=== PATIENT | female | born 1945 | race Caucasian/White ===

== ENCOUNTER 2020-07-14 13:06 | Outpatient (REF) | payer MEDICARE, OTHER, SELFPAY ==
--- NOTE | 2020-07-14 13:18 | XR_ITS ---
EXAMINATION: XR WRIST, RIGHT CLINICAL INFORMATION: Fracture follow-up COMPARISON: 06/20/2020 TECHNIQUE: PA, lateral, and oblique views of the right wrist. FINDINGS: Bones are demineralized. Overlying fiberglass cast obscures fine osseous detail. Previously seen nondisplaced fracture of the mid scaphoid waist is faintly appreciated. Moderate first CMC arthrosis. IMPRESSION: No change in alignment of the mid scaphoid waist fracture, which is poorly characterized beneath the fiberglass cast.
== END 2020-07-14 13:07 | disposition home or self-care (01) ==
LOC: HO.XRAY 13:06
PROVIDERS: PCP Internal Medicine; Referring Provider Internal Medicine; Visit Provider Physician Assistant
DX: S62.009D Unspecified fracture of navicular [scaphoid] bone of unspecified wrist, subsequent encounter for fracture with routine healing (principal); I10 Essential (primary) hypertension; E78.5 Hyperlipidemia, unspecified
CPT/HCPCS: 73100; 99212

== ENCOUNTER 2020-08-05 12:33 | Outpatient (REF) | payer MEDICARE, OTHER, SELFPAY ==
--- NOTE | 2020-08-05 12:36 | XR_ITS ---
EXAMINATION: XR WRIST, RIGHT CLINICAL INFORMATION: Follow up scaphoid fracture COMPARISON: Previous x-ray June and July 2020 TECHNIQUE: PA, lateral, and scaphoid views of the right wrist. FINDINGS: There is a transverse nondisplaced fracture of the mid scaphoid bone. Fracture line is still seen. There is increasing bony callus formation suggestive of evidence of healing. No other fracture is seen. There are degenerative changes at the first FDC joint. Soft tissues are unremarkable. XR/XR wrist RT min 3V IMPRESSION: Healing right scaphoid fracture.
== END 2020-08-05 12:34 | disposition home or self-care (01) ==
LOC: HO.HOSX 12:33
PROVIDERS: Visit Provider Physician Assistant
DX: S62.001A Unspecified fracture of navicular [scaphoid] bone of right wrist, initial encounter for closed fracture (principal); M81.0 Age-related osteoporosis without current pathological fracture; I10 Essential (primary) hypertension
CPT/HCPCS: 29075; 73110; 99212

== ENCOUNTER 2020-09-11 08:05 | Outpatient (REF) | payer MEDICARE, OTHER, SELFPAY ==
--- NOTE | 2020-09-11 13:00 | XR_ITS ---
EXAMINATION: XR HAND, RIGHT CLINICAL INFORMATION: Navicular fracture COMPARISON: August 05, 2020 and studies dating back to June 20, 2020 TECHNIQUE: Four views of the right hand and wrist. FINDINGS: There is osteopenia visualized bones. There is again noted to be a nondisplaced fracture of the mid scaphoid bone again there has been some progression in healing with the fracture line not appearing as evident. No dislocation identified. There is some degenerative change of the triscaphe joint and of the first carpometacarpal joint. There is also some degenerative narrowing of the second through fourth distal interphalangeal joints. XR/XR hand RT min 3V IMPRESSION: Osteopenia. Progression in healing of right navicular fracture. Degenerative change as described.
== END 2020-09-11 08:06 | disposition home or self-care (01) ==
LOC: HO.HOSX 08:05
PROVIDERS: Visit Provider Physician Assistant
DX: S62.009A Unspecified fracture of navicular [scaphoid] bone of unspecified wrist, initial encounter for closed fracture (principal)
CPT/HCPCS: 73130; 99212

== ENCOUNTER 2021-08-21 13:45 | Emergency (ER) | payer MEDICARE, OTHER, SELFPAY ==
--- NOTE | ~2021-08-21 | CT_ITS ---
EXAMINATION: CT ABDOMEN AND PELVIS WITH CONTRAST CLINICAL INFORMATION: Lower abdominal pain. Diarrhea. COMPARISON: Report pelvic ultrasound 10/11/2012. Lumbar spine radiographs 06/20/2022 TECHNIQUE: Multidetector volumetric images were obtained from the superior aspect of the liver through the pubic symphysis following administration 85 mL of Omnipaque 350 intravenous contrast. Sagittal and coronal reformatted images were obtained on the technologist's workstation. Oral contrast: No This CT examination was performed using dose optimization techniques as appropriate, variously including the following: *Automated exposure control *Adjustment of mA and/or kV according to patient size (this includes techniques or standardized protocols for targeted exams where dose is matched to indication/reason for exam; i.e. extremities or head) *Use of iterative reconstruction technique DLP: 907 mGy-cm FINDINGS: LUNG BASES: The visualized lung bases are unremarkable. LIVER, GALLBLADDER, AND BILIARY TREE: The liver is normal in size, shape, and attenuation. No focal hepatic lesion or biliary ductal dilatation is present. Gallbladder is absent and multiple surgical clips are present within the gallbladder fossa. No biliary duct dilatation. The common bile duct measures 6 mm in diameter. PANCREAS: Unremarkable. SPLEEN: Approximately 1 cm linear calcifications along the superior margin of the surface of the spleen and is benign in appearance. ADRENAL GLANDS: Unremarkable. KIDNEYS AND URETERS: No suspicious parenchymal lesions. No hydronephrosis or perinephric inflammatory changes. No urolithiasis identified. BLADDER: Unremarkable. GASTROINTESTINAL TRACT: Moderate diverticulosis of the sigmoid colon. Minimal diverticulosis of the descending colon. The appendix is not visualized. Normal terminal ileum. No pericecal inflammatory changes. No free intraperitoneal fluid or gas collections. Normal appearance of the sigmoid and small bowel mesentery is. No intestinal mural thickening or dilatation. ABDOMINAL WALL: No significant hernia is appreciated. LYMPH NODES: Normal. VASCULAR: Mild scattered calcific atherosclerosis. PELVIC VISCERA: No adnexal lesions. Normal vertebral uterus. OSSEOUS STRUCTURES: No acute skeletal abnormalities identified. Chronic appearing mild anterior wedge deformity of the L4 vertebral body is present. An acute L4 fracture was noted on the comparison study of 06/20/2020. Multilevel endplate discogenic marrow signal changes, and vertebral disc space vacuum phenomena, Schmorl's node deformities are noted. CT/CT abdomen pelvis w con IMPRESSION: IV contrast-enhanced CT the abdomen and pelvis: -No acute abnormalities identified. -Moderate sigmoid diverticulosis. No evidence of acute diverticulitis. -Status post cholecystectomy. 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 Multilevel chronic spondylosis of the visualized thoracic and lumbar spine. -The appendix is not visualized and may be surgically absent.
[2021-08-21 13:57] VITALS: BP 158/71; PULSE 83; RESP 18; TEMP 37.3; O2SAT 83; BMI 36.8
--- NOTE | 2021-08-21 14:49 | ECG_ITS ---
Test Reason : WEAKNESS Blood Pressure : / mmHG Vent. Rate : 075 BPM Atrial Rate : 075 BPM P-R Int : 176 ms QRS Dur : 094 ms QT Int : 404 ms P-R-T Axes : 047 067 023 degrees QTc Int : 451 ms Normal sinus rhythm RSR' or QR pattern in V1 suggests right ventricular conduction delay Otherwise normal ECG No previous ECGs available Referred By: Gloria Gambino Electronically Signed By:KARLEE VILLA MD
--- NOTE | 2021-08-21 14:59 | ED.GENADULT ---
HPI - General Adult General Chief complaint: General Medical Stated complaint: pelvic pain diarrhea not eating Time Seen by Provider: 08/21/21 14:41 Source: patient Mode of arrival: ambulatory Limitations: no limitations History of Present Illness HPI narrative: 75-year-old female with a history of GERD, hypertension, hyperlipidemia, anxiety, depression here with complaints of lower abdominal cramping for the last 2-3 weeks with associated diarrhea and chills. Patient denies any vomiting, urinary symptoms. Patient tells me she did drop off a stool sample at the lab this morning for testing but is unsure what testing will be done. No recent antibiotics. No recent travel. No recent hospitalization. No sick contact. Fully vaccinated for COVID Related Data Home Medications Medication Instructions Recorded Confirmed amlodipine 2.5 mg tablet 2.5 mg PO DAILY 07/14/20 atorvastatin 10 mg tablet 10 mg PO BEDTIME 07/14/20 cholecalciferol (vitamin D3) 1,250 1,250 mcg PO QWEEK 07/14/20 mcg (50,000 unit) capsule fluoxetine 10 mg capsule 10 mg PO DAILY 07/14/20 lorazepam 0.5 mg tablet 0.5 mg PO BEDTIME PRN 07/14/20 omeprazole 20 mg capsule,delayed 20 mg PO DAILY 07/14/20 release vitamin B complex (B 1 tab PO DAILY 07/14/20 Complex-Vitamin B12) calcium carbonate 500 mg calcium 500 mg PO DAILY 08/05/20 (1,250 mg) tablet (Calcium 500) Previous Rx's Medication Instructions Recorded arm brace (Wrist Brace) #1 ea 09/17/20 dicyclomine 10 mg capsule 10 mg PO TID PRN #20 cap 08/21/21 Allergies Allergy/AdvReac Type Severity Reaction Status Date / Time No Known Allergies* Allergy Unknown Uncoded 07/14/20 13:30 Review of Systems Review of Systems: Yes all other systems are reviewed and are negative Constitutional: Constitutional: Reports no additional constitutional complaints, Denies body ache(s), Reports chills, Denies fever(s), Denies headache(s) and Denies weakness Eyes: Eyes: Reports no additional eye complaints and Denies change in vision ENT: Reports system reviewed and no additional complaints, except as documented, Denies dizziness, Denies headache(s), Denies nasal congestion, Denies nasal discharge and Denies neck pain Cardiovascular: Cardiovascular: Reports no additional cardiovascular complaints, Denies chest pain, Denies leg edema and Denies dyspnea Respiratory: Respiratory: Reports no additional respiratory complaints, Denies cough and Denies dyspnea Gastrointestinal: Gastrointestinal: Reports no additional gastrointestinal complaints, Reports abdominal pain, Reports diarrhea, Denies nausea and Denies vomiting Genitourinary: Genitourinary: Reports no additional female genitourinary complaints and Denies urinary incontinence Musculoskeletal: Musculoskeletal: Reports no additional musculoskeletal complaints, Denies back pain, Denies arthralgias, Denies joint swelling, Denies neck pain, Denies numbness and Denies tingling Integumentary/Breasts: Skin/Breast: Reports system reviewed and no additional complaints, except as docu and Denies rash Neurologic: Reports system reviewed and no additional complaints, except as documented, Denies Abnormal speech present, Denies dizziness, Denies headache(s), Denies numbness, Denies tingling and Denies weakness PMFSH Past Medical History Attestation statement: The following information was validated with the patient. Source: old records reviewed and nursing notes reviewed Medical History History of hyperlipidemia HTN (hypertension) Osteoporosis Surgical History History of cholecystectomy History of total bilateral knee replacement Social History Social History Alcohol intake: never Patient Tobacco Use Status: Never used Tobacco Use of substances other than those prescribed or required for medical reasons: No Advance Directives: No Advance Directives Information Provided: Yes Physical Exam Vital Signs: Vital Signs: Last Vital Signs Temp 98.4 F 08/21/21 16:51 Pulse 77 08/21/21 16:51 Resp 16 08/21/21 16:51 BP 129/52 L 08/21/21 16:51 Pulse Ox 100 08/21/21 16:51 Body Mass Index 36.8 Const: General: cooperative, healthy appearing, comfortable and no acute distress Orientation/consciousness: patient oriented x3 Limitations: no limitations HENMT: Head: Yes normal to inspection Ears: hearing grossly normal bilaterally General nose exam: Normal external nose present Face and sinus: Yes normal facial exam Mouth: Normal oral and palatal mucosa present Throat: Yes posterior oropharynx normal Eyes: General: appearance normal, both eyes and all related structures Pupils: Equal, round and reactive pupils present Neck: Neck: Yes normal visual inspection Chest: Chest palpation & inspection: normal inspection of the chest Resp: Effort & Inspection: normal respiratory effort Auscultation: clear to auscultation bilaterally Cardio: Rate: regular rate Rhythm: regular rhythm Peripheral pulses: Peripheral pulses 2+ throughout GI: Inspection: Yes normal to inspection Palpation (GI): Soft to palpation and Tenderness to palpation present (GI) (Left lower quadrant no rebound or guarding) Auscultation: normal bowel sounds Back/Spine/Pelvis: Thoracic/Lumbar Spine: thoracic and lumbar spine normal to inspection Skin: General skin exam: no rashes or lesions noted Neuro: General: patient oriented x3, no focal motor deficits and normal sensation to monofilament Cranial nerves: Yes Equal, round and reactive pupils present Cognition (Neuro): normal cognition Speech: No Abnormal speech present Gait exam (Neuro): Normal gait present Motor exam (neuro): 5/5 motor strength present throughout Extrem: General: Yes normal to inspection Course Course Course Narrative: 75-year-old female here with complaints of lower abdominal cramping with chills and diarrhea for the last 2 weeks despite supportive measures patient having continued symptoms. Now feeling weak and tired. Patient reports 2-3 episodes of diarrhea day. They are nonbloody. No risk factors for C diff. Will check labs, UA, stool studies and CT 1715-labs unremarkable. UA shows no acute finding. CT is unremarkable. Patient has had no stools while being here in the emergency department. I did explain to her I would like to obtain stool studies and she will try to eat something and then provide a stool sample. She tells me she did drop off 1 stool sample to her primary care office lab but does not know what orders were placed by her primary care. No risk factors for C diff so I would hold on treatment until her results are back. Medical Decision Making Medical Records Medical records reviewed: Yes I reviewed the patient's medical records. Lab Data Lab results reviewed: Yes I reviewed the patient's lab results. Result diagrams: 08/21/21 15:13 08/21/21 15:13 Labs: Lab Results 08/21/21 08/21/21 08/21/21 Range/Units 15:13 15:13 15:13 WBC 5.5 (4.8-10.8) X10*3/uL RBC 3.58 L (4.20-5.50) X10*6/uL Hgb 12.0 (12.0-16.0) g/dl Hct 34.2 L (37.0-47.0) % MCV 95.5 (80.0-98.0) fL MCH 33.5 H (27.0-33.0) pg MCHC 35.1 H (31.0-35.0) g/dl RDW 13.0 (11.0-16.0) % Plt Count 226 (160-400) X10*3/uL MPV 9.7 (9.4-12.3) fL Immature Gran % (Auto) 0.4 (0.0-0.4) % Neut % (Auto) 72.6 (45-73) % Lymph % (Auto) 17.5 L (20-40) % [place] % (Auto) 8.4 (2-11) % Eos % (Auto) 0.4 (0-4) % Baso % (Auto) 0.7 (0-2) % Lymph # (Auto) 1.0 L (1.2-4.9) X10*3/uL [place] # (Auto) 0.5 (0.1-1.2) X10*3/uL Eos # (Auto) 0.0 (0.0-0.4) X10*3/uL Baso # (Auto) 0.0 (0.0-0.2) X10*3/uL Abs Immat Gran (auto) 0.02 (0.00-0.03) X10*3/uL Absolute Neuts (auto) 4.0 (2.0-8.3) x10*3/uL Absolute Nucleated RBC 0.000 (0.0-0.012) X10*3/uL Nucleated RBC % (auto) 0.0 (0.0-0.2) /100WBC Sodium 133 L (135-145) mmol/L Potassium 4.3 (3.3-5.1) mmol/L Chloride 101 (96-108) mmol/L Carbon Dioxide 20 L (22-29) mmol/L Anion Gap 16 (12-20) BUN 11 (9-16) mg/dL Creatinine 0.94 (0.5-1.4) mg/dL Estim Creat Clear Calc 64.7 Estimated GFR 58 Random Glucose 99 (60-115) mg/dL Lactic Acid 1.1 (0.5-2.0) mmol/L Calcium 9.5 (8.4-10.2) mg/dL Magnesium 2.1 (1.6-2.6) mg/dL Total Bilirubin 0.9 (0.0-1.0) mg/dL Direct Bilirubin 0.3 (0.0-0.5) mg/dL AST 21 (5-31) U/L ALT 16 (0-31) U/L Alkaline Phosphatase 56 (39-117) U/L Total Protein 6.8 (6.5-8.0) g/dL Albumin 4.2 (3.5-5.0) g/dL Lipase 26 (8-78) U/L Urine Color Urine Appearance Urine pH (5.0-8.0) Ur Specific [place] (1.005-1.025) Urine Protein (NEG-TRACE) MG/DL Urine Glucose (UA) (NEG) MG/DL Urine Ketones (NEG) MG/DL Urine Blood (NEG) Urine Nitrite (NEG) Ur Leukocyte Esterase (NEG) 08/21/ Range/Units 16:44 WBC (4.8-10.8) X10*3/uL RBC (4.20-5.50) X10*6/uL Hgb (12.0-16.0) g/dl Hct (37.0-47.0) % MCV (80.0-98.0) fL MCH (27.0-33.0) pg MCHC (31.0-35.0) g/dl RDW (11.0-16.0) % Plt Count (160-400) X10*3/uL MPV (9.4-12.3) fL Immature Gran % (Auto) (0.0-0.4) % Neut % (Auto) (45-73) % Lymph % (Auto) (20-40) % [place] % (Auto) (2-11) % Eos % (Auto) (0-4) % Baso % (Auto) (0-2) % Lymph # (Auto) (1.2-4.9) X10*3/uL [place] # (Auto) (0.1-1.2) X10*3/uL Eos # (Auto) (0.0-0.4) X10*3/uL Baso # (Auto) (0.0-0.2) X10*3/uL Abs Immat Gran (auto) (0.00-0.03) X10*3/uL Absolute Neuts (auto) (2.0-8.3) x10*3/uL Absolute Nucleated RBC (0.0-0.012) X10*3/uL Nucleated RBC % (auto) (0.0-0.2) /100WBC Sodium (135-145) mmol/L Potassium (3.3-5.1) mmol/L Chloride (96-108) mmol/L Carbon Dioxide (22-29) mmol/L Anion Gap (12-20) BUN (9-16) mg/dL Creatinine (0.5-1.4) mg/dL Estim Creat Clear Calc Estimated GFR Random Glucose (60-115) mg/dL Lactic Acid (0.5-2.0) mmol/L Calcium (8.4-10.2) mg/dL Magnesium (1.6-2.6) mg/dL Total Bilirubin (0.0-1.0) mg/dL Direct Bilirubin (0.0-0.5) mg/dL AST (5-31) U/L ALT (0-31) U/L Alkaline Phosphatase (39-117) U/L Total Protein (6.5-8.0) g/dL Albumin (3.5-5.0) g/dL Lipase (8-78) U/L Urine Color YELLOW Urine Appearance CLEAR Urine pH 6.0 (5.0-8.0) Ur Specific [place] 1.015 (1.005-1.025) Urine Protein NEG (NEG-TRACE) MG/DL Urine Glucose (UA) NEG (NEG) MG/DL Urine Ketones 15 (NEG) MG/DL Urine Blood NEG (NEG) Urine Nitrite NEG (NEG) Ur Leukocyte Esterase NEG (NEG) Imaging Data CT scan - abdomen: Attestation: I personally reviewed and interpreted this imaging study as follows: Radiologist's impression: IMPRESSION: IV contrast-enhanced CT the abdomen and pelvis: -No acute abnormalities identified. -Moderate sigmoid diverticulosis. No evidence of acute diverticulitis. -Status post cholecystectomy. 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 Multilevel chronic spondylosis of the visualized thoracic and lumbar spine. -The appendix is not visualized and may be surgically absent.? ? ECG Data Attestation: I personally reviewed and interpreted this ECG as follows: Interpretation: Normal sinus rhythm with a rate of 75, normal [place], normal QRS, normal QT Discharge Plan Discharge Clinical Impression: Diarrhea Patient Disposition: Home, Self-Care Instructions: Acute Diarrhea (ED) Additional Instructions: Start with clear liquids and advance diet as tolerated BRAT diet (bananas, white rice, apple sauce, plain toast). Be careful with Imodium as this could cause further problems Your lab work, UA and CT all look normal. We will call you if your stool studies show any bacteria that require treatment Prescriptions: New dicyclomine 10 mg capsule 10 mg PO TID PRN (Reason: abdominal pain) Qty: 20 RF: 0 No Action (DME) Wrist Brace Misc See Rx Instructions .MEDSUPPLY Qty: 1 RF: 0 Referrals: Wesley Pruitt MD [Primary Care Provider] - 2 days
[2021-08-21 15:01] VITALS: PULSE 71; RESP 18; O2SAT 99
[2021-08-21] MEDS: 0.9 % Sodium Chloride 1,000 ML 999 ML IV (15:17)
[2021-08-21 15:26] LABS: Basophils Percent Auto 0.7 % (0-2); Eosinophils Percent Auto 0.4 % (0-4); Hematocrit 34.2 % (37.0-47.0); Imm Gran Abs Auto 0.02 X10*3/uL (0.00-0.03); Imm Gran Pct Auto 0.4 % (0.0-0.4); Lymphocytes Percent Auto 17.5 % (20-40); MANUAL DIFF FLAG NO; Mean Corpuscular HGB Conc 35.1 g/dl (31.0-35.0); Mean Corpuscular Hemoglobin 33.5 pg (27.0-33.0); Mean Corpuscular Volume 95.5 fL (80.0-98.0); Mean Platelet Volume 9.7 fL (9.4-12.3); Monocytes Absolute Auto 0.5 X10*3/uL (0.1-1.2); Monocytes Percent Auto 8.4 % (2-11); Neutrophils Percent Auto 72.6 % (45-73); Platelet Count 226 X10*3/uL (160-400); Red Blood Count 3.58 X10*6/uL (4.20-5.50); White Blood Count 5.5 X10*3/uL (4.8-10.8)
--- NOTE | 2021-08-21 15:30 | PC.NURSE ---
patient a&ox3, iv inserted, labs drawn, ivf hanging per order, pt aware we need urine
[2021-08-21 15:39] LABS: Lactic Acid 1.1 mmol/L (0.5-2.0)
[2021-08-21 16:01] LABS: Alanine Aminotransferase 16 U/L (0-31); Albumin Level 4.2 g/dL (3.5-5.0); Alkaline Phosphatase 56 U/L (39-117); Anion Gap 16 (12-20); Aspartate Amino Transferase 21 U/L (5-31); Bilirubin Direct 0.3 mg/dL (0.0-0.5); Bilirubin Total 0.9 mg/dL (0.0-1.0); Blood Urea Nitrogen 11 mg/dL (9-16); Calcium 9.5 mg/dL (8.4-10.2); Carbon Dioxide 20 mmol/L (22-29); Chloride 101 mmol/L (96-108); Creatinine Clr Calc Pharmacy 64.7; Estimated Glomerular Filt Rate 58; Glucose Random 99 mg/dL (60-115); Lipase 26 U/L (8-78); Magnesium 2.1 mg/dL (1.6-2.6); Potassium 4.3 mmol/L (3.3-5.1); Sodium 133 mmol/L (135-145); Total Protein 6.8 g/dL (6.5-8.0)
[2021-08-21] MEDS: iohexoL 350 MG/ML 100 ML INFUS..BTL IV (16:35)
--- NOTE | 2021-08-21 16:45 | PC.NURSE ---
urine obtained, pt aware we need stool
[2021-08-21 16:50] LABS: Appearance Urine CLEAR; Color Urine YELLOW; Glucose Urine UA NEG (NEG); Leukocyte Esterase Urine NEG (NEG); Nitrite Urine NEG (NEG); Specific Gravity - Urine 1.015 (1.005-1.025); Urine Blood NEG (NEG); Urine Ketones 15 MG/DL (NEG); Urine Protein NEG (NEG-TRACE)
[2021-08-21 16:51] VITALS: BP 129/52; PULSE 77; RESP 16; TEMP 36.9; O2SAT 100
[2021-08-21] MEDS: Dicyclomine HCl 10 MG CAPSULE PO (18:16)
== END 2021-08-21 18:23 | disposition home or self-care (01) ==
PROVIDERS: Nurse Practitioner Family; Emergency Provider Emergency Medicine Emergency Medical Services; PCP Internal Medicine
DX: R19.7 Diarrhea, unspecified (principal); I10 Essential (primary) hypertension
CPT/HCPCS: 36415; 74177; 80048; 80076; 81003; 83605; 83690; 83735; 85025; 87040; 93005; 96360; 99284; Q9967

== ENCOUNTER 2024-02-23 10:26 | Emergency (ER) | payer MEDICARE, OTHER, SELFPAY ==
[2024-02-23 11:11] VITALS: BP 158/61; PULSE 86; RESP 20; TEMP 36.5; O2SAT 96; BMI 41.8
--- NOTE | 2024-02-23 11:12 | ED.ABDPAIN ---
HPI - Abdominal Pain General Chief Complaint: Abdominal Pain Stated Complaint: stomach issues Related Data Home Medications ?Medication ?Instructions ?Recorded ?Confirmed amlodipine 2.5 mg tablet 2.5 mg PO DAILY 07/14/20 atorvastatin 10 mg tablet 10 mg PO BEDTIME 07/14/20 cholecalciferol (vitamin D3) 1,250 1,250 mcg PO QWEEK 07/14/20 mcg (50,000 unit) capsule fluoxetine 10 mg capsule 10 mg PO DAILY 07/14/20 lorazepam 0.5 mg tablet 0.5 mg PO BEDTIME PRN 07/14/20 omeprazole 20 mg capsule,delayed 20 mg PO DAILY 07/14/20 release vitamin B complex (B 1 tab PO DAILY 07/14/20 Complex-Vitamin B12 tablet) calcium carbonate (Calcium 500) 500 mg PO DAILY 08/05/20 Previous Rx's ?Medication ?Instructions ?Recorded arm brace (Wrist Brace) #1 ea 09/17/20 dicyclomine 10 mg capsule 10 mg PO TID PRN abdominal pain 08/21/21 #20 caps Allergies Allergy/AdvReac Type Severity Reaction Status Date / Time No Known Allergies* Allergy Unknown Uncoded 02/23/24 11:15 [facility] Past Medical History Medical History History of hyperlipidemia HTN (hypertension) Osteoporosis Surgical History History of cholecystectomy History of total bilateral knee replacement Social History Social History Alcohol intake: never Patient Tobacco Use Status: Never used Tobacco Advance Directives: No Advance Directives Information Provided: Yes Physical Exam ED Vital Signs: BMI result Body Mass Index 41.8 Course Course Course Narrative: This is an RME: Additional HPI, ROS, PE not included below will be deferred to primary provider. RME assessment and note performed by: Dahlia Alegria PA-C This is a [id number]-female, with a hx GERD, hypertension, hyperlipidemia, anxiety, depression who presents to the ER with complaints of abdominal pain x 1 month. Reporting pain is constant, worse in the AM. Reporting diarrhea. Sees Dr. Garcia. Plan: Labs, UA Reevaluation(s) Reevaluation #1: Patient left without completing treatment. Medical Decision Making Lab Data 02/23/24 11:53 02/23/24 11:53 Labs: Lab Results 02/23/24 02/23/24 Range/Units 11:53 16:15 WBC 6.5 (4.8-10.8) X10*3/uL RBC 3.24 L (4.20-5.50) X10*6/uL Hgb 11.1 L (12.0-16.0) g/dl Hct 31.6 L (37.0-47.0) % MCV 97.5 (80.0-98.0) fL MCH 34.3 H (27.0-33.0) pg MCHC 35.1 H (31.0-35.0) g/dl RDW 13.0 (11.0-16.0) % Plt Count 193 (160-400) X10*3/uL MPV 9.4 (9.4-12.3) fL Immature Gran % (Auto) 0.2 (0.0-0.4) % Neut % (Auto) 76.0 H (45-73) % Lymph % (Auto) 13.2 L (20-40) % [place] % (Auto) 8.1 (2-11) % Eos % (Auto) 1.9 (0-4) % Baso % (Auto) 0.6 (0-2) % Lymph # (Auto) 0.9 L (1.2-4.9) X10*3/uL [place] # (Auto) 0.5 (0.1-1.2) X10*3/uL Eos # (Auto) 0.1 (0.0-0.4) X10*3/uL Baso # (Auto) 0.0 (0.0-0.2) X10*3/uL Abs Immat Gran (auto) 0.01 (0.00-0.03) X10*3/uL Absolute Neuts (auto) 4.9 (2.0-8.3) x10*3/uL Absolute Nucleated RBC 0.000 (0.0-0.012) X10*3/uL Nucleated RBC % (auto) 0.0 (0.0-0.2) /100WBC Sodium 136 (135-145) mmol/L Potassium 3.9 (3.3-5.1) mmol/L Chloride 102 (96-108) mmol/L Carbon Dioxide 24 (22-29) mmol/L Anion Gap 14 (12-20) BUN 14 (9-16) mg/dL Creatinine 1.10 (0.5-1.4) mg/dL Estim Creat Clear Calc 56.7 Estimated GFR 48 Random Glucose 105 (60-115) mg/dL Calcium 9.8 (8.4-10.2) mg/dL Magnesium 1.9 (1.6-2.6) mg/dL Total Bilirubin 0.6 (0.0-1.0) mg/dL Direct Bilirubin 0.3 (0.0-0.5) mg/dL AST 12 (5-31) U/L ALT 9 (0-31) U/L Alkaline Phosphatase 88 (39-117) U/L Troponin I High Sens < 2.7 (<3.5-17.0) ng/L Total Protein 7.0 (6.5-8.0) g/dL Albumin 4.2 (3.5-5.0) g/dL Lipase 19 (8-78) U/L Urine Color Yellow Urine Appearance Clear Urine pH 5.5 (5.0-9.0) Ur Specific [place] 1.020 (1.005-1.025) Urine Protein Trace (Neg-Trace) mg/dL Urine Glucose (UA) Negative (Negative) mg/dL Urine Ketones 15 (Negative) mg/dL Urine Blood Negative (Negative) Urine Nitrite Negative (Negative) Ur Leukocyte Esterase Small (1+) H (Negative) Urine RBC 0-2 (0-2) /HPF Urine WBC 6-10 H (0-5) /HPF Ur Squamous Epith Cells 3-5 (0-2) /HPF Urine Bacteria None Seen (None Seen) Hyaline Casts 0-2 (0-2) /LPF Discharge Plan Discharge Clinical Impression: Abdominal pain Patient Disposition: Left W/O Completing Treatment Prescriptions: No Action dicyclomine 10 mg capsule 10 mg PO TID PRN (Reason: abdominal pain) Qty: 20 0RF (DME) Wrist Brace Misc See Rx Instructions .MEDSUPPLY Qty: 1 0RF Rx Instructions: comfort form wrist/thumb rt m Discharge Date/Time: 02/23/24 18:09
--- NOTE | 2024-02-23 11:13 | ECG_ITS ---
Test Reason : EPIGASTRIC PAIN Blood Pressure : / mmHG Vent. Rate : 068 BPM Atrial Rate : 068 BPM P-R Int : 164 ms QRS Dur : 078 ms QT Int : 388 ms P-R-T Axes : 007 059 013 degrees QTc Int : 412 ms Normal sinus rhythm Normal ECG When compared with ECG of 21-AUG-2021 15:33, No significant change was found Referred By: Dahlia Alegria Electronically Signed By:Vidal Geller
--- OUTSIDE RECORDS SUMMARY | 2024-02-23 11:56 | XMS_ITS | Continuity of Care Document ---
Author Organization [facility] Trace Sae lt Address [address] [place] [address]- Care Team Providers Care Management Professionals Name Role Phone Edmond BRANDT, Wesley Kaur Primary Care Physician [phone] [facility] - 07/10/21 [facility] Adult [address] [place] [address]- Allergies, Adverse Reactions, Alerts Substance Reaction Severity Status ciprofloxacin diarrhea Active codeine nausea Active baclofen SEVERE GI UPSET Active Macrobid GI upset Active Spiriva 1 Active 1urinary Immunizations Given and Recorded Vaccine Date Status Refusal Reason influenza virus vaccine, inactivated 08/19/20 Give n influenza virus vaccine, inactivated 08/06/19 Give n influenza virus vaccine, inactivated 08/03/18 Give n influenza virus vaccine, inactivated 1 07/11/17 Gi marlene influenza virus vaccine, inactivated 07/22/16 Give n influenza virus vaccine, inactivated 08/21/15 Give n influenza virus vaccine, inactivated 08/08/14 Give n influenza virus vaccine, inactivated 06/10/13 Give n influenza virus vaccine, inactivated 08/17/10 Give n zoster vaccine, inactivated 05/21/20 Recorded tetanus-diphtheria toxoids (Td) 01/10/18 Given tetanus-diphtheria toxoids (Td) 12/01/95 Given pneumococcal 13-valent vaccine 10/22/14 Given FluLaval (oldterm) 06/08/12 Given influ virus vac, H1N1, inactive(oldterm) 06/15/11 Given influ virus vac, H1N1, inactive(oldterm) 2 09/22/09 Given Zostavax (oldterm) 05/13/09 Given Influenza Inactive (IM) (oldterm) 3 08/05/08 Given Tet/Diphth/Acel, Pertussis (oldterm) 12/05/07 Give n Pneumococcal 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 Given 1Result Comment: [07/11/2017] [facility]; 37555-979-73 HIGH DOSE 2Admin Note: H1N1 3Admin Note: recieved elsewhere Medications amLODIPine 5 mg oral tablet 1 tablet, By Mouth, Daily, # 90 tablet, 1 Refills, Maintenance, 06/02/21 17:26:00 EDT, [facility], 167.6, cm, 02/24/21 14:50:00 EDT, Height, 107.9, kg, 02/24/21 13:39:00 EDT, Dry Weight Start Date: 06/02/21 Status: Ordered atorvastatin 40 mg oral tablet 1 tablet = 40 mg, By Mouth, Daily, # 90 tablet, 1 Refills, Soft Stop, 03/04/21 12:12:00 EDT, [facility], 167.6, cm, 02/24/21 14:50:00 EDT, Height, 107.9, kg, 02/24/21 13:39:00 EDT,Dry Weight Start Date: 03/04/21 Status: Ordered cholecalciferol 2000 intl units oral tablet See Instructions, 1 tablet By Mouth Daily m-;2 , 11 Refills, Maintenance Start Date: 11/11/09 Status: Ordered Colace Capsule 100 mg, 1, capsule, By Mouth, 2 times a day, Refills 0, Maintenance, 09/19/19 11:56:00 EST Start Date: 09/19/19 Status: Ordered Eligen B12 1000 mcg oral tablet 1 tablet, By Mouth, Daily, on an empty stomach, # 30 tablet, 11 Refills, Maintenance, 03/15/17 21:10:26, Tablet Start Date: 03/15/17 Status: Ordered FLUoxetine 20 mg oral capsule 20 mg, 1, capsule, By Mouth, Daily, # 90 capsule, Refills 3, Tot. Refills 3, Maintenance, 02/22/21 14:32:00 EDT, Route to Pharmacy Electronically, [facility], Partial fill upon patient request if the prescription is for a schedule I... Start Date: 02/22/21 Status: Ordered fluticasone 50 mcg/inh nasal spray 2 sprays, Nasal, Daily, in each nostril use opposite hnad for each nostril, # 16 Gm, 1 Refills, Maintenance, 01/09/21 10:28:00 EDT, [facility], 2 sprays Nasal Daily,Instr:in each nostril; use opposite hnad for each nostril, 167.6,... Start Date: 01/09/21 Status: Ordered Imodium A-D 2 mg oral tablet 2 mg, 1, tablet, By Mouth, Every 4 hours, PRN, # 60 tablet, Refills 0, Maintenance, for loose stool, 09/17/19 6:57:56 EST Start Date: 09/17/19 Status: Ordered LORazepam 0.5 mg oral tablet 1 tablet = 0.5 mg, By Mouth, Daily at bedtime, # 90 tablet, 0 Refills, Maintenance, 04/14/21 11:41:00 EDT, [facility], 167.6, cm, 02/24/21 14:50:00 EDT, Height, 107.9, kg, 02/24/2113:39:00 EDT, Dry Weight Start Date: 04/14/21 Status: Ordered omeprazole 20 mg oral enteric coated capsule 1 capsule = 20 mg, By Mouth, Daily, # 90 capsule, 3 Refills, Maintenance, 08/26/20 13:24:00 EST, ECCapsule, [facility], 167.6, cm, 08/19/20 7:30:00 EST, Height, 101.2, kg, 09/17/19 10:13:00 EST, Dry Weight Start Date: 08/26/20 Stop Date: 08/21/21 Status: Ordered Reclast 5 mg/100 mL intravenous solution = 5 mg, IV Infusion, Once, # 1 each, 0 Refills, Maintenance, 01/25/21 9:53:00 EDT, Partial fill upon patient request if the prescription is for a schedule II opioid drug. Start Date: 01/25/21 Status: Ordered spacer for MDI spacer for MDI, See Instructions, # 1 box, Refills 0, Tot. Refills 0, Maintenance, use with MDI, 11/13/13 14:49:18, Compound Start Date: 11/13/13 Status: Ordered Voltaren 1% topical gel = 2 Gm, Topically, 4 times a day, # 100 Gm, 0 Refills, Maintenance, 05/07/20 9:13:00 EDT, Gel, [facility], 2 Gm Topically 4 times a day, 167.6, cm, 05/07/20 8:56:00 EDT, Height, 101.2, kg, 09/17/19 10:13:00 EST, Dry Weight Start Date: 05/07/20 Status: Ordered Problem List Condition Effective Dates Status Health Status Inform ant Allergic rhinitis(Confirmed) Active Anxiety(Confirmed) Active Aortic heart murmur;nil echo 2016(Confirmed) 1 Active Back pain, chronic(Confirmed) Active Chronic fatigue(Confirmed) Active Chronic renal disease, stage 3, moderately decreased glomerular filtration rate (GFR) between 30-59 mL/min/1.73 square meter(Confirmed) Active Cough variant asthma(Confirmed) 2 Active Dysplastic toenail rt bidg 2 020 refrer podiatry(Confirmed) Active Diverticulosis, sigmoid(Confirmed) 09/12/08 Active Encounter for monitoring barbra g-term proton pump inhibitor therapy(Confirmed) Active Essential familial hyperlipidemia(Confirmed) Active L4 vertebral fracture fall/trauma(Confirmed) 06/20/20 Active GERD without esophagitis egd 2018(Confirmed) 3, 4 Active History of arthroplasty of l eft knee(Confirmed) 09/17/19 Active Hyperparathyroidism ndocrinology(Confirmed) Active Hypertension(Confirmed) Active IBS (irritable bowel syndrome)(Confirmed) 5 Active Impaired fasting glucose(Confirmed) 6 Active LVH (left ventricular hypert rophy) Echo 2016(Confirmed) Active Depression, major(Confirmed) 7, 8, 9, 10 Active Epicondylitis elbow, medial( Confirmed) 11 Active Obesity (BMI 30-39.9)(Confirmed) Active Osteoporosis endocrinology addresing(Confirmed) 04/02/20 Active Chronic venous insufficiency(Confirmed) Active PND (post-nasal drip) globus(Confirmed) Active Pyuria(Confirmed) Active Trochanteric bursitis of lef t hip(Confirmed) Active Unspecified Vitamin D Deficiency(Confirmed) 12 Active 1referv echo 2Borderline mild obstruction pre-bronchodilator. Significant response to bronchodilator to normal. The MVV is consistent with the level of FEV1. Lung volumes are normal. The carbon monoxide diffusing capacity is normal. The inspired volume is less than the vital capacity indicating that the actual DLCO may be underestimated. The findings of significant bronchodilator response to normal with normal DLCO is consistent with asthma. 3had EGD 4EGD pending 5seeing DR estrada.workup 6advised pre diabetic increased risk diabetes 7PHQ9;one 8PHQ(;one-=remission 9PHQ9 1=remission 10zung 38 today;normal in counselling 11exercises 12rx Social History Social History Type Response Smoking Status Never smoker entered on: 10/09/13 Sex
--- OUTSIDE RECORDS SUMMARY | 2024-02-23 11:57 | XMS_ITS | Continuity of Care Document ---
Author Organization [facility] Trace Sae lt Address [address] [place] [address]- Care Team Providers Care Passenger Car Upholsterer Apprentice Name Role Phone Jovana Pal NP Primary Care Physician [facility]): [facility]24 - 02/11/24 [facility] Adult [address] [place] [address]- Attending Physician: Serena Armendariz Referring Physician: Jovana Pal NP Allergies, Adverse Reactions, Alerts Substance Reaction Severity Status ciprofloxacin diarrhea Active codeine nausea Active Spiriva 1 Active baclofen SEVERE GI UPSET Active Macrobid GI upset Active 1urinary Immunizations Given and Recorded Vaccine Date Status Refusal Reason influenza virus vaccine, inactivated 1 07/18/23 Gi marlene influenza virus vaccine, inactivated 2 08/12/22 Gi marlene influenza virus vaccine, inactivated 3 07/26/21 Gi marlene influenza virus vaccine, inactivated 08/19/20 Give n influenza virus vaccine, inactivated 08/06/19 Give n influenza virus vaccine, inactivated 08/03/18 Give n influenza virus vaccine, inactivated 4 07/11/17 Gi marlene influenza virus vaccine, inactivated 07/22/16 Give n influenza virus vaccine, inactivated 08/21/15 Give n influenza virus vaccine, inactivated 08/08/14 Give n influenza virus vaccine, inactivated 06/10/13 Give n influenza virus vaccine, inactivated 08/17/10 Give n pneumococcal 20-valent conjugate vaccine 5 02/13/23 Given [id number] 12y+ bivalent booster vax 6 08/12/22 Given SARS-CoV-2 (COVID-19) mRNA-1273 vaccine 10/19/21 R ecorded pneumococcal 23-valent vaccine 7 07/26/21 Given SARS-CoV-2 (COVID-19) mRNA BNT-162b2 vac 01/21/21 Recorded SARS-CoV-2 (COVID-19) mRNA BNT-162b2 vac 12/30/20 Recorded zoster vaccine, inactivated 09/23/20 Recorded zoster vaccine, inactivated 05/21/20 Recorded tetanus-diphtheria toxoids (Td) 01/10/18 Given tetanus-diphtheria toxoids (Td) 12/01/95 Given pneumococcal 13-valent vaccine 10/22/14 Given FluLaval (oldterm) 06/08/12 Given influ virus vac, H1N1, inactive(oldterm) 06/15/11 Given influ virus vac, H1N1, inactive(oldterm) 8 09/22/09 Given Zostavax (oldterm) 05/13/09 Given Influenza Inactive (IM) (oldterm) 9 08/05/08 Given Tet/Diphth/Acel, Pertussis (oldterm) 12/05/07 Give n Pneumococcal 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 Given 1Result Comment: [id number] 2Result Comment: [facility]-[id number] left upper deltoid 3Result Comment: [facility]: [id number] 4Result Comment: [07/11/2017] [facility]; [id number] HIGH DOSE 5Result Comment: [id number] 6Result Comment: [facility]-[id number] left lower deltoid 7Result Comment: [facility]: [id number] 8Admin Note: H1N1 9Admin Note: recieved elsewhere Medications amLODIPine 5 mg oral tablet 1 tablet, By Mouth, Daily, # 90 tablet, 1 Refills, Maintenance, 02/02/24 14:29:00 EDT, [facility], 167.6, cm, 02/02/24 13:57:00 EDT, Height, 97.8, kg, 04/29/22 14:30:00 EDT, Dry Weight Start Date: 02/02/24 Status: Ordered atorvastatin 40 mg oral tablet 1 tablet, By Mouth, Daily, # 90 tablet, 1 Refills, Maintenance, 02/02/24 14:29:00 EDT, [facility], 167.6, cm, 02/02/24 13:57:00 EDT, Height, 97.8, kg, 04/29/22 14:30:00 EDT, Dry Weight Start Date: 02/02/24 Status: Ordered calcium (as citrate)-vitamin D 315 mg-250 intl units oral tablet 1 tablet, By Mouth, 2 times a day, # 120 tablet, 3 Refills, Maintenance, 04/20/23 16:10:00 EDT, Tablet, [facility] # [facility], Partial fill upon patient request if the prescription is for a schedule IIopioid drug., 1 tablet By Mouth 2 times a day, 167.... Start Date: 04/20/23 Status: Ordered cholecalciferol 2000 intl units oral tablet See Instructions, 1 tablet By Mouth Daily -;2 weekend, 11 Refills, Maintenance Start Date: 11/11/09 Status: Ordered Eligen B12 1000 mcg oral tablet 1 tablet, By Mouth, Daily, on an empty stomach, # 30 tablet, 11 Refills, Maintenance, 03/15/17 21:10:26, Tablet Start Date: 03/15/17 Status: Ordered FLUoxetine 20 mg oral capsule 1, capsule, By Mouth, Daily, # 90 capsule, Refills 1, Tot. Refills 1, Maintenance, 02/02/24 14:30:00 EDT, Route to Pharmacy Electronically, [email or web address], 167.6, cm, 02/02/24 13:57:00EDT, Height, 97.8, kg, 04/29/22 14:30:00 EDT, Dry W... Start Date: 02/02/24 Status: Ordered fluticasone 50 mcg/inh nasal spray 2 sprays, Nasal, Daily, in each nostril use opposite hnad for each nostril, # 16 Gm, 1 Refills, Maintenance, 10/28/21 15:32:00 EST, [email or web address], 2 sprays Nasal Daily,Instr:in each nostril; use opposite hnad for each nostril, 167.6,... Start Date: 10/28/21 Status: Ordered Imodium A-D 2 mg oral tablet 2 mg, 1, tablet, By Mouth, Every 4 hours, PRN, # 60 tablet, Refills 0, Maintenance, for loose stool, 09/17/19 6:57:56 EST Start Date: 09/17/19 Status: Ordered LORazepam 0.5 mg oral tablet 1 tablet = 0.5 mg, By Mouth, Daily, PRN as needed for anxiety, use sparingly- not regularly, # 30 tablet, 0 Refills, Maintenance, 11/10/23 9:15:00 EST, Tablet, [facility], Partial fill upon patient request if the prescription is for... Start Date: 11/10/23 Status: Ordered omeprazole 20 mg oral enteric coated capsule 1 capsule, By Mouth, Daily, # 90 capsule, 3 Refills, 05/22/23 10:49:00 EDT, [facility], 167.6, cm, 03/23/23 10:29:00 EDT, Height, 97.8, kg, 04/29/22 14:30:00 EDT, Dry Weight Start Date: 05/22/23 Status: Ordered PredniSONE = 4 mg, By Mouth, Daily, 0 Refills, Maintenance, 02/02/24 14:02:00 EDT, Partial fill upon patient request if the prescription is for a schedule II opioid drug. Start Date: 02/02/24 Status: Ordered QUEtiapine 25 mg oral tablet 1, tablet, By Mouth, Daily at bedtime, REPLACES LORAZEPAM., # 90 tablet, Refills 1, Maintenance, 12/08/23 10:47:00 EST, Route to Pharmacy Electronically, [facility], 167.6, cm, 09/04/23 14:35:00 EST, Height, 97.8, kg, 04/29/22 14:30... Start Date: 12/08/23 Status: Ordered valsartan 160 mg oral tablet 1, tablet, By Mouth, Daily, # 90 tablet, Refills 1, Tot. Refills 1, Maintenance, 02/02/24 14:29:00 EDT, Route to Pharmacy Electronically, [facility], 167.6, cm, 02/02/24 13:57:00 EDT, Height, 97.8, kg, 04/29/22 14:30:00 EDT, Dry Weight Start Date: 02/02/24 Status: Ordered Problem List Condition Confirmation Course Effective Dates Status H ealth Status Informant Allergic rhinitis Confirmed Active Aortic heart murmur;nil echo 2017 Confirmed Active Back pain, chronic Confirmed Active Trochanteric bursitis Confirmed Active Chronic fatigue Confirmed Active Chronic renal disease, stage 3, moderately decreased glomerular filtration rate (GFR) between 30-59 mL/min/1.73 square meter Confirmed Active Cough variant asthma 2 Confirmed Active Diverticulosis, sigmoid Confirmed 09/12/08 Active Essential familial hyperlipidemia Confirmed Active GERD without esophagitis egd 2018 3, 4 Confirmed Active Generalized anxiety disorder with panic attacks Confirmed Active History of arthroplasty of both knees Confirmed 09/17/19 Active Hypertension Confirmed Active IBS (irritable bowel syndrome) 5 Confirmed Active Impaired fasting glucose 6 Confirmed Active LVH (left ventricular hypertrophy) Echo 2016 Confirmed Active Anemia, macrocytic Confirmed 07/29/22 Active Mitral insufficiency echo nov 2021 Confirmed 12/12/21 Active Osteoarthritis of left knee Confirmed Active Osteoporosis Confirmed 04/02/20 Active PFO (patent foramen ovale) possible ECHO 2021 Confirmed Active Chronic venous insufficiency Confirmed Active Pyuria Confirmed Active Depression, major, recurrent, mild 7, 8, 9, 10 Confirmed Active Secondary hyperparathyroidism/e ndocrinology Confirmed Active Severe obesity Confirmed Active Torus palatinus Confirmed Active Unspecified Vitamin D Deficiency 11 Confirmed Active 1referv echo 2Borderline mild obstruction pre-bronchodilator. [...] 9PHQ9 1=remission 10zung 38 today;normal in counselling 11rx Social History Social History Type Response Smoking Status Never smoker entered on: 10/09/13 Sex Patient Care team information Care Team Personnel Name: Satnam BUNDY, Juliet Snyder Position: [facility] Associate Professional Member Role: Primary Care Nurse Name: Jovana Pal NP Position: [facility] Associate Professional Member Role: PCP Address: Address: [address] [place] [id number]- Name: Michaela Castillo RN Position: S RN Member Role: Primary Care Nurse Name: Lary STRATTON, Leticia Barrientos Position: [facility] Onco RN Member Role: Primary Care Nurse Name: Stacy Garcia RN Position: [facility] AMB Nurse Member Role: Primary Care Nurse Name: María Elena Dixon RN Position: [facility] RN Member Role: Primary Care Nurse Care Team Related Persons Name: TORIN ISAURO Address: [address] [address] Name: AGNIESZKA MAURER Address: [address] [address]
--- OUTSIDE RECORDS SUMMARY | 2024-02-23 11:58 | XMS_ITS | Continuity of Care Document ---
Author Organization [facility]ae lt Address [address] [place] [address]- Care Team Providers Care Cocoa Roaster Name Role Phone Jovana Pal NP Primary Care Physician [facility] 09[facility]23 - 09/11/23 [facility] Adult [address] [place] [address]- Encounter Diagnosis Medicare annual wellness visit, subsequent(Discharge Diagnosis) - 09/04/23 Hypertension(Discharge Diagnosis) - 09/04/23 Chronic renal disease, stage 3, moderately decreased glomerular filtration rate (GFR) between 30-59mL/min/1.73 square meter(Discharge Diagnosis) - 09/04/23 Essential familial hyperlipidemia(Discharge Diagnosis) - 09/04/23 Secondary hyperparathyroidism/endocrinology(Discharge Diagnosis) - 09/04/23 Chronic venous insufficiency(Discharge Diagnosis) - 09/04/23 Generalized anxiety disorder with panic attacks(Discharge Diagnosis) - 09/04/23 GERD without esophagitis egd 2019(Discharge Diagnosis) - 09/04/23 Depression, major, recurrent, mild(Discharge Diagnosis) - 09/04/23 Severe obesity(Discharge Diagnosis) - 09/04/23 Attending Physician: Jovana Pal NP Allergies, Adverse Reactions, [...] pneumococcal 20-valent conjugate vaccine 5 02/13/23 Given [id number] 12y+ bivalent booster vax 6 08/12/22 Given [...] 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 Given 1Result Comment: [id number] 2Result Comment: [facility]-[id number] left upper deltoid 3Result Comment: [facility]: [id number] 4Result Comment: [07/11/2017] [facility]; [id number] HIGH DOSE 5Result Comment: [id number] 6Result Comment: [facility]-[id number] left lower deltoid 7Result Comment: [facility]: [id number] 8Admin Note: H1N1 9Admin Note: recieved elsewhere Medications amLODIPine 5 mg oral tablet 1 tablet, By Mouth, Daily, # 90 tablet, 1 Refills, Maintenance, 09/04/23 15:15:00 EST, [facility], 167.6, cm, 09/04/23 14:35:00 EST, Height, 97.8, kg, 04/29/22 14:30:00 EDT, Dry Weight Start Date: 09/04/23 Status: Ordered atorvastatin 40 mg oral tablet 1 tablet, By Mouth, Daily, # 90 tablet, 1 Refills, Maintenance, 09/04/23 15:15:00 EST, [facility], 167.6, cm, 09/04/23 14:35:00 EST, Height, 97.8, kg, 04/29/22 14:30:00 EDT, Dry Weight Start Date: 09/04/23 Status: Ordered calcium (as citrate)-vitamin D 315 [...] See Instructions, 1 tablet By Mouth Daily m-f;2 weekend, 11 Refills, Maintenance Start Date: 11/11/09 Status: Ordered Dicyclomine = 20 mg, 0 Refills, Maintenance, 04/29/22 14:40:00 EDT, Partial fill upon patient request if the prescription is for a schedule II opioid drug. Start Date: 04/29/22 Status: Ordered Eligen B12 1000 mcg oral tablet 1 tablet, By Mouth, Daily, on an empty stomach, # 30 tablet, 11 Refills, Maintenance, 03/15/17 21:10:26, Tablet Start Date: 03/15/17 Status: Ordered FLUoxetine 20 mg oral capsule 1, capsule, By Mouth, Daily, # 90 capsule, Refills 1, Maintenance, 05/17/23 13:17:00 EDT, Route to Pharmacy Electronically, [facility], 167.6, cm, 03/23/23 10:29:00 EDT, Height, 97.8, kg, 04/29/22 14:30:00 EDT, Dry Weight Start Date: 05/17/23 Status: Ordered fluticasone 50 mcg/inh nasal spray 2 sprays, Nasal, Daily, in each nostril use opposite hnad for each nostril, # 16 Gm, 1 Refills, Maintenance, 10/28/21 15:32:00 EST, [facility], 2 sprays Nasal Daily,Instr:in each [...] regularly, # 30 tablet, 0 Refills, Maintenance, 07/18/23 9:56:00 EDT, Tablet, [facility], Partial fill upon patient request if the prescription is for a schedul... Start Date: 07/18/23 Status: Ordered omeprazole 20 mg oral enteric coated capsule 1 capsule, By Mouth, Daily, # 90 capsule, 3 Refills, 05/22/23 10:49:00 EDT, [facility], 167.6, cm, 03/23/23 10:29:00 EDT, Height, 97.8, kg, 04/29/22 14:30:00 EDT, Dry Weight Start Date: 05/22/23 Status: Ordered QUEtiapine 25 mg oral tablet 25 mg, 1, tablet, By Mouth, Daily at bedtime, for 90 days, replaces lorazepam, # 90 tablet, Refills1, Tot. Refills 1, Acute 01/06/24 21:09:00 EDT, 07/10/23 21:09:00 EDT, Route to Pharmacy Electronically, [facility], 167.6, cm, 03/03... Start Date: 07/10/23 Stop Date: 01/06/24 Status: Ordered Reclast 5 mg/100 mL intravenous solution = 5 mg, IV Infusion, Once, # 1 each, 0 Refills, Maintenance, 01/25/21 9:53:00 EDT, Partial fill upon patient request if the prescription is for a schedule II opioid drug. Start Date: 01/25/21 Status: Ordered valsartan 160 mg oral tablet 1, tablet, By Mouth, Daily, # 90 tablet, Refills 1, Maintenance, 08/29/23 16:39:00 EST, Route to Pharmacy Electronically, [facility], 167.6, cm, 07/18/23 9:30:00 EDT, Height, 97.8,kg, 04/29/22 14:30:00 EDT, Dry Weight Start Date: 08/29/23 Status: Ordered Problem List Condition Confirmation Course Effective Dates Status H ealth Status Informant Allergic rhinitis Confirmed Active Aortic heart murmur;nil echo 2016 1 Confirmed Active Back pain, chronic Confirmed Active Chronic fatigue Confirmed Active Chronic [...] obesity Confirmed Active Torus palatinus Confirmed Active Trochanteric bursitis of left hip Confirmed Active Unspecified Vitamin D Deficiency 11 [...] 1=remission 10zung 38 today;normal in counselling 11rx Diagnosis Diagnosis Type Effective Dates Health Status Clinical Service Informant Medicare annual wellness visit, subsequent Discharge Diagnosis 09/04/23 Chronic renal disease, stage 3, moderately decreased glomerular filtration rate (GFR) between 30-59 mL/min/1.73 square meter Discharge Diagnosis 09/04/23 Chronic venous insufficiency Discharge Diagnosis 09/04/23 Depression, major, recurrent, mild Discharge Diagnosis 09/04/23 Essential familial hyperlipidemia Discharge Diagnosis 09/04/23 Hypertension Discharge Diagnosis 09/04/23 Severe obesity Discharge Diagnosis 09/04/23 Secondary hyperparathyroidism/ endocrinology Discharge Diagnosis 09/04/23 Generalized anxiety disorder with panic attacks Discharge Diagnosis 09/04/23 GERD without esophagitis egd 2019 Discharge Diagnosis 09/04/23 Vital Signs Most recent to oldest [Reference Range]: 1 Height 167.6 cm (09/04/23 2:35 PM) Weight 113.5 kg (09/04/23 2:35 PM) Oxygen Saturation [94-100 %] 100 % (09/04/23 2:35 PM) Pulse Rate [55-90 bpm] 82 bpm (09/04/23 2:35 PM) Body Mass Index [18.5-24.99 kg/m2] 40.41 kg/m2 *>HHI* (09/04/23 2:35 PM) Blood Pressure [90-138/55-84 mm Hg] 115/ 70mm Hg (09/04/23 2:35 PM) Weight Obtained Via Standing scale (09/04/23 2:35 PM) Social History Social History Type Response Smoking Status Never smoker entered on: 10/09/13 Sex Patient Care team information Care Team Personnel Name: Juliet Hay NP Position: [facility] Associate Professional Member Role: Primary Care Nurse Name: Jovana Pal NP Position: [facility] Associate Professional Member Role: PCP Address: Address: [address] [place] [id number]- [place] Name: Michaela Castillo RN Position: [facility] RN Member Role: Primary Care Nurse Name: Leticia Barth RN Position: [facility] Onco RN Member Role: Primary Care Nurse Name: Stacy Garcia RN Position: [facility] SN RN Member Role: Primary Care Nurse Name: María Elena Dixon RN Position: [facility] RN Member Role: Primary Care Nurse Care Team Related Persons Name: ISAURO HARKINS Address: [address] [address] Name: AGNIESZKA MAURER Address: [address] [address]
[2024-02-23 11:59] LABS: MANUAL DIFF FLAG NO
--- OUTSIDE RECORDS SUMMARY | 2024-02-23 12:00 | XMS_ITS | Continuity of Care Document ---
Author Organization [facility] Sae lt Address [address] [place] [address]- Care Team Providers Care Solar Project Manager Name Role Phone Kae DEPOSITION OPERATOR, Jovana Ghosh Primary Care Physician Encounter [facility] Date(s): 08/18/22 - 09/17/22 [facility] Adult [address] [place] [address]- Allergies, Adverse Reactions, Alerts Substance Reaction Severity Status ciprofloxacin diarrhea Active codeine nausea Active Spiriva 1 Active baclofen SEVERE GI UPSET Active Macrobid GI upset Active 1urinary Immunizations Given and Recorded Vaccine Date Status Refusal Reason [id number] 12y+ bivalent booster vax 1 08/12/22 Given influenza virus vaccine, inactivated 2 08/12/22 Gi [...] influenza virus vaccine, inactivated 08/17/10 Give n SARS-CoV-2 (COVID-19) mRNA-1273 vaccine 10/19/21 R ecorded pneumococcal 23-valent vaccine 5 07/26/21 Given SARS-CoV-2 (COVID-19) mRNA BNT-162b2 vac 01/21/21 Recorded SARS-CoV-2 (COVID-19) mRNA BNT-162b2 vac 12/30/20 Recorded zoster vaccine, inactivated 12/23/20 Recorded zoster vaccine, inactivated 05/21/20 Recorded tetanus-diphtheria toxoids (Td) 01/10/18 Given tetanus-diphtheria toxoids (Td) 12/01/95 Given pneumococcal 13-valent vaccine 10/22/14 Given FluLaval (oldterm) 06/08/12 Given influ virus vac, H1N1, inactive(oldterm) 06/15/11 Given influ virus vac, H1N1, inactive(oldterm) 6 09/22/09 Given Zostavax (oldterm) 05/13/09 Given Influenza Inactive (IM) (oldterm) 7 08/05/08 Given Tet/Diphth/Acel, Pertussis (oldterm) 12/05/07 Give n Pneumococcal 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 Given 1Result Comment: [facility]-[id number] left lower deltoid 2Result Comment: [facility]-[id number] left upper deltoid 3Result Comment: [facility]: [id number] 4Result Comment: [07/11/2017] [facility]; [id number] HIGH DOSE 5Result Comment: [facility]: [id number] 6Admin Note: H1N1 7Admin Note: recieved elsewhere Medications amLODIPine 5 mg oral tablet 1 tablet, By Mouth, Daily, # 90 tablet, 3 Refills, Maintenance, 07/27/22 11:13:00 EDT, [facility], 167.6, cm, 05/10/22 16:16:00 EDT, Height, 97.8, kg, 04/29/22 14:30:00 EDT, Dry Weight Start Date: 07/27/22 Status: Ordered atorvastatin 40 mg oral tablet 1 tablet, By Mouth, Daily, # 90 tablet, 1 Refills, Maintenance, 08/26/22 9:23:00 EST, [facility], 167.6, cm, 08/12/22 11:12:00 EST, Height, 97.8, kg, 04/29/22 14:30:00 EDT, Dry Weight Start Date: 08/26/22 Status: Ordered betamethasone topical dipropionate 0.05% cream 1 application, Topically, 2 times a day, # 15 Gm, 0 Refills, Maintenance, 05/10/22 16:48:00 EDT, Cream, [facility], Partial fill upon patient request if the prescription is for a schedule IIopioid drug., 1 application Topically 2 times a day... Start Date: 05/10/22 Status: Ordered buPROPion 150 mg/24 hours (XL) oral tablet, extended release 1 tablet = 150 mg, By Mouth, Every 24 hours, # 90 tablet, 3 Refills, Maintenance, 12/07/21 10:49:00EST, [facility], Partial fill upon patient request if the prescription is for a schedule II opioid drug., 1 tablet By Mouth Every 24... Start Date: 12/07/21 Status: Ordered Caltrate 600 + D oral tablet 1 tablet, By Mouth, 2 times a day, # 60 tablet, 0 Refills, Maintenance, 05/10/22 16:19:00 EDT, Tablet, Partial fill upon patient request if the prescription is for a schedule II opioid drug. Start Date: 05/10/22 Status: Ordered cholecalciferol 2000 intl units oral [...] Tablet Start Date: 03/15/17 Status: Ordered FLUoxetine 10 mg oral capsule 10 mg, 1, capsule, By Mouth, Daily, take in addition to 20mg dose for a total of 30mg per day, # 90capsule, Refills 0, Tot. Refills 0, Maintenance, 03/25/22 8:06:00 EDT, Route to Pharmacy Electronically, [facility], 167.6, cm, 03/25/22 7:30:... Start Date: 03/25/22 Status: Ordered FLUoxetine 20 mg oral capsule 20 mg, 1, capsule, By Mouth, Daily, # 90 capsule, Refills 3, Tot. Refills 3, Maintenance, 08/18/22 8:26:00 EST, Route to Pharmacy Electronically, [facility], Partial fill upon patient request if the prescription is for a schedule II opioid drFatuma. Start Date: 08/18/22 Status: Ordered fluticasone 50 mcg/inh nasal spray [...] mg, By Mouth, Daily at bedtime, # 30 tablet, 1 Refills, Maintenance, 08/12/22 11:44:00 EST, Tablet, [facility], Partial fill upon patient request if the prescription is for a schedule II opioid drug., 167.6, cm, 08/12/22 11:12:... Start Date: 08/12/22 Status: Ordered omeprazole 20 mg oral enteric coated capsule 1 capsule, By Mouth, Daily, # 90 capsule, 3 Refills, [facility], 167.6, cm, 11/23/21 16:35:00 EST, Height, 107.9, kg, 02/24/21 13:39:00 EDT, Dry Weight Start Date: 01/21/22 Status: Ordered Reclast 5 mg/100 mL intravenous [...] 14:49:18, Compound Start Date: 11/13/13 Status: Ordered Trelegy Ellipta 200 mcg-62.5 mcg-25 mcg/inh inhalation powder 1 puffs, Inhalation, Daily, at the same time every day 14 doses, # 1 each, 0 Refills, Maintenance, 05/10/22 16:50:00 EDT, Powder, Partial fill upon patient request if the prescription is for a schedule II opioid drug. Start Date: 05/10/22 Status: Ordered valsartan 160 mg oral tablet 160 mg, 1, tablet, By Mouth, Daily, # 90 tablet, Refills 3, Tot. Refills 3, Maintenance, 09/15/22 14:31:00 EST, Route to Pharmacy Electronically, [facility], Partial fill upon patient request if the prescription is for a schedule II... Start Date: 09/15/22 Status: Ordered Problem List Condition Confirmation Course Effective Dates Status H ealth Status Informant Allergic rhinitis Confirmed Active Anxiety Confirmed Active Aortic heart murmur;nil echo 2016 1 Confirmed Active Back pain, chronic Confirmed Active Chronic fatigue Confirmed Active Chronic renal disease, stage 3, moderately decreased glomerular filtration rate (GFR) between 30-59 mL/min/1.73 square meter Confirmed Active Cough variant asthma 2 Confirmed Active Dysplastic toenail rt bidg 2019 [facility] pod[facility] Confirmed Active Diverticulosis, sigmoid Confirmed 09/12/08 Active Encounter for monitoring long-term proton pump inhibitor therapy Confirmed Active Essential familial hyperlipidemia Confirmed Active h/o compression Fracture spine Confirmed 06/20/20 Active GERD without esophagitis egd 2018 3, 4 Confirmed Active History of arthroplasty of both knees Confirmed 09/17/19 Active Hypertension Confirmed Active IBS (irritable bowel syndrome) 5 Confirmed Active Impaired fasting glucose 6 Confirmed Active LVH (left ventricular hypertrophy) Echo 2016 Confirmed Active Anemia, macrocytic Confirmed 07/29/22 Active Depression, major 7, 8, 9, 10 Confirmed Active Mitral insufficiency echo nov 2021 Confirmed 12/12/21 Active Obese class II Confirmed Active Obesity (BMI 30-39.9) Confirmed Active Osteoporosis Confirmed 04/02/20 Active Female pelvic pain Confirmed 08/04/21 Active PFO (patent foramen ovale) possible ECHO 2021 Confirmed Active Chronic venous insufficiency Confirmed Active PND (post-nasal drip) globus Confirmed Active Pyuria Confirmed Active Secondary hyperparathyroidism/e ndocrinology Confirmed Active Torus palatinus Confirmed Active Trochanteric [...] Care team information Care Team Personnel Name: Leticia Alcantara RN Position: [facility] Onco RN Member Role: Primary Care Nurse Name: Juliet Hay NP Position: [facility] PCO Associate Professional Member Role: Primary Care Nurse Name: Jovana Pal NP Position: [facility] PCO Associate Professional Member Role: PCP Address: Address: [address] [place] [id number]- Name: Michaela Castillo RN Position: S RN Member Role: Primary Care Nurse Name: Stacy Garcia RN Position: S RN Member Role: Primary Care Nurse Name: María Elena Dixon RN Position: S RN Member Role: Primary Care Nurse Care Team Related Persons Name: ISAURO HARKINS Address: [address] [address] Name: AGNIESZKA MAURER Address: [address] [address]
[2024-02-23 12:01] LABS: Basophils Percent Auto 0.6 % (0-2); Eosinophils Absolute Auto 0.1 X10*3/uL (0.0-0.4); Eosinophils Percent Auto 1.9 % (0-4); Hematocrit 31.6 % (37.0-47.0); Hemoglobin 11.1 g/dl (12.0-16.0); Imm Gran Abs Auto 0.01 X10*3/uL (0.00-0.03); Imm Gran Pct Auto 0.2 % (0.0-0.4); Lymphocytes Absolute Auto 0.9 X10*3/uL (1.2-4.9); Lymphocytes Percent Auto 13.2 % (20-40); Mean Corpuscular HGB Conc 35.1 g/dl (31.0-35.0); Mean Corpuscular Hemoglobin 34.3 pg (27.0-33.0); Mean Corpuscular Volume 97.5 fL (80.0-98.0); Mean Platelet Volume 9.4 fL (9.4-12.3); Monocytes Absolute Auto 0.5 X10*3/uL (0.1-1.2); Monocytes Percent Auto 8.1 % (2-11); Neutrophils Absolute Auto 4.9 x10*3/uL (2.0-8.3); Platelet Count 193 X10*3/uL (160-400); Red Blood Count 3.24 X10*6/uL (4.20-5.50); White Blood Count 6.5 X10*3/uL (4.8-10.8)
--- OUTSIDE RECORDS SUMMARY | 2024-02-23 12:01 | XMS_ITS | Continuity of Care Document ---
Author Organization [facility] Address [address] [place] [address]- Care Team Providers Care Deputy Bailiff Name Role Phone Edmond BRANDT, Wesley Kaur Primary Care Physician Encounter [facility] Date(s): 02/08/22 - 03/10/22 [facility] [place] [address] [place] [address]- Allergies, Adverse Reactions, Alerts Substance Reaction Severity Status ciprofloxacin diarrhea Active codeine nausea Active baclofen SEVERE GI UPSET Active Macrobid GI upset Active Spiriva 1 Active 1urinary Immunizations Given and Recorded Vaccine Date Status Refusal Reason SARS-CoV-2 (COVID-19) mRNA-1273 vaccine 10/19/21 R ecorded pneumococcal 23-valent vaccine 1 07/26/21 Given influenza virus vaccine, inactivated 2 07/26/21 Gi marlene influenza virus vaccine, inactivated 08/19/20 Give n influenza virus vaccine, inactivated 08/06/19 Give n influenza virus vaccine, inactivated 08/03/18 Give n influenza virus vaccine, inactivated 3 07/11/17 Gi marlene influenza virus vaccine, inactivated 07/22/16 Give n influenza virus vaccine, inactivated 08/21/15 Give n influenza virus vaccine, inactivated 08/08/14 Give n influenza virus vaccine, inactivated 06/10/13 Give n influenza virus vaccine, inactivated 08/17/10 Give n SARS-CoV-2 (COVID-19) mRNA BNT-162b2 vac 01/21/21 Recorded SARS-CoV-2 (COVID-19) mRNA BNT-162b2 vac 12/30/20 Recorded zoster vaccine, inactivated 09/23/20 Recorded zoster vaccine, inactivated 05/21/20 Recorded tetanus-diphtheria toxoids (Td) 01/10/18 Given tetanus-diphtheria toxoids (Td) 12/01/95 Given pneumococcal 13-valent vaccine 10/22/14 Given FluLaval (oldterm) 06/08/12 Given influ virus vac, H1N1, inactive(oldterm) 06/15/11 Given influ virus vac, H1N1, inactive(oldterm) 4 09/22/09 Given Zostavax (oldterm) 05/13/09 Given Influenza Inactive (IM) (oldterm) 5 08/05/08 Given Tet/Diphth/Acel, Pertussis (oldterm) 12/05/07 Give n Pneumococcal 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 Given 1Result Comment: [facility]: [id number] 2Result Comment: [facility]: [id number] 3Result Comment: [07/11/2017] [facility]; [id number] HIGH DOSE 4Admin Note: H1N1 5Admin Note: recieved elsewhere Medications amLODIPine 5 mg oral tablet 1 tablet, By Mouth, Daily, # 90 tablet, 1 Refills, [facility], 167.6, cm, 11/23/21 16:35:00 EST, Height, 107.9, kg, 02/24/21 13:39:00 EDT, Dry Weight Start Date: 11/29/21 Status: Ordered atorvastatin 40 mg oral tablet 1 tablet, By Mouth, Daily, # 90 tablet, 1 Refills, [facility], 167.6, cm, 02/04/22 10:24:00 EDT, Height, 107.9, kg, 02/24/21 13:39:00 EDT, Dry Weight Start Date: 02/28/22 Status: Ordered buPROPion 150 mg/24 hours (XL) oral tablet, extended release 1 tablet = 150 mg, By Mouth, Every 24 hours, # 90 tablet, 3 Refills, Maintenance, 12/07/21 10:49:00EST, [facility], Partial fill upon patient request if the prescription is for a schedule II opioid drug., 1 tablet By Mouth Every 24... Start Date: 12/07/21 Status: Ordered cholecalciferol 2000 intl units oral tablet See Instructions, 1 tablet By Mouth Daily m-;2 weekend, 11 Refills, Maintenance Start Date: 11/11/09 [...] 14:32:00 EDT, Route to Pharmacy Electronically, [facility] [...] mg, By Mouth, Daily at bedtime, # 12 tablet, 0 Refills, Maintenance, 01/24/22 6:12:00 EDT, [facility], 167.6, cm, 11/23/21 16:35:00 EST, Height, 107.9, kg, 02/24/21 13:39:00 EDT, Dry Weight Start Date: 01/24/22 Status: Ordered LORazepam 0.5 mg oral tablet 1 tablet = 0.5 mg, By Mouth, Daily at bedtime, # 90 tablet, 0 Refills, Maintenance, 02/04/22 11:10:00 EDT, Tablet, [facility], Partial fill upon patient request if the prescriptionis for a schedule II opioid drug., 167.6, cm, 02/04... Start Date: 02/04/22 Status: Ordered omeprazole 20 mg oral enteric [...] 14:49:18, Compound Start Date: 11/13/13 Status: Ordered valsartan 160 mg oral tablet 160 mg, 1, tablet, By Mouth, Daily, # 90 tablet, Refills 3, Tot. Refills 3, Maintenance, 08/27/21 12:40:00 EST, Route to Pharmacy Electronically, [facility], Partial fill upon patient request if the prescription is for a schedule II... Start Date: 08/27/21 Status: Ordered Voltaren 1% topical gel = [...] Active Anxiety(Confirmed) Active Aortic heart murmur;nil echo 2017(Confirmed) 1 Active Back pain, chronic(Confirmed) Active Chronic fatigue(Confirmed) Active Chronic renal disease, stage 3, moderately decreased glomerular filtration rate (GFR) between 30-59 mL/min/1.73 square meter(Confirmed) Active Cough variant asthma(Confirmed) 2 Active Dysplastic toenail rt bidg 2 020 [facility] podiatry(Confirmed) Active Diverticulosis, sigmoid(Confirmed) 09/12/08 Active Encounter for monitoring barbra g-term proton pump inhibitor therapy(Confirmed) Active Essential familial hyperlipidemia(Confirmed) Active Abdominal cramping(Confirmed) Active h/o compression Fracture spine(Confirmed) 06/20/20 Active GERD without esophagitis egd 2018(Confirmed) 3, 4 Active History of arthroplasty of l eft knee(Confirmed) 09/17/19 Active Hypertension(Confirmed) Active IBS (irritable bowel syndrome)(Confirmed) 5 Active Impaired fasting glucose(Confirmed) 6 Active LVH (left ventricular hypert rophy) Echo 2016(Confirmed) Active Depression, major(Confirmed) 7, 8, 9, 10 Active Epicondylitis elbow, medial( Confirmed) 11 Active Mitral insufficiency echo ma r 2021(Confirmed) 12/12/21 Active Obese class II(Confirmed) Active Obesity (BMI 30-39.9)(Confirmed) Active Osteoporosis(Confirmed) 04/02/20 Active Female pelvic pain(Confirmed) 08/04/21 Active PFO (patent foramen ovale) p ossible ECHO 2021(Confirmed) Active Chronic venous insufficiency(Confirmed) Active PND (post-nasal drip) globus(Confirmed) Active Pyuria(Confirmed) Active Secondary hyperparathyroidism/endocrinology(Conf irmed) Active Trochanteric bursitis of lef t hip(Confirmed) [...]
--- OUTSIDE RECORDS SUMMARY | 2024-02-23 12:04 | XMS_ITS | Continuity of Care Document ---
Author Organization [facility] Address [address] [place] [address]- Care Team Providers Care Gold Reclaimer Name Role Phone Edmond BRANDT, Wesley Kaur Primary Care Physician Encounter [facility] Date(s): 09/14/21 - 10/14/21 [facility] Adult [address] [place] [address]- Allergies, Adverse Reactions, Alerts Substance Reaction Severity Status ciprofloxacin diarrhea Active codeine nausea Active baclofen SEVERE GI UPSET Active Macrobid GI upset Active Spiriva 1 Active 1urinary Immunizations Given and Recorded Vaccine Date Status Refusal Reason pneumococcal 23-valent vaccine 1 07/26/21 Given influenza [...] 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 Given 1Result Comment: [facility]: [id number] 2Result Comment: [facility]: [id number] 3Result Comment: [07/11/2017] [facility]; 22489-946-10 HIGH DOSE 4Admin Note: H1N1 5Admin Note: recieved elsewhere Medications amLODIPine 5 mg oral tablet 1 tablet = 5 mg, By Mouth, Daily, # 90 tablet, 1 Refills, Maintenance, 06/02/21 17:26:00 EDT, [facility], 167.6, cm, 02/24/21 14:50:00 EDT, Height, 107.9, kg, 02/24/21 13:39:00 EDT, Dry Weight Start Date: 06/02/21 Status: Ordered atorvastatin 40 mg oral tablet 1 tablet, By Mouth, Daily, # 90 tablet, 1 Refills, [facility], 167.6, cm, 08/19/21 11:48:00 EST, Height, 107.9, kg, 02/24/21 13:39:00 EDT, Dry Weight Start Date: 08/31/21 Status: Ordered cholecalciferol 2000 intl units oral tablet See Instructions, 1 tablet By Mouth Daily m-f;2 weekend, 11 Refills, Maintenance Start Date: 11/11/09 Status: Ordered Eligen B12 1000 mcg oral tablet 1 tablet, By Mouth, Daily, on an empty stomach, # 30 tablet, 11 Refills, Maintenance, 03/15/17 21:10:26, Tablet Start Date: 03/15/17 Status: Ordered FLUoxetine 20 mg oral capsule 40 mg, 2, capsule, By Mouth, Daily, # 90 capsule, Refills 3, Tot. Refills 3, Maintenance, 02/22/21 14:32:00 EDT, Route to Pharmacy Electronically, [facility], Partial fill upon patient request if the prescription is for a schedule I... Start Date: 02/22/21 Status: Ordered fluticasone 50 mcg/inh nasal spray 2 sprays, Nasal, Daily, in each nostril use opposite hnad for each nostril, # 16 Gm, 1 Refills, Maintenance, 01/09/21 10:28:00 EDT, [facility], 2 sprays Nasal [...] bedtime, # 12 tablet, 0 Refills, Maintenance, 09/20/21 11:54:00 EST, [email or web address], 167.6, cm, 08/19/21 11:48:00 EST, Height, 107.9, kg, 02/24/21 13:39:00 EDT, Dry Weight Start Date: 09/20/21 Status: Ordered omeprazole 20 mg oral enteric coated capsule 1 capsule, By Mouth, Daily, # 90 capsule, 0 Refills, [facility], 167.6, cm, 08/19/21 11:48:00 EST, Height, 107.9, kg, 02/24/21 13:39:00 EDT, Dry Weight Start Date: 08/23/21 Status: Ordered Reclast 5 mg/100 mL intravenous [...] Essential familial hyperlipidemia(Confirmed) Active Abdominal cramping(Confirmed) Active L4 vertebral fracture fall/trauma(Confirmed) 06/20/20 Active GERD without esophagitis egd 2018(Confirmed) 3, 4 Active History of arthroplasty of l eft knee(Confirmed) 09/17/19 Active Hyperparathyroidism ndocrinology(Confirmed) Active Hypertension(Confirmed) Active Uncontrolled hypertension(Confirmed) Active IBS (irritable bowel syndrome)(Confirmed) 5 Active Impaired fasting glucose(Confirmed) 6 Active LVH (left ventricular hypert rophy) Echo 2016(Confirmed) Active Depression, major(Confirmed) 7, 8, 9, 10 Active Epicondylitis elbow, medial( Confirmed) 11 Active Obese class II(Confirmed) Active Obesity (BMI 30-39.9)(Confirmed) Active Osteoporosis(Confirmed) 04/02/20 Active Female pelvic pain(Confirmed) 08/04/21 Active Chronic venous insufficiency(Confirmed) Active PND (post-nasal [...]
--- OUTSIDE RECORDS SUMMARY | 2024-02-23 12:04 | XMS_ITS | Continuity of Care Document ---
Author Organization [facility] Address [address] [place] [address]- Care Team Providers Care Tennis Racket Repairer Name Role Phone Wesley Pruitt MD Primary Care Physician [phone] Encounter [facility] Date(s): 04/06/20 - 04/13/20 [facility] [place] Adult [address] [place] [address]- [place] Encounter Diagnosis Osteoporosis(Discharge Diagnosis) - 04/06/20 Attending Physician: Wesley Pruitt MD Allergies, Adverse Reactions, Alerts Substance Reaction Severity Status ciprofloxacin diarrhea Active codeine nausea Active baclofen SEVERE GI UPSET Active Macrobid GI upset Active Spiriva 1 Active 1urinary Immunizations Given and Recorded Vaccine Date Status Refusal Reason influenza virus vaccine, inactivated 08/06/19 Give n influenza virus vaccine, inactivated 08/03/18 Give n influenza virus vaccine, inactivated 1 07/11/17 Gi marlene influenza virus vaccine, inactivated 07/22/16 Give n influenza virus vaccine, inactivated 08/21/15 Give n influenza virus vaccine, inactivated 08/08/14 Give n influenza virus vaccine, inactivated 06/10/13 Give n influenza virus vaccine, inactivated 08/17/10 Give n tetanus-diphtheria toxoids (Td) 01/10/18 Given tetanus-diphtheria toxoids (Td) 12/01/95 Given pneumococcal 13-valent vaccine 10/22/14 Given FluLaval (oldterm) 06/08/12 Given influ virus vac, H1N1, inactive(oldterm) 06/15/11 Given influ virus vac, H1N1, inactive(oldterm) 2 09/22/09 Given Zostavax (oldterm) 05/13/09 Given Influenza Inactive (IM) (oldterm) 3 08/05/08 Given Tet/Diphth/Acel, Pertussis (oldterm) 12/05/07 Give n Pneumococcal 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 Given 1Result Comment: [07/11/2017] [facility]; 41059-719-91 HIGH DOSE 2Admin Note: H1N1 3Admin Note: recieved elsewhere Medications acetaminophen 325 mg oral tablet 650 mg, By Mouth, Every 6 hours, Refills 0, Maintenance, 09/19/19 11:55:00 EST Start Date: 09/19/19 Status: Ordered atorvastatin 40 mg oral tablet 1 tablet = 40 mg, By Mouth, Daily, # 90 tablet, 1 Refills, Soft Stop, 03/09/20 11:18:00 EDT, [facility], 167.6, cm, 09/19/19 7:55:00 EST, Height, 101.2, kg, 09/17/19 10:13:00 EST, Dry Weight Start Date: 03/09/20 Status: Ordered cholecalciferol 2000 intl units oral [...] capsule, Refills 1, Tot. Refills 1, Maintenance, 11/03/19 19:07:00 EST, Route to Pharmacy Electronically, [facility], 167.6, cm, 09/19/19 7:55:00 EST, Height, 101.2, kg, 09/17/19 10:13:00 EST... Start Date: 11/03/19 Status: Ordered fluticasone 50 mcg/inh nasal spray 2 sprays, Nasal, Daily, in each nostril use opposite hnad for each nostril, # 16 Gm, 3 Refills, Maintenance, 01/10/20 8:38:00 EDT, [facility], 2 sprays Nasal Daily,Instr:in each nostril; use opposite hnad for each nostril, 167.6, c... Start Date: 01/10/20 Status: Ordered Imodium A-D 2 mg oral tablet 2 mg, 1, tablet, By Mouth, Every 4 hours, PRN, # 60 tablet, Refills 0, Maintenance, for loose stool, 09/17/19 6:57:56 EST Start Date: 09/17/19 Status: Ordered LORazepam 0.5 mg oral tablet 1 tablet = 0.5 mg, By Mouth, Daily at bedtime, # 90 tablet, 1 Refills, Maintenance, 03/26/20 15:58:00 EDT, [facility], 167.6, cm, 03/10/20 15:20:00 EDT, Height, 101.2, kg, 09/17/1910:13:00 EST, Dry Weight Start Date: 03/26/20 Status: Ordered omeprazole 20 mg oral enteric coated capsule 1 capsule = 20 mg, By Mouth, Daily, # 90 capsule, 3 Refills, Maintenance, 08/15/19 10:35:59 EST, ECCapsule, [facility] Start Date: 08/15/19 Stop Date: 08/09/20 Status: Ordered Singulair 10 mg oral tablet 10 mg, 1, tablet, By Mouth, Daily in PM, # 90 tablet, Refills 1, Tot. Refills 1, Maintenance, 12/06/19 10:36:00 EST, Route to Pharmacy Electronically, [facility], 167.6, cm, 09/19/19 7:55:00 EST, Height, 101.2, kg, 09/17/19 10:13:00... Start Date: 12/06/19 Status: Ordered spacer for MDI spacer for MDI, See Instructions, # 1 box, Refills 0, Tot. Refills 0, Maintenance, use with MDI, 11/13/13 14:49:18, Compound Start Date: 11/13/13 Status: Ordered Problem List Condition Effective Dates [...] inhibitor therapy(Confirmed) Active Essential familial hyperlipidemia(Confirmed) Active GERD without esophagitis egd 2018(Confirmed) 3, 4 Active History of arthroplasty of l eft knee(Confirmed) 09/17/19 Active IBS (irritable bowel syndrome)(Confirmed) 5 Active Impaired fasting glucose(Confirmed) 6 Active LVH (left ventricular hypert rophy) Echo 2016(Confirmed) Active Depression, major(Confirmed) 7, 8, 9, 10 Active Epicondylitis elbow, medial( Confirmed) 11 Active Obesity (BMI 30-39.9)(Confirmed) Active Osteoporosis ?hyperprarthyoid(Confirmed) 04/02/20 Active Chronic venous insufficiency(Confirmed) Active PND [...] 10zung 38 today;normal in counselling 11exercises 12rx Diagnosis Diagnosis Type Effective Dates Health Status Cl inical Service Informant Osteoporosis Discharge Diagnosis 04/06/20 Vital Signs Most recent to oldest [Reference Range]: 1 Height 167.6 cm (04/06/20 7:12 AM) Social History Social History Type Response Smoking Status Never smoker entered on: 10/09/13 Sex
--- OUTSIDE RECORDS SUMMARY | 2024-02-23 12:07 | XMS_ITS | Continuity of Care Document ---
Author Organization [facility] Sae lt Address [address] [place] [address]- Care Team Providers Care Packaging Sales Representative Name Role Phone Edmond BRANDT, Wesley Kaur Primary Care Physician [phone] Encounter [facility] Date(s): 11/25/21 - 12/25/21 [facility] Adult [address] [place] [address]- Allergies, Adverse Reactions, Alerts Substance Reaction Severity [...] 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 Given 1Result Comment: [facility]: [id number] 2Result Comment: [facility]: [id number] 3Result Comment: [07/11/2017] [facility]; 41304-128-35 HIGH DOSE 4Admin Note: H1N1 5Admin Note: [...] Dry Weight Start Date: 08/31/21 Status: Ordered buPROPion 150 mg/24 hours (XL) [...] tablet, 0 Refills, Maintenance, 09/20/21 11:54:00 EST, [facility], 167.6, cm, 08/19/21 11:48:00 [...]
--- OUTSIDE RECORDS SUMMARY | 2024-02-23 12:09 | XMS_ITS | Continuity of Care Document ---
Author Organization [facility] Sae lt Address [address] [place] [address]- Care Team Providers Care Locksmith Helper Name Role Phone Wesley Pruitt MD Primary Care Physician [phone] Encounter [facility] Date(s): 02/04/22 - 02/11/22 [facility] Adult [address] [place] [address]- Encounter Diagnosis Major depression in full remission(Discharge Diagnosis) - 02/04/22 Attending Physician: Wesely Pruitt MD Allergies, Adverse Reactions, Alerts Substance [...] 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 Given 1Result Comment: [facility]: [id number] 2Result Comment: [facility]: [id number] 3Result Comment: [07/11/2017] [facility]; 38276-150-21 HIGH DOSE 4Admin Note: H1N1 5Admin Note: [...] Effective Dates Health Status Clinical Service Informant Major depression in full remission Discharge Diagnosis 02/04/22 Vital Signs Most recent to oldest [Reference Range]: 1 Height 167.6 cm (02/04/22 10:24 AM) Social History Social History Type Response Smoking Status Never smoker entered on: 10/09/13 Sex
--- OUTSIDE RECORDS SUMMARY | 2024-02-23 12:10 | XMS_ITS | Continuity of Care Document ---
Author Organization [facility] Sae lt Address [address] [place] [address]- Care Team Providers Care Machine Welt Butter Name Role Phone Edmond BRANDT, Wesley Kaur Primary Care Physician [facility] Date(s): 11/24/21 - 12/24/21 [facility] Adult [address] [place] [address]- Allergies, Adverse Reactions, Alerts Substance Reaction Severity [...] 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 Given 1Result Comment: [facility]: [id number] 2Result Comment: [facility]: [id number] 3Result Comment: [07/11/2017] [facility]; 21173-750-12 HIGH DOSE 4Admin Note: H1N1 5Admin Note: [...] tablet, 0 Refills, Maintenance, 09/20/21 11:54:00 EST, [facility] # [facility], 167.6, cm, 08/19/21 11:48:00 [...]
--- OUTSIDE RECORDS SUMMARY | 2024-02-23 12:11 | XMS_ITS | Continuity of Care Document ---
Author Organization [facility] Sae lt Address [address] [place] [address]- Care Team Providers Care Automobile Parts Assembler Name Role Phone Edmond BRANDT, Weslye Kaur Primary Care Physician En[place] [facility] Date(s): 11/04/20 - 12/04/20 [facility] Adult [address] [place] [address]- Allergies, Adverse Reactions, Alerts Substance Reaction Severity [...] (PPV23) (oldterm) 12/01/01 Given 1Result Comment: [07/11/2017] [facility]; 79215-536-54 HIGH DOSE 2Admin Note: H1N1 3Admin Note: recieved elsewhere Medications acetaminophen 325 mg oral tablet 650 mg, By Mouth, Every 6 hours, Refills 0, Maintenance, 09/19/19 11:55:00 EST Start Date: 09/19/19 Status: Ordered amLODIPine 5 mg oral tablet 5 mg, 1, tablet, By Mouth, Daily, # 90 tablet, Refills 3, Tot. Refills 3, Maintenance, 06/29/20 14:01:00 EDT, Route to Pharmacy Electronically, [facility], 167.6, cm, 06/16/20 10:40:00 EDT, Height, 101.2, kg, 09/17/19 10:13:00 EST,... Start Date: 06/29/20 Status: Ordered atorvastatin 40 mg oral tablet 1 tablet = 40 mg, By Mouth, Daily, # 90 tablet, 1 Refills, Soft Stop, 09/07/20 14:24:00 EST, [facility], 167.6, cm, 08/19/20 7:30:00 EST, Height, 101.2, kg, 09/17/19 10:13:00 EST, Dry Weight Start Date: 09/07/20 Status: Ordered cholecalciferol 2000 intl units oral [...] capsule, Refills 1, Tot. Refills 1, Maintenance, 11/25/20 10:10:00 EST, Route to Pharmacy Electronically, [facility], 167.6, cm, 09/09/20 14:14:00 EST, Height, 101.2, kg, 09/17/19 10:13:00 ES... Start Date: 11/25/20 Status: Ordered fluticasone 50 mcg/inh nasal spray 2 sprays, Nasal, Daily, in each nostril use opposite hnad for each nostril, # 16 Gm, 1 Refills, Maintenance, 10/23/20 9:37:00 EST, [facility], 2 sprays Nasal Daily,Instr:in each nostril; use opposite hnad for each nostril, 167.6, c... Start Date: 10/23/20 Status: Ordered Imodium A-D 2 mg oral tablet 2 mg, 1, tablet, By Mouth, Every 4 hours, PRN, # 60 tablet, Refills 0, Maintenance, for loose stool, 09/17/19 6:57:56 EST Start Date: 09/17/19 Status: Ordered LORazepam 0.5 mg oral tablet 1 tablet = 0.5 mg, By Mouth, Daily at bedtime, # 90 tablet, 1 Refills, Maintenance, 07/13/20 16:01:00 EDT, [facility], 167.6, cm, 06/30/20 9:53:00 EDT, Height, 101.2, kg, 09/17/19 10:13:00 EST, Dry Weight Start Date: 07/13/20 Status: Ordered omeprazole 20 mg oral enteric coated capsule 1 capsule = 20 mg, By Mouth, Daily, # 90 capsule, 3 Refills, Maintenance, 08/26/20 13:24:00 EST, ECCapsule, [facility], 167.6, cm, 08/19/20 7:30:00 EST, Height, 101.2, kg, 09/17/19 10:13:00 EST, Dry Weight Start Date: 08/26/20 Stop Date: 08/21/21 Status: Ordered Singulair 10 mg oral tablet 10 mg, 1, tablet, By Mouth, Daily in PM, # 90 tablet, Refills 3, Tot. Refills 3, Maintenance, 06/16/20 10:33:00 EDT, Route to Pharmacy Electronically, [facility], 167.6, cm, 06/16/20 10:24:00 EDT, Height, 101.2, kg, 09/17/19 10:13:0... Start Date: 06/16/20 Status: Ordered spacer for MDI spacer for [...]
--- OUTSIDE RECORDS SUMMARY | 2024-02-23 12:12 | XMS_ITS | Continuity of Care Document ---
Author Organization [facility] Sae lt Address [address] [place] [address]- Care Team Providers Care Head Athletic Trainer Name Role Phone Edmond BRANDT, Wesley Kaur Primary Care Physician Encounter [facility] Date(s): 07/13/21 - 08/12/21 [facility] Adult [address] [place] [address]- Allergies, Adverse Reactions, Alerts Substance Reaction Severity Status ciprofloxacin diarrhea Active codeine nausea Active baclofen SEVERE GI UPSET Active Spiriva 1 Active Macrobid GI upset Active 1urinary Immunizations [...] 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 Given 1Result Comment: [facility]: [id number] 2Result Comment: [facility]: [id number] 3Result Comment: [07/11/2017] [facility]; 59555-465-18 HIGH DOSE 4Admin Note: H1N1 5Admin Note: [...] Refills, Soft Stop, 03/04/21 12:12:00 EDT, [facility], 167.6, cm, 02/24/21 14:50:00 EDT, [...] 14:32:00 EDT, Route to Pharmacy Electronically, [facility], Partial fill upon patient request [...] bedtime, # 90 tablet, 1 Refills, Maintenance, 07/26/21 14:47:00 EDT, [facility], 167.6, cm, 07/26/21 14:38:00 EDT, Height, 107.9, kg, 02/24/2113:39:00 EDT, Dry Weight Start Date: 07/26/21 Status: Ordered omeprazole 20 mg oral enteric [...] mg, 1, tablet, By Mouth, Daily, # 30 tablet, Refills 0, Tot. Refills 0, Maintenance, 08/05/21 14:52:00 EDT, Route to Pharmacy Electronically, [facility] # [facility], Partial fill upon patient request if the prescription is for a schedule II opioid . Start Date: 08/05/21 Status: Ordered Voltaren 1% topical gel = 2 Gm, Topically, 4 times a day, # 100 Gm, 0 Refills, Maintenance, 05/07/20 9:13:00 EDT, Gel, [facility] # [facility], 2 Gm Topically 4 [...] 30-39.9)(Confirmed) Active Osteoporosis endocrinology addresing(Confirmed) 04/02/20 Active Female pelvic pain(Confirmed) 08/04/21 Active [...]
--- OUTSIDE RECORDS SUMMARY | 2024-02-23 12:13 | XMS_ITS | Continuity of Care Document ---
Author Organization [facility] Sae lt Address [address] [place] [address]- Care Team Providers Care World Renowned Chef And Restaurant Owner Name Role Phone Kae GEOLOGY SCIENTIST, Jovana Ghosh Primary Care Physician [phone] Encounter [facility] Date(s): 03/23/23 - 04/22/23 [facility] Adult [address] [place] [address]- Attending Physician: Imtiaz, Rosamaria Referring Physician: Elena Dowd Allergies, Adverse Reactions, Alerts Substance Reaction Severity Status ciprofloxacin diarrhea Active codeine nausea Active Spiriva 1 Active baclofen SEVERE GI UPSET Active Macrobid GI upset Active 1urinary Immunizations Given and Recorded Vaccine Date Status Refusal Reason pneumococcal 20-valent conjugate vaccine 1 02/13/23 Given [id number] 12y+ bivalent booster vax 2 08/12/22 Given influenza virus vaccine, inactivated 3 08/12/22 Gi marlene influenza virus vaccine, inactivated 4 07/26/21 Gi marlene influenza virus vaccine, inactivated 08/19/20 Give n influenza virus vaccine, inactivated 08/06/19 Give n influenza virus vaccine, inactivated 08/03/18 Give n influenza virus vaccine, inactivated 5 07/11/17 Gi marlene influenza virus vaccine, inactivated 07/22/16 Give n influenza virus vaccine, inactivated 08/21/15 Give n influenza virus vaccine, inactivated 08/08/14 Give n influenza virus vaccine, inactivated 06/10/13 Give n influenza virus vaccine, inactivated 08/17/10 Give n SARS-CoV-2 (COVID-19) mRNA-1273 vaccine 10/19/21 R ecorded pneumococcal 23-valent vaccine 6 07/26/21 Given SARS-CoV-2 (COVID-19) mRNA BNT-162b2 vac 01/21/21 Recorded SARS-CoV-2 (COVID-19) mRNA BNT-162b2 vac 12/30/20 Recorded zoster vaccine, inactivated 09/23/20 Recorded zoster vaccine, inactivated 05/21/20 Recorded tetanus-diphtheria toxoids (Td) 01/10/18 Given tetanus-diphtheria toxoids (Td) 12/01/95 Given pneumococcal 13-valent vaccine 10/22/14 Given FluLaval (oldterm) 06/08/12 Given influ virus vac, H1N1, inactive(oldterm) 06/15/11 Given influ virus vac, H1N1, inactive(oldterm) 7 09/22/09 Given Zostavax (oldterm) 05/13/09 Given Influenza Inactive (IM) (oldterm) 8 08/05/08 Given Tet/Diphth/Acel, Pertussis (oldterm) 12/05/07 Give n Pneumococcal 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 Given 1Result Comment: [id number] 2Result Comment: [facility]-[id number] left lower deltoid 3Result Comment: [facility]-[id number] left upper deltoid 4Result Comment: [facility]: [id number] 5Result Comment: [07/11/2017] [facility]; 33416-501-81 HIGH DOSE 6Result Comment: [facility]: [id number] 7Admin Note: H1N1 8Admin Note: recieved elsewhere Medications amLODIPine 5 mg oral tablet 1 tablet, By Mouth, Daily, # 90 tablet, 3 Refills, Maintenance, 07/27/22 11:13:00 EDT, [facility], 167.6, cm, 05/10/22 16:16:00 EDT, Height, 97.8, kg, 04/29/22 14:30:00 EDT, Dry Weight Start Date: 07/27/22 Status: Ordered atorvastatin 40 mg oral tablet 1 tablet, By Mouth, Daily, # 90 tablet, 1 Refills, Maintenance, 02/22/23 18:23:00 EDT, [facility], 167.6, cm, 02/13/23 15:04:00 EDT, Height, 97.8, kg, 04/29/22 14:30:00 EDT, Dry Weight Start Date: 02/22/23 Status: Ordered calcium (as citrate)-vitamin D 315 mg-250 intl units oral tablet 1 tablet, By Mouth, 2 times a day, # 120 tablet, 3 Refills, Maintenance, 04/20/23 16:10:00 EDT, Tablet, [facility] # [facility], Partial fill upon patient request if the prescription is for a schedule IIopioid drug., 1 tablet By Mouth 2 times a day, 167.... Start Date: 04/20/23 Status: Ordered Caltrate 600 + D oral [...] By Mouth, Daily, # 90 capsule, Refills 0, Tot. Refills 0, Maintenance, 12/02/22 21:16:00 EST, Route to Pharmacy Electronically, [facility], Partial fill upon patient request if the prescription is for a schedule I... Start Date: 12/02/22 Status: Ordered fluticasone 50 mcg/inh nasal spray [...] 0.5 mg, By Mouth, Daily at bedtime, use sparingly- not regularly, # 30 tablet, 0 Refills, Maintenance, 04/12/23 21:18:00 EDT, Tablet, [facility], Partial fill upon patient request if the prescription is for a schedule II... Start Date: 04/12/23 Status: Ordered omeprazole 20 mg oral enteric [...] esophagitis egd 2018 3, 4 Confirmed Active Anxiety, generalized Confirmed Active History of arthroplasty of both [...] venous insufficiency Confirmed Active Pyuria Confirmed Active Secondary hyperparathyroidism/e ndocrinology Confirmed Active Severe obesity (BMI 35.0-39.9) with comorbidity Confirmed Active Torus palatinus Confirmed Active Trochanteric [...] 1=remission 10zung 38 today;normal in counselling 11rx Procedures Procedure Date Related Diagnosis Body Site Status MRI of knee left- tear media l meniscus,bakers cyst 1 12/10/15 Completed EGD 2 09/12/08 Completed Bone density scan 3 01/30/08 Compl eted 1tear medial meniscus,bakers cyst 2h hernia,gastritis 3minor ostepenia Social History Social History Type Response Smoking Status Never smoker entered on: 10/09/13 Sex EKG study * Event Display: EKG Authored Date: * Event Display: EKG Authored Date: Cardiology * Jennifer Thornton: PERFORM Event Display: Cardiovascular Results Scanned Authored Date: [id number] Laboratory * Event Display: Non [facility] Lab Results Authored Date: * Event Display: Non BH Lab Results Authored Date: * Event Display: Non BH Lab Results Authored Date: Radiology * Event Display: Radiology Result Scanned Authored Date: * Event Display: Radiology Result Scanned Authored Date: * Event Display: Radiology Result Scanned Authored Date: Note * Jennifer Thornton: SIGN, VERIFY, PERFORM Event Display: Patient Education/Instruction Authored Date: [facility] So Trace Mendoza Clinical Summary Person Information Name BRIANNA HARKINS Age 66 Years 1945 12:00 AM PCP Edmond BRANDT, Wesley Kaur PCP Reason for Visit: Allergy Info: NKA Vital Signs Height Weight BMI Blood Pressure / Temperature Pulse Rate Respiratory Rate 02 Sat Mode of Delivery / Medication Information Acetaminophen/Butalbital/Caffeine (Fioricet 325 mg-50 mg-40 mg oral tablet) 1 tablet, Oral, every 4hours, As Needed, for headache, Refills: 1 Albuterol (ProAir HFA 90 mcg/inh inhalation aerosol with adapter) 2 puffs, Inhalation, every 6 hours, As Needed, for wheezing, Refills: 0 Budesonide-Formoterol (Symbicort 160mcg/4.5mcg Inhaler) 2 puffs, Inhalation, twice a day, (rinse mouth and throat after use), Refills: 0 Cholecalciferol (cholecalciferol 2000 intl units oral tablet) 1 tablet, Oral, Tomorrow, Refills: 11 Citalopram (citalopram 20 mg oral tablet) 1 tablet, Oral, Tomorrow, Refills: 0 Guaifenesin/Codeine (codeine-guaifenesin 10 mg-100 mg/5 ml oral syrup) 10 mL, Oral, Daily at Bedtime, Refills: 0 Lorazepam (lorazepam 0.5 mg oral tablet) , See Instructions, 1 tablet By Mouth Daily at bedtime, 90days, Refills: 3 Moxifloxacin (Avelox 400 mg oral tablet) 1 tablet, Oral, Tomorrow, Refills: 0 Multivitamin , Oral, Tomorrow, Refills: 0 Omeprazole (omeprazole 20 mg oral enteric coated capsule) 1 capsule, Oral, Tomorrow, Refills: 6 PredniSONE (prednisone 20 mg oral tablet) 1 tablet, Oral, twice a day, Refills: 0 Simvastatin (simvastatin 20 mg oral tablet) 1 tablet, Oral, Daily at Bedtime, Refills: 3 Spironolactone (spironolactone 25 mg oral tablet) 1 tablet, Oral, twice a day, Refills: 1 Problem List Date Problem 03/08/10 Vitamin D deficiency 09/16/09 Insomnia 10/17/05 Hyperlipidemia 03/08/10 Anxiety 10/17/05 Edema 10/17/05 Leukopenia 10/17/05 Obesity due to excess calories 10/17/05 Chronic osteoarthritis 10/17/05 Chronic tension-type headache 06/09/08 Gastro-esophageal reflux 09/17/09 Deficiency of vitamin D3 If the following labs have been performed in the last year, the most recent result is displayed below. Diagnostic Results Lab Result Value Date Lead Hemoglobin A1C LDL 68 10/20/11 HDL 73 10/20/11 Triglycerides 42 10/20/11 Total Cholesterol 149 10/20/11 Disclaimer: The information provided is of a general nature and is intended to be used in conjunction with the recommendations and advice of your health care practitioner. Every effort has been made to ensure that the information provided is accurate and complete at the time it is provided to you however, as your needs change, or, as new information becomes available, different or additional instructions may be required. If you have questions, please consult with your primary care provider or pharmacist, as appropriate. This information is not intended to serve as substitution for assessment and evaluation by a qualified health care provider. If you do not have a primary care provider, you may find a [facility] provider by calling [facility] at [phone]. Patient Education Information Follow-up Details: Patient Education Material: Patient Care team information Care Team Personnel Name: Juliet Hay NP Position: [facility] PCO Associate Professional Member Role: Primary Care Nurse Name: Jovana Pal NP Position: [facility] PCO Associate Professional Member Role: PCP Address: Address: [address] [place] [id number] Name: Michaela Castillo RN Position: [facility] RN Member Role: Primary Care Nurse Name: Leticia Barth RN Position: [facility] Onco RN Member Role: Primary Care Nurse Name: María Elena Dixon RN Position: [facility] RN Member Role: Primary Care Nurse Care Team Related Persons Name: ISAURO HARKINS Address: [address] [address] Name: AGNIESZKA MAURER Address: [address] [address]
--- OUTSIDE RECORDS SUMMARY | 2024-02-23 12:13 | XMS_ITS | Continuity of Care Document ---
Author Organization [facility] Sae lt Address [address] [place] [address]- Care Team Providers Care Protocol Manager Name Role Phone Edmond BRANDT, Wesley Kaur Primary Care Physician [phone] Encounter [facility] Date(s): 08/23/21 - 09/22/21 [facility] Adult [address] [place] [address]- Allergies, Adverse Reactions, Alerts Substance Reaction Severity [...] 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 Given 1Result Comment: [facility]: [id number] 2Result Comment: [facility]: [id number] 3Result Comment: [07/11/2017] [facility]; 02172-042-01 HIGH DOSE 4Admin Note: H1N1 5Admin Note: [...] tablet, 0 Refills, Maintenance, 09/20/21 11:54:00 EST, [facility], 167.6, cm, 08/19/21 11:48:00 [...]
--- OUTSIDE RECORDS SUMMARY | 2024-02-23 12:14 | XMS_ITS | Continuity of Care Document ---
Author Organization [facility] Address [address] [place] [address]- Care Team Providers Care Director Government Name Role Phone Wesley Pruitt MD Primary Care Physician Encounter [facility] Date(s): 05/15/20 - 09/12/20 [facility] [address] [place] [address] Attending Physician: Cuco Sher MD Admitting Physician: Cuco Sher MD Referring Physician: Wesley Pruitt MD Allergies, Adverse Reactions, [...] (PPV23) (oldterm) 12/01/01 Given 1Result Comment: [07/11/2017] [facility]; 46030-331-81 HIGH DOSE 2Admin Note: H1N1 3Admin Note: recieved elsewhere Medications acetaminophen 325 mg oral tablet 650 mg, By Mouth, Every 6 hours, Refills 0, Maintenance, 09/19/19 11:55:00 EST Start Date: 09/19/19 Status: Ordered amLODIPine 5 mg oral tablet 5 mg, 1, tablet, By Mouth, Daily, # 90 tablet, Refills 3, Tot. Refills 3, Maintenance, 06/29/20 14:01:00 EDT, Route to Pharmacy Electronically, [facility], 167.6, cm, 06/16/20 10:40:00 EDT, Height, 101.2, kg, 09/17/19 10:13:00 EST,... Start Date: 06/29/20 Status: Ordered atorvastatin 40 mg oral tablet 1 tablet = 40 mg, By Mouth, Daily, # 90 tablet, 1 Refills, Soft Stop, 09/07/20 14:24:00 EST, [facility], 167.6, cm, 08/19/20 7:30:00 EST, [...] capsule, Refills 1, Tot. Refills 1, Maintenance, 05/07/20 9:11:00 EDT, Route to Pharmacy Electronically, [facility], 167.6, cm, 05/07/20 8:56:00 EDT, Height, 101.2, kg, 09/17/19 10:13:00 EST,... Start Date: 05/07/20 Status: Ordered fluticasone 50 mcg/inh nasal spray 2 sprays, Nasal, Daily, in each nostril use opposite hnad for each nostril, # 16 Gm, 3 Refills, Maintenance, 01/10/20 8:38:00 EDT, [facility], 2 sprays Nasal Daily,Instr:in each [...] tablet, 1 Refills, Maintenance, 07/13/20 16:01:00 EDT, [facility], 167.6, cm, 06/30/20 9:53:00 EDT, [...] 06/16/20 10:33:00 EDT, Route to Pharmacy Electronically, [facility], 167.6, cm, 06/16/20 10:24:00 EDT, [...] Active LVH (left ventricular hypert rophy) Echo 2017(Confirmed) Active Depression, major(Confirmed) 7, 8, 9, 10 [...]
--- OUTSIDE RECORDS SUMMARY | 2024-02-23 12:14 | XMS_ITS | Continuity of Care Document ---
Author Organization [facility] Sae lt Address [address] [place] [address]- Care Team Providers Care Nurse Practitioner Manager Name Role Phone Kae MOLASSES PREPARER, Jovana Ghosh Primary Care Physician [facility] Date[facility]s): 05[facility]16[facility]23 - 06/15/23 [facility] Adult [address] [place] [address]- Allergies, Adverse Reactions, Alerts Substance Reaction Severity Status ciprofloxacin diarrhea Active codeine nausea Active baclofen SEVERE GI UPSET Active Spiriva 1 Active Macrobid GI upset Active 1urinary Immunizations Given and Recorded Vaccine Date Status Refusal Reason pneumococcal 20-valent conjugate vaccine 1 02/13/23 Given [id number] 12y+ bivalent booster vax 2 08/12/22 Given [...] 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 Given 1Result Comment: [id number] 2Result Comment: [id number] left lower deltoid 3Result Comment: [facility] [id number] left upper deltoid 4Result Comment: [facility]: [id number] 5Result Comment: [07/11/2017] [facility]; 18680-890-70 HIGH DOSE 6Result Comment: [facility]: [id number] 7Admin Note: H1N1 8Admin Note: recieved elsewhere Medications amLODIPine 5 mg oral tablet 1 tablet, By Mouth, Daily, # 90 tablet, 3 Refills, Maintenance, 07/27/22 11:13:00 EDT, [facility], 167.6, cm, 05/10/22 16:16:00 EDT, Height, 97.8, kg, 04/29/22 14:30:00 EDT, Dry Weight Start Date: 07/27/22 Status: Ordered atorvastatin 40 mg oral tablet 1 tablet, By Mouth, Daily, # 90 tablet, 1 Refills, Maintenance, 02/22/23 18:23:00 EDT, [facility], 167.6, cm, 02/13/23 15:04:00 EDT, [...] 05/17/23 13:17:00 EDT, Route to Pharmacy Electronically, [facility], 167.6, cm, 03/23/23 10:29:00 EDT, [...] 6:57:56 EST Start Date: 09/17/19 Status: Ordered omeprazole 20 mg oral enteric coated capsule 1 capsule, By Mouth, Daily, # 90 capsule, 3 Refills, 05/22/23 10:49:00 EDT, [facility], 167.6, cm, 03/23/23 10:29:00 EDT, Height, 97.8, kg, 04/29/22 14:30:00 EDT, Dry Weight Start Date: 05/22/23 Status: Ordered QUEtiapine 25 mg oral tablet 25 mg, 1, tablet, By Mouth, Daily at bedtime, for 30 days, replaces lorazepam, # 30 tablet, Refills0, Tot. Refills 0, Acute 07/06/23 7:52:00 EDT, 06/06/23 7:52:00 EDT, Route to Pharmacy Electronically, [facility], 167.6, cm, 03/23/23 10:29:0... Start Date: 06/06/23 Stop Date: 07/06/23 Status: Ordered Reclast 5 mg/100 mL intravenous [...] 14:31:00 EST, Route to Pharmacy Electronically, [facility], Partial fill upon patient request [...] Personnel Name: Satnam BUNDY, Juliet Snyder Position: [facility] PCO Associate Professional Member Role: Primary Care Nurse Name: Jovana Pal NP Position: [facility] Associate Professional Member Role: PCP Address: Address: [address] [place] [address]- Name: Michaela Castillo RN Position: S RN Member Role: Primary Care Nurse Name: Lary STRATTON, Leticia Barrientos Position: [facility] Onco RN Member Role: Primary Care Nurse Name: Stacy Garcia RN Position: [facility] RN Member Role: Primary Care Nurse Name: María Elena Dixon RN Position: S RN Member Role: Primary Care Nurse Care Team Related Persons Name: ISAURO HARKINS Address: [address] [address] Name: AGNIESZKA MAURER Address: [address] [address]
--- OUTSIDE RECORDS SUMMARY | 2024-02-23 12:14 | XMS_ITS | Continuity of Care Document ---
Author Organization [facility] Sae lt Address [address] [place] [address]- Care Team Providers Care Maintenance Coordinator Name Role Phone Edmond BRANDT, Wesley Kaur Primary Care Physician [phone] [facility] Date[facility]): 05[facility]08/20 - 06/07/20 [facility] Adult [address] [place] [address]- [facility] Allergies, Adverse Reactions, Alerts Substance Reaction Severity [...] (PPV23) (oldterm) 12/01/01 Given 1Result Comment: [07/11/2017] [facility]; [id number] HIGH DOSE 2Admin Note: H1N1 3Admin Note: [...] Dry Weight Start Date: 03/09/20 Status: Ordered calcium citrate 950 mg oral tablet 1 tablet = 950 mg, By Mouth, 2 times a day, # 60 tablet, 3 Refills, Maintenance, 05/14/20 13:34:00 EDT, Tablet, [facility], 167.6, cm, 05/14/20 12:44:00 EDT, Height, 101.2, kg, 09/17/19 10:13:00 EST, Dry Weight Start Date: 05/14/20 Stop Date: 09/11/20 Status: Ordered cholecalciferol 2000 intl units oral [...] 05/07/20 9:11:00 EDT, Route to Pharmacy Electronically, [facility], 167.6, cm, 05/07/20 8:56:00 EDT, Height, 101.2, kg, 09/17/19 10:13:00 EST,... Start Date: 05/07/20 Status: Ordered fluticasone 50 mcg/inh nasal spray 2 sprays, Nasal, Daily, in each nostril use opposite hnad for each nostril, # 16 Gm, 3 Refills, Maintenance, 01/10/20 8:38:00 EDT, [facility], 2 sprays [...] 1 Refills, Maintenance, 03/26/20 15:58:00 EDT, [facility], 167.6, cm, 03/10/20 15:20:00 EDT, [...] tablet, Refills 1, Tot. Refills 1, Maintenance, 06/03/20 14:27:00 EDT, Route to Pharmacy Electronically, [email or web address], 167.6, cm, 05/14/20 12:44:00 EDT, Height, 101.2, kg, 09/17/19 10:13:00 EST, Dry... Start Date: 06/03/20 Status: Ordered spacer for MDI spacer for [...]
--- OUTSIDE RECORDS SUMMARY | 2024-02-23 12:15 | XMS_ITS | Continuity of Care Document ---
Author Organization [facility] Sae lt Address [address] [place] [address]- Care Team Providers Care Acquisitions Logistics Analyst Name Role Phone Kae STOCK GRADER, Jovana Ghosh Primary Care Physician [phone] [facility] Date[facility]s): 02/02/23 - 03/04/23 [facility] Adult [address] [place] [address]- Allergies, Adverse Reactions, Alerts Substance Reaction Severity Status ciprofloxacin diarrhea Active codeine nausea Active baclofen SEVERE GI UPSET Active Macrobid GI upset Active Spiriva 1 Active 1urinary Immunizations Given and Recorded Vaccine Date Status Refusal Reason pneumococcal 20-valent conjugate vaccine 1 02/13/23 Given [id number] 12y+ bivalent booster vax 2 08/12/22 Given [...] 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 Given 1Result Comment: [id number] 2Result Comment: [facility]-[id number] left lower deltoid 3Result Comment: [facility]-[id number] left upper deltoid 4Result Comment: [facility]: [id number] 5Result Comment: [07/11/2017] [facility]; 64022-354-52 HIGH DOSE 6Result Comment: [facility]: [id number] 7Admin Note: H1N1 8Admin Note: recieved elsewhere Medications amLODIPine 5 mg oral tablet 1 tablet, By Mouth, Daily, # 90 tablet, 3 Refills, Maintenance, 07/27/22 11:13:00 EDT, [facility], 167.6, cm, 05/10/22 16:16:00 EDT, Height, 97.8, kg, 04/29/22 14:30:00 EDT, Dry Weight Start Date: 07/27/22 Status: Ordered atorvastatin 40 mg oral tablet 1 tablet, By Mouth, Daily, # 90 tablet, 1 Refills, Maintenance, 02/22/23 18:23:00 EDT, [facility], 167.6, cm, 02/13/23 15:04:00 EDT, Height, 97.8, kg, 04/29/22 14:30:00 EDT, Dry Weight Start Date: 02/22/23 Status: Ordered buPROPion 150 mg/24 hours (XL) [...] Instructions, 1 tablet By Mouth Daily -;2 , 11 Refills, Maintenance Start Date: 11/11/09 [...] bedtime, # 30 tablet, 1 Refills, Maintenance, 12/30/22 12:30:00 EDT, Tablet, [facility], Partial fill upon patient request if the prescriptionis for a schedule II opioid drug., 167.6, cm, 08/12... Start Date: 12/30/22 Status: Ordered omeprazole 20 mg oral enteric [...] insufficiency echo nov 2021 Confirmed 12/12/21 Active Osteoporosis Confirmed 04/02/20 Active PFO (patent [...] Team Personnel Name: Juliet Hay NP Position: [facility] PCO Associate Professional Member Role: Primary Care Nurse Name: Jovana Pal NP Position: [facility]O Associate Professional Member Role: PCP Address: Address: [address] [place] [address]- Name: Michaela Castillo RN Position: S RN Member Role: Primary Care Nurse Name: Leticia Barth RN Position: [facility] Onco RN Member Role: Primary Care Nurse Name: María Elena Dixon RN Position: [facility] RN Member Role: Primary Care Nurse Care Team Related Persons Name: TORIN ISAURO Address: [address] [address] Name: AGNIESZKA MAURER Address: [address] [address]
--- OUTSIDE RECORDS SUMMARY | 2024-02-23 12:15 | XMS_ITS | Continuity of Care Document ---
Author Organization [facility] ter Address [address] [place] [address]- Care Team Providers Care Revenue Field Agent Name Role Phone Edmond BRANDT, Wesley Kaur Primary Care Physician Encounter [facility] Date(s): 09/17/19 - 09/19/[address] [address]- [facility] Discharge Disposition: A-Transfer VNA/Home Health Attending Physician: Klaus Alford MD Admitting Physician: Klaus Alford MD Referring Physician: Klaus Alford MD Allergies, Adverse Reactions, Alerts Substance Reaction [...] (PPV23) (oldterm) 12/01/01 Given 1Result Comment: [07/11/2017] [facility]; 55580-119-70 HIGH DOSE 2Admin Note: H1N1 3Admin Note: recieved elsewhere Medications acetaminophen 325 mg oral tablet 650 mg, By Mouth, Every 6 hours, Refills 0, Maintenance, 09/19/19 11:55:00 EST Start Date: 09/19/19 Status: Ordered aspirin 162.5 mg oral capsule, extended release = 325 mg, By Mouth, 2 times a day, 0 Refills, Maintenance, 09/19/19 11:56:00 EST, ER Capsule Start Date: 09/19/19 Status: Ordered atorvastatin 40 mg oral tablet 1 tablet = 40 mg, By Mouth, Daily, # 90 tablet, 1 Refills, Soft Stop, 09/09/19 8:29:25 EST, 167, cm, 08/21/19 11:23:53 EST, Height, 98.6, kg, 04/25/19 21:28:36 EDT, Dry Weight Start Date: 09/09/19 Status: Ordered cholecalciferol 2000 intl units oral [...] capsule, Refills 1, Tot. Refills 1, Maintenance, 05/06/19 8:33:20 EDT, Route to Pharmacy Electronically, [id number], [facility], DECREASED DOSE Start Date: 05/06/19 Status: Ordered fluticasone 50 mcg/inh nasal spray 2 sprays, Nasal, Daily, in each nostril use opposite hnad for each nostril, # 3 box, 3 Refills, Maintenance, 04/05/18 14:50:48 EDT, 2 sprays Nasal Daily,Instr:in each nostril; use opposite hnad for each nostril Start Date: 04/05/18 Status: Ordered Imodium A-D 2 mg oral tablet 2 mg, 1, tablet, By Mouth, Every 4 hours, PRN, # 60 tablet, Refills 0, Maintenance, for loose stool, 09/17/19 6:57:56 EST Start Date: 09/17/19 Status: Ordered LORazepam 0.5 mg oral tablet 1 tablet = 0.5 mg, By Mouth, Daily at bedtime, # 90 tablet, 3 Refills, Maintenance, 08/21/19 12:01:00 EST Start Date: 08/21/19 Status: Ordered Maalox Plus Liquid 30 mL, By Mouth, Every 4 hours, PRN Other, Heartburn, 0 Refills, Maintenance, 09/19/19 11:56:00 EST, Suspension Start Date: 09/19/19 Status: Ordered Milk of Magnesia Liquid 30 mL, By Mouth, Daily, PRN Constipation, 0 Refills, Maintenance, 09/19/19 11:56:00 EST, Suspension Start Date: 09/19/19 Status: Ordered MiraLax Powder 1 pack/packet = 17 Gm, By Mouth, Daily, 0 Refills, Maintenance, 09/19/19 11:56:00 EST, Powder Start Date: 09/19/19 Status: Ordered omeprazole 20 mg oral enteric coated capsule 1 capsule = 20 mg, By Mouth, 2 times a day, # 180 capsule, 3 Refills, Maintenance, 08/15/19 10:35:59 EST, EC Capsule Start Date: 08/15/19 Stop Date: 08/09/20 Status: Ordered oxyCODONE 5 mg oral tablet 5 mg, 1, tablet, By Mouth, Every 4 hours, PRN, Refills 0, Tot. Refills 0, Maintenance, Pain , Mild,09/19/19 11:56:00 EST, Partial fill upon patient request Start Date: 09/19/19 Status: Ordered oxyCODONE 5 mg oral tablet 10 mg, 2, tablet, By Mouth, Every 4 hours, PRN, Refills 0, Tot. Refills 0, Maintenance, Pain , Moderate, 09/19/19 11:56:00 EST, Partial fill upon patient request Start Date: 09/19/19 Status: Ordered oxyCODONE 5 mg oral tablet See Instructions, PRN, Take 1-2 tablets (5-10 mg) By Mouth Every 4 hours as needed mild to moderatepain, # 84 tablet, Refills 0, Tot. Refills 0, Acute 09/26/19 11:59:00 EST, Pain , Mild, 09/19/19 11:58:00 EST, Instructions Replace Required Details, P... Start Date: 09/19/19 Stop Date: 09/26/19 Status: Ordered senna 187 mg oral tablet 1 tablet = 8.6 mg, By Mouth, Daily at bedtime, 0 Refills, Maintenance, 09/19/19 11:56:00 EST, Tablet Start Date: 09/19/19 Status: Ordered Singulair 10 mg oral tablet 10 mg, 1, tablet, By Mouth, Daily in PM, # 90 tablet, Refills 2, Tot. Refills 2, Maintenance, 03/25/19 9:07:52 EDT, Route to Pharmacy Electronically, [id number], [facility] Start Date: 03/25/19 Status: Ordered spacer for MDI spacer for MDI, See Instructions, # 1 box, Refills 0, Tot. Refills 0, Maintenance, use with MDI, 11/13/13 14:49:18, Compound Start Date: 11/13/13 Status: Ordered Zofran ODT 4 mg oral tablet, disintegrating = 4 mg, By Mouth, Every 6 hours, PRN Nausea & Vomiting, 0 Refills, Maintenance, 09/19/19 11:56:00 EST, Tablet Start Date: 09/19/19 Status: Ordered Zofran ODT 4 mg oral tablet, disintegrating = 4 mg, By Mouth, Every 6 hours, PRN Nausea & Vomiting, # 28 tablet, 0 Refills, Maintenance, 09/19/19 11:57:00 EST, Tablet Start Date: 09/19/19 Stop Date: 09/26/19 Status: Ordered Problem List Condition Effective Dates Status Health Status Inform ant Allergic rhinitis(Confirmed) Active Anxiety(Confirmed) Active Aortic heart murmur;nil echo 2016(Confirmed) 1 Active Back pain, chronic(Confirmed) Active Chronic depression(Confirmed ) 2, 3, 4, 5 Active Chronic fatigue(Confirmed) Active Chronic renal disease, stage 3, moderately decreased glomerular filtration rate (GFR) between 30-59 mL/min/1.73 square meter(Confirmed) Active Cough variant asthma(Confirmed) 6 Active Diverticulosis, sigmoid(Confirmed) 09/12/08 Active Encounter for monitoring barbra g-term proton pump inhibitor therapy(Confirmed) Active Edema(Confirmed) Active Essential familial hyperlipidemia(Confirmed) Active GERD without esophagitis egd 2018(Confirmed) 7, 8 Active History of arthroplasty of l eft knee(Confirmed) 09/17/19 Active IBS (irritable bowel syndrome)(Confirmed) 9 Active Impaired fasting glucose(Confirmed) 10 Active LVH (left ventricular hypert rophy) Echo 2016(Confirmed) Active Epicondylitis elbow, medial( Confirmed) 11 Active Obesity (BMI 30-39.9)(Confirmed) Active Chronic venous insufficiency(Confirmed) Active PND (post-nasal drip) globus(Confirmed) Active Pyuria(Confirmed) Active Trochanteric bursitis of lef t hip(Confirmed) Active Unspecified Vitamin D Deficiency(Confirmed) 12 Active 1referv echo 2PHQ9;one 3PHQ(;one-=remission 4PHQ9 1=remission 5zung 38 today;normal in counselling 6Borderline mild obstruction pre-bronchodilator. Significant response to bronchodilator to normal. The MVV is consistent with the level of FEV1. Lung volumes are normal. The carbon monoxide diffusing capacity is normal. The inspired volume is less than the vital capacity indicating that the actual DLCO may be underestimated. The findings of significant bronchodilator response to normal with normal DLCO is consistent with asthma. 7had EGD 8EGD pending 9seeing DR estrada.workup 10advised pre diabetic increased risk diabetes 11exercises 12rx Procedures Procedure Date Related Diagnosis Body Site Status History of arthroplasty of left knee 09/17/19 Completed Results Radiology Reports * Exam Date Time Procedure Performing Provider Status 09/17/19 11:12 PM Knee 1 or 2 Views Left Quinton Fried oya; Auth (Verified) Notes: (Knee 1 or 2 Views Left) Reason For Exam: Postop RESULT: Knee 1 or 2 Views Left Knee 1 or 2 Views Left 1 view INDICATION/CLINICAL QUESTION: Reason: Postop; Clinical Question(s): Other:; Implant Position; COMPARISON: None. FINDINGS: Total knee arthroplasty with intact hardware and normal alignment. No fracture. Surgical drain in place. IMPRESSION: No apparent complication. WSN: [id number] Dictated By: Arun Johnston MD Dictated Date/Time: 09/17/19 11:12 p Reviewed By: Arun Johnston MD Signed By: Arun Johnston MD Signed Date/Time: 09/17/19 11:12 pm Transcribed By: JULIET Transcribed Date/Time: 09/17/19 11:12 pm Vital Signs Most recent to oldest [Reference Range]: 1 2 3 Height 167.6 cm (09/19/19 7:55 AM) 167.6 cm (09/19/19 3:21 AM) 167.6 cm (09/19/19 1:15 AM) Weight 101.2 kg (09/17/19 10:13 AM) 101.2 kg (09/17/19 6:43 AM) Oxygen Saturation [94-100 %] 100 % (09/19/19 7:55 AM) 99 % (09/19/19 3:21 AM) 97 % (09/19/19 1:15 AM) Pulse Rate [55-90 bpm] 76 bpm (09/19/19 7:55 AM) 74 bpm (09/19/19 3:21 AM) 69 bpm (09/19/19 1:15 AM) Body Mass Index [18.5-24.99] 36.03 *>HHI* (09/17/19 10:13 AM) 36.03 *>HHI* (09/17/19 6:43 AM) Blood Pressure [90-138/55-84 mm Hg] 134/43mm Hg (09/19/19 7:55 AM) 139/51mm Hg *H* (09/19/19 3:21 AM) 142/55mm Hg *H* (09/19/19 1:15 AM) Respiratory Rate [16-30 br/min] 18 br/min (09/19/19 1:47 PM) 17 br/min (09/19/19 1:47 PM) 17 br/min (09/19/19 9:44 AM) Temperature [96.8-100.4 DegF] 98.5 DegF (09/19/19 7:55 AM) 97.9 DegF (09/19/19 3:21 AM) 97.9 DegF (09/19/19 1:15 AM) Liters per Minute 2 L/min (09/17/19 3:11 PM) 2 L/min (09/17/19 2:00 PM) 6 L/min (09/17/19 1:30 PM) Mode of Delivery (Oxygen) Room air (09/19/19 7:55 AM) Room air (09/19/19 3:21 AM) Room air (09/19/19 1:15 AM) Blood pressure sites Arm, left (09/19/19 7:55 AM) Arm, left (09/19/19 3:21 AM) Arm, left (09/19/19 1:15 AM) Temperature Route Oral (09/19/19 7:55 AM) Oral (09/19/19 3:21 AM) Oral (09/19/19 1:15 AM) Dry Weight 101.2 kg (09/17/19 10:13 AM) 101.2 kg (09/17/19 6:43 AM) Sensory deficits None (09/17/19 6:43 AM) Mobility assistance Independent (09/17/19 6:43 AM) Social History Social History Type Response Smoking Status Never smoker entered on: 10/09/13 Sex Female
--- OUTSIDE RECORDS SUMMARY | 2024-02-23 12:15 | XMS_ITS | Continuity of Care Document ---
Author Organization [facility] ter Address [address] [place] [address]- Care Team Providers Care Trauma Manager Name Role Phone Edmond BRANDT, Wesley Kaur Primary Care Physician [phone] [facility] [place]/21[place]22 - 04/20/[address] [address] Attending Physician: Ollie Connor MD Admitting Physician: Ollie Connor MD Referring Physician: Ollie Connor MD Allergies, Adverse Reactions, Alerts Substance Reaction [...] 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 Given 1Result Comment: [facility]: [id number] 2Result Comment: [facility]: [id number] 3Result Comment: [07/11/2017] [facility]; 18942-585-64 HIGH DOSE 4Admin Note: H1N1 5Admin Note: [...] 03/25/22 8:06:00 EDT, Route to Pharmacy Electronically, [facility], 167.6, cm, 03/25/22 7:30:... Start Date: 03/25/22 Status: Ordered FLUoxetine 20 mg oral capsule 20 mg, 1, capsule, By Mouth, Daily, # 90 capsule, Refills 3, Tot. Refills 3, Maintenance, 02/22/21 14:32:00 EDT, Route to Pharmacy Electronically, [facility], Partial fill upon patient request if the prescription is for a schedule I... Start Date: 02/22/21 Status: Ordered fluticasone 50 mcg/inh nasal spray 2 sprays, Nasal, Daily, in each nostril use opposite hnad for each nostril, # 16 Gm, 1 Refills, Maintenance, 10/28/21 15:32:00 EST, [facility], 2 sprays Nasal Daily,Instr:in each [...] schedule II... Start Date: 08/27/21 Status: Ordered Problem List Condition Effective Dates [...]
--- OUTSIDE RECORDS SUMMARY | 2024-02-23 12:16 | XMS_ITS | Continuity of Care Document ---
Author Organization [facility] Trace Sae lt Address [address] [place] [address]- Care Team Providers Care Quality Inspector Name Role Phone Edmond BRANDT, Wesley Kaur Primary Care Physician [phone] [facility] Date[facility]s): 08/23/21 - 09/22/21 [facility] Adult [address] [place] [address]- Allergies, Adverse Reactions, Alerts Substance Reaction Severity [...] 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 Given 1Result Comment: [facility]: [id number] 2Result Comment: [facility]: [id number] 3Result Comment: [07/11/2017] [facility]; 22590-900-44 HIGH DOSE 4Admin Note: H1N1 5Admin Note: [...]
--- OUTSIDE RECORDS SUMMARY | 2024-02-23 12:16 | XMS_ITS | Continuity of Care Document ---
Author Organization [facility] Address [address] [place] [address]- Care Team Providers Care Boiler Setter Name Role Phone Edmond BRANDT, Wesley Kaur Primary Care Physician [phone] Encounter [facility] Date(s): 03/09/22 - 04/08/22 [facility] [address] [place] [address]- Allergies, Adverse Reactions, Alerts Substance Reaction Severity [...] 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 Given 1Result Comment: [facility]: [id number] 2Result Comment: [facility]: [id number] 3Result Comment: [07/11/2017] [facility]; 07678-830-93 HIGH DOSE 4Admin Note: H1N1 5Admin Note: [...] Refills, Maintenance Start Date: 11/11/09 Status: Ordered cyclobenzaprine 5 mg oral tablet 1 tablet = 5 mg, By Mouth, Daily at bedtime, PRN back pain, for 7 days, # 7 tablet, 0 Refills, Acute 04/13/22 14:07:00 EDT, 04/06/22 14:07:00 EDT, [facility], 167.6, cm, 04/06/22 12:42:00 EDT, Height, 107.9, kg, 02/24/21 13:39:00 EDT, Dry Weight Start Date: 04/06/22 Stop Date: 04/13/22 Status: Ordered Eligen B12 1000 mcg oral [...] 03/25/22 8:06:00 EDT, Route to Pharmacy Electronically, [facility], 167.6, cm, 03/25/22 7:30:... Start Date: 03/25/22 Status: Ordered FLUoxetine 20 mg oral capsule 20 mg, 1, capsule, By Mouth, Daily, # 90 capsule, Refills 3, Tot. Refills 3, Maintenance, 02/22/21 14:32:00 EDT, Route to Pharmacy Electronically, [facility], Partial fill upon patient request if the prescription is for a schedule I... Start Date: 02/22/21 Status: Ordered fluticasone 50 mcg/inh nasal spray 2 sprays, Nasal, Daily, in each nostril use opposite hnad for each nostril, # 16 Gm, 1 Refills, Maintenance, 10/28/21 15:32:00 EST, [facility], 2 sprays Nasal Daily,Instr:in each [...]
--- OUTSIDE RECORDS SUMMARY | 2024-02-23 12:16 | XMS_ITS | Continuity of Care Document ---
Author Organization [facility] Sae lt Address [address] [place] [address]- Care Team Providers Care Device Test Engineer Name Role Phone Wesley Pruitt MD Primary Care Physician Encounter [facility] [place] Date(s): 11/23/21 - 11/30/21 [facility] [place] Adult [address] [place] [address]- Encounter Diagnosis UTI symptoms(Discharge Diagnosis) - 11/23/21 Major depression in full remission(Discharge Diagnosis) - 11/23/21 Attending Physician: Wesley Pruitt MD Allergies, Adverse [...] 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 Given 1Result Comment: [facility]: 5501-1317-60 2Result Comment: [facility]: 71101-879-67 3Result Comment: [07/11/2017] [facility]; 63989-126-56 HIGH DOSE 4Admin Note: H1N1 5Admin Note: [...] mg, By Mouth, Every 24 hours, # 30 tablet, 5 Refills, Maintenance, 11/12/21 10:51:00EST, [facility], Partial fill upon patient request if the prescription is for a schedule II opioid drug., 1 tablet By Mouth Every 24 hours, 16... Start Date: 11/12/21 Status: Ordered cholecalciferol 2000 intl units oral [...] 14:32:00 EDT, Route to Pharmacy Electronically, [facility], Partial fill upon patient request if the prescription is for a schedule I... Start Date: 02/22/21 Status: Ordered fluticasone 50 mcg/inh nasal spray 2 sprays, Nasal, Daily, in each nostril use opposite hnad for each nostril, # 16 Gm, 1 Refills, Maintenance, 10/28/21 15:32:00 EST, [facility], 2 sprays Nasal Daily,Instr:in each [...] Effective Dates Health Status Clinical Service Informant UTI symptoms Discharge Diagnosis 11/23/21 Major depression in full remission Discharge Diagnosis 11/23/21 Vital Signs Most recent to oldest [Reference Range]: 1 Height 167.6 cm (11/23/21 4:35 PM) Social History Social History Type Response Smoking Status Never smoker entered on: 10/09/13 Sex
--- OUTSIDE RECORDS SUMMARY | 2024-02-23 12:16 | XMS_ITS | Continuity of Care Document ---
Author Organization [facility] Sae lt Address [address] [place] [address]- Care Team Providers Care Buckle Coverer Name Role Phone Edmond BRANDT, Wesley Kaur Primary Care Physician Encounter [facility] [place] Date(s): 02/03/22 - 03/05/22 [facility] Adult [address] [place] [address]- Allergies, Adverse Reactions, Alerts Substance Reaction Severity [...] 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 Given 1Result Comment: [facility]: [id number] 2Result Comment: [facility]: 74140-372-09 3Result Comment: [07/11/2017] [facility]; 81816-296-33 HIGH DOSE 4Admin Note: H1N1 5Admin Note: [...]
--- OUTSIDE RECORDS SUMMARY | 2024-02-23 12:16 | XMS_ITS | Continuity of Care Document ---
Author Organization [facility] Sae lt Address [address] [place] [address]- Care Team Providers Care Furniture Finisher Apprentice Name Role Phone Kae SAMPLE PREPARATION SUPERVISOR, Jovana Ghosh Primary Care Physician Encounter [facility] Date(s): 10/07/22 - 11/06/22 [facility] Adult [address] [place] [address]- Allergies, Adverse Reactions, Alerts Substance Reaction Severity Status ciprofloxacin diarrhea Active codeine nausea Active baclofen SEVERE GI UPSET Active Macrobid GI upset Active Spiriva 1 Active 1urinary Immunizations Given and Recorded Vaccine Date Status Refusal Reason [id number] 12y+ bivalent booster vax 1 08/12/22 Given [...] 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 Given 1Result Comment: [facility]-[id number] left lower deltoid 2Result Comment: [facility]-[id number] left upper deltoid 3Result Comment: [facility]: 48371-899-71 4Result Comment: [07/11/2017] [facility]; 19453-241-04 HIGH DOSE 5Result Comment: [facility]: [id number] 6Admin Note: H1N1 7Admin Note: recieved elsewhere Medications amLODIPine 5 mg oral tablet 1 tablet, By Mouth, Daily, # 90 tablet, 3 Refills, Maintenance, 07/27/22 11:13:00 EDT, [facility], 167.6, cm, 05/10/22 16:16:00 EDT, Height, 97.8, kg, 04/29/22 14:30:00 EDT, Dry Weight Start Date: 07/27/22 Status: Ordered atorvastatin 40 mg oral tablet 1 tablet, By Mouth, Daily, # 90 tablet, 1 Refills, Maintenance, 08/26/22 9:23:00 EST, [facility], 167.6, cm, 08/12/22 11:12:00 EST, Height, 97.8, kg, 04/29/22 14:30:00 EDT, Dry Weight Start Date: 08/26/22 Status: Ordered betamethasone topical dipropionate 0.05% cream 1 application, Topically, 2 times a day, # 15 Gm, 0 Refills, Maintenance, 09/30/22 15:16:00 EST, Cream, [facility], Partial fill upon patient request if the prescription is for a schedule IIopioid drug., 1 application Topically 2 times a day... Start Date: 09/30/22 Status: Ordered buPROPion 150 mg/24 hours (XL) [...] 03/25/22 8:06:00 EDT, Route to Pharmacy Electronically, [facility], 167.6, cm, 03/25/22 7:30:... Start Date: 03/25/22 Status: Ordered FLUoxetine 20 mg oral capsule 20 mg, 1, capsule, By Mouth, Daily, # 90 capsule, Refills 3, Tot. Refills 3, Maintenance, 08/18/22 8:26:00 EST, Route to Pharmacy Electronically, [facility], Partial fill upon patient [...] bedtime, # 30 tablet, 1 Refills, Maintenance, 10/10/22 11:08:00 EST, Tablet, [facility], Partial fill upon patient request if the prescription is for a schedule II opioid drug., 167.6, cm, 08/12/22 11:12:... Start Date: 10/10/22 Status: Ordered omeprazole 20 mg oral enteric [...] Team Personnel Name: Leticia Alcantara RN Position: [facility] Onco RN Member Role: Primary Care Nurse Name: Juliet Hay NP Position: [facility] PCO Associate Professional Member Role: Primary Care Nurse Name: Jovana Pal NP Position: [facility] PCO Associate Professional Member Role: PCP Address: Address: [address] [place] [address]- Name: Michaela Castillo RN Position: S RN Member Role: Primary Care Nurse Name: Stacy Garcia RN Position: S RN Member Role: Primary Care Nurse Name: María Elena Dixon RN Position: S RN Member Role: Primary Care Nurse Care Team Related Persons Name: ISAURO HARKINS Address: [address] [address] Name: AGNIESZKA MAURER Address: [address] [address]
--- OUTSIDE RECORDS SUMMARY | 2024-02-23 12:16 | XMS_ITS | Continuity of Care Document ---
Author Organization [facility] Address [address] [place] [address]- Care Team Providers Care Gang Miner Name Role Phone Edmond BRANDT, Wesley Kaur Primary Care Physician [phone] [place] [facility] [place] 05/14/20 [facility] Adult [address] [place] [address]- [place] Encounter Diagnosis Mid back pain on right side(Discharge Diagnosis) - 05/07/20 Attending Physician: Kae SUSPECT ARTIST, Jovana Ghosh Allergies, Adverse Reactions, Alerts Substance Reaction Severity [...] (PPV23) (oldterm) 12/01/01 Given 1Result Comment: [07/11/2017] [facility]; 53456-266-49 HIGH DOSE 2Admin Note: H1N1 3Admin Note: [...] 1 Refills, Maintenance, 03/26/20 15:58:00 EDT, [facility], 167.6, cm, 03/10/20 15:20:00 EDT, [...] 12/06/19 10:36:00 EST, Route to Pharmacy Electronically, [facility], 167.6, cm, 09/19/19 7:55:00 EST, Height, 101.2, kg, 09/17/19 10:13:00... Start Date: 12/06/19 Status: Ordered Skelaxin 800 mg oral tablet 1 tablet = 800 mg, By Mouth, 2 times a day, PRN pain/ muscle spasm, for 7 days, # 14 tablet, 0 Refills, Acute 05/15/20 11:32:00 EDT, 05/08/20 11:32:00 EDT, Tablet, [facility], 167.6, cm, 05/07/20 8:56:00 EDT, Height, 101.2, kg, 09/17/19 10:13... Start Date: 05/08/20 Stop Date: 05/15/20 Status: Ordered spacer for MDI spacer for MDI, See Instructions, # 1 box, Refills 0, Tot. Refills 0, Maintenance, use with MDI, 11/13/13 14:49:18, Compound Start Date: 11/13/13 Status: Ordered Voltaren 1% topical gel = 2 Gm, Topically, 4 times a day, # 100 Gm, 0 Refills, Maintenance, 05/07/20 9:13:00 EDT, Gel, [facility], 2 Gm Topically [...] Dates Health Status Cl inical Service Informant Mid back pain on right side Discharge Diagnosis 05/07/20 Vital Signs Most recent to oldest [Reference Range]: 1 Height 167.6 cm (05/07/20 8:56 AM) Weight 105.0 kg (05/07/20 8:56 AM) Oxygen Saturation [94-100 %] 98 % (05/07/20 8:56 AM) Pulse Rate [55-90 bpm] 92 bpm *H* (05/07/20 8:56 AM) Body Mass Index [18.5-24.99] 37.38 *>HHI* (05/07/20 8:56 AM) Blood Pressure [90-138/55-84 mm Hg] 122/ 70mm Hg (05/07/20 8:56 AM) Respiratory Rate [16-30 br/min] 16 br/mi n (05/07/20 8:56 AM) Temperature [96.8-100.4 DegF] 98.5 DegF (05/07/20 8:56 AM) Blood pressure sites Arm, left (05/07/20 8:56 AM) Temperature Route Oral (05/07/20 8:56 AM) Social History Social History Type Response Smoking Status Never smoker entered on: 10/09/13 Sex
--- OUTSIDE RECORDS SUMMARY | 2024-02-23 12:16 | XMS_ITS | Continuity of Care Document ---
Author Organization [facility] Sae lt Address [address] [place] [address]- Care Team Providers Care Ironworker Wire Fence Erector Name Role Phone Edmond BRANDT, Wesley Kaur Primary Care Physician Encounter [facility] Date(s): 10/05/21 - 11/04/21 [facility] Adult [address] [place] [address]- Allergies, Adverse Reactions, Alerts Substance Reaction Severity [...] 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 Given 1Result Comment: [facility]: [id number] 2Result Comment: [facility]: [id number] 3Result Comment: [07/11/2017] [facility]; 03661-924-05 HIGH DOSE 4Admin Note: H1N1 5Admin Note: recieved elsewhere Medications amLODIPine 5 mg oral tablet 1 tablet = 5 mg, By Mouth, Daily, # 90 tablet, 1 Refills, Maintenance, 06/02/21 17:26:00 EDT, [facility], 167.6, cm, 02/24/21 14:50:00 EDT, Height, 107.9, kg, 02/24/21 13:39:00 EDT, Dry Weight Start Date: 06/02/21 Status: Ordered atorvastatin 40 mg oral tablet 1 tablet, By Mouth, Daily, # 90 tablet, 1 Refills, [facility], 167.6, cm, 08/19/21 11:48:00 EST, [...] 02/22/21 14:32:00 EDT, Route to Pharmacy Electronically, [facility], Partial fill upon patient request [...] tablet, 0 Refills, Maintenance, 09/20/21 11:54:00 EST, [facility], 167.6, cm, 08/19/21 11:48:00 [...] with MDI, 11/13/13 14:49:18, Compound Start Date: 2/12/14 Status: Ordered valsartan 160 mg oral tablet [...]
--- OUTSIDE RECORDS SUMMARY | 2024-02-23 12:17 | XMS_ITS | Continuity of Care Document ---
Author Organization [facility] Sae lt Address [address] [place] [address]- Care Team Providers Care Outdoor Studies Professor Name Role Phone Edmond BRANDT, Wesley Kaur Primary Care Physician Encounter [facility] Date(s): 02/22/21 - 03/24/21 [facility] Adult [address] [place] [address]- Allergies, Adverse Reactions, Alerts Substance Reaction Severity [...] (oldterm) 12/01/01 Given 1Result Comment: [07/11/2017] [facility]; 92295-590-06 HIGH DOSE 2Admin Note: H1N1 3Admin Note: recieved elsewhere Medications amLODIPine 5 mg oral tablet 5 mg, 1, tablet, By Mouth, Daily, # 90 tablet, Refills 3, Tot. Refills 3, Maintenance, 06/29/20 14:01:00 EDT, Route to Pharmacy Electronically, [facility], 167.6, cm, 06/16/20 10:40:00 EDT, Height, 101.2, kg, 09/17/19 10:13:00 EST,... Start Date: 06/29/20 Status: Ordered atorvastatin 40 mg oral tablet 1 tablet = 40 mg, By Mouth, Daily, # 90 tablet, 1 Refills, Soft Stop, 03/04/21 12:12:00 EDT, [facility], 167.6, cm, 02/24/21 14:50:00 EDT, [...] 14:32:00 EDT, Route to Pharmacy Electronically, [facility], Partial fill upon patient request if the prescription is for a schedule I... Start Date: 02/22/21 Status: Ordered fluticasone 50 mcg/inh nasal spray 2 sprays, Nasal, Daily, in each nostril use opposite hnad for each nostril, # 16 Gm, 1 Refills, Maintenance, 01/09/21 10:28:00 EDT, [facility], 2 sprays Nasal Daily,Instr:in each [...] bedtime, # 90 tablet, 0 Refills, Maintenance, 01/11/21 10:54:00 EDT, [facility], 167.6, cm, 12/07/20 13:11:00 EST, Height, 101.2, kg, 09/17/1910:13:00 EST, Dry Weight Start Date: 01/11/21 Status: Ordered omeprazole 20 mg oral enteric coated capsule 1 capsule = 20 mg, By Mouth, Daily, # 90 capsule, 3 Refills, Maintenance, 08/26/20 13:24:00 EST, ECCapsule, [facility], 167.6, cm, 08/19/20 7:30:00 EST, [...]
--- OUTSIDE RECORDS SUMMARY | 2024-02-23 12:17 | XMS_ITS | Continuity of Care Document ---
Author Organization [facility] S[facility] Address [address] [place] [address]- Care Team Providers Care Elevator Builder Name Role Phone Edmond BRANDT, Wesley Kaur Primary Care Physician Encounter [facility] Date(s): 05/08/20 - 06/07/20 [facility] Adult [address] [place] [address]- [facility] Allergies, Adverse Reactions, Alerts Substance Reaction Severity [...] (oldterm) 12/01/01 Given 1Result Comment: [07/11/2017] [facility]; 31709-914-65 HIGH DOSE 2Admin Note: H1N1 3Admin Note: [...] 1 Refills, Maintenance, 03/26/20 15:58:00 EDT, [facility], 167.6, cm, 03/10/20 15:20:00 EDT, [...] 06/03/20 14:27:00 EDT, Route to Pharmacy Electronically, [facility], 167.6, cm, 05/14/20 12:44:00 [...]
--- OUTSIDE RECORDS SUMMARY | 2024-02-23 12:17 | XMS_ITS | Continuity of Care Document ---
Author Organization [facility] Trace Sae lt Address [address] [place] [address]- Care Team Providers Care Equipment Manager Name Role Phone Kae GREGOR, Caroline Ghosh Primary Care Physician [phone] [facility] Date(s): 08/12/22 - 08/19/22 [facility] Adult [address] [place] [address]- Encounter Diagnosis Medicare annual wellness visit, subsequent(Discharge Diagnosis) - 07/29/22 Anemia, macrocytic(Discharge Diagnosis) - 07/29/22 Chronic fatigue(Discharge Diagnosis) - 07/29/22 Chronic renal disease, stage 3, moderately decreased glomerular filtration rate (GFR) between 30-59mL/min/1.73 square meter(Discharge Diagnosis) - 07/29/22 Cough variant asthma(Discharge Diagnosis) - 07/29/22 Diverticulosis, sigmoid(Discharge Diagnosis) - 07/29/22 GERD without esophagitis egd 2018(Discharge Diagnosis) - 07/29/22 Encounter for monitoring long-term proton pump inhibitor therapy(Discharge Diagnosis) - 07/29/22 IBS (irritable bowel syndrome)(Discharge Diagnosis) - 07/29/22 Impaired fasting glucose(Discharge Diagnosis) - 07/29/22 Mitral insufficiency echo nov 2021(Discharge Diagnosis) - 07/29/22 Hypertension(Discharge Diagnosis) - 07/29/22 LVH (left ventricular hypertrophy) Echo 2017(Discharge Diagnosis) - 07/29/22 Osteoporosis(Discharge Diagnosis) - 07/29/22 PFO (patent foramen ovale) possible ECHO 2021(Discharge Diagnosis) - 07/29/22 Secondary hyperparathyroidism/endocrinology(Discharge Diagnosis) - 07/29/22 Unspecified Vitamin D Deficiency(Discharge Diagnosis) - 07/29/22 PND (post-nasal drip) globus(Discharge Diagnosis) - 08/12/22 Major depression in full remission(Discharge Diagnosis) - 08/12/22 History of arthroplasty of both knesss(Discharge Diagnosis) - 08/12/22 Obese class II(Discharge Diagnosis) - 08/12/22 Attending Physician: Wesley Pruitt MD Allergies, Adverse Reactions, Alerts Substance Reaction Severity Status ciprofloxacin diarrhea Active codeine nausea Active baclofen SEVERE GI UPSET Active Macrobid GI upset Active Spiriva 1 Active 1urinary Immunizations Given and Recorded Vaccine Date Status Refusal Reason [id number] 12y+ bivalent booster vax 1 08/12/22 Given [...] (PPV23) (oldterm) 12/01/01 Given 1Result Comment: [facility]-[id number] left lower deltoid 2Result Comment: [facility]-[id number] left upper deltoid 3Result Comment: [facility]: [id number] 4Result Comment: [07/11/2017] [facility]; [id number] HIGH DOSE 5Result Comment: [facility]: [id number] 6Admin Note: H1N1 7Admin Note: recieved elsewhere Medications amLODIPine 5 mg oral tablet 1 tablet, By Mouth, Daily, # 90 tablet, 3 Refills, Maintenance, 07/27/22 11:13:00 EDT, [facility], 167.6, cm, 05/10/22 16:16:00 EDT, Height, 97.8, kg, 04/29/22 14:30:00 EDT, Dry Weight Start Date: 07/27/22 Status: Ordered atorvastatin 40 mg oral tablet 1 tablet, By Mouth, Daily, # 90 tablet, 1 Refills, [facility], 167.6, cm, 02/04/22 10:24:00 EDT, Height, 107.9, kg, 02/24/21 13:39:00 EDT, Dry Weight Start Date: 02/28/22 Status: Ordered betamethasone topical dipropionate 0.05% cream 1 application, Topically, 2 times a day, # 15 Gm, 0 Refills, Maintenance, 05/10/22 16:48:00 EDT, Cream, [facility], Partial fill [...] 03/25/22 8:06:00 EDT, Route to Pharmacy Electronically, [facility], 167.6, cm, 03/25/22 7:30:... Start Date: 03/25/22 Status: Ordered FLUoxetine 20 mg oral capsule 20 mg, 1, capsule, By Mouth, Daily, # 90 capsule, Refills 3, Tot. Refills 3, Maintenance, 08/18/22 8:26:00 EST, Route to Pharmacy Electronically, [facility] # [facility], Partial fill upon patient [...] 1 Refills, Maintenance, 08/12/22 11:44:00 EST, Tablet, [facility], Partial [...] Date: 08/27/21 Status: Ordered Problem List Condition Confirmation Course [...] Medicare annual wellness visit, subsequent Discharge Diagnosis 07/29/22 Anemia, macrocytic Discharge Diagnosis 07/29/22 Chronic fatigue Discharge Diagnosis 07/29/22 Chronic renal disease, stage 3, moderately decreased glomerular filtration rate (GFR) between 30-59 mL/min/1.73 square meter Discharge Diagnosis 07/29/22 Cough variant asthma Discharge Diagnosis 07/29/22 Diverticulosis, sigmoid Discharge Diagnosis 07/29/22 GERD without esophagitis egd 2018 Discharge Diagnosis 07/29/22 Encounter for monitoring long-term proton pump inhibitor therapy Discharge Diagnosis 07/29/22 IBS (irritable bowel syndrome) Discharge Diagnosis 07/29/22 Impaired fasting glucose Discharge Diagnosis 07/29/22 Mitral insufficiency echo nov 2021 Discharge Diagnosis 07/29/22 Hypertension Discharge Diagnosis 07/29/22 LVH (left ventricular hypertrophy) Echo 2016 Discharge Diagnosis 07/29/22 Osteoporosis Discharge Diagnosis 07/29/22 PFO (patent foramen ovale) possible ECHO 2021 Discharge Diagnosis 07/29/22 Secondary hyperparathyroidism /endocrinology Discharge Diagnosis 07/29/22 Unspecified Vitamin D Deficiency Discharge Diagnosis 07/29/22 PND (post-nasal drip) globus Discharge Diagnosis 08/12/22 Major depression in full remission Discharge Diagnosis 08/12/22 History of arthroplasty of both knesss Discharge Diagnosis 08/12/22 Obese class II Discharge Diagnosis 08/12/22 Vital Signs Most recent to oldest [Reference Range]: 1 Height 167.6 cm (08/12/22 11:12 AM) Weight 99.8 kg (08/12/22 11:12 AM) Oxygen Saturation [94-100 %] 100 % (08/12/22 11:12 AM) Pulse Rate [55-90 bpm] 69 bpm (08/12/22 11:12 AM) Body Mass Index [18.5-24.99 kg/m2] 35.53 kg/m2 *>HHI* (08/12/22 11:12 AM) Blood Pressure [90-138/55-84 mm Hg] 108/ 68mm Hg (08/12/22 11:12 AM) Respiratory Rate [16-30 br/min] 16 br/mi n (08/12/22 11:12 AM) Temperature [96.8-100.4 DegF] 97.8 DegF (08/12/22 11:12 AM) Mode of Delivery (Oxygen) Room air (08/12/22 11:12 AM) Blood pressure sites Arm, left (08/12/22 11:12 AM) Temperature Route Oral (08/12/22 11:12 AM) Weight Obtained Via Standing scale (08/12/22 11:12 AM) Social History Social History Type Response Smoking Status Never smoker entered on: 10/09/13 Sex Note * Hanh Porter: PERFORM, SIGN, VERIFY Event Display: Patient Education/Instruction Authored Date: [id number] [facility] *[facility] Name BRIANNA HARKINS Age 76 Years 1945 PCP Edmond BRANDT, Wesley Kaur PCP Visit Date 08/12/2022 11:10:00 Patient Instructions medication same try harder lose weight diet counts see caroline 6 months send [ortal message 5 months request blood work Additional Instructions: Scheduled Appointments?? Future Appointments ?No Future Appointments Scheduled Follow-Up Instructions ?? Diagnosis Chronic kidney disease, stage 3 unspecified; Secondary hyperparathyroidism of renal origin; Encounter for general adult medical examination without abnormal findings; Irritable bowel syndrome withoutdiarrhea; Impaired fasting glucose; Nutritional anemia, unspecified; Encounter for therapeutic druglevel monitoring; Nonrheumatic mitral (valve) insufficiency; Cardiomegaly; Body mass index [BMI] 35.0-35.9, adult; Essential (primary) hypertension; Age-related osteoporosis without current pathological fracture; Diverticulosis of large intestine without perforation or abscess without bleeding; Vitamin D deficiency, unspecified; Postnasal drip; Chronic fatigue, unspecified; Cough variant asthma; Atrial septal defect; Major depressive disorder, single episode, in full remission; Gastro-esophageal reflux disease without esophagitis; Presence of left artificial knee joint Medications: Please continue your medications until treatment is completed or stopped by your provider. Discuss any questions related to medications with your provider. New Medications [facility], [address] [place], [place] [id number], [phone] Lorazepam (LORazepam 0.5 mg oral tablet) 1 tab(s) Oral Daily at Bedtime. Refills: 1. Next Dose: Medications to Continue with No Changes These medications were not printed or sent to your pharmacy Amlodipine (amLODIPine 5 mg oral tablet) 1 tab(s) Oral Daily. Refills: 3. Next Dose: Atorvastatin (atorvastatin 40 mg oral tablet) 1 tab(s) Oral Daily. Refills: 1. Next Dose: Betamethasone Topical (betamethasone topical dipropionate 0.05% cream) 1 rob Topically twice a day.Refills: 0. Next Dose: BuPROpion (buPROPion 150 mg/24 hours (XL) oral tablet, extended release) 1 tab(s) Oral every 24 hours. Refills: 3. Next Dose: Calcium And Vitamin D Combination (Caltrate 600 + D oral tablet) 1 tab(s) Oral twice a day. Next Dose: Cholecalciferol (cholecalciferol 2000 intl units oral tablet) 1 tablet By Mouth Daily m-;2 weekend. Refills: 11. Next Dose: Cyanocobalamin (Eligen B12 1000 mcg oral tablet) 1 tab(s) Oral Daily. on an empty stomach. Refills:11. Next Dose: Dicyclomine 20 Milligram. Next Dose: Durable Medical Equipment (spacer for MDI) use with MDI. Refills: 0. Next Dose: Fluoxetine (FLUoxetine 10 mg oral capsule) 1 capsule Oral Daily. take in addition to 20mg dose for a total of 30mg per day. Refills: 0. Next Dose: Fluoxetine (FLUoxetine 20 mg oral capsule) 1 capsule Oral Daily. Refills: 3. Next Dose: Fluticasone Nasal (fluticasone 50 mcg/inh nasal spray) 2 spray(s) Nasal Daily. in each nostril use opposite hnad for each nostril. Refills: 1. Next Dose: fluticasone/umeclidinium/vilanterol (Trelegy Ellipta 200 mcg-62.5 mcg-25 mcg/inh inhalation powder)1 puff(s) Inhalation Daily. at the same time every day 14 doses. Refills: 0. Next Dose: Loperamide (Imodium A-D 2 mg oral tablet) 1 tab(s) Oral every 4 hours as needed for loose stool. Next Dose: Omeprazole (omeprazole 20 mg oral enteric coated capsule) 1 capsule Oral Daily. Refills: 3. Next Dose: Valsartan (valsartan 160 mg oral tablet) 1 tab(s) Oral Daily. Refills: 3. Next Dose: Zoledronic Acid (Reclast 5 mg/100 mL intravenous solution) 5 Milligram Intravenous Infusion once for 1 doses/times. Next Dose: Allergy Info:?? Spiriva; Macrobid; baclofen; codeine; ciprofloxacin Medications Given This Visit Medication Dose Route influenza virus vaccine, inactivated (influenza virus, inactivated vacc (High Dose)) 0.7 mL Intramuscular [id number] 12y+ bivalent booster vax (Pfizer-BioNTech COVID-19 (12y+) Bivalent Booster vacc) 0.3 mL Intramuscular Future Orders ?No future orders Vital Signs Height 167.6 cm Weight 99.8 kg BMI 35.53 kg/m2 Blood Pressure 108 mm Hg/68 mm Hg Temperature 97.8 DegF Pulse Rate 69 bpm Respiratory Rate 16 br/min 02 Sat Mode of Delivery 100 %/Room air You can now view a summary of your hospital visit from the comfort of your home through a free online portal called eToro. eToro is a website that allows you to securely view your medical information including discharge summary, medications and follow-up visits. ??You can alsosend a secure electronic message to your doctor???s office to request appointments, renew medications or just ask a question. You can enroll at [email or web address] or register during your next office visit. Disclaimer:?? The information provided is of a general nature and is intended to be used in conjunction with the recommendations and advice of your health care practitioner. ??Every effort has been made to ensure that the information provided is accurate and complete at the time it is provided to you however, as your needs change, or, as new ??information becomes available, different or additional instructions may be required. If you have questions, please consult with your primary care provider or pharmacist, as appropriate. ??This information is not intended to serve as substitution for assessment and evaluation by a qualified health care provider. If you do not have a primary care provider, you may find a [facility] provider by calling [facility] [employer] Link at [phone]. For information about the plan of care including goals and instructions for your diagnosis, please see the patient education orders section of this document. Patient Education Materials?? The content of this educational material or handout may have been modified, supplemented, or adapted from its original content and format to support your individualized medical care. Patient Care team information Care Team Personnel Name: Leticia Alcantara RN Position: S RN Member Role: Primary Care Nurse Name: Juliet Hay NP Position: [facility] Associate Professional Member Role: Primary Care Nurse Name: Caroline Pal NP Position: [facility] Associate Professional Member Role: PCP Address: Address: [address] [place] [address] Name: Michaela Castillo RN Position: S RN Member Role: Primary Care Nurse Name: Stacy Garcia RN Position: S RN Member Role: Primary Care Nurse Name: María Elena [place] RN Position: S RN Member Role: Primary Care Nurse Care Team Related Persons Name: TORIN ISAURO Address: [address] [address] Name: AGNIESZKA MAURER Address: [address] [address]
--- OUTSIDE RECORDS SUMMARY | 2024-02-23 12:17 | XMS_ITS | Continuity of Care Document ---
Author Organization [facility] Address [address] [place] [address]- Care Team Providers Care Printing Press Machinist Name Role Phone Edmond BRANDT, Wesley Kaur Primary Care Physician Encounter [facility] Date(s): 03/15/22 - 04/14/22 [facility] [address] [place] [address]- Allergies, Adverse Reactions, Alerts Substance Reaction Severity [...] (PPV23) (oldterm) 12/01/01 Given 1Result Comment: [facility]: [id number] 2Result Comment: [facility]: [id number] 3Result Comment: [07/11/2017] [facility]; [id number] HIGH DOSE 4Admin Note: H1N1 5Admin Note: [...] 03/25/22 8:06:00 EDT, Route to Pharmacy Electronically, [facility], 167.6, cm, 03/25/22 7:30:... [...]
--- OUTSIDE RECORDS SUMMARY | 2024-02-23 12:17 | XMS_ITS | Continuity of Care Document ---
Author Organization [facility] Trace Sae lt Address [address] [place] [address]- Care Team Providers Care Miller Apprentice Name Role Phone Kae FOREST PRODUCTS GATHERER, Jovana Ghosh Primary Care Physician [facility] Date[facility]s): 09/22/22 - 10/22/22 [facility] Adult [address] [place] [address]- Allergies, Adverse Reactions, Alerts Substance Reaction Severity Status ciprofloxacin diarrhea Active codeine nausea Active baclofen SEVERE GI UPSET Active Macrobid GI upset Active Spiriva 1 Active 1urinary Immunizations Given and Recorded Vaccine Date Status Refusal Reason [id number] 12y+ bivalent booster vax 1 08/12/22 Given [...] 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 Given 1Result Comment: [facility]-[id number] left lower deltoid 2Result Comment: [facility]-[id number] left upper deltoid 3Result Comment: [facility]: [id number] 4Result Comment: [07/11/2017] [facility]; 55309-346-10 HIGH DOSE 5Result Comment: [facility]: [id number] 6Admin Note: H1N1 7Admin Note: recieved elsewhere Medications amLODIPine 5 mg oral tablet 1 tablet, By Mouth, Daily, # 90 tablet, 3 Refills, Maintenance, 07/27/22 11:13:00 EDT, [facility], 167.6, cm, 05/10/22 16:16:00 EDT, Height, 97.8, kg, 04/29/22 14:30:00 EDT, Dry Weight Start Date: 07/27/22 Status: Ordered atorvastatin 40 mg oral tablet 1 tablet, By Mouth, Daily, # 90 tablet, 1 Refills, Maintenance, 08/26/22 9:23:00 EST, [facility], 167.6, cm, 08/12/22 11:12:00 EST, Height, 97.8, kg, 04/29/22 14:30:00 EDT, Dry Weight Start Date: 08/26/22 Status: Ordered betamethasone topical dipropionate 0.05% cream 1 application, Topically, 2 times a day, # 15 Gm, 0 Refills, Maintenance, 09/30/22 15:16:00 EST, Cream, [facility], Partial fill upon [...] 03/25/22 8:06:00 EDT, Route to Pharmacy Electronically, [facility], 167.6, cm, 03/25/22 7:30:... Start Date: 03/25/22 Status: Ordered FLUoxetine 20 mg oral capsule 20 mg, 1, capsule, By Mouth, Daily, # 90 capsule, Refills 3, Tot. Refills 3, Maintenance, 08/18/22 8:26:00 EST, Route to Pharmacy Electronically, [facility], Partial fill upon patient [...] 1 Refills, Maintenance, 10/10/22 11:08:00 EST, Tablet, [facility] # [facility], Partial fill upon patient [...] Team Personnel Name: Leticia Alcantara RN Position: [facility] Onco RN Member Role: Primary Care Nurse Name: Juliet Hay NP Position: [facility] PCO Associate Professional Member Role: Primary Care Nurse Name: Jovana Pal NP Position: [facility] Associate Professional Member Role: PCP Address: Address: [address] [place] [address]- Name: Michaela Castillo RN Position: S RN Member Role: Primary Care Nurse Name: Stacy Garcia RN Position: S RN Member Role: Primary Care Nurse Name: María Elena [place] RN Position: S RN Member Role: Primary Care Nurse Care Team Related Persons Name: ISAURO HARKINS Address: [address] [address] Name: AGNIESZKA MAURER Address: [address] [address]
--- OUTSIDE RECORDS SUMMARY | 2024-02-23 12:17 | XMS_ITS | Continuity of Care Document ---
Author Organization [facility] Trace Sae lt Address [address] [place] [address]- Care Team Providers Care Campaign Marketing Manager Name Role Phone Edmond BRANDT, Wesley Kaur Primary Care Physician [facility] Date[facility]s): 05/08/20 - 06/07/20 [facility] Adult [address] [place] [address]- [facility] Allergies, Adverse Reactions, Alerts Substance Reaction [...] (PPV23) (oldterm) 12/01/01 Given 1Result Comment: [07/11/2017] [facility] 2]; [id number] HIGH DOSE 2Admin Note: H1N1 3Admin Note: [...] 1 Refills, Maintenance, 03/26/20 15:58:00 EDT, [facility], 167.6, cm, 03/10/20 15:20:00 EDT, [...] 06/03/20 14:27:00 EDT, Route to Pharmacy Electronically, [facility], 167.6, cm, 05/14/20 12:44:00 [...]
--- OUTSIDE RECORDS SUMMARY | 2024-02-23 12:17 | XMS_ITS | Continuity of Care Document ---
Author Organization [facility] Sae lt Address [address] [place] [address]- Care Team Providers Care Hide Salter Name Role Phone Edmond BRANDT, Wesley Kaur Primary Care Physician [place] [facility] [place] 02/11/22 - 03/13/22 [facility] Adult [address] [place] [address]- Allergies, Adverse Reactions, Alerts Substance Reaction Severity [...] 12/01/01 Given 1Result Comment: [facility]: [id number] 2Result Comment: [facility]: [id number] 3Result Comment: [07/11/2017] [facility]; [id number] HIGH DOSE 4Admin Note: H1N1 5Admin Note: [...]
--- OUTSIDE RECORDS SUMMARY | 2024-02-23 12:17 | XMS_ITS | Continuity of Care Document ---
Author Organization [facility] Sae lt Address [address] [place] [address]- Care Team Providers Care Housekeeping Department Worker Name Role Phone Edmnod BRANDT, Wesley Kaur Primary Care Physician [phone] Encounter [facility] Date(s): 04/05/22 - 05/05/22 [facility] Adult [address] [place] [address]- Allergies, Adverse Reactions, Alerts Substance Reaction Severity [...] 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 Given 1Result Comment: [facility]: [id number] 2Result Comment: [facility]: [id number] 3Result Comment: [07/11/2017] [facility]; 68875-412-18 HIGH DOSE 4Admin Note: H1N1 5Admin Note: [...] 03/25/22 8:06:00 EDT, Route to Pharmacy Electronically, [email or web address], 167.6, cm, 03/25/22 7:30:... Start Date: 03/25/22 Status: Ordered FLUoxetine 20 mg oral capsule 20 mg, 1, capsule, By Mouth, Daily, # 90 capsule, Refills 3, Tot. Refills 3, Maintenance, 02/22/21 14:32:00 EDT, Route to Pharmacy Electronically, [facility], Partial fill upon patient request [...]
--- OUTSIDE RECORDS SUMMARY | 2024-02-23 12:17 | XMS_ITS | Continuity of Care Document ---
Author Organization [facility] Sae lt Address [address] [place] [address]- Care Team Providers Care Outside Sales Engineer Name Role Phone Edmond BRANDT, Wesley Kaur Primary Care Physician [place] [facility] [place] 11/16/21 - 12/16/21 [facility] Adult [address] [place] [address]- Allergies, Adverse Reactions, Alerts Substance Reaction Severity [...] (PPV23) (oldterm) 12/01/01 Given 1Result Comment: [facility]: [id number] 2Result Comment: [facility]: [id number] 3Result Comment: [07/11/2017] [facility]; [id number] HIGH DOSE 4Admin Note: H1N1 5Admin Note: [...] Refills, Maintenance, 09/20/21 11:54:00 EST, [facility], 167.6, cm, 08/19/21 [...]
--- OUTSIDE RECORDS SUMMARY | 2024-02-23 12:17 | XMS_ITS | Continuity of Care Document ---
Author Organization [facility] Sae lt Address [address] [place] [address]- Care Team Providers Care Petrologist Name Role Phone Kae CURRICULUM DIRECTOR, Jovana Ghosh Primary Care Physician [facility] Date(s): 05/31/23 - 06/30/23 [facility] Adult [address] [place] [address]- Allergies, Adverse Reactions, Alerts Substance Reaction Severity Status ciprofloxacin diarrhea Active codeine nausea Active baclofen SEVERE GI UPSET Active Macrobid GI upset Active Spiriva 1 Active 1urinary Immunizations Given and Recorded Vaccine Date Status Refusal Reason pneumococcal 20-valent conjugate vaccine 1 02/13/23 Given [id number] 12y+ bivalent booster vax 2 08/12/22 Given [...] 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 Given 1Result Comment: [id number] 2Result Comment: [facility]-[id number] left lower deltoid 3Result Comment: [facility]-[id number] left upper deltoid 4Result Comment: [facility]: [id number] 5Result Comment: [07/11/2017] [facility]; [id number] HIGH DOSE 6Result Comment: [facility]: [id number] 7Admin Note: H1N1 8Admin Note: recieved elsewhere Medications amLODIPine 5 mg oral tablet 1 tablet, By Mouth, Daily, # 90 tablet, 3 Refills, Maintenance, 07/27/22 11:13:00 EDT, [facility], 167.6, cm, 05/10/22 16:16:00 EDT, Height, 97.8, kg, 04/29/22 14:30:00 EDT, Dry Weight Start Date: 07/27/22 Status: Ordered atorvastatin 40 mg oral tablet 1 tablet, By Mouth, Daily, # 90 tablet, 1 Refills, Maintenance, 02/22/23 18:23:00 EDT, [facility], 167.6, cm, 02/13/23 15:04:00 EDT, [...] 13:17:00 EDT, Route to Pharmacy Electronically, [facility], 167.6, cm, 03/23/23 10:29:00 EDT, [...] 06/06/23 7:52:00 EDT, Route to Pharmacy Electronically, [facility], 167.6, cm, 03/23/23 10:29:0... [...] Associate Professional Member Role: PCP Address: Address: [address] [place] [address]- Name: Michaela Castillo RN Position: S RN Member Role: Primary Care Nurse Name: Lary STRATTON, Leticia Barrientos Position: [facility] Onco RN Member Role: Primary Care Nurse Name: Stacy Garcia RN Position: [facility] SN RN Member Role: Primary Care Nurse Name: María Elena [place] RN Position: [facility] RN Member Role: Primary Care Nurse Care Team Related Persons Name: ISAURO HARKINS Address: [address] [address] Name: AGNIESZKA MAURER Address: [address] [address]
--- OUTSIDE RECORDS SUMMARY | 2024-02-23 12:17 | XMS_ITS | Continuity of Care Document ---
Author Organization [facility] Sae lt Address [address] [place] [address]- Care Team Providers Care Sorter Lumber Straightener Name Role Phone Edmond BRANDT, Wesley Kaur Primary Care Physician [phone] [facility]counter [facility] Date(s): 09/20/21 - 10/20/21 [facility] Adult [address] [place] [address]- Allergies, Adverse Reactions, Alerts Substance Reaction Severity [...] 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 Given 1Result Comment: [facility]: [id number] 2Result Comment: [facility]: [id number] 3Result Comment: [07/11/2017] [facility]; 44863-519-88 HIGH DOSE 4Admin Note: H1N1 5Admin Note: recieved elsewhere Medications amLODIPine 5 mg oral tablet 1 tablet = 5 mg, By Mouth, Daily, # 90 tablet, 1 Refills, Maintenance, 06/02/21 17:26:00 EDT, [facility], 167.6, cm, 02/24/21 14:50:00 EDT, Height, 107.9, kg, 02/24/21 13:39:00 EDT, Dry Weight Start Date: 06/02/21 Status: Ordered atorvastatin 40 mg oral tablet 1 tablet, By Mouth, Daily, # 90 tablet, 1 Refills, [facility], 167.6, cm, 08/19/21 11:48:00 EST, [...] 02/22/21 14:32:00 EDT, Route to Pharmacy Electronically, [facility], Partial fill upon patient request [...] tablet, 0 Refills, Maintenance, 09/20/21 11:54:00 EST, [facility] # [facility], 167.6, cm, 08/19/21 11:48:00 [...]
--- OUTSIDE RECORDS SUMMARY | 2024-02-23 12:17 | XMS_ITS | Continuity of Care Document ---
Author Organization [facility] Sae lt Address [address] [place] [address]- Care Team Providers Care Used Car Renovator Name Role Phone Wesley Pruitt MD Primary Care Physician [phone] [facility]counter [facility] Date(s): 11/12/21 - 11/19/21 [facility] Adult [address] [place] [address]- Encounter Diagnosis Hypertension(Discharge Diagnosis) - 11/09/21 Essential familial hyperlipidemia(Discharge Diagnosis) - 11/09/21 h/o compression Fracture spine(Discharge Diagnosis) - 11/09/21 Impaired fasting glucose(Discharge Diagnosis) - 11/09/21 Osteoporosis(Discharge Diagnosis) - 11/09/21 Chronic renal disease, stage 3, moderately decreased glomerular filtration rate (GFR) between 30-59mL/min/1.73 square meter(Discharge Diagnosis) - 11/09/21 Secondary hyperparathyroidism/endocrinology(Discharge Diagnosis) - 11/09/21 Unspecified Vitamin D Deficiency(Discharge Diagnosis) - 11/09/21 GERD without esophagitis egd 2019(Discharge Diagnosis) - 11/09/21 Encounter for monitoring long-term proton pump inhibitor therapy(Discharge Diagnosis) - 11/09/21 Depression, major, recurrent, moderate(Discharge Diagnosis) - 11/12/21 Attending Physician: Wesley Pruitt MD Allergies, Adverse [...] 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 Given 1Result Comment: [facility]: [id number] 2Result Comment: [facility]: 56977-564-13 3Result Comment: [07/11/2017] [facility]; 36414-620-14 HIGH DOSE 4Admin Note: H1N1 5Admin Note: [...] 30 tablet, 5 Refills, Maintenance, 11/12/21 10:51:00EST, [facility] # [facility], Partial fill upon patient [...] tablet, 0 Refills, Maintenance, 09/20/21 11:54:00 EST, [facility] # [facility], 167.6, cm, 08/19/21 11:48:00 [...] 0 Refills, Maintenance, 05/07/20 9:13:00 EDT, Gel, [facility] # [facility], 2 Gm Topically 4 [...] Effective Dates Health Status Clinical Service Informant Hypertension Discharge Diagnosis 11/09/21 Essential familial hyperlipidemia Discharge Diagnosis 11/09/21 Chronic renal disease, stage 3, moderately decreased glomerular filtration rate (GFR) between 30-59 mL/min/1.73 square meter Discharge Diagnosis 11/09/21 Osteoporosis Discharge Diagnosis 11/09/21 Secondary hyperparathyroidism/ endocrinology Discharge Diagnosis 11/09/21 Unspecified Vitamin D Deficiency Discharge Diagnosis 11/09/21 h/o compression Fracture spine Discharge Diagnosis 11/09/21 Impaired fasting glucose Discharge Diagnosis 11/09/21 GERD without esophagitis egd 2018 Discharge Diagnosis 11/09/21 Encounter for monitoring long-term proton pump inhibitor therapy Discharge Diagnosis 11/09/21 Depression, major, recurrent, moderate Discharge Diagnosis 11/12/21 Vital Signs Most recent to oldest [Reference Range]: 1 Height 167.6 cm (11/12/21 10:32 AM) Weight 100.3 kg (11/12/21 10:32 AM) Oxygen Saturation [94-100 %] 99 % (11/12/21 10:32 AM) Pulse Rate [55-90 bpm] 95 bpm *H* (11/12/21 10:32 AM) Body Mass Index [18.5-24.99] 35.71 *>HHI* (11/12/21 10:32 AM) Blood Pressure [90-138/55-84 mm Hg] 107/ 70mm Hg (11/12/21 10:32 AM) Respiratory Rate [16-30 br/min] 16 br/mi n (11/12/21 10:32 AM) Temperature [96.8-100.4 DegF] 98.2 DegF (11/12/21 10:32 AM) Mode of Delivery (Oxygen) Room air (11/12/21 10:32 AM) Blood pressure sites Arm, left (11/12/21 10:32 AM) Temperature Route Oral (11/12/21 10:32 AM) Weight Obtained Via Standing scale (11/12/21 10:32 AM) Social History Social History Type Response Smoking Status Never smoker entered on: 10/09/13 Sex
--- OUTSIDE RECORDS SUMMARY | 2024-02-23 12:17 | XMS_ITS | Continuity of Care Document ---
Author Organization [facility] Sae lt Address [address] [place] [address]- Care Team Providers Care Propulsion Engineer Name Role Phone Edmond BRANDT, Wesley Kaur Primary Care Physician [phone] Encounter [facility] Date(s): 02/02/22 - 03/04/22 [facility] Adult [address] [place] [address]- Allergies, Adverse Reactions, Alerts Substance Reaction Severity [...] 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 Given 1Result Comment: [facility]: [id number] 2Result Comment: [facility]: [id number] 3Result Comment: [07/11/2017] [facility]; 48212-836-15 HIGH DOSE 4Admin Note: H1N1 5Admin Note: [...]
--- OUTSIDE RECORDS SUMMARY | 2024-02-23 12:17 | XMS_ITS | Continuity of Care Document ---
Author Organization [facility] Sae lt Address [address] [place] [address]- Care Team Providers Care Counter Tender Name Role Phone Kae PARK WORKER SUPERVISOR, Jovana Ghosh Primary Care Physician Encounter [facility] Date(s): 09/15/22 - 10/15/22 [facility] Adult [address] [place] [address]- Allergies, Adverse Reactions, Alerts Substance Reaction Severity Status ciprofloxacin diarrhea Active codeine nausea Active baclofen SEVERE GI UPSET Active Macrobid GI upset Active Spiriva 1 Active 1urinary Immunizations Given and Recorded Vaccine Date Status Refusal Reason [id number] 12y+ bivalent booster vax 1 08/12/22 Given [...] (oldterm) 12/01/01 Given 1Result Comment: [facility]-[id number] left lower deltoid 2Result Comment: [facility]-[id number] left upper deltoid 3Result Comment: [facility]: [id number] 4Result Comment: [07/11/2017] [facility]; 60612-742-81 HIGH DOSE 5Result Comment: [facility]: [id number] 6Admin Note: H1N1 7Admin Note: recieved elsewhere Medications amLODIPine 5 mg oral tablet 1 tablet, By Mouth, Daily, # 90 tablet, 3 Refills, Maintenance, 07/27/22 11:13:00 EDT, [facility], 167.6, cm, 05/10/22 16:16:00 EDT, Height, 97.8, kg, 04/29/22 14:30:00 EDT, Dry Weight Start Date: 07/27/22 Status: Ordered atorvastatin 40 mg oral tablet 1 tablet, By Mouth, Daily, # 90 tablet, 1 Refills, Maintenance, 08/26/22 9:23:00 EST, [facility], 167.6, cm, 08/12/22 11:12:00 EST, Height, 97.8, kg, 04/29/22 14:30:00 EDT, Dry Weight Start Date: 08/26/22 Status: Ordered betamethasone topical dipropionate 0.05% cream 1 application, Topically, 2 times a day, # 15 Gm, 0 Refills, Maintenance, 09/30/22 15:16:00 EST, Cream, [facility] # [facility], Partial fill upon [...] 03/25/22 8:06:00 EDT, Route to Pharmacy Electronically, [facility], 167.6, cm, 03/25/22 7:30:... Start Date: 03/25/22 Status: Ordered FLUoxetine 20 mg oral capsule 20 mg, 1, capsule, By Mouth, Daily, # 90 capsule, Refills 3, Tot. Refills 3, Maintenance, 08/18/22 8:26:00 EST, Route to Pharmacy Electronically, [facility] # [facility], Partial fill upon patient [...] 1 Refills, Maintenance, 10/10/22 11:08:00 EST, Tablet, [facility] # [facility], Partial fill upon patient [...] Team Personnel Name: Leticia Alcantara RN Position: [facility] Onco RN Member Role: Primary Care Nurse Name: Juliet Hay NP Position: [facility] PCO Associate Professional Member Role: Primary Care Nurse Name: Jovana Pal NP Position: [facility] Associate Professional Member Role: PCP Address: Address: [address] [place] [address]- Name: Michaela Castillo RN Position: S RN Member Role: Primary Care Nurse Name: Stacy Garcia RN Position: S RN Member Role: Primary Care Nurse Name: María Elena Dixon RN Position: S RN Member Role: Primary Care Nurse Care Team Related Persons Name: ISAURO HARKINS Address: [address] [address] Name: AGNIESZKA MAURER Address: [address] [address]
--- OUTSIDE RECORDS SUMMARY | 2024-02-23 12:17 | XMS_ITS | Continuity of Care Document ---
Author Organization [facility] Sae lt Address [address] [place] [address]- Care Team Providers Care Television Host Name Role Phone Edmond BRANDT, Wesley Kaur Primary Care Physician [phone] En[place] [facility] Date(s): 10/12/21 - 11/11/21 [facility] Adult [address] [place] [address]- Allergies, Adverse Reactions, Alerts Substance Reaction Severity [...] 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 Given 1Result Comment: [facility]: [id number] 2Result Comment: [facility]: 20651-637-33 3Result Comment: [07/11/2017] [facility]; 35763-666-46 HIGH DOSE 4Admin Note: H1N1 5Admin Note: [...] II(Confirmed) Active Obesity (BMI 30-39.9)(Confirmed) Active Osteoporosis(Confirmed) 7/2/20 Active Female pelvic pain(Confirmed) 08/04/21 Active Chronic [...]
--- OUTSIDE RECORDS SUMMARY | 2024-02-23 12:17 | XMS_ITS | Continuity of Care Document ---
Author Organization [facility] Sae lt Address [address] [place] [address]- Care Team Providers Care Temperature Regulator Name Role Phone Kae PAINTER AND PAPERHANGER APPRENTICE, Jovana Ghosh Primary Care Physician [phone] Encounter [facility] Date(s): 03/23/23 - 03/30/23 [facility] Adult [address] [place] [address]- Encounter Diagnosis Anxiety, generalized(Discharge Diagnosis) - 03/23/23 Attending Physician: Not on Staff, Attending MD Allergies, Adverse Reactions, Alerts Substance Reaction Severity Status ciprofloxacin diarrhea Active codeine nausea Active Spiriva 1 Active baclofen SEVERE GI UPSET Active Macrobid GI upset Active 1urinary Immunizations Given and Recorded Vaccine Date Status Refusal Reason pneumococcal 20-valent conjugate vaccine 1 02/13/23 Given [id number] 12y+ bivalent booster vax 2 08/12/22 Given [...] 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 Given 1Result Comment: [id number] 2Result Comment: [facility]-[id number] left lower deltoid 3Result Comment: [facility]-[id number] left upper deltoid 4Result Comment: [facility]: [id number] 5Result Comment: [07/11/2017] [facility]; 84050-827-39 HIGH DOSE 6Result Comment: [facility]: [id number] 7Admin Note: H1N1 8Admin Note: recieved elsewhere Medications amLODIPine 5 mg oral tablet 1 tablet, By Mouth, Daily, # 90 tablet, 3 Refills, Maintenance, 07/27/22 11:13:00 EDT, [facility], 167.6, cm, 05/10/22 16:16:00 EDT, Height, 97.8, kg, 04/29/22 14:30:00 EDT, Dry Weight Start Date: 07/27/22 Status: Ordered atorvastatin 40 mg oral tablet 1 tablet, By Mouth, Daily, # 90 tablet, 1 Refills, Maintenance, 02/22/23 18:23:00 EDT, [facility], 167.6, cm, 02/13/23 15:04:00 EDT, Height, 97.8, kg, 04/29/22 14:30:00 EDT, Dry Weight Start Date: 02/22/23 Status: Ordered Caltrate 600 + D oral [...] Effective Dates Health Status Clinical Service Informant Anxiety, generalized Discharge Diagnosis 03/23/23 Vital Signs Most recent to oldest [Reference Range]: 1 Height 167.6 cm (03/23/23 10:29 AM) Weight 108.6 kg (03/23/23 10:29 AM) Oxygen Saturation [94-100 %] 100 % (03/23/23 10:29 AM) Pulse Rate [55-90 bpm] 74 bpm (03/23/23 10:29 AM) Body Mass Index [18.5-24.99 kg/m2] 38.66 kg/m2 *>HHI* (03/23/23 10:29 AM) Blood Pressure [90-138/55-84 mm Hg] 121/ 69mm Hg (03/23/23 10:29 AM) Mode of Delivery (Oxygen) Room air (03/23/23 10:29 AM) Blood pressure sites Arm, left (03/23/23 10:29 AM) Weight Obtained Via Standing scale (03/23/23 10:29 AM) Social History Social History Type Response Smoking Status Never smoker entered on: 10/09/13 Sex Note * Hanh Porter: PERFORM, SIGN, VERIFY Event Display: Patient Education/Instruction Authored Date: [id number] [facility] *BMP So Trace Adlt Clinical Summary Name BRIANNA HARKINS Age 77 Years 1945 PCP Jovana Pal NP PCP Visit Date 03/23/2023 10:27:00 Additional Instructions: Scheduled Appointments?? Future Appointments ?*[facility] ?[address]??[place],??[address] ?Phone:??--?Fax:??-- ?Appt. Date:??04/20/2023?4:00 PM ?Scheduled Provider:??Lisandro Coleman MD Follow-Up Instructions ?? With: Address: When: Jovana Pal NP Comments: for annual exam in August Diagnosis Medications: Please continue your medications until treatment is completed or stopped by your provider. Discuss any questions related to medications with your provider. Medications to Continue Taking That Have Changed These medications were not printed or sent to your pharmacy - Fluoxetine (FLUoxetine 20 mg oral capsule) 2 capsule Oral Daily. Refills: 0. Next Dose: Medications to Continue with No Changes These medications were not printed or sent to your pharmacy Amlodipine (amLODIPine 5 mg oral tablet) 1 tab(s) Oral Daily. Refills: 3. Next Dose: Atorvastatin (atorvastatin 40 mg oral tablet) 1 tab(s) Oral Daily. Refills: 1. Next Dose: Calcium And Vitamin D Combination (Caltrate 600 + D oral tablet) 1 tab(s) Oral twice a day. Next Dose: Cholecalciferol (cholecalciferol 2000 intl units oral tablet) 1 tablet By Mouth Daily m-;2 weekend. Refills: 11. Next Dose: Cyanocobalamin (Eligen B12 1000 mcg oral tablet) 1 tab(s) Oral Daily. on an empty stomach. Refills:11. Next Dose: Dicyclomine 20 Milligram. Next Dose: Fluticasone Nasal (fluticasone 50 mcg/inh nasal spray) 2 spray(s) Nasal Daily. in each nostril use opposite hnad for each nostril. Refills: 1. Next Dose: Loperamide (Imodium A-D 2 mg oral tablet) 1 tab(s) Oral every 4 hours as needed for loose stool. Next Dose: Lorazepam (LORazepam 0.5 mg oral tablet) 1 tab(s) Oral Daily at Bedtime. Refills: 1. Next Dose: Omeprazole (omeprazole 20 mg oral enteric coated capsule) 1 capsule Oral Daily. Refills: 3. Next Dose: Valsartan (valsartan 160 mg oral tablet) 1 tab(s) Oral Daily. Refills: 3. Next Dose: Zoledronic Acid (Reclast 5 mg/100 mL intravenous solution) 5 Milligram Intravenous Infusion once for 1 doses/times. Next Dose: Allergy Info:?? Spiriva; Macrobid; baclofen; codeine; ciprofloxacin Medications Given This Visit Future Orders ?No future orders Vital Signs Height 167.6 cm Weight 108.6 kg BMI 38.66 kg/m2 Blood Pressure 121 mm Hg/69 mm Hg Temperature Pulse Rate 74 bpm Respiratory Rate 02 Sat Mode of Delivery 100 %/Room air You can now view a summary of your hospital visit from the comfort of your home through a free online portal called [employer]. [employer] is a website that allows you to securely view your medical information including discharge summary, medications and follow-up visits. ??You can alsosend a secure electronic message to your doctor???s office to request appointments, renew medications or just ask a question. You can enroll at [email or web address] or register during your next office visit. [...] primary care provider, you may find a [facility] provider by calling [facility] [employer] Link at [phone]. For information about the plan of care [...] Team Personnel Name: Juliet Hay NP Position: [facility] PCO Associate Professional Member Role: Primary Care Nurse Name: Jovana Pal NP Position: [facility] Associate Professional Member Role: PCP Address: Address: [address] [place] [address], [place] [address]- Name: Michaela Castillo RN Position: S RN Member Role: Primary Care Nurse Name: Leticia Barth RN Position: [facility] Onco RN Member Role: Primary Care Nurse Name: María Elena Dixon RN Position: [facility] RN Member Role: Primary Care Nurse Care Team Related Persons Name: ISAURO HARKINS Address: [address] [address] Name: AGNIESZKA MAURER Address: [address] [address]
--- OUTSIDE RECORDS SUMMARY | 2024-02-23 12:17 | XMS_ITS | Continuity of Care Document ---
Author Organization [facility] Sae lt Address [address] [place] [address]- Care Team Providers Care Drum Printer Name Role Phone Edmond BRANDT, Wesley Kaur Primary Care Physician [phone] Encounter [facility] Date(s): 06/22/20 - 07/30/20 [facility] Adult [address] [place] [address]- [facility] Attending Physician: Not on Staff, Attending MD [...] 12/01/01 Given 1Result Comment: [07/11/2017] [facility]; 15040-254-47 HIGH DOSE 2Admin Note: H1N1 3Admin Note: recieved elsewhere Medications acetaminophen 325 mg oral tablet 650 mg, By Mouth, Every 6 hours, Refills 0, Maintenance, 09/19/19 11:55:00 EST Start Date: 09/19/19 Status: Ordered amLODIPine 5 mg oral tablet 5 mg, 1, tablet, By Mouth, Daily, # 90 tablet, Refills 3, Tot. Refills 3, Maintenance, 06/29/20 14:01:00 EDT, Route to Pharmacy Electronically, [facility], 167.6, cm, 06/16/20 10:40:00 EDT, Height, 101.2, kg, 09/17/19 10:13:00 EST,... Start Date: 06/29/20 Status: Ordered atorvastatin 40 mg oral tablet 1 tablet = 40 mg, By Mouth, Daily, # 90 tablet, 1 Refills, Soft Stop, 03/09/20 11:18:00 EDT, [facility], 167.6, cm, 09/19/19 7:55:00 EST, [...] 05/07/20 9:11:00 EDT, Route to Pharmacy Electronically, [facility], 167.6, cm, 05/07/20 8:56:00 EDT, Height, 101.2, kg, 09/17/19 10:13:00 EST,... Start Date: 05/07/20 Status: Ordered fluticasone 50 mcg/inh nasal spray 2 sprays, Nasal, Daily, in each nostril use opposite hnad for each nostril, # 16 Gm, 3 Refills, Maintenance, 01/10/20 8:38:00 EDT, [facility], 2 sprays Nasal Daily,Instr:in each [...] tablet, 1 Refills, Maintenance, 07/13/20 16:01:00 EDT, [facility], 167.6, cm, 06/30/20 9:53:00 EDT, Height, 101.2, kg, 09/17/19 10:13:00 EST, Dry Weight Start Date: 07/13/20 Status: Ordered omeprazole 20 mg oral enteric coated capsule 1 capsule = 20 mg, By Mouth, Daily, # 90 capsule, 3 Refills, Maintenance, 08/15/19 10:35:59 EST, ECCapsule, [facility] Start Date: 08/15/19 Stop Date: [...] 10zung 38 today;normal in counselling 11exercises 12rx Procedures Procedure Date Related Diagnosis Body Site Status CT of brain and c spine nil major mild anterolisthessis c spiner 06/20/20 Comple crow Plain X-ray lumbar spine abn ormal l4 FX TRAUMA 06/20/20 Completed Plain X-ray of right wrist n ondusplaced fx mid scaphoid 06/20/20 Completed Social History Social History Type Response Smoking Status Never smoker entered on: 10/09/13 Sex
--- OUTSIDE RECORDS SUMMARY | 2024-02-23 12:17 | XMS_ITS | Continuity of Care Document ---
Author Organization [facility] Sae lt Address [address] [place] [address]- Care Team Providers Care Motor Vehicle Parts Interpreter Name Role Phone Kae SNOWMAKER, Jovana Ghosh Primary Care Physician [facility] Date(s): 07/29/22 - 08/28/22 [facility] Adult [address] [place] [address]- Allergies, Adverse Reactions, Alerts Substance Reaction Severity Status ciprofloxacin diarrhea Active codeine nausea Active baclofen SEVERE GI UPSET Active Macrobid GI upset Active Spiriva 1 Active 1urinary Immunizations Given and Recorded Vaccine Date Status Refusal Reason [id number] 12y+ bivalent booster vax 1 08/12/22 Given [...] (oldterm) 12/01/01 Given 1Result Comment: [facility]-[id number] left lower deltoid 2Result Comment: [facility]-[id number] left upper deltoid 3Result Comment: [facility]: [id number] 4Result Comment: [07/11/2017] [facility]; 40347-684-94 HIGH DOSE 5Result Comment: [facility]: [id number] 6Admin Note: H1N1 7Admin Note: recieved elsewhere Medications amLODIPine 5 mg oral tablet 1 tablet, By Mouth, Daily, # 90 tablet, 3 Refills, Maintenance, 07/27/22 11:13:00 EDT, [facility], 167.6, cm, 05/10/22 16:16:00 EDT, Height, 97.8, kg, 04/29/22 14:30:00 EDT, Dry Weight Start Date: 07/27/22 Status: Ordered atorvastatin 40 mg oral tablet 1 tablet, By Mouth, Daily, # 90 tablet, 1 Refills, Maintenance, 08/26/22 9:23:00 EST, [facility], 167.6, cm, 08/12/22 11:12:00 EST, Height, 97.8, kg, 04/29/22 14:30:00 EDT, Dry Weight Start Date: 08/26/22 Status: Ordered betamethasone topical dipropionate 0.05% cream 1 application, Topically, 2 times a day, # 15 Gm, 0 Refills, Maintenance, 05/10/22 16:48:00 EDT, Cream, [facility], Partial fill upon [...] 03/25/22 8:06:00 EDT, Route to Pharmacy Electronically, [facility], 167.6, cm, 03/25/22 7:30:... Start Date: 03/25/22 Status: Ordered FLUoxetine 20 mg oral capsule 20 mg, 1, capsule, By Mouth, Daily, # 90 capsule, Refills 3, Tot. Refills 3, Maintenance, 08/18/22 8:26:00 EST, Route to Pharmacy Electronically, [facility] # [facility], Partial fill upon patient [...] 1 Refills, Maintenance, 08/12/22 11:44:00 EST, Tablet, [facility] # [facility], Partial fill upon patient [...] RN Position: [facility] Onco RN Member Role: Primary Care Nurse Name: Juliet Hay NP Position: [facility] PCO Associate Professional Member Role: Primary Care Nurse Name: Jovana Pal NP Position: [facility] PCO Associate Professional Member Role: PCP Address: Address: [address] [place] [address]- Name: Michaela Castillo RN Position: S RN Member Role: Primary Care Nurse Name: Stacy Garcia RN Position: S RN Member Role: Primary Care Nurse Name: María Elena Dixon RN Position: S RN Member Role: Primary Care Nurse Care Team Related Persons Name: ISAURO HARKINS Address: [address] [address] Name: AGNIESZKA MAURER Address: [address] [address]
--- OUTSIDE RECORDS SUMMARY | 2024-02-23 12:18 | XMS_ITS | Continuity of Care Document ---
Author Organization [facility] Trace Sae lt Address [address] [place] [address]- Care Team Providers Care Bailer Tenders Supervisor Name Role Phone Edmond BRANDT, Wesley Kaur Primary Care Physician [phone] [place] [facility] [place] 01/06/21 [facility] Adult [address] [place] [address]- Attending Physician: Admtr, Ar8 Referring Physician: Elena Dowd Allergies, Adverse Reactions, Alerts Substance Reaction Severity Status ciprofloxacin diarrhea Active codeine nausea Active Macrobid GI upset Active Spiriva 1 Active baclofen SEVERE GI UPSET Active 1urinary Immunizations Given and Recorded Vaccine [...] 1Result Comment: [07/11/2017] [facility]; 21349-242-12 HIGH DOSE 2Admin Note: H1N1 3Admin Note: recieved elsewhere Medications acetaminophen 325 mg oral tablet 650 mg, By Mouth, Every 6 hours, Refills 0, Maintenance, 09/19/19 11:55:00 EST Start Date: 09/19/19 Status: Ordered amLODIPine 5 mg oral tablet 5 mg, 1, tablet, By Mouth, Daily, # 90 tablet, Refills 3, Tot. Refills 3, Maintenance, 06/29/20 14:01:00 EDT, Route to Pharmacy Electronically, [facility], 167.6, cm, 06/16/20 10:40:00 EDT, Height, 101.2, kg, 09/17/19 10:13:00 EST,... Start Date: 06/29/20 Status: Ordered atorvastatin 40 mg oral tablet 1 tablet = 40 mg, By Mouth, Daily, # 90 tablet, 1 Refills, Soft Stop, 09/07/20 14:24:00 EST, [facility], 167.6, cm, 08/19/20 7:30:00 EST, [...] Tablet Start Date: 03/15/17 Status: Ordered FLUoxetine 40 mg oral capsule 1 capsule = 40 mg, By Mouth, Daily, # 90 capsule, 0 Refills, Acute 03/02/21 12:00:00 EDT, 12/07/20 13:43:00 EST, Capsule, [facility], INCREASED DOSE, 167.6, cm, 12/07/20 13:11:00 EST, Height, 101.2, kg, 09/17/19 10:13:00 EST, Dry We... Start Date: 12/07/20 Stop Date: 03/02/21 Status: Ordered fluticasone 50 mcg/inh nasal spray 2 sprays, Nasal, Daily, in each nostril use opposite hnad for each nostril, # 16 Gm, 1 Refills, Maintenance, 10/23/20 9:37:00 EST, [facility], 2 sprays [...] 1 Refills, Maintenance, 07/13/20 16:01:00 EDT, [facility], 167.6, cm, 06/30/20 9:53:00 EDT, [...] Date: 08/26/20 Stop Date: 08/21/21 Status: Ordered spacer for MDI spacer for [...] Diagnosis Body Site Status MRI of knee left 1 12/10/15 Comple crow Ultrasound, pelvic (nonobste tric), real time with image documentation; complete 2 08/22/12 Completed EGD 3 09/12/08 Completed Bone density scan 4 01/30/08 Compl eted 1tear medial meniscus,bakers cyst 2nad 3h hernia,gastritis 4minor ostepenia Social History Social History Type Response Smoking Status Never smoker entered on: 10/09/13 Sex
--- OUTSIDE RECORDS SUMMARY | 2024-02-23 12:18 | XMS_ITS | Continuity of Care Document ---
Author Organization [facility] Trace Sae lt Address [address] [place] [address]- Care Team Providers Care Patient Registration Rep Name Role Phone Edmond BRANDT, Wesley Kaur Primary Care Physician [facility] Date(s): 06/26/20 - 07/26/20 [facility] Adult [address] [place] [address]- [place] Allergies, Adverse Reactions, Alerts Substance Reaction Severity [...] Given 1Result Comment: [07/11/2017] [facility]; 05866-031-80 HIGH DOSE 2Admin Note: H1N1 3Admin Note: [...] Refills, Soft Stop, 03/09/20 11:18:00 EDT, [facility], 167.6, cm, 09/19/19 7:55:00 EST, [...] 05/07/20 9:11:00 EDT, Route to Pharmacy Electronically, [facility], 167.6, cm, 05/07/20 8:56:00 EDT, Height, 101.2, kg, 09/17/19 10:13:00 EST,... Start Date: 05/07/20 Status: Ordered fluticasone 50 mcg/inh nasal spray 2 sprays, Nasal, Daily, in each nostril use opposite hnad for each nostril, # 16 Gm, 3 Refills, Maintenance, 01/10/20 8:38:00 EDT, [facility], 2 sprays Nasal Daily,Instr:in each [...] 1 Refills, Maintenance, 07/13/20 16:01:00 EDT, [facility], 167.6, cm, 06/30/20 9:53:00 EDT, Height, 101.2, kg, 09/17/19 10:13:00 EST, Dry Weight Start Date: 07/13/20 Status: Ordered omeprazole 20 mg oral enteric coated capsule 1 capsule = 20 mg, By Mouth, Daily, # 90 capsule, 3 Refills, Maintenance, 08/15/19 10:35:59 EST, ECCapsule, [facility] Start Date: 08/15/19 Stop Date: [...]
--- OUTSIDE RECORDS SUMMARY | 2024-02-23 12:18 | XMS_ITS | Continuity of Care Document ---
Author Organization [facility] Address [address] [place] [address]- Care Team Providers Care Belt Sewer Name Role Phone Kae Jovana BUNDY Primary Care Physician [phone] Encounter [facility] Date(s): 01/08/24 - 02/07/[facility] [address] [place] [id number] Allergies, Adverse Reactions, Alerts Substance Reaction Severity [...] pneumococcal 20-valent conjugate vaccine 5 02/13/23 Given [id number] 12y+ bivalent booster vax 6 08/12/22 Given [...] 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 Given 1Result Comment: [id number] 2Result Comment: [facility]-[id number] left upper deltoid 3Result Comment: [facility]: 30695-292-02 4Result Comment: [07/11/2017] [facility]; 51097-952-18 HIGH DOSE 5Result Comment: [id number] 6Result Comment: [facility]-[id number] left lower deltoid 7Result Comment: [facility]: [id number] 8Admin Note: H1N1 9Admin Note: recieved elsewhere [...] 02/02/24 14:30:00 EDT, Route to Pharmacy Electronically, [facility], 167.6, cm, 02/02/24 13:57:00EDT, Height, 97.8, kg, 04/29/22 14:30:00 EDT, Dry W... Start Date: 02/02/24 Status: Ordered fluticasone 50 mcg/inh nasal spray 2 sprays, Nasal, Daily, in each nostril use opposite hnad for each nostril, # 16 Gm, 1 Refills, Maintenance, 10/28/21 15:32:00 EST, [facility], 2 sprays Nasal Daily,Instr:in each [...] Personnel Name: Satnam BUNDY, Juliet Snyder Position: [facility] Associate Professional Member Role: Primary Care Nurse Name: Jovana Pal NP Position: [facility] Associate Professional Member Role: PCP Address: Address: [address] [place] [address]- Name: Michaela Castillo RN Position: [facility] RN Member Role: Primary Care Nurse Name: Leticia Barth RN Position: [facility] Onco RN Member Role: Primary Care Nurse Name: Stacy Garcia RN Position: [facility] AMB Nurse Member Role: Primary Care Nurse Name: María Elena Dixon RN Position: [facility] RN Member Role: Primary Care Nurse Care Team Related Persons Name: ISAURO HARKINS Address: [address] [address] Name: AGNIESZKA MAURER Address: [address] [address]
--- OUTSIDE RECORDS SUMMARY | 2024-02-23 12:18 | XMS_ITS | Continuity of Care Document ---
Author Organization [facility] Address [address] [place] [address]- Care Team Providers Care Porter Bath Name Role Phone Edmond BRANDT, Wesley Kaur Primary Care Physician [phone] [facility] [place] - 08/02/[address] [address]- Discharge Disposition: A-D/C Walkout Attending Physician: Not on Staff, Attending MD Admitting Physician: Not on Staff, Admitting MD Referring Physician: Not on Staff, Referring MD Allergies, Adverse Reactions, Alerts Substance Reaction [...] 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 Given 1Result Comment: [facility] 2]: 4734-1478-31 2Result Comment: [facility]NOTE 2]: 28064-392-60 3Result Comment: [07/11/2017] [facility] 2]; 50074-538-40 HIGH DOSE 4Admin Note: H1N1 5Admin Note: recieved elsewhere Medications amLODIPine 5 mg oral tablet 2 tablet = 10 mg, By Mouth, Daily, # 90 tablet, 1 Refills, Maintenance, 06/02/21 17:26:00 EDT, [facility], 167.6, cm, 02/24/21 14:50:00 EDT, Height, 107.9, kg, 02/24/21 13:39:00 EDT, Dry Weight Start Date: 06/02/21 Status: Ordered atorvastatin 40 mg oral tablet 1 tablet = 40 mg, By Mouth, Daily, # 90 tablet, 1 Refills, Soft Stop, 03/04/21 12:12:00 EDT, [facility], 167.6, cm, 02/24/21 14:50:00 EDT, [...] 14:32:00 EDT, Route to Pharmacy Electronically, [facility], Partial fill upon patient request if the prescription is for a schedule I... Start Date: 02/22/21 Status: Ordered fluticasone 50 mcg/inh nasal spray 2 sprays, Nasal, Daily, in each nostril use opposite hnad for each nostril, # 16 Gm, 1 Refills, Maintenance, 01/09/21 10:28:00 EDT, [facility], 2 sprays Nasal Daily,Instr:in each [...] 1 Refills, Maintenance, 07/26/21 14:47:00 EDT, [facility], 167.6, cm, 07/26/21 14:38:00 EDT, [...] 10zung 38 today;normal in counselling 11exercises 12rx Vital Signs Most recent to oldest [Reference Range]: 1 2 Oxygen Saturation [94-100 %] 99 % (08/02/21 3:13 PM) 100 % (08/02/21 5:14 AM) Pulse Rate [55-90 bpm] 102 bpm *H* (08/02/21 3:13 PM) 74 bpm (08/02/21 5:14 AM) Blood Pressure [90-138/55-84 mm Hg] 178/ 89mm Hg *H* (08/02/21 3:13 PM) 149/55mm Hg *H* (08/02/21 5:14 AM) Respiratory Rate [16-30 br/min] 16 br/mi n (08/02/21 3:13 PM) 17 br/min (08/02/21 5:14 AM) Temperature [96.8-100.4 DegF] 98.7 DegF (08/02/21 3:13 PM) 98.4 DegF (08/02/21 5:14 AM) Mode of Delivery (Oxygen) Room air (08/02/21 3:13 PM) Room air (08/02/21 5:14 AM) Blood pressure sites Arm, right (08/02/21 3:13 PM) Temperature Route Oral (08/02/21 3:13 PM) Oral (08/02/21 5:14 AM) Social History Social History Type Response Smoking Status Never smoker entered on: 10/09/13 Sex
--- OUTSIDE RECORDS SUMMARY | 2024-02-23 12:18 | XMS_ITS | Continuity of Care Document ---
Author Organization [facility] Sae lt Address [address] [place] [address]- Care Team Providers Care Estimator Name Role Phone Kae STORE OPERATIONS SPECIALIST, Jovana Ghosh Primary Care Physician [place] [facility] [place]23[place]22 - 10/23/22 [facility] Adult [address] [place] [address]- Attending Physician: Imtiaz, Rosamaria Referring Physician: Elena Dowd Allergies, Adverse Reactions, Alerts Substance Reaction Severity Status ciprofloxacin diarrhea Active codeine nausea Active baclofen SEVERE GI UPSET Active Macrobid GI upset Active Spiriva 1 Active 1urinary Immunizations Given and Recorded Vaccine Date Status Refusal Reason [id number] 12y+ bivalent booster vax 1 08/12/22 Given [...] 12/01/01 Given 1Result Comment: [facility]-[id number] left lower deltoid 2Result Comment: [facility]-[id number] left upper deltoid 3Result Comment: [facility]: 56532-904-57 4Result Comment: [07/11/2017] [facility]; 33809-820-37 HIGH DOSE 5Result Comment: [facility]: [id number] 6Admin Note: H1N1 7Admin Note: recieved elsewhere Medications amLODIPine 5 mg oral tablet 1 tablet, By Mouth, Daily, # 90 tablet, 3 Refills, Maintenance, 07/27/22 11:13:00 EDT, [facility], 167.6, cm, 05/10/22 16:16:00 EDT, Height, 97.8, kg, 04/29/22 14:30:00 EDT, Dry Weight Start Date: 07/27/22 Status: Ordered atorvastatin 40 mg oral tablet 1 tablet, By Mouth, Daily, # 90 tablet, 1 Refills, Maintenance, 08/26/22 9:23:00 EST, [facility], 167.6, cm, 08/12/22 11:12:00 EST, Height, 97.8, kg, 04/29/22 14:30:00 EDT, Dry Weight Start Date: 08/26/22 Status: Ordered betamethasone topical dipropionate 0.05% cream 1 application, Topically, 2 times a day, # 15 Gm, 0 Refills, Maintenance, 09/30/22 15:16:00 EST, Cream, [facility], Partial fill [...] 03/25/22 8:06:00 EDT, Route to Pharmacy Electronically, [facility], 167.6, cm, 03/25/22 7:30:... Start Date: 03/25/22 Status: Ordered FLUoxetine 20 mg oral capsule 20 mg, 1, capsule, By Mouth, Daily, # 90 capsule, Refills 3, Tot. Refills 3, Maintenance, 08/18/22 8:26:00 EST, Route to Pharmacy Electronically, [facility], Partial fill upon patient request if the prescription is for a schedule II opioid drCaroline.. Start Date: 08/18/22 Status: Ordered fluticasone 50 [...] 1 Refills, Maintenance, 10/10/22 11:08:00 EST, Tablet, [facility], Partial fill upon patient [...] Procedure Date Related Diagnosis Body Site Status Reference laboratory/CT abd/ pelvis/ekg 1 08/21/21 Completed MRI of knee left 2 12/10/15 Comple crow Ultrasound, pelvic (nonobste tric), real time with image documentation; complete 3 08/22/12 Completed EGD 4 09/12/08 Completed Bone density scan 5 01/30/08 Compl eted [address] [place] [address] emergency room August 21, 2021 white count 5.5 hemoglobin 12 platelet count 220 6K sodium 133 potassium 4.3 chloride 101 bicarb 20 BUN 11 creatinine 1.94 random glucose 99 liver function entirely normal lipase normal CT scan IV contrast enhanced CT abdomen pelvis no acute ab normalities sigmoid diverticulosis no diverticulitis evidence of cholecystectomy wedge deformity L4. EKG normal sinus rhythm rate 75 normal NM QRS QT. 2tear medial meniscus,bakers cyst 3nad 4h hernia,gastritis 5minor ostepenia Social History Social History Type Response Smoking Status Never smoker entered on: 10/09/13 Sex EKG study * Event Display: EKG Authored Date: * Event Display: EKG Authored Date: Note * Event Display: Non [facility] Lab Results Authored Date: * Event Display: Non BH Lab Results Authored Date: * Event Display: Non BH Lab Results Authored Date: * Event Display: Radiology Result Scanned Authored Date: * Event Display: Radiology Result Scanned Authored Date: * Event Display: Radiology Result Scanned Authored Date: * Jennifer Thornton: PERFORM Event Display: Cardiovascular Results Scanned Authored Date: * Jennifer Thornton: SIGN, VERIFY, PERFORM Event Display: Patient Education/Instruction Authored Date: [facility] So Trace Mendoza Clinical Summary Person [...] care provider, you may find a [facility] [place] [facility] provider by calling [facility] [employer] Link at [phone]. Patient Education Information Follow-up Details: Patient Education Material: Patient Care team information Care Team Personnel Name: Leticia Alcantara RN Position: [facility] Onco RN Member Role: Primary Care Nurse Name: Juliet Hay NP Position: [facility] Associate Professional Member Role: Primary Care Nurse Name: Jovana Pal NP Position: [facility] Associate Professional Member Role: PCP Address: Address: [address] [place], [place] [address], [place] [address]- Name: Michaela Castillo RN Position: S RN Member Role: Primary Care Nurse Name: Stacy Garcia RN Position: S RN Member Role: Primary Care Nurse Name: María Elena Dixon RN Position: S RN Member Role: Primary Care Nurse Care Team Related Persons Name: TORIN ISAURO Address: [address] [address] Name: AGNIESZKA MAURER Address: [address] [address]
--- OUTSIDE RECORDS SUMMARY | 2024-02-23 12:18 | XMS_ITS | Continuity of Care Document ---
Author Organization [facility] Trace Sae lt Address [address] [place] [address]- Care Team Providers Care Tool Polisher Name Role Phone Edmond BRANDT, Wesley Kaur Primary Care Physician Encounter [facility] Date(s): 08/09/21 - 09/08/21 [facility] Adult [address] [place] [address]- Allergies, Adverse Reactions, Alerts Substance Reaction Severity [...] Given 1Result Comment: [facility]: [id number] 2Result Comment: [facility]: 46386-030-25 3Result Comment: [07/11/2017] [facility]; 87737-512-40 HIGH DOSE 4Admin Note: H1N1 5Admin Note: [...] 14:32:00 EDT, Route to Pharmacy Electronically, [facility], Partial fill upon patient request [...] 1 Refills, Maintenance, 07/26/21 14:47:00 EDT, [facility], 167.6, cm, 07/26/21 14:38:00 EDT, [...]
--- OUTSIDE RECORDS SUMMARY | 2024-02-23 12:18 | XMS_ITS | Continuity of Care Document ---
Author Organization [facility] Trace Sae lt Address [address] [place] [address]- Care Team Providers Care Gym Supervisor Name Role Phone Edmond BRANDT, Wesley Kaur Primary Care Physician [phone] Encounter [facility] Date(s): 09/07/21 - 10/07/21 [facility] Adult [address] [place] [address]- Allergies, Adverse Reactions, Alerts Substance Reaction Severity [...] 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 Given 1Result Comment: [facility]: 8675-4856-84 2Result Comment: [facility]: 72163-675-60 3Result Comment: [07/11/2017] [facility]; 16682-486-21 HIGH DOSE 4Admin Note: H1N1 5Admin Note: recieved elsewhere Medications amLODIPine 5 mg oral tablet 1 tablet = 5 mg, By Mouth, Daily, # 90 tablet, 1 Refills, Maintenance, 06/02/21 17:26:00 EDT, [facility], 167.6, cm, 02/24/21 14:50:00 EDT, Height, 107.9, kg, 02/24/21 13:39:00 EDT, Dry Weight Start Date: 06/02/21 Status: Ordered atorvastatin 40 mg oral tablet 1 tablet, By Mouth, Daily, # 90 tablet, 1 Refills, [facility], 167.6, cm, 08/19/21 11:48:00 EST, [...] 02/22/21 14:32:00 EDT, Route to Pharmacy Electronically, [facility], Partial fill upon patient request [...] tablet, 0 Refills, Maintenance, 09/20/21 11:54:00 EST, [facility], 167.6, cm, 08/19/21 11:48:00 [...]
--- OUTSIDE RECORDS SUMMARY | 2024-02-23 12:18 | XMS_ITS | Continuity of Care Document ---
Author Organization [facility] Sae lt Address [address] [place] [address]- Care Team Providers Care Golf Coach Name Role Phone Kae DIRECTOR OF EDUCATION, Jovana Ghosh Primary Care Physician [phone] Encounter [facility] Date(s): 10/11/22 - 11/10/22 [facility] Adult [address] [place] [address]- Allergies, Adverse Reactions, Alerts Substance Reaction Severity Status ciprofloxacin diarrhea Active codeine nausea Active Macrobid GI upset Active Spiriva 1 Active baclofen SEVERE GI UPSET Active 1urinary Immunizations Given and Recorded Vaccine Date Status Refusal Reason [id number] 12y+ bivalent booster vax 1 08/12/22 Given [...] 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 Given 1Result Comment: [facility]-[id number] left lower deltoid 2Result Comment: [facility]-[id number] left upper deltoid 3Result Comment: [facility]: 52394-728-84 4Result Comment: [07/11/2017] [facility]; 91837-035-76 HIGH DOSE 5Result Comment: [facility]: [id number] 6Admin Note: H1N1 7Admin Note: recieved elsewhere Medications amLODIPine 5 mg oral tablet 1 tablet, By Mouth, Daily, # 90 tablet, 3 Refills, Maintenance, 07/27/22 11:13:00 EDT, [facility], 167.6, cm, 05/10/22 16:16:00 EDT, Height, 97.8, kg, 04/29/22 14:30:00 EDT, Dry Weight Start Date: 07/27/22 Status: Ordered atorvastatin 40 mg oral tablet 1 tablet, By Mouth, Daily, # 90 tablet, 1 Refills, Maintenance, 08/26/22 9:23:00 EST, [facility], 167.6, cm, 08/12/22 11:12:00 EST, Height, 97.8, kg, 04/29/22 14:30:00 EDT, Dry Weight Start Date: 08/26/22 Status: Ordered betamethasone topical dipropionate 0.05% cream 1 application, Topically, 2 times a day, # 15 Gm, 0 Refills, Maintenance, 09/30/22 15:16:00 EST, Cream, [facility], Partial fill upon [...] EDT, Route to Pharmacy Electronically, [facility], 167.6, cm, 03/25/22 7:30:... Start Date: 03/25/22 Status: Ordered FLUoxetine 20 mg oral capsule 20 mg, 1, capsule, By Mouth, Daily, # 90 capsule, Refills 3, Tot. Refills 3, Maintenance, 08/18/22 8:26:00 EST, Route to Pharmacy Electronically, [facility], Partial fill upon patient [...] 1 Refills, Maintenance, 10/10/22 11:08:00 EST, Tablet, [facility] # [facility], Partial fill upon patient [...] Team Personnel Name: Leticia Alcantara RN Position: [facility] Onco RN Member Role: Primary Care Nurse Name: Juliet Hay NP Position: [facility] Associate Professional Member Role: Primary Care Nurse Name: Jovana Pal NP Position: [facility] Associate Professional Member Role: PCP Address: Address: [address] [place] [address]- Name: Michaela Castillo RN Position: S RN Member Role: Primary Care Nurse Name: Stacy Garcia RN Position: S RN Member Role: Primary Care Nurse Name: María Elena Dixon RN Position: S RN Member Role: Primary Care Nurse Care Team Related Persons Name: ISAURO HARKINS Address: [address] [address] Name: AGNIESZKA MAURER Address: [address] [address]
--- OUTSIDE RECORDS SUMMARY | 2024-02-23 12:18 | XMS_ITS | Continuity of Care Document ---
Author Organization [facility] Sae Address [address] [place] [id number]- Care Team Providers Care Drying Machine Operator Package Yarns Name Role Phone Jovana Pal NP Primary Care Physician Encounter [facility] Date(s): 02/02/24 - 02/09/24 [facility] Adult [address] [place] [address]- Encounter Diagnosis IBS (irritable bowel syndrome)(Discharge Diagnosis) - 02/03/24 Osteoporosis(Discharge Diagnosis) - 02/03/24 Chronic renal disease, stage 3, moderately decreased glomerular filtration rate (GFR) between 30-59mL/min/1.73 square meter(Discharge Diagnosis) - 02/03/24 Depression, major, recurrent, mild(Discharge Diagnosis) - 02/03/24 Hypertension(Discharge Diagnosis) - 02/03/24 Severe obesity(Discharge Diagnosis) - 02/03/24 Trochanteric bursitis(Discharge Diagnosis) - 02/03/24 Generalized anxiety disorder with panic attacks(Discharge Diagnosis) - 02/03/24 Attending Physician: Jovana Pal NP Allergies, Adverse [...] pneumococcal 20-valent conjugate vaccine 5 02/13/23 Given [id number] 12y+ bivalent booster vax 6 08/12/22 Given [...] 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 Given 1Result Comment: [id number] 2Result Comment: [facility]-[id number] left upper deltoid 3Result Comment: [facility]: [id number] 4Result Comment: [07/11/2017] [facility]; 88886-782-91 HIGH DOSE 5Result Comment: [id number] 6Result Comment: [facility]-[id number] left lower deltoid 7Result Comment: [facility]: [id number] 8Admin Note: H1N1 9Admin Note: recieved elsewhere [...] 02/02/24 14:30:00 EDT, Route to Pharmacy Electronically, [facility], 167.6, cm, 02/02/24 13:57:00EDT, Height, [...] Refills, Maintenance, 11/10/23 9:15:00 EST, Tablet, [facility], Partial fill upon patient request if the prescription is for... Start Date: 11/10/23 Status: Ordered omeprazole 20 mg oral enteric coated capsule 1 capsule, By Mouth, Daily, # 90 capsule, 3 Refills, 05/22/23 10:49:00 EDT, [facility], 167.6, cm, 03/23/23 10:29:00 EDT, [...] 12/08/23 10:47:00 EST, Route to Pharmacy Electronically, [facility], 167.6, cm, 09/04/23 14:35:00 EST, [...] Effective Dates Health Status Clinical Service Informant IBS (irritable bowel syndrome) Discharge Diagnosis 02/03/24 Osteoporosis Discharge Diagnosis 02/03/24 Chronic renal disease, stage 3, moderately decreased glomerular filtration rate (GFR) between 30-59 mL/min/1.73 square meter Discharge Diagnosis 02/03/24 Depression, major, recurrent, mild Discharge Diagnosis 02/03/24 Hypertension Discharge Diagnosis 02/03/24 Severe obesity Discharge Diagnosis 02/03/24 Trochanteric bursitis Discharge Diagnosis 02/03/24 Generalized anxiety disorder with panic attacks Discharge Diagnosis 02/03/24 Vital Signs Most recent to oldest [Reference Range]: 1 Height 167.6 cm (02/02/24 1:57 PM) Weight 115.5 kg (02/02/24 1:57 PM) Oxygen Saturation [94-100 %] 98 % (02/02/24 1:57 PM) Pulse Rate [55-90 bpm] 82 bpm (02/02/24 1:57 PM) Body Mass Index [18.5-24.99 kg/m2] 41.12 kg/m2 *>HHI* (02/02/24 1:57 PM) Blood Pressure [90-138/55-84 mm Hg] 132/ 75mm Hg (02/02/24 1:57 PM) Temperature [96.8-100.4 DegF] 97.9 DegF (02/02/24 1:57 PM) Mode of Delivery (Oxygen) Room air (02/02/24 1:57 PM) Blood pressure sites Arm, right (02/02/24 1:57 PM) Temperature Route Oral (02/02/24 1:57 PM) Weight Obtained Via Standing scale (02/02/24 1:57 PM) Social History Social History Type Response Smoking Status Never smoker entered on: 10/09/13 Sex Patient Care team information Care Team Personnel Name: Satnam BUNDY, Juliet Snyder Position: [facility] PCO Associate Professional Member Role: Primary Care Nurse Name: Jovana Pal NP Position: [facility] Associate Professional Member Role: PCP Address: Address: [address] [place] [address]- Name: Mcihaela Castillo RN Position: [facility] RN Member Role: Primary Care Nurse Name: Leticia Barth RN Position: [facility] Onco RN Member Role: Primary Care Nurse Name: Stacy Garcia RN Position: [facility] Nurse Member Role: Primary Care Nurse Name: María Elena Dixon RN Position: [facility] RN Member Role: Primary Care Nurse Care Team Related Persons Name: TORIN ISAURO Address: [address] [address] Name: AGNIESZKA MAURER Address: [address] [address]
--- OUTSIDE RECORDS SUMMARY | 2024-02-23 12:18 | XMS_ITS | Continuity of Care Document ---
Author Organization [facility] Trace Sae lt Address [address] [place] [address]- Care Team Providers Care Heavy Equipment Rental Associate Name Role Phone Kae CANDY MAKER, Jovana Ghosh Primary Care Physician [phone] Encounter [facility] Date(s): 09/23/22 - 10/23/22 [facility] Adult [address] [place] [address]- Allergies, Adverse Reactions, Alerts Substance Reaction Severity Status ciprofloxacin diarrhea Active codeine nausea Active baclofen SEVERE GI UPSET Active Macrobid GI upset Active Spiriva 1 Active 1urinary Immunizations Given and Recorded Vaccine Date Status Refusal Reason [id number] 12y+ bivalent booster vax 1 08/12/22 Given [...] (PPV23) (oldterm) 12/01/01 Given 1Result Comment: [facility][NOTE 3]-[id number] left lower deltoid 2Result Comment: [facility] 3]-[id number] left upper deltoid 3Result Comment: [facility][NOTE 3]: [id number] 4Result Comment: [07/11/2017] [facility][NOTE 3]; 40588-199-11 HIGH DOSE 5Result Comment: [facility][NOTE 3]: [id number] 6Admin Note: H1N1 7Admin Note: recieved elsewhere Medications amLODIPine 5 mg oral tablet 1 tablet, By Mouth, Daily, # 90 tablet, 3 Refills, Maintenance, 07/27/22 11:13:00 EDT, [facility], 167.6, cm, 05/10/22 16:16:00 EDT, Height, 97.8, kg, 04/29/22 14:30:00 EDT, Dry Weight Start Date: 07/27/22 Status: Ordered atorvastatin 40 mg oral tablet 1 tablet, By Mouth, Daily, # 90 tablet, 1 Refills, Maintenance, 08/26/22 9:23:00 EST, [facility], 167.6, cm, 08/12/22 11:12:00 EST, Height, 97.8, kg, 04/29/22 14:30:00 EDT, Dry Weight Start Date: 08/26/22 Status: Ordered betamethasone topical dipropionate 0.05% cream 1 application, Topically, 2 times a day, # 15 Gm, 0 Refills, Maintenance, 09/30/22 15:16:00 EST, Cream, [facility], Partial fill [...] EDT, Route to Pharmacy Electronically, [facility], 167.6, cm, 03/25/22 7:30:... Start Date: 03/25/22 Status: Ordered FLUoxetine 20 mg oral capsule 20 mg, 1, capsule, By Mouth, Daily, # 90 capsule, Refills 3, Tot. Refills 3, Maintenance, 08/18/22 8:26:00 EST, Route to Pharmacy Electronically, [facility], Partial fill upon patient [...] 1 Refills, Maintenance, 10/10/22 11:08:00 EST, Tablet, [facility] # [facility], Partial fill upon patient [...] Team Personnel Name: Leticia Alcantara RN Position: [facility] Onco RN Member Role: Primary Care Nurse Name: Juliet Hay NP Position: [facility] PCO Associate Professional Member Role: Primary Care Nurse Name: Jovana Pal NP Position: [facility] PCO Associate Professional Member Role: PCP Address: Address: [address] [place] [address]- Name: Michaela Castillo RN Position: S RN Member Role: Primary Care Nurse Name: Stacy Garcia RN Position: S RN Member Role: Primary Care Nurse Name: María Elena Dixon RN Position: S RN Member Role: Primary Care Nurse Care Team Related Persons Name: ISAURO HARKINS Address: [address] [address] Name: AGNIESZKA MAURER Address: [address] [address]
--- OUTSIDE RECORDS SUMMARY | 2024-02-23 12:18 | XMS_ITS | Continuity of Care Document ---
Author Organization [facility] Sae lt Address [address] [place] [address]- Care Team Providers Care Senior Storage Administrator Name Role Phone Kae FREIGHT RATE ANALYST, Jovana Ghosh Primary Care Physician Encounter [facility] Date(s): 06/08/23 - 07/08/23 [facility] Adult [address] [place] [address]- Allergies, Adverse Reactions, Alerts Substance Reaction Severity Status ciprofloxacin diarrhea Active codeine nausea Active baclofen SEVERE GI UPSET Active Spiriva 1 Active Macrobid GI upset Active 1urinary Immunizations Given and Recorded Vaccine Date Status Refusal Reason pneumococcal 20-valent conjugate vaccine 1 02/13/23 Given [id number] 12y+ bivalent booster vax 2 08/12/22 Given [...] 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 Given 1Result Comment: [id number] 2Result Comment: [facility]-[id number] left lower deltoid 3Result Comment: [facility]-[id number] left upper deltoid 4Result Comment: [facility]: [id number] 5Result Comment: [07/11/2017] [facility]; 10758-371-02 HIGH DOSE 6Result Comment: [facility]: [id number] 7Admin Note: H1N1 8Admin Note: recieved elsewhere Medications amLODIPine 5 mg oral tablet 1 tablet, By Mouth, Daily, # 90 tablet, 3 Refills, Maintenance, 07/27/22 11:13:00 EDT, [facility], 167.6, cm, 05/10/22 16:16:00 EDT, Height, 97.8, kg, 04/29/22 14:30:00 EDT, Dry Weight Start Date: 07/27/22 Status: Ordered atorvastatin 40 mg oral tablet 1 tablet, By Mouth, Daily, # 90 tablet, 1 Refills, Maintenance, 02/22/23 18:23:00 EDT, [facility], 167.6, cm, 02/13/23 15:04:00 EDT, [...] 05/17/23 13:17:00 EDT, Route to Pharmacy Electronically, [facility], 167.6, cm, 03/23/23 10:29:00 EDT, [...] Dry Weight Start Date: 05/22/23 Status: Ordered Reclast 5 mg/100 mL intravenous [...] 14:31:00 EST, Route to Pharmacy Electronically, [facility], Partial fill upon patient request [...] Active Mitral insufficiency echo nov 2021 Confirmed 3/13/22 Active Osteoarthritis of left knee Confirmed Active [...] Team Personnel Name: Juliet Hay NP Position: [facility] PCO Associate Professional Member Role: Primary Care Nurse Name: Jovana Pal NP Position: [facility] Associate Professional Member Role: PCP Address: Address: [address] [place] [address]- Name: Michaela Castillo RN Position: [facility] RN Member Role: Primary Care Nurse Name: Leticia Barth RN Position: [facility] Onco RN Member Role: Primary Care Nurse Name: Stacy Garcia RN Position: [facility] SN RN Member Role: Primary Care Nurse Name: María Elena Dixon RN Position: S RN Member Role: Primary Care Nurse Care Team Related Persons Name: ISAURO HARKINS Address: [address] [address] Name: AGNIESZKA MAURER Address: [address] [address]
--- OUTSIDE RECORDS SUMMARY | 2024-02-23 12:18 | XMS_ITS | Continuity of Care Document ---
Author Organization [facility] Sae lt Address [address] [place] [address]- Care Team Providers Care Distribution Center Manager Name Role Phone Edmond BRANDT, Wesley Kaur Primary Care Physician [phone] [place] [facility] [place] 10/05/21 - 11/04/21 [facility] Adult [address] [place] [address]- Attending Physician: Rosamaria Kitchen Referring Physician: Elena Dowd Allergies, Adverse Reactions, [...] 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 Given 1Result Comment: [facility]: 5273-9982-85 2Result Comment: [facility]: 20988-798-95 3Result Comment: [07/11/2017] [facility]; 86456-495-18 HIGH DOSE 4Admin Note: H1N1 5Admin Note: [...] Bone density scan 5 01/30/08 [address] [place] [address] emergency room August 21, 2021 white count [...] EKG normal sinus rhythm rate 75 normal MD QRS QT. 2tear medial meniscus,bakers cyst 3nad 4h hernia,gastritis 5minor ostepenia Social History Social History Type Response Smoking Status Never smoker entered on: 10/09/13 Sex
--- OUTSIDE RECORDS SUMMARY | 2024-02-23 12:18 | XMS_ITS | Continuity of Care Document ---
Author Organization [facility] Trace Sae lt Address [address] [place] [address]- Care Team Providers Care Financial Assistant Name Role Phone Edmond BRANDT, Wesley Kaur Primary Care Physician Encounter [facility] Date(s): 08/27/21 - 09/26/21 [facility] Adult [address] [place] [address]- Allergies, Adverse Reactions, Alerts Substance Reaction Severity [...] (PPV23) (oldterm) 12/01/01 Given 1Result Comment: [facility]: [id number] 2Result Comment: [facility]: [id number] 3Result Comment: [07/11/2017] [facility]; 74579-091-55 HIGH DOSE 4Admin Note: H1N1 5Admin Note: [...]
--- OUTSIDE RECORDS SUMMARY | 2024-02-23 12:18 | XMS_ITS | Continuity of Care Document ---
Author Organization [facility] Trace Sae lt Address [address] [place] [address]- Care Team Providers Care Fiber Worker Name Role Phone Wesley Pruitt MD Primary Care Physician [place] [facility] [place](s): 08/19/21 - 08/26/21 [facility] Adult [address] [place] [address]- Encounter Diagnosis Abdominal cramping(Discharge Diagnosis) - 08/19/21 Hypertension(Discharge Diagnosis) - 08/19/21 IBS (irritable bowel syndrome)(Discharge Diagnosis) - 08/19/21 Attending Physician: Wesley Pruitt MD Allergies, Adverse [...] (PPV23) (oldterm) 12/01/01 Given 1Result Comment: [facility]: [id number] 2Result Comment: [facility]: 62361-341-70 3Result Comment: [07/11/2017] [facility]; 13746-750-87 HIGH DOSE 4Admin Note: H1N1 5Admin Note: [...] Refills, Soft Stop, 03/04/21 12:12:00 EDT, [facility], 167.6, cm, 02/24/21 14:50:00 EDT, [...] 14:32:00 EDT, Route to Pharmacy Electronically, [facility], Partial fill upon patient request if the prescription is for a schedule I... Start Date: 02/22/21 Status: Ordered fluticasone 50 mcg/inh nasal spray 2 sprays, Nasal, Daily, in each nostril use opposite hnad for each nostril, # 16 Gm, 1 Refills, Maintenance, 01/09/21 10:28:00 EDT, [facility], 2 sprays Nasal Daily,Instr:in each [...] 1 Refills, Maintenance, 07/26/21 14:47:00 EDT, [facility], 167.6, cm, 07/26/21 14:38:00 EDT, [...] tablet, Refills 3, Tot. Refills 3, Maintenance, 08/20/21 10:28:00 EST, Route to Pharmacy Electronically, [facility], Partial fill upon patient request if the prescription is for a schedule II opioid . Start Date: 08/20/21 Status: Ordered Voltaren 1% topical gel = 2 Gm, Topically, 4 times a day, # 100 Gm, 0 Refills, Maintenance, 05/07/20 9:13:00 EDT, Gel, [facility] # [facility], 2 Gm [...] class II(Confirmed) Active Obesity (BMI 30-39.9)(Confirmed) Active Osteoporosis endocrinology [...] Effective Dates Health Status Clinical Service Informant Abdominal cramping Discharge Diagnosis 08/19/21 Hypertension Discharge Diagnosis 08/19/21 IBS (irritable bowel syndrome) Discharge Diagnosis 08/19/21 Vital Signs Most recent to oldest [Reference Range]: 1 2 Height 167.6 cm (08/19/21 11:48 AM) 167.6 cm (08/19/21 11:34 AM) Weight 104.5 kg (08/19/21 11:34 AM) Oxygen Saturation [94-100 %] 98 % (08/19/21 11:34 AM) Pulse Rate [55-90 bpm] 84 bpm (08/19/21 11:34 AM) Body Mass Index [18.5-24.99] 37.2 *>HHI* (08/19/21 11:34 AM) Blood Pressure [90-138/55-84 mm Hg] 124/ 80mm Hg (08/19/21 11:34 AM) Respiratory Rate [16-30 br/min] 16 br/mi n (08/19/21 11:34 AM) Temperature [96.8-100.4 DegF] 97.6 DegF (08/19/21 11:48 AM) Blood pressure sites Arm, left (08/19/21 11:34 AM) Social History Social History Type Response Smoking Status Never smoker entered on: 10/09/13 Sex
--- OUTSIDE RECORDS SUMMARY | 2024-02-23 12:18 | XMS_ITS | Continuity of Care Document ---
Author Organization [facility] Sae lt Address [address] [place] [address]- Care Team Providers Care Movers Name Role Phone Edmond BRANDT, Wesley Kaur Primary Care Physician [place] [facility]23[place] 12[place]23[place]21 [facility] Adult [address] [place] [address]- Allergies, Adverse Reactions, Alerts Substance Reaction Severity [...] 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 Given 1Result Comment: [facility]: [id number] 2Result Comment: [facility]: [id number] 3Result Comment: [07/11/2017] [facility]; 46268-819-78 HIGH DOSE 4Admin Note: H1N1 5Admin Note: [...] 14:32:00 EDT, Route to Pharmacy Electronically, [facility], Partial fill upon patient request if the prescription is for a schedule I... Start Date: 02/22/21 Status: Ordered fluticasone 50 mcg/inh nasal spray 2 sprays, Nasal, Daily, in each nostril use opposite hnad for each nostril, # 16 Gm, 1 Refills, Maintenance, 10/28/21 15:32:00 EST, [facility], 2 sprays Nasal Daily,Instr:in each [...] tablet, 0 Refills, Maintenance, 09/20/21 11:54:00 EST, [facility], 167.6, cm, 08/19/21 11:48:00 EST, Height, 107.9, kg, 02/24/21 13:39:00 EDT, Dry Weight Start Date: 09/20/21 Status: Ordered omeprazole 20 mg oral enteric coated capsule 1 capsule, By Mouth, Daily, # 90 capsule, 0 Refills, [facility], 167.6, cm, 08/19/21 11:48:00 EST, [...]
--- OUTSIDE RECORDS SUMMARY | 2024-02-23 12:18 | XMS_ITS | Continuity of Care Document ---
Author Organization [facility] Trace Sae lt Address [address] [place] [address]- Care Team Providers Care Right Of Way Appraiser Name Role Phone Edmond BRANDT, Wesley Kaur Primary Care Physician Encounter [facility] Date(s): 10/23/20 - 11/22/20 [facility] Adult [address] [place] [address]- Allergies, Adverse Reactions, Alerts Substance Reaction Severity [...] (PPV23) (oldterm) 12/01/01 Given 1Result Comment: [07/11/2017] [facility]; 52785-511-64 HIGH DOSE 2Admin Note: H1N1 3Admin Note: recieved elsewhere Medications acetaminophen 325 mg oral tablet 650 mg, By Mouth, Every 6 hours, Refills 0, Maintenance, 09/19/19 11:55:00 EST Start Date: 09/19/19 Status: Ordered amLODIPine 5 mg oral tablet 5 mg, 1, tablet, By Mouth, Daily, # 90 tablet, Refills 3, Tot. Refills 3, Maintenance, 06/29/20 14:01:00 EDT, Route to Pharmacy Electronically, [facility], 167.6, cm, 06/16/20 10:40:00 EDT, Height, 101.2, kg, 09/17/19 10:13:00 EST,... Start Date: 06/29/20 Status: Ordered atorvastatin 40 mg oral tablet 1 tablet = 40 mg, By Mouth, Daily, # 90 tablet, 1 Refills, Soft Stop, 09/07/20 14:24:00 EST, [facility], 167.6, cm, 08/19/20 7:30:00 EST, [...] 05/07/20 9:11:00 EDT, Route to Pharmacy Electronically, [facility], 167.6, cm, 05/07/20 8:56:00 EDT, Height, 101.2, kg, 09/17/19 10:13:00 EST,... Start Date: 05/07/20 Status: Ordered fluticasone 50 mcg/inh nasal spray 2 sprays, Nasal, Daily, in each nostril use opposite hnad for each nostril, # 16 Gm, 1 Refills, Maintenance, 10/23/20 9:37:00 EST, [facility], 2 sprays Nasal Daily,Instr:in each [...] 1 Refills, Maintenance, 07/13/20 16:01:00 EDT, [facility], 167.6, cm, 06/30/20 9:53:00 EDT, Height, 101.2, kg, 09/17/19 10:13:00 EST, Dry Weight Start Date: 07/13/20 Status: Ordered omeprazole 20 mg oral enteric coated capsule 1 capsule = 20 mg, By Mouth, Daily, # 90 capsule, 3 Refills, Maintenance, 08/26/20 13:24:00 EST, ECCapsule, [facility], 167.6, cm, 08/19/20 7:30:00 EST, [...]
--- OUTSIDE RECORDS SUMMARY | 2024-02-23 12:18 | XMS_ITS | Continuity of Care Document ---
Author Organization [facility] Sae lt Address [address] [place] [address]- Care Team Providers Care Furnace Reliner Name Role Phone Kae BODY ART TECHNICIAN, Jovana Ghosh Primary Care Physician [facility]counter [facility] Date(s): 07/29/22 - 08/28/22 [facility] Adult [address] [place] [address]- Allergies, Adverse Reactions, Alerts Substance Reaction Severity Status ciprofloxacin diarrhea Active codeine nausea Active baclofen SEVERE GI UPSET Active Macrobid GI upset Active Spiriva 1 Active 1urinary Immunizations Given and Recorded Vaccine Date Status Refusal Reason [id number] 12y+ bivalent booster vax 1 08/12/22 Given [...] Given 1Result Comment: [facility]-[id number] left lower deltoid 2Result Comment: [facility]-[id number] left upper deltoid 3Result Comment: [facility]: 86645-914-01 4Result Comment: [07/11/2017] [facility]; 19643-772-74 HIGH DOSE 5Result Comment: [facility]: 5412-8072-91 6Admin Note: H1N1 7Admin Note: recieved elsewhere Medications amLODIPine 5 mg oral tablet 1 tablet, By Mouth, Daily, # 90 tablet, 3 Refills, Maintenance, 07/27/22 11:13:00 EDT, [facility], 167.6, cm, 05/10/22 16:16:00 EDT, Height, 97.8, kg, 04/29/22 14:30:00 EDT, Dry Weight Start Date: 07/27/22 Status: Ordered atorvastatin 40 mg oral tablet 1 tablet, By Mouth, Daily, # 90 tablet, 1 Refills, Maintenance, 08/26/22 9:23:00 EST, [facility], 167.6, cm, 08/12/22 11:12:00 EST, Height, 97.8, kg, 04/29/22 14:30:00 EDT, Dry Weight Start Date: 08/26/22 Status: Ordered betamethasone topical dipropionate 0.05% cream 1 application, Topically, 2 times a day, # 15 Gm, 0 Refills, Maintenance, 05/10/22 16:48:00 EDT, Cream, [facility], Partial fill [...] EDT, Route to Pharmacy Electronically, [facility], 167.6, cm, 03/25/22 7:30:... Start Date: 03/25/22 Status: Ordered FLUoxetine 20 mg oral capsule 20 mg, 1, capsule, By Mouth, Daily, # 90 capsule, Refills 3, Tot. Refills 3, Maintenance, 08/18/22 8:26:00 EST, Route to Pharmacy Electronically, [facility] # [facility], Partial fill upon patient [...] 1 Refills, Maintenance, 08/12/22 11:44:00 EST, Tablet, [facility] # [facility], Partial fill upon patient [...] Team Personnel Name: Leticia Alcantara RN Position: [facility] Onco RN Member Role: Primary Care Nurse Name: Juliet Hay NP Position: [facility] Associate Professional Member Role: Primary Care Nurse Name: Jovana Pal NP Position: [facility] Associate Professional Member Role: PCP Address: Address: [address] [place] [id number]- Name: Michaela Castillo RN Position: S RN Member Role: Primary Care Nurse Name: Stacy Garcia RN Position: S RN Member Role: Primary Care Nurse Name: María Elena Dixon RN Position: S RN Member Role: Primary Care Nurse Care Team Related Persons Name: ISAURO HARKINS Address: [address] [address] Name: AGNIESZKA MAURER Address: [address] [address]
--- OUTSIDE RECORDS SUMMARY | 2024-02-23 12:18 | XMS_ITS | Continuity of Care Document ---
Author Organization [facility] Sae lt Address [address] [place] [address]- Care Team Providers Care Sap Enterprise Portal Consultant Name Role Phone Kae COMPUTER ANIMATOR, Jovana Ghosh Primary Care Physician [facility]counter [facility] Date(s): 05/08/23 - 06/07/23 [facility] Adult [address] [place] [address]- Allergies, Adverse Reactions, Alerts Substance Reaction Severity Status ciprofloxacin diarrhea Active codeine nausea Active baclofen SEVERE GI UPSET Active Macrobid GI upset Active Spiriva 1 Active 1urinary Immunizations Given and Recorded Vaccine Date Status Refusal Reason pneumococcal 20-valent conjugate vaccine 1 02/13/23 Given [id number] 12y+ bivalent booster vax 2 08/12/22 Given [...] 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 Given 1Result Comment: [id number] 2Result Comment: [facility]-[id number] left lower deltoid 3Result Comment: [facility]-[id number] left upper deltoid 4Result Comment: [facility]: [id number] 5Result Comment: [07/11/2017] [facility]; [id number] HIGH DOSE 6Result Comment: [facility]: [id number] 7Admin Note: H1N1 8Admin Note: recieved elsewhere Medications amLODIPine 5 mg oral tablet 1 tablet, By Mouth, Daily, # 90 tablet, 3 Refills, Maintenance, 07/27/22 11:13:00 EDT, [facility], 167.6, cm, 05/10/22 16:16:00 EDT, Height, 97.8, kg, 04/29/22 14:30:00 EDT, Dry Weight Start Date: 07/27/22 Status: Ordered atorvastatin 40 mg oral tablet 1 tablet, By Mouth, Daily, # 90 tablet, 1 Refills, Maintenance, 02/22/23 18:23:00 EDT, [facility], 167.6, cm, 02/13/23 15:04:00 EDT, [...] 13:17:00 EDT, Route to Pharmacy Electronically, [facility], 167.6, cm, 03/23/23 10:29:00 EDT, [...] 06/06/23 7:52:00 EDT, Route to Pharmacy Electronically, [facility], 167.6, cm, 03/23/23 10:29:0... [...] Associate Professional Member Role: PCP Address: Address: [address] [place] [address]- Name: Michaela Castillo RN Position: S RN [...] Team Related Persons Name: ISAURO HARKINS Address: [address] [address] Name: AGNIESZKA MAURER Address: [address] [address]
--- OUTSIDE RECORDS SUMMARY | 2024-02-23 12:19 | XMS_ITS | Continuity of Care Document ---
Author Organization [facility] Sae lt Address [address] [place] [address]- Care Team Providers Care Electrodynamicist Name Role Phone Edmond BRANDT, Wesley Kaur Primary Care Physician [facility] Date[facility]s): 04/14/21 - 05/14/21 [facility] Adult [address] [place] [address]- Allergies, Adverse Reactions, Alerts Substance Reaction Severity [...] (PPV23) (oldterm) 12/01/01 Given 1Result Comment: [07/11/2017] [facility]; 91133-790-57 HIGH DOSE 2Admin Note: H1N1 3Admin Note: [...] Refills, Soft Stop, 03/04/21 12:12:00 EDT, [facility], 167.6, cm, 02/24/21 14:50:00 EDT, [...] 14:32:00 EDT, Route to Pharmacy Electronically, [facility], Partial fill upon patient request [...] 0 Refills, Maintenance, 04/14/21 11:41:00 EDT, [facility], 167.6, cm, 02/24/21 14:50:00 EDT, Height, 107.9, kg, 02/24/2113:39:00 EDT, Dry Weight Start Date: 04/14/21 Status: Ordered omeprazole 20 mg oral enteric coated capsule 1 capsule = 20 mg, By Mouth, Daily, # 90 capsule, 3 Refills, Maintenance, 08/26/20 13:24:00 EST, ECCapsule, [facility], 167.6, cm, 08/19/20 7:30:00 EST, [...]
--- OUTSIDE RECORDS SUMMARY | 2024-02-23 12:19 | XMS_ITS | Continuity of Care Document ---
Author Organization [facility] Address [address] [place] [address]- Care Team Providers Care Tennis Ball Coverer Hand Name Role Phone Kae CONSTRUCTION PROJECT ADMINISTRATOR, Jovana Ghosh Primary Care Physician [phone] Encounter [facility] Date(s): 09/05/22 - 10/05/22 [facility] [address] [place] [address]- Allergies, Adverse Reactions, Alerts Substance Reaction Severity Status ciprofloxacin diarrhea Active codeine nausea Active baclofen SEVERE GI UPSET Active Macrobid GI upset Active Spiriva 1 Active 1urinary Immunizations Given and Recorded Vaccine Date Status Refusal Reason [id number] 12y+ bivalent booster vax 1 08/12/22 Given [...] (oldterm) 12/01/01 Given 1Result Comment: [facility]-[id number] left lower deltoid 2Result Comment: [facility]-[id number] left upper deltoid 3Result Comment: [facility]: [id number] 4Result Comment: [07/11/2017] [facility]; 28483-431-04 HIGH DOSE 5Result Comment: [facility]: [id number] 6Admin Note: H1N1 7Admin Note: recieved elsewhere Medications amLODIPine 5 mg oral tablet 1 tablet, By Mouth, Daily, # 90 tablet, 3 Refills, Maintenance, 07/27/22 11:13:00 EDT, [facility], 167.6, cm, 05/10/22 16:16:00 EDT, [...] 0 Refills, Maintenance, 09/30/22 15:16:00 EST, Cream, [facility], Partial [...] 03/25/22 8:06:00 EDT, Route to Pharmacy Electronically, [facility], 167.6, cm, 03/25/22 7:30:... Start Date: 03/25/22 Status: Ordered FLUoxetine 20 mg oral capsule 20 mg, 1, capsule, By Mouth, Daily, # 90 capsule, Refills 3, Tot. Refills 3, Maintenance, 08/18/22 8:26:00 EST, Route to Pharmacy Electronically, [facility], Partial fill upon patient [...] 1 Refills, Maintenance, 08/12/22 11:44:00 EST, Tablet, [facility] # [facility], Partial fill upon patient [...] Team Personnel Name: Leticia Alcantara RN Position: [facility] Onco RN Member Role: Primary Care Nurse Name: Juliet Hay NP Position: [facility] PCO Associate Professional Member Role: Primary Care Nurse Name: Jovana Pal NP Position: [facility] Associate Professional Member Role: PCP Address: Address: [address] [place] [address]- Name: Michaela Castillo RN Position: S RN Member Role: Primary Care Nurse Name: Stacy Garcia RN Position: S RN Member Role: Primary Care Nurse Name: María Elena Dixon RN Position: S RN Member Role: Primary Care Nurse Care Team Related Persons Name: ISAURO HARKINS Address: [address] [address] Name: AGNIESZKA MAURER Address: [address] [address]
--- OUTSIDE RECORDS SUMMARY | 2024-02-23 12:19 | XMS_ITS | Continuity of Care Document ---
Author Organization [facility] Address [address] [facility] [place] [address]- Care Team Providers Care Licensing Coordinator Name Role Phone Wesley Pruitt MD Primary Care Physician Encounter 04/01/20 - 04/08/20 [facility] [address], [address] [place] [address]- [phone] Attending Physician: Wesley Pruitt MD Admitting Physician: Wesley Pruitt MD Referring Physician: Wesley Pruitt MD Allergies, [...] (PPV23) (oldterm) 12/01/01 Given 1Result Comment: [07/11/2017] [facility]; 96606-158-83 HIGH DOSE 2Admin Note: H1N1 3Admin Note: [...] 3 Refills, Maintenance, 01/10/20 8:38:00 EDT, [facility], 2 sprays Nasal Daily,Instr:in each [...] 1 Refills, Maintenance, 03/26/20 15:58:00 EDT, [facility], 167.6, cm, 03/10/20 15:20:00 EDT, [...] 10:36:00 EST, Route to Pharmacy Electronically, [facility], 167.6, cm, 09/19/19 7:55:00 EST, [...] Procedure Date Related Diagnosis Body Site Status DEXA of hip and spine oteoprosis 04/01/20 Completed Results Radiology Reports * Exam Date Time Procedure Performing Provider Status 04/01/20 2:35 PM Dexa Bone Density (Axial) Dejuan Mccracken; Carlo (Verified) Notes: (Dexa Bone Density (Axial)) Reason For Exam: Osteopenia RESULT: DEXA BONE DENSITY (AXIAL) Bone Density Report Name: BRIANNA HARKINS Age: 74 Sex: Female Ethnicity: White Date of : 1945 Indication: POSTMENOPAUSAL. Referring Provider: WESLEY PRUITT Study: Bone densitometry was performed. Exam Date: April 01, 2020 Accession number: [id number] Bone Density: Region BMD T-score Z-score Classification AP Spine (L1, L2, L3) 0.769 -2.3 -0.1 Osteopenia Femoral Neck (Left) 0.479 -3.3 -1.4 Osteoporosis Total Hip (Left) 0.503 -3.6 -2.0 Osteoporosis World Health Organization criteria for BMD impression classify patients as: Normal (T-score at or above -1.0), Osteopenia (T-score between -1.0 and -2.5), or Osteoporosis (T-score at or below -2.5). 10-year Fracture Risk: FRAX not reported because: Some T-score at or below -2.5 Previous Exams: Region Exam Age BMD T-score BMD Change BMD Change Date g/cm2 vs Baseline vs Previous AP Spine(L1, L2, L3) 04/01/2020 74 0.769 -2.3 -4.7%* -4.7%* 06/20/2013 67 0.807 -1.9 Total Hip(Left) 04/01/2020 74 0.503 -3.6 -31.5%* -31.5%* 06/20/2013 67 0.733 -1.7 Femoral Neck(Left) 04/01/2020 74 0.479 -3.3 -25.4%* -25.4%* 06/20/2013 67 0.642 -1.9 *Denotes significance at 95% confidence level, LSC for AP Spine = 0.022 g/cm2, LSC for Total Hip = 0.027 g/cm2 Clinical Information Provided by Patient: Has used the following medications: Vitamin D Patient maximum height was 66 Menopause Age: 41 Onset of menses at age 11 Number of children 2 Impression: The patient has osteoporosis as determined by WHO criteria. Based on the results of the patient???s bone density assessment, the risk of future fracture increases approximately two fold for each 1.0 SD decrease in T-score. However, low BMD is not the only risk factor for a future fragility fracture. Other clinical risk factors for osteoporotic fracture should be considered in ascertaining this patient???s future fracture risk including the patient???s age, previous osteoporotic (fragility) fracture, estrogen deficiency/hypogonadism, risk of falling, use of medications implicated in bone loss (glucocorticoids), family history of osteoporotic fracture, diseases and conditions associated with bone loss, low body weight, smoking, high bone turnover, etc. Combining low BMD and other clinical risk factors result in a more precise assessment of future fracture risk. Secondary causes for osteoporosis, such as osteomalacia, other metabolic bone disorders, and diseases and conditions that may contribute to accelerated bone loss may have to be considered depending on the clinical situation. A repeat bone density assessment should be considered in two years. Reported by: Ashish Mandel MD on 04/01/2020 3:35:00 PM. Dictated By: Ashish Mandel MD Dictated Date/Time: 04/01/20 3:36 pm Reviewed By: Ashish Mandel MD Signed By: Ashish Mandel MD Signed Date/Time: 04/01/20 3:36 pm Transcribed By: JULIET Transcribed Date/Time: 04/01/20 3:36 pm Social History Social History Type Response Smoking Status Never smoker entered on: 10/09/13 Sex
--- OUTSIDE RECORDS SUMMARY | 2024-02-23 12:19 | XMS_ITS | Continuity of Care Document ---
Author Organization [facility] Sae Address [address] [place] [address]- Care Team Providers Care Tape Maker Name Role Phone Kae ADMINISTRATIVE DIRECTOR, Jovana Ghosh Primary Care Physician [facility] Date(s): 09/23/22 - 09/30/22 [facility] Adult [address] [place] [address]- Encounter Diagnosis Low back pain(Discharge Diagnosis) - 09/23/22 Attending Physician: Not on Staff, Attending MD Allergies, Adverse Reactions, Alerts Substance Reaction Severity Status ciprofloxacin diarrhea Active codeine nausea Active baclofen SEVERE GI UPSET Active Macrobid GI upset Active Spiriva 1 Active 1urinary Immunizations Given and Recorded Vaccine Date Status Refusal Reason [id number] 12y+ bivalent booster vax 1 08/12/22 Given [...] (PPV23) (oldterm) 12/01/01 Given 1Result Comment: [facility]-[id number] left lower deltoid 2Result Comment: [facility]-[id number] left upper deltoid 3Result Comment: [facility]: [id number] 4Result Comment: [07/11/2017] [facility]; [id number] HIGH DOSE 5Result Comment: [facility]: [id number] 6Admin Note: H1N1 7Admin Note: recieved elsewhere Medications amLODIPine 5 mg oral tablet 1 tablet, By Mouth, Daily, # 90 tablet, 3 Refills, Maintenance, 07/27/22 11:13:00 EDT, [facility], 167.6, cm, 05/10/22 16:16:00 EDT, [...] 0 Refills, Maintenance, 09/30/22 15:16:00 EST, Cream, [facility], Partial fill [...] 03/25/22 8:06:00 EDT, Route to Pharmacy Electronically, [facility], 167.6, cm, 03/25/22 7:30:... Start Date: 03/25/22 Status: Ordered FLUoxetine 20 mg oral capsule 20 mg, 1, capsule, By Mouth, Daily, # 90 capsule, Refills 3, Tot. Refills 3, Maintenance, 08/18/22 8:26:00 EST, Route to Pharmacy Electronically, [email or web address], Partial fill upon patient [...] 1 Refills, Maintenance, 08/12/22 11:44:00 EST, Tablet, [email or web address], Partial fill upon patient [...] Dates Health Status Cl inical Service Informant Low back pain Discharge Diagnosis 09/23/22 Social History Social History Type Response Smoking Status Never smoker entered on: 10/09/13 Sex Note * Melody Valdez: PERFORM, SIGN, VERIFY Event Display: Patient Education/Instruction Authored Date: [id number] [facility] Orin Donaldson Clinical Summary Name BRIANNA HARKINS Age 77 Years 1945 PCP Jovana Pla NP PCP Visit Date 09/23/2022 09:10:00 Additional Instructions: Scheduled Appointments?? Future Appointments ?No Future Appointments Scheduled Follow-Up Instructions ?? With: Address: When: Jovana Pal NP Diagnosis Low back pain, unspecified Medications: Please continue your medications until treatment is completed or stopped by your provider. Discuss any questions related to medications with your provider. New Medications [facility], [address] [place], [place] [id number], [phone] Cyclobenzaprine (cyclobenzaprine 5 mg oral tablet) 1 tab(s) Oral Daily at Bedtime as needed back spasm for 7 Days. Refills: 0. Next Dose: Medications to Continue [...] Orders ?No future orders Vital Signs Height Weight BMI Blood Pressure / Temperature Pulse Rate Respiratory Rate 02 Sat Mode of Delivery / You can now view a summary of your hospital visit from the comfort of your home through a free online portal called [employer]. [employer] is a website that allows you to securely view your medical information including discharge summary, medications and follow-up visits. ??You can alsosend a secure electronic message to your doctor???s office to request appointments, renew medications or just ask a question. You can enroll at [email or web address] or register during your next office visit. [...] primary care provider, you may find a [facility] provider by calling [facility] [employer] at [phone]. For information about the plan of care [...] Team Personnel Name: Leticia Alcantara RN Position: [facility] Onco RN Member Role: Primary Care Nurse Name: Juliet Hay NP Position: [facility] PCO Associate Professional Member Role: Primary Care Nurse Name: Jovana Pal NP Position: [facility] Associate Professional Member Role: PCP Address: Address: [address] [place] [address] Name: Michaela Castillo RN Position: S RN Member Role: Primary Care Nurse Name: Stacy Garcia RN Position: S RN Member Role: Primary Care Nurse Name: María Elena Dixon RN Position: S RN Member Role: Primary Care Nurse Care Team Related Persons Name: TORIN ISAURO Address: [address] [address] Name: AGNIESZKA MAURER Address: [address] [address]
--- OUTSIDE RECORDS SUMMARY | 2024-02-23 12:19 | XMS_ITS | Continuity of Care Document ---
Author Organization [facility] Sae lt Address [address] [place] [address]- Care Team Providers Care Dental Hygiene Professor Name Role Phone Kae OUTGOING INSPECTOR, Jovana Ghosh Primary Care Physician [phone] [facility]counter [facility] Date(s): 04/19/23 - 05/19/23 [facility] Adult [address] [place] [address]- Allergies, Adverse Reactions, Alerts Substance Reaction Severity Status ciprofloxacin diarrhea Active codeine nausea Active baclofen SEVERE GI UPSET Active Macrobid GI upset Active Spiriva 1 Active 1urinary Immunizations Given and Recorded Vaccine Date Status Refusal Reason pneumococcal 20-valent conjugate vaccine 1 02/13/23 Given [id number] 12y+ bivalent booster vax 2 08/12/22 Given [...] 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 Given 1Result Comment: [id number] 2Result Comment: [facility]-[id number] left lower deltoid 3Result Comment: [facility]-[id number] left upper deltoid 4Result Comment: [facility]: [id number] 5Result Comment: [07/11/2017] [facility]; 30478-793-83 HIGH DOSE 6Result Comment: [facility]: [id number] 7Admin Note: H1N1 8Admin Note: recieved elsewhere Medications amLODIPine 5 mg oral tablet 1 tablet, By Mouth, Daily, # 90 tablet, 3 Refills, Maintenance, 07/27/22 11:13:00 EDT, [facility], 167.6, cm, 05/10/22 16:16:00 EDT, Height, 97.8, kg, 04/29/22 14:30:00 EDT, Dry Weight Start Date: 07/27/22 Status: Ordered atorvastatin 40 mg oral tablet 1 tablet, By Mouth, Daily, # 90 tablet, 1 Refills, Maintenance, 02/22/23 18:23:00 EDT, [facility], 167.6, cm, 02/13/23 15:04:00 EDT, [...] 05/17/23 13:17:00 EDT, Route to Pharmacy Electronically, [facility], 167.6, cm, 03/23/23 10:29:00 EDT, [...] Team Personnel Name: Juliet Hay NP Position: [facility] PCO Associate Professional Member Role: Primary Care Nurse Name: Jovana Pal NP Position: [facility] Associate Professional Member Role: PCP Address: Address: [address] [place] [address]- Name: Michaela Castillo RN Position: [facility] RN Member Role: Primary Care Nurse Name: Leticia Barth RN Position: [facility] Onco RN Member Role: Primary Care Nurse Name: María Elena Dixon RN Position: [facility] RN Member Role: Primary Care Nurse Care Team Related Persons Name: ISAURO HARKINS Address: [address] [address] Name: AGNIESZKA MAURER Address: home [address] [place] [address]
--- OUTSIDE RECORDS SUMMARY | 2024-02-23 12:19 | XMS_ITS | Continuity of Care Document ---
Author Organization [facility] Sae lt Address [address] [place] [address]- Care Team Providers Care Weigh And Charge Worker Name Role Phone Wesley Pruitt MD Primary Care Physician Encounter [facility] Date(s): 05/10/22 - 05/17/22 [facility] Adult [address] [place] [address]- Encounter Diagnosis Hypertension(Discharge Diagnosis) - 05/08/22 Essential familial hyperlipidemia(Discharge Diagnosis) - 05/08/22 Chronic renal disease, stage 3, moderately decreased glomerular filtration rate (GFR) between 30-59mL/min/1.73 square meter(Discharge Diagnosis) - 05/08/22 Impaired fasting glucose(Discharge Diagnosis) - 05/08/22 Cough variant asthma(Discharge Diagnosis) - 05/08/22 Unspecified Vitamin D Deficiency(Discharge Diagnosis) - 05/08/22 PFO (patent foramen ovale) possible ECHO 2021(Discharge Diagnosis) - 05/08/22 Secondary hyperparathyroidism/endocrinology(Discharge Diagnosis) - 05/08/22 Encounter for monitoring long-term proton pump inhibitor therapy(Discharge Diagnosis) - 05/08/22 Osteoporosis(Discharge Diagnosis) - 05/08/22 GERD without esophagitis egd 2018(Discharge Diagnosis) - 05/08/22 Major depression in full remission(Discharge Diagnosis) - 05/10/22 Rash of back(Discharge Diagnosis) - 05/10/22 Attending Physician: Wesley Pruitt MD Allergies, Adverse [...] [facility]: [id number] 2Result Comment: [facility]: [id number] 3Result Comment: [07/11/2017] [facility]; 57439-590-30 HIGH DOSE 4Admin Note: H1N1 5Admin Note: [...] 03/25/22 8:06:00 EDT, Route to Pharmacy Electronically, [facility], 167.6, cm, 03/25/22 7:30:... Start Date: 03/25/22 Status: Ordered FLUoxetine 20 mg oral capsule 20 mg, 1, capsule, By Mouth, Daily, # 90 capsule, Refills 3, Tot. Refills 3, Maintenance, 02/22/21 14:32:00 EDT, Route to Pharmacy Electronically, [facility], Partial fill upon patient request if the prescription is for a schedule I... Start Date: 02/22/21 Status: Ordered fluticasone 50 mcg/inh nasal spray 2 sprays, Nasal, Daily, in each nostril use opposite hnad for each nostril, # 16 Gm, 1 Refills, Maintenance, 10/28/21 15:32:00 EST, [facility], 2 sprays Nasal Daily,Instr:in each [...] Mouth, Daily at bedtime, # 30 tablet, 0 Refills, Maintenance, 05/06/22 11:31:00 EDT, Tablet, [facility], Partial fill upon patient request if the prescription is for a schedule II opioid drug., 167.6, cm, 04/29/22 15:27:... Start Date: 05/06/22 Status: Ordered omeprazole 20 mg oral enteric coated capsule 1 capsule, By Mouth, Daily, # 90 capsule, 3 Refills, [facility], 167.6, cm, 11/23/21 16:35:00 EST, [...] Status Clinical Service Informant Hypertension Discharge Diagnosis 05/08/22 Chronic renal disease, stage 3, moderately decreased glomerular filtration rate (GFR) between 30-59 mL/min/1.73 square meter Discharge Diagnosis 05/08/22 Impaired fasting glucose Discharge Diagnosis 05/08/22 Essential familial hyperlipidemia Discharge Diagnosis 05/08/22 Cough variant asthma Discharge Diagnosis 05/08/22 GERD without esophagitis egd 2018 Discharge Diagnosis 05/08/22 Encounter for monitoring long-term proton pump inhibitor therapy Discharge Diagnosis 05/08/22 Osteoporosis Discharge Diagnosis 05/08/22 PFO (patent foramen ovale) possible ECHO 2021 Discharge Diagnosis 05/08/22 Secondary hyperparathyroidism/ endocrinology Discharge Diagnosis 05/08/22 Unspecified Vitamin D Deficiency Discharge Diagnosis 05/08/22 Major depression in full remission Discharge Diagnosis 05/10/22 Rash of back Discharge Diagnosis 05/10/22 Vital Signs Most recent to oldest [Reference Range]: 1 Height 167.6 cm (05/10/22 4:16 PM) Weight 101.7 kg (05/10/22 4:16 PM) Oxygen Saturation [94-100 %] 100 % (05/10/22 4:16 PM) Pulse Rate [55-90 bpm] 72 bpm (05/10/22 4:16 PM) Body Mass Index [18.5-24.99] 36.21 *>HHI* (05/10/22 4:16 PM) Blood Pressure [90-138/55-84 mm Hg] 133/ 76mm Hg (05/10/22 4:16 PM) Respiratory Rate [16-30 br/min] 16 br/mi n (05/10/22 4:16 PM) Temperature [96.8-100.4 DegF] 97.6 DegF (05/10/22 4:16 PM) Mode of Delivery (Oxygen) Room air (05/10/22 4:16 PM) Blood pressure sites Arm, left (05/10/22 4:16 PM) Temperature Route Oral (05/10/22 4:16 PM) Weight Obtained Via Standing scale (05/10/22 4:16 PM) Social History Social History Type Response Smoking Status Never smoker entered on: 10/09/13 Sex
--- OUTSIDE RECORDS SUMMARY | 2024-02-23 12:19 | XMS_ITS | Continuity of Care Document ---
Author Organization [facility] Sae lt Address [address] [place] [address]- Care Team Providers Care Monogram And Letter Paster Name Role Phone Edmond BRANDT, Wesley Kaur Primary Care Physician [phone] [facility] Date[facility]s): 08/24/20 - 09/23/20 [facility] Adult [address] [place] [address]- Allergies, Adverse Reactions, Alerts Substance Reaction Severity [...] (oldterm) 3 08/05/08 Given Tet/Diphth/Acel, Pertussis (oldterm) 3/5/08 Give n Pneumococcal 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 Given 1Result Comment: [07/11/2017] [facility]; 24961-996-64 HIGH DOSE 2Admin Note: H1N1 3Admin Note: recieved elsewhere Medications acetaminophen 325 mg oral tablet 650 mg, By Mouth, Every 6 hours, Refills 0, Maintenance, 09/19/19 11:55:00 EST Start Date: 09/19/19 Status: Ordered amLODIPine 5 mg oral tablet 5 mg, 1, tablet, By Mouth, Daily, # 90 tablet, Refills 3, Tot. Refills 3, Maintenance, 06/29/20 14:01:00 EDT, Route to Pharmacy Electronically, [facility], 167.6, cm, 06/16/20 10:40:00 EDT, Height, 101.2, kg, 09/17/19 10:13:00 EST,... Start Date: 06/29/20 Status: Ordered atorvastatin 40 mg oral tablet 1 tablet = 40 mg, By Mouth, Daily, # 90 tablet, 1 Refills, Soft Stop, 09/07/20 14:24:00 EST, [facility], 167.6, cm, 08/19/20 7:30:00 EST, [...] 05/07/20 9:11:00 EDT, Route to Pharmacy Electronically, [facility], 167.6, cm, 05/07/20 8:56:00 EDT, Height, 101.2, kg, 09/17/19 10:13:00 EST,... Start Date: 05/07/20 Status: Ordered fluticasone 50 mcg/inh nasal spray 2 sprays, Nasal, Daily, in each nostril use opposite hnad for each nostril, # 16 Gm, 3 Refills, Maintenance, 01/10/20 8:38:00 EDT, [facility], 2 sprays Nasal Daily,Instr:in each [...] tablet, 1 Refills, Maintenance, 07/13/20 16:01:00 EDT, [facility], 167.6, cm, 06/30/20 9:53:00 EDT, Height, 101.2, kg, 09/17/19 10:13:00 EST, Dry Weight Start Date: 07/13/20 Status: Ordered omeprazole 20 mg oral enteric coated capsule 1 capsule = 20 mg, By Mouth, Daily, # 90 capsule, 3 Refills, Maintenance, 08/26/20 13:24:00 EST, ECCapsule, [facility], 167.6, cm, 08/19/20 7:30:00 EST, [...]
--- OUTSIDE RECORDS SUMMARY | 2024-02-23 12:19 | XMS_ITS | Continuity of Care Document ---
Author Organization [facility] Sae lt Address [address] [place] [address]- Care Team Providers Care Revenue Cycle Analyst Name Role Phone Kae STRIPPER COLOR, Jovana Ghosh Primary Care Physician [facility] Date(s): 04/20/23 - 05/20/23 [facility] Adult [address] [place] [address]- Allergies, Adverse Reactions, Alerts Substance Reaction Severity Status ciprofloxacin diarrhea Active codeine nausea Active baclofen SEVERE GI UPSET Active Macrobid GI upset Active Spiriva 1 Active 1urinary Immunizations Given and Recorded Vaccine Date Status Refusal Reason pneumococcal 20-valent conjugate vaccine 1 02/13/23 Given [id number] 12y+ bivalent booster vax 2 08/12/22 Given [...] 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 Given 1Result Comment: [id number] 2Result Comment: [facility]-[id number] left lower deltoid 3Result Comment: [facility]-[id number] left upper deltoid 4Result Comment: [facility]: 79231-574-69 5Result Comment: [07/11/2017] [facility]; 90619-364-92 HIGH DOSE 6Result Comment: [facility]: [id number] 7Admin Note: H1N1 8Admin Note: recieved elsewhere Medications amLODIPine 5 mg oral tablet 1 tablet, By Mouth, Daily, # 90 tablet, 3 Refills, Maintenance, 07/27/22 11:13:00 EDT, [facility], 167.6, cm, 05/10/22 16:16:00 EDT, Height, 97.8, kg, 04/29/22 14:30:00 EDT, Dry Weight Start Date: 07/27/22 Status: Ordered atorvastatin 40 mg oral tablet 1 tablet, By Mouth, Daily, # 90 tablet, 1 Refills, Maintenance, 02/22/23 18:23:00 EDT, [facility], 167.6, cm, 02/13/23 15:04:00 EDT, [...] 13:17:00 EDT, Route to Pharmacy Electronically, [facility], 167.6, cm, 03/23/23 10:29:00 EDT, [...] Team Personnel Name: Juliet Hay NP [facility] Associate Professional Member Role: Primary Care Nurse Name: Jovana Pal NP Position: [facility] Associate Professional Member Role: PCP Address: Address: [address] [place] [address]- Name: Michaela Castillo RN Position: [facility] RN Member Role: Primary Care Nurse Name: Leticia Barth RN Position: [facility] Onco RN Member Role: Primary Care Nurse Name: María Elena Dixon RN Position[facility] RN Member Role: Primary Care Nurse Care Team Related Persons Name: ISAURO HARKINS Address: [address] [address] Name: AGNIESZKA MAURER Address: home [address] [place] [address]
--- OUTSIDE RECORDS SUMMARY | 2024-02-23 12:19 | XMS_ITS | Continuity of Care Document ---
Author Organization [facility] Sae lt Address [address] [place] [address]- Care Team Providers Care Grease Renderer Name Role Phone Edmond BRANDT, Wesley Kaur Primary Care Physician En[place] [facility] Date(s): 02/11/22 - 03/13/22 [facility] Adult [address] [place] [address]- Allergies, Adverse Reactions, Alerts Substance Reaction Severity [...] (PPV23) (oldterm) 12/01/01 Given 1Result Comment: [facility]: [id number] 2Result Comment: [facility]: 35188-438-30 3Result Comment: [07/11/2017] [facility]; 98272-920-87 HIGH DOSE 4Admin Note: H1N1 5Admin Note: [...]
--- OUTSIDE RECORDS SUMMARY | 2024-02-23 12:19 | XMS_ITS | Continuity of Care Document ---
Author Organization [facility] [place] Sae lt Address [address] [place] [address]- Care Team Providers Care Bleach Machine Operator Name Role Phone Edmond BRANDT, Wesley Kaur Primary Care Physician [phone] Encounter [facility] Date(s): 12/06/21 - 01/05/22 [facility] Adult [address] [place] [address]- Allergies, Adverse Reactions, Alerts Substance Reaction Severity [...] 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 Given 1Result Comment: [facility]: [id number] 2Result Comment: [facility]: 69740-444-77 3Result Comment: [07/11/2017] [facility]; 60096-906-94 HIGH DOSE 4Admin Note: H1N1 5Admin Note: [...] 14:32:00 EDT, Route to Pharmacy Electronically, [facility], Partial fill upon patient request if the prescription is for a schedule I... Start Date: 02/22/21 Status: Ordered fluticasone 50 mcg/inh nasal spray 2 sprays, Nasal, Daily, in each nostril use opposite hnad for each nostril, # 16 Gm, 1 Refills, Maintenance, 10/28/21 15:32:00 EST, [facility], 2 sprays Nasal Daily,Instr:in each [...] Refills, Maintenance, 09/20/21 11:54:00 EST, [facility], 167.6, cm, 08/19/21 11:48:00 EST, Height, 107.9, kg, 02/24/21 13:39:00 EDT, Dry Weight Start Date: 09/20/21 Status: Ordered omeprazole 20 mg oral enteric coated capsule 1 capsule, By Mouth, Daily, # 90 capsule, 0 Refills, [facility], 167.6, cm, 08/19/21 11:48:00 EST, [...]
--- OUTSIDE RECORDS SUMMARY | 2024-02-23 12:19 | XMS_ITS | Continuity of Care Document ---
Author Organization [facility] Sae lt Address [address] [place] [address]- Care Team Providers Care Vocational Rehabilitation Teacher Name Role Phone Kae EQUIPMENT TESTER, Jovana Ghosh Primary Care Physician [facility] Date(s): 05/31/23 - 06/30/23 [facility] Adult [address] [place] [address]- Allergies, Adverse Reactions, Alerts Substance Reaction Severity Status ciprofloxacin diarrhea Active codeine nausea Active baclofen SEVERE GI UPSET Active Macrobid GI upset Active Spiriva 1 Active 1urinary Immunizations Given and Recorded Vaccine Date Status Refusal Reason pneumococcal 20-valent conjugate vaccine 1 02/13/23 Given [id number] 12y+ bivalent booster vax 2 08/12/22 Given [...] 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 Given 1Result Comment: [id number] 2Result Comment: [facility]-[id number] left lower deltoid 3Result Comment: [facility]-[id number] left upper deltoid 4Result Comment: [facility]: 89719-046-02 5Result Comment: [07/11/2017] [facility]; 41116-364-53 HIGH DOSE 6Result Comment: [facility]: 5767-9884-94 7Admin Note: H1N1 8Admin Note: recieved elsewhere Medications amLODIPine 5 mg oral tablet 1 tablet, By Mouth, Daily, # 90 tablet, 3 Refills, Maintenance, 07/27/22 11:13:00 EDT, [facility], 167.6, cm, 05/10/22 16:16:00 EDT, Height, 97.8, kg, 04/29/22 14:30:00 EDT, Dry Weight Start Date: 07/27/22 Status: Ordered atorvastatin 40 mg oral tablet 1 tablet, By Mouth, Daily, # 90 tablet, 1 Refills, Maintenance, 02/22/23 18:23:00 EDT, [facility], 167.6, cm, 02/13/23 15:04:00 EDT, [...] 13:17:00 EDT, Route to Pharmacy Electronically, [facility], 167.6, cm, 03/23/23 10:29:00 EDT, [...] 06/06/23 7:52:00 EDT, Route to Pharmacy Electronically, [facility], 167.6, cm, 03/23/23 10:29:0... [...] Team Personnel Name: Juliet Hay NP Position: [facility] PCO Associate Professional Member Role: Primary Care Nurse Name: Jovana Pal NP Position: [facility] Associate Professional Member Role: PCP Address: Address: [address] [place] [address]- Name: Michaela Castillo RN Position: S RN Member Role: Primary Care Nurse Name: Lary STRATTON, Leticia Barrientos Position: [facility] Onco RN Member Role: Primary Care Nurse Name: Stacy Garcia RN Position: [facility] SN RN Member Role: Primary Care Nurse Name: María Elena Dixon RN Position: [facility] RN Member Role: Primary Care Nurse Care Team Related Persons Name: ISAURO HARKINS Address: [address] [address] Name: AGNIESZKA MAURER Address: [address] [address]
--- OUTSIDE RECORDS SUMMARY | 2024-02-23 12:19 | XMS_ITS | Continuity of Care Document ---
Author Organization [facility] Address [address] [facility] [address] [place] [address]- Care Team Providers Care Securities Clerk Name Role Phone Edmond BRANDT, Wesley Kaur Primary Care Physician [phone] Encounter 12/14/20 - 12/21/20 [facility] [address], [address] [place] [address]- Attending Physician: Wesley Pruitt MD Admitting Physician: [...] (PPV23) (oldterm) 12/01/01 Given 1Result Comment: [07/11/2017] [facility]; 62653-331-57 HIGH DOSE 2Admin Note: H1N1 3Admin Note: recieved elsewhere Medications acetaminophen 325 mg oral tablet 650 mg, By Mouth, Every 6 hours, Refills 0, Maintenance, 09/19/19 11:55:00 EST Start Date: 09/19/19 Status: Ordered amLODIPine 5 mg oral tablet 5 mg, 1, tablet, By Mouth, Daily, # 90 tablet, Refills 3, Tot. Refills 3, Maintenance, 06/29/20 14:01:00 EDT, Route to Pharmacy Electronically, [facility], 167.6, cm, 06/16/20 10:40:00 EDT, Height, 101.2, kg, 09/17/19 10:13:00 EST,... Start Date: 06/29/20 Status: Ordered atorvastatin 40 mg oral tablet 1 tablet = 40 mg, By Mouth, Daily, # 90 tablet, 1 Refills, Soft Stop, 09/07/20 14:24:00 EST, [facility], 167.6, cm, 08/19/20 7:30:00 EST, [...] 0.5 mg, By Mouth, Daily at bedtime, for 30 days, # 30 tablet, 0 Refills, Acute 01/06/21 14:01:00 EDT, 12/07/20 14:01:00 EST, [facility], early fill, 167.6, cm, 12/07/20 13:11:00 EST, Height, 101.2, kg, 09/17/19 10:13:00 EST, Dry We... Start Date: 12/07/20 Stop Date: 01/06/21 Status: Ordered LORazepam 0.5 mg oral tablet [...]
--- OUTSIDE RECORDS SUMMARY | 2024-02-23 12:19 | XMS_ITS | Continuity of Care Document ---
Author Organization [facility] Address [address] [place] [address]- Care Team Providers Care Liability Analyst Name Role Phone Edmond BRANDT, Wesley Kaur Primary Care Physician [phone] Encounter [facility] Date(s): 10/14/21 - 11/13/21 [facility] [address] [place] [id number] Attending Physician: Rosamaria Kitchen Admitting Physician: AdmRosamaria hernandez Referring Physician: Admtr ArYu Allergies, Adverse Reactions, Alerts Substance Reaction Severity [...] (PPV23) (oldterm) 12/01/01 Given 1Result Comment: [facility]: [id number] 2Result Comment: [facility]: 28983-606-44 3Result Comment: [07/11/2017] [facility]; 34706-186-11 HIGH DOSE 4Admin Note: H1N1 5Admin Note: [...] 5 Refills, Maintenance, 11/12/21 10:51:00EST, [facility] [...]
--- OUTSIDE RECORDS SUMMARY | 2024-02-23 12:19 | XMS_ITS | Continuity of Care Document ---
Author Organization [facility] Sae lt Address [address] [place] [address]- Care Team Providers Care Fox Raiser Name Role Phone Edmond BRANDT, Wesley Kaur Primary Care Physician [phone] [place] [facility] Date(s): 03/24/22 - 04/23/22 [facility] Adult [address] [place] [address]- Allergies, Adverse Reactions, Alerts Substance Reaction Severity [...] (PPV23) (oldterm) 12/01/01 Given 1Result Comment: [facility]: [id number] 2Result Comment: [facility]: 93825-155-01 3Result Comment: [07/11/2017] [facility]; 64042-453-16 HIGH DOSE 4Admin Note: H1N1 5Admin Note: [...] 03/25/22 8:06:00 EDT, Route to Pharmacy Electronically, [facility], 167.6, cm, 03/25/22 7:30:... [...]
--- OUTSIDE RECORDS SUMMARY | 2024-02-23 12:19 | XMS_ITS | Continuity of Care Document ---
Author Organization [facility] Sae lt Address [address] [place] [address]- Care Team Providers Care Shipfitter Helper Name Role Phone Edmond BRANDT, Wesley Kaur Primary Care Physician [phone] [place] [facility] [place] 08/11/21 - 09/10/21 [facility] Adult [address] [place] [address]- Allergies, Adverse Reactions, Alerts Substance Reaction Severity [...] 12/01/01 Given 1Result Comment: [facility]: 3830-1349-20 2Result Comment: [facility]: 98194-613-05 3Result Comment: [07/11/2017] [facility]; 41295-560-60 HIGH DOSE 4Admin Note: H1N1 5Admin Note: [...] 14:32:00 EDT, Route to Pharmacy Electronically, [facility], Partial fill upon patient request [...] 1 Refills, Maintenance, 07/26/21 14:47:00 EDT, [facility], 167.6, cm, 07/26/21 14:38:00 EDT, [...]
--- OUTSIDE RECORDS SUMMARY | 2024-02-23 12:19 | XMS_ITS | Continuity of Care Document ---
Author Organization [facility] Sae lt Address [address] [place] [address]- Care Team Providers Care Animal Control Licensing Worker Name Role Phone Kae AIRCONDITIONING DRAFTING OFFICER, Jovana Ghosh Primary Care Physician [phone] [facility] Date[facility]s): 11/01/23 - 12/01/23 [facility] Adult [address] [place] [address]- Allergies, Adverse Reactions, Alerts Substance Reaction Severity [...] pneumococcal 20-valent conjugate vaccine 5 02/13/23 Given [id number] 12y+ bivalent booster vax 6 08/12/22 Given [...] 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 Given 1Result Comment: [id number] 2Result Comment: [facility]-[id number] left upper deltoid 3Result Comment: [facility]: 05597-474-56 4Result Comment: [07/11/2017] [facility]; 95757-015-13 HIGH DOSE 5Result Comment: [id number] 6Result Comment: [facility]-[id number] left lower deltoid 7Result Comment: [facility]: 8421-9770-73 8Admin Note: H1N1 9Admin Note: recieved elsewhere [...] capsule, Refills 1, Tot. Refills 1, Maintenance, 11/01/23 6:59:00EST, Route to Pharmacy Electronically, [facility], 167.6, cm, 09/04/23 14:35:00 EST, Height, 97.8, kg, 04/29/22 14:30:00 EDT, Dry We... Start Date: 11/01/23 Status: Ordered fluticasone 50 mcg/inh nasal spray 2 sprays, Nasal, Daily, in each nostril use opposite hnad for each nostril, # 16 Gm, 1 Refills, Maintenance, 10/28/21 15:32:00 EST, [facility], 2 sprays Nasal Daily,Instr:in each [...] 21:09:00 EDT, Route to Pharmacy Electronically, [facility], 167.6, cm, 03/03... Start Date: [...] Team Personnel Name: Juliet Hay NP Position: [facility] PCO Associate Professional Member Role: Primary Care Nurse Name: Jovana Pal NP Position: [facility] Associate Professional Member Role: PCP Address: Address: [address] [place] [id number] Name: Michaela Castillo RN Position: [facility] RN Member Role: Primary Care Nurse Name: Leticia Barth RN Position: [facility] Onco RN Member Role: Primary Care Nurse Name: Stacy Garcia RN Position: [facility] SN RN Member Role: Primary Care Nurse Name: María Elena Dixon RN Position: [facility] RN Member Role: Primary Care Nurse Care Team Related Persons Name: ISAURO HARKINS Address: [address] [address] Name: AGNIESZKA MAURER Address: [address] [address]
--- OUTSIDE RECORDS SUMMARY | 2024-02-23 12:19 | XMS_ITS | Continuity of Care Document ---
Author Organization [facility] Sae lt Address [address] [place] [address]- Care Team Providers Care Manager Requirements Name Role Phone Kae WATER QUALITY CONTROL ENGINEER, Jovana Ghosh Primary Care Physician [facility] Date(s): 12/27/23 - 01/26/24 [facility] Adult [address] [place] [address]- Allergies, Adverse Reactions, Alerts Substance Reaction Severity [...] pneumococcal 20-valent conjugate vaccine 5 02/13/23 Given [id number] 12y+ bivalent booster vax 6 08/12/22 Given [...] 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 Given 1Result Comment: [id number] 2Result Comment: [facility]-[id number] left upper deltoid 3Result Comment: [facility]: 26214-212-12 4Result Comment: [07/11/2017] [facility]; 34257-949-36 HIGH DOSE 5Result Comment: [id number] 6Result Comment: [facility]-[id number] left lower deltoid 7Result Comment: [facility]: [id number] 8Admin Note: H1N1 9Admin Note: recieved elsewhere [...] Maintenance, 11/01/23 6:59:00EST, Route to Pharmacy Electronically, [facility], 167.6, cm, 09/04/23 14:35:00 EST, Height, 97.8, kg, 04/29/22 14:30:00 EDT, Dry We... Start Date: 11/01/23 Status: Ordered fluticasone 50 mcg/inh nasal spray 2 sprays, Nasal, Daily, in each nostril use opposite hnad for each nostril, # 16 Gm, 1 Refills, Maintenance, 10/28/21 15:32:00 EST, [facility], 2 sprays Nasal Daily,Instr:in each nostril; use opposite hnad for each nostril, 167.6,... Start Date: 10/28/21 Status: Ordered gabapentin 100 mg oral capsule 100 mg, 1, capsule, By Mouth, 2 times a day, PRN, # 30 capsule, Refills 0, Tot. Refills 0, Maintenance, Pain , Moderate, 01/17/24 12:43:00 EDT, Route to Pharmacy Electronically, [facility], Partial fill upon patient request if the prescriptio... Start Date: 01/17/24 Status: Ordered Imodium A-D 2 mg oral [...] capsule, 3 Refills, 05/22/23 10:49:00 EDT, [facility], 167.6, cm, 03/23/23 10:29:00 EDT, [...] Personnel Name: Satnam BUNDY, Juliet Snyder Position: [facility] PCO Associate Professional Member Role: Primary Care Nurse Name: Jovana Pal NP Position: [facility] Associate Professional Member Role: PCP Address: Address: [address] [place] [address]- Name: Michaela Castillo RN Position: S RN Member Role: Primary Care Nurse Name: Lary STRATTON, Leticia Barrientos Position: [facility] Onco RN Member Role: Primary Care Nurse Name: Stacy Garcia RN Position: [facility] AMB Nurse Member Role: Primary Care Nurse Name: María Elena Dixon RN Position: [facility] RN Member Role: Primary Care Nurse Care Team Related Persons Name: ISAURO HARKINS Address: [address] [address] Name: AGNIESZKA MAURER Address: [address] [address]
--- OUTSIDE RECORDS SUMMARY | 2024-02-23 12:19 | XMS_ITS | Continuity of Care Document ---
Author Organization [facility] [place] Sae lt Address [address] [place] [address]- Care Team Providers Care Grocery Manager Name Role Phone Kae BACK TENDER FOURDRINIER, Jovana Ghosh Primary Care Physician [phone] [facility]counter [facility] Date(s): 05/31/23 - 06/30/23 [facility] Adult [address] [place] [address]- Allergies, Adverse Reactions, Alerts Substance Reaction Severity Status ciprofloxacin diarrhea Active codeine nausea Active baclofen SEVERE GI UPSET Active Macrobid GI upset Active Spiriva 1 Active 1urinary Immunizations Given and Recorded Vaccine Date Status Refusal Reason pneumococcal 20-valent conjugate vaccine 1 02/13/23 Given [id number] 12y+ bivalent booster vax 2 08/12/22 Given [...] 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 Given 1Result Comment: [id number] 2Result Comment: [facility]-[id number] left lower deltoid 3Result Comment: [facility]-[id number] left upper deltoid 4Result Comment: [facility]: 40711-537-19 5Result Comment: [07/11/2017] [facility]; 79434-866-80 HIGH DOSE 6Result Comment: [facility]: [id number] 7Admin Note: H1N1 8Admin Note: recieved elsewhere Medications amLODIPine 5 mg oral tablet 1 tablet, By Mouth, Daily, # 90 tablet, 3 Refills, Maintenance, 07/27/22 11:13:00 EDT, [facility], 167.6, cm, 05/10/22 16:16:00 EDT, Height, 97.8, kg, 04/29/22 14:30:00 EDT, Dry Weight Start Date: 07/27/22 Status: Ordered atorvastatin 40 mg oral tablet 1 tablet, By Mouth, Daily, # 90 tablet, 1 Refills, Maintenance, 02/22/23 18:23:00 EDT, [facility], 167.6, cm, 02/13/23 15:04:00 EDT, [...] 05/17/23 13:17:00 EDT, Route to Pharmacy Electronically, [facility], 167.6, cm, 03/23/23 10:29:00 EDT, [...] 06/06/23 7:52:00 EDT, Route to Pharmacy Electronically, [facility], 167.6, cm, 03/23/23 10:29:0... [...] 14:31:00 EST, Route to Pharmacy Electronically, [facility], Partial fill upon patient request [...] Name: Satnam BUNDY, Juliet Snyder Position: [facility] PCO Associate Professional Member Role: Primary Care Nurse Name: Jovana Pal NP Position: [facility] Associate Professional Member Role: PCP Address: Address: [address] [place] [address]- Name: Michaela Castillo RN Position: S RN Member Role: Primary Care Nurse Name: Lary STRATTON, Leticia Barrientos Position: [facility] Onco RN Member Role: Primary Care Nurse Name: Stacy Garcia RN Position: [facility] RN Member Role: Primary Care Nurse Name: María Elena Dixon RN Position: S RN Member Role: Primary Care Nurse Care Team Related Persons Name: ISAURO HARKINS Address: [address] [address] Name: AGNIESZKA MAURER Address: [address] [address]
--- OUTSIDE RECORDS SUMMARY | 2024-02-23 12:20 | XMS_ITS | Continuity of Care Document ---
Author Organization [facility] Sae lt Address [address] [place] [address]- Care Team Providers Care Associate Loan Officer Name Role Phone Edmond BRANDT, Wesley Kaur Primary Care Physician Encounter [facility] Date(s): 11/16/21 - 12/16/21 [facility] Adult [address] [place] [address]- Allergies, Adverse Reactions, Alerts Substance Reaction Severity [...] (PPV23) (oldterm) 12/01/01 Given 1Result Comment: [facility]: [id number] 2Result Comment: [facility]: 44382-724-12 3Result Comment: [07/11/2017] [facility]; 38063-665-34 HIGH DOSE 4Admin Note: H1N1 5Admin Note: [...] 14:32:00 EDT, Route to Pharmacy Electronically, [facility], Partial fill upon patient request if the prescription is for a schedule I... Start Date: 02/22/21 Status: Ordered fluticasone 50 mcg/inh nasal spray 2 sprays, Nasal, Daily, in each nostril use opposite hnad for each nostril, # 16 Gm, 1 Refills, Maintenance, 10/28/21 15:32:00 EST, [facility], 2 sprays Nasal Daily,Instr:in each [...] tablet, 0 Refills, Maintenance, 09/20/21 11:54:00 EST, [facility] # [facility], 167.6, cm, 08/19/21 11:48:00 EST, Height, 107.9, kg, 02/24/21 13:39:00 EDT, Dry Weight Start Date: 09/20/21 Status: Ordered omeprazole 20 mg oral enteric coated capsule 1 capsule, By Mouth, Daily, # 90 capsule, 0 Refills, [facility], 167.6, cm, 08/19/21 11:48:00 EST, [...]
--- OUTSIDE RECORDS SUMMARY | 2024-02-23 12:20 | XMS_ITS | Continuity of Care Document ---
Author Organization [facility]ward Sae lt Address [address] [place] [address]- Care Team Providers Care Tenter Frame Back Tender Name Role Phone Edmond BRANDT, Wesley Kaur Primary Care Physician [phone] [facility] Date[facility]s): 03/10/20 - 03/17/20 [facility] Adult [address] [place] [address]- [facility] Encounter Diagnosis Medicare annual wellness visit, subsequent(Discharge Diagnosis) - 03/10/20 Cough variant asthma(Discharge Diagnosis) - 03/10/20 Chronic renal disease, stage 3, moderately decreased glomerular filtration rate (GFR) between 30-59mL/min/1.73 square meter(Discharge Diagnosis) - 03/10/20 GERD without esophagitis egd 2018(Discharge Diagnosis) - 03/10/20 LVH (left ventricular hypertrophy) Echo 2017(Discharge Diagnosis) - 03/10/20 IBS (irritable bowel syndrome)(Discharge Diagnosis) - 03/10/20 Impaired fasting glucose(Discharge Diagnosis) - 03/10/20 Unspecified Vitamin D Deficiency(Discharge Diagnosis) - 03/10/20 Diverticulosis, sigmoid(Discharge Diagnosis) - 03/10/20 Chronic venous insufficiency(Discharge Diagnosis) - 03/10/20 Anxiety(Discharge Diagnosis) - 03/10/20 Aortic heart murmur;nil echo 2017(Discharge Diagnosis) - 03/10/20 Encounter for monitoring long-term proton pump inhibitor therapy(Discharge Diagnosis) - 03/10/20 Essential familial hyperlipidemia(Discharge Diagnosis) - 03/10/20 PND (post-nasal drip) globus(Discharge Diagnosis) - 03/10/20 Obesity (BMI 30-39.9)(Discharge Diagnosis) - 6/9/20 Allergic rhinitis(Discharge Diagnosis) - 03/10/20 Dysplastic toenail(Discharge Diagnosis) - 03/10/20 Depression, major(Discharge Diagnosis) - 03/10/20 Attending Physician: Wesley Pruitt MD Allergies, Adverse [...] (PPV23) (oldterm) 12/01/01 Given 1Result Comment: [07/11/2017] [facility]; 63750-895-05 HIGH DOSE 2Admin Note: H1N1 3Admin Note: [...] 11/03/19 19:07:00 EST, Route to Pharmacy Electronically, [facility], 167.6, cm, 09/19/19 7:55:00 EST, Height, 101.2, kg, 09/17/19 10:13:00 EST... Start Date: 11/03/19 Status: Ordered fluticasone 50 mcg/inh nasal spray 2 sprays, Nasal, Daily, in each nostril use opposite hnad for each nostril, # 16 Gm, 3 Refills, Maintenance, 01/10/20 8:38:00 EDT, [facility], 2 sprays Nasal Daily,Instr:in each [...] 12:01:00 EST Start Date: 08/21/19 Status: Ordered omeprazole 20 mg oral enteric [...] Medicare annual wellness visit, subsequent Discharge Diagnosis 03/10/20 Cough variant asthma Discharge Diagnosis 03/10/20 Chronic renal disease, stage 3, moderately decreased glomerular filtration rate (GFR) between 30-59 mL/min/1.73 square meter Discharge Diagnosis 03/10/20 GERD without esophagitis egd 2018 Discharge Diagnosis 03/10/20 LVH (left ventricular hypertrophy) Echo 2016 Discharge Diagnosis 03/10/20 IBS (irritable bowel syndrome) Discharge Diagnosis 03/10/20 Impaired fasting glucose Discharge Diagnosis 03/10/20 Unspecified Vitamin D Deficiency Discharge Diagnosis 03/10/20 Diverticulosis, sigmoid Discharge Diagnosis 03/10/20 Chronic venous insufficiency Discharge Diagnosis 03/10/20 Anxiety Discharge Diagnosis 03/10/20 Aortic heart murmur;nil echo 2016 Discharge Diagnosis 03/10/20 Encounter for monitoring long-term proton pump inhibitor therapy Discharge Diagnosis 03/10/20 Essential familial hyperlipidemia Discharge Diagnosis 03/10/20 PND (post-nasal drip) globus Discharge Diagnosis 03/10/20 Obesity (BMI 30-39.9) Discharge Diagnosis 03/10/20 Allergic rhinitis Discharge Diagnosis 03/10/20 Dysplastic toenail Discharge Diagnosis 03/10/20 Depression, major Discharge Diagnosis 03/10/20 Vital Signs Most recent to oldest [Reference Range]: 1 2 Height 167.6 cm (03/10/20 3:20 PM) 167.6 cm (03/10/20 2:53 PM) Weight 106.6 kg (03/10/20 2:53 PM) Oxygen Saturation [94-100 %] 99 % (03/10/20 2:53 PM) Pulse Rate [55-90 bpm] 64 bpm (03/10/20 2:53 PM) Body Mass Index [18.5-24.99] 37.95 *>HHI* (03/10/20 2:53 PM) Blood Pressure [90-138/55-84 mm Hg] 124/ 76mm Hg (03/10/20 3:20 PM) 138/90mm Hg (03/10/20 2:53 PM) Respiratory Rate [16-30 br/min] 18 br/mi n (03/10/20 2:53 PM) Temperature [96.8-100.4 DegF] 99.0 DegF (03/10/20 2:53 PM) Blood pressure sites Arm, left (03/10/20 3:20 PM) Arm, left (03/10/20 2:53 PM) Temperature Route Oral (03/10/20 2:53 PM) Social History Social History Type Response Smoking Status Never smoker entered on: 10/09/13 Sex
--- OUTSIDE RECORDS SUMMARY | 2024-02-23 12:20 | XMS_ITS | Continuity of Care Document ---
Author Organization [facility] Sae lt Address [address] [place] [address]- Care Team Providers Care Trimmer Loader Name Role Phone Kae COUNSELING CASE MANAGER, Jovana Ghosh Primary Care Physician [facility] Date(s): 09/08/22 - 10/08/22 [facility] Adult [address] [place] [address]- Allergies, Adverse Reactions, Alerts Substance Reaction Severity Status ciprofloxacin diarrhea Active codeine nausea Active baclofen SEVERE GI UPSET Active Macrobid GI upset Active Spiriva 1 Active 1urinary Immunizations Given and Recorded Vaccine Date Status Refusal Reason [id number] 12y+ bivalent booster vax 1 08/12/22 Given [...] 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 Given 1Result Comment: [facility]-[id number] left lower deltoid 2Result Comment: [facility]-[id number] left upper deltoid 3Result Comment: [facility]: [id number] 4Result Comment: [07/11/2017] [facility]; 20868-658-21 HIGH DOSE 5Result Comment: [facility]: [id number] 6Admin Note: H1N1 7Admin Note: recieved elsewhere Medications amLODIPine 5 mg oral tablet 1 tablet, By Mouth, Daily, # 90 tablet, 3 Refills, Maintenance, 07/27/22 11:13:00 EDT, [facility], 167.6, cm, 05/10/22 16:16:00 EDT, Height, 97.8, kg, 04/29/22 14:30:00 EDT, Dry Weight Start Date: 07/27/22 Status: Ordered atorvastatin 40 mg oral tablet 1 tablet, By Mouth, Daily, # 90 tablet, 1 Refills, Maintenance, 08/26/22 9:23:00 EST, [facility], 167.6, cm, 08/12/22 11:12:00 EST, [...] 08/18/22 8:26:00 EST, Route to Pharmacy Electronically, [facility] # [facility], Partial fill upon patient [...] 1 Refills, Maintenance, 08/12/22 11:44:00 EST, Tablet, [facility] # [facility], Partial fill upon patient [...] Team Personnel Name: Leticia Alcantara RN Position: [facility] Onco RN Member Role: Primary Care Nurse Name: Juliet Hay NP Position: [facility] PCO Associate Professional Member Role: Primary Care Nurse Name: Jovana Pal NP Position: [facility] Associate Professional Member Role: PCP Address: Address: [address] [place] [address]- Name: Michaela Castillo RN Position: S RN Member Role: Primary Care Nurse Name: Stacy Garcia RN Position: S RN Member Role: Primary Care Nurse Name: María Elena Dixon RN Position: S RN Member Role: Primary Care Nurse Care Team Related Persons Name: ISAURO HARKINS Address: [address] [address] Name: AGNIESZKA MAURER Address: [address] [address]
--- OUTSIDE RECORDS SUMMARY | 2024-02-23 12:20 | XMS_ITS | Continuity of Care Document ---
Author Organization [facility] Address [address] [place] [address]- Care Team Providers Care Evp Global Multimedia Sales Name Role Phone Kae Jovana BUNDY Primary Care Physician [phone] [facility]counter [facility] Date(s): 01/07/24 - 02/06/24 [facility] [address] [place] [address] Allergies, Adverse Reactions, Alerts Substance Reaction [...] pneumococcal 20-valent conjugate vaccine 5 02/13/23 Given [id number] 12y+ bivalent booster vax 6 08/12/22 Given [...] 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 Given 1Result Comment: [id number] 2Result Comment: [facility]-[id number] left upper deltoid 3Result Comment: [facility]: [id number] 4Result Comment: [07/11/2017] [facility]; 66534-470-23 HIGH DOSE 5Result Comment: [id number] 6Result Comment: [facility]-[id number] left lower deltoid 7Result Comment: [facility]: [id number] 8Admin Note: H1N1 9Admin Note: recieved elsewhere [...] 02/02/24 14:30:00 EDT, Route to Pharmacy Electronically, [facility], 167.6, cm, 02/02/24 13:57:00EDT, Height, 97.8, kg, 04/29/22 14:30:00 EDT, Dry W... Start Date: 02/02/24 Status: Ordered fluticasone 50 mcg/inh nasal spray 2 sprays, Nasal, Daily, in each nostril use opposite hnad for each nostril, # 16 Gm, 1 Refills, Maintenance, 10/28/21 15:32:00 EST, [facility], 2 sprays Nasal Daily,Instr:in each [...] Personnel Name: Satnam BUNDY, Juliet Snyder Position: [facility] PCO Associate Professional Member Role: Primary Care Nurse Name: Jovana Pal NP Position: [facility] Associate Professional Member Role: PCP Address: Address: [address] [place] [address]- Name: Michaela Castillo RN Position: [facility] RN Member Role: Primary Care Nurse Name: Leticia Barth RN Position: [facility] Onco RN Member Role: Primary Care Nurse Name: Stacy Garcia RN Position: [facility] AMB Nurse Member Role: Primary Care Nurse Name: María Elena Dixon RN Position: [facility] RN Member Role: Primary Care Nurse Care Team Related Persons Name: ISAURO HARKINS Address: [address] [address] Name: AGNIESZKA MAURER Address: [address] [address]
--- OUTSIDE RECORDS SUMMARY | 2024-02-23 12:20 | XMS_ITS | Continuity of Care Document ---
Author Organization [facility] Sae lt Address [address] [place] [address]- Care Team Providers Care Lens Molder Name Role Phone Edmond BRANDT, Wesley Kaur Primary Care Physician [phone] Encounter [facility] Date(s): 03/17/22 - 04/16/22 [facility] Adult [address] [place] [address]- Allergies, Adverse Reactions, Alerts Substance Reaction Severity [...] 1Result Comment: [facility]: [id number] 2Result Comment: [facility]: 76615-453-39 3Result Comment: [07/11/2017] [facility]; 30196-152-28 HIGH DOSE 4Admin Note: H1N1 5Admin Note: [...] 03/25/22 8:06:00 EDT, Route to Pharmacy Electronically, [facility], 167.6, cm, 03/25/22 7:30:... [...]
--- OUTSIDE RECORDS SUMMARY | 2024-02-23 12:20 | XMS_ITS | Continuity of Care Document ---
Author Organization [facility] Sae lt Address [address] [place] [address]- Care Team Providers Care Economic Development Coordinator Name Role Phone Kae ACIDIZER WATER WELLJovana Primary Care Physician [facility] Date(s): 01/12/24 - 02/11/24 [facility] Adult [address] [place] [address]- Allergies, Adverse Reactions, Alerts Substance Reaction Severity [...] pneumococcal 20-valent conjugate vaccine 5 02/13/23 Given [id number] 12y+ bivalent booster vax 6 08/12/22 Given [...] 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 Given 1Result Comment: [id number] 2Result Comment: [facility]-[id number] left upper deltoid 3Result Comment: [facility]: [id number] 4Result Comment: [07/11/2017] [facility]; 44201-757-04 HIGH DOSE 5Result Comment: [id number] 6Result Comment: [facility]-[id number] left lower deltoid 7Result Comment: [facility]: [id number] 8Admin Note: H1N1 9Admin Note: recieved elsewhere Medications amLODIPine 5 mg oral tablet 1 tablet, By Mouth, Daily, # 90 tablet, 1 Refills, Maintenance, 02/02/24 14:29:00 EDT, [facility], 167.6, cm, 02/02/24 13:57:00 EDT, Height, 97.8, kg, 04/29/22 14:30:00 EDT, Dry Weight Start Date: 02/02/24 Status: Ordered atorvastatin 40 mg oral tablet 1 tablet, By Mouth, Daily, # 90 tablet, 1 Refills, Maintenance, 02/02/24 14:29:00 EDT, [facility], 167.6, cm, 02/02/24 13:57:00 EDT, [...] 02/02/24 14:30:00 EDT, Route to Pharmacy Electronically, [facility], 167.6, cm, 02/02/24 13:57:00EDT, Height, 97.8, kg, 04/29/22 14:30:00 EDT, Dry W... Start Date: 02/02/24 Status: Ordered fluticasone 50 mcg/inh nasal spray 2 sprays, Nasal, Daily, in each nostril use opposite hnad for each nostril, # 16 Gm, 1 Refills, Maintenance, 10/28/21 15:32:00 EST, [facility], 2 sprays Nasal Daily,Instr:in each [...] Team Personnel Name: Juliet Hay NP Position: [facility] PCO Associate Professional Member Role: Primary Care Nurse Name: Jovana Pal NP Position: [facility] Associate Professional Member Role: PCP Address: Address: [address] [place] [id number] Name: Michaela Castillo RN Position: [facility] RN Member Role: Primary Care Nurse Name: Leticia Barth RN Position: [facility] Onco RN Member Role: Primary Care Nurse Name: Stacy Garcia RN Position: [facility] AMB Nurse Member Role: Primary Care Nurse Name: María Elena Dixon RN Position: [facility] RN Member Role: Primary Care Nurse Care Team Related Persons Name: ISAURO HARKINS Address: [address] [address] Name: AGNIESZKA MAURER Address: [address] [address]
--- OUTSIDE RECORDS SUMMARY | 2024-02-23 12:20 | XMS_ITS | Continuity of Care Document ---
Author Organization [facility] Sae [facility] Address [address] [place] [address]- Care Team Providers Care First Aid Attendant Name Role Phone Edmond BRANDT, Wesley Kaur Primary Care Physician [phone] [facility] Date[facility]s): 10/13/21 - 11/12/21 [facility] Adult [address] [place] [address]- Allergies, Adverse Reactions, Alerts Substance Reaction Severity [...] vaccine, inactivated 05/21/20 Recorded tetanus-diphtheria toxoids (Td) 4/11/18 Given tetanus-diphtheria toxoids (Td) 12/01/95 Given pneumococcal 13-valent vaccine 10/22/14 Given FluLaval (oldterm) 06/08/12 Given influ virus vac, H1N1, inactive(oldterm) 06/15/11 Given influ virus vac, H1N1, inactive(oldterm) 4 09/22/09 Given Zostavax (oldterm) 05/13/09 Given Influenza Inactive (IM) (oldterm) 5 08/05/08 Given Tet/Diphth/Acel, Pertussis (oldterm) 12/05/07 Give n Pneumococcal 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 Given 1Result Comment: [facility]: [id number] 2Result Comment: [facility]: 63208-773-35 3Result Comment: [07/11/2017] [facility]; 84948-660-48 HIGH DOSE 4Admin Note: H1N1 5Admin Note: [...] # 30 tablet, 5 Refills, Maintenance, 11/12/21 10:51:00[facility], [facility] # [facility], Partial fill upon patient request if the prescription is for a schedule II opioid drug., 1 tablet By Mouth Every 24 hours, 16... Start Date: 11/12/21 Status: Ordered cholecalciferol 2000 intl units oral tablet See Instructions, 1 tablet By Mouth Daily m-;2 weekend, Refills, Maintenance Start Date: 11/11/09 Status: Ordered [...] 14:32:00 EDT, Route to Pharmacy Electronically, [facility], Partial fill upon patient request if the prescription is for a schedule I... Start Date: 02/22/21 Status: Ordered fluticasone 50 mcg/inh nasal spray 2 sprays, Nasal, Daily, in each nostril use opposite hnad for each nostril, # 16 Gm, 1 Refills, Maintenance, 10/28/21 15:32:00 EST, [facility], 2 sprays Nasal Daily,Instr:in each [...] tablet, 0 Refills, Maintenance, 09/20/21 11:54:00 EST, [facility] # [facility], 167.6, cm, 08/19/21 [...]
--- OUTSIDE RECORDS SUMMARY | 2024-02-23 12:20 | XMS_ITS | Continuity of Care Document ---
Author Organization [facility] Address [address] [place] [address]- Care Team Providers Care Machine Shorthand Reporter Name Role Phone Edmond BRANDT, Wesley Kaur Primary Care Physician [facility] 07/19/21 - 08/18/21 [facility] Adult [address] [place] [address]- Allergies, Adverse Reactions, Alerts Substance Reaction Severity [...] 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 Given 1Result Comment: [facility]: [id number] 2Result Comment: [facility]: [id number] 3Result Comment: [07/11/2017] [facility]; 37147-219-75 HIGH DOSE 4Admin Note: H1N1 5Admin Note: [...] Refills, Soft Stop, 03/04/21 12:12:00 EDT, [facility], 167.6, cm, 02/24/21 14:50:00 EDT, [...] 14:32:00 EDT, Route to Pharmacy Electronically, [facility], Partial fill upon patient request if the prescription is for a schedule I... Start Date: 02/22/21 Status: Ordered fluticasone 50 mcg/inh nasal spray 2 sprays, Nasal, Daily, in each nostril use opposite hnad for each nostril, # 16 Gm, 1 Refills, Maintenance, 01/09/21 10:28:00 EDT, [facility], 2 sprays Nasal Daily,Instr:in each [...] 1 Refills, Maintenance, 07/26/21 14:47:00 EDT, [facility], 167.6, cm, 07/26/21 14:38:00 EDT, [...] 08/05/21 14:52:00 EDT, Route to Pharmacy Electronically, [facility] # [facility], Partial fill upon patient request if the prescription is for a schedule II opioid . Start Date: 08/05/21 Status: Ordered Voltaren 1% topical gel = 2 Gm, Topically, 4 times a day, # 100 Gm, 0 Refills, Maintenance, 05/07/20 9:13:00 EDT, Gel, [facility] # [facility], 2 Gm [...]
--- OUTSIDE RECORDS SUMMARY | 2024-02-23 12:20 | XMS_ITS | Continuity of Care Document ---
Author Organization [facility] S[facility] Address [address] [place] [address]- Care Team Providers Care Board Of Education Secretary Name Role Phone Edmond BRANDT, Wesley Kaur Primary Care Physician [facility]s): 06/03/20 - 07/03/20 [facility] Adult [address] [place] [address]- [facility] Allergies, Adverse Reactions, Alerts Substance Reaction Severity [...] (PPV23) (oldterm) 12/01/01 Given 1Result Comment: [07/11/2017] [facility]; 79236-827-40 HIGH DOSE 2Admin Note: H1N1 3Admin Note: [...] Refills, Soft Stop, 03/09/20 11:18:00 EDT, [facility], 167.6, cm, 09/19/19 7:55:00 EST, [...] 05/07/20 9:11:00 EDT, Route to Pharmacy Electronically, [facility], 167.6, cm, 05/07/20 8:56:00 EDT, Height, 101.2, kg, 09/17/19 10:13:00 EST,... Start Date: 05/07/20 Status: Ordered fluticasone 50 mcg/inh nasal spray 2 sprays, Nasal, Daily, in each nostril use opposite hnad for each nostril, # 16 Gm, 3 Refills, Maintenance, 01/10/20 8:38:00 EDT, [facility], 2 sprays Nasal Daily,Instr:in each [...] 1 Refills, Maintenance, 03/26/20 15:58:00 EDT, [facility], 167.6, cm, 03/10/20 15:20:00 EDT, Height, 101.2, kg, 09/17/1910:13:00 EST, Dry Weight Start Date: 03/26/20 Status: Ordered omeprazole 20 mg oral enteric coated capsule 1 capsule = 20 mg, By Mouth, Daily, # 90 capsule, 3 Refills, Maintenance, 08/15/19 10:35:59 EST, [facility]CC[facility], [facility] Start Date: 08/15/19 Stop Date: [...]
--- OUTSIDE RECORDS SUMMARY | 2024-02-23 12:20 | XMS_ITS | Continuity of Care Document ---
Author Organization [facility] Address [address] [place] [address]- Care Team Providers Care Home Health Clinical Supervisor Name Role Phone Kae Jovana BUNDY Primary Care Physician [facility]s): 01/11/24 - 02/10/24 [facility] [address] [place] [address]- Allergies, Adverse Reactions, Alerts Substance Reaction Severity [...] pneumococcal 20-valent conjugate vaccine 5 02/13/23 Given [id number] 12y+ bivalent booster vax 6 08/12/22 Given [...] 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 Given 1Result Comment: [id number] 2Result Comment: [facility]-[id number] left upper deltoid 3Result Comment: [facility]: [id number] 4Result Comment: [07/11/2017] [facility]; 37111-520-17 HIGH DOSE 5Result Comment: [id number] 6Result Comment: [facility]-[id number] left lower deltoid 7Result Comment: [facility]: [id number] 8Admin Note: H1N1 9Admin Note: recieved elsewhere [...] 02/02/24 14:30:00 EDT, Route to Pharmacy Electronically, [facility], 167.6, cm, 02/02/24 13:57:00EDT, Height, 97.8, kg, 04/29/22 14:30:00 EDT, Dry W... Start Date: 02/02/24 Status: Ordered fluticasone 50 mcg/inh nasal spray 2 sprays, Nasal, Daily, in each nostril use opposite hnad for each nostril, # 16 Gm, 1 Refills, Maintenance, 10/28/21 15:32:00 EST, [facility], 2 sprays Nasal Daily,Instr:in each [...] Personnel Name: Satnam BUNDY, Juliet Snyder Position: [facility] PCO Associate Professional Member Role: Primary Care Nurse Name: Jovana Pal NP Position: [facility] Associate Professional Member Role: PCP Address: Address: [address] [place] [address]- Name: Michaela Castillo RN Position: [facility] RN Member Role: Primary Care Nurse Name: Leticia Barth RN Position: [facility] Onco RN Member Role: Primary Care Nurse Name: Stacy Garcia RN Position: [facility] AMB Nurse Member Role: Primary Care Nurse Name: María Elena Dixon RN Position: [facility] RN Member Role: Primary Care Nurse Care Team Related Persons Name: ISAURO HARKINS Address: [address] [address] Name: AGNIESZKA MAURER Address: [address] [address]
--- OUTSIDE RECORDS SUMMARY | 2024-02-23 12:20 | XMS_ITS | Continuity of Care Document ---
Author Organization [facility] Trace Sae lt Address [address] [place] [address]- Care Team Providers Care Culturist Name Role Phone Edmond BRANDT, Wesley Kaur Primary Care Physician [phone] [place] [facility] [place](s): 09/06/21 - 10/06/21 [facility] Adult [address] [place] [address]- Allergies, Adverse Reactions, Alerts Substance Reaction Severity [...] 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 Given 1Result Comment: [facility]: [id number] 2Result Comment: [facility]: [id number] 3Result Comment: [07/11/2017] [facility]; 45640-860-32 HIGH DOSE 4Admin Note: H1N1 5Admin Note: recieved elsewhere Medications amLODIPine 5 mg oral tablet 1 tablet = 5 mg, By Mouth, Daily, # 90 tablet, 1 Refills, Maintenance, 06/02/21 17:26:00 EDT, [facility], 167.6, cm, 02/24/21 14:50:00 EDT, Height, 107.9, kg, 02/24/21 13:39:00 EDT, Dry Weight Start Date: 06/02/21 Status: Ordered atorvastatin 40 mg oral tablet 1 tablet, By Mouth, Daily, # 90 tablet, 1 Refills, [facility], 167.6, cm, 08/19/21 11:48:00 EST, [...] 02/22/21 14:32:00 EDT, Route to Pharmacy Electronically, [facility], Partial fill upon patient request [...] tablet, 0 Refills, Maintenance, 09/20/21 11:54:00 EST, [facility] # [facility], 167.6, cm, 08/19/21 11:48:00 [...]
--- OUTSIDE RECORDS SUMMARY | 2024-02-23 12:20 | XMS_ITS | Continuity of Care Document ---
Author Organization [facility] Sae lt Address [address] [place] [address]- Care Team Providers Care Construction And Maintenance Inspector Name Role Phone Edmond BRANDT, Wesley Kaur Primary Care Physician Encounter [facility] Date(s): 11/04/20 - 12/04/20 [facility] Adult [address] [place] [address]- Allergies, Adverse Reactions, Alerts Substance Reaction Severity [...] (PPV23) (oldterm) 12/01/01 Given 1Result Comment: [07/11/2017] [facility]; 69193-196-68 HIGH DOSE 2Admin Note: H1N1 3Admin Note: recieved elsewhere Medications acetaminophen 325 mg oral tablet 650 mg, By Mouth, Every 6 hours, Refills 0, Maintenance, 09/19/19 11:55:00 EST Start Date: 09/19/19 Status: Ordered amLODIPine 5 mg oral tablet 5 mg, 1, tablet, By Mouth, Daily, # 90 tablet, Refills 3, Tot. Refills 3, Maintenance, 06/29/20 14:01:00 EDT, Route to Pharmacy Electronically, [facility], 167.6, cm, 06/16/20 10:40:00 EDT, Height, 101.2, kg, 09/17/19 10:13:00 EST,... Start Date: 06/29/20 Status: Ordered atorvastatin 40 mg oral tablet 1 tablet = 40 mg, By Mouth, Daily, # 90 tablet, 1 Refills, Soft Stop, 09/07/20 14:24:00 EST, [facility], 167.6, cm, 08/19/20 7:30:00 EST, [...] 11/25/20 10:10:00 EST, Route to Pharmacy Electronically, [facility], 167.6, cm, 09/09/20 14:14:00 EST, Height, 101.2, kg, 09/17/19 10:13:00 ES... Start Date: 11/25/20 Status: Ordered fluticasone 50 mcg/inh nasal spray 2 sprays, Nasal, Daily, in each nostril use opposite hnad for each nostril, # 16 Gm, 1 Refills, Maintenance, 10/23/20 9:37:00 EST, [facility], 2 sprays Nasal Daily,Instr:in each [...] tablet, 1 Refills, Maintenance, 07/13/20 16:01:00 EDT, [facility], 167.6, cm, 06/30/20 9:53:00 EDT, Height, 101.2, kg, 09/17/19 10:13:00 EST, Dry Weight Start Date: 07/13/20 Status: Ordered omeprazole 20 mg oral enteric coated capsule 1 capsule = 20 mg, By Mouth, Daily, # 90 capsule, 3 Refills, Maintenance, 08/26/20 13:24:00 EST, ECCapsule, [facility], 167.6, cm, 08/19/20 7:30:00 EST, Height, 101.2, kg, 09/17/19 10:13:00 EST, Dry Weight Start Date: 08/26/20 Stop Date: 08/21/21 Status: Ordered Singulair 10 mg oral tablet 10 mg, 1, tablet, By Mouth, Daily in PM, # 90 tablet, Refills 3, Tot. Refills 3, Maintenance, 06/16/20 10:33:00 EDT, Route to Pharmacy Electronically, [facility], 167.6, cm, 06/16/20 10:24:00 EDT, [...]
--- OUTSIDE RECORDS SUMMARY | 2024-02-23 12:20 | XMS_ITS | Continuity of Care Document ---
Author Organization [facility] Trace Sae lt Address [address] [place] [address]- Care Team Providers Care Fisher Pot Name Role Phone Edmond BRANDT, Wesley Kaur Primary Care Physician En[place] [facility] [place] Date(s): 09/06/21 - 10/06/21 [facility] Adult [address] [place] [address]- Allergies, Adverse Reactions, Alerts Substance Reaction Severity [...] (PPV23) (oldterm) 12/01/01 Given 1Result Comment: [facility]: [id number] 2Result Comment: [facility]: 53876-233-19 3Result Comment: [07/11/2017] [facility]; 32838-032-90 HIGH DOSE 4Admin Note: H1N1 5Admin Note: recieved elsewhere Medications amLODIPine 5 mg oral tablet 1 tablet = 5 mg, By Mouth, Daily, # 90 tablet, 1 Refills, Maintenance, 06/02/21 17:26:00 EDT, [facility], 167.6, cm, 02/24/21 14:50:00 EDT, Height, 107.9, kg, 02/24/21 13:39:00 EDT, Dry Weight Start Date: 06/02/21 Status: Ordered atorvastatin 40 mg oral tablet 1 tablet, By Mouth, Daily, # 90 tablet, 1 Refills, [facility], 167.6, cm, 08/19/21 11:48:00 EST, [...] 02/22/21 14:32:00 EDT, Route to Pharmacy Electronically, [facility], Partial fill upon patient request [...] tablet, 0 Refills, Maintenance, 09/20/21 11:54:00 EST, [facility] # [facility], 167.6, cm, 08/19/21 11:48:00 [...]
--- OUTSIDE RECORDS SUMMARY | 2024-02-23 12:20 | XMS_ITS | Continuity of Care Document ---
Author Organization [facility] Trace Sae lt Address [address] [place] [address]- Care Team Providers Care Poke In Name Role Phone Kae MAP DRAFTER, Jovana Ghosh Primary Care Physician Encounter [facility] Date(s): 11/10/23 - 12/10/23 [facility] Adult [address] [place] [address]- Allergies, Adverse Reactions, Alerts Substance Reaction Severity [...] pneumococcal 20-valent conjugate vaccine 5 02/13/23 Given [id number] 12y+ bivalent booster vax 6 08/12/22 Given [...] 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 Given 1Result Comment: [id number] 2Result Comment: [facility]-[id number] left upper deltoid 3Result Comment: [facility]: 18993-506-10 4Result Comment: [07/11/2017] [facility]; 08821-816-29 HIGH DOSE 5Result Comment: [id number] 6Result Comment: [facility]-[id number] left lower deltoid 7Result Comment: [facility]: [id number] 8Admin Note: H1N1 9Admin Note: recieved elsewhere [...] Maintenance, 11/01/23 6:59:00EST, Route to Pharmacy Electronically, [facility], 167.6, cm, 09/04/23 14:35:00 EST, Height, 97.8, kg, 04/29/22 14:30:00 EDT, Dry We... Start Date: 11/01/23 Status: Ordered fluticasone 50 mcg/inh nasal spray 2 sprays, Nasal, Daily, in each nostril use opposite hnad for each nostril, # 16 Gm, 1 Refills, Maintenance, 10/28/21 15:32:00 EST, [facility], 2 sprays Nasal Daily,Instr:in each [...] 04/29/22 14:30... Start Date: 12/08/23 Status: Ordered Reclast 5 mg/100 mL intravenous [...] Team Personnel Name: Juliet Hay NP Position: [facility] PCO Associate Professional Member Role: Primary Care Nurse Name: Jovana Pal NP Position: [facility] Associate Professional Member Role: PCP Address: Address: [address] [place] [address]- Name: Michaela Castillo RN Position: [facility] RN Member Role: Primary Care Nurse Name: Leticia Barth RN Position: [facility] Onco RN Member Role: Primary Care Nurse Name: Stacy Garcia RN Position: [facility] SN RN Member Role: Primary Care Nurse Name: María Elena Dixon RN Position: [facility] RN Member Role: Primary Care Nurse Care Team Related Persons Name: ISAURO HARKINS Address: [address] [address] Name: AGNIESZKA MAURER Address: [address] [address]
--- OUTSIDE RECORDS SUMMARY | 2024-02-23 12:20 | XMS_ITS | Continuity of Care Document ---
Author Organization [facility] Address [address] [place] [address]- Care Team Providers Care Policy Director Name Role Phone Edmond BRANDT, Wesley Kaur Primary Care Physician [facility] Date(s): 04/16/20 - 05/16/20 [place] [address]- [facility] Attending Physician: Rosamaria Kitchen Admitting Physician: AdmRosamaria [...] Given 1Result Comment: [07/11/2017] [facility]; 63792-655-59 HIGH DOSE 2Admin Note: H1N1 3Admin Note: [...] 3 Refills, Maintenance, 01/10/20 8:38:00 EDT, [facility], 2 sprays Nasal Daily,Instr:in each [...]
--- OUTSIDE RECORDS SUMMARY | 2024-02-23 12:20 | XMS_ITS | Continuity of Care Document ---
Author Organization [facility] Trace Sae lt Address [address] [place] [address]- Care Team Providers Care Bulwark Carpenter Name Role Phone Kae COURT MESSENGER, Jovana Ghosh Primary Care Physician Encounter [facility] Date(s): 09/15/22 - 10/15/22 [facility] Adult [address] [place] [address]- Allergies, Adverse Reactions, Alerts Substance Reaction Severity Status ciprofloxacin diarrhea Active codeine nausea Active baclofen SEVERE GI UPSET Active Macrobid GI upset Active Spiriva 1 Active 1urinary Immunizations Given and Recorded Vaccine Date Status Refusal Reason [id number] 12y+ bivalent booster vax 1 08/12/22 Given [...] Given 1Result Comment: [facility]-[id number] left lower deltoid 2Result Comment: [facility]-[id number] left upper deltoid 3Result Comment: [facility]: 59902-194-37 4Result Comment: [07/11/2017] [facility]; 53977-149-41 HIGH DOSE 5Result Comment: [facility]: 8623-2431-67 6Admin Note: H1N1 7Admin Note: recieved elsewhere Medications amLODIPine 5 mg oral tablet 1 tablet, By Mouth, Daily, # 90 tablet, 3 Refills, Maintenance, 07/27/22 11:13:00 EDT, [facility], 167.6, cm, 05/10/22 16:16:00 EDT, Height, 97.8, kg, 04/29/22 14:30:00 EDT, Dry Weight Start Date: 07/27/22 Status: Ordered atorvastatin 40 mg oral tablet 1 tablet, By Mouth, Daily, # 90 tablet, 1 Refills, Maintenance, 08/26/22 9:23:00 EST, [facility], 167.6, cm, 08/12/22 11:12:00 EST, Height, 97.8, kg, 04/29/22 14:30:00 EDT, Dry Weight Start Date: 08/26/22 Status: Ordered betamethasone topical dipropionate 0.05% cream 1 application, Topically, 2 times a day, # 15 Gm, 0 Refills, Maintenance, 09/30/22 15:16:00 EST, Cream, [facility], Partial fill [...] EDT, Route to Pharmacy Electronically, [facility], 167.6, cm, 03/25/22 7:30:... Start Date: 03/25/22 Status: Ordered FLUoxetine 20 mg oral capsule 20 mg, 1, capsule, By Mouth, Daily, # 90 capsule, Refills 3, Tot. Refills 3, Maintenance, 08/18/22 8:26:00 EST, Route to Pharmacy Electronically, [facility] # [facility], Partial fill upon patient [...] 1 Refills, Maintenance, 10/10/22 11:08:00 EST, Tablet, [facility] # [facility], Partial fill upon patient [...] asthma. 3had EGD 4EGD pending 5seeing DR estraad.workup 6advised pre diabetic increased risk diabetes 7PHQ9;one 8PHQ(;one-=remission 9PHQ9 1=remission 10zung 38 today;normal in counselling 11rx Social History Social History Type Response Smoking Status Never smoker entered on: 10/09/13 Sex Patient Care team information Care Team Personnel Name: Leticia Alcantara RN Position: [facility] Onco RN Member Role: Primary Care Nurse Name: Juliet Hay NP Position: [facility] PCO Associate Professional Member Role: Primary Care Nurse Name: Jovana Pal NP Position: [facility] Associate Professional Member Role: PCP Address: Address: [address] [place] [address]- Name: Michaela Castillo RN Position: S RN Member Role: Primary Care Nurse Name: Stacy Garcia RN Position: S RN Member Role: Primary Care Nurse Name: María Elena Dixon RN Position: S RN Member Role: Primary Care Nurse Care Team Related Persons Name: ISAURO HARKINS Address: [address] [address] Name: AGNIESZKA MAURER Address: [address] [address]
--- OUTSIDE RECORDS SUMMARY | 2024-02-23 12:20 | XMS_ITS | Continuity of Care Document ---
Author Organization [facility] Sae lt Address [address] [place] [address]- Care Team Providers Care Colorist Dyer Name Role Phone Edmond BRANDT, Wesley Kaur Primary Care Physician [phone] [place] [facility] [place]07[place]22 - 03/09/22 [facility] Adult [address] [place] [address]- Allergies, Adverse Reactions, Alerts Substance Reaction Severity [...] 12/01/01 Given 1Result Comment: [facility]: [id number] 2Result Comment: [facility]: 65282-197-37 3Result Comment: [07/11/2017] [facility]; 26721-684-76 HIGH DOSE 4Admin Note: H1N1 5Admin Note: [...]
--- OUTSIDE RECORDS SUMMARY | 2024-02-23 12:20 | XMS_ITS | Continuity of Care Document ---
Author Organization [facility] Address [address] [place] [address]- Care Team Providers Care Water Treatment Plant Engineer Name Role Phone Wesley Pruitt MD Primary Care Physician Encounter [facility] Date(s): 10/04/19 - 11/12/[address] [address]- [facility] Discharge Disposition: A-D/C Home Attending Physician: Wesley Pruitt MD Admitting Physician: [...] 1Result Comment: [07/11/2017] [facility]; 18241-726-15 HIGH DOSE 2Admin Note: H1N1 3Admin Note: [...] patient request Start Date: 09/19/19 Status: Ordered senna 187 mg oral tablet 1 tablet = 8.6 mg, By Mouth, Daily at bedtime, 0 Refills, Maintenance, 09/19/19 11:56:00 EST, Tablet Start Date: 09/19/19 Status: Ordered Singulair 10 mg oral tablet 10 mg, 1, tablet, By Mouth, Daily in PM, # 90 tablet, Refills 2, Tot. Refills 2, Maintenance, 03/25/19 9:07:52 EDT, Route to Pharmacy Electronically, [id number], [facility] Start Date: 03/25/19 [...] pre diabetic increased risk diabetes 11exercises 12rx Social History Social History Type Response Smoking Status Never smoker entered on: 10/09/13 Sex
--- OUTSIDE RECORDS SUMMARY | 2024-02-23 12:21 | XMS_ITS | Continuity of Care Document ---
Author Organization [facility] Sae lt Address [address] [place] [address]- Care Team Providers Care Corrugated Sheet Material Sheeter Name Role Phone Kae SALVAGE CUTTER, Jovana Ghosh Primary Care Physician Encounter [facility] Date(s): 05/31/23 - 06/30/23 [facility] Adult [address] [place] [address]- Allergies, Adverse Reactions, Alerts Substance Reaction Severity Status ciprofloxacin diarrhea Active codeine nausea Active baclofen SEVERE GI UPSET Active Macrobid GI upset Active Spiriva 1 Active 1urinary Immunizations Given and Recorded Vaccine Date Status Refusal Reason pneumococcal 20-valent conjugate vaccine 1 02/13/23 Given [id number] 12y+ bivalent booster vax 2 08/12/22 Given [...] 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 Given 1Result Comment: [id number] 2Result Comment: [facility]-[id number] left lower deltoid 3Result Comment: [facility]-[id number] left upper deltoid 4Result Comment: [facility]: 86708-263-96 5Result Comment: [07/11/2017] [facility]; 21043-949-90 HIGH DOSE 6Result Comment: [facility]: [id number] 7Admin Note: H1N1 8Admin Note: recieved elsewhere Medications amLODIPine 5 mg oral tablet 1 tablet, By Mouth, Daily, # 90 tablet, 3 Refills, Maintenance, 07/27/22 11:13:00 EDT, [facility], 167.6, cm, 05/10/22 16:16:00 EDT, Height, 97.8, kg, 04/29/22 14:30:00 EDT, Dry Weight Start Date: 07/27/22 Status: Ordered atorvastatin 40 mg oral tablet 1 tablet, By Mouth, Daily, # 90 tablet, 1 Refills, Maintenance, 02/22/23 18:23:00 EDT, [facility], 167.6, cm, 02/13/23 15:04:00 EDT, [...] 05/17/23 13:17:00 EDT, Route to Pharmacy Electronically, [facility], 167.6, cm, 03/23/23 10:29:00 EDT, [...] 06/06/23 7:52:00 EDT, Route to Pharmacy Electronically, [facility], 167.6, cm, 03/23/23 10:29:0... [...] 14:31:00 EST, Route to Pharmacy Electronically, [facility], Partial fill upon patient request [...] Personnel Name: Satnam BUNDY, Juliet Snyder Position: [facility] PCO Associate Professional Member Role: Primary Care Nurse Name: Jovana Pal NP Position: [facility] Associate Professional Member Role: PCP Address: Address: [address] [place] [address]- Name: Michaela Castillo RN Position: S RN Member Role: Primary Care Nurse Name: Lary STRATTON, Leticia Barrientos Position: [facility] Onco RN Member Role: Primary Care Nurse Name: Stacy Garcia RN Position: [facility] RN Member Role: Primary Care Nurse Name: María Elena Dixon RN Position: S RN Member Role: Primary Care Nurse Care Team Related Persons Name: ISAURO HARKINS Address: [address] [address] Name: AGNIESZKA MAURER Address: [address] [address]
--- OUTSIDE RECORDS SUMMARY | 2024-02-23 12:21 | XMS_ITS | Continuity of Care Document ---
Author Organization [facility] Address [address] [place] [address]- Care Team Providers Care Wax Room Supervisor Name Role Phone Edmond BRANDT, Wesley Kaur Primary Care Physician Encounter [facility] [place] Date(s): 04/17/19 - 09/14/[address] [address]- [facility] Attending Physician: Camilo Boone MD Admitting Physician: Camilo Boone MD Allergies, Adverse Reactions, Alerts Substance Reaction [...] (oldterm) 12/01/01 Given 1Result Comment: [07/11/2017] [facility]; 66947-702-77 HIGH DOSE 2Admin Note: H1N1 3Admin Note: recieved elsewhere Medications atorvastatin 40 mg oral tablet 1 tablet = 40 mg, By Mouth, Daily, # 90 tablet, 1 Refills, Soft Stop, 09/09/19 8:29:25 EST, 167, cm, 08/21/19 11:23:53 EST, Height, 98.6, kg, 04/25/19 21:28:36 EDT, Dry Weight Start Date: 09/09/19 Status: Ordered celecoxib 200 mg oral capsule 1 capsule = 200 mg, By Mouth, Daily, PRN Pain , Severe, # 30 capsule, 0 Refills, Maintenance, 04/25/19 17:35:45 EDT, Capsule Start Date: 04/25/19 Status: Ordered cholecalciferol 2000 intl units oral [...] 05/06/19 8:33:20 EDT, Route to Pharmacy Electronically, [id number], [facility], DECREASED DOSE Start Date: 05/06/19 Status: Ordered fluticasone 50 mcg/inh nasal spray 2 sprays, Nasal, Daily, in each nostril use opposite hnad for each nostril, # 3 box, 3 Refills, Maintenance, 04/05/18 14:50:48 EDT, 2 sprays Nasal Daily,Instr:in each nostril; use opposite hnad for each nostril Start Date: 04/05/18 Status: Ordered LORazepam 0.5 mg oral tablet [...] 03/25/19 9:07:52 EDT, Route to Pharmacy Electronically, [id number], [facility] Start Date: 03/25/19 [...] without esophagitis egd 2018(Confirmed) 7, 8 Active IBS (irritable bowel syndrome)(Confirmed) 9 Active Impaired fasting glucose(Confirmed) 10 Active LVH (left ventricular hypert rophy) Echo 2016(Confirmed) Active Epicondylitis elbow, medial( Confirmed) 11 Active Obesity (BMI 30-39.9)(Confirmed) Active Left knee DJD end stage(Confirmed) Active Chronic venous insufficiency(Confirmed) Active PND (post-nasal [...]
--- OUTSIDE RECORDS SUMMARY | 2024-02-23 12:21 | XMS_ITS | Continuity of Care Document ---
Author Organization [facility] Address [address] [place] [address]- Care Team Providers Care Rf Design Engineer Name Role Phone Edmond BRANDT, Wesley Kaur Primary Care Physician En[place] [facility] [place] Date(s): 09/06/21 - 10/06/21 [facility] [place] Adult [address] [place] [address]- Allergies, Adverse Reactions, Alerts Substance Reaction Severity [...] influenza virus vaccine, inactivated 3 07/11/17 Gi amrlene influenza virus vaccine, inactivated 07/22/16 Give n [...] 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 Given 1Result Comment: [facility]: [id number] 2Result Comment: [facility]: 70395-179-33 3Result Comment: [07/11/2017] [facility]; 19406-923-69 HIGH DOSE 4Admin Note: H1N1 5Admin Note: recieved elsewhere Medications amLODIPine 5 mg oral tablet 1 tablet = 5 mg, By Mouth, Daily, # 90 tablet, 1 Refills, Maintenance, 06/02/21 17:26:00 EDT, [facility], 167.6, cm, 02/24/21 14:50:00 EDT, Height, 107.9, kg, 02/24/21 13:39:00 EDT, Dry Weight Start Date: 06/02/21 Status: Ordered atorvastatin 40 mg oral tablet 1 tablet, By Mouth, Daily, # 90 tablet, 1 Refills, [facility], 167.6, cm, 08/19/21 11:48:00 EST, [...] 02/22/21 14:32:00 EDT, Route to Pharmacy Electronically, [facility], Partial fill upon patient request [...] tablet, 0 Refills, Maintenance, 09/20/21 11:54:00 EST, [facility], 167.6, cm, 08/19/21 11:48:00 [...]
--- OUTSIDE RECORDS SUMMARY | 2024-02-23 12:21 | XMS_ITS | Continuity of Care Document ---
Author Organization [facility] S[facility] Address [address] [place] [address]- Care Team Providers Care Frame Sample And Pattern Supervisor Name Role Phone Edmond BRANDT, Wesley Kaur Primary Care Physician [facility]counter [facility] Date(s): 08/20/21 - 09/19/21 [facility] Adult [address] [place] [address]- Allergies, Adverse Reactions, Alerts Substance Reaction Severity [...] 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 Given 1Result Comment: [facility]: [id number] 2Result Comment: [facility]: 46991-334-00 3Result Comment: [07/11/2017] [facility]; 14604-749-34 HIGH DOSE 4Admin Note: H1N1 5Admin Note: [...] 14:32:00 EDT, Route to Pharmacy Electronically, [facility], Partial fill upon patient [...] 1 Refills, Maintenance, 07/26/21 14:47:00 EDT, [facility], 167.6, cm, 07/26/21 14:38:00 [...]
--- OUTSIDE RECORDS SUMMARY | 2024-02-23 12:21 | XMS_ITS | Continuity of Care Document ---
Author Organization [facility] Address [address] [place] [address]- Care Team Providers Care Wine Steward/Stewardess Name Role Phone Edmond BRANDT, Wesley Kaur Primary Care Physician [facility] Date(s): 05/21/20 - 06/20/20 [facility] [address] [place] [address]- [facility] Allergies, Adverse Reactions, Alerts Substance Reaction [...] (PPV23) (oldterm) 12/01/01 Given 1Result Comment: [07/11/2017] [facility]; 11054-884-39 HIGH DOSE 2Admin Note: H1N1 3Admin Note: recieved elsewhere Medications acetaminophen 325 mg oral tablet 650 mg, By Mouth, Every 6 hours, Refills 0, Maintenance, 09/19/19 11:55:00 EST Start Date: 09/19/19 Status: Ordered amLODIPine 5 mg oral tablet 5 mg, 1, tablet, By Mouth, Daily, # 30 tablet, Refills 0, Tot. Refills 0, Maintenance, 06/16/20 10:40:00 EDT, Route to Pharmacy Electronically, [facility], 167.6, cm, 06/16/20 10:40:00 EDT, Height, 101.2, kg, 09/17/19 10:13:00 EST, Dry Weight Start Date: 06/16/20 Status: Ordered atorvastatin 40 mg oral tablet [...] 3 Refills, Maintenance, 05/14/20 13:34:00 EDT, Tablet, [facility] # [facility], 167.6, cm, 05/14/20 12:44:00 [...] 05/07/20 9:11:00 EDT, Route to Pharmacy Electronically, [facility], 167.6, cm, 05/07/20 8:56:00 EDT, Height, 101.2, kg, 09/17/19 10:13:00 EST,... Start Date: 05/07/20 Status: Ordered fluticasone 50 mcg/inh nasal spray 2 sprays, Nasal, Daily, in each nostril use opposite hnad for each nostril, # 16 Gm, 3 Refills, Maintenance, 01/10/20 8:38:00 EDT, [facility], 2 sprays Nasal Daily,Instr:in each [...] 1 Refills, Maintenance, 03/26/20 15:58:00 EDT, [facility], 167.6, cm, 03/10/20 15:20:00 EDT, Height, 101.2, kg, 09/17/1910:13:00 EST, Dry Weight Start Date: 03/26/20 Status: Ordered omeprazole 20 mg oral enteric coated capsule 1 capsule = 20 mg, By Mouth, Daily, # 90 capsule, 3 Refills, Maintenance, 08/15/19 10:35:59 EST, ECCapsule, [facility] Start Date: 08/15/19 Stop Date: [...]
--- OUTSIDE RECORDS SUMMARY | 2024-02-23 12:21 | XMS_ITS | Continuity of Care Document ---
Author Organization [facility] Trace Sae lt Address [address] [place] [address]- Care Team Providers Care Structural Designer Name Role Phone Edmond BRANDT, Wesley Kaur Primary Care Physician [facility] Date(s): 03/02/21 - 04/01/21 [facility] [place] Adult [address] [place] [address]- Allergies, Adverse Reactions, Alerts Substance Reaction Severity [...] (PPV23) (oldterm) 12/01/01 Given 1Result Comment: [07/11/2017] [facility]; 51994-096-53 HIGH DOSE 2Admin Note: H1N1 3Admin Note: recieved elsewhere Medications amLODIPine 5 mg oral tablet 5 mg, 1, tablet, By Mouth, Daily, # 90 tablet, Refills 3, Tot. Refills 3, Maintenance, 06/29/20 14:01:00 EDT, Route to Pharmacy Electronically, [facility], 167.6, cm, 06/16/20 10:40:00 EDT, Height, 101.2, kg, 09/17/19 10:13:00 EST,... Start Date: 06/29/20 Status: Ordered atorvastatin 40 mg oral tablet 1 tablet = 40 mg, By Mouth, Daily, # 90 tablet, 1 Refills, Soft Stop, 03/04/21 12:12:00 EDT, [facility], 167.6, cm, 02/24/21 14:50:00 EDT, [...] 02/22/21 14:32:00 EDT, Route to Pharmacy Electronically, [facility], Partial fill upon patient request [...] tablet, 0 Refills, Maintenance, 01/11/21 10:54:00 EDT, [facility], 167.6, cm, 12/07/20 13:11:00 EST, Height, 101.2, kg, 09/17/1910:13:00 EST, Dry Weight Start Date: 01/11/21 Status: Ordered omeprazole 20 mg oral enteric coated capsule 1 capsule = 20 mg, By Mouth, Daily, # 90 capsule, 3 Refills, Maintenance, 08/26/20 13:24:00 EST, ECCapsule, [facility], 167.6, cm, 08/19/20 7:30:00 EST, [...]
--- OUTSIDE RECORDS SUMMARY | 2024-02-23 12:21 | XMS_ITS | Continuity of Care Document ---
Author Organization [facility] Sae lt Address [address] [place] [address]- Care Team Providers Care Livestock Rancher Name Role Phone Jovana Pal NP Primary Care Physician [phone] Encounter [facility] Date(s): 02/13/23 - 02/20/23 [facility] Adult [address] [place] [address]- Encounter Diagnosis Chronic renal disease, stage 3, moderately decreased glomerular filtration rate (GFR) between 30-59mL/min/1.73 square meter(Discharge Diagnosis) - 02/13/23 Hypertension(Discharge Diagnosis) - 02/13/23 Essential familial hyperlipidemia(Discharge Diagnosis) - 02/13/23 Anxiety(Discharge Diagnosis) - 02/13/23 Depression, major(Discharge Diagnosis) - 02/13/23 Secondary hyperparathyroidism/endocrinology(Discharge Diagnosis) - 02/13/23 Severe obesity (BMI 35.0-39.9) with comorbidity(Discharge Diagnosis) - 02/13/23 Osteoporosis(Discharge Diagnosis) - 02/13/23 GERD without esophagitis egd 2019(Discharge Diagnosis) - 02/13/23 Impaired fasting glucose(Discharge Diagnosis) - 02/13/23 Anemia, macrocytic(Discharge Diagnosis) - 02/14/23 Attending Physician: Jovana Pal NP Referring Physician: Edmond BRANDT, Wesley Kaur Allergies, Adverse Reactions, Alerts Substance Reaction Severity Status ciprofloxacin diarrhea Active codeine nausea Active baclofen SEVERE GI UPSET Active Macrobid GI upset Active Spiriva 1 Active 1urinary Immunizations Given and Recorded Vaccine Date Status Refusal Reason pneumococcal 20-valent conjugate vaccine 1 02/13/23 Given [id number] 12y+ bivalent booster vax 2 08/12/22 Given influenza virus vaccine, inactivated 3 08/12/22 Gi marlene influenza virus vaccine, inactivated 4 10/25/21 Gi marlene influenza virus vaccine, inactivated 08/19/20 [...] 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 Given 1Result Comment: [id number] 2Result Comment: [facility]-[id number] left lower deltoid 3Result Comment: [facility]-[id number] left upper deltoid 4Result Comment: [facility]: 04886-976-23 5Result Comment: [07/11/2017] [facility]; 69071-766-54 HIGH DOSE 6Result Comment: [facility]: [id number] 7Admin Note: H1N1 8Admin Note: recieved elsewhere [...] Dry Weight Start Date: 08/26/22 Status: Ordered buPROPion 150 mg/24 hours (XL) [...] Effective Dates Health Status Clinical Service Informant Chronic renal disease, stage 3, moderately decreased glomerular filtration rate (GFR) between 30-59 mL/min/1.73 square meter Discharge Diagnosis 02/13/23 Hypertension Discharge Diagnosis 02/13/23 Essential familial hyperlipidemia Discharge Diagnosis 02/13/23 Anxiety Discharge Diagnosis 02/13/23 Depression, major Discharge Diagnosis 02/13/23 Secondary hyperparathyroidism/ endocrinology Discharge Diagnosis 02/13/23 Severe obesity (BMI 35.0-39.9) with comorbidity Discharge Diagnosis 02/13/23 Osteoporosis Discharge Diagnosis 02/13/23 GERD without esophagitis egd 2019 Discharge Diagnosis 02/13/23 Impaired fasting glucose Discharge Diagnosis 02/13/23 Anemia, macrocytic Discharge Diagnosis 02/14/23 Vital Signs Most recent to oldest [Reference Range]: 1 2 3 Height 167.6 cm (02/13/23 3:04 PM) 167.6 cm (02/13/23 2:40 PM) 167.6 cm (02/13/23 2:32 PM) Weight 108.0 kg (02/13/23 2:32 PM) Oxygen Saturation [94-100 %] 97 % (02/13/23 2:32 PM) Pulse Rate [55-90 bpm] 66 bpm (02/13/23 2:32 PM) Body Mass Index [18.5-24.99 kg/m2] 38.45 kg/m2 *>HHI* (02/13/23 2:32 PM) Blood Pressure [90-138/55-84 mm Hg] 130/52mm Hg (02/13/23 3:04 PM) 132/35mm Hg (02/13/23 2:40 PM) 144/37mm Hg *H* (02/13/23 2:32 PM) Mode of Delivery (Oxygen) Room air (02/13/23 2:32 PM) Blood pressure sites Arm, left (02/13/23 3:04 PM) Arm, left (02/13/23 2:40 PM) Arm, left (02/13/23 2:32 PM) Weight Obtained Via Standing scale (02/13/23 2:32 PM) Social History Social History Type Response Smoking Status Never smoker entered on: 10/09/13 Sex Note * Melody Valdez: PERFORM, SIGN, VERIFY Event Display: Patient Education/Instruction Authored Date: [id number] [facility] *BMP Orin Donaldson Clinical Summary Name BRIANNA HARKINS Age 77 Years 1945 PCP Jovana Pal NP PCP Visit Date 02/13/2023 14:28:00 Additional Instructions: Scheduled Appointments?? Future Appointments ?*[facility] ?[address]??[place],??[place],??[address] ?Phone:??--?Fax:??-- ?Appt. Date:??04/20/2023?4:00 PM ?Scheduled Provider:??Lisandro Coleman MD Follow-Up Instructions ?? Diagnosis Anxiety disorder, unspecified; Secondary hyperparathyroidism of renal origin; Gastro-esophageal reflux disease without esophagitis; Other hyperlipidemia; Essential (primary) hypertension; Major depressive disorder, single episode, unspecified; Chronic kidney disease, stage 3 unspecified; Morbid (severe) obesity due to excess calories; Age-related osteoporosis without current pathological fracture; Impaired fasting glucose Medications: Please continue your medications until treatment is completed or stopped by your provider. Discuss any questions related to medications with your provider. Medications to Continue Taking That Have Changed These medications were not printed or sent to your pharmacy - Lorazepam (LORazepam 0.5 mg oral tablet) 1 [...] oral tablet) 1 tablet By Mouth Daily -;2 weekend. Refills: 11. Next Dose: Cyanocobalamin (Eligen [...] oral capsule) 1 capsule Oral Daily. Refills: 0. Next Dose: Fluticasone Nasal (fluticasone 50 mcg/inh [...] Medications Given This Visit Medication Dose Route pneumococcal 20-valent conjugate vaccine (pneumococcal 20-valent vacc) 0.5 mL Intramuscular Future Orders ?Hemoglobin A1C (Monitoring)? Order Date:02/13/23?- Complete on or after?02/13/23 ?Vitamin D 25 Hydroxy Level? Order Date:02/13/23?- Complete on or after?02/13/23 ?CBC? Order Date:02/13/23?- Complete on or after?02/13/23 ?Comprehensive Metabolic Panel? Order Date:02/13/23?- Complete on or after?02/13/23 ?PTH Intact? Order Date:02/13/23?- Complete on or after?02/13/23 ?Direct LDL? Order Date:02/13/23?- Complete on or after?02/13/23 ?TSH? Order Date:02/13/23?- Complete on or after?02/13/23 ?Vitamin B12 Level? Order Date:02/13/23?- Complete on or after?02/13/23 Vital Signs Height 167.6 cm Weight 108.0 kg BMI 38.45 kg/m2 Blood Pressure 130 mm Hg/52 mm Hg Temperature Pulse Rate 66 bpm Respiratory Rate 02 Sat Mode of Delivery 97 %/Room air You can now view a summary of your hospital visit from the comfort of your home through a free online portal called [employer]. [employer] is a website that allows you to securely view your medical information including discharge summary, medications and follow-up visits. ??You can alsosend a secure electronic message to your doctor???s office to request appointments, renew medications or just ask a question. You can enroll at [email or web address] or register during your next office visit. [...] primary care provider, you may find a [facility] provider by calling [facility] at [phone]. For information about the plan of care including goals and instructions for your diagnosis, please see the patient education orders section of this document. Patient Education Materials?? The content of this educational material or handout may have been modified, supplemented, or adapted from its original content and format to support your individualized medical care. * Melody Valdez: PERFORM, SIGN, VERIFY Event Display: Patient Education/Instruction Authored Date: [id number] [facility] *BMP So Trace Mendoza Clinical Summary Name BRIANNA HARKINS Age 77 Years 1945 PCP Kae PERPETUAL INVENTORY CLERK, Jovana Ghosh PCP Visit Date 02/13/2023 14:28:00 Additional Instructions: Scheduled Appointments?? Future Appointments ?*[facility] ?[address],??[place],??[address] ?Phone:??--?Fax:??-- ?Appt. Date:??04/20/2023?4:00 PM ?Scheduled Provider:??Lisandro Coleman MD Follow-Up Instructions ?? Diagnosis Anxiety disorder, unspecified; Secondary hyperparathyroidism of renal origin; Gastro-esophageal reflux disease without esophagitis; Other hyperlipidemia; Essential (primary) hypertension; Major depressive disorder, single episode, unspecified; Chronic kidney disease, stage 3 unspecified; Morbid (severe) obesity due to excess calories; Age-related osteoporosis without current pathological fracture; Impaired fasting glucose Medications: Please continue your medications until treatment is completed or stopped by your provider. Discuss any questions related to medications with your provider. Medications to Continue Taking That Have Changed These medications were not printed or sent to your pharmacy - Lorazepam (LORazepam 0.5 mg oral tablet) 1 [...] oral tablet) 1 tablet By Mouth Daily m-f;2 weekend. Refills: 11. Next Dose: Cyanocobalamin (Eligen [...] oral capsule) 1 capsule Oral Daily. Refills: 0. Next Dose: Fluticasone Nasal (fluticasone 50 mcg/inh [...] Medications Given This Visit Medication Dose Route pneumococcal 20-valent conjugate vaccine (pneumococcal 20-valent vacc) 0.5 mL Intramuscular Future Orders ?Hemoglobin A1C (Monitoring)? Order Date:02/13/23?- Complete on or after?02/13/23 ?Vitamin D 25 Hydroxy Level? Order Date:02/13/23?- Complete on or after?02/13/23 ?CBC? Order Date:02/13/23?- Complete on or after?02/13/23 ?Comprehensive Metabolic Panel? Order Date:02/13/23?- Complete on or after?02/13/23 ?PTH Intact? Order Date:02/13/23?- Complete on or after?02/13/23 ?Direct LDL? Order Date:02/13/23?- Complete on or after?02/13/23 ?TSH? Order Date:02/13/23?- Complete on or after?02/13/23 ?Vitamin B12 Level? Order Date:02/13/23?- Complete on or after?02/13/23 Vital Signs Height 167.6 cm Weight 108.0 kg BMI 38.45 kg/m2 Blood Pressure 130 mm Hg/52 mm Hg Temperature Pulse Rate 66 bpm Respiratory Rate 02 Sat Mode of Delivery 97 %/Room air You can now view a summary of your hospital visit from the comfort of your home through a free online portal called [employer]. [employer] is a website that allows you to securely view your medical information including discharge summary, medications and follow-up visits. ??You can alsosend a secure electronic message to your doctor???s office to request appointments, renew medications or just ask a question. You can enroll at [email or web address] or register during your next office visit. [...] primary care provider, you may find a [facility] provider by calling [facility] [employer] at [phone]. For information about the plan of care [...] Team Personnel Name: Juliet Hay NP Position: [facility] PCO Associate Professional Member Role: Primary Care Nurse Name: Jovana Pal NP Position: [facility] Associate Professional Member Role: PCP Address: Address: [address] [place] [address]- Name: Michaela Castillo RN Position: S RN Member Role: Primary Care Nurse Name: Leticia Barth RN Position: [facility] Onco RN Member Role: Primary Care Nurse Name: María Elena Dxion RN Position: S RN Member Role: Primary Care Nurse Care Team Related Persons Name: ISAURO HARKINS Address: [address] [address] Name: AGNIESZKA MAURER Address: [address] [address]
--- OUTSIDE RECORDS SUMMARY | 2024-02-23 12:21 | XMS_ITS | Continuity of Care Document ---
Author Organization [facility] Trace Sae lt Address [address] [place] [address]- Care Team Providers Care Computed Tomography Technician Name Role Phone Wesley Pruitt MD Primary Care Physician [phone] En[place] [facility] Date[place]s): 06/24/20 - 07/26/20 [facility] Adult [address] [place] [address]- [facility] Attending Physician: Wesley Pruitt MD Referring Physician: Holly BUNDY, Nathalie Allergies, Adverse Reactions, Alerts Substance Reaction Severity [...] (PPV23) (oldterm) 12/01/01 Given 1Result Comment: [07/11/2017] [facility]; 25040-144-30 HIGH DOSE 2Admin Note: H1N1 3Admin Note: recieved elsewhere Medications acetaminophen 325 mg oral tablet 650 mg, By Mouth, Every 6 hours, Refills 0, Maintenance, 09/19/19 11:55:00 EST Start Date: 09/19/19 Status: Ordered amLODIPine 5 mg oral tablet 5 mg, 1, tablet, By Mouth, Daily, # 90 tablet, Refills 3, Tot. Refills 3, Maintenance, 06/29/20 14:01:00 EDT, Route to Pharmacy Electronically, [facility], 167.6, cm, 06/16/20 10:40:00 EDT, Height, 101.2, kg, 09/17/19 10:13:00 EST,... Start Date: 06/29/20 Status: Ordered atorvastatin 40 mg oral tablet 1 tablet = 40 mg, By Mouth, Daily, # 90 tablet, 1 Refills, Soft Stop, 03/09/20 11:18:00 EDT, [facility], 167.6, cm, 09/19/19 7:55:00 EST, [...] 05/07/20 9:11:00 EDT, Route to Pharmacy Electronically, [facility], 167.6, cm, 05/07/20 8:56:00 EDT, Height, 101.2, kg, 09/17/19 10:13:00 EST,... Start Date: 05/07/20 Status: Ordered fluticasone 50 mcg/inh nasal spray 2 sprays, Nasal, Daily, in each nostril use opposite hnad for each nostril, # 16 Gm, 3 Refills, Maintenance, 01/10/20 8:38:00 EDT, [facility], 2 sprays Nasal Daily,Instr:in each [...] tablet, 1 Refills, Maintenance, 07/13/20 16:01:00 EDT, [facility], 167.6, cm, 06/30/20 9:53:00 EDT, Height, 101.2, kg, 09/17/19 10:13:00 EST, Dry Weight Start Date: 07/13/20 Status: Ordered omeprazole 20 mg oral enteric coated capsule 1 capsule = 20 mg, By Mouth, Daily, # 90 capsule, 3 Refills, Maintenance, 08/15/19 10:35:59 EST, ECCapsule, [facility] Start Date: 08/15/19 Stop Date: [...]
--- OUTSIDE RECORDS SUMMARY | 2024-02-23 12:21 | XMS_ITS | Continuity of Care Document ---
Author Organization [facility] Trace Sae lt Address [address] [place] [address]- Care Team Providers Care Student Counselor Name Role Phone Edmond BRANDT, Wesley Kaur Primary Care Physician [phone] [facility] Date(s): 02/21/22 - 03/23/22 [facility] Adult [address] [place] [address]- Allergies, Adverse Reactions, Alerts Substance Reaction Severity [...] (PPV23) (oldterm) 12/01/01 Given 1Result Comment: [facility]: [id number] 2Result Comment: [facility]: [id number] 3Result Comment: [07/11/2017] [facility]; 39507-565-58 HIGH DOSE 4Admin Note: H1N1 5Admin Note: [...]
--- OUTSIDE RECORDS SUMMARY | 2024-02-23 12:21 | XMS_ITS | Continuity of Care Document ---
Author Organization [facility] Address [address] [place] [address]- Care Team Providers Care Inventory Assistant Name Role Phone Edmond BRANDT, Wesley Kaur Primary Care Physician [phone] [facility] Date(s): 05/18/20 - 06/17/20 [facility] [address] [place] [address]- [facility] Allergies, Adverse Reactions, Alerts Substance Reaction Severity Status ciprofloxacin diarrhea Active codeine nausea Active baclofen SEVERE GI UPSET Active Macrobid GI upset Active Spiriva 1 Active 1urinary Immunizations Given and Recorded Vaccine Date Status Refusal Reason influenza virus vaccine, inactivated 08/06/19 Give n influenza virus vaccine, inactivated 08/03/18 Give n influenza virus vaccine, inactivated 1 07/11/17 Gi marlnee influenza virus vaccine, inactivated 07/22/16 Give n [...] Comment: [07/11/2017] [facility]; 07297-503-23 HIGH DOSE 2Admin Note: H1N1 3Admin Note: recieved elsewhere Medications acetaminophen 325 mg oral tablet 650 mg, By Mouth, Every 6 hours, Refills 0, Maintenance, 09/19/19 11:55:00 EST Start Date: 09/19/19 Status: Ordered amLODIPine 5 mg oral tablet 5 mg, 1, tablet, By Mouth, Daily, # 30 tablet, Refills 0, Tot. Refills 0, Maintenance, 06/16/20 10:40:00 EDT, Route to Pharmacy Electronically, [facility], 167.6, cm, 06/16/20 10:40:00 [...] 3 Refills, Maintenance, 05/14/20 13:34:00 EDT, Tablet, [facility], 167.6, cm, 05/14/20 12:44:00 [...] 05/07/20 9:11:00 EDT, Route to Pharmacy Electronically, [facility], 167.6, cm, 05/07/20 8:56:00 EDT, Height, 101.2, kg, 09/17/19 10:13:00 EST,... Start Date: 05/07/20 Status: Ordered fluticasone 50 mcg/inh nasal spray 2 sprays, Nasal, Daily, in each nostril use opposite hnad for each nostril, # 16 Gm, 3 Refills, Maintenance, 01/10/20 8:38:00 EDT, [facility], 2 sprays Nasal Daily,Instr:in each [...] 1 Refills, Maintenance, 03/26/20 15:58:00 EDT, [facility], 167.6, cm, 03/10/20 15:20:00 EDT, Height, 101.2, kg, 09/17/1910:13:00 EST, Dry Weight Start Date: 03/26/20 Status: Ordered omeprazole 20 mg oral enteric coated capsule 1 capsule = 20 mg, By Mouth, Daily, # 90 capsule, 3 Refills, Maintenance, 08/15/19 10:35:59 EST, ECCapsule, [facility] Start Date: 08/15/19 Stop Date: [...]
--- OUTSIDE RECORDS SUMMARY | 2024-02-23 12:21 | XMS_ITS | Continuity of Care Document ---
Author Organization [facility] Sae lt Address [address] [place] [address]- Care Team Providers Care Business Services Tech Name Role Phone Edmond BRANDT, Wesley Kaur Primary Care Physician [place] [facility] [place](s): 08/20/21 - 09/19/21 [facility] Adult [address] [place] [address]- Allergies, Adverse Reactions, Alerts Substance Reaction Severity [...] Given 1Result Comment: [facility]: [id number] 2Result Comment: [facility]: [id number] 3Result Comment: [07/11/2017] [facility]; 02721-149-70 HIGH DOSE 4Admin Note: H1N1 5Admin Note: [...] 14:32:00 EDT, Route to Pharmacy Electronically, [facility], Partial fill upon patient request [...] 1 Refills, Maintenance, 07/26/21 14:47:00 EDT, [facility], 167.6, cm, 07/26/21 14:38:00 EDT, [...]
--- OUTSIDE RECORDS SUMMARY | 2024-02-23 12:21 | XMS_ITS | Continuity of Care Document ---
Author Organization [facility] Sae lt Address [address] [place] [address]- Care Team Providers Care Manager Project Name Role Phone Kae GAMING HOST, Jovana Ghosh Primary Care Physician [facility]counter [facility] Date(s): 09/14/22 - 10/14/22 [facility] Adult [address] [place] [address]- Allergies, Adverse Reactions, Alerts Substance Reaction Severity Status ciprofloxacin diarrhea Active codeine nausea Active baclofen SEVERE GI UPSET Active Macrobid GI upset Active Spiriva 1 Active 1urinary Immunizations Given and Recorded Vaccine Date Status Refusal Reason [id number] 12y+ bivalent booster vax 1 08/12/22 Given [...] 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 Given 1Result Comment: [facility]-[id number] left lower deltoid 2Result Comment: [facility]-[id number] left upper deltoid 3Result Comment: [facility]: [id number] 4Result Comment: [07/11/2017] [facility]; 38997-514-83 HIGH DOSE 5Result Comment: [facility]: [id number] 6Admin Note: H1N1 7Admin Note: recieved elsewhere Medications amLODIPine 5 mg oral tablet 1 tablet, By Mouth, Daily, # 90 tablet, 3 Refills, Maintenance, 07/27/22 11:13:00 EDT, [facility], 167.6, cm, 05/10/22 16:16:00 EDT, Height, 97.8, kg, 04/29/22 14:30:00 EDT, Dry Weight Start Date: 07/27/22 Status: Ordered atorvastatin 40 mg oral tablet 1 tablet, By Mouth, Daily, # 90 tablet, 1 Refills, Maintenance, 08/26/22 9:23:00 EST, [facility], 167.6, cm, 08/12/22 11:12:00 EST, Height, 97.8, kg, 04/29/22 14:30:00 EDT, Dry Weight Start Date: 08/26/22 Status: Ordered betamethasone topical dipropionate 0.05% cream 1 application, Topically, 2 times a day, # 15 Gm, 0 Refills, Maintenance, 09/30/22 15:16:00 EST, Cream, [facility] # [facility], [...] 03/25/22 8:06:00 EDT, Route to Pharmacy Electronically, [facility] # [facility], 167.6, cm, 03/25/22 7:30:... Start Date: 03/25/22 Status: Ordered FLUoxetine 20 mg oral capsule 20 mg, 1, capsule, By Mouth, Daily, # 90 capsule, Refills 3, Tot. Refills 3, Maintenance, 08/18/22 8:26:00 EST, Route to Pharmacy Electronically, [facility] # [facility], Partial fill upon patient [...] 1 Refills, Maintenance, 10/10/22 11:08:00 EST, Tablet, [facility] # [facility], Partial fill upon patient [...] Team Personnel Name: Leticia Alcantara RN Position: [facility] Onco RN Member Role: Primary Care Nurse Name: Juliet Hay NP Position: [facility] PCO Associate Professional Member Role: Primary Care Nurse Name: Jovana Pal NP Position: [facility] PCO Associate Professional Member Role: PCP Address: Address: [address] [place] [address]- Name: Michaela Castillo RN Position: S RN Member Role: Primary Care Nurse Name: Stacy Garcia RN Position: S RN Member Role: Primary Care Nurse Name: María Elena Dixon RN Position: S RN Member Role: Primary Care Nurse Care Team Related Persons Name: ISAURO HARKINS Address: [address] [address] Name: AGNIESZKA MAURER Address: [address] [address]
--- OUTSIDE RECORDS SUMMARY | 2024-02-23 12:21 | XMS_ITS | Continuity of Care Document ---
Author Organization [facility] Address [address] [place] [address]- Care Team Providers Care After School Program Assistant Name Role Phone Wesley Pruitt MD Primary Care Physician Encounter [facility] Date(s): 10/05/20 - 11/12/[address] [address]- Discharge Disposition: A-D/C Home Attending Physician: Wesley [...] (PPV23) (oldterm) 12/01/01 Given 1Result Comment: [07/11/2017] [facility]; 49561-122-24 HIGH DOSE 2Admin Note: H1N1 3Admin Note: recieved elsewhere Medications acetaminophen 325 mg oral tablet 650 mg, By Mouth, Every 6 hours, Refills 0, Maintenance, 09/19/19 11:55:00 EST Start Date: 09/19/19 Status: Ordered amLODIPine 5 mg oral tablet 5 mg, 1, tablet, By Mouth, Daily, # 90 tablet, Refills 3, Tot. Refills 3, Maintenance, 06/29/20 14:01:00 EDT, Route to Pharmacy Electronically, [facility], 167.6, cm, 06/16/20 10:40:00 EDT, Height, 101.2, kg, 09/17/19 10:13:00 EST,... Start Date: 06/29/20 Status: Ordered atorvastatin 40 mg oral tablet 1 tablet = 40 mg, By Mouth, Daily, # 90 tablet, 1 Refills, Soft Stop, 09/07/20 14:24:00 EST, [facility], 167.6, cm, 08/19/20 7:30:00 EST, [...] 9:11:00 EDT, Route to Pharmacy Electronically, [facility], 167.6, cm, 05/07/20 8:56:00 EDT, Height, 101.2, kg, 09/17/19 10:13:00 EST,... Start Date: 05/07/20 Status: Ordered fluticasone 50 mcg/inh nasal spray 2 sprays, Nasal, Daily, in each nostril use opposite hnad for each nostril, # 16 Gm, 1 Refills, Maintenance, 10/23/20 9:37:00 EST, [facility], 2 sprays Nasal Daily,Instr:in each [...] 1 Refills, Maintenance, 07/13/20 16:01:00 EDT, [facility], 167.6, cm, 06/30/20 9:53:00 EDT, [...]
--- OUTSIDE RECORDS SUMMARY | 2024-02-23 12:21 | XMS_ITS | Continuity of Care Document ---
Author Organization [facility] Address [address] [place] [address]- Care Team Providers Care Coil Repair Technician Name Role Phone Edmond BRANDT, Wesley Kaur Primary Care Physician Encounter [facility] Date(s): 03/11/22 - 04/10/22 [facility] [address] [place] [address]- Allergies, Adverse Reactions, Alerts Substance Reaction Severity [...] 1Result Comment: [facility]: [id number] 2Result Comment: [facility]: [id number] 3Result Comment: [07/11/2017] [facility]; 95810-857-31 HIGH DOSE 4Admin Note: H1N1 5Admin Note: [...] Acute 04/13/22 14:07:00 EDT, 04/06/22 14:07:00 EDT, [facility] # [facility], 167.6, cm, 04/06/22 [...] 03/25/22 8:06:00 EDT, Route to Pharmacy Electronically, [facility] # [facility], 167.6, cm, 03/25/22 7:30:... Start Date: 03/25/22 Status: Ordered FLUoxetine 20 mg oral capsule 20 mg, 1, capsule, By Mouth, Daily, # 90 capsule, Refills 3, Tot. Refills 3, Maintenance, 02/22/21 14:32:00 EDT, Route to Pharmacy Electronically, [facility], Partial fill upon patient request if the prescription is for a schedule I... Start Date: 02/22/21 Status: Ordered fluticasone 50 mcg/inh nasal spray 2 sprays, Nasal, Daily, in each nostril use opposite hnad for each nostril, # 16 Gm, 1 Refills, Maintenance, 10/28/21 15:32:00 EST, [facility], 2 sprays Nasal Daily,Instr:in each [...]
--- OUTSIDE RECORDS SUMMARY | 2024-02-23 12:21 | XMS_ITS | Continuity of Care Document ---
Author Organization [facility] Sae [facility] Address [address] [place] [address]- Care Team Providers Care Relay Adjuster Name Role Phone Edmond BRANDT, Wesley Kaur Primary Care Physician [facility] Date(s): 02/23/21 - 03/25/21 [facility] Adult [address] [place] [address]- Allergies, Adverse Reactions, Alerts Substance Reaction Severity [...] Given 1Result Comment: [07/11/2017] [facility]; 27622-964-11 HIGH DOSE 2Admin Note: H1N1 3Admin Note: recieved elsewhere Medications amLODIPine 5 mg oral tablet 5 mg, 1, tablet, By Mouth, Daily, # 90 tablet, Refills 3, Tot. Refills 3, Maintenance, 06/29/20 14:01:00 EDT, Route to Pharmacy Electronically, [facility], 167.6, cm, 06/16/20 10:40:00 EDT, Height, 101.2, kg, 09/17/19 10:13:00 EST,... Start Date: 06/29/20 Status: Ordered atorvastatin 40 mg oral tablet 1 tablet = 40 mg, By Mouth, Daily, # 90 tablet, 1 Refills, Soft Stop, 03/04/21 12:12:00 EDT, [facility], 167.6, cm, 02/24/21 14:50:00 EDT, [...] 02/22/21 14:32:00 EDT, Route to Pharmacy Electronically, [facility], Partial fill upon patient request [...] 0 Refills, Maintenance, 01/11/21 10:54:00 EDT, [facility], 167.6, cm, 12/07/20 13:11:00 EST, Height, 101.2, kg, 09/17/1910:13:00 EST, Dry Weight Start Date: 01/11/21 Status: Ordered omeprazole 20 mg oral enteric coated capsule 1 capsule = 20 mg, By Mouth, Daily, # 90 capsule, 3 Refills, Maintenance, 08/26/20 13:24:00 EST, ECCapsule, [facility], 167.6, cm, 08/19/20 7:30:00 EST, [...]
--- OUTSIDE RECORDS SUMMARY | 2024-02-23 12:21 | XMS_ITS | Continuity of Care Document ---
Author Organization [facility] Sae lt Address [address] [place] [address]- Care Team Providers Care Twisting Operator Name Role Phone Kae STRAW HAT WASHER OPERATOR, Jovana Ghosh Primary Care Physician Encounter [facility] Date(s): 09/22/22 - 10/22/22 [facility] Adult [address] [place] [address]- Attending Physician: Holly BUNDY, Nathalie Allergies, Adverse Reactions, Alerts Substance Reaction Severity Status ciprofloxacin diarrhea Active codeine nausea Active baclofen SEVERE GI UPSET Active Macrobid GI upset Active Spiriva 1 Active 1urinary Immunizations Given and Recorded Vaccine Date Status Refusal Reason [id number] 12y+ bivalent booster vax 1 08/12/22 Given [...] 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 Given 1Result Comment: [facility]-[id number] left lower deltoid 2Result Comment: [facility]-[id number] left upper deltoid 3Result Comment: [facility]: [id number] 4Result Comment: [07/11/2017] [facility]; 41110-775-25 HIGH DOSE 5Result Comment: [facility]: [id number] 6Admin Note: H1N1 7Admin Note: recieved elsewhere Medications amLODIPine 5 mg oral tablet 1 tablet, By Mouth, Daily, # 90 tablet, 3 Refills, Maintenance, 07/27/22 11:13:00 EDT, [facility], 167.6, cm, 05/10/22 16:16:00 EDT, Height, 97.8, kg, 04/29/22 14:30:00 EDT, Dry Weight Start Date: 07/27/22 Status: Ordered atorvastatin 40 mg oral tablet 1 tablet, By Mouth, Daily, # 90 tablet, 1 Refills, Maintenance, 08/26/22 9:23:00 EST, [facility], 167.6, cm, 08/12/22 11:12:00 EST, Height, 97.8, kg, 04/29/22 14:30:00 EDT, Dry Weight Start Date: 08/26/22 Status: Ordered betamethasone topical dipropionate 0.05% cream 1 application, Topically, 2 times a day, # 15 Gm, 0 Refills, Maintenance, 09/30/22 15:16:00 EST, Cream, [facility] # [facility], Partial fill [...] 8:06:00 EDT, Route to Pharmacy Electronically, [facility] # [facility], 167.6, cm, 03/25/22 7:30:... Start Date: 03/25/22 Status: Ordered FLUoxetine 20 mg oral capsule 20 mg, 1, capsule, By Mouth, Daily, # 90 capsule, Refills 3, Tot. Refills 3, Maintenance, 08/18/22 8:26:00 EST, Route to Pharmacy Electronically, [facility] # [facility], Partial fill upon patient request if the prescription is for a schedule II opioid dr... Start Date: 08/18/22 Status: Ordered fluticasone 50 [...] 1 Refills, Maintenance, 10/10/22 11:08:00 EST, Tablet, [facility] # 50, Partial fill [...] Team Personnel Name: Leticia Alcantara RN Position: [facility] Onco RN Member Role: Primary Care Nurse Name: Juliet Hay NP Position: [facility] PCO Associate Professional Member Role: Primary Care Nurse Name: Jovana Pal NP Position: [facility] PCO Associate Professional Member Role: PCP Address: Address: [address] [place] [address]- Name: Michaela Castillo RN Position: S RN Member Role: Primary Care Nurse Name: Stacy Garcia RN Position: S RN Member Role: Primary Care Nurse Name: María Elena Dixon RN Position: S RN Member Role: Primary Care Nurse Care Team Related Persons Name: ISAURO HARKINS Address: [address] [address] Name: AGNIESZKA MAURER Address: [place] [address]
--- OUTSIDE RECORDS SUMMARY | 2024-02-23 12:21 | XMS_ITS | Continuity of Care Document ---
Author Organization [facility] Address [address] [facility] [address] [place] [address]- Care Team Providers Care Maintenance Shop Clerk Name Role Phone Wesley Pruitt MD Primary Care Physician [phone] Encounter 01/13/22 - 01/20/22 [facility] [address], [address] [place] [address]- Attending Physician: Wesley Pruitt MD Admitting Physician: [...] 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 Given 1Result Comment: [facility]: [id number] 2Result Comment: [facility]: [id number] 3Result Comment: [07/11/2017] [facility]; 49854-916-74 HIGH DOSE 4Admin Note: H1N1 5Admin Note: [...] 1 Refills, Maintenance, 10/28/21 15:32:00 EST, [facility], 2 sprays Nasal Daily,Instr:in each [...]
--- OUTSIDE RECORDS SUMMARY | 2024-02-23 12:21 | XMS_ITS | Continuity of Care Document ---
Author Organization [facility] Address [address] [place] [address]- Care Team Providers Care Billing Typist Name Role Phone Wesley Pruitt MD Primary Care Physician [place] [facility] Date(s): 06/26/20 - 07/29/[address] [facility] Adult [address] [place] [address]- [facility] Attending Physician: Nathalie Barrera NP Referring Physician: Wesley Pruitt MD Allergies, Adverse [...] (PPV23) (oldterm) 12/01/01 Given 1Result Comment: [07/11/2017] [facility]; 57596-239-26 HIGH DOSE 2Admin Note: H1N1 3Admin Note: recieved elsewhere Medications acetaminophen 325 mg oral tablet 650 mg, By Mouth, Every 6 hours, Refills 0, Maintenance, 09/19/19 11:55:00 EST Start Date: 09/19/19 Status: Ordered amLODIPine 5 mg oral tablet 5 mg, 1, tablet, By Mouth, Daily, # 90 tablet, Refills 3, Tot. Refills 3, Maintenance, 06/29/20 14:01:00 EDT, Route to Pharmacy Electronically, [facility], 167.6, cm, 06/16/20 10:40:00 EDT, Height, 101.2, kg, 09/17/19 10:13:00 EST,... Start Date: 06/29/20 Status: Ordered atorvastatin 40 mg oral tablet 1 tablet = 40 mg, By Mouth, Daily, # 90 tablet, 1 Refills, Soft Stop, 03/09/20 11:18:00 EDT, [facility], 167.6, cm, 09/19/19 7:55:00 EST, [...] 05/07/20 9:11:00 EDT, Route to Pharmacy Electronically, [facility], 167.6, cm, 05/07/20 8:56:00 EDT, Height, 101.2, kg, 09/17/19 10:13:00 EST,... Start Date: 05/07/20 Status: Ordered fluticasone 50 mcg/inh nasal spray 2 sprays, Nasal, Daily, in each nostril use opposite hnad for each nostril, # 16 Gm, 3 Refills, Maintenance, 01/10/20 8:38:00 EDT, [facility], 2 sprays Nasal Daily,Instr:in each [...] tablet, 1 Refills, Maintenance, 07/13/20 16:01:00 EDT, [facility], 167.6, cm, 06/30/20 9:53:00 EDT, Height, 101.2, kg, 09/17/19 10:13:00 EST, Dry Weight Start Date: 07/13/20 Status: Ordered omeprazole 20 mg oral enteric coated capsule 1 capsule = 20 mg, By Mouth, Daily, # 90 capsule, 3 Refills, Maintenance, 08/15/19 10:35:59 EST, ECCapsule, [facility] Start Date: 08/15/19 Stop Date: [...]
--- OUTSIDE RECORDS SUMMARY | 2024-02-23 12:21 | XMS_ITS | Continuity of Care Document ---
Author Organization [facility] Address [address] [place] [address]- Care Team Providers Care Admissions Coordinator Name Role Phone Edmond BRANDT, Wesley Kaur Primary Care Physician [facility] Date(s): 12/08/20 - 01/07/21 [facility] [address] [place] [address] Allergies, Adverse Reactions, Alerts Substance Reaction Severity [...] (oldterm) 12/01/01 Given 1Result Comment: [07/11/2017] [facility]; 11062-080-93 HIGH DOSE 2Admin Note: H1N1 3Admin Note: recieved elsewhere Medications acetaminophen 325 mg oral tablet 650 mg, By Mouth, Every 6 hours, Refills 0, Maintenance, 09/19/19 11:55:00 EST Start Date: 09/19/19 Status: Ordered amLODIPine 5 mg oral tablet 5 mg, 1, tablet, By Mouth, Daily, # 90 tablet, Refills 3, Tot. Refills 3, Maintenance, 06/29/20 14:01:00 EDT, Route to Pharmacy Electronically, [facility], 167.6, cm, 06/16/20 10:40:00 EDT, Height, 101.2, kg, 09/17/19 10:13:00 EST,... Start Date: 06/29/20 Status: Ordered atorvastatin 40 mg oral tablet 1 tablet = 40 mg, By Mouth, Daily, # 90 tablet, 1 Refills, Soft Stop, 09/07/20 14:24:00 EST, [facility], 167.6, cm, 08/19/20 7:30:00 EST, [...] 1 Refills, Maintenance, 10/23/20 9:37:00 EST, [facility], 2 sprays Nasal Daily,Instr:in [...] 1 Refills, Maintenance, 07/13/20 16:01:00 EDT, [facility], 167.6, cm, 06/30/20 9:53:00 EDT, [...]
--- OUTSIDE RECORDS SUMMARY | 2024-02-23 12:21 | XMS_ITS | Continuity of Care Document ---
Author Organization [facility] Address [address] [place] [address]- Care Team Providers Care Safety Director Name Role Phone Edmond BRANDT, Wesley Kaur Primary Care Physician En[place] [facility] [place](s): 06/30/20 - 07/07/20 [facility] Adult [address] [place] [address]- [place] Encounter Diagnosis Fall(Discharge Diagnosis) - 06/30/20 L4 vertebral fracture fall/trauma(Discharge Diagnosis) - 06/30/20 Scaphoid fracture, wrist, closed(Discharge Diagnosis) - 06/30/20 Hypertension(Discharge Diagnosis) - 06/30/20 Attending Physician: Kae UNDERGROUND UTILITY LOCATOR, Jovana Ghosh Allergies, Adverse Reactions, Alerts Substance [...] 1Result Comment: [07/11/2017] [facility]; 60892-427-91 HIGH DOSE 2Admin Note: H1N1 3Admin Note: recieved elsewhere Medications acetaminophen 325 mg oral tablet 650 mg, By Mouth, Every 6 hours, Refills 0, Maintenance, 09/19/19 11:55:00 EST Start Date: 09/19/19 Status: Ordered amLODIPine 5 mg oral tablet 5 mg, 1, tablet, By Mouth, Daily, # 90 tablet, Refills 3, Tot. Refills 3, Maintenance, 06/29/20 14:01:00 EDT, Route to Pharmacy Electronically, [facility], 167.6, cm, 06/16/20 10:40:00 EDT, Height, 101.2, kg, 09/17/19 10:13:00 EST,... Start Date: 06/29/20 Status: Ordered atorvastatin 40 mg oral tablet 1 tablet = 40 mg, By Mouth, Daily, # 90 tablet, 1 Refills, Soft Stop, 03/09/20 11:18:00 EDT, [facility], 167.6, cm, 09/19/19 7:55:00 EST, [...] 05/07/20 9:11:00 EDT, Route to Pharmacy Electronically, [facility], 167.6, cm, 05/07/20 8:56:00 EDT, Height, 101.2, kg, 09/17/19 10:13:00 EST,... Start Date: 05/07/20 Status: Ordered fluticasone 50 mcg/inh nasal spray 2 sprays, Nasal, Daily, in each nostril use opposite hnad for each nostril, # 16 Gm, 3 Refills, Maintenance, 01/10/20 8:38:00 EDT, [facility], 2 sprays Nasal Daily,Instr:in each [...] tablet, 1 Refills, Maintenance, 03/26/20 15:58:00 EDT, [facility], 167.6, cm, 03/10/20 15:20:00 EDT, [...] Effective Dates Health Status Clinical Service Informant Fall Discharge Diagnosis 06/30/20 Scaphoid fracture, wrist, closed Discharge Diagnosis 06/30/20 L4 vertebral fracture fall/trauma Discharge Diagnosis 06/30/20 Hypertension Discharge Diagnosis 06/30/20 Vital Signs Most recent to oldest [Reference Range]: 1 2 Height 167.6 cm (06/30/20 9:53 AM) 167.6 cm (06/30/20 9:21 AM) Pulse Rate [55-90 bpm] 81 bpm (06/30/20 9:53 AM) Blood Pressure [90-138/55-84 mm Hg] 152/ 80mm Hg *H* (06/30/20 9:53 AM) Social History Social History Type Response Smoking Status Never smoker entered on: 10/09/13 Sex
[2024-02-23 12:22] LABS: Alanine Aminotransferase 9 U/L (0-31); Albumin Level 4.2 g/dL (3.5-5.0); Alkaline Phosphatase 88 U/L (39-117); Anion Gap 14 (12-20); Aspartate Amino Transferase 12 U/L (5-31); Bilirubin Direct 0.3 mg/dL (0.0-0.5); Bilirubin Total 0.6 mg/dL (0.0-1.0); Blood Urea Nitrogen 14 mg/dL (9-16); Calcium 9.8 mg/dL (8.4-10.2); Carbon Dioxide 24 mmol/L (22-29); Chloride 102 mmol/L (96-108); Creatinine Clr Calc Pharmacy 56.7; Estimated Glomerular Filt Rate 48; Glucose Random 105 mg/dL (60-115); Lipase 19 U/L (8-78); Magnesium 1.9 mg/dL (1.6-2.6); Potassium 3.9 mmol/L (3.3-5.1); Sodium 136 mmol/L (135-145)
--- OUTSIDE RECORDS SUMMARY | 2024-02-23 12:22 | XMS_ITS | Continuity of Care Document ---
Author Organization [facility] Address [address] [place] [address]- Care Team Providers Care Front Office Director Name Role Phone Edmond BRANDT, Wesley Kaur Primary Care Physician [facility] Date(s): 12/09/20 - 01/08/21 [facility] Adult [address] [place] [address]- Allergies, Adverse Reactions, Alerts Substance Reaction Severity [...] (PPV23) (oldterm) 12/01/01 Given 1Result Comment: [07/11/2017] [facility]; 64227-492-40 HIGH DOSE 2Admin Note: H1N1 3Admin Note: recieved elsewhere Medications acetaminophen 325 mg oral tablet 650 mg, By Mouth, Every 6 hours, Refills 0, Maintenance, 09/19/19 11:55:00 EST Start Date: 09/19/19 Status: Ordered amLODIPine 5 mg oral tablet 5 mg, 1, tablet, By Mouth, Daily, # 90 tablet, Refills 3, Tot. Refills 3, Maintenance, 06/29/20 14:01:00 EDT, Route to Pharmacy Electronically, [facility], 167.6, cm, 06/16/20 10:40:00 EDT, Height, 101.2, kg, 09/17/19 10:13:00 EST,... Start Date: 06/29/20 Status: Ordered atorvastatin 40 mg oral tablet 1 tablet = 40 mg, By Mouth, Daily, # 90 tablet, 1 Refills, Soft Stop, 09/07/20 14:24:00 EST, [facility], 167.6, cm, 08/19/20 7:30:00 EST, [...] 12:00:00 EDT, 12/07/20 13:43:00 EST, Capsule, [facility], INCREASED DOSE, 167.6, cm, 12/07/20 13:11:00 EST, Height, 101.2, kg, 09/17/19 10:13:00 EST, Dry We... Start Date: 12/07/20 Stop Date: 03/02/21 Status: Ordered fluticasone 50 mcg/inh nasal spray 2 sprays, Nasal, Daily, in each nostril use opposite hnad for each nostril, # 16 Gm, 1 Refills, Maintenance, 10/23/20 9:37:00 EST, [facility], 2 sprays Nasal Daily,Instr:in each [...] 1 Refills, Maintenance, 07/13/20 16:01:00 EDT, [facility], 167.6, cm, 06/30/20 9:53:00 EDT, [...]
--- OUTSIDE RECORDS SUMMARY | 2024-02-23 12:22 | XMS_ITS | Continuity of Care Document ---
Author Organization [facility] gy and Diabetes Address [address] [place] [address]- Care Team Providers Care Folded Towel Machine Operator Name Role Phone Edmond BRANDT, Wesley Kaur Primary Care Physician [phone] [place] [facility] [place] Date(s): 08/13/20 - 09/12/20 [facility] Endocrinology and Diabetes [address] [place] [address]- Attending Physician: Rosamaria Kitchen Admitting Physician: Rosamaria Kitchen Referring Physician: AdmtrRosamaria Allergies, Adverse Reactions, Alerts Substance Reaction Severity [...] (PPV23) (oldterm) 12/01/01 Given 1Result Comment: [07/11/2017] [facility]; 08062-223-54 HIGH DOSE 2Admin Note: H1N1 3Admin Note: recieved elsewhere Medications acetaminophen 325 mg oral tablet 650 mg, By Mouth, Every 6 hours, Refills 0, Maintenance, 09/19/19 11:55:00 EST Start Date: 09/19/19 Status: Ordered amLODIPine 5 mg oral tablet 5 mg, 1, tablet, By Mouth, Daily, # 90 tablet, Refills 3, Tot. Refills 3, Maintenance, 06/29/20 14:01:00 EDT, Route to Pharmacy Electronically, [facility], 167.6, cm, 06/16/20 10:40:00 EDT, Height, 101.2, kg, 09/17/19 10:13:00 EST,... Start Date: 06/29/20 Status: Ordered atorvastatin 40 mg oral tablet 1 tablet = 40 mg, By Mouth, Daily, # 90 tablet, 1 Refills, Soft Stop, 09/07/20 14:24:00 EST, [facility], 167.6, cm, 08/19/20 7:30:00 EST, [...] 9:11:00 EDT, Route to Pharmacy Electronically, [facility], 167.6, cm, 05/07/20 8:56:00 EDT, Height, 101.2, kg, 09/17/19 10:13:00 EST,... Start Date: 05/07/20 Status: Ordered fluticasone 50 mcg/inh nasal spray 2 sprays, Nasal, Daily, in each nostril use opposite hnad for each nostril, # 16 Gm, 3 Refills, Maintenance, 01/10/20 8:38:00 EDT, [facility], 2 sprays Nasal Daily,Instr:in each [...] 1 Refills, Maintenance, 07/13/20 16:01:00 EDT, [facility], 167.6, cm, 06/30/20 9:53:00 EDT, Height, 101.2, kg, 09/17/19 10:13:00 EST, Dry Weight Start Date: 07/13/20 Status: Ordered omeprazole 20 mg oral enteric coated capsule 1 capsule = 20 mg, By Mouth, Daily, # 90 capsule, 3 Refills, Maintenance, 08/26/20 13:24:00 EST, ECCapsule, [facility], 167.6, cm, 08/19/20 7:30:00 EST, [...]
--- OUTSIDE RECORDS SUMMARY | 2024-02-23 12:22 | XMS_ITS | Continuity of Care Document ---
Author Organization [facility] Address [address] [place] [address]- Care Team Providers Care Stations Superintendent Name Role Phone Edmond BRANDT, Wesley Kaur Primary Care Physician [facility] Date(s): 08/15/21 - 09/14/21 [facility] [place] Adult [address] [place] [address]- Allergies, Adverse Reactions, Alerts Substance Reaction Severity [...] 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 Given 1Result Comment: [facility]: [id number] 2Result Comment: [facility]: 31733-929-00 3Result Comment: [07/11/2017] [facility]; 07161-633-21 HIGH DOSE 4Admin Note: H1N1 5Admin Note: [...] 14:32:00 EDT, Route to Pharmacy Electronically, [facility], Partial fill upon patient [...] 1 Refills, Maintenance, 07/26/21 14:47:00 EDT, [facility], 167.6, cm, 07/26/21 14:38:00 EDT, [...]
--- OUTSIDE RECORDS SUMMARY | 2024-02-23 12:22 | XMS_ITS | Continuity of Care Document ---
Author Organization [facility] Address [address] [place] [address]- Care Team Providers Care Golf Club Maker Name Role Phone Edmond BRANDT, Wesley Kaur Primary Care Physician [phone] Encounter [facility] [place] Date(s): 09/20/21 - 10/20/21 [facility] Adult [address] [place] [address]- Allergies, Adverse Reactions, Alerts Substance Reaction Severity [...] (PPV23) (oldterm) 12/01/01 Given 1Result Comment: [facility]: [id number] 2Result Comment: [facility]: [id number] 3Result Comment: [07/11/2017] [facility]; 78034-905-48 HIGH DOSE 4Admin Note: H1N1 5Admin Note: recieved elsewhere Medications amLODIPine 5 mg oral tablet 1 tablet = 5 mg, By Mouth, Daily, # 90 tablet, 1 Refills, Maintenance, 06/02/21 17:26:00 EDT, [email or web address], 167.6, cm, 02/24/21 14:50:00 EDT, Height, 107.9, kg, 02/24/21 13:39:00 EDT, Dry Weight Start Date: 06/02/21 Status: Ordered atorvastatin 40 mg oral tablet 1 tablet, By Mouth, Daily, # 90 tablet, 1 Refills, [email or web address], 167.6, cm, 08/19/21 11:48:00 EST, [...] 02/22/21 14:32:00 EDT, Route to Pharmacy Electronically, [facility], Partial fill upon patient request [...] tablet, 0 Refills, Maintenance, 09/20/21 11:54:00 EST, [facility], 167.6, cm, 08/19/21 11:48:00 [...]
--- OUTSIDE RECORDS SUMMARY | 2024-02-23 12:22 | XMS_ITS | Continuity of Care Document ---
Author Organization [facility] Diabetes Address [address] [place] [address]- Care Team Providers Care Box Sealing Machine Operator Name Role Phone Edmond BRANDT, Wesley Kaur Primary Care Physician [place] [facility] [place]/18[place]21 - 02/17/21 [facility] Diabetes [address] [place] [address]- Allergies, Adverse Reactions, Alerts Substance Reaction Severity [...] (oldterm) 12/01/01 Given 1Result Comment: [07/11/2017] [facility]; 88887-206-71 HIGH DOSE 2Admin Note: H1N1 3Admin Note: [...] Refills, Soft Stop, 09/07/20 14:24:00 EST, [facility], 167.6, cm, 08/19/20 [...] 0 Refills, Maintenance, 01/11/21 10:54:00 EDT, [facility], 167.6, cm, 12/07/20 13:11:00 EST, Height, 101.2, kg, 09/17/1910:13:00 EST, Dry Weight Start Date: 01/11/21 Status: Ordered omeprazole 20 mg oral enteric coated capsule 1 capsule = 20 mg, By Mouth, Daily, # 90 capsule, 3 Refills, Maintenance, 08/26/20 13:24:00 EST, ECCapsule, [facility], 167.6, cm, 08/19/20 7:30:00 EST, [...]
--- OUTSIDE RECORDS SUMMARY | 2024-02-23 12:22 | XMS_ITS | Continuity of Care Document ---
Author Organization [facility] Diabetes Address [address] [place] [address]- Care Team Providers Care Burglar Alarm Mechanic Name Role Phone Edmond BRANDT, Wesley Kaur Primary Care Physician [phone] Encounter [facility] Date(s): 02/18/21 - 03/20/21 [facility] Diabetes [address] [place] [address]- Allergies, Adverse Reactions, Alerts Substance Reaction Severity [...] (PPV23) (oldterm) 12/01/01 Given 1Result Comment: [07/11/2017] [facility]; 75124-756-84 HIGH DOSE 2Admin Note: H1N1 3Admin Note: [...] Refills, Soft Stop, 03/04/21 12:12:00 EDT, [facility], 167.6, cm, 02/24/21 14:50:00 EDT, [...] 14:32:00 EDT, Route to Pharmacy Electronically, [facility], Partial fill upon patient request if the prescription is for a schedule I... Start Date: 02/22/21 Status: Ordered fluticasone 50 mcg/inh nasal spray 2 sprays, Nasal, Daily, in each nostril use opposite hnad for each nostril, # 16 Gm, 1 Refills, Maintenance, 01/09/21 10:28:00 EDT, [facility], 2 sprays Nasal Daily,Instr:in each [...] tablet, 0 Refills, Maintenance, 01/11/21 10:54:00 EDT, [facility], 167.6, cm, 12/07/20 13:11:00 EST, Height, 101.2, kg, 09/17/1910:13:00 EST, Dry Weight Start Date: 01/11/21 Status: Ordered omeprazole 20 mg oral enteric coated capsule 1 capsule = 20 mg, By Mouth, Daily, # 90 capsule, 3 Refills, Maintenance, 08/26/20 13:24:00 EST, ECCapsule, [facility], 167.6, cm, 08/19/20 7:30:00 EST, [...]
--- OUTSIDE RECORDS SUMMARY | 2024-02-23 12:22 | XMS_ITS | Continuity of Care Document ---
Author Organization [facility] Address [address] [place] [address]- Care Team Providers Care Hood Fitter Name Role Phone Edmond BRANDT, Wesley Kaur Primary Care Physician [place] [facility] [place] 11/11/20 - 12/11/[address] [address] Attending Physician: Rosamaria Kitchen Admitting [...] (PPV23) (oldterm) 12/01/01 Given 1Result Comment: [07/11/2017] [facility]; 52763-454-84 HIGH DOSE 2Admin Note: H1N1 3Admin Note: recieved elsewhere Medications acetaminophen 325 mg oral tablet 650 mg, By Mouth, Every 6 hours, Refills 0, Maintenance, 09/19/19 11:55:00 EST Start Date: 09/19/19 Status: Ordered amLODIPine 5 mg oral tablet 5 mg, 1, tablet, By Mouth, Daily, # 90 tablet, Refills 3, Tot. Refills 3, Maintenance, 06/29/20 14:01:00 EDT, Route to Pharmacy Electronically, [facility], 167.6, cm, 06/16/20 10:40:00 EDT, Height, 101.2, kg, 09/17/19 10:13:00 EST,... Start Date: 06/29/20 Status: Ordered atorvastatin 40 mg oral tablet 1 tablet = 40 mg, By Mouth, Daily, # 90 tablet, 1 Refills, Soft Stop, 09/07/20 14:24:00 EST, [facility], 167.6, cm, 08/19/20 7:30:00 EST, [...] Acute 01/06/21 14:01:00 EDT, 12/07/20 14:01:00 EST, [facility] # [facility], early fill, 167.6, cm, [...]
--- OUTSIDE RECORDS SUMMARY | 2024-02-23 12:22 | XMS_ITS | Continuity of Care Document ---
Author Organization [facility] Address [address] [place] [address]- Care Team Providers Care Tennis Instructor Name Role Phone Edmond BRANDT, Wesley Kaur Primary Care Physician [phone] [facility]counter [facility] Date(s): 06/26/20 - 07/26/20 [facility] [place], operated [facility] Adult [address] [place] [address]- [place] Allergies, Adverse Reactions, Alerts Substance Reaction [...] (PPV23) (oldterm) 12/01/01 Given 1Result Comment: [07/11/2017] [facility]; 10387-450-99 HIGH DOSE 2Admin Note: H1N1 3Admin Note: [...] Refills, Soft Stop, 03/09/20 11:18:00 EDT, [facility], 167.6, cm, 09/19/19 7:55:00 EST, [...] 05/07/20 9:11:00 EDT, Route to Pharmacy Electronically, [facility], 167.6, cm, 05/07/20 8:56:00 EDT, Height, 101.2, kg, 09/17/19 10:13:00 EST,... Start Date: 05/07/20 Status: Ordered fluticasone 50 mcg/inh nasal spray 2 sprays, Nasal, Daily, in each nostril use opposite hnad for each nostril, # 16 Gm, 3 Refills, Maintenance, 01/10/20 8:38:00 EDT, [facility], 2 sprays Nasal Daily,Instr:in each [...] 1 Refills, Maintenance, 07/13/20 16:01:00 EDT, [facility], 167.6, cm, 06/30/20 9:53:00 EDT, Height, 101.2, kg, 09/17/19 10:13:00 EST, Dry Weight Start Date: 07/13/20 Status: Ordered omeprazole 20 mg oral enteric coated capsule 1 capsule = 20 mg, By Mouth, Daily, # 90 capsule, 3 Refills, Maintenance, 08/15/19 10:35:59 EST, ECCapsule, [facility] Start Date: 08/15/19 Stop Date: [...]
--- OUTSIDE RECORDS SUMMARY | 2024-02-23 12:22 | XMS_ITS | Continuity of Care Document ---
Author Organization [facility] Address [address] [place] [address]- Care Team Providers Care Service Desk Lead Name Role Phone Wesley Pruitt MD Primary Care Physician Encounter [facility] [place] Date(s): 11/30/20 - 12/07/20 [facility] Adult [address] [place] [address]- Encounter Diagnosis Diarrhea(Discharge Diagnosis) - 11/30/20 Attending Physician: Wesley Pruitt MD Allergies, Adverse [...] (PPV23) (oldterm) 12/01/01 Given 1Result Comment: [07/11/2017] [facility]; 65125-294-17 HIGH DOSE 2Admin Note: H1N1 3Admin Note: recieved elsewhere Medications acetaminophen 325 mg oral tablet 650 mg, By Mouth, Every 6 hours, Refills 0, Maintenance, 09/19/19 11:55:00 EST Start Date: 09/19/19 Status: Ordered amLODIPine 5 mg oral tablet 5 mg, 1, tablet, By Mouth, Daily, # 90 tablet, Refills 3, Tot. Refills 3, Maintenance, 06/29/20 14:01:00 EDT, Route to Pharmacy Electronically, [facility], 167.6, cm, 06/16/20 10:40:00 EDT, Height, 101.2, kg, 09/17/19 10:13:00 EST,... Start Date: 06/29/20 Status: Ordered atorvastatin 40 mg oral tablet 1 tablet = 40 mg, By Mouth, Daily, # 90 tablet, 1 Refills, Soft Stop, 09/07/20 14:24:00 EST, [facility], 167.6, cm, 08/19/20 7:30:00 EST, [...] 1 Refills, Maintenance, 10/23/20 9:37:00 EST, [facility], 2 sprays Nasal Daily,Instr:in each [...] Acute 01/06/21 14:01:00 EDT, 12/07/20 14:01:00 EST, [facility], early fill, 167.6, cm, [...] Diagnosis Diagnosis Type Effective Dates Health Status Clini blade Service Informant Diarrhea Discharge Diagnosis 11/30/20 Vital Signs Most recent to oldest [Reference Range]: 1 Height 167.6 cm (11/30/20 1:59 PM) Social History Social History Type Response Smoking Status Never smoker entered on: 10/09/13 Sex
--- OUTSIDE RECORDS SUMMARY | 2024-02-23 12:22 | XMS_ITS | Continuity of Care Document ---
Author Organization [facility] S[facility] Address [address] [place] [address]- Care Team Providers Care Turn Machine Operator Name Role Phone Kae PLANT MACHINIST, Jovana Ghosh Primary Care Physician [facility] Date(s): 08/29/23 - 09/28/23 [facility] Adult [address] [place] [address]- Allergies, Adverse Reactions, Alerts Substance Reaction Severity [...] pneumococcal 20-valent conjugate vaccine 5 02/13/23 Given [id number] 12y+ bivalent booster vax 6 08/12/22 Given [...] 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 Given 1Result Comment: [id number] 2Result Comment: [facility]-[id number] left upper deltoid 3Result Comment: [facility]: [id number] 4Result Comment: [07/11/2017] [facility]; 64817-881-75 HIGH DOSE 5Result Comment: [id number] 6Result Comment: [facility]-[id number] left lower deltoid 7Result Comment: [facility]: [id number] 8Admin Note: H1N1 9Admin Note: recieved elsewhere [...] 05/17/23 13:17:00 EDT, Route to Pharmacy Electronically, [facility], 167.6, cm, 03/23/23 10:29:00 EDT, Height, 97.8, kg, 04/29/22 14:30:00 EDT, Dry Weight Start Date: 05/17/23 Status: Ordered fluticasone 50 mcg/inh nasal spray 2 sprays, Nasal, Daily, in each nostril use opposite hnad for each nostril, # 16 Gm, 1 Refills, Maintenance, 10/28/21 15:32:00 EST, [facility], 2 sprays Nasal Daily,Instr:in each [...] capsule, 3 Refills, 05/22/23 10:49:00 EDT, [facility], 167.6, cm, 03/23/23 10:29:00 EDT, Height, 97.8, kg, 04/29/22 14:30:00 EDT, Dry Weight Start Date: 05/22/23 Status: Ordered QUEtiapine 25 mg oral tablet 25 mg, 1, tablet, By Mouth, Daily at bedtime, for 90 days, replaces lorazepam, # 90 tablet, Refills1, Tot. Refills 1, Acute 01/06/24 21:09:00 EDT, 07/10/23 21:09:00 EDT, Route to Pharmacy Electronically, [facility], 167.6, cm, 03/03... Start Date: [...] 16:39:00 EST, Route to Pharmacy Electronically, [facility], 167.6, cm, 07/18/23 9:30:00 EDT, [...] asthma. 3had EGD 4EGD pending 5seeing DR estrdaa.workup 6advised pre diabetic increased risk diabetes 7PHQ9;one 8PHQ(;one-=remission 9PHQ9 1=remission 10zung 38 today;normal in counselling 11rx Social History Social History Type Response Smoking Status Never smoker entered on: 10/09/13 Sex Patient Care team information Care Team Personnel Name: Juliet Hay NP Position: [facility] Associate Professional Member Role: Primary Care Nurse Name: Jovana Pal NP Position: [facility] Associate Professional Member Role: PCP Address: Address: [address] [place] [address] Name: Michaela Castillo RN Position: [facility] RN Member Role: Primary Care Nurse Name: Leticia Barth RN Position: [facility] Onco RN Member Role: Primary Care Nurse Name: Stacy Garcia RN Position: [facility] SN RN Member Role: Primary Care Nurse Name: María Elena Dixon RN Position: [facility] RN Member Role: Primary Care Nurse Care Team Related Persons Name: HARKINS ISAURO Address: [address] [address] Name: AGNIESZKA MAURER Address: [address] [address]
--- OUTSIDE RECORDS SUMMARY | 2024-02-23 12:22 | XMS_ITS | Continuity of Care Document ---
Author Organization [facility] Endocrinolo gy and Diabetes Address [address] [place] [address]- Care Team Providers Care Hand Baseball Sewer Name Role Phone Kae RETAIL ADVERTISING ACCOUNT EXECUTIVE, Jovana Ghosh Primary Care Physician [phone] [facility]counter [facility] Date(s): 12/20/22 - 01/19/23 [facility] Endocr[facility]ology and Diabetes [address] [place] [address]- Allergies, Adverse Reactions, Alerts Substance Reaction Severity Status ciprofloxacin diarrhea Active codeine nausea Active baclofen SEVERE GI UPSET Active Macrobid GI upset Active Spiriva 1 Active 1urinary Immunizations Given and Recorded Vaccine Date Status Refusal Reason [id number] 12y+ bivalent booster vax 1 08/12/22 Given [...] 01/21/21 Recorded SARS-CoV-2 (COVID-19) mRNA BNT-162b2 vac 3/31/21 Recorded zoster vaccine, inactivated 09/23/20 Recorded zoster [...] 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 Given 1Result Comment: [facility]-[id number] left lower deltoid 2Result Comment: [facility]-[id number] left upper deltoid 3Result Comment: [facility]: [id number] 4Result Comment: [07/11/2017] [facility]; 54677-527-00 HIGH DOSE 5Result Comment: [facility]: [id number] 6Admin Note: H1N1 7Admin Note: recieved elsewhere Medications amLODIPine 5 mg oral tablet 1 tablet, By Mouth, Daily, # 90 tablet, 3 Refills, Maintenance, 07/27/22 11:13:00 EDT, [facility], 167.6, cm, 05/10/22 16:16:00 EDT, Height, 97.8, kg, 04/29/22 14:30:00 EDT, Dry Weight Start Date: 07/27/22 Status: Ordered atorvastatin 40 mg oral tablet 1 tablet, By Mouth, Daily, # 90 tablet, 1 Refills, Maintenance, 08/26/22 9:23:00 EST, [facility], 167.6, cm, 08/12/22 11:12:00 EST, [...] Personnel Name: Satnam BUNDY, Juliet Snyder Position: [facility] Associate Professional Member Role: Primary Care Nurse Name: Jovana Pal NP Position: [facility] Associate Professional Member Role: PCP Address: Address: [address] [place] [address]- Name: Michaela Castillo RN Position: [facility] RN Member Role: Primary Care Nurse Name: Leticia Barth RN Position: [facility] Onco RN Member Role: Primary Care Nurse Name: María Elena Dixon RN Position: S RN Member Role: Primary Care Nurse Care Team Related Persons Name: ISAURO HARKINS Address: [place] [address] Name: AGNIESZKA MAURER Address: [place] [address]
--- OUTSIDE RECORDS SUMMARY | 2024-02-23 12:22 | XMS_ITS | Continuity of Care Document ---
Author Organization [facility] S[facility] Address [address] [place] [address]- Care Team Providers Care Sports Writer Name Role Phone Edmond BRANDT, Wesley Kaur Primary Care Physician [place] [facility] [place] [facility] [place] 05/06/22 [facility] Adult [address] [place] [address]- Attending Physician: Imtiaz, Rosamaria Referring Physician: Elena [...] 12/01/01 Given 1Result Comment: [facility]: [id number] 2Result Comment: [facility]: [id number] 3Result Comment: [07/11/2017] [facility]; 27530-601-45 HIGH DOSE 4Admin Note: H1N1 5Admin Note: [...] 03/25/22 8:06:00 EDT, Route to Pharmacy Electronically, [facility], 167.6, cm, 03/25/22 7:30:... Start Date: 03/25/22 Status: Ordered FLUoxetine 20 mg oral capsule 20 mg, 1, capsule, By Mouth, Daily, # 90 capsule, Refills 3, Tot. Refills 3, Maintenance, 02/22/21 14:32:00 EDT, Route to Pharmacy Electronically, [facility], Partial fill upon patient request if the prescription is for a schedule I... Start Date: 02/22/21 Status: Ordered fluticasone 50 mcg/inh nasal spray 2 sprays, Nasal, Daily, in each nostril use opposite hnad for each nostril, # 16 Gm, 1 Refills, Maintenance, 10/28/21 15:32:00 EST, [facility], 2 sprays Nasal Daily,Instr:in each [...] 0 Refills, Maintenance, 05/06/22 11:31:00 EDT, Tablet, [facility], [...] Bone density scan 5 01/30/08 Compl eted [address] [place] [address] emergency room August 21, 2021 white count [...] EKG normal sinus rhythm rate 75 normal NE QRS QT. 2tear medial meniscus,bakers cyst 3nad 4h hernia,gastritis 5minor ostepenia Social History Social History Type Response Smoking Status Never smoker entered on: 10/09/13 Sex
--- OUTSIDE RECORDS SUMMARY | 2024-02-23 12:22 | XMS_ITS | Continuity of Care Document ---
Author Organization [facility] S[facility] Address [address] [place] [address]- Care Team Providers Care Mill Stenciler Name Role Phone Kae MANAGER PROGRAMMING, Jovana Ghosh Primary Care Physician [facility] Date(s): 07/29/22 - 08/28/22 [facility] Adult [address] [place] [address]- Allergies, Adverse Reactions, Alerts Substance Reaction Severity Status ciprofloxacin diarrhea Active codeine nausea Active baclofen SEVERE GI UPSET Active Macrobid GI upset Active Spiriva 1 Active 1urinary Immunizations Given and Recorded Vaccine Date Status Refusal Reason [id number] 12y+ bivalent booster vax 1 08/12/22 Given [...] (PPV23) (oldterm) 12/01/01 Given 1Result Comment: [facility]-[id number] left lower deltoid 2Result Comment: [facility]-[id number] left upper deltoid 3Result Comment: [facility]: [id number] 4Result Comment: [07/11/2017] [facility]; 91373-218-39 HIGH DOSE 5Result Comment: [facility]: [id number] 6Admin Note: H1N1 7Admin Note: recieved elsewhere Medications amLODIPine 5 mg oral tablet 1 tablet, By Mouth, Daily, # 90 tablet, 3 Refills, Maintenance, 07/27/22 11:13:00 EDT, [facility], 167.6, cm, 05/10/22 16:16:00 EDT, Height, 97.8, kg, 04/29/22 14:30:00 EDT, Dry Weight Start Date: 07/27/22 Status: Ordered atorvastatin 40 mg oral tablet 1 tablet, By Mouth, Daily, # 90 tablet, 1 Refills, Maintenance, 08/26/22 9:23:00 EST, [facility], 167.6, cm, 08/12/22 11:12:00 EST, [...] 08/18/22 8:26:00 EST, Route to Pharmacy Electronically, [facility] # [facility], Partial fill upon patient [...] 1 Refills, Maintenance, 08/12/22 11:44:00 EST, Tablet, [facility] # [facility], Partial fill upon patient [...] Team Personnel Name: Leticia Alcantara RN Position: [facility] Onco RN Member Role: Primary Care Nurse Name: Juliet Hay NP Position: [facility] Associate Professional Member Role: Primary Care Nurse Name: Jovana Pal NP Position: [facility] Associate Professional Member Role: PCP Address: Address: [address] [place] [address]- Name: Michaela Castillo RN Position: S RN Member Role: Primary Care Nurse Name: Stacy Garcia RN Position: S RN Member Role: Primary Care Nurse Name: María Elena Dixon RN Position: S RN Member Role: Primary Care Nurse Care Team Related Persons Name: ISAURO HARKINS Address: [address] [address] Name: AGNIESZKA MAURER Address: [address] [address]
--- OUTSIDE RECORDS SUMMARY | 2024-02-23 12:22 | XMS_ITS | Continuity of Care Document ---
Author Organization [facility] Sae lt Address [address] [place] [address]- Care Team Providers Care Automotive Service Assistant Name Role Phone Edmond BRANDT, Wesley Kaur Primary Care Physician [place] [facility] [place] 11/23/21 - 12/23/21 [facility] Adult [address] [place] [address]- Allergies, Adverse Reactions, Alerts Substance Reaction Severity [...] (PPV23) (oldterm) 12/01/01 Given 1Result Comment: [facility]: 6481-8978-42 2Result Comment: [facility]: 12835-334-40 3Result Comment: [07/11/2017] [facility]; 00571-922-80 HIGH DOSE 4Admin Note: H1N1 5Admin Note: [...] 14:32:00 EDT, Route to Pharmacy Electronically, [facility], Partial fill upon patient request if the prescription is for a schedule I... Start Date: 02/22/21 Status: Ordered fluticasone 50 mcg/inh nasal spray 2 sprays, Nasal, Daily, in each nostril use opposite hnad for each nostril, # 16 Gm, 1 Refills, Maintenance, 10/28/21 15:32:00 EST, [facility], 2 sprays Nasal Daily,Instr:in each [...] tablet, 0 Refills, Maintenance, 09/20/21 11:54:00 EST, [facility] # [facility], 167.6, cm, 08/19/21 11:48:00 EST, Height, 107.9, kg, 02/24/21 13:39:00 EDT, Dry Weight Start Date: 09/20/21 Status: Ordered omeprazole 20 mg oral enteric coated capsule 1 capsule, By Mouth, Daily, # 90 capsule, 0 Refills, [facility], 167.6, cm, 08/19/21 11:48:00 EST, [...]
--- OUTSIDE RECORDS SUMMARY | 2024-02-23 12:22 | XMS_ITS | Continuity of Care Document ---
Author Organization [facility] Sae lt Address [address] [place] [address]- Care Team Providers Care Banding Machine Operator Name Role Phone Edmond BRANDT, Wesley Kaur Primary Care Physician Encounter [facility] [place] Date(s): 05/01/22 - 05/31/22 [facility] Adult [address] [place] [address]- Allergies, Adverse Reactions, Alerts Substance Reaction Severity [...] 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 Given 1Result Comment: [facility]: [id number] 2Result Comment: [facility]: 20441-673-32 3Result Comment: [07/11/2017] [facility]; 40468-778-60 HIGH DOSE 4Admin Note: H1N1 5Admin Note: [...] 03/25/22 8:06:00 EDT, Route to Pharmacy Electronically, [facility] # [facility], 167.6, cm, 03/25/22 7:30:... [...] Status Never smoker entered on: 10/09/13 Sex Care Team Personnel Name: Edmond BRANDT, Wesley Kaur Address: [address] [place] [address]
--- OUTSIDE RECORDS SUMMARY | 2024-02-23 12:22 | XMS_ITS | Continuity of Care Document ---
Author Organization [facility] [place] Sae lt Address [address] [place] [address]- Care Team Providers Care Proj Mgr Name Role Phone Edmond BRANDT, Wesley Kaur Primary Care Physician Encounter [facility] Date(s): 08/18/21 - 09/17/21 [facility] [place] Adult [address] [place] [address]- Allergies, Adverse Reactions, Alerts Substance Reaction Severity [...] (PPV23) (oldterm) 12/01/01 Given 1Result Comment: [facility]: [id number] 2Result Comment: [facility]: 87608-129-99 3Result Comment: [07/11/2017] [facility]; 58516-991-40 HIGH DOSE 4Admin Note: H1N1 5Admin Note: [...] 14:32:00 EDT, Route to Pharmacy Electronically, [facility], Partial fill upon patient request [...] 1 Refills, Maintenance, 07/26/21 14:47:00 EDT, [facility], 167.6, cm, 07/26/21 14:38:00 EDT, [...]
--- OUTSIDE RECORDS SUMMARY | 2024-02-23 12:22 | XMS_ITS | Continuity of Care Document ---
Author Organization [facility] Sae lt Address [address] [place] [address]- Care Team Providers Care Soaping Machine Back Tender Name Role Phone Edmond BRANDT, Wesley Kaur Primary Care Physician Encounter [facility] Date(s): 12/01/20 - 12/31/20 [facility] Adult [address] [place] [address]- Allergies, Adverse Reactions, Alerts Substance Reaction Severity [...] (PPV23) (oldterm) 12/01/01 Given 1Result Comment: [07/11/2017] [facility]; 06398-101-26 HIGH DOSE 2Admin Note: H1N1 3Admin Note: recieved elsewhere Medications acetaminophen 325 mg oral tablet 650 mg, By Mouth, Every 6 hours, Refills 0, Maintenance, 09/19/19 11:55:00 EST Start Date: 09/19/19 Status: Ordered amLODIPine 5 mg oral tablet 5 mg, 1, tablet, By Mouth, Daily, # 90 tablet, Refills 3, Tot. Refills 3, Maintenance, 06/29/20 14:01:00 EDT, Route to Pharmacy Electronically, [facility], 167.6, cm, 06/16/20 10:40:00 EDT, Height, 101.2, kg, 09/17/19 10:13:00 EST,... Start Date: 06/29/20 Status: Ordered atorvastatin 40 mg oral tablet 1 tablet = 40 mg, By Mouth, Daily, # 90 tablet, 1 Refills, Soft Stop, 09/07/20 14:24:00 EST, [facility], 167.6, cm, 08/19/20 7:30:00 EST, [...] 1 Refills, Maintenance, 10/23/20 9:37:00 EST, [facility], 2 sprays Nasal Daily,Instr:in each [...] Acute 01/06/21 14:01:00 EDT, 12/07/20 14:01:00 EST, [facility] # [facility], early fill, 167.6, cm, 12/07/20 13:11:00 EST, Height, 101.2, kg, 09/17/19 10:13:00 EST, Dry We... Start Date: 12/07/20 Stop Date: 01/06/21 Status: Ordered LORazepam 0.5 mg oral tablet 1 tablet = 0.5 mg, By Mouth, Daily at bedtime, # 90 tablet, 1 Refills, Maintenance, 07/13/20 16:01:00 EDT, [facility], 167.6, cm, 06/30/20 9:53:00 EDT, [...]
--- OUTSIDE RECORDS SUMMARY | 2024-02-23 12:22 | XMS_ITS | Continuity of Care Document ---
Author Organization [facility] Sae lt Address [address] [place] [address]- Care Team Providers Care Operating Room Scheduler Name Role Phone Edmond BRANDT, Wesley Kaur Primary Care Physician En[place] [facility] [place] Date(s): 12/13/21 - 01/12/22 [facility] Adult [address] [place] [address]- Allergies, Adverse Reactions, Alerts Substance Reaction Severity [...] 12/01/01 Given 1Result Comment: [facility]: [id number] 2Result Comment: [facility]: 37678-628-81 3Result Comment: [07/11/2017] [facility]; 01095-337-65 HIGH DOSE 4Admin Note: H1N1 5Admin Note: [...] 14:32:00 EDT, Route to Pharmacy Electronically, [email or web address], Partial fill upon patient request if the prescription is for a schedule I... Start Date: 02/22/21 Status: Ordered fluticasone 50 mcg/inh nasal spray 2 sprays, Nasal, Daily, in each nostril use opposite hnad for each nostril, # 16 Gm, 1 Refills, Maintenance, 10/28/21 15:32:00 EST, [email or web address], 2 sprays Nasal Daily,Instr:in each [...] tablet, 0 Refills, Maintenance, 09/20/21 11:54:00 EST, [facility] # [facility], 167.6, cm, 08/19/21 11:48:00 EST, Height, 107.9, kg, 02/24/21 13:39:00 EDT, Dry Weight Start Date: 09/20/21 Status: Ordered omeprazole 20 mg oral enteric coated capsule 1 capsule, By Mouth, Daily, # 90 capsule, 0 Refills, [email or web address], 167.6, cm, 08/19/21 11:48:00 EST, [...]
--- OUTSIDE RECORDS SUMMARY | 2024-02-23 12:22 | XMS_ITS | Continuity of Care Document ---
Author Organization [facility] Sae lt Address [address] [place] [address]- Care Team Providers Care Senior Animator Name Role Phone Kae CRIMINAL ATTORNEY, Jovana Ghosh Primary Care Physician Encounter [facility] Date(s): 12/30/22 - 01/29/23 [facility] Adult [address] [place] [address]- Allergies, Adverse Reactions, Alerts Substance Reaction Severity Status ciprofloxacin diarrhea Active codeine nausea Active baclofen SEVERE GI UPSET Active Spiriva 1 Active Macrobid GI upset Active 1urinary Immunizations Given and Recorded Vaccine Date Status Refusal Reason [id number] 12y+ bivalent booster vax 1 08/12/22 Given [...] Given 1Result Comment: [facility]-[id number] left lower deltoid 2Result Comment: [facility]-[id number] left upper deltoid 3Result Comment: [facility]: 42982-017-06 4Result Comment: [07/11/2017] [facility]; 22268-339-81 HIGH DOSE 5Result Comment: [facility]: 7964-6893-22 6Admin Note: H1N1 7Admin Note: recieved elsewhere Medications amLODIPine 5 mg oral tablet 1 tablet, By Mouth, Daily, # 90 tablet, 3 Refills, Maintenance, 07/27/22 11:13:00 EDT, [facility], 167.6, cm, 05/10/22 16:16:00 EDT, Height, 97.8, kg, 04/29/22 14:30:00 EDT, Dry Weight Start Date: 07/27/22 Status: Ordered atorvastatin 40 mg oral tablet 1 tablet, By Mouth, Daily, # 90 tablet, 1 Refills, Maintenance, 08/26/22 9:23:00 EST, [facility], 167.6, cm, 08/12/22 11:12:00 EST, [...] Associate Professional Member Role: PCP Address: Address: [address] [place] [address]- Name: Michaela Castillo RN Position: [facility] RN Member Role: Primary Care Nurse Name: Leticia Barth RN Position: [facility] Onco RN Member Role: Primary Care Nurse Name: María Elena Dixon RN Position: S RN Member Role: Primary Care Nurse Care Team Related Persons Name: ISAURO HARKINS Address: [place] [address] Name: AGNIESZKA MAURER Address: [place] [address]
--- OUTSIDE RECORDS SUMMARY | 2024-02-23 12:23 | XMS_ITS | Continuity of Care Document ---
Author Organization [facility] Sae lt Address [address] [place] [address]- Care Team Providers Care Hebrew Teacher Name Role Phone Edmond BRANDT, Wesley Kaur Primary Care Physician Encounter [facility] [place] Date(s): 11/24/21 - 12/24/21 [facility] Adult [address] [place] [address]- Allergies, Adverse Reactions, Alerts Substance Reaction Severity [...] 12/01/01 Given 1Result Comment: [facility]: [id number] 2Result Comment: [facility]: 17063-456-56 3Result Comment: [07/11/2017] [facility]; 49128-865-27 HIGH DOSE 4Admin Note: H1N1 5Admin Note: [...] 14:32:00 EDT, Route to Pharmacy Electronically, [facility], Partial fill upon patient request if the prescription is for a schedule I... Start Date: 02/22/21 Status: Ordered fluticasone 50 mcg/inh nasal spray 2 sprays, Nasal, Daily, in each nostril use opposite hnad for each nostril, # 16 Gm, 1 Refills, Maintenance, 10/28/21 15:32:00 EST, [facility], 2 sprays Nasal Daily,Instr:in each [...] tablet, 0 Refills, Maintenance, 09/20/21 11:54:00 EST, [facility] # [facility], 167.6, cm, 08/19/21 11:48:00 EST, Height, 107.9, kg, 02/24/21 13:39:00 EDT, Dry Weight Start Date: 09/20/21 Status: Ordered omeprazole 20 mg oral enteric coated capsule 1 capsule, By Mouth, Daily, # 90 capsule, 0 Refills, [facility], 167.6, cm, 08/19/21 11:48:00 EST, [...]
--- OUTSIDE RECORDS SUMMARY | 2024-02-23 12:23 | XMS_ITS | Continuity of Care Document ---
Author Organization [facility] [place] Address [address] [place] [address]- Care Team Providers Care Rn Gynecology Name Role Phone Edmond BRANDT, Wesley Kaur Primary Care Physician Encounter [facility] Date(s): 02/08/22 - 03/10/22 [facility] [place] [address] [place] [address]- Allergies, Adverse Reactions, Alerts Substance Reaction Severity [...] 1Result Comment: [facility]: [id number] 2Result Comment: [facility]: 14535-623-55 3Result Comment: [07/11/2017] [facility]; 35096-056-51 HIGH DOSE 4Admin Note: H1N1 5Admin Note: [...] Active Dysplastic toenail rt bidg 2 020 [facility] podiatry(Confirmed) Active Diverticulosis, sigmoid(Confirmed) 09/12/08 Active [...]
--- OUTSIDE RECORDS SUMMARY | 2024-02-23 12:23 | XMS_ITS | Continuity of Care Document ---
Author Organization [facility] Sae lt Address [address] [place] [address]- Care Team Providers Care Food Demonstrator Name Role Phone Kae COOK FROZEN DESSERT, Jovana Ghosh Primary Care Physician Encounter [facility] Date(s): 05/22/23 - 06/21/23 [facility] Adult [address] [place] [address]- Allergies, Adverse Reactions, Alerts Substance Reaction Severity Status ciprofloxacin diarrhea Active codeine nausea Active baclofen SEVERE GI UPSET Active Macrobid GI upset Active Spiriva 1 Active 1urinary Immunizations Given and Recorded Vaccine Date Status Refusal Reason pneumococcal 20-valent conjugate vaccine 1 02/13/23 Given [id number] 12y+ bivalent booster vax 2 08/12/22 Given [...] 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 Given 1Result Comment: [id number] 2Result Comment: [facility]-[id number] left lower deltoid 3Result Comment: [facility]-[id number] left upper deltoid 4Result Comment: [facility]: 98321-851-88 5Result Comment: [07/11/2017] [facility]; 84174-167-06 HIGH DOSE 6Result Comment: [facility]: [id number] 7Admin Note: H1N1 8Admin Note: recieved elsewhere Medications amLODIPine 5 mg oral tablet 1 tablet, By Mouth, Daily, # 90 tablet, 3 Refills, Maintenance, 07/27/22 11:13:00 EDT, [facility], 167.6, cm, 05/10/22 16:16:00 EDT, Height, 97.8, kg, 04/29/22 14:30:00 EDT, Dry Weight Start Date: 07/27/22 Status: Ordered atorvastatin 40 mg oral tablet 1 tablet, By Mouth, Daily, # 90 tablet, 1 Refills, Maintenance, 02/22/23 18:23:00 EDT, [facility], 167.6, cm, 02/13/23 15:04:00 EDT, [...] 13:17:00 EDT, Route to Pharmacy Electronically, [facility], 167.6, cm, 03/23/23 10:29:00 EDT, [...] 06/06/23 7:52:00 EDT, Route to Pharmacy Electronically, [facility] # [facility], 167.6, cm, 03/23/23 10:29:0... [...] Team Personnel Name: Juliet Hay NP Position: [facility] Associate Professional Member Role: Primary Care Nurse Name: Jovana Pal NP Position: [facility] Associate Professional Member Role: PCP Address: Address: [address] [place] [address]- Name: Michaela Castillo RN Position: S RN Member Role: Primary Care Nurse Name: Lary STRATTON, Leticia Barrientos Position: [facility] Onco RN Member Role: Primary Care Nurse Name: Stacy Garcia RN Position: [facility] SN RN Member Role: Primary Care Nurse Name: María Elena Dixon RN Position: [facility] RN Member Role: Primary Care Nurse Care Team Related Persons Name: ISAURO HARKINS Address: [address] [address] Name: AGNIESZKA MAURER Address: [address] [address]
--- OUTSIDE RECORDS SUMMARY | 2024-02-23 12:23 | XMS_ITS | Continuity of Care Document ---
Author Organization [facility] Address [address] [place] [address]- Care Team Providers Care Livestock Farmers Name Role Phone Wesley Pruitt MD Primary Care Physician Encounter [facility] Date(s): 03/20/21 - 07/18/21 [facility] [address] [place] [address]- Attending Physician: Ollie Connor MD Admitting Physician: Ollie Connor MD Referring Physician: Wesley Pruitt MD Allergies, [...] (oldterm) 12/01/01 Given 1Result Comment: [07/11/2017] [facility]; 89553-578-46 HIGH DOSE 2Admin Note: H1N1 3Admin Note: [...] Refills, Soft Stop, 03/04/21 12:12:00 EDT, [facility], 167.6, cm, 02/24/21 14:50:00 EDT, [...] 02/22/21 14:32:00 EDT, Route to Pharmacy Electronically, [facility], Partial fill upon patient request if the prescription is for a schedule I... Start Date: 02/22/21 Status: Ordered fluticasone 50 mcg/inh nasal spray 2 sprays, Nasal, Daily, in each nostril use opposite hnad for each nostril, # 16 Gm, 1 Refills, Maintenance, 01/09/21 10:28:00 EDT, [facility], 2 sprays Nasal Daily,Instr:in each [...] tablet, 0 Refills, Maintenance, 04/14/21 11:41:00 EDT, [facility], 167.6, cm, 02/24/21 14:50:00 EDT, Height, 107.9, kg, 02/24/2113:39:00 EDT, Dry Weight Start Date: 04/14/21 Status: Ordered omeprazole 20 mg oral enteric coated capsule 1 capsule = 20 mg, By Mouth, Daily, # 90 capsule, 3 Refills, Maintenance, 08/26/20 13:24:00 EST, ECCapsule, [facility], 167.6, cm, 08/19/20 7:30:00 EST, [...]
--- OUTSIDE RECORDS SUMMARY | 2024-02-23 12:23 | XMS_ITS | Continuity of Care Document ---
Author Organization [facility] Sae lt Address [address] [place] [address]- Care Team Providers Care Finisher Hand Name Role Phone Kae TOOL AND DIE ASSEMBLER, Jovana Ghosh Primary Care Physician [facility] Date(s): 05/30/23 - 06/29/23 [facility] Adult [address] [place] [address]- Allergies, Adverse Reactions, Alerts Substance Reaction Severity Status ciprofloxacin diarrhea Active codeine nausea Active baclofen SEVERE GI UPSET Active Spiriva 1 Active Macrobid GI upset Active 1urinary Immunizations Given and Recorded Vaccine Date Status Refusal Reason pneumococcal 20-valent conjugate vaccine 1 02/13/23 Given [id number] 12y+ bivalent booster vax 2 08/12/22 Given [...] 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 Given 1Result Comment: [id number] 2Result Comment: [facility]-[id number] left lower deltoid 3Result Comment: [facility]-[id number] left upper deltoid 4Result Comment: [facility]: 18584-361-36 5Result Comment: [07/11/2017] [facility]; 44967-550-85 HIGH DOSE 6Result Comment: [facility]: [id number] 7Admin Note: H1N1 8Admin Note: recieved elsewhere Medications amLODIPine 5 mg oral tablet 1 tablet, By Mouth, Daily, # 90 tablet, 3 Refills, Maintenance, 07/27/22 11:13:00 EDT, [facility], 167.6, cm, 05/10/22 16:16:00 EDT, Height, 97.8, kg, 04/29/22 14:30:00 EDT, Dry Weight Start Date: 07/27/22 Status: Ordered atorvastatin 40 mg oral tablet 1 tablet, By Mouth, Daily, # 90 tablet, 1 Refills, Maintenance, 02/22/23 18:23:00 EDT, [facility], 167.6, cm, 02/13/23 15:04:00 EDT, [...] 13:17:00 EDT, Route to Pharmacy Electronically, [facility], 167.6, cm, 03/23/23 10:29:00 EDT, [...] 06/06/23 7:52:00 EDT, Route to Pharmacy Electronically, [facility] # [facility], 167.6, cm, 03/23/23 10:29:0... [...] Team Personnel Name: Juliet Hay NP Position: [facility] Associate Professional Member Role: Primary Care Nurse Name: Jovana Pal NP Position: [facility] Associate Professional Member Role: PCP Address: Address: [address] [place] [address]- Name: Michaela Castillo RN Position: S RN Member Role: Primary Care Nurse Name: Lary STRATTON, Leticia Barrientos Position: [facility] Onco RN Member Role: Primary Care Nurse Name: Stacy Garcia RN Position: [facility] SN RN Member Role: Primary Care Nurse Name: María Elena Dixon RN Position: [facility] RN Member Role: Primary Care Nurse Care Team Related Persons Name: ISAURO HARKINS Address: [address] [address] Name: AGNIESZKA MAURER Address: [address] [address]
--- OUTSIDE RECORDS SUMMARY | 2024-02-23 12:23 | XMS_ITS | Continuity of Care Document ---
Author Organization [facility] Address [address] [place] [address]- Care Team Providers Care Microbiology Technician Name Role Phone Wesley Pruitt MD Primary Care Physician [phone] Encounter [facility] [place] [place] Date(s): 09/09/20 - 09/16/20 [facility] Adult [address] [place] [address]- Encounter Diagnosis Depression, major(Discharge Diagnosis) - 09/08/20 Anxiety(Discharge Diagnosis) - 09/08/20 Cough variant asthma(Discharge Diagnosis) - 09/08/20 Chronic renal disease, stage 3, moderately decreased glomerular filtration rate (GFR) between 30-59mL/min/1.73 square meter(Discharge Diagnosis) - 09/08/20 GERD without esophagitis egd 2019(Discharge Diagnosis) - 09/08/20 Encounter for monitoring long-term proton pump inhibitor therapy(Discharge Diagnosis) - 09/08/20 Essential familial hyperlipidemia(Discharge Diagnosis) - 09/08/20 Hypertension(Discharge Diagnosis) - 09/08/20 Impaired fasting glucose(Discharge Diagnosis) - 09/08/20 LVH (left ventricular hypertrophy) Echo 2017(Discharge Diagnosis) - 09/08/20 Chronic Tension Type Headache(Discharge Diagnosis) - 09/09/20 Attending Physician: Wesley Pruitt MD Allergies, Adverse [...] (PPV23) (oldterm) 12/01/01 Given 1Result Comment: [07/11/2017] [facility]; 37356-003-24 HIGH DOSE 2Admin Note: H1N1 3Admin Note: recieved elsewhere Medications acetaminophen 325 mg oral tablet 650 mg, By Mouth, Every 6 hours, Refills 0, Maintenance, 09/19/19 11:55:00 EST Start Date: 09/19/19 Status: Ordered amLODIPine 5 mg oral tablet 5 mg, 1, tablet, By Mouth, Daily, # 90 tablet, Refills 3, Tot. Refills 3, Maintenance, 06/29/20 14:01:00 EDT, Route to Pharmacy Electronically, [facility], 167.6, cm, 06/16/20 10:40:00 EDT, Height, 101.2, kg, 09/17/19 10:13:00 EST,... Start Date: 06/29/20 Status: Ordered atorvastatin 40 mg oral tablet 1 tablet = 40 mg, By Mouth, Daily, # 90 tablet, 1 Refills, Soft Stop, 09/07/20 14:24:00 EST, [facility], 167.6, cm, 08/19/20 7:30:00 EST, [...] 05/07/20 9:11:00 EDT, Route to Pharmacy Electronically, [facility], 167.6, cm, 05/07/20 8:56:00 EDT, Height, 101.2, kg, 09/17/19 10:13:00 EST,... Start Date: 05/07/20 Status: Ordered fluticasone 50 mcg/inh nasal spray 2 sprays, Nasal, Daily, in each nostril use opposite hnad for each nostril, # 16 Gm, 3 Refills, Maintenance, 01/10/20 8:38:00 EDT, [facility], 2 sprays Nasal Daily,Instr:in each [...] tablet, 1 Refills, Maintenance, 07/13/20 16:01:00 EDT, [facility], 167.6, cm, 06/30/20 9:53:00 EDT, [...] Effective Dates Health Status Clinical Service Informant Depression, major Discharge Diagnosis 09/08/20 Anxiety Discharge Diagnosis 09/08/20 Cough variant asthma Discharge Diagnosis 09/08/20 Chronic renal disease, stage 3, moderately decreased glomerular filtration rate (GFR) between 30-59 mL/min/1.73 square meter Discharge Diagnosis 09/08/20 GERD without esophagitis egd 2018 Discharge Diagnosis 09/08/20 Encounter for monitoring long-term proton pump inhibitor therapy Discharge Diagnosis 09/08/20 Essential familial hyperlipidemia Discharge Diagnosis 09/08/20 Hypertension Discharge Diagnosis 09/08/20 Impaired fasting glucose Discharge Diagnosis 09/08/20 LVH (left ventricular hypertrophy) Echo 2017 Discharge Diagnosis 09/08/20 Chronic Tension Type Headache Discharge Diagnosis 09/09/20 Vital Signs Most recent to oldest [Reference Range]: 1 Height 167.6 cm (09/09/20 2:14 PM) Social History Social History Type Response Smoking Status Never smoker entered on: 10/09/13 Sex
--- OUTSIDE RECORDS SUMMARY | 2024-02-23 12:23 | XMS_ITS | Continuity of Care Document ---
Author Organization [facility] Address [address] [place] [address]- Care Team Providers Care Sourcing Analyst Name Role Phone Edmond BRANDT, Wesley Kaur Primary Care Physician Encounter [facility] [place] Date(s): 04/29/22 - 05/29/22 [facility] [address] [place] [address]- Allergies, Adverse Reactions, Alerts Substance Reaction Severity [...] Given 1Result Comment: [facility]: 4523-6927-21 2Result Comment: [facility]: 33580-572-03 3Result Comment: [07/11/2017] [facility]; 77877-416-54 HIGH DOSE 4Admin Note: H1N1 5Admin Note: [...] 03/25/22 8:06:00 EDT, Route to Pharmacy Electronically, [facility] # [facility], 167.6, cm, 03/25/22 7:30:... [...] Personnel Name: Edmond BRANDT, Wesley Kaur Address: [address] [place] [address] Adult [place], [place] [address]
--- OUTSIDE RECORDS SUMMARY | 2024-02-23 12:23 | XMS_ITS | Continuity of Care Document ---
Author Organization [facility] Address [address] [place] [address]- Care Team Providers Care Director Internal Communications Name Role Phone Edmond BRANDT, Wesley Kaur Primary Care Physician [place] [facility] [place] Date(s): 11/29/21 - 12/29/21 [facility] Adult [address] [place] [address]- Attending Physician: Imtiaz, Rosamaria Referring Physician: Elena [...] (PPV23) (oldterm) 12/01/01 Given 1Result Comment: [facility]: [id number] 2Result Comment: [facility]: [id number] 3Result Comment: [07/11/2017] [facility]; 62107-450-01 HIGH DOSE 4Admin Note: H1N1 5Admin Note: [...] 14:32:00 EDT, Route to Pharmacy Electronically, [facility], Partial fill upon patient request if the prescription is for a schedule I... Start Date: 02/22/21 Status: Ordered fluticasone 50 mcg/inh nasal spray 2 sprays, Nasal, Daily, in each nostril use opposite hnad for each nostril, # 16 Gm, 1 Refills, Maintenance, 10/28/21 15:32:00 EST, [facility], 2 sprays Nasal Daily,Instr:in each [...] tablet, 0 Refills, Maintenance, 09/20/21 11:54:00 EST, [facility] # [facility], 167.6, cm, 08/19/21 [...] Bone density scan 5 01/30/08 [address] [place] [address] emergency room August 21, 2021 white count [...] EKG normal sinus rhythm rate 75 normal [place] QRS QT. 2tear medial meniscus,bakers cyst 3nad 4h hernia,gastritis 5minor ostepenia Social History Social History Type Response Smoking Status Never smoker entered on: 10/09/13 Sex
--- OUTSIDE RECORDS SUMMARY | 2024-02-23 12:23 | XMS_ITS | Continuity of Care Document ---
Author Organization [facility] Address [address] [place] [address]- Care Team Providers Care Charging Car Operator Name Role Phone Edmond BRANDT, Wesley Kaur Primary Care Physician [place] [facility] [place]06[place]22 - 04/13/22 [facility] Adult [address] [place] [address]- Encounter Diagnosis Acute left-sided low back pain(Discharge Diagnosis) - 04/06/22 Attending Physician: Not on Staff, Attending MD [...] 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 Given 1Result Comment: [facility]: 6314-6884-30 2Result Comment: [facility]: 70841-348-82 3Result Comment: [07/11/2017] [facility]; 52351-612-28 HIGH DOSE 4Admin Note: H1N1 5Admin Note: [...] 03/25/22 8:06:00 EDT, Route to Pharmacy Electronically, [facility] # [facility], 167.6, cm, 03/25/22 7:30:... [...] Dates Health Status Cl inical Service Informant Acute left-sided low back pain Discharge Diagnosis 04/06/22 Vital Signs Most recent to oldest [Reference Range]: 1 Height 167.6 cm (04/06/22 12:42 PM) Weight 99.0 kg (04/06/22 12:42 PM) Body Mass Index [18.5-24.99] 35.24 *>HHI* (04/06/22 12:42 PM) Weight Obtained Via Patient/family state d (04/06/22 12:42 PM) Social History Social History Type Response Smoking Status Never smoker entered on: 10/09/13 Sex
--- OUTSIDE RECORDS SUMMARY | 2024-02-23 12:23 | XMS_ITS | Continuity of Care Document ---
Author Organization [facility] [place] Address [address] [place] [address]- Care Team Providers Care Slat Basket Maker Machine Name Role Phone Edmond BRANDT, Wesley Kaur Primary Care Physician [phone] Encounter [facility] Date(s): 02/08/22 - 03/10/22 [facility] [address] [place] [address]- Allergies, Adverse Reactions, Alerts Substance Reaction Severity [...] 12/01/01 Given 1Result Comment: [facility]: 3202-8904-87 2Result Comment: [facility]: 99016-406-12 3Result Comment: [07/11/2017] [facility]; 43092-013-69 HIGH DOSE 4Admin Note: H1N1 5Admin Note: [...] Active Dysplastic toenail rt bidg 2 020 [facility] podiatry(Confirmed) Active Diverticulosis, sigmoid(Confirmed) 09/12/08 Active [...]
--- OUTSIDE RECORDS SUMMARY | 2024-02-23 12:23 | XMS_ITS | Continuity of Care Document ---
Author Organization [facility] Address [address] [place] [address]- Care Team Providers Care Men'S Furnishings Salesperson Name Role Phone Kae FISHER MUSSEL, Jovana Ghosh Primary Care Physician Encounter [facility] Date(s): 04/13/23 - 05/13/23 [facility] Adult [address] [place] [address]- Allergies, Adverse Reactions, Alerts Substance Reaction Severity Status ciprofloxacin diarrhea Active codeine nausea Active Spiriva 1 Active baclofen SEVERE GI UPSET Active Macrobid GI upset Active 1urinary Immunizations Given and Recorded Vaccine Date Status Refusal Reason pneumococcal 20-valent conjugate vaccine 1 02/13/23 Given [id number] 12y+ bivalent booster vax 2 08/12/22 Given [...] 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 Given 1Result Comment: [id number] 2Result Comment: [facility]-[id number] left lower deltoid 3Result Comment: [facility]-[id number] left upper deltoid 4Result Comment: [facility]: [id number] 5Result Comment: [07/11/2017] [facility]; 35062-075-53 HIGH DOSE 6Result Comment: [facility]: [id number] 7Admin Note: H1N1 8Admin Note: recieved elsewhere Medications amLODIPine 5 mg oral tablet 1 tablet, By Mouth, Daily, # 90 tablet, 3 Refills, Maintenance, 07/27/22 11:13:00 EDT, [facility], 167.6, cm, 05/10/22 16:16:00 EDT, Height, 97.8, kg, 04/29/22 14:30:00 EDT, Dry Weight Start Date: 07/27/22 Status: Ordered atorvastatin 40 mg oral tablet 1 tablet, By Mouth, Daily, # 90 tablet, 1 Refills, Maintenance, 02/22/23 18:23:00 EDT, [facility], 167.6, cm, 02/13/23 15:04:00 EDT, [...] Team Personnel Name: Juliet Hay NP Position: [facility] PCO Associate Professional Member Role: Primary Care Nurse Name: Jovana Pal NP Position: [facility] Associate Professional Member Role: PCP Address: Address: [address] [place] [address]- Name: Michaela Castillo RN Position: [facility] RN Member Role: Primary Care Nurse Name: Leticia Barth RN Position: [facility] Onco RN Member Role: Primary Care Nurse Name: María Elena Dixon RN Position: [facility] RN Member Role: Primary Care Nurse Care Team Related Persons Name: ISAURO HARKINS Address: [address] [address] Name: AGNIESZKA MAURER Address: [address] [address]
--- OUTSIDE RECORDS SUMMARY | 2024-02-23 12:23 | XMS_ITS | Continuity of Care Document ---
Author Organization [facility] Address [address] [place] [address]- Care Team Providers Care Test Preparer Name Role Phone Kae DAMPENER, Jovana Ghosh Primary Care Physician [phone] Encounter [facility] Date(s): 07/10/23 - 08/09/23 [facility] Adult [address] [place] [address]- Allergies, Adverse Reactions, Alerts Substance Reaction Severity [...] pneumococcal 20-valent conjugate vaccine 5 02/13/23 Given [id number] 12y+ bivalent booster vax 6 08/12/22 Given [...] 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 Given 1Result Comment: [id number] 2Result Comment: [facility] [place]-[id number] left upper deltoid 3Result Comment: [facility]: 05819-584-97 4Result Comment: [07/11/2017] [facility] [place]; 60881-389-47 HIGH DOSE 5Result Comment: [id number] 6Result Comment: [facility] [place]-[id number] left lower deltoid 7Result Comment: [facility] [place]: [id number] 8Admin Note: H1N1 9Admin Note: recieved elsewhere Medications amLODIPine 5 mg oral tablet 1 tablet, By Mouth, Daily, # 90 tablet, 3 Refills, Maintenance, 07/27/22 11:13:00 EDT, [facility], 167.6, cm, 05/10/22 16:16:00 EDT, Height, 97.8, kg, 04/29/22 14:30:00 EDT, Dry Weight Start Date: 07/27/22 Status: Ordered atorvastatin 40 mg oral tablet 1 tablet, By Mouth, Daily, # 90 tablet, 1 Refills, Maintenance, 02/22/23 18:23:00 EDT, [facility], 167.6, cm, 02/13/23 15:04:00 EDT, [...] 21:10:26, Tablet Start Date: 03/15/17 Status: Ordered famotidine 40 mg oral tablet 1 tablet = 40 mg, By Mouth, Daily at bedtime, for 30 days, # 30 tablet, 0 Refills, Acute 08/17/23 9:54:00 EST, 07/18/23 9:54:00 EDT, Tablet, [facility] # [facility], 167.6, cm, 07/18/23 9:30:00 EDT, Height, 97.8, kg, 04/29/22 14:30:00 EDT, Dry Weight Start Date: 07/18/23 Stop Date: 08/17/23 Status: Ordered FLUoxetine 20 mg oral capsule [...] 1 Refills, Maintenance, 10/28/21 15:32:00 EST, [facility], 2 sprays Nasal Daily,Instr:in each [...] 90 capsule, 3 Refills, 05/22/23 10:49:00 EDT, [facility], 167.6, cm, 03/23/23 10:29:00 EDT, Height, 97.8, kg, 04/29/22 14:30:00 EDT, Dry Weight Start Date: 05/22/23 Status: Ordered QUEtiapine 25 mg oral tablet 25 mg, 1, tablet, By Mouth, Daily at bedtime, for 90 days, replaces lorazepam, # 90 tablet, Refills1, Tot. Refills 1, Acute 01/06/24 21:09:00 EDT, 07/10/23 21:09:00 EDT, Route to Pharmacy Electronically, [facility], 167.6, cm, 03/03... Start Date: [...] Name: Juliet Hay NP Position: [facility] PCO Associate Professional Member Role: Primary Care Nurse Name: Jovana Pal NP Position: [facility] PCO Associate Professional Member Role: PCP Address: Address: [address] [place] [id number] Name: Michaela Castillo RN Position: [facility] RN Member Role: Primary Care Nurse Name: Leticia Barth RN Position: [facility] Onco RN Member Role: Primary Care Nurse Name: Stacy Garcia RN Position: [facility] SN RN Member Role: Primary Care Nurse Name: María Elena Dixon RN Position: [facility] RN Member Role: Primary Care Nurse Care Team Related Persons Name: ISAURO HARKINS Address: [address] [address] Name: AGNIESZKA MAURER Address: [address] [address]
--- OUTSIDE RECORDS SUMMARY | 2024-02-23 12:23 | XMS_ITS | Continuity of Care Document ---
Author Organization [facility] Address [address] [place] [address]- Care Team Providers Care Tissue Technician Name Role Phone Edmond BRANDT, Wesley Kaur Primary Care Physician [phone] [place] [facility] [place] 11[place]15[place]21 - 12/15/21 [facility] Adult [address] [place] [address]- Allergies, Adverse Reactions, Alerts Substance Reaction Severity [...] 1Result Comment: [facility]: [id number] 2Result Comment: [facility]: 81235-072-89 3Result Comment: [07/11/2017] [facility]; 53506-908-81 HIGH DOSE 4Admin Note: H1N1 5Admin Note: [...] tablet, 0 Refills, Maintenance, 09/20/21 11:54:00 EST, [facility] # [facility], 167.6, cm, 08/19/21 [...]
--- OUTSIDE RECORDS SUMMARY | 2024-02-23 12:23 | XMS_ITS | Continuity of Care Document ---
Author Organization [facility] Address [address] [place] [address]- Care Team Providers Care Laboratory Manager Name Role Phone Edmond BRANDT, Wesley Kaur Primary Care Physician En[place] [facility] [place] Date(s): 03/11/22 - 04/10/22 [facility] [address] [place] [address]- Allergies, Adverse Reactions, Alerts Substance Reaction Severity [...] 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 Given 1Result Comment: [facility]: [id number] 2Result Comment: [facility]: 89509-691-03 3Result Comment: [07/11/2017] [facility]; 76854-545-01 HIGH DOSE 4Admin Note: H1N1 5Admin Note: [...] Acute 04/13/22 14:07:00 EDT, 04/06/22 14:07:00 EDT, [facility], 167.6, cm, 04/06/22 12:42:00 [...] 02/22/21 14:32:00 EDT, Route to Pharmacy Electronically, [facility], Partial fill upon patient request if the prescription is for a schedule I... Start Date: 02/22/21 Status: Ordered fluticasone 50 mcg/inh nasal spray 2 sprays, Nasal, Daily, in each nostril use opposite hnad for each nostril, # 16 Gm, 1 Refills, Maintenance, 10/28/21 15:32:00 EST, [facility], 2 sprays Nasal Daily,Instr:in each [...]
--- OUTSIDE RECORDS SUMMARY | 2024-02-23 12:23 | XMS_ITS | Continuity of Care Document ---
Author Organization [facility] Address [address] [place] [address]- Care Team Providers Care Digester Name Role Phone Edmond BRANDT, Wesley Kaur Primary Care Physician [place] [facility] [place]): 03/25/22 - 04/01/22 [facility] Adult [address] [place] [address]- Encounter Diagnosis Anxiety(Discharge Diagnosis) - 03/25/22 Attending Physician: Kae MEDICINE TEACHER, Jovana Ghosh Allergies, Adverse Reactions, Alerts Substance [...] Given 1Result Comment: [facility]: [id number] 2Result Comment: [facility]: [id number] 3Result Comment: [07/11/2017] [facility]; 02916-562-80 HIGH DOSE 4Admin Note: H1N1 5Admin Note: [...] 03/25/22 8:06:00 EDT, Route to Pharmacy Electronically, [facility] # [facility], 167.6, cm, 03/25/22 7:30:... [...] Diagnosis Type Effective Dates Health Status Clini blaed Service Informant Anxiety Discharge Diagnosis 03/25/22 Vital Signs Most recent to oldest [Reference Range]: 1 Height 167.6 cm (03/25/22 7:30 AM) Weight 100 kg (03/25/22 7:30 AM) Body Mass Index [18.5-24.99] 35.6 *>HHI* (03/25/22 7:30 AM) Weight Obtained Via Patient/family state d (03/25/22 7:30 AM) Social History Social History Type Response Smoking Status Never smoker entered on: 10/09/13 Sex
--- OUTSIDE RECORDS SUMMARY | 2024-02-23 12:23 | XMS_ITS | Continuity of Care Document ---
Author Organization [facility] Address [address] [place] [address]- Care Team Providers Care Mapper Name Role Phone Kae Jovana BUNDY Primary Care Physician [phone] [place] [facility] [place](s): 01/11/24 - 02/10/24 [facility] [address] [place] [address] [place] Allergies, Adverse Reactions, Alerts Substance Reaction Severity [...] pneumococcal 20-valent conjugate vaccine 5 02/13/23 Given [id number] 12y+ bivalent booster vax 6 08/12/22 Given [...] 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 Given 1Result Comment: [id number] 2Result Comment: [facility]-[id number] left upper deltoid 3Result Comment: [facility]: [id number] 4Result Comment: [07/11/2017] [facility]; 64315-804-26 HIGH DOSE 5Result Comment: [id number] 6Result Comment: [facility]-[id number] left lower deltoid 7Result Comment: [facility]: [id number] 8Admin Note: H1N1 9Admin Note: recieved elsewhere Medications amLODIPine 5 mg oral tablet 1 tablet, By Mouth, Daily, # 90 tablet, 1 Refills, Maintenance, 02/02/24 14:29:00 EDT, [facility], 167.6, cm, 02/02/24 13:57:00 EDT, Height, 97.8, kg, 04/29/22 14:30:00 EDT, Dry Weight Start Date: 02/02/24 Status: Ordered atorvastatin 40 mg oral tablet 1 tablet, By Mouth, Daily, # 90 tablet, 1 Refills, Maintenance, 02/02/24 14:29:00 EDT, [facility], 167.6, cm, 02/02/24 13:57:00 EDT, [...] 14:30:00 EDT, Route to Pharmacy Electronically, [facility], 167.6, cm, 02/02/24 13:57:00EDT, Height, 97.8, kg, 04/29/22 14:30:00 EDT, Dry W... Start Date: 02/02/24 Status: Ordered fluticasone 50 mcg/inh nasal spray 2 sprays, Nasal, Daily, in each nostril use opposite hnad for each nostril, # 16 Gm, 1 Refills, Maintenance, 10/28/21 15:32:00 EST, [facility], 2 sprays Nasal Daily,Instr:in each [...] Confirmed Active Aortic heart murmur;nil echo 2017 1 Confirmed Active Back pain, chronic Confirmed [...] Associate Professional Member Role: PCP Address: Address: [address] [place] [address] Name: Michaela Castillo RN Position: [facility] RN Member Role: Primary Care Nurse Name: Leticia Barth RN Position: [facility] Onco RN Member Role: Primary Care Nurse Name: Stacy Garcia RN Position: [facility]B Nurse Member Role: Primary Care Nurse Name: María Elena Dixon RN Position: [facility] RN Member Role: Primary Care Nurse Care Team Related Persons Name: ISAURO HARKINS Address: [address] [address] Name: AGNIESZKA MAURER Address: [address] [address]
--- OUTSIDE RECORDS SUMMARY | 2024-02-23 12:23 | XMS_ITS | Continuity of Care Document ---
Author Organization [facility], [place] [place] [facility] Sae lt Address [address] [place] [address]- Care Team Providers Care Inspector Balance Truing Name Role Phone Kae GREGOR, Jovana Ghosh Primary Care Physician [phone] [facility]23 - 07/25/23 [facility] [place] [place] [facility] Adult [address] [place] [address]- Encounter Diagnosis Generalized anxiety disorder with panic attacks(Discharge Diagnosis) - 07/18/23 Hypertension(Discharge Diagnosis) - 07/18/23 GERD without esophagitis egd 2019(Discharge Diagnosis) - 07/18/23 Chronic renal disease, stage 3, moderately decreased glomerular filtration rate (GFR) between 30-59mL/min/1.73 square meter(Discharge Diagnosis) - 07/18/23 Severe obesity (BMI 35.0-39.9) with comorbidity(Discharge Diagnosis) - 07/18/23 Attending Physician: Not on Staff, Attending MD [...] pneumococcal 20-valent conjugate vaccine 5 02/13/23 Given [id number] 12y+ bivalent booster vax 6 08/12/22 Given [...] 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 Given 1Result Comment: [id number] 2Result Comment: [facility]-[id number] left upper deltoid 3Result Comment: [facility]: [id number] 4Result Comment: [07/11/2017] [facility]; 88680-412-86 HIGH DOSE 5Result Comment: [id number] 6Result Comment: [facility]-[id number] left lower deltoid 7Result Comment: [facility]: [id number] 8Admin Note: H1N1 9Admin Note: recieved elsewhere [...] 1 Refills, Maintenance, 02/22/23 18:23:00 EDT, [facility], 167.6, cm, 02/13/23 15:04:00 EDT, [...] 05/17/23 13:17:00 EDT, Route to Pharmacy Electronically, [facility], 167.6, cm, 03/23/23 10:29:00 EDT, Height, 97.8, kg, 04/29/22 14:30:00 EDT, Dry Weight Start Date: 05/17/23 Status: Ordered fluticasone 50 mcg/inh nasal spray 2 sprays, Nasal, Daily, in each nostril use opposite hnad for each nostril, # 16 Gm, 1 Refills, Maintenance, 10/28/21 15:32:00 EST, [facility], 2 sprays Nasal Daily,Instr:in each [...] capsule, 3 Refills, 05/22/23 10:49:00 EDT, [facility], 167.6, cm, 03/23/23 10:29:00 EDT, [...] Effective Dates Health Status Clinical Service Informant Generalized anxiety disorder with panic attacks Discharge Diagnosis 07/18/23 Hypertension Discharge Diagnosis 07/18/23 GERD without esophagitis egd 2019 Discharge Diagnosis 07/18/23 Chronic renal disease, stage 3, moderately decreased glomerular filtration rate (GFR) between 30-59 mL/min/1.73 square meter Discharge Diagnosis 07/18/23 Severe obesity (BMI 35.0-39.9) with comorbidity Discharge Diagnosis 07/18/23 Vital Signs Most recent to oldest [Reference Range]: 1 Height 167.6 cm (07/18/23 9:30 AM) Weight 109.9 kg (07/18/23 9:30 AM) Oxygen Saturation [94-100 %] 99 % (07/18/23 9:30 AM) Pulse Rate [55-90 bpm] 74 bpm (07/18/23 9:30 AM) Body Mass Index [18.5-24.99 kg/m2] 39.12 kg/m2 *>HHI* (07/18/23 9:30 AM) Blood Pressure [90-138/55-84 mm Hg] 101/ 65mm Hg (07/18/23 9:30 AM) Temperature [96.8-100.4 DegF] 97.6 DegF (07/18/23 9:30 AM) Mode of Delivery (Oxygen) Room air (07/18/23 9:30 AM) Blood pressure sites Arm, left (07/18/23 9:30 AM) Temperature Route Oral (07/18/23 9:30 AM) Weight Obtained Via Standing scale (07/18/23 9:30 AM) Social History Social History Type Response Smoking Status Never smoker entered on: 10/09/13 Sex Note * Hanh Porter: VERIFY, PERFORM, SIGN Event Display: Patient Education/Instruction Authored Date: [id number] [facility] *BMP So [facility] Adlt Clinical Summary Name BRIANNA HARKINS Age 77 Years 1945 PCP [facility] Pal [id number] Visit Date 07/18/2023 09:24:00 Additional Instructions: Scheduled Appointments?? Future Appointments ?*BMP??So??Trace??Adlt ?[address],??[address] ?Phone:??--?Fax:??-- ?Appt. Date:??09/04/2023?2:30 PM ?Scheduled Provider:??Jovana Pal NP. Follow-Up Instructions ?? Diagnosis Medications: Please continue your medications until treatment is completed or stopped by your provider. Discuss any questions related to medications with your provider. New Medications [facility], [address], [place] [phone], [phone] Famotidine (famotidine 40 mg oral tablet) 1 tab(s) Oral Daily at Bedtime for 30 Days. Refills: 0. Next Dose: Medications to Continue Taking That Have Changed These medications were not printed or sent to your pharmacy - Calcium And Vitamin D Combination (calcium (as citrate)-vitamin D 315 mg-250 intl units oral tablet) 1 tab(s) Oral twice a day. Refills: 3. Next Dose: Medications to Continue with No Changes These medications were not printed or sent to your pharmacy Amlodipine (amLODIPine 5 mg oral tablet) 1 tab(s) Oral Daily. Refills: 3. Next Dose: Atorvastatin (atorvastatin 40 mg oral tablet) 1 tab(s) Oral Daily. Refills: 1. Next Dose: Cholecalciferol (cholecalciferol 2000 intl units oral tablet) 1 tablet By Mouth Daily -;2 weekend. Refills: 11. Next Dose: Cyanocobalamin (Eligen B12 1000 mcg oral tablet) 1 tab(s) Oral Daily. on an empty stomach. Refills:11. Next Dose: Dicyclomine 20 Milligram. Next Dose: Fluoxetine (FLUoxetine 20 mg oral capsule) 1 capsule Oral Daily. Refills: 1. Next Dose: Fluticasone Nasal (fluticasone 50 mcg/inh nasal spray) 2 spray(s) Nasal Daily. in each nostril use opposite hnad for each nostril. Refills: 1. Next Dose: Loperamide (Imodium A-D 2 mg oral tablet) 1 tab(s) Oral every 4 hours as needed for loose stool. Next Dose: Omeprazole (omeprazole 20 mg oral enteric coated capsule) 1 capsule Oral Daily. Refills: 3. Next Dose: Quetiapine (QUEtiapine 25 mg oral tablet) 1 tab(s) Oral Daily at Bedtime for 90 Days. replaces lorazepam. Refills: 1. Next Dose: Valsartan (valsartan 160 mg oral tablet) 1 tab(s) Oral Daily. Refills: 3. Next Dose: Zoledronic Acid (Reclast 5 mg/100 mL intravenous solution) 5 Milligram Intravenous Infusion once for 1 doses/times. Next Dose: Contact Your Physician Prior to Taking the Following Medications Lorazepam (LORazepam 0.5 mg oral tablet) 1 tab(s) Oral Daily at Bedtime. use sparingly- not regularly. Refills: 0. Allergy Info:?? Spiriva; Macrobid; baclofen; codeine; ciprofloxacin Medications Given This Visit Medication Dose Route influenza virus vaccine, inactivated (influenza virus, inactivated vacc (High Dose)) 0.7 mL Intramuscular Future Orders ?No future orders Vital Signs Height 167.6 cm Weight 109.9 kg BMI 39.12 kg/m2 Blood Pressure 101 mm Hg/65 mm Hg Temperature 97.6 DegF Pulse Rate 74 bpm Respiratory Rate 02 Sat Mode of Delivery 99 %/Room air You can now view a summary of your hospital visit from the comfort of your home through a free online portal called [employer]. [employer] is a website that allows you to securely view your medical information including discharge summary, medications and follow-up visits. ??You can alsosend a secure electronic message to your doctor???s office to request appointments, renew medications or just ask a question. You can enroll at [email or web address] or register during your next office [...] primary care provider, you may find a [facility] provider by calling [facility] Link at [phone]. [facility], in keeping with [facility] guidance, no longer requires face masks for staff, patientsor visitors in most situations. Similar to time spent indoors at other locations, there is the chance that you were exposed to respiratory viruses during your time with us (such as flu or COVID-19).? If you develop symptoms concerning for a viral respiratory infection, please seek testing (and treatment if indicated) from your medical provider or home test kit. For information about the plan of care [...] Personnel Name: Satnam BUNDY, Juliet Snyder Position: [facility] Associate Professional Member Role: Primary Care Nurse Name: Jovana Pal NP Position: [facility] Associate Professional Member Role: PCP Address: Address: [address] [place] [address]- Name: Michaela Castillo RN Position: S RN Member Role: Primary Care Nurse Name: Leticia Barth RN Position: [facility] Onco RN Member Role: Primary Care Nurse Name: Stacy Garcia RN Position: [facility] SN RN Member Role: Primary Care Nurse Name: María Elena Dixon RN Position: S RN Member Role: Primary Care Nurse Care Team Related Persons Name: ISAURO HARKINS Address: [address] [address] Name: AGNIESZKA MAURER Address: [place] [address]
--- OUTSIDE RECORDS SUMMARY | 2024-02-23 12:23 | XMS_ITS | Continuity of Care Document ---
Author Organization [facility] Sae lt Address [address] [place] [address]- Care Team Providers Care Electronics Technology Instructor Name Role Phone Kae ASSET PROTECTION REPRESENTATIVE, Jovana Ghosh Primary Care Physician [phone] [facility]): 02/[facility]23 - 03/04/23 [facility] Adult [address] [place] [address]- Allergies, Adverse Reactions, Alerts Substance Reaction Severity Status ciprofloxacin diarrhea Active codeine nausea Active baclofen SEVERE GI UPSET Active Macrobid GI upset Active Spiriva 1 Active 1urinary Immunizations Given and Recorded Vaccine Date Status Refusal Reason pneumococcal 20-valent conjugate vaccine 1 02/13/23 Given [id number] 12y+ bivalent booster vax 2 08/12/22 Given [...] 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 Given 1Result Comment: [id number] 2Result Comment: [facility]-[id number] left lower deltoid 3Result Comment: [facility]-[id number] left upper deltoid 4Result Comment: [facility]: [id number] 5Result Comment: [07/11/2017] [facility]; 89892-363-11 HIGH DOSE 6Result Comment: [facility]: [id number] 7Admin Note: H1N1 8Admin Note: recieved elsewhere Medications amLODIPine 5 mg oral tablet 1 tablet, By Mouth, Daily, # 90 tablet, 3 Refills, Maintenance, 07/27/22 11:13:00 EDT, [facility], 167.6, cm, 05/10/22 16:16:00 EDT, Height, 97.8, kg, 04/29/22 14:30:00 EDT, Dry Weight Start Date: 07/27/22 Status: Ordered atorvastatin 40 mg oral tablet 1 tablet, By Mouth, Daily, # 90 tablet, 1 Refills, Maintenance, 02/22/23 18:23:00 EDT, [facility], 167.6, cm, 02/13/23 15:04:00 EDT, [...] Team Personnel Name: Juliet Hay NP Position: [facility] Associate Professional Member Role: Primary Care Nurse Name: Jovana Pal NP Position: [facility] Associate Professional Member Role: PCP Address: Address: [address] [place] [address]- Name: Michaela Castillo RN Position: S RN Member Role: Primary Care Nurse Name: Leticia Barth RN Position: [facility] Onco RN Member Role: Primary Care Nurse Name: María Elena Dixon RN Position: [facility] RN Member Role: Primary Care Nurse Care Team Related Persons Name: TORIN ISAURO Address: [address] [address] Name: AGNIESZKA MAURER Address: [address] [address]
--- OUTSIDE RECORDS SUMMARY | 2024-02-23 12:24 | XMS_ITS | Continuity of Care Document ---
Author Organization [facility] Sae lt Address [address] [place] [address]- Care Team Providers Care Mixer Tender Name Role Phone Kae STRAP FOLDING MACHINE OPERATOR, Jovana Ghosh Primary Care Physician [phone] [facility]): 07/17/23 - 08/16/23 [facility] Adult [address] [place] [address]- Allergies, Adverse Reactions, Alerts Substance Reaction Severity [...] pneumococcal 20-valent conjugate vaccine 5 02/13/23 Given [id number] 12y+ bivalent booster vax 6 08/12/22 Given [...] 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 Given 1Result Comment: [id number] 2Result Comment: [facility]-[id number] left upper deltoid 3Result Comment: [facility]: [id number] 4Result Comment: [07/11/2017] [facility]; 16480-112-77 HIGH DOSE 5Result Comment: [id number] 6Result Comment: [facility]-[id number] left lower deltoid 7Result Comment: [facility]: [id number] 8Admin Note: H1N1 9Admin Note: recieved elsewhere Medications amLODIPine 5 mg oral tablet 1 tablet, By Mouth, Daily, # 90 tablet, 3 Refills, Maintenance, 07/27/22 11:13:00 EDT, [facility], 167.6, cm, 05/10/22 16:16:00 EDT, Height, 97.8, kg, 04/29/22 14:30:00 EDT, Dry Weight Start Date: 07/27/22 Status: Ordered atorvastatin 40 mg oral tablet 1 tablet, By Mouth, Daily, # 90 tablet, 1 Refills, Maintenance, 02/22/23 18:23:00 EDT, [facility], 167.6, cm, 02/13/23 15:04:00 EDT, [...] 1 Refills, Maintenance, 10/28/21 15:32:00 EST, [facility], 2 sprays Nasal Daily,Instr:in each [...] 90 capsule, 3 Refills, 05/22/23 10:49:00 EDT, [facility], 167.6, cm, 03/23/23 10:29:00 EDT, Height, 97.8, kg, 04/29/22 14:30:00 EDT, Dry Weight Start Date: 05/22/23 Status: Ordered QUEtiapine 25 mg oral tablet 25 mg, 1, tablet, By Mouth, Daily at bedtime, for 90 days, replaces lorazepam, # 90 tablet, Refills1, Tot. Refills 1, Acute 01/06/24 21:09:00 EDT, 07/10/23 21:09:00 EDT, Route to Pharmacy Electronically, [facility], 167.6, cm, 03/03... Start Date: [...] Professional Member Role: PCP Address: Address: [address] [place] [id number] Name: Michaela Castillo RN Position: [facility] [...] Team Related Persons Name: ISAURO HARKINS Address: [address] [address] Name: AGNIESZKA MAURER Address: [address] [address]
--- OUTSIDE RECORDS SUMMARY | 2024-02-23 12:24 | XMS_ITS | Continuity of Care Document ---
Author Organization [facility] Sae lt Address [address] [place] [address]- Care Team Providers Care Shellfish Shucker Name Role Phone Edmond BRANDT, Wesley Kaur Primary Care Physician [facility] 07[facility]01/20 - 07/31/20 [facility] Adult [address] [place] [address]- [place] Allergies, Adverse Reactions, Alerts Substance Reaction [...] Given 1Result Comment: [07/11/2017] [facility]; 22784-305-90 HIGH DOSE 2Admin Note: H1N1 3Admin Note: [...] Refills, Soft Stop, 03/09/20 11:18:00 EDT, [facility], 167.6, cm, 09/19/19 7:55:00 EST, [...] 05/07/20 9:11:00 EDT, Route to Pharmacy Electronically, [facility], 167.6, cm, 05/07/20 8:56:00 EDT, Height, 101.2, kg, 09/17/19 10:13:00 EST,... Start Date: 05/07/20 Status: Ordered fluticasone 50 mcg/inh nasal spray 2 sprays, Nasal, Daily, in each nostril use opposite hnad for each nostril, # 16 Gm, 3 Refills, Maintenance, 01/10/20 8:38:00 EDT, [facility], 2 sprays Nasal Daily,Instr:in each [...] 1 Refills, Maintenance, 07/13/20 16:01:00 EDT, [facility], 167.6, cm, 06/30/20 9:53:00 EDT, Height, 101.2, kg, 09/17/19 10:13:00 EST, Dry Weight Start Date: 07/13/20 Status: Ordered omeprazole 20 mg oral enteric coated capsule 1 capsule = 20 mg, By Mouth, Daily, # 90 capsule, 3 Refills, Maintenance, 08/15/19 10:35:59 EST, ECCapsule, [facility] Start Date: 08/15/19 Stop Date: [...]
--- OUTSIDE RECORDS SUMMARY | 2024-02-23 12:24 | XMS_ITS | Continuity of Care Document ---
Author Organization [facility] Trace Sae lt Address [address] [place] [address]- Care Team Providers Care Director Of Occupational Health Name Role Phone Wesley Pruitt MD Primary Care Physician [phone] [facility] Date(s): 07/26/21 - 09/08/21 [facility] Adult [address] [place] [address]- Attending Physician: Jovana Pal NP Referring Physician: Wesley Pruitt MD Allergies, [...] 1Result Comment: [facility]: [id number] 2Result Comment: [facility]: [id number] 3Result Comment: [07/11/2017] [facility]; 16324-005-13 HIGH DOSE 4Admin Note: H1N1 5Admin Note: [...] 1 Refills, Maintenance, 07/26/21 14:47:00 EDT, [facility], 167.6, cm, 07/26/21 14:38:00 EDT, [...]
--- OUTSIDE RECORDS SUMMARY | 2024-02-23 12:24 | XMS_ITS | Continuity of Care Document ---
Author Organization [facility] Trace Sae lt Address [address] [place] [address]- Care Team Providers Care Card Feeder Name Role Phone Edmond BRANDT, Wesley Kaur Primary Care Physician [phone] [facility] Date(s): 11/30/20 - 12/30/20 [facility] Adult [address] [place] [address]- Allergies, Adverse Reactions, Alerts Substance Reaction Severity [...] (PPV23) (oldterm) 12/01/01 Given 1Result Comment: [07/11/2017] [facility]; 88356-975-13 HIGH DOSE 2Admin Note: H1N1 3Admin Note: recieved elsewhere Medications acetaminophen 325 mg oral tablet 650 mg, By Mouth, Every 6 hours, Refills 0, Maintenance, 09/19/19 11:55:00 EST Start Date: 09/19/19 Status: Ordered amLODIPine 5 mg oral tablet 5 mg, 1, tablet, By Mouth, Daily, # 90 tablet, Refills 3, Tot. Refills 3, Maintenance, 06/29/20 14:01:00 EDT, Route to Pharmacy Electronically, [facility], 167.6, cm, 06/16/20 10:40:00 EDT, Height, 101.2, kg, 09/17/19 10:13:00 EST,... Start Date: 06/29/20 Status: Ordered atorvastatin 40 mg oral tablet 1 tablet = 40 mg, By Mouth, Daily, # 90 tablet, 1 Refills, Soft Stop, 09/07/20 14:24:00 EST, [facility], 167.6, cm, 08/19/20 7:30:00 EST, [...] 1 Refills, Maintenance, 10/23/20 9:37:00 EST, [facility], 2 sprays Nasal Daily,Instr:in each [...] Acute 01/06/21 14:01:00 EDT, 12/07/20 14:01:00 EST, [facility], early fill, 167.6, cm, 12/07/20 13:11:00 EST, Height, 101.2, kg, 09/17/19 10:13:00 EST, Dry We... Start Date: 12/07/20 Stop Date: 01/06/21 Status: Ordered LORazepam 0.5 mg oral tablet 1 tablet = 0.5 mg, By Mouth, Daily at bedtime, # 90 tablet, 1 Refills, Maintenance, 07/13/20 16:01:00 EDT, [facility], 167.6, cm, 06/30/20 9:53:00 EDT, [...]
--- OUTSIDE RECORDS SUMMARY | 2024-02-23 12:24 | XMS_ITS | Continuity of Care Document ---
Author Organization [facility] Sae lt Address [address] [place] [address]- Care Team Providers Care Neonatal Critical Care Nurse Name Role Phone Wesley Pruitt MD Primary Care Physician Encounter [facility] Date(s): 11/12/21 - 12/29/21 [facility] Adult [address] [place] [address]- Attending Physician: Wesley Pruitt MD Allergies, Adverse [...] Given 1Result Comment: [facility]: [id number] 2Result Comment: [facility]: [id number] 3Result Comment: [07/11/2017] [facility]; 50627-739-68 HIGH DOSE 4Admin Note: H1N1 5Admin Note: [...] 14:32:00 EDT, Route to Pharmacy Electronically, [facility], Partial fill upon patient request if the prescription is for a schedule I... Start Date: 02/22/21 Status: Ordered fluticasone 50 mcg/inh nasal spray 2 sprays, Nasal, Daily, in each nostril use opposite hnad for each nostril, # 16 Gm, 1 Refills, Maintenance, 10/28/21 15:32:00 EST, [facility], 2 sprays Nasal Daily,Instr:in each [...] tablet, 0 Refills, Maintenance, 09/20/21 11:54:00 EST, [facility], 167.6, cm, 08/19/21 [...]
--- OUTSIDE RECORDS SUMMARY | 2024-02-23 12:24 | XMS_ITS | Continuity of Care Document ---
Author Organization [facility] Trace Sae lt Address [address] [place] [address]- Care Team Providers Care Abrasives Sales Representative Name Role Phone Edmond BRANDT, Wesley Kaur Primary Care Physician [place] [facility] Date(s): 08/20/21 - 09/19/21 [facility] [place] [address] [place] [address]- Allergies, Adverse Reactions, Alerts Substance Reaction Severity [...] 12/01/01 Given 1Result Comment: [facility]: [id number] 2Result Comment: [facility]: [id number] 3Result Comment: [07/11/2017] [facility]; 82768-631-56 HIGH DOSE 4Admin Note: H1N1 5Admin Note: [...] 14:32:00 EDT, Route to Pharmacy Electronically, [email or web address], Partial fill upon patient request [...] 1 Refills, Maintenance, 07/26/21 14:47:00 EDT, [email or web address], 167.6, cm, 07/26/21 14:38:00 EDT, [...]
--- OUTSIDE RECORDS SUMMARY | 2024-02-23 12:24 | XMS_ITS | Continuity of Care Document ---
Author Organization [facility] Trace Sae lt Address [address] [place] [address]- Care Team Providers Care Professional Golf Tournament Player Name Role Phone Edmond BRANDT, Wesley Kaur Primary Care Physician [place] [facility] [place] 05/01/20 - 05/08/20 [facility] Adult [address] [place] [address]- [facility] Encounter Diagnosis Diarrhea(Discharge Diagnosis) - 05/01/20 Headache(Discharge Diagnosis) - 05/01/20 Anxiety(Discharge Diagnosis) - 05/01/20 IBS (irritable bowel syndrome)(Discharge Diagnosis) - 05/01/20 Attending Physician: Sha BUNDY, Tanesha Ghosh Allergies, Adverse Reactions, Alerts Substance Reaction [...] Given 1Result Comment: [07/11/2017] [facility]; 93029-088-88 HIGH DOSE 2Admin Note: H1N1 3Admin Note: [...] 3 Refills, Maintenance, 01/10/20 8:38:00 EDT, [facility], 2 sprays Nasal Daily,Instr:in each [...] 1 Refills, Maintenance, 03/26/20 15:58:00 EDT, [facility], 167.6, cm, 03/10/20 15:20:00 EDT, Height, 101.2, kg, 09/17/1910:13:00 EST, Dry Weight Start Date: 03/26/20 Status: Ordered omeprazole 20 mg oral enteric coated capsule 1 capsule = 20 mg, By Mouth, Daily, # 90 capsule, 3 Refills, Maintenance, 08/15/19 10:35:59 EST, ECCapsule, [facility] Start Date: 08/15/19 Stop Date: 08/09/20 Status: Ordered Singulair 10 mg oral tablet 10 mg, 1, tablet, By Mouth, Daily in PM, # 90 tablet, Refills 1, Tot. Refills 1, Maintenance, 12/06/19 10:36:00 EST, Route to Pharmacy Electronically, [facility], 167.6, cm, 09/19/19 7:55:00 EST, Height, 101.2, kg, 09/17/19 10:13:00... Start Date: 12/06/19 Status: Ordered Skelaxin 800 mg oral tablet 1 tablet = 800 mg, By Mouth, 2 times a day, PRN pain/ muscle spasm, for 7 days, # 14 tablet, 0 Refills, Acute 05/15/20 11:32:00 EDT, 05/08/20 11:32:00 EDT, Tablet, [facility], 167.6, cm, 05/07/20 [...] 0 Refills, Maintenance, 05/07/20 9:13:00 EDT, Gel, [facility], 2 Gm Topically [...] Dates Health Status Cl inical Service Informant Diarrhea Discharge Diagnosis 05/01/20 Headache Discharge Diagnosis 05/01/20 Anxiety Discharge Diagnosis 05/01/20 IBS (irritable bowel syndrome) Discharge Diagnosis 05/01/20 Social History Social History Type Response Smoking Status Never smoker entered on: 10/09/13 Sex
--- OUTSIDE RECORDS SUMMARY | 2024-02-23 12:24 | XMS_ITS | Continuity of Care Document ---
Author Organization [facility] Sae lt Address [address] [place] [address]- Care Team Providers Care Deputy Chief Magistrate Name Role Phone Edmond BRANDT, Wesley Kaur Primary Care Physician [phone] Encounter [facility] Date(s): 04/06/22 - 05/06/22 [facility] Adult [address] [place] [address]- Allergies, Adverse Reactions, Alerts Substance Reaction Severity [...] 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 Given 1Result Comment: [facility]: [id number] 2Result Comment: [facility]: [id number] 3Result Comment: [07/11/2017] [facility]; 93078-032-10 HIGH DOSE 4Admin Note: H1N1 5Admin Note: [...] 03/25/22 8:06:00 EDT, Route to Pharmacy Electronically, [facility], 167.6, cm, 03/25/22 7:30:... Start Date: 03/25/22 Status: Ordered FLUoxetine 20 mg oral capsule 20 mg, 1, capsule, By Mouth, Daily, # 90 capsule, Refills 3, Tot. Refills 3, Maintenance, 02/22/21 14:32:00 EDT, Route to Pharmacy Electronically, [facility], Partial fill upon patient request if the prescription is for a schedule I... Start Date: 02/22/21 Status: Ordered fluticasone 50 mcg/inh nasal spray 2 sprays, Nasal, Daily, in each nostril use opposite hnad for each nostril, # 16 Gm, 1 Refills, Maintenance, 10/28/21 15:32:00 EST, [facility], 2 sprays Nasal [...]
--- OUTSIDE RECORDS SUMMARY | 2024-02-23 12:24 | XMS_ITS | Continuity of Care Document ---
Author Organization [facility] Address [address] [place] [address]- Care Team Providers Care District Plant Superintendent Name Role Phone Kae AOC DIRECTOR COMBAT PLANS OFFICER, Jovana Ghosh Primary Care Physician [place] [facility] - 07/08/[address] [address] Attending Physician: Rosamaria Kitchen Admitting Physician: Rosamaria Kitchen Referring Physician: Rosamaria Kitchen Allergies, Adverse Reactions, Alerts Substance Reaction Severity Status ciprofloxacin diarrhea Active codeine nausea Active baclofen SEVERE GI UPSET Active Macrobid GI upset Active Spiriva 1 Active 1urinary Immunizations Given and Recorded Vaccine Date Status Refusal Reason pneumococcal 20-valent conjugate vaccine 1 02/13/23 Given [id number] 12y+ bivalent booster vax 2 08/12/22 Given [...] 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 Given 1Result Comment: [id number] 2Result Comment: [facility]-[id number] left lower deltoid 3Result Comment: [facility]-[id number] left upper deltoid 4Result Comment: [facility]: [id number] 5Result Comment: [07/11/2017] [facility]; 37659-420-58 HIGH DOSE 6Result Comment: [facility]: [id number] 7Admin Note: H1N1 8Admin Note: recieved elsewhere Medications amLODIPine 5 mg oral tablet 1 tablet, By Mouth, Daily, # 90 tablet, 3 Refills, Maintenance, 07/27/22 11:13:00 EDT, [facility], 167.6, cm, 05/10/22 16:16:00 EDT, Height, 97.8, kg, 04/29/22 14:30:00 EDT, Dry Weight Start Date: 07/27/22 Status: Ordered atorvastatin 40 mg oral tablet 1 tablet, By Mouth, Daily, # 90 tablet, 1 Refills, Maintenance, 02/22/23 18:23:00 EDT, [facility], 167.6, cm, 02/13/23 15:04:00 EDT, [...] 05/17/23 13:17:00 EDT, Route to Pharmacy Electronically, [facility], 167.6, cm, 03/23/23 10:29:00 EDT, Height, 97.8, kg, 04/29/22 14:30:00 EDT, Dry Weight Start Date: 05/17/23 Status: Ordered fluticasone 50 mcg/inh nasal spray 2 sprays, Nasal, Daily, in each nostril use opposite hnad for each nostril, # 16 Gm, 1 Refills, Maintenance, 10/28/21 15:32:00 EST, [facility], 2 sprays Nasal Daily,Instr:in each [...] Team Personnel Name: Juliet Hay NP Position: [facility] PCO Associate Professional Member Role: Primary Care Nurse Name: Jovana Pal NP Position: [facility] PCO Associate Professional Member Role: PCP Address: Address: [address] [place] [address]- Name: Michaela Castillo RN Position: [facility] RN Member Role: Primary Care Nurse Name: Leticia Barth RN Position: [facility] Onco RN Member Role: Primary Care Nurse Name: Stacy Garcia RN Position: [facility] RN Member Role: Primary Care Nurse Name: María Elena Dixon RN Position: [facility] RN Member Role: Primary Care Nurse Care Team Related Persons Name: ISAURO HARKINS Address: [address] [address] Name: AGNIESZKA MUARER Address: [address] [address]
--- OUTSIDE RECORDS SUMMARY | 2024-02-23 12:24 | XMS_ITS | Continuity of Care Document ---
Author Organization [facility] Sae lt Address [address] [place] [address]- Care Team Providers Care Raw Stock Machine Feeder Name Role Phone Edmond BRANDT, Wesley Kaur Primary Care Physician [place] [facility] [place]09[place]20 - 10/09/20 [facility] Adult [address] [place] [address]- Attending Physician: [email or web address], [email or web address] Referring Physician: Elena Dowd Allergies, Adverse Reactions, [...] (PPV23) (oldterm) 12/01/01 Given 1Result Comment: [07/11/2017] [facility]; 15533-119-56 HIGH DOSE 2Admin Note: H1N1 3Admin Note: recieved elsewhere Medications acetaminophen 325 mg oral tablet 650 mg, By Mouth, Every 6 hours, Refills 0, Maintenance, 09/19/19 11:55:00 EST Start Date: 09/19/19 Status: Ordered amLODIPine 5 mg oral tablet 5 mg, 1, tablet, By Mouth, Daily, # 90 tablet, Refills 3, Tot. Refills 3, Maintenance, 06/29/20 14:01:00 EDT, Route to Pharmacy Electronically, [facility], 167.6, cm, 06/16/20 10:40:00 EDT, Height, 101.2, kg, 09/17/19 10:13:00 EST,... Start Date: 06/29/20 Status: Ordered atorvastatin 40 mg oral tablet 1 tablet = 40 mg, By Mouth, Daily, # 90 tablet, 1 Refills, Soft Stop, 09/07/20 14:24:00 EST, [facility], 167.6, cm, 08/19/20 7:30:00 EST, [...] 9:11:00 EDT, Route to Pharmacy Electronically, [facility], 167.6, cm, 05/07/20 8:56:00 EDT, Height, 101.2, kg, 09/17/19 10:13:00 EST,... Start Date: 05/07/20 Status: Ordered fluticasone 50 mcg/inh nasal spray 2 sprays, Nasal, Daily, in each nostril use opposite hnad for each nostril, # 16 Gm, 3 Refills, Maintenance, 01/10/20 8:38:00 EDT, [facility], 2 sprays Nasal Daily,Instr:in each [...] tablet, 1 Refills, Maintenance, 07/13/20 16:01:00 EDT, [facility], 167.6, cm, 06/30/20 9:53:00 EDT, Height, 101.2, kg, 09/17/19 10:13:00 EST, Dry Weight Start Date: 07/13/20 Status: Ordered omeprazole 20 mg oral enteric coated capsule 1 capsule = 20 mg, By Mouth, Daily, # 90 capsule, 3 Refills, Maintenance, 08/26/20 13:24:00 EST, ECCapsule, [facility], 167.6, cm, 08/19/20 7:30:00 EST, [...]
--- OUTSIDE RECORDS SUMMARY | 2024-02-23 12:24 | XMS_ITS | Continuity of Care Document ---
Author Organization [facility] Sae lt Address [address] [place] [address]- Care Team Providers Care Liquid Natural Gas Plant Operator Name Role Phone Edmond BRANDT, Wesley Kaur Primary Care Physician [phone] [facility] Date(s): 05/06/20 - 06/05/20 [facility] Adult [address] [place] [address]- [place] Allergies, Adverse Reactions, Alerts Substance Reaction [...] (PPV23) (oldterm) 12/01/01 Given 1Result Comment: [07/11/2017] [facility]; 59810-307-54 HIGH DOSE 2Admin Note: H1N1 3Admin Note: [...] 1 Refills, Maintenance, 03/26/20 15:58:00 EDT, [facility], 167.6, cm, 03/10/20 15:20:00 EDT, [...] 06/03/20 14:27:00 EDT, Route to Pharmacy Electronically, [facility], 167.6, cm, 05/14/20 12:44:00 [...]
--- OUTSIDE RECORDS SUMMARY | 2024-02-23 12:24 | XMS_ITS | Continuity of Care Document ---
Author Organization [facility] S[facility] lt Address [address] [place] [address]- Care Team Providers Care Branch Examiner Name Role Phone Edmond BRANDT, Wesley Kaur Primary Care Physician [facility] Date(s): 06/22/20 - 07/22/20 [facility] Adult [address] [place] [address]- [facility] Allergies, Adverse Reactions, Alerts Substance Reaction [...] (oldterm) 12/01/01 Given 1Result Comment: [07/11/2017] [facility]; 47052-558-04 HIGH DOSE 2Admin Note: H1N1 3Admin Note: [...] Refills, Soft Stop, 03/09/20 11:18:00 EDT, [facility], 167.6, cm, 09/19/19 7:55:00 EST, [...] 05/07/20 9:11:00 EDT, Route to Pharmacy Electronically, [facility], 167.6, cm, 05/07/20 8:56:00 EDT, Height, 101.2, kg, 09/17/19 10:13:00 EST,... Start Date: 05/07/20 Status: Ordered fluticasone 50 mcg/inh nasal spray 2 sprays, Nasal, Daily, in each nostril use opposite hnad for each nostril, # 16 Gm, 3 Refills, Maintenance, 01/10/20 8:38:00 EDT, [facility], 2 sprays Nasal Daily,Instr:in each [...] 1 Refills, Maintenance, 07/13/20 16:01:00 EDT, [facility], 167.6, cm, 06/30/20 9:53:00 EDT, Height, 101.2, kg, 09/17/19 10:13:00 EST, Dry Weight Start Date: 07/13/20 Status: Ordered omeprazole 20 mg oral enteric coated capsule 1 capsule = 20 mg, By Mouth, Daily, # 90 capsule, 3 Refills, Maintenance, 08/15/19 10:35:59 EST, ECCapsule, [facility] Start Date: 08/15/19 Stop Date: [...]
--- OUTSIDE RECORDS SUMMARY | 2024-02-23 12:24 | XMS_ITS | Continuity of Care Document ---
Author Organization [facility] Address [address] [place] [address]- Care Team Providers Care Lease Out Man Name Role Phone Edmond BRANDT, Wesley Kaur Primary Care Physician [place] [facility] [facility] [place] [id number] Date(s): 03/24/20 - 04/20/[address] [address]- [facility] Discharge Disposition: A-D/C Home Attending Physician: Meng Betancourt V Admitting Physician: Meng Betancourt V Referring Physician: Meng Betancourt V Allergies, Adverse Reactions, Alerts Substance Reaction Severity [...] (PPV23) (oldterm) 12/01/01 Given 1Result Comment: [07/11/2017] [facility]; 33673-154-16 HIGH DOSE 2Admin Note: H1N1 3Admin Note: recieved elsewhere Medications acetaminophen 325 mg oral tablet 650 mg, By Mouth, Every 6 hours, Refills 0, Maintenance, 09/19/19 11:55:00 EST Start Date: 09/19/19 Status: Ordered atorvastatin 40 mg oral tablet 1 tablet = 40 mg, By Mouth, Daily, # 90 tablet, 1 Refills, Soft Stop, 03/09/20 11:18:00 EDT, [facility], 167.6, cm, 09/19/19 7:55:00 EST, [...] 19:07:00 EST, Route to Pharmacy Electronically, [facility], 167.6, cm, 09/19/19 7:55:00 EST, Height, 101.2, kg, 09/17/19 10:13:00 EST... Start Date: 11/03/19 Status: Ordered fluticasone 50 mcg/inh nasal spray 2 sprays, Nasal, Daily, in each nostril use opposite hnad for each nostril, # 16 Gm, 3 Refills, Maintenance, 01/10/20 8:38:00 EDT, [email or web address], 2 sprays Nasal Daily,Instr:in each [...] tablet, 1 Refills, Maintenance, 03/26/20 15:58:00 EDT, [email or web address], 167.6, cm, 03/10/20 15:20:00 EDT, Height, 101.2, kg, 09/17/1910:13:00 EST, Dry Weight Start Date: 03/26/20 Status: Ordered omeprazole 20 mg oral enteric coated capsule 1 capsule = 20 mg, By Mouth, Daily, # 90 capsule, 3 Refills, Maintenance, 08/15/19 10:35:59 EST, ECCapsule, [email or web address] Start Date: 08/15/19 Stop Date: 08/09/20 Status: Ordered Singulair 10 mg oral tablet 10 mg, 1, tablet, By Mouth, Daily in PM, # 90 tablet, Refills 1, Tot. Refills 1, Maintenance, 12/06/19 10:36:00 EST, Route to Pharmacy Electronically, [email or web address], 167.6, cm, 09/19/19 7:55:00 EST, [...]
--- OUTSIDE RECORDS SUMMARY | 2024-02-23 12:24 | XMS_ITS | Continuity of Care Document ---
Author Organization [facility] Sae lt Address [address] [place] [address]- Care Team Providers Care Trap Setter Name Role Phone Kae CLEANING TEAM MEMBER, Jovana Ghosh Primary Care Physician [facility] Date(s): 09/22/22 - 10/22/22 [facility] Adult [address] [place] [address]- Allergies, Adverse Reactions, Alerts Substance Reaction Severity Status ciprofloxacin diarrhea Active codeine nausea Active baclofen SEVERE GI UPSET Active Macrobid GI upset Active Spiriva 1 Active 1urinary Immunizations Given and Recorded Vaccine Date Status Refusal Reason [id number] 12y+ bivalent booster vax 1 08/12/22 Given [...] [facility][id number] left lower deltoid 2Result Comment: [facility]-[id number] left upper deltoid 3Result Comment: [facility]: [id number] 4Result Comment: [07/11/2017] [facility]; 07017-175-37 HIGH DOSE 5Result Comment: [facility]: [id number] 6Admin Note: H1N1 7Admin Note: recieved elsewhere Medications amLODIPine 5 mg oral tablet 1 tablet, By Mouth, Daily, # 90 tablet, 3 Refills, Maintenance, 07/27/22 11:13:00 EDT, [facility], 167.6, cm, 05/10/22 16:16:00 EDT, Height, 97.8, kg, 04/29/22 14:30:00 EDT, Dry Weight Start Date: 07/27/22 Status: Ordered atorvastatin 40 mg oral tablet 1 tablet, By Mouth, Daily, # 90 tablet, 1 Refills, Maintenance, 08/26/22 9:23:00 EST, [facility], 167.6, cm, 08/12/22 11:12:00 EST, Height, 97.8, kg, 04/29/22 14:30:00 EDT, Dry Weight Start Date: 08/26/22 Status: Ordered betamethasone topical dipropionate 0.05% cream 1 application, Topically, 2 times a day, # 15 Gm, 0 Refills, Maintenance, 09/30/22 15:16:00 EST, Cream, [facility], Partial fill [...] 08/18/22 8:26:00 EST, Route to Pharmacy Electronically, [facility], Partial fill upon patient [...] 1 Refills, Maintenance, 10/10/22 11:08:00 EST, Tablet, [facility] # [facility], Partial fill upon patient [...] Team Personnel Name: Leticia Alcantara RN Position: [facility] Onco RN Member Role: Primary Care Nurse Name: Juliet Hay NP Position: [facility] PCO Associate Professional Member Role: Primary Care Nurse Name: Jovana Pal NP Position: [facility] PCO Associate Professional Member Role: PCP Address: Address: [address] [place] [address]- Name: Michaela Castillo RN Position: S RN Member Role: Primary Care Nurse Name: Stacy Garcia RN Position: S RN Member Role: Primary Care Nurse Name: María Elena Dixon RN Position: S RN Member Role: Primary Care Nurse Care Team Related Persons Name: ISAURO HARKINS Address: [address] [address] Name: AGNIESZKA MAURER Address: [address] [address]
--- OUTSIDE RECORDS SUMMARY | 2024-02-23 12:24 | XMS_ITS | Continuity of Care Document ---
Author Organization [facility] [place] Address [address] [place] [address]- Care Team Providers Care Meat Manager Name Role Phone Edmond BRANDT, Wesley Kaur Primary Care Physician Encounter [facility] Date(s): 10/11/21 - 11/10/21 [facility] [place] [address] [place] [address]- Allergies, Adverse Reactions, Alerts Substance Reaction Severity [...] (PPV23) (oldterm) 12/01/01 Given 1Result Comment: [facility]: [id number] 2Result Comment: [facility]: [id number] 3Result Comment: [07/11/2017] [facility]; 43060-835-93 HIGH DOSE 4Admin Note: H1N1 5Admin Note: recieved elsewhere Medications amLODIPine 5 mg oral tablet 1 tablet = 5 mg, By Mouth, Daily, # 90 tablet, 1 Refills, Maintenance, 06/02/21 17:26:00 EDT, [facility], 167.6, cm, 02/24/21 14:50:00 EDT, Height, 107.9, kg, 02/24/21 13:39:00 EDT, Dry Weight Start Date: 06/02/21 Status: Ordered atorvastatin 40 mg oral tablet 1 tablet, By Mouth, Daily, # 90 tablet, 1 Refills, [facility], 167.6, cm, 08/19/21 11:48:00 EST, [...] 02/22/21 14:32:00 EDT, Route to Pharmacy Electronically, [facility], Partial fill upon patient request [...] tablet, 0 Refills, Maintenance, 09/20/21 11:54:00 EST, [facility], 167.6, cm, 08/19/21 11:48:00 [...]
--- OUTSIDE RECORDS SUMMARY | 2024-02-23 12:24 | XMS_ITS | Continuity of Care Document ---
Author Organization [facility] Trace Sae lt Address [address] [place] [address]- Care Team Providers Care Outside Machinist Helper Name Role Phone Edmond BRANDT, Wesley Kaur Primary Care Physician [facility] Date(s): 05/01/20 - 05/31/20 [facility] [address] [place] [address] Allergies, Adverse Reactions, Alerts Substance Reaction [...] 12/05/07 Give n Pneumococcal Poly (PPV23) (oldterm) 3/2/02 Given 1Result Comment: [07/11/2017] [facility]; 08914-484-48 HIGH DOSE 2Admin Note: H1N1 3Admin Note: [...] 3 Refills, Maintenance, 01/10/20 8:38:00 EDT, [facility], 2 sprays Nasal Daily,Instr:in each [...] 1 Refills, Maintenance, 03/26/20 15:58:00 EDT, [facility], 167.6, cm, 03/10/20 15:20:00 EDT, Height, 101.2, kg, 09/17/1910:13:00 EST, Dry Weight Start Date: 03/26/20 Status: Ordered omeprazole 20 mg oral enteric coated capsule 1 capsule = 20 mg, By Mouth, Daily, # 90 capsule, 3 Refills, Maintenance, 08/15/19 10:35:59 EST, ECCapsule, [facility] Start Date: 08/15/19 Stop Date: 08/09/20 Status: Ordered Singulair 10 mg oral tablet 10 mg, 1, tablet, By Mouth, Daily in PM, # 90 tablet, Refills 1, Tot. Refills 1, Maintenance, 12/06/19 10:36:00 EST, Route to Pharmacy Electronically, [facility], 167.6, cm, 09/19/19 7:55:00 EST, [...]
--- OUTSIDE RECORDS SUMMARY | 2024-02-23 12:24 | XMS_ITS | Continuity of Care Document ---
Author Organization [facility] Address [address] [place] [address]- Care Team Providers Care Manufacturing Engineer Machining Name Role Phone Edmond BRANDT, Wesley Kaur Primary Care Physician [phone] [facility] Date(s): 05/15/20 - 06/14/20 [facility] [address] [place] [address]- [facility] Allergies, Adverse Reactions, Alerts Substance [...] [07/11/2017] [facility] [id number] HIGH DOSE 2Admin Note: H1N1 3Admin Note: [...] 1 Refills, Maintenance, 03/26/20 15:58:00 EDT, [facility], 167.6, cm, 03/10/20 15:20:00 EDT, [...] 06/03/20 14:27:00 EDT, Route to Pharmacy Electronically, [facility], 167.6, cm, 05/14/20 12:44:00 [...]
--- OUTSIDE RECORDS SUMMARY | 2024-02-23 12:24 | XMS_ITS | Continuity of Care Document ---
Author Organization [facility] Address [address] [place] [address]- Care Team Providers Care Optical Coating Technician Name Role Phone Edmond BRANDT, Wesley Kaur Primary Care Physician [facility] Date(s): 08/15/21 - 09/14/21 [facility] Adult [address] [place] [address]- Allergies, Adverse Reactions, Alerts Substance Reaction Severity [...] (PPV23) (oldterm) 12/01/01 Given 1Result Comment: [facility]: [id number] 2Result Comment: [facility]: [id number] 3Result Comment: [07/11/2017] [facility]; 56730-736-36 HIGH DOSE 4Admin Note: H1N1 5Admin Note: [...] 14:32:00 EDT, Route to Pharmacy Electronically, [facility], Partial fill upon patient request [...] 1 Refills, Maintenance, 07/26/21 14:47:00 EDT, [facility], 167.6, cm, 07/26/21 14:38:00 EDT, [...]
--- OUTSIDE RECORDS SUMMARY | 2024-02-23 12:24 | XMS_ITS | Continuity of Care Document ---
Author Organization [facility] S[facility] Address [address] [place] [address]- Care Team Providers Care Supervisor Concrete Block Plant Name Role Phone Edmond BRANDT, Wesley Kaur Primary Care Physician [phone] Encounter [facility] Date(s): 01/31/22 - 03/02/22 [facility] Adult [address] [place] [address]- Allergies, Adverse Reactions, Alerts Substance Reaction Severity [...] 1Result Comment: [facility]: [id number] 2Result Comment: [facility]: 60320-518-31 3Result Comment: [07/11/2017] [facility]; 92717-721-37 HIGH DOSE 4Admin Note: H1N1 5Admin Note: [...]
--- OUTSIDE RECORDS SUMMARY | 2024-02-23 12:24 | XMS_ITS | Continuity of Care Document ---
Author Organization [facility] Address [address] [place] [address]- Care Team Providers Care Air Twister Winder Name Role Phone Wesley Pruitt MD Primary Care Physician [place] [facility] [place]): [place]05[place]21 - 08/12/21 [facility] Adult [address] [place] [address]- Encounter Diagnosis Female pelvic pain(Discharge Diagnosis) - 08/05/21 Attending Physician: Wesley Pruitt MD Allergies, Adverse [...] Given 1Result Comment: [facility]: [id number] 2Result Comment: [facility]: 66077-571-39 3Result Comment: [07/11/2017] [facility]; 50182-141-28 HIGH DOSE 4Admin Note: H1N1 5Admin Note: [...] Refills, Soft Stop, 03/04/21 12:12:00 EDT, [facility], 167.6, cm, 02/24/21 14:50:00 EDT, [...] 14:32:00 EDT, Route to Pharmacy Electronically, [facility], Partial fill upon patient request if the prescription is for a schedule I... Start Date: 02/22/21 Status: Ordered fluticasone 50 mcg/inh nasal spray 2 sprays, Nasal, Daily, in each nostril use opposite hnad for each nostril, # 16 Gm, 1 Refills, Maintenance, 01/09/21 10:28:00 EDT, [facility], 2 sprays Nasal Daily,Instr:in each [...] 1 Refills, Maintenance, 07/26/21 14:47:00 EDT, [facility], 167.6, cm, 07/26/21 14:38:00 EDT, [...] 08/05/21 14:52:00 EDT, Route to Pharmacy Electronically, [facility], Partial fill upon patient request if the prescription is for a schedule II opioid . Start Date: 08/05/21 Status: Ordered Voltaren 1% topical gel = 2 Gm, Topically, 4 times a day, # 100 Gm, 0 Refills, Maintenance, 05/07/20 9:13:00 EDT, Gel, [facility] # [facility], 2 Gm Topically 4 [...] Dates Health Status Cl inical Service Informant Female pelvic pain Discharge Diagnosis 08/05/21 Procedures Procedure Date Related Diagnosis Body Site Status Electrocardiogram nsr 08/05/21 Com pleted Vital Signs Most recent to oldest [Reference Range]: 1 2 3 Height 167.6 cm (08/05/21 2:43 PM) 167.6 cm (08/05/21 2:18 PM) 167.6 cm (08/05/21 2:09 PM) Weight 105.3 kg (08/05/21 2:09 PM) Oxygen Saturation [94-100 %] 98 % (08/05/21 2:09 PM) Pulse Rate [55-90 bpm] 88 bpm (08/05/21 2:09 PM) Body Mass Index [18.5-24.99] 37.49 *>HHI* (08/05/21 2:09 PM) Blood Pressure [90-138/55-84 mm Hg] 174/90mm Hg *H* (08/05/21 2:43 PM) 156/76mm Hg *H* (08/05/21 2:18 PM) 154/84mm Hg *H* (08/05/21 2:09 PM) Temperature [96.8-100.4 DegF] 98.3 DegF (08/05/21 2:09 PM) Mode of Delivery (Oxygen) Room air (08/05/21 2:09 PM) Blood pressure sites Arm, left (08/05/21 2:43 PM) Arm, right (08/05/21 2:18 PM) Arm, left (08/05/21 2:09 PM) Temperature Route Oral (08/05/21 2:09 PM) Weight Obtained Via Standing scale (08/05/21 2:09 PM) Social History Social History Type Response Smoking Status Never smoker entered on: 10/09/13 Sex
--- OUTSIDE RECORDS SUMMARY | 2024-02-23 12:25 | XMS_ITS | Continuity of Care Document ---
Author Organization [facility] Sae lt Address [address] [place] [address]- Care Team Providers Care Police [employer] Instructor Name Role Phone Kae WASHER OPERATOR, Jovana Ghosh Primary Care Physician [facility] 07/[facility]/22 - 08/26/22 [facility] Adult [address] [place] [address]- Allergies, Adverse Reactions, Alerts Substance Reaction Severity Status ciprofloxacin diarrhea Active codeine nausea Active baclofen SEVERE GI UPSET Active Macrobid GI upset Active Spiriva 1 Active 1urinary Immunizations Given and Recorded Vaccine Date Status Refusal Reason [id number] 12y+ bivalent booster vax 1 08/12/22 Given [...] Given 1Result Comment: [facility]-[id number] left lower deltoid 2Result Comment: [facility]-[id number] left upper deltoid 3Result Comment: [facility]: 15145-226-91 4Result Comment: [07/11/2017] [facility]; 20892-505-53 HIGH DOSE 5Result Comment: [facility]: [id number] 6Admin Note: H1N1 7Admin Note: recieved elsewhere Medications amLODIPine 5 mg oral tablet 1 tablet, By Mouth, Daily, # 90 tablet, 3 Refills, Maintenance, 07/27/22 11:13:00 EDT, [facility], 167.6, cm, 05/10/22 16:16:00 EDT, Height, 97.8, kg, 04/29/22 14:30:00 EDT, Dry Weight Start Date: 07/27/22 Status: Ordered atorvastatin 40 mg oral tablet 1 tablet, By Mouth, Daily, # 90 tablet, 1 Refills, Maintenance, 08/26/22 9:23:00 EST, [facility], 167.6, cm, 08/12/22 11:12:00 EST, Height, 97.8, kg, 04/29/22 14:30:00 EDT, Dry Weight Start Date: 08/26/22 Status: Ordered betamethasone topical dipropionate 0.05% cream 1 application, Topically, 2 times a day, # 15 Gm, 0 Refills, Maintenance, 05/10/22 16:48:00 EDT, Cream, [facility], Partial fill [...] 8:06:00 EDT, Route to Pharmacy Electronically, [facility], 167.6, cm, 03/25/22 7:30:... Start Date: 03/25/22 Status: Ordered FLUoxetine 20 mg oral capsule 20 mg, 1, capsule, By Mouth, Daily, # 90 capsule, Refills 3, Tot. Refills 3, Maintenance, 08/18/22 8:26:00 EST, Route to Pharmacy Electronically, [facility] # [facility], Partial fill upon patient [...] 1 Refills, Maintenance, 08/12/22 11:44:00 EST, Tablet, [facility] # [facility], Partial fill upon patient [...] Name: Leticia Alcantara RN Position: [facility] Onco RN Member Role: Primary Care Nurse Name: Juliet Hay NP Position: [facility] Associate Professional Member Role: Primary Care Nurse Name: Jovana Pal NP Position: [facility] Associate Professional Member Role: PCP Address: Address: [address] [place] [address]- Name: Michaela Castillo RN Position: S RN Member Role: Primary Care Nurse Name: Stacy Garcia RN Position: S RN Member Role: Primary Care Nurse Name: María Elena Dixon RN Position: S RN Member Role: Primary Care Nurse Care Team Related Persons Name: ISAURO HARKINS Address: [address] [address] Name: AGNIESZKA MAURER Address: [address] [address]
--- OUTSIDE RECORDS SUMMARY | 2024-02-23 12:25 | XMS_ITS | Continuity of Care Document ---
Author Organization [facility] Sae lt Address [address] [place] [address]- Care Team Providers Care Assembler Hydraulic Backhoe Name Role Phone Kae BOTTLE DEALER, Jovana Ghosh Primary Care Physician [phone] [facility] 02/14/23 - 03/16/23 [facility] Adult [address] [place] [address]- Allergies, Adverse Reactions, Alerts Substance Reaction Severity Status ciprofloxacin diarrhea Active codeine nausea Active Spiriva 1 Active baclofen SEVERE GI UPSET Active Macrobid GI upset Active 1urinary Immunizations Given and Recorded Vaccine Date Status Refusal Reason pneumococcal 20-valent conjugate vaccine 1 02/13/23 Given [id number] 12y+ bivalent booster vax 2 08/12/22 Given [...] 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 Given 1Result Comment: [id number] 2Result Comment: [facility]-[id number] left lower deltoid 3Result Comment: [facility]-[id number] left upper deltoid 4Result Comment: [facility]: [id number] 5Result Comment: [07/11/2017] [facility]; 44695-694-77 HIGH DOSE 6Result Comment: [facility]: [id number] 7Admin Note: H1N1 8Admin Note: recieved elsewhere Medications amLODIPine 5 mg oral tablet 1 tablet, By Mouth, Daily, # 90 tablet, 3 Refills, Maintenance, 07/27/22 11:13:00 EDT, [facility], 167.6, cm, 05/10/22 16:16:00 EDT, Height, 97.8, kg, 04/29/22 14:30:00 EDT, Dry Weight Start Date: 07/27/22 Status: Ordered atorvastatin 40 mg oral tablet 1 tablet, By Mouth, Daily, # 90 tablet, 1 Refills, Maintenance, 02/22/23 18:23:00 EDT, [facility], 167.6, cm, 02/13/23 15:04:00 EDT, [...] Team Personnel Name: Juliet Hay NP Position: [facility] Associate Professional Member Role: Primary Care Nurse Name: Jovana Pal NP Position: [facility] Associate Professional Member Role: PCP Address: Address: [address] [place] [address]- Name: Michaela Castillo RN Position: [facility] RN Member Role: Primary Care Nurse Name: Leticia Barth RN Position: [facility] Onco RN Member Role: Primary Care Nurse Name: María Elena Dixon RN Position: [facility] RN Member Role: Primary Care Nurse Care Team Related Persons Name: TORIN ISAURO Address: [address] [address] Name: AGNIESZKA MAURER Address: [address] [address]
--- OUTSIDE RECORDS SUMMARY | 2024-02-23 12:25 | XMS_ITS | Continuity of Care Document ---
Author Organization [facility] Sae lt Address [address] [place] [address]- Care Team Providers Care Pathology Tech Name Role Phone Kae CUSTOMER ACQUISITION SPECIALIST, Jovana Ghosh Primary Care Physician [phone] [facility]s): 05/22/23 - 06/21/23 [facility] Adult [address] [place] [address]- Allergies, Adverse Reactions, Alerts Substance Reaction Severity Status ciprofloxacin diarrhea Active codeine nausea Active baclofen SEVERE GI UPSET Active Macrobid GI upset Active Spiriva 1 Active 1urinary Immunizations Given and Recorded Vaccine Date Status Refusal Reason pneumococcal 20-valent conjugate vaccine 1 02/13/23 Given [id number] 12y+ bivalent booster vax 2 08/12/22 Given [...] 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 Given 1Result Comment: [id number] 2Result Comment: [facility]-[id number] left lower deltoid 3Result Comment: [facility]-[id number] left upper deltoid 4Result Comment: [facility]: [id number] 5Result Comment: [07/11/2017] [facility]; 29125-546-15 HIGH DOSE 6Result Comment: [facility]: [id number] 7Admin Note: H1N1 8Admin Note: recieved elsewhere Medications amLODIPine 5 mg oral tablet 1 tablet, By Mouth, Daily, # 90 tablet, 3 Refills, Maintenance, 07/27/22 11:13:00 EDT, [facility], 167.6, cm, 05/10/22 16:16:00 EDT, Height, 97.8, kg, 04/29/22 14:30:00 EDT, Dry Weight Start Date: 07/27/22 Status: Ordered atorvastatin 40 mg oral tablet 1 tablet, By Mouth, Daily, # 90 tablet, 1 Refills, Maintenance, 02/22/23 18:23:00 EDT, [facility], 167.6, cm, 02/13/23 15:04:00 EDT, [...] 05/17/23 13:17:00 EDT, Route to Pharmacy Electronically, [facility], 167.6, cm, 03/23/23 10:29:00 EDT, [...] 06/06/23 7:52:00 EDT, Route to Pharmacy Electronically, [facility], 167.6, cm, 03/23/23 [...] 14:31:00 EST, Route to Pharmacy Electronically, [facility], Partial fill upon patient request [...] Personnel Name: Satnam BUNDY, Juliet Snyder Position: [facility] Associate Professional Member Role: Primary Care Nurse Name: Jovana Pal NP Position: [facility] Associate Professional Member Role: PCP Address: Address: [address] [place] [address]- Name: Michaela Castillo RN Position: S RN Member Role: Primary Care Nurse Name: Lary STRATTON, Leticia Barrientos Position: [facility] Onco RN Member Role: Primary Care Nurse Name: Stacy Garcia RN Position: [facility] RN Member Role: Primary Care Nurse Name: María Elena Dixon RN Position: S RN Member Role: Primary Care Nurse Care Team Related Persons Name: ISAURO HARKINS Address: [address] [address] Name: AGNIESZKA MAURER Address: [address] [address]
--- OUTSIDE RECORDS SUMMARY | 2024-02-23 12:25 | XMS_ITS | Continuity of Care Document ---
Author Organization [facility] Sae lt Address [address] [place] [address]- Care Team Providers Care Toy Parts Former Supervisor Name Role Phone Edmond BRANDT, Wesley Kaur Primary Care Physician [facility] 12[facility]01/20 - 12/31/20 [facility] Adult [address] [place] [address]- Allergies, Adverse Reactions, Alerts Substance Reaction Severity [...] [07/11/2017] [facility]NOTE 2]; 15746-918-90 HIGH DOSE 2Admin Note: H1N1 3Admin Note: recieved elsewhere Medications acetaminophen 325 mg oral tablet 650 mg, By Mouth, Every 6 hours, Refills 0, Maintenance, 09/19/19 11:55:00 EST Start Date: 09/19/19 Status: Ordered amLODIPine 5 mg oral tablet 5 mg, 1, tablet, By Mouth, Daily, # 90 tablet, Refills 3, Tot. Refills 3, Maintenance, 06/29/20 14:01:00 EDT, Route to Pharmacy Electronically, [facility], 167.6, cm, 06/16/20 10:40:00 EDT, Height, 101.2, kg, 09/17/19 10:13:00 EST,... Start Date: 06/29/20 Status: Ordered atorvastatin 40 mg oral tablet 1 tablet = 40 mg, By Mouth, Daily, # 90 tablet, 1 Refills, Soft Stop, 09/07/20 14:24:00 EST, [facility], 167.6, cm, 08/19/20 7:30:00 EST, [...] 1 Refills, Maintenance, 10/23/20 9:37:00 EST, [facility], 2 sprays Nasal Daily,Instr:in each [...] Acute 01/06/21 14:01:00 EDT, 12/07/20 14:01:00 EST, [facility], early fill, 167.6, cm, 12/07/20 13:11:00 EST, Height, 101.2, kg, 09/17/19 10:13:00 EST, Dry We... Start Date: 12/07/20 Stop Date: 01/06/21 Status: Ordered LORazepam 0.5 mg oral tablet 1 tablet = 0.5 mg, By Mouth, Daily at bedtime, # 90 tablet, 1 Refills, Maintenance, 07/13/20 16:01:00 EDT, [facility], 167.6, cm, 06/30/20 9:53:00 EDT, [...]
--- OUTSIDE RECORDS SUMMARY | 2024-02-23 12:25 | XMS_ITS | Continuity of Care Document ---
Author Organization [facility] Address [address] [place] [address]- Care Team Providers Care Early Childhood Educator Aide Name Role Phone Edmond BRANDT, Wesley Kaur Primary Care Physician [phone] [facility] 02[facility]17[facility]22 - 03/19/22 [facility] [address] [place] [address] Attending Physician: Rosamaria Kitchen Admitting Physician: AdmRosamaria hernandez Referring Physician: Admtr, Ar8 Allergies, Adverse Reactions, Alerts Substance Reaction Severity [...] 12/01/01 Given 1Result Comment: [facility]: [id number] 2Result Comment: [facility]: [id number] 3Result Comment: [07/11/2017] [facility]; 71665-418-43 HIGH DOSE 4Admin Note: H1N1 5Admin Note: [...]
--- OUTSIDE RECORDS SUMMARY | 2024-02-23 12:25 | XMS_ITS | Continuity of Care Document ---
Author Organization [facility] Sae lt Address [address] [place] [address]- Care Team Providers Care Organic Gardening Teacher Name Role Phone Wesley Pruitt MD Primary Care Physician [phone] Encounter [facility] Date(s): 10/05/21 - 10/12/21 [facility] Adult [address] [place] [address]- Encounter Diagnosis Mild major depression(Discharge Diagnosis) - 10/05/21 Attending Physician: Wesley Pruitt MD Allergies, Adverse [...] [facility]: [id number] 2Result Comment: [facility]: 71670-881-71 3Result Comment: [07/11/2017] [facility]; 91751-271-34 HIGH DOSE 4Admin Note: H1N1 5Admin Note: [...] Tot. Refills 0, Maintenance, use with MDI, 02/12/14 14:49:18, Compound Start Date: 11/13/13 Status: Ordered [...] Effective Dates Health Status Clinical Service Informant Mild major depression Discharge Diagnosis 10/05/21 Vital Signs Most recent to oldest [Reference Range]: 1 Height 167.6 cm (10/05/21 4:00 PM) Social History Social History Type Response Smoking Status Never smoker entered on: 10/09/13 Sex
--- OUTSIDE RECORDS SUMMARY | 2024-02-23 12:25 | XMS_ITS | Continuity of Care Document ---
Author Organization [facility] Address [address] [address]- Care Team Providers Care Student Nurse Name Role Phone Edmond BRANDT, Wesley Kaur Primary Care Physician [phone] Encounter [facility] Date(s): 08/30/21 - 09/29/21 [facility] [address] [address]- Attending Physician: Rosamaria Kitchen Admitting Physician: Rosamaria [...] 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 Given 1Result Comment: [facility]: [id number] 2Result Comment: [facility]: 56508-799-79 3Result Comment: [07/11/2017] [facility]; 12653-682-81 HIGH DOSE 4Admin Note: H1N1 5Admin Note: [...] Refills, Maintenance, 09/20/21 11:54:00 EST, [facility], 167.6, cm, [...]
--- OUTSIDE RECORDS SUMMARY | 2024-02-23 12:25 | XMS_ITS | Continuity of Care Document ---
Author Organization [facility] Sae lt Address [address] [place] [address]- Care Team Providers Care Director Of Business Continuity Name Role Phone Edmond BRANDT, Wesley Kaur Primary Care Physician Encounter [facility] Date(s): 09/20/21 - 10/20/21 [facility] Adult [address] [place] [address]- Allergies, Adverse Reactions, Alerts Substance Reaction Severity [...] Given 1Result Comment: [facility]: [id number] 2Result Comment: [facility]: 61932-804-64 3Result Comment: [07/11/2017] [facility]; 64519-033-94 HIGH DOSE 4Admin Note: H1N1 5Admin Note: recieved elsewhere Medications amLODIPine 5 mg oral tablet 1 tablet = 5 mg, By Mouth, Daily, # 90 tablet, 1 Refills, Maintenance, 06/02/21 17:26:00 EDT, [facility], 167.6, cm, 02/24/21 14:50:00 EDT, Height, 107.9, kg, 02/24/21 13:39:00 EDT, Dry Weight Start Date: 06/02/21 Status: Ordered atorvastatin 40 mg oral tablet 1 tablet, By Mouth, Daily, # 90 tablet, 1 Refills, [facility], 167.6, cm, 08/19/21 11:48:00 EST, [...] 02/22/21 14:32:00 EDT, Route to Pharmacy Electronically, [facility], Partial fill upon patient request [...] tablet, 0 Refills, Maintenance, 09/20/21 11:54:00 EST, [facility], 167.6, cm, 08/19/21 11:48:00 [...] Diverticulosis, sigmoid(Confirmed) 09/12/08 Active Encounter for monitoring barbar g-term proton pump inhibitor therapy(Confirmed) Active [facility] [...]
--- OUTSIDE RECORDS SUMMARY | 2024-02-23 12:25 | XMS_ITS | Continuity of Care Document ---
Author Organization [facility] [place] Address [address] [place] [address]- Care Team Providers Care Italian Teacher Name Role Phone Edmond BRANDT, Wesley Kaur Primary Care Physician Encounter [facility] Date(s): 02/08/22 - 03/10/22 [facility] [place] [address] [place] [address]- Allergies, Adverse Reactions, Alerts Substance Reaction Severity [...] 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 Given 1Result Comment: [facility]: [id number] 2Result Comment: [facility]: 78141-178-53 3Result Comment: [07/11/2017] [facility]; 53332-809-34 HIGH DOSE 4Admin Note: H1N1 5Admin Note: [...] Active Dysplastic toenail rt bidg 2 0[facility](Confirmed) Active Diverticulosis, sigmoid(Confirmed) 09/12/08 Active Encounter [...]
--- OUTSIDE RECORDS SUMMARY | 2024-02-23 12:25 | XMS_ITS | Continuity of Care Document ---
Author Organization [facility] Sae lt Address [address] [place] [address]- Care Team Providers Care Hat Blocking Machine Operator Name Role Phone Kae SUPERVISOR PAINT, Jovana Ghosh Primary Care Physician [facility]s): 05/04/23 - 06/03/23 [facility] Adult [address] [place] [address]- Allergies, Adverse Reactions, Alerts Substance Reaction Severity Status ciprofloxacin diarrhea Active codeine nausea Active baclofen SEVERE GI UPSET Active Spiriva 1 Active Macrobid GI upset Active 1urinary Immunizations Given and Recorded Vaccine Date Status Refusal Reason pneumococcal 20-valent conjugate vaccine 1 02/13/23 Given [id number] 12y+ bivalent booster vax 2 08/12/22 Given [...] 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 Given 1Result Comment: [id number] 2Result Comment: [facility]-[id number] left lower deltoid 3Result Comment: [facility]-[id number] left upper deltoid 4Result Comment: [facility]: 85180-233-78 5Result Comment: [07/11/2017] [facility]; 51380-956-40 HIGH DOSE 6Result Comment: [facility]: [id number] 7Admin Note: H1N1 8Admin Note: recieved elsewhere Medications amLODIPine 5 mg oral tablet 1 tablet, By Mouth, Daily, # 90 tablet, 3 Refills, Maintenance, 07/27/22 11:13:00 EDT, [facility], 167.6, cm, 05/10/22 16:16:00 EDT, Height, 97.8, kg, 04/29/22 14:30:00 EDT, Dry Weight Start Date: 07/27/22 Status: Ordered atorvastatin 40 mg oral tablet 1 tablet, By Mouth, Daily, # 90 tablet, 1 Refills, Maintenance, 02/22/23 18:23:00 EDT, [facility], 167.6, cm, 02/13/23 15:04:00 EDT, [...] 13:17:00 EDT, Route to Pharmacy Electronically, [facility], 167.6, cm, 03/23/23 10:29:00 EDT, [...] Team Personnel Name: Juliet Hay NP Position: [facility] Associate Professional Member Role: Primary Care Nurse Name: Jovana Pal NP Position: [facility] Associate Professional Member Role: PCP Address: Address: [address] [place] [address]- Name: Michaela Castillo RN Position: [facility] RN Member Role: Primary Care Nurse Name: Leticia Barth RN Position: [facility] Onco RN Member Role: Primary Care Nurse Name: Stacy Garcia RN Position: [facility] SN RN Member Role: Primary Care Nurse Name: María Elena Dixon RN Position: [facility] RN Member Role: Primary Care Nurse Care Team Related Persons Name: ISAURO HARKINS Address: [address] [address] Name: AGNIESZKA MAURER Address: [address] [address]
--- OUTSIDE RECORDS SUMMARY | 2024-02-23 12:25 | XMS_ITS | Continuity of Care Document ---
Author Organization [facility] Address [address] [place] [address]- Care Team Providers Care Supervisor Special Education Name Role Phone Edmond BRANDT, Wesley Kaur Primary Care Physician [facility] 06[facility]22[facility]20 - 07/22/20 [facility] Adult [address] [place] [address]- [facility] Allergies, Adverse Reactions, Alerts Substance Reaction Severity [...] Given 1Result Comment: [07/11/2017] [facility]; [id number] HIGH DOSE 2Admin Note: H1N1 3Admin Note: [...] Refills, Soft Stop, 03/09/20 11:18:00 EDT, [facility], 167.6, cm, 09/19/19 7:55:00 EST, [...] 05/07/20 9:11:00 EDT, Route to Pharmacy Electronically, [facility], 167.6, cm, 05/07/20 8:56:00 EDT, Height, 101.2, kg, 09/17/19 10:13:00 EST,... Start Date: 05/07/20 Status: Ordered fluticasone 50 mcg/inh nasal spray 2 sprays, Nasal, Daily, in each nostril use opposite hnad for each nostril, # 16 Gm, 3 Refills, Maintenance, 01/10/20 8:38:00 EDT, [facility], 2 sprays Nasal Daily,Instr:in each [...] 1 Refills, Maintenance, 07/13/20 16:01:00 EDT, [facility], 167.6, cm, 06/30/20 9:53:00 EDT, Height, 101.2, kg, 09/17/19 10:13:00 EST, Dry Weight Start Date: 07/13/20 Status: Ordered omeprazole 20 mg oral enteric coated capsule 1 capsule = 20 mg, By Mouth, Daily, # 90 capsule, 3 Refills, Maintenance, 08/15/19 10:35:59 EST, ECCaps[facility], [facility] Start Date: 08/15/19 Stop Date: [...]
--- OUTSIDE RECORDS SUMMARY | 2024-02-23 12:25 | XMS_ITS | Continuity of Care Document ---
Author Organization [facility] S[facility] Address [address] [place] [address]- Care Team Providers Care Orthodontic Assistant Name Role Phone Kae DIGESTER CAPPER, Jovana Ghosh Primary Care Physician [facility]s): 03/15/23 - 04/14/23 [facility] Adult [address] [place] [address]- Allergies, Adverse Reactions, Alerts Substance Reaction Severity Status ciprofloxacin diarrhea Active codeine nausea Active baclofen SEVERE GI UPSET Active Macrobid GI upset Active Spiriva 1 Active 1urinary Immunizations Given and Recorded Vaccine Date Status Refusal Reason pneumococcal 20-valent conjugate vaccine 1 02/13/23 Given [id number] 12y+ bivalent booster vax 2 08/12/22 Given [...] 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 Given 1Result Comment: [id number] 2Result Comment: [facility]-[id number] left lower deltoid 3Result Comment: [facility]-[id number] left upper deltoid 4Result Comment: [facility]: 24532-103-86 5Result Comment: [07/11/2017] [facility]; 56188-554-47 HIGH DOSE 6Result Comment: [facility]: [id number] 7Admin Note: H1N1 8Admin Note: recieved elsewhere Medications amLODIPine 5 mg oral tablet 1 tablet, By Mouth, Daily, # 90 tablet, 3 Refills, Maintenance, 07/27/22 11:13:00 EDT, [facility], 167.6, cm, 05/10/22 16:16:00 EDT, Height, 97.8, kg, 04/29/22 14:30:00 EDT, Dry Weight Start Date: 07/27/22 Status: Ordered atorvastatin 40 mg oral tablet 1 tablet, By Mouth, Daily, # 90 tablet, 1 Refills, Maintenance, 02/22/23 18:23:00 EDT, [facility], 167.6, cm, 02/13/23 15:04:00 EDT, [...] Team Personnel Name: Juliet Hay NP Position: [facility] Associate Professional Member Role: Primary Care Nurse Name: Jovana Pal NP Position: [facility] Associate Professional Member Role: PCP Address: Address: [address] [place] [address]- Name: Michaela Castillo RN Position: S RN Member Role: Primary Care Nurse Name: Leticia Barth RN Position: [facility] Onco RN Member Role: Primary Care Nurse Name: María Elena Dixon RN Position: S RN Member Role: Primary Care Nurse Care Team Related Persons Name: ISAURO HARKINS Address: [address] [address] Name: AGNIESZKA MAURER Address: [address] [address]
--- OUTSIDE RECORDS SUMMARY | 2024-02-23 12:25 | XMS_ITS | Continuity of Care Document ---
Author Organization [facility] Address [address] [address]- Care Team Providers Care Inventory Control Specialist Name Role Phone Edmond BRANDT, Wesley Kaur Primary Care Physician Encounter [facility] AC[facility] R [id number] Date(s): 08/05/21 - 09/29/21 [facility] [address] [address]- Attending Physician: Wesley Pruitt MD Admitting Physician: [...] 12/01/01 Given 1Result Comment: [facility]: [id number] 2Result Comment: [facility]: [id number] 3Result Comment: [07/11/2017] [facility]; 74423-127-48 HIGH DOSE 4Admin Note: H1N1 5Admin Note: [...] Refills, Maintenance, 09/20/21 11:54:00 EST, [facility], 167.6, cm, 08/19/21 11:48:00 EST, Height, 107.9, kg, 02/24/21 13:39:00 EDT, Dry Weight Start Date: 09/20/21 Status: Ordered omeprazole 20 mg oral enteric coated capsule 1 capsule, By Mouth, Daily, # 90 capsule, 0 Refills, [facility], 167.6, cm, 08/19/21 11:48:00 EST, [...]
--- OUTSIDE RECORDS SUMMARY | 2024-02-23 12:25 | XMS_ITS | Continuity of Care Document ---
Author Organization [facility] Address [address] [place] [address]- Care Team Providers Care Regenerator Operator Name Role Phone Edmond BRANDT, Wesley Kaur Primary Care Physician [facility] Date[facility]): 08/20/21 - 09/19/21 [facility] [place] [address] [place] [address]- Allergies, Adverse Reactions, Alerts Substance Reaction Severity [...] 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 Given 1Result Comment: [facility]: [id number] 2Result Comment: [facility]: 02476-516-30 3Result Comment: [07/11/2017] [facility]; 13841-768-29 HIGH DOSE 4Admin Note: H1N1 5Admin Note: [...] 14:32:00 EDT, Route to Pharmacy Electronically, [facility], Partial fill upon patient request [...] 1 Refills, Maintenance, 07/26/21 14:47:00 EDT, [facility], 167.6, cm, 07/26/21 14:38:00 EDT, [...]
--- OUTSIDE RECORDS SUMMARY | 2024-02-23 12:25 | XMS_ITS | Continuity of Care Document ---
Author Organization [facility] Address [address] [place] [address]- Care Team Providers Care Asbestos Remover Name Role Phone Edmond BRANDT, Wesley Kaur Primary Care Physician En[facility] Date(s): 11/12/19 - 11/22/[address] [address] [facility] Attending Physician: Rosamaria Kitchen Admitting Physician: Rosamaria [...] Comment: [07/11/2017] [facility]; 93635-316-33 HIGH DOSE 2Admin Note: H1N1 3Admin Note: [...] 03/25/19 9:07:52 EDT, Route to Pharmacy Electronically, [id number], [facility] Start Date: 03/25/19 [...] asthma. 7had EGD 8EGD pending 9seeing DR estraad.workup 10advised pre diabetic increased risk diabetes 11exercises 12rx Social History Social History Type Response Smoking Status Never smoker entered on: 10/09/13 Sex
--- OUTSIDE RECORDS SUMMARY | 2024-02-23 12:25 | XMS_ITS | Continuity of Care Document ---
Author Organization [facility] Address [address] [place] [address]- Care Team Providers Care Gambling Monitor Name Role Phone Kae Jovana BUNDY Primary Care Physician [facility] Date[facility]s): 01/12/24 - 02/11/24 [facility] [address] [place] [address] [facility] Allergies, Adverse Reactions, Alerts Substance Reaction [...] pneumococcal 20-valent conjugate vaccine 5 02/13/23 Given [id number] 12y+ bivalent booster vax 6 08/12/22 Given [...] 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 Given 1Result Comment: [id number] 2Result Comment: [facility]-[id number] left upper deltoid 3Result Comment: [facility]: [id number] 4Result Comment: [07/11/2017] [facility]; 33107-003-76 HIGH DOSE 5Result Comment: [id number] 6Result Comment: [facility]-[id number] left lower deltoid 7Result Comment: [facility]: [id number] 8Admin Note: H1N1 9Admin Note: recieved elsewhere [...] 02/02/24 14:30:00 EDT, Route to Pharmacy Electronically, [facility], 167.6, cm, 02/02/24 13:57:00EDT, Height, 97.8, kg, 04/29/22 14:30:00 EDT, Dry W... Start Date: 02/02/24 Status: Ordered fluticasone 50 mcg/inh nasal spray 2 sprays, Nasal, Daily, in each nostril use opposite hnad for each nostril, # 16 Gm, 1 Refills, Maintenance, 10/28/21 15:32:00 EST, [facility], 2 sprays Nasal Daily,Instr:in each [...] Associate Professional Member Role: PCP Address: Address: [address] [place] [address]- Name: Michaela Castillo RN Position: [facility] [...] Related Persons Name: ISAURO HARKINS Address: [address] [address] Name: AGNIESZKA MAURER Address: [address] [address]
--- OUTSIDE RECORDS SUMMARY | 2024-02-23 12:25 | XMS_ITS | Continuity of Care Document ---
Author Organization [facility] Address [address] [place] [address]- Care Team Providers Care Scheduler Conveyor Name Role Phone Edmond BRANDT, Wesley Kaur Primary Care Physician [phone] [facility] Date(s): 05/02/22 - 06/01/22 [facility] [address] [place] [address] Allergies, Adverse Reactions, Alerts Substance Reaction [...] 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 Given 1Result Comment: [facility]: [id number] 2Result Comment: [facility]: 86464-649-98 3Result Comment: [07/11/2017] [facility]; 71153-488-11 HIGH DOSE 4Admin Note: H1N1 5Admin Note: recieved elsewhere Medications amLODIPine 5 mg oral tablet 1 tablet, By Mouth, Daily, # 90 tablet, 1 Refills, [facility], 167.6, cm, 11/23/21 16:35:00 EST, Height, 107.9, kg, 02/24/21 13:39:00 EDT, Dry Weight Start Date: 11/29/21 Status: Ordered atorvastatin 40 mg oral tablet 1 tablet, By Mouth, Daily, # 90 tablet, 1 Refills, [facility], 167.6, cm, 02/04/22 10:24:00 EDT, [...] 03/25/22 8:06:00 EDT, Route to Pharmacy Electronically, [facility] # [facility], 167.6, cm, 03/25/22 7:30:... [...] Personnel Name: Edmond BRANDT, Wesley Kaur Address: [address] [place] [address]-
--- OUTSIDE RECORDS SUMMARY | 2024-02-23 12:25 | XMS_ITS | Continuity of Care Document ---
Author Organization [facility] Address [address] [place] [address]- Care Team Providers Care Sheet Metal Operator Name Role Phone Kae PLATFORM ATTENDANT, Jovana Ghosh Primary Care Physician [phone] [facility] Date(s): 09/30/22 - 10/30/22 [facility] [address] [place] [address]- Encounter Diagnosis Rash of back(Discharge Diagnosis) - 09/30/22 Allergies, Adverse Reactions, Alerts Substance Reaction Severity Status ciprofloxacin diarrhea Active codeine nausea Active baclofen SEVERE GI UPSET Active Macrobid GI upset Active Spiriva 1 Active 1urinary Immunizations Given and Recorded Vaccine Date Status Refusal Reason [id number] 12y+ bivalent booster vax 1 08/12/22 Given [...] 12/01/01 Given 1Result Comment: [facility]-[id number] left lower deltoid 2Result Comment: [facility]-[id number] left upper deltoid 3Result Comment: [facility]: [id number] 4Result Comment: [07/11/2017] [facility]; 79290-850-35 HIGH DOSE 5Result Comment: [facility]: [id number] 6Admin Note: H1N1 7Admin Note: recieved elsewhere Medications amLODIPine 5 mg oral tablet 1 tablet, By Mouth, Daily, # 90 tablet, 3 Refills, Maintenance, 07/27/22 11:13:00 EDT, [facility], 167.6, cm, 05/10/22 16:16:00 EDT, Height, 97.8, kg, 04/29/22 14:30:00 EDT, Dry Weight Start Date: 07/27/22 Status: Ordered atorvastatin 40 mg oral tablet 1 tablet, By Mouth, Daily, # 90 tablet, 1 Refills, Maintenance, 08/26/22 9:23:00 EST, [facility], 167.6, cm, 08/12/22 11:12:00 EST, Height, 97.8, kg, 04/29/22 14:30:00 EDT, Dry Weight Start Date: 08/26/22 Status: Ordered betamethasone topical dipropionate 0.05% cream 1 application, Topically, 2 times a day, # 15 Gm, 0 Refills, Maintenance, 09/30/22 15:16:00 EST, Cream, [facility], Partial fill [...] EDT, Route to Pharmacy Electronically, [facility], 167.6, cm, 03/25/22 7:30:... Start Date: 03/25/22 Status: Ordered FLUoxetine 20 mg oral capsule 20 mg, 1, capsule, By Mouth, Daily, # 90 capsule, Refills 3, Tot. Refills 3, Maintenance, 08/18/22 8:26:00 EST, Route to Pharmacy Electronically, [facility] # [facility], Partial fill upon patient [...] 1 Refills, Maintenance, 10/10/22 11:08:00 EST, Tablet, [facility] # [facility], Partial fill upon patient [...] Dates Health Status Cl inical Service Informant Rash of back Discharge Diagnosis 09/30/22 Non-Specified Social History Social History Type Response Smoking Status Never smoker entered on: 10/09/13 Sex Patient Care team information Care Team Personnel Name: Leticia Alcantara RN Position: [facility] Onco RN Member Role: Primary Care Nurse Name: Juliet Hay NP Position: [facility] PCO Associate Professional Member Role: Primary Care Nurse Name: Jovana Pal NP Position: [facility]O Associate Professional Member Role: PCP Address: Address: [address] [place] [address]- Name: Michaela Castillo RN Position: S RN Member Role: Primary Care Nurse Name: Stacy Garcia RN Position: S RN Member Role: Primary Care Nurse Name: María Elena Dixon RN Position: S RN Member Role: Primary Care Nurse Care Team Related Persons Name: ISAURO HARKINS Address: [address] [address] Name: AGNIESZKA MAURER Address: [address] [address]
--- OUTSIDE RECORDS SUMMARY | 2024-02-23 12:25 | XMS_ITS | Continuity of Care Document ---
Author Organization [facility] Address [address] [place] [address]- Care Team Providers Care Room Service Waiter Name Role Phone Wesley Pruitt MD Primary Care Physician Encounter [facility] Date(s): 05/30/19 - 09/27/19 [facility] [address] [place] [address]- [facility] Attending Physician: Camilo Boone MD Admitting Physician: Camilo Boone MD Referring Physician: Wesley Pruitt MD Allergies, [...] (oldterm) 12/01/01 Given 1Result Comment: [07/11/2017] [facility]; 87684-613-18 HIGH DOSE 2Admin Note: H1N1 3Admin Note: [...] 05/06/19 8:33:20 EDT, Route to Pharmacy Electronically, [id number], [facility], DECREASED DOSE Start Date: [...] 03/25/19 9:07:52 EDT, Route to Pharmacy Electronically, [id number], [facility] Start Date: 03/25/19 [...]
--- OUTSIDE RECORDS SUMMARY | 2024-02-23 12:26 | XMS_ITS | Continuity of Care Document ---
Author Organization [facility] Address [address] [place] [address]- Care Team Providers Care Asp Net Developer Name Role Phone Kae FACILITY SPECIALIST, Jovana Ghosh Primary Care Physician [phone] [facility] Date(s): 09/20/22 - 10/20/22 [facility] [address] [place] [address]- Allergies, Adverse Reactions, Alerts Substance Reaction Severity Status ciprofloxacin diarrhea Active codeine nausea Active Macrobid GI upset Active Spiriva 1 Active baclofen SEVERE GI UPSET Active 1urinary Immunizations Given and Recorded Vaccine Date Status Refusal Reason [id number] 12y+ bivalent booster vax 1 08/12/22 Given [...] 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 Given 1Result Comment: [facility]-[id number] left lower deltoid 2Result Comment: [facility]-[id number] left upper deltoid 3Result Comment: [facility]: [id number] 4Result Comment: [07/11/2017] [facility]; 54279-069-91 HIGH DOSE 5Result Comment: [facility]: [id number] 6Admin Note: H1N1 7Admin Note: recieved elsewhere Medications amLODIPine 5 mg oral tablet 1 tablet, By Mouth, Daily, # 90 tablet, 3 Refills, Maintenance, 07/27/22 11:13:00 EDT, [facility], 167.6, cm, 05/10/22 16:16:00 EDT, Height, 97.8, kg, 04/29/22 14:30:00 EDT, Dry Weight Start Date: 07/27/22 Status: Ordered atorvastatin 40 mg oral tablet 1 tablet, By Mouth, Daily, # 90 tablet, 1 Refills, Maintenance, 08/26/22 9:23:00 EST, [facility], 167.6, cm, 08/12/22 11:12:00 EST, Height, 97.8, kg, 04/29/22 14:30:00 EDT, Dry Weight Start Date: 08/26/22 Status: Ordered betamethasone topical dipropionate 0.05% cream 1 application, Topically, 2 times a day, # 15 Gm, 0 Refills, Maintenance, 09/30/22 15:16:00 EST, Cream, [facility] # [facility], Partial fill upon [...] 03/25/22 8:06:00 EDT, Route to Pharmacy Electronically, [facility] # [facility], 167.6, cm, 03/25/22 7:30:... Start Date: 03/25/22 Status: Ordered FLUoxetine 20 mg oral capsule 20 mg, 1, capsule, By Mouth, Daily, # 90 capsule, Refills 3, Tot. Refills 3, Maintenance, 08/18/22 8:26:00 EST, Route to Pharmacy Electronically, [facility] # [facility], Partial fill upon patient [...] 1 Refills, Maintenance, 10/10/22 11:08:00 EST, Tablet, [facility] # [facility], Partial fill upon patient [...] Team Personnel Name: Leticia Alcantara RN Position: [facility] Onco RN Member Role: Primary Care Nurse Name: Juliet Hay NP Position: [facility] PCO Associate Professional Member Role: Primary Care Nurse Name: Jovana Pal NP Position: [facility]O Associate Professional Member Role: PCP Address: Address: [address] [place] [address]- Name: Michaela Castillo RN Position: S RN Member Role: Primary Care Nurse Name: Stacy Garcia RN Position: S RN Member Role: Primary Care Nurse Name: María Elena Dixon RN Position: S RN Member Role: Primary Care Nurse Care Team Related Persons Name: ISAURO HARKINS Address: [address] [address] Name: AGNIESZKA MAURER Address: [address] [address]
--- OUTSIDE RECORDS SUMMARY | 2024-02-23 12:26 | XMS_ITS | Continuity of Care Document ---
Author Organization [facility] Address [address] [place] [address]- Care Team Providers Care Historical Manuscripts Curator Name Role Phone Edmond BRANDT, Wesley Kaur Primary Care Physician En[facility] Date(s): 08/11/21 - 09/10/21 [facility] [address] [place] [address]- Allergies, Adverse Reactions, Alerts Substance Reaction Severity [...] 1Result Comment: [facility]: [id number] 2Result Comment: [facility]: 81320-352-35 3Result Comment: [07/11/2017] [facility]; 89164-843-58 HIGH DOSE 4Admin Note: H1N1 5Admin Note: [...] 14:32:00 EDT, Route to Pharmacy Electronically, [facility], Partial fill upon patient [...] 1 Refills, Maintenance, 07/26/21 14:47:00 EDT, [facility], 167.6, cm, 07/26/21 14:38:00 [...] recent to oldest [Reference Range]: 1 2 Blood Pressure [90-138/55-84 mm Hg] 141/ 59mm Hg *H* (08/11/21 3:21 PM) 151/63mm Hg *H* (08/09/21 3:21 PM) Social History Social History Type Response Smoking Status Never smoker entered on: 10/09/13 Sex
--- OUTSIDE RECORDS SUMMARY | 2024-02-23 12:26 | XMS_ITS | Continuity of Care Document ---
Author Organization [facility] Address [address] [facility] [place] [address] [place] [address]- Care Team Providers Care Fire Safety Inspector Name Role Phone Kae GREGOR, Jovana Ghosh Primary Care Physician [phone] Encounter 01/16/23 - 01/23/23 [facility] [address], [address] [place] [address]- Attending Physician: Shanda Velazquez NP Admitting Physician: Shanda Velazquez NP Referring Physician: Shanda Velazquez NP Allergies, Adverse Reactions, Alerts Substance Reaction Severity Status ciprofloxacin diarrhea Active codeine nausea Active baclofen SEVERE GI UPSET Active Macrobid GI upset Active Spiriva 1 Active 1urinary Immunizations Given and Recorded Vaccine Date Status Refusal Reason [id number] 12y+ bivalent booster vax 1 08/12/22 Given [...] (PPV23) (oldterm) 12/01/01 Given 1Result Comment: [facility]-[id number] left lower deltoid 2Result Comment: [facility]-[id number] left upper deltoid 3Result Comment: [facility]: [id number] 4Result Comment: [07/11/2017] [facility]; 28843-237-50 HIGH DOSE 5Result Comment: [facility]: [phone] 6Admin Note: H1N1 7Admin Note: recieved elsewhere Medications amLODIPine 5 mg oral tablet 1 tablet, By Mouth, Daily, # 90 tablet, 3 Refills, Maintenance, 07/27/22 11:13:00 EDT, [facility], 167.6, cm, 05/10/22 16:16:00 EDT, [...] 1=remission 10zung 38 today;normal in counselling 11rx Results Radiology Reports * Exam Date Time Procedure Performing Provider Status 01/16/23 3:52 PM MM Digital Mammo Screening Ivone Farrell; Auth (Verified) Notes: (MM Digital Mammo Screening) Reason For Exam: Z12.31 SCREEN RESULT: MM Digital Mammo Screening PROCEDURE: MM Digital Mammo Screening INDICATION: Screening for breast cancer. No known palpable abnormalities. COMPARISON: Multiple priors dating back to 05/30/2019 TECHNIQUE: Full-field digital CC and MLO 3D tomosynthesis images of both breasts were acquired. Computer-aided detection (CAD) was utilized in the interpretation of this study. DENSITY: The breast tissue is almost entirely fatty. FINDINGS: No suspicious masses, suspicious microcalcifications, or areas of architectural distortion are seen in either breast to suggest malignancy. IMPRESSION: No mammographic evidence of malignancy. RECOMMENDATION: Routine mammographic screening BI-RADS: 1 (Negative) Lay letter mailed to patient WSN: [id number] Ordering Physician: Shanda Velazquez Dictated By: Agnieszka Andrade MD Dictated Date/Time: 01/17/23 8:12 am Reviewed By: Agnieszka Andrade MD Signed By: Agnieszka Andrade MD Signed Date/Time: 01/17/23 8:12 am Transcribed By: JULIET Garbage Collection Supervisor Date/Time: 01/17/23 8:07 am Birads: Social History Social History Type Response Smoking Status Never smoker entered on: 10/09/13 Sex MG Breast Screening * BHSPowerscribe , CIS S: TRANSCRIAgnieszka Munoz MD: VERIFY Event Display: Result: Authored Date: [id number] PROCEDURE: MM Digital Mammo Screening INDICATION: Screening for breast cancer. No known palpable abnormalities. COMPARISON: Multiple priors dating back to 05/30/2019 TECHNIQUE: Full-field digital CC and MLO 3D tomosynthesis images of both breasts were acquired. Computer-aided detection (CAD) was utilized in the interpretation of this study. DENSITY: The breast tissue is almost entirely fatty. FINDINGS: No suspicious masses, suspicious microcalcifications, or areas of architectural distortion are seen in either breast to suggest malignancy. IMPRESSION: No mammographic evidence of malignancy. RECOMMENDATION: Routine mammographic screening BI-RADS: 1 (Negative) Lay letter mailed to patient WSN: [id number] Ordering Physician: Shanda Velazquez Dictated By: Agnieszka Andrade MD Dictated Date/Time: 01/17/23 8:12 am Reviewed By: Agnieszka Andrade MD Signed By: Agnieszka Andrade MD Signed Date/Time: 01/17/23 8:12 am Transcribed By: JULIET Garbage Collection Supervisor Date/Time: 01/17/23 8:07 am Birads: Patient Care team information Care Team Personnel Name: Juliet Hay NP Position: [facility] PCO Associate Professional Member Role: Primary Care Nurse Name: Jovana Pal NP Position: [facility] Associate Professional Member Role: PCP Address: Address: [address] [place] [address]- Name: Michaela Castillo RN Position: S RN Member Role: Primary Care Nurse Name: Leticia Barth RN Position: [facility] Onco RN Member Role: Primary Care Nurse Name: María Elena Dixon RN Position: S RN Member Role: Primary Care Nurse Care Team Related Persons Name: ISAURO HARKINS Address: [address] [address] Name: AGNIESZKA MAURER Address: [place] [address]
--- OUTSIDE RECORDS SUMMARY | 2024-02-23 12:26 | XMS_ITS | Continuity of Care Document ---
Author Organization [facility] Address [address] [place] [address]- Care Team Providers Care Mold Parter Name Role Phone Edmond BRANDT, Wesley Kaur Primary Care Physician [phone] [facility] Date(s): 08/31/21 - 09/30/21 [facility] [place] [address] [place] [address]- Allergies, Adverse Reactions, Alerts Substance Reaction Severity [...] Comment: [facility]: [id number] 2Result Comment: [facility]: [id number] 3Result Comment: [07/11/2017] [facility]; 07753-719-84 HIGH DOSE 4Admin Note: H1N1 5Admin Note: [...]
--- OUTSIDE RECORDS SUMMARY | 2024-02-23 12:26 | XMS_ITS | Continuity of Care Document ---
Author Organization [facility]ocrinolo gy and Diabetes Address [address] [place] [address]- Care Team Providers Care Nut Sorter Operator Name Role Phone Kae Jovana BUNDY Primary Care Physician [phone] [facility]counter [facility] Date(s): 01/12/24 - 02/11/24 [facility] Diabetes [address] [place] [id number] Attending Physician: [...] pneumococcal 20-valent conjugate vaccine 5 02/13/23 Given [id number] 12y+ bivalent booster vax 6 08/12/22 Given [...] 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 Given 1Result Comment: [id number] 2Result Comment: [facility]-[id number] left upper deltoid 3Result Comment: [facility]: [id number] 4Result Comment: [07/11/2017] [facility]; 22670-215-51 HIGH DOSE 5Result Comment: [id number] 6Result Comment: [facility]-[id number] left lower deltoid 7Result Comment: [facility]: [id number] 8Admin Note: H1N1 9Admin Note: recieved elsewhere Medications amLODIPine 5 mg oral tablet 1 tablet, By Mouth, Daily, # 90 tablet, 1 Refills, Maintenance, 02/02/24 14:29:00 EDT, [facility], 167.6, cm, 02/02/24 13:57:00 EDT, Height, 97.8, kg, 04/29/22 14:30:00 EDT, Dry Weight Start Date: 02/02/24 Status: Ordered atorvastatin 40 mg oral tablet 1 tablet, By Mouth, Daily, # 90 tablet, 1 Refills, Maintenance, 02/02/24 14:29:00 EDT, [facility], 167.6, cm, 02/02/24 13:57:00 EDT, [...] 02/02/24 14:30:00 EDT, Route to Pharmacy Electronically, [facility], 167.6, cm, 02/02/24 13:57:00EDT, Height, 97.8, kg, 04/29/22 14:30:00 EDT, Dry W... Start Date: 02/02/24 Status: Ordered fluticasone 50 mcg/inh nasal spray 2 sprays, Nasal, Daily, in each nostril use opposite hnad for each nostril, # 16 Gm, 1 Refills, Maintenance, 10/28/21 15:32:00 EST, [facility], 2 sprays Nasal Daily,Instr:in each nostril; use opposite hnad for each nostril, 167.6,... Start Date: 10/28/21 Status: Ordered Imodium A-D 2 mg oral tablet 2 mg, 1, tablet, By Mouth, Every 4 hours, PRN, # 60 tablet, Refills 0, Maintenance, for loose stool, 09/17/19 6:57:56 EST Start Date: 12/17/19 Status: Ordered LORazepam 0.5 mg oral tablet [...] Team Personnel Name: Juliet Hay NP Position: [facility] Associate Professional Member Role: Primary Care Nurse Name: Jovana Pal NP Position: [facility] Associate Professional Member Role: PCP Address: Address: [address] [place] [address]- Name: Michaela Castillo RN Position: S RN Member Role: Primary Care Nurse Name: Lary STRATTON, Leticia Barrientos Position: [facility] Onco RN Member Role: Primary Care Nurse Name: Stacy Garcia RN Position: [facility] AMB Nurse Member Role: Primary Care Nurse Name: María Elena Dixon RN Position: [facility] RN Member Role: Primary Care Nurse Care Team Related Persons Name: ISAURO HARKINS Address: [address] [address] Name: AGNIESZKA MAURER Address: [address] [address]
--- OUTSIDE RECORDS SUMMARY | 2024-02-23 12:26 | XMS_ITS | Continuity of Care Document ---
Author Organization [facility] Address [address] [place] [address]- Care Team Providers Care Mechanical Oxidizer Name Role Phone Edmond BRANDT, Wesley Kaur Primary Care Physician En[facility] Date(s): 03/15/22 - 04/14/22 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 [...]
--- OUTSIDE RECORDS SUMMARY | 2024-02-23 12:26 | XMS_ITS | Continuity of Care Document ---
Author Organization [facility] Address [address] [place] [address]- Care Team Providers Care Special Assemblies Supervisor Name Role Phone Edmond BRANDT, Wesley Kaur Primary Care Physician [phone] [facility] Date(s): 12/06/20 - 01/05/21 [facility] [place] Adult [address] [place] [address]- Allergies, Adverse Reactions, Alerts Substance Reaction Severity [...] [07/11/2017] [facility]; 69016-391-59 HIGH DOSE 2Admin Note: H1N1 3Admin Note: recieved elsewhere Medications acetaminophen 325 mg oral tablet 650 mg, By Mouth, Every 6 hours, Refills 0, Maintenance, 09/19/19 11:55:00 EST Start Date: 09/19/19 Status: Ordered amLODIPine 5 mg oral tablet 5 mg, 1, tablet, By Mouth, Daily, # 90 tablet, Refills 3, Tot. Refills 3, Maintenance, 06/29/20 14:01:00 EDT, Route to Pharmacy Electronically, [facility], 167.6, cm, 06/16/20 10:40:00 EDT, Height, 101.2, kg, 09/17/19 10:13:00 EST,... Start Date: 06/29/20 Status: Ordered atorvastatin 40 mg oral tablet 1 tablet = 40 mg, By Mouth, Daily, # 90 tablet, 1 Refills, Soft Stop, 09/07/20 14:24:00 EST, [facility], 167.6, cm, 08/19/20 7:30:00 EST, [...] 1 Refills, Maintenance, 10/23/20 9:37:00 EST, [facility], 2 sprays Nasal Daily,Instr:in each [...] Acute 01/06/21 14:01:00 EDT, 12/07/20 14:01:00 EST, [facility], early fill, 167.6, cm, 12/07/20 13:11:00 EST, Height, 101.2, kg, 09/17/19 10:13:00 EST, Dry We... Start Date: 12/07/20 Stop Date: 01/06/21 Status: Ordered LORazepam 0.5 mg oral tablet 1 tablet = 0.5 mg, By Mouth, Daily at bedtime, # 90 tablet, 1 Refills, Maintenance, 07/13/20 16:01:00 EDT, [facility], 167.6, cm, 06/30/20 9:53:00 EDT, [...]
--- OUTSIDE RECORDS SUMMARY | 2024-02-23 12:26 | XMS_ITS | Continuity of Care Document ---
Author Organization [facility] Endocrinolo gy and Diabetes Address [address] [place] [address]- Care Team Providers Care Sketch Maker Name Role Phone Edmond BRANDT, Wesley Kaur Primary Care Physician Encounter [facility] Date(s): 07/16/21 - 11/13/21 [facility] Endocrinology and Diabetes [address] [place] [address] Attending Physician: Ollie Connor MD Admitting Physician: Ollie Connor MD Allergies, Adverse Reactions, [...] Given 1Result Comment: [facility]: [id number] 2Result Comment: [facility]: [id number] 3Result Comment: [07/11/2017] [facility]; 85510-362-85 HIGH DOSE 4Admin Note: H1N1 5Admin Note: [...] 30 tablet, 5 Refills, Maintenance, 11/12/21 10:51:00EST, [facility], Partial fill [...] 14:32:00 EDT, Route to Pharmacy Electronically, [facility], Partial fill upon patient request if the prescription is for a schedule I... Start Date: 02/22/21 Status: Ordered fluticasone 50 mcg/inh nasal spray 2 sprays, Nasal, Daily, in each nostril use opposite hnad for each nostril, # 16 Gm, 1 Refills, Maintenance, 10/28/21 15:32:00 EST, [facility], 2 sprays Nasal Daily,Instr:in each [...]
--- OUTSIDE RECORDS SUMMARY | 2024-02-23 12:26 | XMS_ITS | Continuity of Care Document ---
Author Organization [facility] Address [address] [place] [address]- Care Team Providers Care Food Production Supervisor Name Role Phone Edmond BRANDT, Wesley Kaur Primary Care Physician [phone] Encounter [facility] Date(s): 07/26/21 - 08/02/21 [facility] Adult [address] [place] [address]- Encounter Diagnosis Annual physical exam(Discharge Diagnosis) - 07/26/21 Attending Physician: Jovana Pal NP Referring Physician: [...] 1Result Comment: [facility]: [id number] 2Result Comment: [facility]: [phone] 3Result Comment: [07/11/2017] [facility]; 34711-722-76 HIGH DOSE 4Admin Note: H1N1 5Admin Note: [...] Refills, Soft Stop, 03/04/21 12:12:00 EDT, [facility], 167.6, cm, 02/24/21 14:50:00 EDT, [...] 02/22/21 14:32:00 EDT, Route to Pharmacy Electronically, [facility], Partial fill upon patient request if the prescription is for a schedule I... Start Date: 02/22/21 Status: Ordered fluticasone 50 mcg/inh nasal spray 2 sprays, Nasal, Daily, in each nostril use opposite hnad for each nostril, # 16 Gm, 1 Refills, Maintenance, 01/09/21 10:28:00 EDT, [facility], 2 sprays Nasal Daily,Instr:in each [...] 1 Refills, Maintenance, 07/26/21 14:47:00 EDT, [facility], 167.6, cm, 07/26/21 14:38:00 EDT, Height, 107.9, kg, 02/24/2113:39:00 EDT, Dry Weight Start Date: 07/26/21 Status: Ordered omeprazole 20 mg oral enteric coated capsule 1 capsule = 20 mg, By Mouth, Daily, # 90 capsule, 3 Refills, Maintenance, 08/26/20 13:24:00 EST, ECCapsule, [facility], 167.6, cm, 08/19/20 7:30:00 EST, [...] Dates Health Status Cl inical Service Informant Annual physical exam Discharge Diagnosis 07/26/21 Vital Signs Most recent to oldest [Reference Range]: 1 2 Height 167.6 cm (07/26/21 2:38 PM) 167.6 cm (07/26/21 2:06 PM) Weight 106.1 kg (07/26/21 2:06 PM) Oxygen Saturation [94-100 %] 98 % (07/26/21 2:06 PM) Pulse Rate [55-90 bpm] 86 bpm (07/26/21 2:06 PM) Body Mass Index [18.5-24.99] 37.77 *>HHI* (07/26/21 2:06 PM) Blood Pressure [90-138/55-84 mm Hg] 152/ 84mm Hg *H* (07/26/21 2:38 PM) 142/64mm Hg *H* (07/26/21 2:06 PM) Respiratory Rate [16-30 br/min] 16 br/mi n (07/26/21 2:06 PM) Temperature [96.8-100.4 DegF] 97.4 DegF (07/26/21 2:06 PM) Mode of Delivery (Oxygen) Room air (07/26/21 2:06 PM) Blood pressure sites Arm, left (07/26/21 2:38 PM) Arm, right (07/26/21 2:06 PM) Temperature Route Oral (07/26/21 2:06 PM) Weight Obtained Via Standing scale (07/26/21 2:06 PM) Social History Social History Type Response Smoking Status Never smoker entered on: 10/09/13 Sex
--- OUTSIDE RECORDS SUMMARY | 2024-02-23 12:26 | XMS_ITS | Continuity of Care Document ---
Author Organization [facility] Address [address] [place] [address]- Care Team Providers Care Radio Equipment Installer Name Role Phone Edmond BRANDT, Wesley Kaur Primary Care Physician [facility] Date(s): 05/06/20 - 06/05/20 [facility] Adult [address] [place] [address]- [place] Allergies, Adverse Reactions, Alerts Substance Reaction [...] Comment: [07/11/2017] [facility]; 27344-576-91 HIGH DOSE 2Admin Note: H1N1 3Admin Note: [...] 1 Refills, Maintenance, 03/26/20 15:58:00 EDT, [facility], 167.6, cm, 03/10/20 15:20:00 EDT, [...] 06/03/20 14:27:00 EDT, Route to Pharmacy Electronically, [facility], 167.6, cm, 05/14/20 12:44:00 [...]
--- OUTSIDE RECORDS SUMMARY | 2024-02-23 12:26 | XMS_ITS | Continuity of Care Document ---
Author Organization [facility] Address [address] [place] [address]- Care Team Providers Care Stencil Typist Name Role Phone Edmond BRANDT, Wesley Kaur Primary Care Physician [facility] Date(s): 06/29/20 - 07/29/20 [facility] Adult [address] [place] [address]- [facility] Allergies, Adverse Reactions, Alerts Substance Reaction [...] 1Result Comment: [07/11/2017] [facility]; 08396-919-09 HIGH DOSE 2Admin Note: H1N1 3Admin Note: [...] Refills, Soft Stop, 03/09/20 11:18:00 EDT, [facility], 167.6, cm, 09/19/19 7:55:00 EST, [...] 05/07/20 9:11:00 EDT, Route to Pharmacy Electronically, [facility], 167.6, cm, 05/07/20 8:56:00 EDT, Height, 101.2, kg, 09/17/19 10:13:00 EST,... Start Date: 05/07/20 Status: Ordered fluticasone 50 mcg/inh nasal spray 2 sprays, Nasal, Daily, in each nostril use opposite hnad for each nostril, # 16 Gm, 3 Refills, Maintenance, 01/10/20 8:38:00 EDT, [facility], 2 sprays Nasal Daily,Instr:in each [...] 1 Refills, Maintenance, 07/13/20 16:01:00 EDT, [facility], 167.6, cm, 06/30/20 9:53:00 EDT, Height, 101.2, kg, 09/17/19 10:13:00 EST, Dry Weight Start Date: 07/13/20 Status: Ordered omeprazole 20 mg oral enteric coated capsule 1 capsule = 20 mg, By Mouth, Daily, # 90 capsule, 3 Refills, Maintenance, 08/15/19 10:35:59 EST, ECCapsule, [facility] Start Date: 08/15/19 Stop Date: [...]
--- OUTSIDE RECORDS SUMMARY | 2024-02-23 12:26 | XMS_ITS | Continuity of Care Document ---
Author Organization [facility] Address [address] [place] [address]- Care Team Providers Care Geoscience Professor Name Role Phone Jovana Pal NP Primary Care Physician [phone] Encounter [facility] Date(s): 05/18/23 - 06/13/[address] [address]- Encounter Diagnosis Low back pain, unspecified(Final) - Discharge Disposition: A-D/C Home Attending Physician: Jovana Pal NP Admitting Physician: Jovana Pal NP Allergies, Adverse Reactions, Alerts Substance Reaction Severity Status ciprofloxacin diarrhea Active codeine nausea Active baclofen SEVERE GI UPSET Active Spiriva 1 Active Macrobid GI upset Active 1urinary Immunizations Given and Recorded Vaccine Date Status Refusal Reason pneumococcal 20-valent conjugate vaccine 1 02/13/23 Given [id number] 12y+ bivalent booster vax 2 08/12/22 Given [...] 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-[id number] left lower deltoid 3Result Comment: [facility]-[id number] left upper deltoid 4Result Comment: [facility]: 23389-827-10 5Result Comment: [07/11/2017] [facility]; 83722-753-09 HIGH DOSE 6Result Comment: [facility]: 5310-8385-88 7Admin Note: H1N1 8Admin Note: recieved elsewhere Medications amLODIPine 5 mg oral tablet 1 tablet, By Mouth, Daily, # 90 tablet, 3 Refills, Maintenance, 07/27/22 11:13:00 EDT, [facility], 167.6, cm, 05/10/22 16:16:00 EDT, Height, 97.8, kg, 04/29/22 14:30:00 EDT, Dry Weight Start Date: 07/27/22 Status: Ordered atorvastatin 40 mg oral tablet 1 tablet, By Mouth, Daily, # 90 tablet, 1 Refills, Maintenance, 02/22/23 18:23:00 EDT, [facility], 167.6, cm, 02/13/23 15:04:00 EDT, [...] 06/06/23 7:52:00 EDT, Route to Pharmacy Electronically, [facility], 167.6, cm, 03/23/23 10:29:0... [...] Professional Member Role: PCP Address: Address: [address] [place] [address]- Name: Michaela Castillo RN [facility] RN Member Role: Primary Care Nurse Name: Leticia Barth RN Position: [facility] Onco RN Member Role: Primary Care Nurse Name: Stacy Garcia RN Position: [facility] SN RN Member Role: Primary Care Nurse Name: María Elena Dixon RN Position: [facility] RN Member Role: Primary Care Nurse Care Team Related Persons Name: ISAURO HARKINS Address: [address] [address] Name: AGNIESZKA MAURER Address: [address] [address]
--- OUTSIDE RECORDS SUMMARY | 2024-02-23 12:26 | XMS_ITS | Continuity of Care Document ---
Author Organization [facility] Address [address] [place] [address]- Care Team Providers Care Civil Engineer Land Development Name Role Phone Edmond BRANDT, Wesley Kaur Primary Care Physician [facility] Date(s): 08/24/21 - 09/23/21 [facility] Adult [address] [place] [address]- Allergies, Adverse Reactions, Alerts Substance Reaction Severity [...] 1Result Comment: [facility]: 5845-9606-36 2Result Comment: [facility]: 14131-751-48 3Result Comment: [07/11/2017] [facility]; 73054-868-99 HIGH DOSE 4Admin Note: H1N1 5Admin Note: [...]
--- OUTSIDE RECORDS SUMMARY | 2024-02-23 12:26 | XMS_ITS | Continuity of Care Document ---
Author Organization [facility] Address [address] [place] [address]- Care Team Providers Care Pharmacy Helper Name Role Phone Kae MEDICAL COLLECTOR, Jovana Ghosh Primary Care Physician [facility] Date(s): 09/23/22 - 10/23/22 [facility] Adult [address] [place] [address]- Allergies, Adverse Reactions, Alerts Substance Reaction Severity Status ciprofloxacin diarrhea Active codeine nausea Active baclofen SEVERE GI UPSET Active Macrobid GI upset Active Spiriva 1 Active 1urinary Immunizations Given and Recorded Vaccine Date Status Refusal Reason [id number] 12y+ bivalent booster vax 1 08/12/22 Given [...] 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 Given 1Result Comment: [facility]-[id number] left lower deltoid 2Result Comment: [facility]-[id number] left upper deltoid 3Result Comment: [facility]: 07975-694-89 4Result Comment: [07/11/2017] [facility]; 71658-042-58 HIGH DOSE 5Result Comment: [facility]: 1401-0396-40 6Admin Note: H1N1 7Admin Note: recieved elsewhere Medications amLODIPine 5 mg oral tablet 1 tablet, By Mouth, Daily, # 90 tablet, 3 Refills, Maintenance, 07/27/22 11:13:00 EDT, [facility], 167.6, cm, 05/10/22 16:16:00 EDT, Height, 97.8, kg, 04/29/22 14:30:00 EDT, Dry Weight Start Date: 07/27/22 Status: Ordered atorvastatin 40 mg oral tablet 1 tablet, By Mouth, Daily, # 90 tablet, 1 Refills, Maintenance, 08/26/22 9:23:00 EST, [facility], 167.6, cm, 08/12/22 11:12:00 EST, Height, 97.8, kg, 04/29/22 14:30:00 EDT, Dry Weight Start Date: 08/26/22 Status: Ordered betamethasone topical dipropionate 0.05% cream 1 application, Topically, 2 times a day, # 15 Gm, 0 Refills, Maintenance, 09/30/22 15:16:00 EST, Cream, [facility], Partial [...] 03/25/22 8:06:00 EDT, Route to Pharmacy Electronically, [facility], 167.6, cm, 03/25/22 7:30:... Start Date: 03/25/22 Status: Ordered FLUoxetine 20 mg oral capsule 20 mg, 1, capsule, By Mouth, Daily, # 90 capsule, Refills 3, Tot. Refills 3, Maintenance, 08/18/22 8:26:00 EST, Route to Pharmacy Electronically, [facility] # [facility], Partial fill upon patient [...] 1 Refills, Maintenance, 10/10/22 11:08:00 EST, Tablet, [facility] # [facility], Partial fill upon patient [...] Team Personnel Name: Leticia Alcantara RN Position: [facility] Onco RN Member Role: Primary Care Nurse Name: Juliet Hay NP Position: [facility]O Associate Professional Member Role: Primary Care Nurse Name: Jovana Pal NP Position: [facility] Associate Professional Member Role: PCP Address: Address: [address] [place] [address]- Name: Michaela Castillo RN Position: S RN Member Role: Primary Care Nurse Name: Stacy Garcia RN Position: S RN Member Role: Primary Care Nurse Name: María Elena Dixon RN Position: S RN Member Role: Primary Care Nurse Care Team Related Persons Name: ISAURO HARKINS Address: [address] [address] Name: AGNIESZKA MAURER Address: [address] [address]
--- OUTSIDE RECORDS SUMMARY | 2024-02-23 12:26 | XMS_ITS | Continuity of Care Document ---
Author Organization [facility] Address [address] [place] [address]- Care Team Providers Care Landscaper Helper Name Role Phone Kae BASS STRING WINDER, Jovana Ghosh Primary Care Physician [facility] Date(s): 07/17/23 - 08/16/23 [facility] Adult [address] [place] [address]- Allergies, Adverse Reactions, Alerts Substance Reaction Severity [...] pneumococcal 20-valent conjugate vaccine 5 02/13/23 Given [id number] 12y+ bivalent booster vax 6 08/12/22 Given [...] 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 Given 1Result Comment: [id number] 2Result Comment: [facility]-[id number] left upper deltoid 3Result Comment: [facility]: 40394-390-01 4Result Comment: [07/11/2017] [facility]; 00028-287-90 HIGH DOSE 5Result Comment: [id number] 6Result Comment: [facility]-[id number] left lower deltoid 7Result Comment: [facility]: [id number] 8Admin Note: H1N1 9Admin Note: recieved elsewhere Medications amLODIPine 5 mg oral tablet 1 tablet, By Mouth, Daily, # 90 tablet, 3 Refills, Maintenance, 07/27/22 11:13:00 EDT, [facility], 167.6, cm, 05/10/22 16:16:00 EDT, Height, 97.8, kg, 04/29/22 14:30:00 EDT, Dry Weight Start Date: 07/27/22 Status: Ordered atorvastatin 40 mg oral tablet 1 tablet, By Mouth, Daily, # 90 tablet, 1 Refills, Maintenance, 02/22/23 18:23:00 EDT, [facility], 167.6, cm, 02/13/23 15:04:00 EDT, [...] 1 Refills, Maintenance, 10/28/21 15:32:00 EST, [facility], 2 sprays Nasal Daily,Instr:in [...] 90 capsule, 3 Refills, 05/22/23 10:49:00 EDT, [facility], 167.6, cm, 03/23/23 10:29:00 EDT, Height, 97.8, kg, 04/29/22 14:30:00 EDT, Dry Weight Start Date: 05/22/23 Status: Ordered QUEtiapine 25 mg oral tablet 25 mg, 1, tablet, By Mouth, Daily at bedtime, for 90 days, replaces lorazepam, # 90 tablet, Refills1, Tot. Refills 1, Acute 01/06/24 21:09:00 EDT, 07/10/23 21:09:00 EDT, Route to Pharmacy Electronically, [facility], 167.6, cm, 03/03... Start Date: [...] Team Personnel Name: Juliet Hay NP Position: [facility] Associate Professional Member Role: Primary Care Nurse Name: Jovana Pal NP Position: [facility] Associate Professional Member Role: PCP Address: Address: [address] [place] [id number] Name: Michaela Castillo RN Position: [facility] RN Member Role: Primary Care Nurse Name: Leticia Barth RN Position: [facility] Onco RN Member Role: Primary Care Nurse Name: Stacy Garcia RN Position: [facility] SN RN Member Role: Primary Care Nurse Name: María Elena Dixon RN Position: [facility] RN Member Role: Primary Care Nurse Care Team Related Persons Name: ISAURO HARKINS Address: [address] [address] Name: AGNIESZKA MAURER Address: [address] [address]
--- OUTSIDE RECORDS SUMMARY | 2024-02-23 12:26 | XMS_ITS | Continuity of Care Document ---
Author Organization [facility] S[facility] Address [address] [place] [address]- Care Team Providers Care Residential Support Worker Name Role Phone Edmond BRANDT, Wesley Kaur Primary Care Physician Encounter [facility] Date(s): 09/06/21 - 10/06/21 [facility] Adult [address] [place] [address]- Allergies, Adverse Reactions, Alerts Substance Reaction Severity [...] 12/01/01 Given 1Result Comment: [facility]: [id number] 2Result Comment: [facility]: 69643-176-48 3Result Comment: [07/11/2017] [facility]; 97030-698-53 HIGH DOSE 4Admin Note: H1N1 5Admin Note: recieved elsewhere Medications amLODIPine 5 mg oral tablet 1 tablet = 5 mg, By Mouth, Daily, # 90 tablet, 1 Refills, Maintenance, 06/02/21 17:26:00 EDT, [facility], 167.6, cm, 02/24/21 14:50:00 EDT, Height, 107.9, kg, 02/24/21 13:39:00 EDT, Dry Weight Start Date: 06/02/21 Status: Ordered atorvastatin 40 mg oral tablet 1 tablet, By Mouth, Daily, # 90 tablet, 1 Refills, [facility], 167.6, cm, 08/19/21 11:48:00 EST, [...] 02/22/21 14:32:00 EDT, Route to Pharmacy Electronically, [facility], Partial fill upon patient request [...] tablet, 0 Refills, Maintenance, 09/20/21 11:54:00 EST, [facility], 167.6, cm, 08/19/21 11:48:00 [...]
--- OUTSIDE RECORDS SUMMARY | 2024-02-23 12:26 | XMS_ITS | Continuity of Care Document ---
Author Organization 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
--- OUTSIDE RECORDS SUMMARY | 2024-02-23 12:26 | XMS_ITS | Continuity of Care Document ---
Author Organization [facility] Sae lt Address [address] [place] [address]- Care Team Providers Care Ruling Machine Set Up Operator Name Role Phone Kae CONCRETE LABORER, Jovana Ghosh Primary Care Physician [facility]s): 07/18/23 - 08/17/23 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 Given 1Result Comment: [id number] 2Result Comment: [facility]-[id number] left upper deltoid 3Result Comment: [facility]: 41198-515-79 4Result Comment: [07/11/2017] [facility]; 12811-031-46 HIGH DOSE 5Result Comment: [id number] 6Result Comment: [facility]-[id number] left lower deltoid 7Result Comment: [facility]: [id number] 8Admin Note: H1N1 9Admin Note: recieved elsewhere [...] 13:17:00 EDT, Route to Pharmacy Electronically, [facility], 167.6, cm, 03/23/23 10:29:00 EDT, [...] capsule, 3 Refills, 05/22/23 10:49:00 EDT, [facility], 167.6, cm, 03/23/23 10:29:00 EDT, Height, 97.8, kg, 04/29/22 14:30:00 EDT, Dry Weight Start Date: 05/22/23 Status: Ordered QUEtiapine 25 mg oral tablet 25 mg, 1, tablet, By Mouth, Daily at bedtime, for 90 days, replaces lorazepam, # 90 tablet, Refills1, Tot. Refills 1, Acute 01/06/24 21:09:00 EDT, 07/10/23 21:09:00 EDT, Route to Pharmacy Electronically, [facility], 167.6, cm, 03/03... Start Date: [...] 14:31:00 EST, Route to Pharmacy Electronically, [facility], Partial fill upon patient request [...] Event Display: Cardiovascular Results Scanned Authored Date: Laboratory * Event Display: Non BH Lab [...] PERFORM Event Display: Patient Education/Instruction Authored Date: [facility] Orin Donaldson Clinical Summary Person Information Name BRIANNA HARKINS [...] primary care provider, you may find a [facility] provider by calling [facility] at [phone]. Patient Education Information Follow-up Details: Patient Education Material: Patient Care team information Care Team Personnel Name: Juliet Hay NP Position: [facility] Associate Professional Member Role: Primary Care Nurse Name: Jovana Pal NP Position: [facility] Associate Professional Member Role: PCP Address: Address: [address] [place] [address]- Name: Michaela Castillo RN Position: [facility] RN Member Role: Primary Care Nurse Name: Leticia Barth RN Position: [facility] Onco RN Member Role: Primary Care Nurse Name: Stacy Garcia RN Position: [facility] SN RN Member Role: Primary Care Nurse Name: María Elena Dixon RN Position: [facility] RN Member Role: Primary Care Nurse Care Team Related Persons Name: ISAURO HARKINS Address: home [address] [place] [address] Name: AGNIESZKA MAURER Address: [address] [address]
--- OUTSIDE RECORDS SUMMARY | 2024-02-23 12:26 | XMS_ITS | Continuity of Care Document ---
Author Organization [facility] Address [address] [facility] [place] [address]- Care Team Providers Care Ground Intelligence Officer Name Role Phone Edmond BRANDT, Wesley Kaur Primary Care Physician Encounter 08/03/22 - 08/10/22 [facility] [address], [address] [place] [address]- Attending Physician: Ollie Connor MD Admitting Physician: [...] 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 Given 1Result Comment: [facility]: [id number] 2Result Comment: [facility]: [id number] 3Result Comment: [07/11/2017] [facility]; 00199-530-05 HIGH DOSE 4Admin Note: H1N1 5Admin Note: [...] 03/25/22 8:06:00 EDT, Route to Pharmacy Electronically, [facility], 167.6, cm, 03/25/22 7:30:... [...] bedtime, # 30 tablet, 0 Refills, Maintenance, 06/22/22 20:31:00 EDT, Tablet, [facility], Partial fill upon patient request if the prescription is for a schedule II opioid drug., 167.6, cm, 05/10/22 16:16:... Start Date: 06/22/22 Status: Ordered omeprazole 20 mg oral enteric [...] Confirmed Active Essential familial hyperlipidemia Confirmed Active Abdominal cramping Confirmed Active h/o compression Fracture spine Confirmed 06/20/20 Active GERD without esophagitis egd 2018 3, 4 Confirmed Active History of arthroplasty of left knee Confirmed 09/17/19 Active Hypertension Confirmed Active IBS (irritable bowel syndrome) 5 Confirmed Active Impaired fasting glucose 6 Confirmed Active LVH (left ventricular hypertrophy) Echo 2016 Confirmed Active Anemia, macrocytic Confirmed 07/29/22 Active Depression, major 7, 8, 9, 10 Confirmed Active Epicondylitis elbow, medial 11 Confirmed Active Mitral insufficiency echo nov 2021 Confirmed 12/12/21 Active Obese class II Confirmed Active Obesity (BMI 30-39.9) Confirmed Active Osteoporosis Confirmed 04/02/20 Active Female pelvic pain Confirmed 08/04/21 Active PFO (patent foramen ovale) possible ECHO 2021 Confirmed Active Chronic venous insufficiency Confirmed Active PND (post-nasal drip) globus Confirmed Active Pyuria Confirmed Active Secondary hyperparathyroidism/e ndocrinology Confirmed Active Trochanteric bursitis of left hip Confirmed Active Unspecified Vitamin D Deficiency 12 Confirmed Active 1referv echo 2Borderline mild obstruction [...] Nurse Name: Juliet Hay NP Position: [facility] Associate Professional Member Role: Primary Care Nurse Name: Jovana Pal NP Position: [facility] Associate Professional Member Role: Lifetime Consulting Provider Address: Address: [address] [place] [address]- Name: Wesley Pruitt MD Position: [facility] Primary Care Physician Member Role: PCP Address: Address: [address] [place] [address]- Name: Michaela Castillo RN Position: S RN Member Role: Primary Care Nurse Name: Stacy Garcia RN Position: S RN Member Role: Primary Care Nurse Name: María Elena Dixon RN Position: S RN Member Role: Primary Care Nurse Care Team Related Persons Name: ISAURO HARKINS Address: [address] [address] Name: AGNIESZKA MAURER Address: [address] [address]
--- OUTSIDE RECORDS SUMMARY | 2024-02-23 12:27 | XMS_ITS | Continuity of Care Document ---
Author Organization [facility] Address [address] [place] [address]- Care Team Providers Care Drapery Seamstress Name Role Phone Kae LOAN SERVICING SPECIALISTJovana Primary Care Physician [facility] Date(s): 01/19/24 - 02/18/24 [facility] [address] [place] [address]- [place] Allergies, Adverse Reactions, Alerts Substance Reaction [...] pneumococcal 20-valent conjugate vaccine 5 02/13/23 Given [id number] 12y+ bivalent booster vax 6 08/12/22 Given [...] 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 Given 1Result Comment: [id number] 2Result Comment: [facility]-[id number] left upper deltoid 3Result Comment: [facility]: 26892-798-47 4Result Comment: [07/11/2017] [facility]; 57339-890-63 HIGH DOSE 5Result Comment: [id number] 6Result Comment: [facility]-[id number] left lower deltoid 7Result Comment: [facility]: [phone] 8Admin Note: H1N1 9Admin Note: recieved elsewhere [...] 02/02/24 14:30:00 EDT, Route to Pharmacy Electronically, [facility], 167.6, cm, 02/02/24 13:57:00EDT, Height, 97.8, kg, 04/29/22 14:30:00 EDT, Dry W... Start Date: 02/02/24 Status: Ordered fluticasone 50 mcg/inh nasal spray 2 sprays, Nasal, Daily, in each nostril use opposite hnad for each nostril, # 16 Gm, 1 Refills, Maintenance, 10/28/21 15:32:00 EST, [facility], 2 sprays Nasal Daily,Instr:in each [...] Team Personnel Name: Juliet Hay NP Position: [facility] Associate Professional Member Role: Primary Care Nurse Name: Jovana Pal NP Position: [facility] Associate Professional Member Role: PCP Address: Address: [address] [place] [address]- Name: Michaela Castillo RN Position: [facility] RN Member Role: Primary Care Nurse Name: Leticia Barth RN Position: [facility] Onco RN Member Role: Primary Care Nurse Name: Stacy Garcia RN Position: [facility] AMB Nurse Member Role: Primary Care Nurse Name: María Elena Dixon RN Position: [facility] RN Member Role: Primary Care Nurse Care Team Related Persons Name: HARKINS ISAURO Address: [address] [address] Name: AGNIESZKA MAURER Address: [address] [address]
--- OUTSIDE RECORDS SUMMARY | 2024-02-23 12:27 | XMS_ITS | Continuity of Care Document ---
Author Organization [facility] Address [address] [place] [address]- Care Team Providers Care Dormitory Keeper Name Role Phone Kae GREGOR, Jovana Ghosh Primary Care Physician [facility] Date(s): 04/20/23 - 05/20/23 [facility] [address] [place] [address]- Attending Physician: Rosamaria Kitchen Admitting Physician: Rosamaria Kitchen Referring Physician: AdmRosamaria hernandez Allergies, Adverse Reactions, Alerts Substance Reaction Severity Status ciprofloxacin diarrhea Active codeine nausea Active Spiriva 1 Active baclofen SEVERE GI UPSET Active Macrobid GI upset Active 1urinary Immunizations Given and Recorded Vaccine Date Status Refusal Reason pneumococcal 20-valent conjugate vaccine 1 02/13/23 Given [id number] 12y+ bivalent booster vax 2 08/12/22 Given [...] 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 Given 1Result Comment: [id number] 2Result Comment: [facility]-[id number] left lower deltoid 3Result Comment[facility]-[id number] left upper deltoid 4Result Comment: [facility]: 75636-592-73 5Result Comment: [07/11/2017] [facility]; 69001-003-17 HIGH DOSE 6Result Comment: [facility]: [phone] 7Admin Note: H1N1 8Admin Note: recieved elsewhere Medications amLODIPine 5 mg oral tablet 1 tablet, By Mouth, Daily, # 90 tablet, 3 Refills, Maintenance, 07/27/22 11:13:00 EDT, [facility], 167.6, cm, 05/10/22 16:16:00 EDT, [...] 05/17/23 13:17:00 EDT, Route to Pharmacy Electronically, [facility], 167.6, cm, 03/23/23 10:29:00 EDT, Height, 97.8, kg, 04/29/22 14:30:00 EDT, Dry Weight Start Date: 05/17/23 Status: Ordered fluticasone 50 mcg/inh nasal spray 2 sprays, Nasal, Daily, in each nostril use opposite hnad for each nostril, # 16 Gm, 1 Refills, Maintenance, 10/28/21 15:32:00 EST, [facility], 2 sprays Nasal Daily,Instr:in each [...] Professional Member Role: PCP Address: Address: [address] [place] [address] Name: Michaela Castillo RN Position: [facility] RN Member Role: Primary Care Nurse Name: Leticia Barth RN Position: [facility] Onco RN Member Role: Primary Care Nurse Name: María Elena Dixon RN Position: [facility] RN Member Role: Primary Care Nurse Care Team Related Persons Name: ISAURO HARKINS Address: [address] [address] Name: AGNIESZKA MAURER Address: [address] [address]
--- OUTSIDE RECORDS SUMMARY | 2024-02-23 12:27 | XMS_ITS | Patient Health Record ---
Author Organization [facility] Address [address] [place] [address] Care Team Providers Care Litigation Claim Representative Name Role Phone Jovana Zapata Primary Care Provider Unavail able Black, Zaida Unavailable [phone] ALLERGIES Allergen (clinical drug ingredient) Drug/Non Drug Allergy documented on EMR Reaction Allergy Type Onset Date Status Levaquin stomach upset Drug Allergy Act douglas REASON FOR REFERRAL No Information MEDICATIONS Medication SIG (Take, Route, Frequency, Duration) Notes Start Date End Date Status Caltrate 600 Active Vitamin D3 Active Vitamin B-12 1000 MCG 1 tablet Orally On ce a day for 30 day(s) Active FLUoxetine HCl 20 MG 1 capsule Orally On ce a day for 30 day(s) Active Montelukast Sodium 10 MG 1 tablet Orally Once a day for 30 day(s) Not-Taking Tylenol PRN Active Fluticasone Furoate PRN Active Ativan 0.5 MG 1 tablet at bedtime as needed Orally Once a day PRN Active Omeprazole 20 MG 1 capsule 30 minutes before morning meal Orally Once a day for 30 day(s) Active Amoxicillin as needed Active amLODIPine Besylate 5 MG 1 tablet Orally Once a day for 30 day(s) Active Calcium Active Atorvastatin Calcium 40 MG 1 tablet Orally Once a day for 30 day(s) Active immodium PRN Active SOCIAL HISTORY Tobacco Use: Social History Observation Description Date Details (start date - stop date) Never Smoker NA - NA Sex Assigned At : Social History Observation Description Sex Assigned At Unknown Tobacco Use/Smoking Question Answer Notes Are you a: nonsmoker Additional Findings: Tobacco Non-User Current no n-smoker Alcohol Screen Question Answer Notes Did you have a drink containing alcohol in the p ast year? No Points 0 Interpretation Negative Tobacco use other than smoking: Question Answer Notes Are you an other tobacco user? 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 (044803977) VITAL SIGNS Height 5ft 6in in 11/09/2023 Weight 235 lbs 11/09/2023 BMI 37.93 kg/m2 11/09/2023 PROCEDURES Procedure Date Ordered Date Performed Result Body Sit e 05513-JXACEEO NAIL, 6 OR MORE 05/01/2023 N/A 71135-Pssxjobf Plate 05/01/2023 N/A 79733-QZNMNSX NAIL, 6 OR MORE 08/14/2023 N/A 50043-OUJIDBO NAIL, 6 OR MORE 11/09/2023 N/A Encounters Encounter Location Date Provider Diagnosis [address] [address] 05/01/2023 Zaida Black Tinea unguium B35.1 ; Ingrown nail L60.0 ; Pain in right toe(s) M79.674 and Pain in left toe(s) M79.[address] [address] 08/14/2023 Zaida Black Tinea unguium B35.1 ; Pain in right toe(s) M79.674 and Pain in left toe(s) M79.[address] [address] 11/09/2023 Zaida Black Tinea unguium B35.1 ; Pain in right toe(s) M79.674 ; Other hammer toe(s) (acquired), left foot M20.42 and Pain in left toe(s) M79.675 [facility] [address] [place] [address] [address] [place] [address] 02/05/2024 Zaidaelder Estrada [facility] [place] [address] [place] [address] 02/08/2024 Zaida Estrada ASSESSMENTS Encounter Date Diagnosis Assessment Notes Treatment Notes Treatment Clinical Notes 05/01/2023 Tinea unguium (ICD-10 - B35.1) 05/01/2023 Ingrown nail (ICD-10 - L60.0) 08/14/2023 Tinea unguium (ICD-10 - B35.1) 08/14/2023 Pain in right toe(s) (ICD-10 - M79.674) 11/09/2023 Tinea unguium (ICD-10 - B35.1) 11/09/2023 Pain in right toe(s) (ICD-10 - M79.674) 08/14/2023 Pain in left toe(s) (ICD-10 - M79.675) 05/01/2023 Pain in right toe(s) (ICD-10 - M79.674) 05/01/2023 Pain in left toe(s) (ICD-10 - M79.675) 11/09/2023 Other hammer toe(s) (acquired), left foot (ICD-10 - M20.42) 11/09/2023 Pain in left toe(s) (ICD-10 - M79.675) PLAN OF TREATMENT Pending Test Test Name Order Date 36041-IERMZWO NAIL, 6 OR MORE 04/21/2022 12538-BPPDCBO NAIL, 6 OR MORE 08/29/2022 24406-GCODBBF NAIL, 6 OR MORE 12/26/2022 13716-SABSUAQ NAIL, 6 OR MORE 05/01/2023 60856-SZOHLVY NAIL, 6 OR MORE 08/14/2023 90406-IRJORJD NAIL, 6 OR MORE 11/09/2023 20250-DPUIMKM NAIL, 6 OR MORE 04/22/2021 97292-Irtgchyq Plate 04/22/2021 56002-Xidkqcyd Plate 04/21/2022 46408-Atjzgisr Plate 05/01/2023 65306-Xaeueoug Plate Each Additional 91937-Smaolqhu Plate Each Additional Next Appt Details Provider Name:Zaida Estrada , 05/13/2024 03:45:00 PM, [address] [place], [address], Insurance Providers Payer Name Payer Address Payer Phone Subscriber Number Group Number Insured Name Patient Relationship to Insured Coverage Start Date Coverage End Date Medicare National Govt [facility] [address] [place] [address] [id number] Serena Sanabria Self - patient is the insured [employer] [address] [place] [address] [phone] [id number] Serena Sanabria Self - patient is the insured 2 MEDICAL (GENERAL) HISTORY Medical History History ICD Code Anxiety Arthritis Cataracts High blood pressure Osteoporosis Reflux ( GERD) Measles Mumps Chicken pox Joint implants/screws Infusions Surgical History Surgery Date(Month/Year) gall bladder 1983 total right knee replacement 2007 total left knee replacement 09/2019
--- OUTSIDE RECORDS SUMMARY | 2024-02-23 12:27 | XMS_ITS | Continuity of Care Document ---
Author Organization [facility] Sae lt Address [address] [place] [address]- Care Team Providers Care Antichecking Iron Worker Name Role Phone Edmond BRANDT, Wesley Kaur Primary Care Physician Encounter [facility] Date(s): 09/06/21 - 10/06/21 [facility] Adult [address] [place] [address]- Allergies, Adverse Reactions, Alerts Substance Reaction Severity [...] (oldterm) 12/01/01 Given 1Result Comment: [facility]: 8436-9752-21 2Result Comment: [facility]: 78729-488-38 3Result Comment: [07/11/2017] [facility]; 88929-185-04 HIGH DOSE 4Admin Note: H1N1 5Admin Note: recieved elsewhere Medications amLODIPine 5 mg oral tablet 1 tablet = 5 mg, By Mouth, Daily, # 90 tablet, 1 Refills, Maintenance, 06/02/21 17:26:00 EDT, [facility], 167.6, cm, 02/24/21 14:50:00 EDT, Height, 107.9, kg, 02/24/21 13:39:00 EDT, Dry Weight Start Date: 06/02/21 Status: Ordered atorvastatin 40 mg oral tablet 1 tablet, By Mouth, Daily, # 90 tablet, 1 Refills, [facility], 167.6, cm, 08/19/21 11:48:00 EST, [...] 02/22/21 14:32:00 EDT, Route to Pharmacy Electronically, [facility], Partial fill upon patient request [...] tablet, 0 Refills, Maintenance, 09/20/21 11:54:00 EST, [facility], 167.6, cm, 08/19/21 11:48:00 [...]
--- OUTSIDE RECORDS SUMMARY | 2024-02-23 12:27 | XMS_ITS | Continuity of Care Document ---
Author Organization [facility] Trace Sae lt Address [address] [place] [address]- Care Team Providers Care Telephone Lineworker Name Role Phone Edmond BRANDT, Wesley Kaur Primary Care Physician [facility]): 04/08/20 - 05/08/20 [facility] Adult [address] [place] [address]- [facility] Allergies, Adverse Reactions, Alerts Substance Reaction [...] (PPV23) (oldterm) 3/2/02 Given 1Result Comment: [07/11/2017] [facility]; 63516-019-18 HIGH DOSE 2Admin Note: H1N1 3Admin Note: recieved elsewhere Medications acetaminophen 325 mg oral tablet 650 mg, By Mouth, Every 6 hours, Refills 0, Maintenance, 09/19/19 11:55:00 EST Start Date: 09/19/19 Status: Ordered atorvastatin 40 mg oral tablet 1 tablet = 40 mg, By Mouth, Daily, # 90 tablet, 1 Refills, Soft Stop, 03/09/20 11:18:00 EDT, [facility], 167.6, cm, 09/19/19 7:55:00 EST, [...] 3 Refills, Maintenance, 01/10/20 8:38:00 EDT, [facility], 2 sprays Nasal Daily,Instr:in each [...]
--- OUTSIDE RECORDS SUMMARY | 2024-02-23 12:27 | XMS_ITS | Continuity of Care Document ---
Author Organization [facility] lt Address [address] [place] [address]- Care Team Providers Care Card Assembler Name Role Phone Kae PHOTOGRAPHIC EQUIPMENT MECHANIC, Jovana Ghosh Primary Care Physician Encounter [facility] [place] Date(s): 01/17/24 - 01/24/24 [facility] [address] [place] [address]- Encounter Diagnosis Hip pain, right(Discharge Diagnosis) - 01/17/24 Attending Physician: Serena Armendariz Allergies, Adverse Reactions, Alerts Substance Reaction Severity [...] pneumococcal 20-valent conjugate vaccine 5 02/13/23 Given [id number] 12y+ bivalent booster vax 6 08/12/22 Given [...] 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 Given 1Result Comment: [id number] 2Result Comment: [facility]-[id number] left upper deltoid 3Result Comment: [facility]: [id number] 4Result Comment: [07/11/2017] [facility]; [id number] HIGH DOSE 5Result Comment: [id number] 6Result Comment: [facility]-[id number] left lower deltoid 7Result Comment: [facility]: [id number] 8Admin Note: H1N1 9Admin Note: recieved elsewhere [...] 1 Refills, Maintenance, 09/04/23 15:15:00 EST, [facility], 167.6, cm, 09/04/23 14:35:00 EST, [...] Maintenance, 11/01/23 6:59:00EST, Route to Pharmacy Electronically, [facility], 167.6, cm, 09/04/23 14:35:00 EST, Height, 97.8, kg, 04/29/22 14:30:00 EDT, Dry [facility]... Start Date: 11/01/23 Status: Ordered fluticasone 50 mcg/inh nasal spray 2 sprays, Nasal, Daily, in each nostril use opposite hnad for each nostril, # 16 Gm, 1 Refills, Maintenance, 10/28/21 15:32:00 EST, [facility], 2 sprays Nasal Daily,Instr:in each [...] Dates Health Status Cl inical Service Informant Hip pain, right Discharge Diagnosis 01/17/24 Vital Signs Most recent to oldest [Reference Range]: 1 Height 167.6 cm (01/17/24 10:14 AM) Weight 113.2 kg (01/17/24 10:14 AM) Oxygen Saturation [94-100 %] 100 % (01/17/24 10:14 AM) Pulse Rate [55-90 bpm] 82 bpm (01/17/24 10:14 AM) Body Mass Index [18.5-24.99 kg/m2] 40.3 kg/m2 *>HHI* (01/17/24 10:14 AM) Blood Pressure [90-138/55-84 mm Hg] 126/ 48mm Hg (01/17/24 10:14 AM) Temperature [96.8-100.4 DegF] 97.7 DegF (01/17/24 10:14 AM) Mode of Delivery (Oxygen) Room air (01/17/24 10:14 AM) Blood pressure sites Arm, right (01/17/24 10:14 AM) Temperature Route Oral (01/17/24 10:14 AM) Weight Obtained Via Standing scale (01/17/24 10:14 AM) Social History Social History Type Response Smoking Status Never smoker entered on: 10/09/13 Sex Patient Care team information Care Team Personnel Name: Satnam BUNDY, Juliet Snyder Position: [facility] PCO Associate Professional Member Role: Primary Care Nurse Name: Jovana Pal [facility] Associate Professional Member Role: PCP Address: Address: [address] [place] [address] Name: Michaela Castillo RN Position: [facility] RN Member Role: Primary Care Nurse Name: Leticia Barth RN Position: [facility] Onco RN Member Role: Primary Care Nurse Name: Stacy Garcia RN Position: [facility] LEIGH Nurse Member Role: Primary Care Nurse Name: María Elena Dixon RN Position: [facility] RN Member Role: Primary Care Nurse Care Team Related Persons Name: ISAURO HARKINS Address: [address] [address] Name: AGNIESZKA MAURER Address: [place] [address]
--- OUTSIDE RECORDS SUMMARY | 2024-02-23 12:27 | XMS_ITS | Patient Health Record ---
Author Organization [facility] Address [address] [place] [address] Care Team Providers Care Motor Generator Set Operator Name Role Phone Edmond BRANDT, Wesley Primary Care Provider Chin Alford Unavailable [phone] ALLERGIES No Known Allergies REASON FOR REFERRAL No Information MEDICATIONS Medication SIG (Take, Route, Frequency, Duration) Notes Start Date End Date Status Atorvastatin Calcium 40 MG Oral for 90 Active amLODIPine Besylate 5 MG Oral for 90 Active FLUoxetine HCl 20 MG Oral for 90 Active Dicyclomine HCl 10 MG 1-2 Orally Q 6 vilma rs as needed for abdominal cramps--you can also try the Dicyclomine before a meal to see if that would help for 90 days 10/05/2021 Active Omeprazole Active Vitamin D Active buPROPion HCl ER (XL) 150 MG Oral for 90 Active Vitamin B12 100 MCG as directed Orally Active Dicyclomine HCl 10 MG 1 or 2 Orally Q 6 hours prn abdominal cramps/bloating/discomfor t--you can also use it before meals to prevent any symptoms after you eat for 90 days 10/21/2021 Active Valsartan 160 MG Oral for 90 A ctive Amoxicillin 250 MG 1 capsule Orally as needed for dentist due to knee surgery Active LORazepam Active PROzac Active IMMUNIZATIONS Vaccine Route Administration Date Status Comme nts Influenza Unknown 08/02/2021 Administered SOCIAL HISTORY Sex Assigned At : Social History Observation Description Sex Assigned At Unknown Alcohol Screen Question Answer Notes Did you have a drink containing alcohol in the p ast year? No Points 0 Interpretation Negative PROBLEMS Problem Type ICD Code Onset Dates Problem Status W/U Status Risk SNOMED Code Notes Problem Anorexia (R63.0) Active confirmed 43467 006 Problem Irritable bowel syndrome with both constipation and diarrhea (K58.2) Active confirmed 25039101 Encounters Encounter Location Date Provider Diagnosis [facility] [address] [place] [address] 02/08/2024 Chin Garcia [facility] [address] [place] [address] 02/19/2024 Chin Garcia Irritable bowel syndrome with both constipation and diarrhea K58.2 ASSESSMENTS Encounter Date Diagnosis Assessment Notes Treatment Notes Treatment Clinical Notes 02/19/2024 Irritable bowel syndrome with both constipation and diarrhea (ICD-10 - K58.2) PLAN OF TREATMENT Next Appt Details Provider Name:Chin Garcia , 06/14/2024 01:40:00 PM, [address], [address], [place], [address], Insurance Providers Payer Name Payer Address Payer Phone Subscriber Number Group Number Insured Name Patient Relationship to Insured Coverage Start Date Coverage End Date MEDICARE OF [place] [address] [place] [address] [id number] HARKINSBRIANNA Self - patient is the insured FOR LIFE [address] [place] [address] [phone] [id number] TORINBRIANNA Self - patient is the insured MEDICAL (GENERAL) HISTORY Medical History History ICD Code Colonoscopy in 2008 was negative except for diverticulosis Upper endoscopy in 2007 was negative except for a small hiatal hernia and minimal gastritis--biopsies were negative for H. pylori Anxiety and depression Hypertension Colonoscopy in 2015 at [facility] was negative, without any sign of polyps no inflammatory bowel disease--colon biopsies were negative for microscopic colitis Upper endoscopy in 2018 at [facility] was negative except for a hiatal hernia--esophageal biopsies were negative for eosinophilic esophagitis-gastric and duodenal biopsies were not obtained Osteoporosis She reports that she had neg ative celiac disease laboratories in approximately 2019 Hyperlipidemia Irritable bowel syndrome Surgical History Surgery Date(Month/Year) Right knee replacement in 2007 Cholecystectomy Left knee Bilateral eye surgery
[2024-02-23 12:32] LABS: Troponin-I High Sensitivity < 2.7 ng/L (<3.5-17.0)
[2024-02-23 16:33] LABS: Appearance Urine Clear; Color Urine Yellow; Glucose Urine UA Negative (Negative); Leukocyte Esterase Urine Small (1+) (Negative); Nitrite Urine Negative (Negative); PH 5.5 (5.0-9.0); UMIC TRIGGER UACC YES; Urine Blood Negative (Negative); Urine Ketones 15 mg/dL (Negative); Urine Protein Trace mg/dL (Neg-Trace)
[2024-02-23 16:38] LABS: Bacteria Urine None Seen (None Seen); Hyaline Casts Urine 0-2 /LPF (0-2); RBC Urine 0-2 /HPF (0-2); UACC Culture Trigger YES
== END 2024-02-23 18:09 | disposition left against medical advice (07) ==
PROVIDERS: Physician Assistant Medical; Emergency Provider Emergency Medicine; PCP Nurse Practitioner Family
DX: R10.13 Epigastric pain (principal); I10 Essential (primary) hypertension; E78.5 Hyperlipidemia, unspecified; Z79.899 Other long term (current) drug therapy
CPT/HCPCS: 36415; 80048; 80076; 81001; 83690; 83735; 84484; 85025; 87086; 93005; 99283

== ENCOUNTER → 2024-02-23 11:13 | Outpatient (BNV) | payer MEDICARE, OTHER, SELFPAY | PROVIDERS: Emergency Provider Emergency Medicine; PCP Nurse Practitioner Family; Visit Provider Internal Medicine Cardiovascular Disease | DX: R10.13 Epigastric pain (principal) | CPT/HCPCS: 93010 ==

== ENCOUNTER 2024-05-23 14:30 | Outpatient (AMB) | payer MEDICARE, OTHER, SELFPAY ==
--- NOTE | 2024-05-23 14:38 | MHC.OFFWIV ---
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 Fell and hit head. Happened Monday afternoon Patient Tobacco Use Status: Never used Tobacco Allergies No Known Allergies* Allergy (Uncoded 05/23/24 14:39) Unknown Do you need a note to return to daycare/school/sports/work: No HPI HPI Comments History of Present Illness Details Patient is a 78-year-old female who fell and hit her head 5 days ago complaining of a lingering headache. She states she fell from the 2nd to last stair because her left foot gave out, she hit her head but did not lose consciousness. She states she has been taking Tylenol but her headache is not going away. She denies any changes in her vision or hearing however she states the area is still very tender when she pushes on it. She has a little bit of associated nausea but no actual vomiting and light sensitivity and sound sensitivity. [facility] Medical History History of hyperlipidemia HTN (hypertension) Osteoporosis Surgical History History of cholecystectomy History of total bilateral knee replacement Social History Alcohol intake: never Patient Tobacco Use Status: Never used Tobacco Review of Systems Const All systems reviewed & are unremarkable except as noted in HPI and below Physical Exam Vital Signs: Last Vital Signs Temp 98.4 F 05/23/24 14:41 Pulse 91 05/23/24 14:41 BP 132/66 05/23/24 14:41 Pulse Ox 97 05/23/24 14:41 Oxygen Delivery Method Room Air 05/23/24 14:41 BMI result Body Mass Index 40.2 Const General: cooperative, healthy appearing, comfortable, no acute distress and well developed Orientation/consciousness: patient oriented x3 Limitations: no limitations HEENT Head: Yes normal to inspection Ears: hearing grossly normal bilaterally General nose exam: Normal external nose present Face and sinus: Yes normal facial exam Eyes General: appearance normal, both eyes and all related structures Neck Neck: Yes normal visual inspection and Yes full ROM Resp Effort & Inspection: normal respiratory effort and able to speak in complete sentences Skin General skin exam: no rashes or lesions noted Neuro General: patient oriented x3 Extrem General: Yes normal to inspection Assessment & Plan Assessment & Plan (1) Concussion: Code(s): S06.0XAA - Concussion with loss of consciousness status unknown, initial encounter Qualifiers: Encounter type: initial encounter Loss of consciousness presence/duration: without LOC Qualified Code(s): S06.0X0A - Concussion without loss of consciousness, initial encounter Plan: As headache does not go away with using Tylenol and has been persistent for 5 days, we will send patient to emergency department, called [facility] ED with expect. (2) Intractable post-traumatic headache: Code(s): G44.301 - Post-traumatic headache, unspecified, intractable Qualifiers: Headache chronicity pattern: acute headache Qualified Code(s): G44.311 - Acute post-traumatic headache, intractable Plan: As headache does not go away with using Tylenol and has been persistent for 5 days, we will send patient to emergency department, called [facility] ED with expect. Plan As headache does not go away with using Tylenol and has been persistent for 5 days, we will send patient to emergency department, called [facility] ED with expect. Coding Level of Care Code New Pt Level 5 (13084) Diagnoses Concussion without loss of consciousness, initial encounter S06.0X0A Encounter type: initial encounter Loss of consciousness presence/duration: without LOC Intractable acute post-traumatic headache G44.311 Headache chronicity pattern: acute headache
[2024-05-23 14:41] VITALS: BP 132/66; PULSE 91; TEMP 36.9; O2SAT 97; BMI 40.2
== END 2024-05-23 15:11 | disposition home or self-care (01) ==
PROVIDERS: PCP Nurse Practitioner Family; Visit Provider Physician Assistant
DX: S06.0X0A Concussion without loss of consciousness, initial encounter (principal); G44.311 Acute post-traumatic headache, intractable
CPT/HCPCS: 99204

== ENCOUNTER 2024-05-23 15:31 | Emergency (ER) | payer MEDICARE, OTHER, SELFPAY ==
--- NOTE | ~2024-05-23 | CT_ITS ---
EXAMINATION: CT HEAD WITHOUT CONTRAST CLINICAL INFORMATION: fall +right sided HS, persistent CABRERA COMPARISON: None. TECHNIQUE: Contiguous axial imaging was performed from the skull base to vertex without intravenous administration of contrast. Coronal and sagittal reformatted images are performed at the CT scanner. This CT examination was performed using dose optimization techniques as appropriate, variously including the following: *Automated exposure control *Adjustment of mA and/or kV according to patient size (this includes techniques or standardized protocols for targeted exams where dose is matched to indication/reason for exam; i.e. extremities or head) *Use of iterative reconstruction technique DLP: 641 mGy-cm. FINDINGS: There is no evidence of acute intracranial hemorrhage or territorial infarction. No abnormal mass-effect or midline shift is seen. Jimenez to white matter differentiation is well preserved. No extra-axial fluid collections are identified. There is generalized global volume loss. There is mild prominence of the ventricles and the sulci . There is mild hypodensity of the periventricular white matter due to chronic small vessel ischemic disease. There are vascular calcifications of the internal carotid arteries bilaterally. There is no osseous abnormality. The mastoid air cells and visualized portions of the paranasal sinuses are well-aerated. CT/CT head/brain wo IV con IMPRESSION: No acute intracranial pathology. Electronically signed by: Magen Duran MD 05/23/2024 05:04 PM EDT
[2024-05-23 15:53] VITALS: BP 136/54; PULSE 74; RESP 16; TEMP 36.4; O2SAT 97; BMI 40.1
--- NOTE | 2024-05-23 15:56 | ED_ITS ---
HPI - Headache General Chief Complaint: Headache Stated Complaint: fell 05/18 hit head headache sent from Time Seen by Provider: 05/23/24 17:14 Source: patient Mode of arrival: ambulatory Limitations: no limitations History of Present Illness ED Provider: MITCH DEWITT PA-C HPI Narrative: 78 female with pmhx significant for HTN and HDL presents to the ED today for evaluation of right-sided headache s/p mechanical fall occurring on Monday (5 days ago). She reports missing the bottom step while going down her stairs and falling onto her right side, striking the right side of her head. She did not lose consciousness. Denies anticoagulation. She was not medically evaluated at that time. Reports persistent headache since the fall. She has been taking Tylenol at home with minimal relief. She was evaluated at urgent care today and advised to come to the ED for imaging. Reports intermittent nausea without vomiting. Denies dizziness, vision changes, neck pain. No other concerns at this time. Related Data Home Medications ?Medication ?Instructions ?Recorded ?Confirmed cholecalciferol (vitamin D3) 1,250 1,250 mcg PO QWEEK 07/14/20 mcg (50,000 unit) capsule fluoxetine 10 mg capsule 10 mg PO DAILY 07/14/20 lorazepam 0.5 mg tablet 0.5 mg PO BEDTIME PRN 07/14/20 omeprazole 20 mg capsule,delayed 20 mg PO DAILY 07/14/20 release vitamin B complex (B 1 tab PO DAILY 07/14/20 Complex-Vitamin B12 tablet) calcium carbonate (Calcium 500) 500 mg PO DAILY 08/05/20 amlodipine 5 mg tablet 5 mg PO DAILY 05/23/24 atorvastatin 40 mg tablet 40 mg PO DAILY 05/23/24 famotidine 40 mg tablet 40 mg PO BID 05/23/24 quetiapine 25 mg tablet 25 mg PO BEDTIME 05/23/24 valsartan 160 mg tablet 160 mg PO DAILY 05/23/24 Previous Rx's ?Medication ?Instructions ?Recorded arm brace (Wrist Brace) #1 ea 09/17/20 [id number] 250 1 tab PO Q6H PRN headache #10 tabs 05/23/24 mg-250 mg-65 mg tablet (Excedrin Migraine) diphenhydramine HCl 25 mg capsule 50 mg (2 x 25 mg) PO Q8H PRN 05/23/24 (Benadryl) nausea and vomiting #10 caps Allergies Allergy/AdvReac Type Severity Reaction Status Date / Time No Known Allergies Allergy Verified 05/23/24 15:56 Review of Systems Review of Systems: Constitutional: No fever, chills, fatigue, night sweats, weight changes ENT/Mouth: No ear pain, hearing loss, nasal congestion, sinus pain, rhinorrhea, sore throat Eyes: No eye pain, swelling, redness, vision changes, discharge Cardio: No chest pain, palpitations, WAY, orthopnea, peripheral edema Pulm: No SOB, cough, sputum, wheezing, dyspnea, hemoptysis GI: No nausea, vomiting, hematemesis, abdominal pain, diarrhea, constipation, hematochezia, melena : No irregular bleeding, dysuria, frequency, urgency, hesitancy, hematuria, flank pain, urinary flow changes, urinary incontinence or retention MSK: No back pain, neck pain, joint pain, myalgias Skin: No lesions, rashes Neuro: No weakness, numbness, paresthesias, LOC, dizziness, +headache Psych: No anxiety/panic, depression, SI/HI, AH/VH All other systems reviewed and are negative. [facility] Past Medical History Attestation statement: The following information was validated with the patient. Source: old records reviewed and nursing notes reviewed Medical History Osteoporosis History of hyperlipidemia HTN (hypertension) Surgical History History of cholecystectomy History of total bilateral knee replacement Social History Social History Alcohol intake: never Patient Tobacco Use Status: Never used Tobacco Advance Directives: No Advance Directives Information Provided: No Physical Exam Vital Signs: Vital Signs: Last Vital Signs Temp 97.8 F 05/23/24 17:24 Pulse 78 05/23/24 17:24 Resp 16 05/23/24 17:24 BP 146/73 H 05/23/24 17:24 Pulse Ox 98 05/23/24 17:24 O2 Del Method Room Air 05/23/24 17:24 BMI result Body Mass Index 40.1 hypertensive, otherwise wnl. Const: General: cooperative, healthy appearing, comfortable and no acute distress Orientation/consciousness: patient oriented x3 Limitations: no limitations HEENT: Head: Yes normal to inspection, Yes No palpable skull fracture present, Yes normocephalic, Yes atraumatic, No Mayer's sign, No raccoon eyes and No periorbital ecchymosis Eyes: General: appearance normal, both eyes and all related structures Conjunctivae: conjunctivae normal Sclerae: sclerae normal Pupils: Equal, round and reactive pupils present Neck: Other: no midline cervical spinous tenderness or step off deformity Neck: Yes normal visual inspection and Yes no meningeal signs Resp: Effort & Inspection: normal respiratory effort and able to speak in complete sentences Auscultation: clear to auscultation bilaterally Cardio: Rate: regular rate Rhythm: regular rhythm Skin: General skin exam: no rashes or lesions noted Neuro: General: patient oriented x3, gait normal, tone normal, no meningeal signs and no focal motor deficits Cranial nerves: Yes Equal, round and reactive pupils present Gait exam (Neuro): Normal gait present Motor exam (neuro): 5/5 motor strength present throughout and Pronator motor function not present NIH Stroke Scale Internal: Initial- Upon Arrival Time: 17:28 Level of Consciousness: Alert Level of Consciousness Questions: Answers both questions correctly Level of Consciousness Commands: Performs both tasks correctly Best Gaze: Normal Visual: No visual loss Facial Palsy: Normal Motor Arm (Right): No drift Motor Arm (Left): No drift Motor Leg (Right): No drift Motor Leg (Left): No drift Course Course Course Narrative: This is a Rapid Medical Examination (RME) performed by Mini Dewitt PA-C in triage. Full HPI, ROS, assessment and treatment plan per primary provider in the Main ED. 78 yo female here for eval of right sided headache s/p mechanical fall on Monday (5 days ago). reports missing the bottom step while going down her stairs and falling onto her right side. Reports striking the right side her head. No LOC. Not on anticoagulation. She was not evaluated at that time. Reports persistent headache since fall. Seen at today and advised to come to the ED for imaging. +intermittent nausea w/o vomiting. denies dizziness, vision changes, neck pain. + exam nonfocal. perrla. no palpable skull fracture. Plan: ct head ordered Reevaluation(s) Reevaluation #1: 1771-- CT head brain unremarkable. her history/ exam findings are consistent with concussion. will send excedrky migraine to pharmacy. Patient has remained stable throughout ED visit today. Discussed worrisome signs and symptoms and when to return to the ED. All questions answered at this time. Patient is agreeable with disposition and stable for discharge. Medical Decision Making Medical Decision Making MDM Narrative: 78 female with pmhx significant for HTN and HDL presents to the ED today for evaluation of right-sided headache s/p mechanical fall occurring on Monday (5 days ago). Patient is slightly hypertensive to 46/73. Vitals otherwise WNL. She is nontoxic appearing in no acute distress. A&O x3. Exam is nonfocal. PERRLA. Cerebellum intact. No palpable skull fracture. She is ambulating with steady gait. No midline cervical spinous tenderness or step-off deformity. This patient presents with a headache most consistent with concussion. Differential diagnosis includes migraine vs tension type headache. No headache red flags. Neurologic exam without evidence of meningismus. No focal neurologic findings. Presentation not consistent with acute intracranial bleed including SAH (lack of risk factors, headache history). Presentation not consistent with acute STERILISATION TECHNICIAN infection including meningitis or brain abscess. Temporal arteritis unlikely, as is acute angle closure glaucoma given history and physical findings. Presentation not consistent with other acute, emergent causes of headache at this time. Plan to treat symptomatically with pain medication. No indication for LP at this time. Plan: ct head Differential Diagnosis Differential Diagnoses: The differential diagnosis associated with the presentation includes as above. Admission/Observation Not indicated Independent Interpretation I performed an independent interpretation of an: CT Scan Interpretation: CT head/brain without bleed, agree with radiologist's interpretation. Radiology Impression Discussion of test interpretation with radiology: I have reviewed the radiologist's reading. Radiologist Impression: EXAMINATION: CT HEAD WITHOUT CONTRAST CLINICAL INFORMATION: fall +right sided HS, persistent CABRERA COMPARISON: None. TECHNIQUE: Contiguous axial imaging was performed from the skull base to vertex without intravenous administration of contrast. Coronal and sagittal reformatted images are performed at the CT scanner. This CT examination was performed using dose optimization techniques as appropriate, variously including the following: *Automated exposure control *Adjustment of mA and/or kV according to patient size (this includes techniques or standardized protocols for targeted exams where dose is matched to indication/reason for exam; i.e. extremities or head) *Use of iterative reconstruction technique DLP: 641 mGy-cm. FINDINGS: There is no evidence of acute intracranial hemorrhage or territorial infarction. No abnormal mass-effect or midline shift is seen. Jimenez to white matter differentiation is well preserved. No extra-axial fluid collections are identified. There is generalized global volume loss. There is mild prominence of the ventricles and the sulci . There is mild hypodensity of the periventricular white matter due to chronic small vessel ischemic disease. There are vascular calcifications of the internal carotid arteries bilaterally. There is no osseous abnormality. The mastoid air cells and visualized portions of the paranasal sinuses are well-aerated. CT/CT head/brain wo IV con IMPRESSION: No acute intracranial pathology. Electronically signed by: Magen Duran MD 05/23/2024 05:04 PM EDT RP External Record Review External record reviewed: Inpatient record Prescription Management I considered prescription management with: Pain Medication Social Determinants Patient?s care significantly limited by Social Determinants of Health including: Other Social Determinant of Health Critical Care Time Critical Care Time Critical Care Time: No Discharge Plan Discharge Clinical Impression: Concussion Qualifiers: Encounter type: initial encounter Loss of consciousness presence/duration: without LOC Qualified Code(s): S06.0X0A - Concussion without loss of consciousness, initial encounter Patient Disposition: Home, Self-Care Instructions: Concussion (ED) Additional Instructions: You have been evaluated in the Emergency Department today for headache. Your evaluation did not show evidence of medical conditions requiring emergent intervention at this time, and your pain improved with medication in the ED. The CT scan of your head is normal. You likely have a concussion. I want you to take the following 2 medications together every 6 hours as needed for headache, nausea or vomiting. ? - Benadryl 50 mg - Excedrin migraine After you take these medications, lie down in a dark quiet room and try to fall asleep. ?These medications will make you sleepy, do not drive or work after taking these medications. Please follow up with your primary care physician within two days. Return to the Emergency Department if you experience worsening or uncontrolled pain, vision changes, recurrent vomiting, difficulty with normal activities, abnormal behavior, difficulty walking, numbness, weakness, or any other concerning symptoms. Prescriptions: New diphenhydramine HCl [Benadryl] 25 mg capsule 50 mg PO Q8H PRN (Reason: nausea and vomiting) Qty: 10 0RF Excedrin Migraine 250-250-65 mg tablet 1 tab PO Q6H PRN (Reason: headache) Qty: 10 0RF No Action amlodipine 5 mg tablet 5 mg PO DAILY valsartan 160 mg tablet 160 mg PO DAILY atorvastatin 40 mg tablet 40 mg PO DAILY quetiapine 25 mg tablet 25 mg PO BEDTIME famotidine 40 mg tablet 40 mg PO BID vitamin B complex [B Complex-Vitamin B12] Tablet 1 tab PO DAILY fluoxetine 10 mg capsule 10 mg PO DAILY omeprazole 20 mg capsule,delayed release(DR/EC) 20 mg PO DAILY lorazepam 0.5 mg tablet 0.5 mg PO BEDTIME PRN cholecalciferol (vitamin D3) 1,250 mcg (50,000 unit) capsule 1,250 mcg PO QWEEK calcium carbonate [Calcium 500] 500 mg calcium (1,250 mg) tablet 500 mg PO DAILY (DME) Wrist Brace Misc See Rx Instructions .MEDSUPPLY Qty: 1 0RF Rx Instructions: comfort form wrist/thumb rt m Interventions: ED Discharge Assessment Last Done: 05/23/24 17:24 Discharge Date/Time: 05/23/24 17:27 Print Language: Frisian
[2024-05-23 17:16] VITALS: BP 146/73; PULSE 78; RESP 16; TEMP 36.6; O2SAT 98
[2024-05-23 17:24] VITALS: BP 146/73; PULSE 78; RESP 16; TEMP 36.6; O2SAT 98
== END 2024-05-23 17:27 | disposition home or self-care (01) ==
LOC: HO.ED 17:24
PROVIDERS: Emergency Provider Emergency Medicine; PCP Nurse Practitioner Family
DX: S06.0X0A Concussion without loss of consciousness, initial encounter (principal); W10.8XXA Fall (on) (from) other stairs and steps, initial encounter; E78.5 Hyperlipidemia, unspecified; I10 Essential (primary) hypertension; Y93.89 Activity, other specified; Y92.9 Unspecified place or not applicable; Y99.9 Unspecified external cause status; Z79.02 Long term (current) use of antithrombotics/antiplatelets; Z79.899 Other long term (current) drug therapy
CPT/HCPCS: 70450; 99282; 99284

== ENCOUNTER 2024-08-25 18:55 | Emergency (ER) | payer MEDICARE, OTHER, SELFPAY ==
--- NOTE | ~2024-08-25 | CT_ITS ---
EXAMINATION: CT ABDOMEN AND PELVIS WITH CONTRAST CLINICAL INFORMATION: Left lower quadrant abdominal pain. Tenderness. COMPARISON: Most recent CT abdomen/pelvis dated 08/21/2021. TECHNIQUE: Multidetector volumetric images were obtained from the superior aspect of the liver through the pubic symphysis following administration 100 mL of Omnipaque 350 intravenous contrast. Sagittal and coronal reformatted images were obtained on the technologist's workstation. Oral contrast: No This CT examination was performed using dose optimization techniques as appropriate, variously including the following: *Automated exposure control *Adjustment of mA and/or kV according to patient size (this includes techniques or standardized protocols for targeted exams where dose is matched to indication/reason for exam; i.e. extremities or head) *Use of iterative reconstruction technique DLP: 848 mGy-cm FINDINGS: LUNG BASES: The visualized lung bases are unremarkable. LIVER, GALLBLADDER, AND BILIARY TREE: The liver is normal in size, shape, and attenuation. No focal hepatic lesion or biliary ductal dilatation is present. Status post cholecystectomy. PANCREAS: Unremarkable. SPLEEN: Unremarkable. ADRENAL GLANDS: Unremarkable. KIDNEYS AND URETERS: The kidneys are normal in size, shape, and attenuation. No hydronephrosis, hydroureter, or calculi seen. No perinephric stranding. BLADDER: Partially distended and unremarkable. GASTROINTESTINAL TRACT: No small or large bowel obstruction. Sigmoid diverticulosis without evidence of acute diverticulitis. No bowel wall thickening or inflammatory change. Appendix is not well seen; however, no right lower quadrant inflammatory change to suggest acute appendicitis. PERITONEAL CAVITY: No intra-abdominal free air or free fluid. No intra-abdominal mass or organized fluid collection/abscess formation. ABDOMINAL WALL: No significant hernia is appreciated. LYMPH NODES: No lymphadenopathy. VASCULAR: Unremarkable. PELVIC VISCERA: The uterus and adnexa are unremarkable. OSSEOUS STRUCTURES: No acute osseous abnormality. CT/CT abdomen pelvis w IV con IMPRESSION: 1. Diverticulosis without evidence of acute diverticulitis. No small or large bowel obstruction. Appendix is not well seen; however, no right lower quadrant inflammatory change to suggest acute appendicitis. 2. No intra-abdominal mass, lymphadenopathy, or ascites. Fleischner guidelines were followed. Electronically signed by: Murali Gomez MD 08/25/2024 11:49 PM [facility]
[2024-08-25 19:02] VITALS: BP 150/72; PULSE 79; O2SAT 98
[2024-08-25 19:19] VITALS: BP 155/51; PULSE 79; TEMP 36.5; O2SAT 98; BMI 39.1
--- NOTE | 2024-08-25 20:57 | ED_ITS ---
HPI - General Adult General Chief complaint: Abdominal Pain Stated complaint: abd pain x2 weeks Time Seen by Provider: 08/25/24 20:57 History of Present Illness ED Provider: Thomas BHAKTA narrative: The patient is a 78-year-old woman who says that she has not felt well for the last 2 weeks. She says her symptoms began after eating some Daryn food. She thought she might have had food poisoning at that time. She had some loose stools and some lower abdominal discomfort. She continued to have lower abdominal discomfort for a couple of days and went to an urgent care center where she was advised to come to the emergency room if she felt significantly worse. She says that she also follow up with the regular doctor a few days ago and had a negative urinalysis. She says that for a few days she thought she might be getting better. She felt that her appetite was improving until today when she felt that her appetite was very poor and she gagged on food. She says she was able to drink lot of Gatorade but could not eat. This evening she felt very weak and ultimately called an ambulance. She says that she has pain across her lower abdomen that is worse after urination. Does not feel any actual burning with urination. No frequency or urgency. No flank pain. No fever, sweats, chills. She has not had any vomiting. She has had intermittent loose stools but not joycelyn diarrhea. She has no history of abdominal surgeries. No chest pain or shortness of breath. However she does have a bit of a headache. Related Data Home Medications ?Medication ?Instructions ?Recorded ?Confirmed cholecalciferol (vitamin D3) 1,250 1,250 mcg PO QWEEK 07/14/20 mcg (50,000 unit) capsule fluoxetine 10 mg capsule 10 mg PO DAILY 07/14/20 lorazepam 0.5 mg tablet 0.5 mg PO BEDTIME PRN 07/14/20 omeprazole 20 mg capsule,delayed 20 mg PO DAILY 07/14/20 release vitamin B complex (B 1 tab PO DAILY 07/14/20 Complex-Vitamin B12 tablet) calcium carbonate (Calcium 500) 500 mg PO DAILY 08/05/20 amlodipine 5 mg tablet 5 mg PO DAILY 05/23/24 atorvastatin 40 mg tablet 40 mg PO DAILY 05/23/24 famotidine 40 mg tablet 40 mg PO BID 05/23/24 quetiapine 25 mg tablet 25 mg PO BEDTIME 05/23/24 valsartan 160 mg tablet 160 mg PO DAILY 05/23/24 Previous Rx's ?Medication ?Instructions ?Recorded arm brace (Wrist Brace) #1 ea 09/17/20 aknejpy-kltdbuuayzwcu-ybhmzujc 250 1 tab PO Q6H PRN headache #10 tabs 05/23/24 mg-250 mg-65 mg tablet (Excedrin Migraine) diphenhydramine HCl 25 mg capsule 50 mg (2 x 25 mg) PO Q8H PRN 05/23/24 (Benadryl) nausea and vomiting #10 caps Allergies Allergy/AdvReac Type Severity Reaction Status Date / Time No Known Allergies Allergy Verified 08/25/24 19:21 Review of Systems 2 Review of Systems: Yes all other systems are reviewed and are negative [facility] Past Medical History Medical History Osteoporosis History of hyperlipidemia HTN (hypertension) Surgical History History of cholecystectomy History of total bilateral knee replacement Social History Social History Alcohol intake: never Patient Tobacco Use Status: Never used Tobacco Smoked in Last 30 Days: No Use of substances other than those prescribed or required for medical reasons: No Advance Directives: No Advance Directives Information Provided: No Physical Exam ED Vital Signs: Vital Signs - 24 hr 08/25/24 19:19 08/25/24 21:54 08/25/24 23:11 Temperature 97.7 F 97.8 F 98.4 F Pulse Rate 79 74 76 Respiratory Rate 12 18 Blood Pressure 155/51 H 140/50 H 118/45 L Pulse Oximetry 98 96 98 Oxygen Delivery Method Room Air Room Air Room Air 08/25/24 23:56 08/26/24 01:56 Temperature 98.2 F Pulse Rate 74 Respiratory Rate 12 12 Blood Pressure 122/68 Pulse Oximetry 98 Oxygen Delivery Method BMI result Body Mass Index 39.1 Const Other: The patient is awake and alert. She is pleasant and cooperative. Her BMI is 39.1. She looks slightly pale but does not seem in acute distress or toxic. HENNY Head: Yes normal to inspection Face and sinus: Yes normal facial exam Mouth: Normal oral and palatal mucosa present and moist mucous membranes Neck Neck: Yes no JVD Resp Effort & Inspection: normal respiratory effort Auscultation: clear to auscultation bilaterally Cardio Rate: regular rate Rhythm: regular rhythm Heart sounds: S1 normal heart sound present, S2 normal heart sound present and Murmur heart sound present (I think there is a faint holosystolic murmur.) GI Other: The abdomen is soft. There is tenderness in the left lower quadrant. Skin Other: Skin is pale and dry Neuro Other: The patient is awake and alert with a normal mental status. Cranial nerves are grossly intact. She moves her extremities normally Extrem Other: No peripheral edema. No calf swelling or tenderness. No asymmetry. Medications Administered Discontinued Medications Generic Name Dose Route Start Last Admin Trade Name Freq PRN Reason Stop Dose Admin Sodium Chloride 1,000 mls @ 999 mls/hr 08/25/24 21:30 08/25/24 23:56 Ns IV 08/25/24 22:30 Infused .Q1H1M ANTONELLA Infusion Acetaminophen 1,000 mg in 100 mls @ 400 mls/hr 08/25/24 22:30 08/25/24 22:58 Ofirmev IV 08/25/24 22:44 Infused ONCE ONE Infusion Iohexol 100 ml 08/25/24 23:35 08/25/24 23:35 Iohexol 350 Mg/Ml 100 Ml Infus..Btl IV 08/25/24 23:36 100 ml ONCE ONE Administration Metoclopramide HCl 10 mg 08/25/24 22:30 08/25/24 22:39 Metoclopramide Hcl 10 Mg/2 Ml Vial IVPUSH 08/25/24 22:31 10 mg ONCE ONE Administration Medical Decision Making Medical Decision Making [facility] Narrative: Patient is a 78-year-old woman who presents with lower abdominal pain. She was tender in left lower quadrant. Labs are unremarkable. CT of the abdomen and pelvis does not show any acute process. The patient was treated symptomatically with IV fluids, ketorolac, and metoclopramide. She seemed to feel better. She was reassured and discharged. Lab Data 08/25/24 21:37 08/25/24 21:37 Labs: Lab Results 08/25/24 Range/Units 21:37 WBC 5.0 (4.8-10.8) X10*3/uL RBC 3.10 L (4.20-5.50) X10*6/uL Hgb 10.1 L (12.0-16.0) g/dl Hct 28.3 L (37.0-47.0) % MCV 91.3 (80.0-98.0) fL MCH 32.6 (27.0-33.0) pg MCHC 35.7 H (31.0-35.0) g/dl RDW 13.4 (11.0-16.0) % Plt Count 183 (160-400) X10*3/uL MPV 9.4 (9.4-12.3) fL Immature Gran % (Auto) 0.2 (0.0-0.4) % Neut % (Auto) 66.9 (45-73) % Lymph % (Auto) 22.0 (20-40) % [place] % (Auto) 8.9 (2-11) % Eos % (Auto) 1.2 (0-4) % Baso % (Auto) 0.8 (0-2) % Lymph # (Auto) 1.1 L (1.2-4.9) X10*3/uL [place] # (Auto) 0.4 (0.1-1.2) X10*3/uL Eos # (Auto) 0.1 (0.0-0.4) X10*3/uL Baso # (Auto) 0.0 (0.0-0.2) X10*3/uL Abs Immat Gran (auto) 0.01 (0.00-0.03) X10*3/uL Absolute Neuts (auto) 3.3 (2.0-8.3) x10*3/uL Absolute Nucleated RBC 0.000 (0.0-0.012) X10*3/uL Nucleated RBC % (auto) 0.0 (0.0-0.2) /100WBC Sodium 129 L (135-145) mmol/L Potassium 4.0 (3.3-5.1) mmol/L Chloride 100 (96-108) mmol/L Carbon Dioxide 21 L (22-29) mmol/L Anion Gap 12 (12-20) BUN 18 H (9-16) mg/dL Creatinine 1.19 (0.5-1.4) mg/dL Estim Creat Clear Calc 50.5 Estimated GFR 44 Random Glucose 98 (60-115) mg/dL Calcium 9.4 (8.4-10.2) mg/dL Total Bilirubin 0.5 (0.0-1.0) mg/dL Direct Bilirubin 0.2 (0.0-0.5) mg/dL AST 18 (5-31) U/L ALT 11 (0-31) U/L Alkaline Phosphatase 54 (39-117) U/L C-Reactive Protein 0.12 (< or = 0.50) mg/dL Total Protein 6.1 L (6.5-8.0) g/dL Albumin 3.8 (3.5-5.0) g/dL Lipase 27 (8-78) U/L Urine Color Yellow Urine Appearance Clear Urine pH 5.5 (5.0-9.0) Ur Specific [place] 1.010 (1.005-1.025) Urine Protein Negative (Neg-Trace) mg/dL Urine Glucose (UA) Negative (Negative) mg/dL Urine Ketones Negative (Negative) mg/dL Urine Blood Negative (Negative) Urine Nitrite Negative (Negative) Ur Leukocyte Esterase Negative (Negative) Discharge Plan Discharge Clinical Impression: Lower abdominal pain, Headache Patient Disposition: Home, Self-Care Additional Instructions: Your testing in the emergency room today seems very reassuring. Your blood testing does not suggest any concerning findings. A CT scan of your abdomen does not show any dangerous process at work. Please rest and take it easy the next couple of days. Please contact your regular doctor's office later this morning to try to get a recheck appointment in the next few days. Return to the emergency room if significantly worse. Prescriptions: No Action diphenhydramine HCl [Benadryl] 25 mg capsule 50 mg PO Q8H PRN (Reason: nausea and vomiting) Qty: 10 0RF Excedrin Migraine 250-250-65 mg tablet 1 tab PO Q6H PRN (Reason: headache) Qty: 10 0RF amlodipine 5 mg tablet 5 mg PO DAILY valsartan 160 mg tablet 160 mg PO DAILY atorvastatin 40 mg tablet 40 mg PO DAILY quetiapine 25 mg tablet 25 mg PO BEDTIME famotidine 40 mg tablet 40 mg PO BID vitamin B complex [B Complex-Vitamin B12] Tablet 1 tab PO DAILY fluoxetine 10 mg capsule 10 mg PO DAILY omeprazole 20 mg capsule,delayed release(DR/EC) 20 mg PO DAILY lorazepam 0.5 mg tablet 0.5 mg PO BEDTIME PRN cholecalciferol (vitamin D3) 1,250 mcg (50,000 unit) capsule 1,250 mcg PO QWEEK calcium carbonate [Calcium 500] 500 mg calcium (1,250 mg) tablet 500 mg PO DAILY (DME) Wrist Brace Misc See Rx Instructions .MEDSUPPLY Qty: 1 0RF Rx Instructions: comfort form wrist/thumb rt m Referrals: Jovana Pal, QUALITY ASSURANCE SUPERVISOR BODY [Primary Care Provider] - (Lower abdominal pain, having) Interventions: ED Discharge Assessment Last Done: 08/26/24 01:56 Discharge Date/Time: 08/26/24 01:05 Print Language: [place]
--- NOTE | 2024-08-25 21:04 | ECG_ITS ---
Test Reason : WEAKNESS Blood Pressure : / mmHG Vent. Rate : 072 BPM Atrial Rate : 072 BPM P-R Int : 212 ms QRS Dur : 080 ms QT Int : 390 ms P-R-T Axes : 060 068 049 degrees QTc Int : 427 ms Sinus rhythm with 1st degree A-V block Otherwise normal ECG When compared with ECG of 23-FEB-2024 11:45, NV interval has increased Referred By: Don Guzman Electronically Signed By:AMENA FARRELL
[2024-08-25 21:42] LABS: MANUAL DIFF FLAG NO
[2024-08-25 21:45] LABS: Basophils Percent Auto 0.8 % (0-2); Eosinophils Absolute Auto 0.1 X10*3/uL (0.0-0.4); Eosinophils Percent Auto 1.2 % (0-4); Hematocrit 28.3 % (37.0-47.0); Hemoglobin 10.1 g/dl (12.0-16.0); Imm Gran Abs Auto 0.01 X10*3/uL (0.00-0.03); Imm Gran Pct Auto 0.2 % (0.0-0.4); Lymphocytes Absolute Auto 1.1 X10*3/uL (1.2-4.9); Mean Corpuscular HGB Conc 35.7 g/dl (31.0-35.0); Mean Corpuscular Hemoglobin 32.6 pg (27.0-33.0); Mean Corpuscular Volume 91.3 fL (80.0-98.0); Mean Platelet Volume 9.4 fL (9.4-12.3); Monocytes Absolute Auto 0.4 X10*3/uL (0.1-1.2); Monocytes Percent Auto 8.9 % (2-11); Neutrophils Absolute Auto 3.3 x10*3/uL (2.0-8.3); Neutrophils Percent Auto 66.9 % (45-73); Platelet Count 183 X10*3/uL (160-400); Red Cell Distribution Width 13.4 % (11.0-16.0)
[2024-08-25 21:46] LABS: Appearance Urine Clear; Color Urine Yellow; Glucose Urine UA Negative (Negative); Leukocyte Esterase Urine Negative (Negative); Nitrite Urine Negative (Negative); PH 5.5 (5.0-9.0); Urine Blood Negative (Negative); Urine Ketones Negative (Negative); Urine Protein Negative (Neg-Trace)
[2024-08-25 21:54] VITALS: BP 140/50; PULSE 74; RESP 12; TEMP 36.6; O2SAT 96
[2024-08-25 21:57] LABS: Alanine Aminotransferase 11 U/L (0-31); Albumin Level 3.8 g/dL (3.5-5.0); Alkaline Phosphatase 54 U/L (39-117); Anion Gap 12 (12-20); Aspartate Amino Transferase 18 U/L (5-31); Bilirubin Direct 0.2 mg/dL (0.0-0.5); Bilirubin Total 0.5 mg/dL (0.0-1.0); Blood Urea Nitrogen 18 mg/dL (9-16); C Reactive Protein 0.12 mg/dL (< or = 0.50); Calcium 9.4 mg/dL (8.4-10.2); Carbon Dioxide 21 mmol/L (22-29); Chloride 100 mmol/L (96-108); Creatinine Clr Calc Pharmacy 50.5; Estimated Glomerular Filt Rate 44; Glucose Random 98 mg/dL (60-115); Lipase 27 U/L (8-78); Sodium 129 mmol/L (135-145); Total Protein 6.1 g/dL (6.5-8.0)
[2024-08-25] MEDS: 0.9 % Sodium Chloride 1,000 ML 999 ML IV (22:10)
--- NOTE | 2024-08-25 22:30 | PC.NURSE ---
Pt medicated per [facility] plan of care ongoing.
[2024-08-25] MEDS: Metoclopramide HCl 10 MG/2 ML VIAL IVPUSH (22:39)
[2024-08-25] MEDS: Acetaminophen 1,000 MG/100 ML PIGGYBACK 400 MG IV (22:41)
--- NOTE | 2024-08-25 22:44 | PC.NURSE ---
Pt assisted to the bedside commode Pt medicated per nov Pt requested and both bed railings placed Pt requested and lights dimmed Plan of care ongoing
[2024-08-25 23:11] VITALS: BP 118/45; PULSE 76; RESP 18; TEMP 36.9; O2SAT 98
[2024-08-25] MEDS: iohexoL 350 MG/ML 100 ML INFUS..BTL IV (23:35)
[2024-08-25 23:56] VITALS: RESP 12
[2024-08-26 01:56] VITALS: BP 122/68; PULSE 74; RESP 12; TEMP 36.8; O2SAT 98
== END 2024-08-26 01:05 | disposition home or self-care (01) ==
PROVIDERS: Emergency Provider Emergency Medicine; PCP Nurse Practitioner Family
DX: R10.2 Pelvic and perineal pain (principal); R51.9 Headache, unspecified; I44.0 Atrioventricular block, first degree; R10.32 Left lower quadrant pain; R11.0 Nausea; Z79.899 Other long term (current) drug therapy
CPT/HCPCS: 36415; 74177; 80048; 80076; 81003; 83690; 85025; 86140; 93005; 96361; 96374; 96375; 99284; 99285; J0131; J2765; Q9967

== ENCOUNTER → 2024-08-25 21:04 | Outpatient (BNV) | payer MEDICARE, OTHER, SELFPAY | PROVIDERS: Emergency Provider Emergency Medicine; PCP Nurse Practitioner Family; Visit Provider Internal Medicine | DX: I44.0 Atrioventricular block, first degree (principal); R53.1 Weakness | CPT/HCPCS: 93010 ==

== ENCOUNTER 2025-07-13 11:01 | Emergency (ER) | payer MEDICARE, OTHER, SELFPAY ==
--- OUTSIDE RECORDS SUMMARY | 2024-06-14 09:40 | XMS_ITS ---
Author Organization [facility] Address [address] [place] [phone] Care Team Providers Care Steam Clean Machine Operator Name Role Phone Jovana Pal CNP Primary Care Provider Chin Parish [phone] REASON FOR VISIT stomach is a mess Encounters Encounter Location Date Provider Diagnosis [facility] [address] [place] [phone] 06/14/2024 Chin Garcia Plan Of Treatment No Information Progress Notes * BRIANNA HARKINS ADOB: 7 (79 yo F)Acc No.[id number]:06/14/2024 Progress Notes Patient: BRIANNA TSEPHENS Provider: Ford Garcia MD :1945 A ge:78 Y S ex:Female Date:06/14/2024 Address:[address] [place], [place] [phone] Pcp:Jovana Pal CNP Subjective: * Chief Complaints: [...] MD Date: 0 06/14/2024 Generated for Maykel franz/Lesag/eTransmitting on: 1 11:25 AM EDT
--- OUTSIDE RECORDS SUMMARY | 2024-08-19 10:45 | XMS_ITS ---
Author Organization [facility] Address [address] [place] [address] Care Team Providers Care Nutrition Teacher Name Role Phone Jovana Pal Primary Care Provider Zaida Elam [phone] Encounters Encounter Location Date Provider Diagnosis [address] [address] 08/19/2024 Zaida Estrada Plan Of Treatment Next Appt Details Provider Name:Zaida Estrada , 07/24/2025 11:15:00 AM, [address] [place], [address], Progress Notes * Serena SANABRIA ADOB: 7 (79 yo F)Acc No.[id number]:08/19/2024 Progress Note Patient: Serena STEPHENS Provider: Angelica Estrada DPM :1945 A ge:78 Y S ex:Female Date:08/19/2024 Address:[address] [place] [address] Pcp:Jovana Pal Subjective: * Chief Complaints: * * Medical History: Objective: * Vitals: Assessment: Plan: * Treatment: * Images: * The named appointment provid er may or may not be the originator of this progress note, and it is not deemed complete until electronically signed by the appointment provider. Sign off status: Pending * Provider: Angelica Estrada DPM Date: 10/19/2023 Generated for Maykel franz/Dusty/Lucaitting on: 1 11:25 AM EDT
--- OUTSIDE RECORDS SUMMARY | 2024-12-19 10:30 | XMS_ITS ---
Author Organization [facility] Address [address] [place] [address] Care Team Providers Care Animal Husbandry Technician Name Role Phone Jovana Pal Primary Care Provider Zaida Elam [phone] Encounters Encounter Location Date Provider Diagnosis [address] [address] 12/19/2024 Zaida Estrada Plan Of Treatment Next Appt Details Provider Name:Zaida Estrada , 07/24/2025 11:15:00 AM, [address] [place], [address], Progress Notes * Serena SANABRIA ADOB: [birth year] (79 yo F)Acc No.[id number]:12/19/2024 Progress Note Patient: Serena STEPHENS Provider: Angelica Estrada DPM :1945 A ge:79 Y S ex:Female Date:12/19/2024 Address:[address] [place] [address] Pcp:Jovana Pal Subjective: * Chief Complaints: * [...] 12/19/2024 Generated for Maykel franz/Dusty/Latia on: 1 11:25 AM EDT
--- NOTE | ~2025-07-13 | XR_ITS ---
CLINICAL HISTORY: back pain Three views of the lumbar spine. COMPARISON: None provided. FINDINGS: Surgical clips in the right upper quadrant. Five tyc-hor-letcocc lumbar type vertebral bodies. Chronic appearing inferior endplate compression fracture of the L1 vertebral body with approximately 20 percent height loss. Chronic appearing endplate compression fracture of the L4 vertebral body with approximately 10 percent height loss. Normal vertebral body alignment. Remaining vertebral body heights appear maintained. Facet joint arthrosis, loss of disc space height and marginal osteophytes present throughout the lumbar spine. There is neural foraminal narrowing most pronounced at L3-4 and L4-5. Visualized portions of the bones of the pelvis appear intact. IMPRESSION: 1. No radiographic evidence of acute injury to the lumbar spine. 2. Chronic appearing compression fractures of the L1 and L4 vertebral bodies. No retropulsion into the canal. Recommend comparison with prior imaging if available. 3. Moderate to advanced multilevel degenerative changes of the lumbar spine. This document has been electronically signed by: Terrence Carrasquillo MD on 07/13/2025 14:53:01
--- NOTE | ~2025-07-13 | XR_ITS ---
CLINICAL HISTORY: psterior neck pain 4 views cervical spine Comparison: None provided Findings: Normal alignment. The study is limited as the entire cervical spine is not seen on the lateral view. No definite fractures or dislocations are seen. No significant degenerative change. No prevertebral soft tissue swelling. The visualized disc spaces appear relatively unremarkable. There is multilevel uncinate joint arthropathy. IMPRESSION: Limited examination. No definite acute process noted. This document has been electronically signed by: Fer Palafox MD on 07/13/2025 12:43:00
--- NOTE | ~2025-07-13 | XR_ITS ---
CLINICAL HISTORY: Right hip pain 3 view, pelvis and right hip Comparison: None provided Findings: No acute fracture or dislocation. No significant arthritic change. The soft tissues are unremarkable. IMPRESSION: No acute findings. This document has been electronically signed by: Fer Palafox MD on 07/13/2025 12:31:53
--- NOTE | ~2025-07-13 | XR_ITS ---
CLINICAL HISTORY: Pneumonia? maialise, flue like symptoms 1 view chest x-ray Comparison: None provided Findings: The lungs are clear. Heart size is normal. No acute fracture. IMPRESSION: 1. No acute findings. This document has been electronically signed by: Fer Palafox MD on 07/13/2025 12:30:13
[2025-07-13 11:09] VITALS: BP 124/64; BP 147/58; PULSE 86; PULSE 88; RESP 18; TEMP 36.7; O2SAT 100; O2SAT 99; BMI 39.5
--- OUTSIDE RECORDS SUMMARY | 2025-07-13 11:25 | XMS_ITS | Patient Health Record ---
[facility] Address [address] [place] [address] Care Team Providers Care Excavating Supervisor Name Role Phone Jovana Pal Primary Care Provider Gaudencio EstradaZaida Unavailable [phone] Allergies Allergen (clinical drug ingredient) Drug/Non Drug Allergy documented on EMR Reaction Allergy Type Onset Date Status Levaquin stomach upset Drug Allergy Act douglas Reason For Referral No Information Medications Medication SIG (Take, Route, Frequency, Duration) Notes Start Date End Date Status Vitamin D3 Active Ativan 0.5 MG 1 tablet at bedtime as needed Orally Once a day PRN Active Caltrate 600 Active Tylenol PRN Active Fluticasone Furoate PRN Active Calcium Active Atorvastatin Calcium 40 MG 1 tablet Orally Once a day; Duration: 30 day(s) Active immodium PRN Active Montelukast Sodium 10 MG 1 tablet Orally Once a day; Duration: 30 day(s) Not-Taking Sleep Aid Active Omeprazole 20 MG 1 capsule 30 minutes before morning meal Orally Once a day; Duration: 30 day(s) Active Amoxicillin as needed Active amLODIPine Besylate 5 MG 1 tablet Orally Once a day; Duration: 30 day(s) Active Vitamin B-12 1000 MCG 1 tablet Orally On ce a day; Duration: 30 day(s) Active FLUoxetine HCl 20 MG 1 capsule Orally On ce a day; Duration: 30 day(s) Active Immunizations Vaccine Route Administration Date Status Comme nts Influenza Unknown 06/02/2024 Administered Social History Tobacco Use: Social History Observation Description Date Details (start date - stop date) Never Smoker NA - NA Tobacco Use/Smoking Question Answer Notes Are you a: nonsmoker Additional Findings: Tobacco Non-User Current no n-smoker Alcohol Screen Question Answer Notes Did you have a drink containing alcohol in the p ast year? No Points 0 Interpretation Negative Tobacco use other than smoking: Question Answer Notes Are you an other tobacco user? No Problems Problem Type SNOMED Code ICD Code Onset Dates Problem Status W/U Status Risk Notes Problem Localized, primary osteoarthritis of the ankle and/or foot (371299061) Osteoarthritis of right ankle or foot (M19.071) Active confirmed Vital Signs Blood pressure diastolic 80 mm Hg 03/24/2025 Height 5ft 6in in 03/24/2025 Blood pressure systolic 122 mm Hg 03/24/2025 Weight 240 lbs 03/24/2025 BMI 38.73 kg/m2 03/24/2025 Procedures Procedure Date Ordered Date Performed Result Body Sit e 32867-PFNWJLD NAIL, 6 OR MORE 09/12/2024 N/A 95201-PNJJVBG NAIL, 6 OR MORE 03/24/2025 N/A Encounters Encounter Location Date [facility] [address] 09/12/2024 Zaida Black Pain in right toe(s) M79.674 ; Onychomycosis B35.1 and Pain in left toe(s) M79.[address] [address] 03/24/2025 Zaida Black Onychomycosis B35.1 ; Osteoarthritis of right ankle or foot M19.071 ; Pain in right toe(s) M79.674 ; Pain in left toe(s) M79.675 and Arthralgia of right ankle M25.[address] [address] 08/19/2024 Zaida Black [address] [address] 12/17/2024 Zaida Black Assessments Encounter Date Diagnosis (ICD Code) Assessment Notes Treatment Notes Treatment Clinical Notes Section Notes 09/12/2024 Pain in right toe(s) (ICD-10 - M79.674) 09/12/2024 Onychomycosis (ICD-10 - B35.1) 03/24/2025 Onychomycosis (ICD-10 - B35.1) 03/24/2025 Osteoarthritis of right ankle or foot (ICD-10 - M19.071) 03/24/2025 Pain in right toe(s) (ICD-10 - M79.674) 09/12/2024 Pain in left toe(s) (ICD-10 - M79.675) 03/24/2025 Pain in left toe(s) (ICD-10 - M79.675) 03/24/2025 Arthralgia of right ankle (ICD-10 - M25.571) Plan Of Treatment Pending Test Test Name Order Date 31317-UPTCPFW NAIL, 6 OR MORE 04/22/2021 15962-CYOZYHX NAIL, 6 OR MORE 04/21/2022 16696-GPKEVFF NAIL, 6 OR MORE 08/29/2022 47016-MEWLVJF NAIL, 6 OR MORE 12/26/2022 35468-AUVUDGS NAIL, 6 OR MORE 05/01/2023 47110-CKSSTVZ NAIL, 6 OR MORE 08/14/2023 38156-CKBOVRX NAIL, 6 OR MORE 11/09/2023 63934-ZCKEZLY NAIL, 6 OR MORE 05/13/2024 25456-HWLXBAN NAIL, 6 OR MORE 09/12/2024 87336-BTRODKQ NAIL, 6 OR MORE 03/24/2025 34917-Thdqjxbi Plate 04/21/2022 15378-Njfntwrg Plate 05/01/2023 32260-Qpydwhfs Plate 04/22/2021 74455-Nmjwrgel Plate Each Additional 31010-Fvjcirbz Plate Each Additional Next Appt Details Provider Name:Zaida Estrada , 07/24/2025 11:15:00 AM, [address] [facility], [place], [address], Insurance Providers Payer Name Payer Address Payer Phone Subscriber Number Group Number Insured Name Patient Relationship to Insured Coverage Start Date Coverage End Date Medicare [employer] [facility] [address] [facility] [place] [address] [id number] Serena Sanabria Self - patient is the insured [facility] [address] [place] [address] [id number] Sernea Sanabria Self - patient is the insured 2 Medical (General) History Medical History History ICD Code Anxiety Arthritis Cataracts High blood pressure Osteoporosis Reflux ( GERD) Measles Mumps Chicken pox Joint implants/screws Infusions Other hammer toe(s) (acquired), right fo ot M20.41 Other hammer toe(s) (acquired), left filipe t M20.42 Arthritis of joint of lesser toe, left M 19.072 Surgical History Surgery Date(Month/Year) gall bladder 1983 total right knee replacement 2007 total left knee replacement 09/2019 Hospitalization History Reason Date(Month/Year) [facility] [place] ER- stomach issues 08/25
--- OUTSIDE RECORDS SUMMARY | 2025-07-13 11:26 | XMS_ITS | Patient Health Record ---
Author Organization [facility] Address [address] [place] [address] Care Team Providers Care Fitness And Wellness Manager Name Role Phone Kae Jovana CORCORAN Primary Care Provider [place] [phone] Allergies No Known Allergies Reason For Referral No Information Medications Medication SIG (Take, Route, Frequency, Duration) Notes Start Date End Date Status Atorvastatin Calcium 40 MG Oral; Duration: 90 Active Calcium & Vit D3 Bone Health - as directed Orally Active Valsartan 160 MG Oral; Duration: 90 Active QUEtiapine Fumarate 25 MG 1 tablet at bedtime Orally Once a day; Duration: 30 day(s) Active Amoxicillin 250 MG 1 capsule Orally as needed for dentist due to knee surgery Active Omeprazole Active Famotidine 40 MG 1 Orally Once every morning and once every late afternoon or evening for acid reflux; Duration: 30 day(s) Please remind the patient to stop her omeprazole when she starts this new Rx.Thanks 03/01/2024 Active FLUoxetine HCl 20 MG Oral; Duration: 90 Active amLODIPine Besylate 5 MG Oral; Duration: 90 Active Vitamin B12 100 MCG as directed Orally Active buPROPion HCl ER (XL) 150 MG Oral; Duration: 90 Active Vitamin D Active Dicyclomine HCl 10 MG 1-2 Orally Q 6 hours as needed for abdominal cramps--you can also try the Dicyclomine before a meal to see if that would help; Duration: 90 days 10/05/2021 Active PROzac Active LORazepam as needed Active Dicyclomine HCl 10 MG 1 or 2 Orally Q 6 hours prn abdominal cramps/bloating/dis comfort--you can also use it before meals to prevent any symptoms after you eat; Duration: 90 days 10/21/2021 Active Immunizations Vaccine Route Administration Date Status Comme nts Influenza Unknown 08/02/2021 Administered Influenza Unknown 07/25/2023 Administered Social History Alcohol Screen Question Answer Notes Did you have a drink containing alcohol in the p ast year? No Points 0 Interpretation Negative Section Notes: Nonsmoker; no sig. alcohol Nonsmoker; no sig. alcohol 45 year old son with a previous substance abuse history lives at home Nonsmoker; no sig. alcohol 45 year old son with a previous substance abuse history lives at home Nonsmoker; no sig. alcohol 45 year old son with a previous substance abuse history lives at home Problems Problem Type SNOMED Code ICD Code Onset Dates Problem Status W/U Status Risk Notes Problem Diarrhea (82199260) Diarrhea (R19.7) Active confirmed Problem Anorexia (78372129) Anorexia (R63.0) Active confirmed Problem Irritable bowel syndrome (19924625) Irritable bowel syndrome with both constipation and diarrhea (K58.2) Active confirmed Problem Gastroesophageal reflux disease (disorder) (007447966) Chronic GERD (K21.9) Active confirmed Plan Of Treatment Pending Test Test Name Order Date CELIAC PANEL #10 03/01/2024 Insurance Providers Payer Name Payer Address Payer Phone Subscriber Number Group Number Insured Name Patient Relationship to Insured Coverage Start Date Coverage End Date MEDICARE OF [place] [address] [place] [address] [phone] [id number] BRIANNA HARKINS Self - patient is the insured [facility] [employer] [address] [place] [address] [id number] BRIANNA HARKINS Self - patient is the insured Medical (General) History Medical History History ICD Code Colonoscopy in 2008 was negative except for diverticulosis Upper endoscopy in 2007 was negative except for a small hiatal hernia and minimal gastritis--biopsies were negative for H. pylori Anxiety and depression Hypertension Colonoscopy in 2015 at [facility] was negative, without any sign of polyps no inflammatory bowel disease--colon biopsies were negative for microscopic colitis Upper endoscopy in 2019 at [facility] was negative except for a hiatal hernia--esophageal biopsies were negative for eosinophilic esophagitis-gastric and duodenal biopsies were not obtained Osteoporosis She reports that she had neg ative celiac disease laboratories in approximately 2019 Hyperlipidemia Irritable bowel syndrome GERD Surgical History Surgery Date(Month/Year) Right knee replacement in 2007 Cholecystectomy Left knee Bilateral eye surgery
--- OUTSIDE RECORDS SUMMARY | 2025-07-13 11:26 | XMS_ITS | Data Portability ---
Author Organization [place] - [facility], [facility] Address [address] [place] [address] Assessment Encounter Date Assessment Date Assessment LastModified by Organization Details LastModified Time 12/21/2023 12/21/2023 I am seeing the patient today under the supervision of Afshin who was available but who did not see the patient. The patient presents today for follow-up. Has known trochanteric bursitis of the Bi-lateral hip. Has had previous cortisone injection which gave relief until recently. Has had no recent trauma, no fevers or chills, no neurovascular changes. Presents today for further evaluation. PAST MEDICAL/SURGICAL HISTORY Past medical history is reviewed per intake sheet. PHYSICAL FINDINGS On physical examination, the patient is well appearing and in no apparent distress, alert and oriented x3. Gait is symmetric. Physician examination of the hip reveals the skin to be intact, normal musculature, continued tenderness on palpation over the greater trochanter. No pain with range of motion of the hip, has full range of motion, no crepitus noted with range of motion. No significant pain with straight leg raise. ASSESSMENT Symptomatic trochanteric bursitis of the Bi-lateral L hip. PLAN I reviewed the findings with the patient, discussed different treatment options which included medications physical therapy and injections The patient wishes to proceed with cortisone injection. Please see procedure note. Monitor the effects and follow-up as directed. [email or web address] Not available 12/21/2023 08:45:25 01/30/2024 01/30/2024 I am seeing the patient today under the supervision of was available but who did not see the patient. HPI: Patient presents today complaining of hip and back pain. Patient's been dealing with hip pain for quite some time difficulty sitting standing. Difficulty walking. Thfj-rwy-rjppsft medications have not helped. Now currently affecting all ADLs. Difficulty walking any distance. Pain is currently in the groin radiating into the buttocks and down the leg previous cortisone injection did not help Past family, medical, social history and review of systems has been reviewed, updated and is located in the patient s chart. Examination: [] hip exam. - warmth, effusion, erythema, ecchymosis, limitedROM, pain with internal/external ROM, no crepitus, no edema, 4/5 strength, nontender over greater trochanter, - Milagros s , Obers, [place] sign, calf soft, neurovascularly intact. Back Exam. No warmth, effusion, erythema, ecchymosis. Good flexion, extension, lateral bending, and rotation,. No edema, 5/5 strength, LE, negative straight leg raise, nontender paraspinal muscles, nontender spinous processes, calf soft and nontender, neurovascularly intact, +2 reflexes, good L5/S1 function, no drop foot, no radicular symptoms. 2 X-ray views independently reviewed at [facility] o diffuse lumbar spine osteoarthritis Impression: Lumbar spine osteoarthritis Plan: Today we discuss treatment plans including medications, physical therapy, injections and surgical management. At this point patient was to proceed with a Medrol Dosepak and physical therapy follow-up in 8 weeks if not better ray Not available 01/30/2024 13:52:07 07/10/2024 07/10/2024 I am seeing the patient today under the supervision of Dr Pepe who was available but who did not see the patient. ray Not available 07/10/2024 09:21:13 Plan of Treatment Reminders Order Date Submit Date Provider Last Modified By Organization Details Last Modified Time Details Appointments None recorded. Lab None recorded. Referral physical therapist referral - Dx: Timur shldr degenerativ e rotator cuff disease rom & stretching eval & tx 2024 025 [email or web address] [facility] [place], [address] [place] [address], [address], 16:15:13 physical therapist referral - Evaluate & Rx Lumbar Stabilizati on Program 2023 024 [email or web address] Not available 14:58:30 Procedures None recorded. Surgeries None recorded. Imaging XR, shoulder, 2 or more view - 4v timur shldr. room 1 2024 025 NIRAJ [facility], [address], [address], [place], [address], 5 14:36:51 XR, cervical spine, 1 view - cspine. room 1 2024 025 [email or web address] [facility], [address], [address], [place], [address], 5 14:32:42 Medication Orders Medrol (Moshe) 4 mg tablets in a dose pack 2023 024 [email or web address] [facility], [address] [place], [address], 14:17:45 Patient TargetsNo targets recorded. Patient InstructionsNo instructions recorded. Reason for Referral Physical Therapist Referral for Lumbar radiculopathy Evaluate & RxLumbar Stabilization Program Referring Physician: Meng Mcduffie, Orthopedic Surgery, [id number] Encounter Date: 01/30/2024 Physical Therapist Referral for Bilateral rotator cuff syndrome Dx: Timur shldr degenerative rotator cuff diseaserom & stretchingeval & tx Referring Physician: Pablito Mercedes, Orthopedic Surgery, Encounter Date: 05/29/2025 Results Created Date Observation Date Name Description Value Unit Range Abnormal Flag Note LastModifiedBy Organization Detail LastModifiedTime 05/29/2005/29/2025 XR, cervi blade spine , 1 view [email or web address] ?Encry pted=s hAaTro YD8dLq bEUv6g %2BXZw aYqtaq 0bqfl% 2Fg9IQ a4ajBk vP9nXo QUaueC m3YtLR FvZlgJ JJ8mAn HZtai3 2k8485 AC0Klb 3qFWKC uKiQtr MwF INTERFACE [facility] [address], [place], [address], 05/29/2025 14:29:41 05/29/20 25 05/29/2025 XR, cervi blade spine , 1 view [email or web address] ?Encry pted=s hAaTro YD8dLq bEUv6g %2BXZw aYqtaq 0bqfl% 2Fg9IQ a4ajBk vP9nXo QUaueC m3YtLR FvZlgJ JJ8mAn HZtai3 7g7401 AC0Klb 3qFWKC uKiQtr MwF INTERFACE [facility] [address], [place], [address], 05/29/2025 14:29:43 05/29/20 25 05/29/2025 XR, shoul alex, 2 or more view [email or web address] ?Encry pted=s hAaTro YD8dLq bEUv6g %2BXZw aYqtaq 0bqfl% 2Fg9IQ a4ajBk vP9nXo QUaueC m3YtLR FvZlgJ JJ8mAn HZtai3 5t0146 AC0Klb 3qFWKC hKiQtr MwF INTERFACE [facility] [address], [place], [address], 05/29/2025 14:36:53 05/29/20 25 05/29/2025 XR, shoul alex, 2 or more view [email or web address] ?Encry pted=s hAaTro YD8dLq bEUv6g %2BXZw aYqtaq 0bqfl% 2Fg9IQ a4ajBk vP9nXo QUaueC m3YtLR FvZlgJ JJ8mAn HZtai3 8w5593 AC0Klb 3qFWKC hKiQtr MwF INTERFACE [facility] [address], [place], [address], 05/29/2025 14:36:55 Result Notes Documentation Provider Name and Address Organization Details Recorded Time Xr, Cervical Spine, 1 View : [email or web address] Encrypted=wjPhUutYZ5vJdeR Uv6g%9JHOwhXiuam5yknr%2Fg 9JRl9sxDrcX4xTxMOlhcQe4Ir PTKoLqnOFM8eDjKPcty84i017 9YQ6Mbz9oOWJQnUdOvdUoB Not Available [facility] 05/29/2025 14:29: 42 Xr, Cervical Spine, 1 View : [email or web address] Encrypted=lnEuUnsRA6bAseL Uv6g%6UDYkjFkkgv9hxpm%2Fg 7JGp4tlTgrE0kQuYKzuwMl2Jj YCAyQkjDWW8fDcYAbet83c436 1XC0Aqw7mTKTQqYsDdmDtJ Not Available [facility] 05/29/2025 14:29: 43 Xr, Shoulder, 2 Or More View : [email or web address] Encrypted=coLrZqnNO0hJkaB Uv6g%1UVIldWuyvo9jxtq%2Fg 3UAn5wnMneJ9tSuUSecbTe7Yc BGDeQnuCRT9yHnNKfut63n283 4XA9Qof5yIPDSnSuFusXyL Not Available [facility] 05/29/2025 14:36: 54 Xr, Shoulder, 2 Or More View : [email or web address] 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 Problem Code: M17.12; Problem Code Type: ICD-10; Status: 'A'; Not Available [facility], [facility]–1983 4 11:42:16 Knee joint prosthesi s present 511504334797 Active 2019 Problem Code: Z96.652; Problem Code Type: ICD-10; Status: 'A'; Not Available [facility], [facility]–1983 4 11:42:16 Trochante hazel bursitis of right hip 074653342211 100 Active 2023 Meng Mcduffie PA-C [address], [place], [address] , [facility] 4 08:45:31 Trochante hazel bursitis of left hip 894189665440 103 Active 2023 Meng Mcduffie PA-C [address], [place], [address] , [facility] 4 08:45:38 Lumbar radiculop athy 500265289 [facility] 4 13:49:38 Problem Notes None recorded. Procedures Surgical History Date Name Laterality Status Provider Name and Address Organization Details Recorded Time 07/10/2024 JZHip Inj completed Meng Mcduffie PA-C [address], [place], [address], [facility] 07/10/2024 09:21:08 12/21/2023 JZHip Inj Timur completed Meng Mcduffie PA-C [address], [place], [address], [facility] 12/21/2023 08:45:11 Imaging Results None recorded. Procedure Notes None recorded. Medical Equipment None Reported. Allergies No known drug allergies Medications Name Sig Start Date Stop Date Status Note LastModified by Organization Details LastModified Time quetiapine 25 mg tablet active Not Available Not Available Not Available amoxicillin 500 mg capsule 12/20 completed Not Available Not Available Not Available atorvastati n 40 mg tablet active Not Available Not Available Not Available neomycin-po lymyxin-hyd rocort 3.5 mg/mL-10,00 0 unit/mL-1 % ear solution 05/29 completed Not Available Not Available Not Available famotidine 40 mg tablet active Not Available Not Available Not Available amlodipine 5 mg tablet active Not Available Not Available Not Available lorazepam 0.5 mg tablet active Not Available Not Available Not Available pseudoephed rine-guaife nesin ER 80-700 mg tablet,exte nded release 1-2 TABS EVERY 4-6 HRS PRN PAIN 01/17 completed Statu s: 'Disc ontin ued'; Not Available Not Available Not Available omeprazole 20 mg capsule,del ayed release active Not Available Not Available Not Available gabapentin 100 mg capsule active Not Available Not Available Not Available methylpredn isolone 4 mg tablets in a dose pack take as directed 05/29 completed Not Available Not Available Not Available fluoxetine 20 mg capsule active Not Available Not Available Not Available dicyclomine 10 mg capsule 05/29 completed Not Available Not Available Not Available valsartan 160 mg tablet active Not Available Not Available Not Available hyoscyamine sulfate Hyoscyami ne Sulfate 0.125MG Tablet 09/09 completed Statu s: 'Disc ontin ued'; Not Available Not Available Not Available oxycodone HCl-oxycodo ne-ASA 1-2 TABLETS EVERY 4 HOURS PRN FOR MILD TO MODERATE PAIN WAS GIVEN ON DISCHARGE 01/17 completed Statu s: 'Disc ontin ued'; Not Available Not Available Not Available Vitals Date Recorded Body height Body mass index (BMI) Body weight Provider Name and Address Organization Details Last Updated DateTime 12/21/2023 167.64 cm 40.4 kg/m2 259885.09 g MADELYN FAYE [place] - [place] [facility] 12/21/2023 08:44:20 Date Recorded Body height Body mass index (BMI) Body weight Provider Name and Address Organization Details Last Updated DateTime 01/30/2024 167.64 cm 40.4 kg/m2 436583.09 g MADELYN FAYE [facility] 01/30/2024 13:45:45 Date Recorded Body height Body mass index (BMI) Body weight Provider Name and Address Organization Details Last Updated DateTime 05/29/2025 167.64 cm 40.4 kg/m2 626977.09 g Astrid Dutta [facility] 05/29/2025 14:17:16 Date Recorded Body height Body mass index (BMI) Body weight Provider Name and Address Organization Details Last Updated DateTime 07/10/2024 167.64 cm 40.4 kg/m2 152826.09 g Antonio Melgar [facility] 07/10/2024 08:36:41 Social History None recorded. Functional Status None recorded. Mental Status None recorded. Family History Nothing Reported. Medical History No medical history recorded. Gynecological HistoryNo gynecological history recorded. Obstetrics History GPAL:G 0 P 0 0 0 0 Past Encounters Encounter ID Performer Location Encounter Start Date Encounter Closed Date Diagnosis/Indication Diagnosis SNOMED-CT Code Diagnosis ICD10 Code Diagnosis IMO Codes Diagnosis Note [id number] MD Parker Noguera [address] [place] [address] 12/21/2023 08:36:08 12/21/2023 08:54:30 Trochanteric bursitis of right hip 6192507728 14682 M70.61 Trochanter ic bursitis of left hip 3747882104 63354 M70.62 [id number] LEROY Jaramillo [address] [place] [address] 01/30/2024 13:42:33 02/20/2024 13:48:06 Idiopathic osteoarthritis 602663734 M17.12 Lumbar radiculopathy 128 382582 M54.16 [id number] LEROY Jaramillo [address] [place] [address] 07/10/2024 08:29:06 08/05/2024 14:43:21 Trochanteric bursitis of left hip 3500055943 06858 M70.[id number] [place] [address] 05/29/2025 13:45:55 06/10/2025 11:05:41 Pain of bilateral shoulder regions 9116904535 99937 M25.511 M25.512 71237780 Bilateral rotator cuff syndrome 2129092395 0508863 M75.101 M75.102 [id number] Health Concerns Section Related Observation LastModified by Organization Detai ls LastModified Time None Recorded Concern Status LastModified by Organization Details LastModified Time None Recorded Advance Directives Directive None Recorded Payers Insurance Date Sequence Insurance Name Policy Number Policy Carrera Covered Member ID Carrera Member ID Guarantor Name 05/26/2025 1 [place]ICARE [place]: [employer] Serena Sanabria [id number] Serena Sanabria 07/04/2025 2 FOR LIFE () Serena Sanabria [id number] Serena Sanabria Notes Date Note Type Note Provider Name and Address Organization Details Recorded Time 05/29/2025 text/html I am seeing this patient under the supervision of Dr. Mathew who was available but did not see the patient. HPI: Ms. Sanabria presents for mild to moderate bilateral shoulder pain. She is a very pleasant 79-year-old woman who has noticed progressive difficulty with raising her using the arms overhead with routine activities of daily living. She denies any trauma or injury. Symptoms have been progressive in nature. She does have some stiffness in the neck at times as well but denies any paresthesias or paralysis to the extremities. Her shoulders are somewhat sore when she has to lift or push herself up from a sitting position or when putting objects away overhead. She does not have any significant pain at night sleeping. PFMSH and ROS has been reviewed, updated, and is located in the patient s chart. PHYSICAL EXAMINATION: The patient is well appearing and in no apparent distress. Alert and oriented x 3. Gait is symmetric. Bilateral holders were symmetric on exam today. Both tolerated active forward elevation to 160 degrees, abduction 90 degrees before scapular substitution with internal and external rotation 60 and 70 degrees. Deltoid and rotator cuff are grossly intact with good strength with resistance testing in all planes although did provide some discomfort. Mild impingement signs noted. No evidence of instability. Hypertrophic changes to the distal clavicles bilaterally with mild pain to ballottement. No evidence of instability. Cervical ROM was each appropriately normal without radicular symptoms 4 views of bilateral shoulders were obtained and demonstrate type II acromion with moderate AC joint arthritis bilaterally. Good joint space preservation to the glenohumeral joints. Mild to moderate reactive changes to the greater tuberosities bilaterally. Lateral C-spine demonstrates loss of normal curvature with moderate multilevel arthrosis. No erythema, no redness, no warmth. Peripheral, vascular, lymphatic examination, skin, neurological, coordination, reflexes, sensation are within normal limits. 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 Discussed conservative care primarily to include physical therapy and and the use of Tylenol. She will follow-up with us as needed. Pablito Mercedes PA-C [address] [facility] [address], [place], [address], [facility] - [place] [facility] 05/29/2025 14:53:44 OBGyn Episode No OBEpisode recorded.
--- NOTE | 2025-07-13 11:27 | ED_ITS ---
HPI - General Adult General Chief complaint: Back Pain/Injury Stated complaint: R SIDED BACK PAIN Time Seen by Provider: 07/13/25 11:06 Source: patient Mode of arrival: ambulatory Limitations: no limitations History of Present Illness ED Provider: Spencer Hernandez HPI narrative: 79-year-old female history of high blood pressure presents to the ED for right hip pain going down right leg that is worse on movement without any trauma. Patient states pain started after doing physical therapy. Patient also states posterior neck pain from doing whole body physical therapy. Related Data Home Medications ?Medication ?Instructions ?Recorded ?Confirmed cholecalciferol (vitamin D3) 1,250 1,250 mcg PO QWEEK 07/14/20 mcg (50,000 unit) capsule fluoxetine 10 mg capsule 10 mg PO DAILY 07/14/20 lorazepam 0.5 mg tablet 0.5 mg PO BEDTIME PRN omeprazole 20 mg capsule,delayed 20 mg PO DAILY release vitamin B complex (B 1 tab PO DAILY 07/14/20 Complex-Vitamin B12 tablet) calcium carbonate (Calcium 500) 500 mg PO DAILY amlodipine 5 mg tablet 5 mg PO DAILY 05/23/24 atorvastatin 40 mg tablet 40 mg PO DAILY 05/23/24 famotidine 40 mg tablet 40 mg PO BID 05/23/24 quetiapine 25 mg tablet 25 mg PO BEDTIME 05/23/24 valsartan 160 mg tablet 160 mg PO DAILY 05/23/24 Previous Rx's ?Medication ?Instructions ?Recorded arm brace (Wrist Brace) #1 ea 09/17/20 [id number] 250 1 tab PO Q6H PRN he adache #10 tabs 05/23/24 mg-250 mg-65 mg tablet (Excedrin Migraine) diphenhydramine HCl 25 mg capsule 50 mg (2 x 25 mg) PO Q8H PRN 05/23/24 (Benadryl) nausea and vomiting #10 caps tramadol 50 mg tablet 50 mg PO Q8H PRN pain #9 tab s 07/13/25 Allergies Allergy/AdvReac Type Severity Reaction Status Date / Time No Known Allergies Allergy Verified 07/13/25 11:12 [facility] Past Medical History Medical History Osteoporosis History of hyperlipidemia HTN (hypertension) Surgical History History of cholecystectomy History of total bilateral knee replacement Social History Social History Alcohol intake: never Patient Tobacco Use Status: Never used Tobacco Physical Exam ED Vital Signs: Vital Signs - 24 hr 07/13/25 11:09 Temperature 98.1 F Pulse Rate 86 Respiratory Rate 18 Blood Pressure 147/58 H Pulse Oximetry 99 Oxygen Delivery Method Room Air BMI result Body Mass Index 39.5 Const Orientation/consciousness: oriented to person, oriented to place, oriented to time and patient oriented x3 HENMT Head: Yes normal to inspection, Yes No palpable skull fracture present, Yes normocephalic and Yes atraumatic Ears: hearing grossly normal bilaterally, external ears normal, TM's normal bilaterally, TM normal on the right, TM normal on the left, EAC's normal, mastoids normal and no periauricular adenopathy Throat: Yes posterior oropharynx normal, Yes tonsils normal and Yes uvula midline Eyes General: appearance normal, both eyes and all related structures Neck Neck: Yes normal visual inspection, Yes full ROM, Yes no lymphadenopathy, Yes no meningeal signs, Yes trachea midline, Yes supple, No anterior neck swelling and No tender Chest Chest palpation & inspection: normal inspection of the chest and normal palpation of entire chest wall Resp Effort & Inspection: normal respiratory effort and able to speak in complete sentences Auscultation: clear to auscultation bilaterally Cardio Jugular venous distension: no JVD Heart sounds: S1 normal heart sound present and S2 normal heart sound present GI Inspection: Yes normal to inspection Palpation (GI): Soft to palpation, not firm, nontender, no guarding and not rigid General: Yes no CVA tenderness Back/Spine/Pelvis Back: no CVA tenderness and back tenderness (lumbar) Skin General skin exam: no rashes or lesions noted and elasticity normal Neuro General: oriented to person, oriented to place, oriented to time, patient oriented x3, gait normal, tone normal, moves all extremities, Normal light touch and pain sensation, no meningeal signs and no focal motor deficits Extrem General: Yes normal to inspection, Yes full ROM and Yes capillary refill normal Upper/lower leg/hip images: 2 1. positive for palpation. negative for swelling, pitting edema, erythema, ecchymosis, deformities, crepitus, or coldness/hotness. Rest of extremity is normal. Motor, neuro, and vascular exam is intact. negative for leg swelling, calf pain, ecchymosmis, or pitting edmea. Psych Appearance: grossly normal, well kempt and not disheveled Medications Administered Discontinued Medications Generic Name Dose Route Start Last Admin Trade Name Freq PRN Reason Stop Dose Admin Ketorolac Tromethamine 30 mg 07/13/25 14:36 07/13/25 14:42 Ketorolac Tromethamine 30 Mg/Ml Vial IM 07/13/25 14:37 30 mg ONCE ONE Administration Tramadol HCl 50 mg 07/13/25 17:32 07/13/25 17:45 Tramadol Hcl 50 Mg Tablet PO 07/13/25 17:33 50 mg ONCE ONE Administration Medical Decision Making Medical Decision Making [facility] [place] Narrative: 79-year-old female presents to ED for right lower back hip pain radiating down right leg, also malaise flu-like symptoms and posterior neck pain after starting physical therapy. Patient denies any manually for any mansual manipulation of the neck. Patient pain improved and resolved with Toradol and tramadol. Patient is at baseline walk with a walker and was able to ambulate with a walker. Patient's EKG nondiagnostic. Second troponin pending. SIgned out to Dr. Antonio 6:00PM. patient discharged. Second troponin is negative. Not suspectin caudina equina, DVT, arterial occlusion, carotid/aortic dissection, epidural abscess, pE, NE, Stroke, cervical spine fracture, brain bleed, or any other life threatening etiology. Differential Diagnosis Differential Diagnoses: The differential diagnosis associated with the presentation includes (scaitica, arthritits, fracture) Admission/Observation Consideration of admission/observation: Escalation of care including admission/observation considered Lab Data [facility] [place] Lab Attestation statement: I reviewed the patient's lab results. 07/13/25 12:09 07/13/25 12:09 Labs: Lab Results 07/13/25 07/13/25 07/13/25 Range/Units 12:09 13:45 17:53 WBC 9.9 (4.8-10.8) X10*3/uL RBC 3.25 L (4.20-5.50) X10*6/uL Hgb 10.4 L (12.0-16.0) g/dl Hct 31.4 L (37.0-47.0) % MCV 96.6 (80.0-98.0) fL MCH 32.0 (27.0-33.0) pg MCHC 33.1 (31.0-35.0) g/dl RDW 13.0 (11.0-16.0) % Plt Count 188 (160-400) X10*3/uL MPV 9.6 (9.4-12.3) fL Immature Gran % (Auto) 0.6 H (0.0-0.4) % Neut % (Auto) 83.1 H (45-73) % Lymph % (Auto) 6.9 L (20-40) % [place] % (Auto) 8.9 (2-11) % Eos % (Auto) 0.0 (0-4) % Baso % (Auto) 0.5 (0-2) % Lymph # (Auto) 0.7 L (1.2-4.9) X10*3/uL [place] # (Auto) 0.9 (0.1-1.2) X10*3/uL Eos # (Auto) 0.0 (0.0-0.4) X10*3/uL Baso # (Auto) 0.1 (0.0-0.2) X10*3/uL Abs Immat Gran (auto) 0.06 H (0.00-0.03) X10*3/uL Absolute Neuts (auto) 8.2 (2.0-8.3) x10*3/uL Absolute Nucleated RBC 0.000 (0.0-0.012) X10*3/uL Nucleated RBC % (auto) 0.0 (0.0-0.2) /100WBC Sodium 138 (135-145) mmol/L Potassium 4.3 (3.3-5.1) mmol/L Chloride 109 H (96-108) mmol/L Carbon Dioxide 22 (22-29) mmol/L Anion Gap 11 L (12-20) BUN 25 H (9-16) mg/dL Creatinine 1.29 (0.5-1.4) mg/dL Estim Creat Clear Calc 46.1 Estimated GFR 40 Random Glucose 125 H (60-115) mg/dL Calcium 9.4 (8.4-10.2) mg/dL Total Bilirubin 1.1 H (0.0-1.0) mg/dL AST 16 (5-31) U/L ALT 8 (0-31) U/L Alkaline Phosphatase 65 (39-117) U/L Total Creatine Kinase 47 (26-140) U/L Troponin I High Sens 3.8 6.7 D (<3.5-17.0) ng/L Total Protein 7.1 (6.5-8.0) g/dL Albumin 4.5 (3.5-5.0) g/dL Urine Color Yellow Urine Appearance Clear Urine pH 6.0 (5.0-9.0) Ur Specific [place] 1.010 (1.005-1.025) Urine Protein Negative (Neg-Trace) mg/dL Urine Glucose (UA) Negative (Negative) mg/dL Urine Ketones Negative (Negative) mg/dL Urine Blood Negative (Negative) Urine Nitrite Negative (Negative) Ur Leukocyte Esterase Trace H (Negative) Urine RBC 0-2 (0-2) /HPF Urine WBC 0-5 (0-5) /HPF Ur Squamous Epith Cells 0-2 (0-2) /HPF Urine Bacteria None Seen (None Seen) Hyaline Casts 0-2 (0-2) /LPF COVID-19 (GEMA) Negative (Negative) COVID-19 Clin Com See Note Influenza Type A (ZAY) Negative (Negative) Influenza Type B (ZAY) Negative (Negative) Influenza A & B Note See Note Independent Interpretation I performed an independent interpretation of an: EKG (non diagnonisic) and Plain X-Ray Radiology Impression Discussion of test interpretation with radiology: I have reviewed the radiologist's reading. Independent Historian Clinical information obtained from an independent historian. History obtained from or confirmed by: Other (patient) Prescription Management I considered prescription management with: Pain Medication Discharge Plan Discharge Clinical Impression: Hip pain, Back pain Patient Disposition: Home, Self-Care Instructions: Chronic Back Pain (DC), Hip Pain (ED) Additional Instructions: Your labs and imaging came back reassuring. Doing follow up with the primary care provider. You will be discharged with tramadol for pain. Return to the ED immediately for any abdominal pain, nausea, vomiting, chest pain, shortness of breath, severe back pain, inability to walk, lower extremity paralysis, numbness of genital area, or any other concerning symptoms. Prescriptions: New tramadol 50 mg tablet 50 mg PO Q8H PRN (Reason: pain) Qty: 9 0RF No Action diphenhydramine HCl [Benadryl] 25 mg capsule 50 mg PO Q8H PRN (Reason: nausea and vomiting) Qty: 10 0RF Excedrin Migraine 250-250-65 mg tablet 1 tab PO Q6H PRN (Reason: headache) Qty: 10 0RF amlodipine 5 mg tablet 5 mg PO DAILY valsartan 160 mg tablet 160 mg PO DAILY atorvastatin 40 mg tablet 40 mg PO DAILY quetiapine 25 mg tablet 25 mg PO BEDTIME famotidine 40 mg tablet 40 mg PO BID vitamin B complex [B Complex-Vitamin B12] Tablet 1 tab PO DAILY fluoxetine 10 mg capsule 10 mg PO DAILY omeprazole 20 mg capsule,delayed release(DR/EC) 20 mg PO DAILY lorazepam 0.5 mg tablet 0.5 mg PO BEDTIME PRN cholecalciferol (vitamin D3) 1,250 mcg (50,000 unit) capsule 1,250 mcg PO QWEEK calcium carbonate [Calcium 500] 500 mg calcium (1,250 mg) tablet 500 mg PO DAILY (DME) Wrist Brace Misc See Rx Instructions .MEDSUPPLY Qty: 1 0RF Rx Instructions: comfort form wrist/thumb rt m Referrals: Jovana Pal NP [Primary Care Provider, Internal Medicine] - 2 days Referral Note: Hit back pain Clinical Impression: Back pain; Hip pain Interventions: ED Discharge Assessment Last Done: 07/13/25 18:39 Discharge Date/Time: 07/13/25 20:25 Print Language: Burmese
--- NOTE | 2025-07-13 12:01 | ECG_ITS ---
Test Reason : MAILASE Blood Pressure : */* mmHG Vent. Rate : 82 BPM Atrial Rate : 82 BPM P-R Int : 204 ms QRS Dur : 82 ms QT Int : 374 ms P-R-T Axes : 57 70 43 degrees QTcB Int : 436 ms Normal sinus rhythm Normal ECG When compared with ECG of 25-Aug-2024 21:26, No significant change was found Referred By: Spencer Hernandez Electronically Signed By: Vidal Geller
[2025-07-13 12:17] LABS: MANUAL DIFF FLAG NO
[2025-07-13 12:18] LABS: Hematocrit 31.4 % (37.0-47.0); Hemoglobin 10.4 g/dl (12.0-16.0); Imm Gran Abs Auto 0.06 X10*3/uL (0.00-0.03); Imm Gran Pct Auto 0.6 % (0.0-0.4); Lymphocytes Absolute Auto 0.7 X10*3/uL (1.2-4.9); Mean Corpuscular HGB Conc 33.1 g/dl (31.0-35.0); Mean Corpuscular Hemoglobin 32.0 pg (27.0-33.0); Mean Corpuscular Volume 96.6 fL (80.0-98.0); NRBC Abs Auto 0.000 X10*3/uL (0.0-0.012); NRBC Pct Auto 0.0 /100WBC (0.0-0.2); Platelet Count 188 X10*3/uL (160-400); Red Blood Count 3.25 X10*6/uL (4.20-5.50); White Blood Count 9.9 X10*3/uL (4.8-10.8)
[2025-07-13 12:34] LABS: IDNOW Serial# 58CA691E
[2025-07-13 12:35] LABS: COVID-19 Test Negative (Negative); IDNOW Serial# 55D5AD1C; Influenza B2 Negative (Negative)
[2025-07-13 12:37] LABS: Alanine Aminotransferase 8 U/L (0-31); Albumin Level 4.5 g/dL (3.5-5.0); Alkaline Phosphatase 65 U/L (39-117); Anion Gap 11 (12-20); Aspartate Amino Transferase 16 U/L (5-31); Blood Urea Nitrogen 25 mg/dL (9-16); Calcium 9.4 mg/dL (8.4-10.2); Carbon Dioxide 22 mmol/L (22-29); Chloride 109 mmol/L (96-108); Creatinine Clr Calc Pharmacy 46.1; Estimated Glomerular Filt Rate 40; Potassium 4.3 mmol/L (3.3-5.1); Sodium 138 mmol/L (135-145); Total Protein 7.1 g/dL (6.5-8.0)
[2025-07-13 12:41] LABS: Troponin-I High Sensitivity 3.8 ng/L (<3.5-17.0)
[2025-07-13 13:00] VITALS: BP 142/58; PULSE 77; RESP 17; O2SAT 97
[2025-07-13 13:55] LABS: Appearance Urine Clear; Glucose Urine UA Negative (Negative); PH 6.0 (5.0-9.0); Specific Gravity - Urine 1.010 (1.005-1.025); UMIC TRIGGER UACC YES
[2025-07-13 18:23] LABS: Troponin-I High Sensitivity 6.7 ng/L (<3.5-17.0)
[2025-07-13 18:39] VITALS: BP 144/52; PULSE 80; RESP 17; TEMP 36.7; O2SAT 98
== END 2025-07-13 20:25 | disposition home or self-care (01) ==
PROVIDERS: Physician Assistant; Emergency Provider Emergency Medicine; PCP Nurse Practitioner Family
DX: M25.551 Pain in right hip (principal); M54.9 Dorsalgia, unspecified; Z03.818 Encounter for observation for suspected exposure to other biological agents ruled out
CPT/HCPCS: 36415; 71045; 72040; 72100; 73502; 80053; 81001; 82550; 84484; 85025; 87502; 87635; 93005; 96372; 99284; 99285; J1885

== ENCOUNTER → 2025-07-13 11:27 | Outpatient (BNV) | payer MEDICARE, OTHER, SELFPAY | PROVIDERS: Emergency Provider Emergency Medicine; PCP Nurse Practitioner Family; Visit Provider Radiology Diagnostic Radiology | DX: M25.551 Pain in right hip (principal); M54.2 Cervicalgia; M51.360 Other intervertebral disc degeneration, lumbar region with discogenic back pain only; R53.83 Other fatigue | CPT/HCPCS: 72100 ==

== ENCOUNTER → 2025-07-13 12:01 | Outpatient (BNV) | payer MEDICARE, OTHER, SELFPAY | PROVIDERS: Emergency Provider Emergency Medicine; PCP Nurse Practitioner Family; Visit Provider Internal Medicine Cardiovascular Disease | DX: R53.81 Other malaise (principal) | CPT/HCPCS: 93010 ==

== ENCOUNTER 2025-07-15 11:06 | Emergency (ER) | payer MEDICARE, OTHER, SELFPAY ==
--- OUTSIDE RECORDS SUMMARY | 2024-06-14 09:40 | XMS_ITS ---
Author Organization [facility] Address [address] [place] [phone] Care Team Providers Care Model Maker Plaster Name Role Phone Jovana Pal CNP Primary Care Provider Chin Parish [phone] REASON FOR VISIT stomach is a mess Encounters Encounter Location Date Provider Diagnosis [facility] [address] [place] [address] 06/14/2024 Chin Garcia Plan Of Treatment No Information Progress Notes * BRIANNA HARKINS ADOB: 7 (79 yo F)Acc No.[id number]:06/14/2024 Progress Notes Patient: BRIANNA STEPHENS Provider: Ford Garcia MD :1945 A ge:78 Y S ex:Female Date:06/14/2024 Address:[address] [place], [place] [phone] Pcp:Jovana Pal CNP Subjective: * Chief Complaints: * 1 . Stomach is a mess. * Medical History: Objective: * Vitals: Assessment: Plan: * Treatment: * * The named appointment provid er may or may not be the originator of this progress note, and it is not deemed complete until electronically signed by the appointment provider. Sign off status: Pending * Provider: Ford Garcia MD Date: 0 06/14/2024 Generated for Maykel franz/Dusty/eTransmitting on: 1 03:11 PM EDT
--- OUTSIDE RECORDS SUMMARY | 2024-08-19 10:45 | XMS_ITS ---
Author Organization [facility] Address [address] [place] [address] Care Team Providers Care Special Distribution Clerk Name Role Phone Jovana Pal Primary Care Provider Zaida Elam [phone] Encounters Encounter Location Date Provider Diagnosis [address] [address] 08/19/2024 Zaida Estrada Plan Of Treatment Next Appt Details Provider Name:Zaida Estrada , 07/24/2025 11:15:00 AM, [address] [place], [address], Progress Notes * Serena SANABRIA ADOB: 7 (79 yo F)Acc No.[id number]:08/19/2024 Progress Note Patient: Serena STEPHENS Provider: Agnelica Estrada DPM :1945 A ge:78 Y S ex:Female Date:08/19/2024 Address:[address] [place] [address] Pcp:Jovana Pal Subjective: * Chief Complaints: * * Medical History: Objective: * Vitals: Assessment: Plan: * Treatment: * Images: * The named appointment provid er may or may not be the originator of this progress note, and it is not deemed complete until electronically signed by the appointment provider. Sign off status: Pending * Provider: Angelica Estrada DPM Date: 10/19/2023 Generated for Maykel franz/Dusty/Latia on: 1 03:11 PM EDT
--- OUTSIDE RECORDS SUMMARY | 2024-12-19 10:30 | XMS_ITS ---
Author Organization [facility] Address [address] [place] [address] Care Team Providers Care Continuous Improvement Intern Name Role Phone Jovana Pal Primary Care Provider Zaida Elam [phone] Encounters Encounter Location Date Provider Diagnosis [address] [address] 12/19/2024 Zaida Estrada Plan Of Treatment Next Appt Details Provider Name:Zaida Estrada , 07/24/2025 11:15:00 AM, [address] [place], [address], Progress Notes * Serena SANABRIA ADOB: [birth year] (79 yo F)Acc No.[id number]:12/19/2024 Progress Note Patient: Serena STEPHENS Provider: Angelica Estrada DPM :1945 A ge:79 Y S ex:Female Date:12/19/2024 Address:[address] [place] [address] Pcp:Jovana Pal Subjective: * Chief Complaints: * * Medical History: Objective: * Vitals: Assessment: Plan: * Treatment: * Images: * The named appointment provid er may or may not be the originator of this progress note, and it is not deemed complete until electronically signed by the appointment provider. Sign off status: Pending * Provider: Angelica Estrada DPM Date: 0 12/19/2024 Generated for Maykel franz/Dusty/Latia on: 1 03:11 PM EDT
[2025-07-15] VITALS (9 sets, daily range): BP systolic 97–157; BP diastolic 31–102; PULSE 120–140; RESP 20–42; TEMP 36.8–36.9; O2SAT 93–99; BMI 40.3
--- NOTE | ~2025-07-15 | XR_ITS ---
EXAMINATION: XR HIP, RIGHT CLINICAL INFORMATION: Fall out of bed, right hip pain, R/O fracture COMPARISON: 07/13/2025. TECHNIQUE: AP pelvis, and Two views of the right hip. FINDINGS: There is no fracture, dislocation, or suspicious bone lesion. The hip joints appear intact. There is mild degenerative arthrosis in both hip joints. The pelvis appears intact. Mild degenerative changes in both SI joints. No soft tissue abnormalities. XR/XR hip RT w PEL1V IMPRESSION: No acute bony abnormality. Electronically signed by: Sam Cr MD 07/15/2025 01:40 PM EDT
--- NOTE | ~2025-07-15 | CT_ITS ---
EXAMINATION: CT HEAD WITHOUT CONTRAST CLINICAL INFORMATION: Following out of bed. Head strike. COMPARISON: CT brain 06/20/2020 TECHNIQUE: Contiguous axial imaging was performed from the skull base to vertex without intravenous administration of contrast. This CT examination was performed using dose optimization techniques as appropriate, variously including the following: *Automated exposure control *Adjustment of mA and/or kV according to patient size (this includes techniques or standardized protocols for targeted exams where dose is matched to indication/reason for exam; i.e. extremities or head) *Use of iterative reconstruction technique DLP: 800 mGy/cm. FINDINGS: There is layering of acute blood within both occipital horns of lateral ventricle, new since the previous exam 06/20/2020. There are no additional areas of acute bleed. No acute infarction in evolution. Punctate lacunar infarct visualized in the general of right internal capsule. Ventricles are symmetrical in size and configuration but mildly enlarged. The cortical sulci are mildly prominent as well. There is a punctate lacunar infarction in genu of right internal capsule. Bone windows reveal no calvarial abnormality. Bilateral paranasal sinuses and mastoid air cells are well-aerated. There is no scalp soft tissue abnormality. There is mild deviation of nasal septum to the right with moderate spur CT/CT head/brain wo IV con IMPRESSION: Acute layering of blood in bilateral occipital horns lateral ventricle. No additional areas of bleed seen. Results were immediately called to referring physician Dr. Fabio Peters in ED by phone at 1:40 PM Electronically signed by: Azam Sotelo MD 07/15/2025 02:11 PM EDT
--- NOTE | ~2025-07-15 | XR_ITS ---
EXAMINATION: XR CHEST CLINICAL INFORMATION: Weakness, fall rule out pneumonia COMPARISON: 07/13/2025. TECHNIQUE: Frontal view of the chest was obtained. FINDINGS: The cardiac, hilar, and mediastinal contours are normal. Lungs demonstrate subtle, patchy airspace disease bilaterally, suggesting atypical or multifocal pneumonia. No pneumothorax or effusion. No focal osseous or soft tissue abnormality. XR/XR chest 1V IMPRESSION: 1. Subtle airspace opacities in both lungs, suggesting atypical or multifocal pneumonia. Electronically signed by: Sam Cr MD 07/15/2025 12:38 PM EDT
--- NOTE | 2025-07-15 11:49 | ED.FALL ---
HPI - Fall General Chief Complaint: Fall Stated Complaint: weakness 1 week Time Seen by Provider: 07/15/25 11:48 Source: patient Mode of arrival: EMS Limitations: no limitations History of Present Illness ED Provider: Dr. Jus Peters HPI Narrative: 79-year-old female with a history of osteoporosis, hyperlipidemia, hypertension, bilateral total knee replacement, cholecystectomy who presents emergency department for evaluation of fall out of bed and right lower extremity pain. Patient was seen in the emergency department on 07/13/2025 (2 days prior) for right-sided hip pain radiating down to her right lower extremity, neck pain x2 days which started after she started physical therapy. At that ED visit, she also complained of flu-like symptoms with diarrhea, chills, malaise, poor oral intake. Patient had x-rays of her chest, right hip and pelvis and cervical spine which revealed no acute findings. The patient had a lumbar spine x-ray which revealed chronic appearing compression fractures of the L1 and L4 vertebrae with no retropulsion into the canal. She had multi-level moderate degenerative changes of the lumbar spine. She had laboratory evaluation which was unremarkable with non elevated troponins times, negative urinalysis with negative culture and negative COVID 19, influenza. Yamini's discharged home with a prescription for tramadol and she states she has been taking this medication but it made her very fatigued and tired The patient states that since going home she has lost her appetite has not been able to eat but he has been able to drink small amounts of Gatorade. She states that yesterday, she was able to walk with her walker but was very weak and slow. She states that this morning she fell out of bed. She is not certain if she hit her head or lost consciousness. Her was unable to get her off the floor and she lied on the floor for proximally 3 hours prior to her calling an ambulance. She is currently complaining of 5/10 pain in her right hip radiating t to her right foot. She denied fever but subjective chills. She felt short of breath. She did have loose diarrheal stool which attributes this to your IBS. She denied dysuria but did have urinary frequency. Related Data Home Medications ?Medication ?Instructions ?Recorded ?Confirmed cholecalciferol (vitamin D3) 1,250 1,250 mcg PO QWEEK 10/13/20 mcg (50,000 unit) capsule fluoxetine 10 mg capsule 10 mg PO DAILY 07/14/20 lorazepam 0.5 mg tablet 0.5 mg PO BEDTIME PRN 07/14/20 omeprazole 20 mg capsule,delayed 20 mg PO DAILY 07/14/20 release vitamin B complex (B 1 tab PO DAILY 07/14/20 Complex-Vitamin B12 tablet) calcium carbonate (Calcium 500) 500 mg PO DAILY 08/05/20 amlodipine 5 mg tablet 5 mg PO DAILY 05/23/24 atorvastatin 40 mg tablet 40 mg PO DAILY 05/23/24 famotidine 40 mg tablet 40 mg PO BID 05/23/24 quetiapine 25 mg tablet 25 mg PO BEDTIME 05/23/24 valsartan 160 mg tablet 160 mg PO DAILY 05/23/24 Previous Rx's ?Medication ?Instructions ?Recorded arm brace (Wrist Brace) #1 ea 09/17/20 [id number] 250 1 tab PO Q6H PRN headache #10 tabs 05/23/24 mg-250 mg-65 mg tablet (Excedrin Migraine) diphenhydramine HCl 25 mg capsule 50 mg (2 x 25 mg) PO Q8H PRN 05/23/24 (Benadryl) nausea and vomiting #10 caps tramadol 50 mg tablet 50 mg PO Q8H PRN pain #9 tabs 07/13/25 Allergies Allergy/AdvReac Type Severity Reaction Status Date / Time No Known Allergies Allergy Verified 07/15/25 11:45 FOR[facility]LY [facility] Past Medical History Medical History Osteoporosis History of hyperlipidemia HTN (hypertension) Surgical History History of cholecystectomy History of total bilateral knee replacement Social History Social History Alcohol intake: never Patient Tobacco Use Status: Never used Tobacco Advance Directives: Yes Advance Directives Information Provided: Yes Advance Directives on File: No Physical Exam Vital Signs: Vital Signs: Last Vital Signs Temp 98.3 F 07/15/25 14:57 Pulse 140 H 07/15/25 14:57 Resp 42 H 07/15/25 14:57 BP 157/59 H 07/15/25 14:57 Pulse Ox 93 10/14/25 14:57 O2 Del Method Room Air 07/15/25 14:57 BMI result Body Mass Index 40.3 Vital signs revealed an elevated heart rate of 128 Exam: General: Awake, alert in no distress, weight 113 point 4 kg, elevated BMI 40.4 kilograms/meters sq Head: Normocephalic, atraumatic EENT: PERRL, sclera and conjunctiva are normal, mouth with no erythema or exudates, dry mucous member Neck: Supple, no adenopathy Lung: breath sounds symmetric, no wheezing, no rales and no rhonchi Chest: symmetric movement, nontender Heart: Tachycardia with a regular rhythm, normal S1-S2, no murmurs rubs or go Abdomen: soft, non-tender, nondistended, normal bowel sounds Back: no vertebral tenderness, no CVAT Extremities: no deformities, patient is able to hold her upper extremities against gravity with good strength the patient is not able to lift her lower extremities up off the stretcher or move them from [id number]. Neuro: General: ?Awake, alert, oriented, normal speech Cranial nerves: ?Cranial nerves 2 through 12?intact Strength: ?Able to hold upper extremities up against gravity, not able to lift legs off the stretcher move them [id number], not able to pull herself has been upright sitting position on the stretcher Psych: Pleasant, cooperative Medications Administered Discontinued Medications Generic Name Dose Route Start Last Admin Trade Name Freq PRN Reason Stop Dose Admin Ceftriaxone Sodium 1 gm 07/15/25 14:10 07/15/25 15:04 Ceftriaxone Sodium 1 Gm Vial IVPUSH 07/15/25 14:11 1 gm ONCE ONE Administration Sodium Chloride 1,000 mls @ 999 mls/hr 07/15/25 12:33 07/15/25 14:03 Ns IV 07/15/25 13:33 999 mls/hr .Q1H1M STA Administration Azithromycin 500 mg/ Sodium 250 mls @ 125 mls/hr 07/15/25 14:10 07/15/25 15:04 Chloride IV 07/15/25 16:09 125 mls/hr ONCE ONE Administration Medical Decision Making Medical Decision Making MDM Narrative: 79-year-old female with a history of osteoporosis, hyperlipidemia, hypertension, bilateral total knee replacement, cholecystectomy who presents emergency department for evaluation of fall out of bed with right hip pain radiating to her right foot, loss of appetite x3, diarrhea x1. Patient fell lethargic and tired yesterday and had difficulty walking with a walker. This morning she fell out of bed and landed on a carpeted floor, she was on the floor for 3 hours prior to an ambulance being called. Patient was seen on 07/13/2025 for right hip and lower extremity pain, neck pain, flu-like illness. ED workup was negative except for chronic compression fractures L1-L4. The patient was discharged home on tramadol. Currently she is complaining of 5/10 right hip and right lower extremity pain. Review of systems was positive for diarrhea, chills and generalized weakness. Vital signs revealed that she was tachycardic with a heart rate of 126. Patient has significant generalized weakness, she is having difficulty sitting up in the stretcher and lower extremity weakness. She also had pain with palpation of her right hip and with movement of her right leg .Differential diagnosis: ?Includes but is not limited to skull fracture, intracranial bleed, stroke, right hip fracture, right pelvic fracture, anemia, electrolyte abnormalities, viral syndrome, dehydration, volume the patient, Course: 13:53 My independent interpretation patient's laboratory evaluation is as follows: WBC elevated 18,200 with 75 neutrophils and 15 bands. Normocytic anemia with an H&H of 10 and 31.1 compared to an H&H of 10.4 and 31.4 on 07/13/2025. PTT and INR elevated 13.6 and 1.2. PTT pending. Bicarb low 18. BUN and creatinine elevated 32 and 2.03-elevated compared to 07/13/2025 when BUN and creatinine was 25 and 1. 29. Glucose elevated 119 total bili elevated 1.5, direct bili elevated 0.7. AST elevated 1 0 1 creatinine elevated 4791. High sensitivity troponin I elevated 158.3. Urinalysis was positive for protein, blood, leukocyte esterase microscopic revealed 0-2 RBCs, 0-5 WBCs, greater than 20 squamous cells, no bacteria-non clean catch specimen 14:[address] head without contrast revealed acutely area blood in the bilateral occipital horns of the lateral ventricles with no additional bleeding seen. I did discuss this finding with the trauma attending, Dr. Haq , who is covering for [facility]. You recommended that the patient be transferred as an ED to ED transfer for further evaluation of this bleed. Chest x-ray was concerning for possible pneumonia therefore I ordered blood cultures x2, lactic acid, ceftriaxone 1 g IV and azithromycin 500 mg IV. 16:07 Lactic acid was elevated 2.4. NT-proBNP elevated 19,671. Repeat high sensitive troponin I is pending. 16:32 Patient remain tachycardic. Therefore repeated her 12 lead EKG. EKG revealed a sign tachycardia with a rate of 146 with normal intervals with no ST segment elevation or depression Differential Diagnosis Differential Diagnoses: The differential diagnosis associated with the presentation includes (See above) Admission/Observation Consideration of admission/observation: Escalation of care including admission/observation considered (Yes) Lab Data MDM Lab Attestation statement: I reviewed the patient's lab results. 07/15/25 12:14 07/15/25 12:14 Labs: Lab Results 07/15/25 07/15/25 07/15/25 Range/Units 12:14 12:17 14:42 WBC 18.2 H (4.8-10.8) X10*3/uL RBC 3.10 L (4.20-5.50) X10*6/uL Hgb 10.0 L (12.0-16.0) g/dl Hct 30.1 L (37.0-47.0) % MCV 97.1 (80.0-98.0) fL MCH 32.3 (27.0-33.0) pg MCHC 33.2 (31.0-35.0) g/dl RDW 13.1 (11.0-16.0) % Plt Count 164 (160-400) X10*3/uL MPV 10.1 (9.4-12.3) fL Immature Gran % (Auto) Cancelled Neut % (Auto) Cancelled Lymph % (Auto) Cancelled [place] % (Auto) Cancelled Eos % (Auto) Cancelled Baso % (Auto) Cancelled Lymph # (Auto) Cancelled [place] # (Auto) Cancelled Eos # (Auto) Cancelled Baso # (Auto) Cancelled Abs Immat Gran (auto) Cancelled Absolute Neuts (auto) Cancelled Absolute Nucleated RBC 0.000 (0.0-0.012) X10*3/uL Nucleated RBC % (auto) 0.0 (0.0-0.2) /100WBC Neutrophils % (Manual) 75 H (45-73) % Band Neutrophils % 15 H (3-5) % Lymphocytes % (Manual) 3 L (20-40) % Monocytes % (Manual) 7 (2-11) % Abs Neuts (Manual) 16.4 H (2.0-8.3) X10*3/uL Lymphocytes # (Manual) 0.5 L (1.2-4.9) X10*3/uL Monocytes # (Manual) 1.3 H (0.1-1.2) X10*3/uL Toxic Granulation PRESENT Toxic Vacuolation PRESENT Dohle Bodies PRESENT Platelet Estimate NORMAL (NORMAL) Plt Morphology Comment NORMAL RBC Morphology NORMAL PT 13.6 H (10.9-12.4) SEC INR 1.2 H (0.9-1.1) APTT 25.4 L (26.7-34.1) SEC Sodium 139 (135-145) mmol/L Potassium 3.5 (3.3-5.1) mmol/L Chloride 108 (96-108) mmol/L Carbon Dioxide 18 L (22-29) mmol/L Anion Gap 17 (12-20) BUN 32 H (9-16) mg/dL Creatinine 2.03 H (0.5-1.4) mg/dL Estim Creat Clear Calc 29.6 Estimated GFR 24 Random Glucose 119 H (60-115) mg/dL Lactic Acid 2.4 H* (0.5-2.0) mmol/L Calcium 8.9 (8.4-10.2) mg/dL Magnesium 1.9 (1.6-2.6) mg/dL Total Bilirubin 1.5 H (0.0-1.0) mg/dL Direct Bilirubin 0.7 H (0.0-0.5) mg/dL AST 101 H (5-31) U/L ALT 21 (0-31) U/L Alkaline Phosphatase 74 (39-117) U/L Total Creatine Kinase 4791 H (26-140) U/L Troponin I High Sens 158.3 H* D (<3.5-17.0) ng/L NT-Pro-B Natriuret Pep 98517.4 H (<300) pg/mL Total Protein 6.6 (6.5-8.0) g/dL Albumin 3.9 (3.5-5.0) g/dL Lipase 6 L (8-78) U/L Urine Color Dark Yellow Urine Appearance Turbid Urine pH 5.0 (5.0-9.0) Ur Specific [place] 1.020 (1.005-1.025) Urine Protein 100 (2+) H (Neg-Trace) mg/dL Urine Glucose (UA) Negative (Negative) mg/dL Urine Ketones Trace (Negative) mg/dL Urine Blood Large (3+) H (Negative) Urine Nitrite Negative (Negative) Ur Leukocyte Esterase Trace H (Negative) Urine RBC 0-2 (0-2) /HPF Urine WBC 0-5 (0-5) /HPF Ur Squamous Epith Cells >20 (0-2) /HPF Other Crystals Present Urine Bacteria None Seen (None Seen) Hyaline Casts 3-5 (0-2) /LPF Granular Casts Present COVID-19 (GEMA) Negative (Negative) COVID-19 Clin Com See Note Influenza Type A (ZAY) Negative (Negative) Influenza Type B (ZAY) Negative (Negative) Influenza A & B Note See Note Independent Interpretation I performed an independent interpretation of an: EKG and Plain X-Ray Interpretation: My independent interpretation of the patient's 12 EKG is as follows, sinus tachycardia rate 133, first-degree AV block with prolonged FL interval of 200 milliseconds, no ST segment elevation, no ST segment depression, inverted T-waves 2, 3, AVF, occasional PAC, occasional PVC. Compared to EKG dated 07/13/2025 at 14:18 hours, FL interval was similar to 104 milliseconds, inverted T-waves in 2 3 and F are new, PACs and PVCs are new. My independent interpretation patient's 12 EKG done on 07/15/2025 at 16:32 hours is as follows: Sinus tachycardia with a rate of 146, normal FL interval, QRS duration QTC interval, no ST segment elevation, no ST segment depression, no significant T-wave abnormalities. My independent interpretation of the one-view chest x-ray is as follows: Bilateral interstitial infiltrates possible bilateral pneumonia Radiology Impression Discussion of test interpretation with radiology: I have reviewed the radiologist's reading. Radiologist Impression: XR chest 1V IMPRESSION: 1. Subtle airspace opacities in both lungs, suggesting atypical or multifocal pneumonia. Electronically signed by: Sam Cr MD 07/15/2025 12:38 PM EDT XR hip RT w [id number] IMPRESSION: No acute bony abnormality. Electronically signed by: Sam Cr MD 07/15/2025 01:[address] head/brain wo IV con IMPRESSION: Acute layering of blood in bilateral occipital horns lateral ventricle. No additional areas of bleed seen. Results were immediately called to referring physician Dr. Fabio Peters in ED by phone at 1:40 PM Electronically signed by: Azam Sotelo MD 07/15/2025 02:11 PM EDT RP Chronic Conditions Patient?s care impacted by: Hypertension and Other (Hyperlipidemia) Critical Care Time Critical Care Time Critical Care Time: Yes Total Critical Care Time: 80 Attestation: Critical Care: The patient was critically ill with a high probability of imminent or life threatening deterioration. I spent greater than 30 minutes of discontinuous time evaluating the patient,delivering critical care at the bedside, discussing and evaluating pertinent data with consultants. Critical care time does not include time spent performing separately billable procedures or teaching. Total time spent performing critical care was 80 minutes. Discharge Plan Discharge Clinical Impression: Ventricular hemorrhage, Elevated troponin I level, Elevated brain natriuretic peptide (BNP) level, Lower back pain, Acute pain of right lower extremity Pneumonia Qualifiers: Laterality: bilateral Lung location: lower lobe of lung Patient Disposition: [facility] Transfer Details: ED to ED [facility], accepting physician is trauma attending, Dr. Haq Prescriptions: No Action diphenhydramine HCl [Benadryl] 25 mg capsule 50 mg PO Q8H PRN (Reason: nausea and vomiting) Qty: 10 0RF Excedrin Migraine 250-250-65 mg tablet 1 tab PO Q6H PRN (Reason: headache) Qty: 10 0RF tramadol 50 mg tablet 50 mg PO Q8H PRN (Reason: pain) Qty: 9 0RF amlodipine 5 mg tablet 5 mg PO DAILY valsartan 160 mg tablet 160 mg PO DAILY atorvastatin 40 mg tablet 40 mg PO DAILY quetiapine 25 mg tablet 25 mg PO BEDTIME famotidine 40 mg tablet 40 mg PO BID vitamin B complex [B Complex-Vitamin B12] Tablet 1 tab PO DAILY fluoxetine 10 mg capsule 10 mg PO DAILY omeprazole 20 mg capsule,delayed release(DR/EC) 20 mg PO DAILY lorazepam 0.5 mg tablet 0.5 mg PO BEDTIME PRN cholecalciferol (vitamin D3) 1,250 mcg (50,000 unit) capsule 1,250 mcg PO QWEEK calcium carbonate [Calcium 500] 500 mg calcium (1,250 mg) tablet 500 mg PO DAILY (DME) Wrist Brace Misc See Rx Instructions .MEDSUPPLY Qty: 1 0RF Rx Instructions: comfort form wrist/thumb rt m Print Language: Jamaican
--- NOTE | 2025-07-15 11:51 | ECG_ITS ---
Test Reason : tachycardia Blood Pressure : */* mmHG Vent. Rate : 133 BPM Atrial Rate : * BPM P-R Int : * ms QRS Dur : 76 ms QT Int : 384 ms P-R-T Axes : * 78 21 degrees QTcB Int : 571 ms SInus Tachycardia with PVCs Nonspecific ST and T wave abnormality Abnormal ECG When compared with ECG of 13-Jul-2025 14:18, Vent. rate has increased by 51 bpm Inverted T waves have replaced nonspecific T wave abnormality in Inferior leads Referred By: Generic ED Physician Electronically Signed By: Vidal Geller
[2025-07-15 12:28] LABS: Appearance Urine Turbid; Glucose Urine UA Negative (Negative); PH 5.0 (5.0-9.0); Specific Gravity - Urine 1.020 (1.005-1.025); UMIC TRIGGER UACC YES
[2025-07-15 12:30] LABS: Hematocrit 30.1 % (37.0-47.0); Hemoglobin 10.0 g/dl (12.0-16.0); Mean Corpuscular HGB Conc 33.2 g/dl (31.0-35.0); Mean Corpuscular Hemoglobin 32.3 pg (27.0-33.0); Mean Corpuscular Volume 97.1 fL (80.0-98.0); NRBC Abs Auto 0.000 X10*3/uL (0.0-0.012); NRBC Pct Auto 0.0 /100WBC (0.0-0.2); Platelet Count 164 X10*3/uL (160-400); Red Blood Count 3.10 X10*6/uL (4.20-5.50); White Blood Count 18.2 X10*3/uL (4.8-10.8)
[2025-07-15 12:39] LABS: Other Crystals Urine Present
[2025-07-15 12:44] LABS: Anion Gap 17 (12-20); Blood Urea Nitrogen 32 mg/dL (9-16); Calcium 8.9 mg/dL (8.4-10.2); Carbon Dioxide 18 mmol/L (22-29); Chloride 108 mmol/L (96-108); Creatinine Clr Calc Pharmacy 29.6; Estimated Glomerular Filt Rate 24; Potassium 3.5 mmol/L (3.3-5.1); Sodium 139 mmol/L (135-145)
[2025-07-15 12:49] LABS: Alanine Aminotransferase 21 U/L (0-31); Albumin Level 3.9 g/dL (3.5-5.0); Alkaline Phosphatase 74 U/L (39-117); Aspartate Amino Transferase 101 U/L (5-31); Lipase 6 U/L (8-78); Magnesium 1.9 mg/dL (1.6-2.6); Total Protein 6.6 g/dL (6.5-8.0)
[2025-07-15 12:50] LABS: INTERNATIONAL NORM RATIO 1.2 (0.9-1.1); Prothrombin Time 13.6 SEC (10.9-12.4)
[2025-07-15 12:53] LABS: Troponin-I High Sensitivity 158.3 ng/L (<3.5-17.0)
[2025-07-15 13:03] LABS: Neutrophils Percent Manual 75 % (45-73)
[2025-07-15 13:05] LABS: Band Neutrophils Percent 15 % (3-5); Lymphocytes Absolute Manual 0.5 X10*3/uL (1.2-4.9); Lymphocytes Percent Manual 3 % (20-40); Monocytes Absolute Manual 1.3 X10*3/uL (0.1-1.2); Monocytes Percent Manual 7 % (2-11); Neutrophils Absolute Manual 16.4 X10*3/uL (2.0-8.3)
[2025-07-15 13:07] LABS: RBC Morphology NORMAL
[2025-07-15 13:08] LABS: Dohle Bodies PRESENT; Toxic Granulation PRESENT; Toxic Vacuolation PRESENT
[2025-07-15 14:40] LABS: Partial Thromboplastin Time 25.4 SEC (26.7-34.1)
[2025-07-15 15:06] LABS: COVID-19 Test Negative (Negative); IDNOW Serial# 55D5AD1C; IDNOW Serial# 58CA691E; Influenza B2 Negative (Negative)
--- OUTSIDE RECORDS SUMMARY | 2025-07-15 15:11 | XMS_ITS | Data Portability ---
Author Organization [place] - [facility], [facility] Address [address] [place] [address] Assessment Encounter Date Assessment Date Assessment LastModified [...] some time difficulty sitting standing. Difficulty walking. Jrsr-yqy-ogkhdir medications have not helped. Now currently affecting [...] greater trochanter, - Milagros s , Obers, Berkeley sign, calf soft, neurovascularly intact. Back Exam. No warmth, effusion, erythema, ecchymosis. Good flexion, extension, lateral bending, and rotation,. No edema, 5/5 strength, LE, negative straight leg raise, nontender paraspinal muscles, nontender spinous processes, calf soft and nontender, neurovascularly intact, +2 reflexes, good L5/S1 function, no drop foot, no radicular symptoms. 2 X-ray views independently reviewed at [facility] o diffuse lumbar spine osteoarthritis Impression: [...] 2024 025 [email or web address] [facility] [place], [address] [place] [address], [address], 16:15:13 physical therapist referral - Evaluate & Rx Lumbar Stabilizati on Program 2023 024 [email or web address] Not available 14:58:30 Procedures None recorded. Surgeries None recorded. Imaging XR, shoulder, 2 or more view - 4v timur shldr. room 1 2024 025 NIRAJ [facility] Office, [address], [place], , [address], 5 14:36:51 XR, cervical spine, 1 view - cspine. room 1 2024 025 [email or web address] de2 [facility], [address], [place] [address], , [address], 5 14:32:42 Medication Orders Medrol (Moshe) 4 mg tablets in a dose pack 2023 024 [email or web address] [facility], [address] [place], [address], 14:17:45 Patient TargetsNo targets recorded. Patient InstructionsNo instructions recorded. Reason for Referral Physical Therapist Referral for Lumbar radiculopathy Evaluate & RxLumbar Stabilization Program Referring Physician: Meng Mcduffie, Orthopedic Surgery, [id number] Encounter Date: 01/30/2024 Physical Therapist Referral for [...] a4ajBk vP9nXo QUaueC m3YtLR FvZlgJ JJ8mAn HZtai3 9j9931 AC0Klb 3qFWKC uKiQtr MwF INTERFACE [facility] [address] [place], , [address], 05/29/2025 14:29:41 05/29/20 25 05/29/2025 XR, cervi blade spine , 1 view [email or web address]:/ [email or web address] ?Encry pted=s hAaTro YD8dLq bEUv6g %2BXZw aYqtaq 0bqfl% 2Fg9IQ a4ajBk vP9nXo QUaueC m3YtLR FvZlgJ JJ8mAn HZtai3 5p6039 AC0Klb 3qFWKC uKiQtr MwF INTERFACE [facility] [address] [place] [address], , [address], 05/29/2025 14:29:43 05/29/20 25 05/29/2025 XR, shoul alex, 2 or more view [email or web address] ?Encry pted=s hAaTro YD8dLq bEUv6g %2BXZw aYqtaq 0bqfl% 2Fg9IQ a4ajBk vP9nXo QUaueC m3YtLR FvZlgJ JJ8mAn HZtai3 1j0093 AC0Klb 3qFWKC hKiQtr MwF INTERFACE [facility] [address] [place] [address], , [address], 05/29/2025 14:36:53 05/29/20 25 05/29/2025 XR, shoul alex, 2 or more view [email or web address] ?Encry pted=s hAaTro YD8dLq bEUv6g %2BXZw aYqtaq 0bqfl% 2Fg9IQ a4ajBk vP9nXo QUaueC m3YtLR FvZlgJ JJ8mAn HZtai3 8a2749 AC0Klb 3qFWKC hKiQtr MwF INTERFACE [facility] [address] [place], , [address], 05/29/2025 14:36:55 Result Notes Documentation Provider Name and Address Organization Details Recorded Time Xr, Cervical Spine, 1 View : [email or web address] Encrypted=tbMxOolVX3dFebI Uv6g%3EEVgxZaeju0lkpy%2Fg 9RQc2imAdxW3kRoCEkfnCo3Mt FPEzVjwBRL9jHgMRxzy81t149 4AP8Xwb3pSRQIjYlSsqCtX Not Available [facility] 05/29/2025 14:29: 42 Xr, Cervical Spine, 1 View : [email or web address] Encrypted=iySpOjkHJ9pMsuD Uv6g%9YPTdnUjbdn7wbkl%2Fg 4RWn4hbQvpH7yWhRHtufCr6Er VXGbYfeNQA6gVlICruc04p031 0IV1Oux0oHVXSvBcIxjQfD Not Available [facility] 05/29/2025 14:29: 43 Xr, Shoulder, 2 Or More View : [email or web address] Encrypted=kzStKroDP0uMkcO Uv6g%9QFDtsAblac3hibt%2Fg 9PIr9jhHnkF4jZyTVscrMd6Ku YWUySguIFW8uOqPQkrx47p542 5VQ1Bgh9kKMWWpCaJpsZsQ Not Available [facility] 05/29/2025 14:36: 54 Xr, Shoulder, 2 Or More View : [email or web address] Encrypted=qjOtAqrJV4kNxgV Uv6g%1WTAuvFykbv3dmne%2Fg 4NEj4amUwnN7iBsMRffsIj9Cl LLPxIfsGGP5qRnCBnok03g435 9RM7Knp4sOQQBnKlSjbDuR Not Available [facility] 05/29/2025 14:36: 55 Problems Name Problem SNOMED Code Status Onset Date Resolution Date Notes Provider Name and Address Organization Details Recorded Time Idiopathi c osteoarth radha 398576909 Active 2016 Problem Code: M17.12; Problem Code Type: ICD-10; Status: 'A'; Not Available [facility] 4 11:42:16 Knee joint prosthesi s present 386250735263 Active 2019 Problem Code: Z96.652; Problem Code Type: ICD-10; Status: 'A'; Not Available [facility] 4 11:42:16 Trochante hazel bursitis of right hip 708043606201 100 Active 2023 Meng Mcduffie PA-C [address], [place], [address] , [facility] 4 08:45:31 Trochante hazel bursitis of left hip 930002408518 103 Active 2023 Meng Mcduffie PA-C [address], [place], [address] , [facility] 4 08:45:38 Lumbar radiculop athy 068778991 Active 2023 [facility] 4 13:49:38 Problem Notes None recorded. Procedures Surgical History Date Name Laterality Status Provider Name and Address Organization Details Recorded Time 07/10/2024 JZHip Inj completed Meng Mcduffie PA-C [address], , [address], [facility] 07/10/2024 09:21:08 12/21/2023 JZHip Inj Timur completed Meng Mcduffie PA-C [address], , [address], [facility] 12/21/2023 08:45:11 Imaging Results [...] Updated DateTime 12/21/2023 167.64 cm 40.4 kg/m2 042129.09 g MADELYN FAYE [place] [facility] 12/21/2023 08:44:20 Date Recorded Body height Body mass index (BMI) Body weight Provider Name and Address Organization Details Last Updated DateTime 01/30/2024 167.64 cm 40.4 kg/m2 168810.09 g MADELYN FAYE [facility] 01/30/2024 13:45:45 Date Recorded Body height Body mass index (BMI) Body weight Provider Name and Address Organization Details Last Updated DateTime 05/29/2025 167.64 cm 40.4 kg/m2 801827.09 g Astrid Dutta [facility] 05/29/2025 14:17:16 Date Recorded Body height Body mass index (BMI) Body weight Provider Name and Address Organization Details Last Updated DateTime 07/10/2024 167.64 cm 40.4 kg/m2 517225.09 g Antonio Melgar [facility] 07/10/2024 08:36:41 Social History None recorded. Functional Status None recorded. Mental Status None recorded. Family History Nothing Reported. Medical History No medical history recorded. Gynecological HistoryNo gynecological history recorded. Obstetrics History GPAL:G 0 P 0 0 0 0 Past Encounters Encounter ID Performer Location Encounter Start Date Encounter Closed Date Diagnosis/Indication Diagnosis SNOMED-CT Code Diagnosis ICD10 Code Diagnosis IMO Codes Diagnosis Note [id number] MD Parker Noguera [address] [place] [address] 12/21/2023 08:36:08 12/21/2023 08:54:30 Trochanteric bursitis of right hip 7449790704 12935 M70.61 Trochanter ic bursitis of left hip 3720349690 43423 M70.62 [id number] LEROY Jaramillo [address] [place] [address] 01/30/2024 13:42:33 02/20/2024 13:48:06 Idiopathic osteoarthritis 321943683 M17.12 Lumbar radiculopathy 128 767208 M54.16 [id number] LEROY Jaramillo [address] [place] [address] 07/10/2024 08:29:06 08/05/2024 14:43:21 Trochanteric bursitis of left hip 0005269009 84459 [address]70.[id number] [place] [address] 05/29/2025 13:45:55 06/10/2025 11:05:41 Pain of bilateral shoulder regions 8156543568 32981 M25.511 M25.512 14492686 Bilateral rotator cuff syndrome 5477677188 9257575 M75.101 M75.102 [id number] Health Concerns Section Related Observation LastModified by Organization Detai ls LastModified Time None Recorded Concern Status LastModified by Organization Details LastModified Time None Recorded Advance Directives Directive None Recorded Payers Insurance Date Sequence Insurance Name Policy Number Policy Carrera Covered Member ID Carrera Member ID Guarantor Name 05/26/2025 1 [place]ICARE [place]: [employer] Serena Sanabria [id number] Serena Sanabria 07/04/2025 2 FOR LIFE () Serena Sanabria [id number] Serena Sanabria Notes Date Note Type Note [...] us as needed. Pablito Mercedes PA-C [address] [facility] [address], , [address], [facility] - [place] [facility] 05/29/2025 14:53:44 OBGyn Episode No OBEpisode recorded.
--- OUTSIDE RECORDS SUMMARY | 2025-07-15 15:11 | XMS_ITS | Patient Health Record ---
Author Organization [facility] Address [address] [place] [address] Care Team Providers Care Historian Dramatic Arts Name Role Phone Kae Jovana CORCORAN Primary Care Provider Chin Parish [phone] Allergies No Known Allergies Reason For Referral [...] Status W/U Status Risk Notes Problem Diarrhea (77695548) Diarrhea (R19.7) Active confirmed Problem Anorexia (84392322) Anorexia (R63.0) Active confirmed Problem Irritable bowel syndrome (12650838) Irritable bowel syndrome with both constipation and diarrhea (K58.2) Active confirmed Problem Gastroesophageal reflux disease (disorder) (083133437) Chronic GERD (K21.9) Active confirmed Plan Of Treatment Pending Test Test Name Order Date CELIAC PANEL #10 03/01/2024 Insurance Providers Payer Name Payer Address Payer Phone Subscriber Number Group Number Insured Name Patient Relationship to Insured Coverage Start Date Coverage End Date MEDICARE OF [place] [address] [place] [address] [id number] BRIANNA HARKINS Self - patient is the insured [facility] [id number] [address] [place] [address] [id number] BRIANNA HARKINS Self - patient is the insured Medical (General) History Medical History History ICD Code Colonoscopy in 2008 was negative except for diverticulosis Upper endoscopy in 2007 was negative except for a small hiatal hernia and minimal gastritis--biopsies were negative for H. pylori Anxiety and depression Hypertension Colonoscopy in 2015 at [facility] was negative, without any sign of polyps no inflammatory bowel disease--colon biopsies were negative for microscopic colitis Upper endoscopy in 2019 at [facility] was negative except for a hiatal hernia--esophageal biopsies were negative for eosinophilic esophagitis-gastric and duodenal biopsies were not obtained Osteoporosis She reports that she had neg ative celiac disease laboratories in approximately 2019 Hyperlipidemia Irritable bowel syndrome GERD Surgical History Surgery Date(Month/Year) Right knee replacement in 2007 Cholecystectomy Left knee Bilateral eye surgery
--- OUTSIDE RECORDS SUMMARY | 2025-07-15 15:11 | XMS_ITS | Patient Health Record ---
Author 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 [address] 09/12/2024 Zaida Black Pain in right toe(s) M79.674 ; Onychomycosis B35.1 and Pain in left toe(s) M79.[address] [address] 03/24/2025 Zaida Black Onychomycosis B35.1 ; Osteoarthritis of right ankle or foot M19.071 ; Pain in right toe(s) M79.674 ; Pain in left toe(s) M79.675 and Arthralgia of right ankle M25.[address] [address] 08/19/2024 Zaida Black [address] [address] 12/17/2024 Zaida Black Assessments Encounter Date Diagnosis [...] Treatment Pending Test Test Name Order Date 89570-TJVRJLF NAIL, 6 OR MORE 04/22/2021 03631-TFELGMT NAIL, 6 OR MORE 04/21/2022 16664-LRFGTNK NAIL, 6 OR MORE 08/29/2022 17442-SKSFVBB NAIL, 6 OR MORE 12/26/2022 89234-PZDBOYI NAIL, 6 OR MORE 05/01/2023 92679-MEOTZVH NAIL, 6 OR MORE 08/14/2023 61521-VTGWEGJ NAIL, 6 OR MORE 11/09/2023 68326-EPXBPUZ NAIL, 6 OR MORE 05/13/2024 79064-IHEHRRT NAIL, 6 OR MORE 09/12/2024 19742-HMIYJWB NAIL, 6 OR MORE 03/24/2025 40365-Mkkkuydf Plate 04/21/2022 50628-Hunggnzn Plate 05/01/2023 09191-Wcycnrks Plate 04/22/2021 96950-Gnqzbhwe Plate Each Additional 97023-Pjrdpzst Plate Each Additional Next Appt Details Provider Name:Zaida Estrada , 07/24/2025 11:15:00 AM, [address] [facility], [place], [address], Insurance Providers Payer Name Payer Address Payer Phone Subscriber Number Group Number Insured Name Patient Relationship to Insured Coverage Start Date Coverage End Date Medicare [facility] [address] [facility] [address] [id number] Serena Sanabria Self - patient is the insured [facility] [address] [place] [address] [id number] Serena Sanabria Self - patient is the [...] knee replacement 09/2019 Hospitalization History Reason Date(Month/Year) [facility]- stomach issues 08/25
--- NOTE | 2025-07-15 16:30 | ECG_ITS ---
Test Reason : REPEAT Blood Pressure : */* mmHG Vent. Rate : 146 BPM Atrial Rate : 146 BPM P-R Int : 162 ms QRS Dur : 76 ms QT Int : 308 ms P-R-T Axes : 85 98 -12 degrees QTcB Int : 479 ms Sinus tachycardia with PACs vs atrial flutter Rightward axis Nonspecific ST abnormality Abnormal QRS-T angle, consider primary T wave abnormality Abnormal ECG When compared with ECG of 15-Jul-2025 11:56, No significant changes seen Referred By: Jus Peters Electronically Signed By: Vidal Geller
[2025-07-15 16:47] LABS: Reflex Lactate? Lactic Acid Added
--- NOTE | 2025-07-16 02:29 | PC.NURSE ---
T/w took critical lab. Both sets of blood cultures back positive for Gram + cocci and clusters, as well as MRSA. T/w Called [facility] and spoke Maci STRATTON in the ED and gave her the critical results/
== END 2025-07-15 17:19 | disposition short-term general hospital (02) ==
PROVIDERS: Emergency Provider Emergency Medicine Emergency Medical Services; PCP Nurse Practitioner Family
DX: S06.34AA Traumatic hemorrhage of right cerebrum with loss of consciousness status unknown, initial encounter (principal); S06.350A Traumatic hemorrhage of left cerebrum without loss of consciousness, initial encounter; J18.9 Pneumonia, unspecified organism; A49.02 Methicillin resistant Staphylococcus aureus infection, unspecified site; R79.89 Other specified abnormal findings of blood chemistry; I50.1 Left ventricular failure, unspecified; M54.50 Low back pain, unspecified; M79.604 Pain in right leg; M25.551 Pain in right hip; M79.671 Pain in right foot; R19.7 Diarrhea, unspecified; D64.9 Anemia, unspecified; R11.0 Nausea; R06.02 Shortness of breath; R00.0 Tachycardia, unspecified; R94.31 Abnormal electrocardiogram [ECG] [EKG]; I10 Essential (primary) hypertension; X58.XXXA Exposure to other specified factors, initial encounter; W06.XXXA Fall from bed, initial encounter; Z91.81 History of falling; Y93.9 Activity, unspecified; Y92.9 Unspecified place or not applicable; Y99.8 Other external cause status; Z11.52 Encounter for screening for COVID-19; Z79.899 Other long term (current) drug therapy
CPT/HCPCS: 36415; 70450; 71045; 73502; 80048; 80076; 81001; 82550; 83605; 83690; 83735; 83880; 84484; 85007; 85025; 85027; 85610; 85730; 87040; 87077; 87147; 87186; 87205; 87502; 87635; 93005; 96361; 96374; 96375; 99285; 99291; 99292; J0456; J0696

== ENCOUNTER → 2025-07-15 11:51 | Outpatient (BNV) | payer MEDICARE, OTHER, SELFPAY | PROVIDERS: Emergency Provider Emergency Medicine Emergency Medical Services; PCP Nurse Practitioner Family; Visit Provider Internal Medicine Cardiovascular Disease | DX: I49.3 Ventricular premature depolarization (principal); R00.0 Tachycardia, unspecified | CPT/HCPCS: 93010 ==

== ENCOUNTER → 2025-07-15 12:13 | Outpatient (BNV) | payer MEDICARE, OTHER, SELFPAY | PROVIDERS: Emergency Provider Emergency Medicine Emergency Medical Services; PCP Nurse Practitioner Family; Visit Provider Radiology Diagnostic Radiology | DX: S09.90XA Unspecified injury of head, initial encounter (principal); M25.551 Pain in right hip; R53.1 Weakness | CPT/HCPCS: 70450; 71045; 73502 ==

== ENCOUNTER 2025-08-18 07:02 | Outpatient (REF) | payer SELFPAY ==
--- OUTSIDE RECORDS SUMMARY | 2024-06-14 08:40 | XMS_ITS ---
Author Organization [facility] Address [address] [place] [address] Care Team Providers Care Financial Brokers Name Role Phone Jovana Pal CNP Primary Care Provider Chin Parish [phone] REASON FOR VISIT stomach is a mess Encounters Encounter Location Date Provider Diagnosis [facility] [address] [place] [phone] 06/14/2024 Chin Garcia Plan Of Treatment No Information Progress Notes * BRIANNA HARKINS ADOB: 7 (79 yo F)Acc No.[id number]:06/14/2024 Progress Notes Patient: BRIANNA STEPHENS Provider: Ford Garcia MD :1945 A ge:78 Y S ex:Female Date:06/14/2024 Address:[address] [place], [place] [phone] Pcp:Jovana Pal CNP Subjective: * Chief Complaints: * S tomach is a mess * The named appointment provid er may or may not be the originator of this progress note, and it is not deemed complete until electronically signed by the appointment provider. Sign off status: Pending * Provider: Ford Garcia MD Date: 0 06/14/2024 Generated for Maykel franz/Dusty/eTjimmysmitting on: 10/18/2024 07:24 AM EST
--- OUTSIDE RECORDS SUMMARY | 2024-08-19 09:45 | XMS_ITS ---
Author Organization [facility] Address [address] [place] [address] Care Team Providers Care Electric Container Tester Name Role Phone Jovana Pal Primary Care Provider Zaida Elam [phone] Encounters Encounter Location Date Provider Diagnosis [address] [address] 08/19/2024 Zaida Estrada Plan Of Treatment No Information Progress Notes * Serena SANABRIA ADOB: 7 (79 yo F)Acc No.[id number]:08/19/2024 Progress Note Patient: Serena STEPHENS Provider: Angelica Estrada DPM :1945 A ge:78 Y S ex:Female Date:08/19/2024 Address:[address] [place], [place] [phone] Pcp:Jovana Pal Subjective: * Chief Complaints: * * Medical History: Objective: * Vitals: Assessment: Plan: * Treatment: * Images: * The named appointment provid er may or may not be the originator of this progress note, and it is not deemed complete until electronically signed by the appointment provider. Sign off status: Pending * Provider: Angelica Estrada DPM Date: 10/19/2023 Generated for Omairai osei/Dusty/eTransmitting on: 10/18/2024 07:25 AM EST
--- OUTSIDE RECORDS SUMMARY | 2024-12-19 09:30 | XMS_ITS ---
Author Organization [facility] Address [address] [place] [address] Care Team Providers Care Buildings And Grounds Coordinator Name Role Phone Jovana Pal Primary Care Provider Zaida Elam [phone] Encounters Encounter Location Date Provider Diagnosis [address] [address] 12/19/2024 Zaida Estrada Plan Of Treatment No Information Progress Notes * Serena SANABRIA ADOB: [birth year] (79 yo F)Acc No.[id number]:12/19/2024 Progress Note Patient: Serena STEPHENS Provider: Angelica Estrada DPM :1945 A ge:79 Y S ex:Female Date:12/19/2024 Address:[address] [place], [place] [id number] Pcp:Jovana Pal Subjective: * Chief Complaints: * [...] DPM Date: 0 12/19/2024 Generated for Omairai oesi/Faomega/eTransmitting on: 1 10/18/2024 07:25 AM EST
--- OUTSIDE RECORDS SUMMARY | 2025-07-24 06:15 | XMS_ITS ---
Author Organization [facility] Address [address] [place] [address] Care Team Providers Care Supervisor Mill Name Role Phone Kae, Jovana Primary Care Provider Zaida Elam [phone] Medications Medication SIG (Take, Route, Frequency, Duration) [...] Active Encounters Encounter Location Date Provider Diagnosis [facility] [address] [place] [address] 07/24/2025 Zaida Estrada Plan Of Treatment No Information Progress Notes * Serena SANABRIA ADOB: [birth year] (79 yo F)Acc No.[id number]:07/24/2025 Progress Note Patient: B ARTON, Serena A Provider: Angelica Estrada DPM :1945 A ge:79 Y S ex:Female Date:07/24/2025 Address:[address] [place] [address] [phone] Pcp:Jovana Pal Subjective: * Chief Complaints: * [...] DPM Date: Generated for Maykel franz/Dusty/Latia on: 10/18/2024 07:24 AM EST
--- OUTSIDE RECORDS SUMMARY | 2025-08-13 23:59 | XMS_ITS | Continuity of Care Document ---
Author Organization [facility] Address [address] [place] [address]- Support Name Relationship Address Phone TORIN, ISAURO Personal Relationship Unknown Unav ailable HARKINS, ISAURO Personal Relationship Unknown Unav ailable HARKINS, ISAURO Personal Relationship Unknown Unav ailable HARKINS, ISAURO Personal Relationship Unknown Unav ailable HARKINS, ISAURO Personal Relationship Unknown Unav ailable HARKINS, ISAURO Personal Relationship Unknown Unav ailable HARKINS, ISAURO Personal Relationship Unknown Unav ailable HARKINS, ISAURO Personal Relationship Unknown Unav ailable HARKINS, ISAURO Personal Relationship Unknown Unav ailable AGNIESZKA MAURER child Unknown Unavailable HARKINS, ISAURO Personal Relationship Unknown Unav ailable HARKINS, ISAURO Personal Relationship Unknown Unav ailable HARKINS, ISAURO Personal Relationship Unknown Unav ailable HARKINS, ISAURO Personal Relationship Unknown Unav ailable HARKINS, ISAURO spouse Unknown Unavailable HARKINS, ISAURO Personal Relationship Unknown Unav ailable HARKINS, ISAURO Personal Relationship Unknown Unav ailable HARKINS, ISAURO spouse Unknown Unavailable HARKINS, ISAURO Personal Relationship Unknown Unav ailable HARKINS, ISAURO Personal Relationship Unknown Unav ailable Care Team Providers Care Filenet Admin Name Role Phone Eamon BRANDT, Pasquale M Primary Care Physician Encounter [facility] [place] Date(s): 07/14/25 - 08/13/25 [facility] [address] [place] [address]- Encounter Type: Triage Allergies, Adverse Reactions, Alerts Substance Criticality Severity Reaction Reaction Severity Status ciprofloxacin diarrhea Active codeine nausea Active baclofen SEVERE GI UPSET Acti ve Spiriva 1 Active Macrobid GI upset Active 1urinary Immunizations Given and Recorded Vaccine Date Status Refusal Reason influenza virus vaccine, inactivated 1 08/06/24 Gi marlene influenza virus vaccine, inactivated 2 07/18/23 Gi marlene influenza virus vaccine, inactivated 3 08/12/22 Gi [...] 08/17/10 Give n pneumococcal 20-valent conjugate vaccine 6 02/13/23 Given [id number] 12y+ bivalent booster vax 7 08/12/22 Given SARS-CoV-2 (COVID-19) mRNA-1273 vaccine 10/19/21 R ecorded pneumococcal 23-valent vaccine 8 07/26/21 Given SARS-CoV-2 (COVID-19) mRNA BNT-162b2 vac 01/21/21 Recorded SARS-CoV-2 (COVID-19) mRNA BNT-162b2 vac 12/30/20 Recorded zoster vaccine, inactivated 09/23/20 Recorded zoster vaccine, inactivated 05/21/20 Recorded tetanus-diphtheria toxoids (Td) 01/10/18 Given tetanus-diphtheria toxoids (Td) 12/01/95 Given pneumococcal 13-valent vaccine 10/22/14 Given FluLaval (oldterm) 06/08/12 Given influ virus vac, H1N1, inactive(oldterm) 06/15/11 Given influ virus vac, H1N1, inactive(oldterm) 9 09/22/09 Given Zostavax (oldterm) 05/13/09 Given Influenza Inactive (IM) (oldterm) 10 08/05/08 Give n Tet/Diphth/Acel, Pertussis (oldterm) 12/05/07 Give n Pneumococcal 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 Given 1Result Comment: [id number] 2Result Comment: [id number] 3Result Comment: [facility]-[id number] left upper deltoid 4Result Comment: [facility]: [id number] 5Result Comment: [07/11/2017] [facility]; [id number] HIGH DOSE 6Result Comment: [id number] 7Result Comment: [facility]-[id number] left lower deltoid 8Result Comment: [facility]: [id number] 9Admin Note: H1N1 10Admin Note: recieved elsewhere Medications amLODIPine 5 mg oral tablet 1 tablet, By Mouth, Daily, # 90 tablet, 1 Refills, Maintenance, 01/29/25 7:18:00 AM EDT, [facility], 167.6, cm, 10/30/24 11:10:00 EST, Height Start Date: 01/29/25 Status: Ordered Medication Dispense Status: Completed Quantity: 90.0 Unit: tablet Total Allowed Fills: 1 Fills Dispensed: 0 Ativan 0.5 mg oral tablet 1 tablet = 0.5 mg, By Mouth, Every 12 hours, PRN as needed for anxiety, Maintenance, 08/09/25 3:51:00 PM EST, Partial fill upon patient request if the prescription is for a schedule II opioid drug. Start Date: 08/09/25 Status: Ordered Medication Dispense Status: Completed Total Allowed Fills: 1 Fills Dispensed: 0 atorvastatin 40 mg oral tablet 1 tablet = 40 mg, By Mouth, Daily at bedtime, Maintenance, 08/09/25 3:46:00 PM EST, Partial fill upon patient request if the prescription is for a schedule II opioid drug. Start Date: 08/09/25 Status: Ordered Medication Dispense Status: Completed Total Allowed Fills: 1 Fills Dispensed: 0 calcium (as citrate)-vitamin D 315 mg-250 intl units oral tablet 1 tablet, By Mouth, 2 times a day, # 120 tablet, 3 Refills, Maintenance, 04/20/23 4:10:00 PM EDT, Tablet, [facility], Partial fill upon patient request if the prescription is for a schedule II opioid drug., 1 tablet By Mouth 2 times a day, 167.6, cm, 03/23/23 10:29:00 EDT, Height, 97.8, kg,04/29/22 14:30:00 EDT, Dry Weight Start Date: 04/20/23 Status: Ordered Medication Dispense Status: Completed Quantity: 120.0 Unit: tablet Total Allowed Fills: 4 Fills Dispensed: 0 Indications: Age-related osteoporosis without current pathological fracture; Secondary hyperparathyroidism of renal origin; Dulcolax 10 mg rectal suppository 1 supp = 10 mg, Rectally, Every 24 hours, PRN as needed for constipation, Maintenance, 08/09/25 3:46:00 PM EST, Partial fill upon patient request if the prescription is for a schedule II opioid drug. Start Date: 08/09/25 Status: Ordered Medication Dispense Status: Completed Total Allowed Fills: 1 Fills Dispensed: 0 FeroSul 325 mg oral tablet 1 tablet = 325 mg, By Mouth, 2 times a day, Maintenance, 08/09/25 3:48:00 PM EST, Partial fill upon patient request if the prescription is for a schedule II opioid drug. Start Date: 08/09/25 Status: Ordered Medication Dispense Status: Completed Total Allowed Fills: 1 Fills Dispensed: 0 Fleet Enema 19 gm-7 gm rectal enema 1 each, Rectally, Daily, PRN as needed for constipation, Maintenance, 08/09/25 3:48:00 PM EST, Partial fill upon patient request if the prescription is for a schedule II opioid drug. Start Date: 08/09/25 Status: Ordered Medication Dispense Status: Completed Total Allowed Fills: 1 Fills Dispensed: 0 Flonase 50 mcg/inh nasal spray 2 sprays = 100 mcg, Nares, Both, Daily, Maintenance, 08/09/25 3:49:00 PM EST, Partial fill upon patient request if the prescription is for a schedule II opioid drug. Start Date: 08/09/25 Status: Ordered Medication Dispense Status: Completed Total Allowed Fills: 1 Fills Dispensed: 0 FLUoxetine 20 mg oral capsule 1, capsule, By Mouth, Daily, # 90 capsule, Refills 1, Tot. Refills 1, Maintenance, 03/11/25 8:20:00 AM EDT, Route to Pharmacy Electronically, [facility], 167.6, cm, 10/30/24 11:10:00 EST, Height Start Date: 03/11/25 Status: Ordered Medication Dispense Status: Completed Quantity: 90.0 Unit: capsule Total Allowed Fills: 2 Fills Dispensed: 0 hydrOXYzine hydrochloride 10 mg oral tablet = 20 mg, By Mouth, Every 8 hours, PRN Anxiety, # 1 tablet, 0 Refills, Maintenance, 08/11/25 12:24:00 PM EST, Tablet, Partial fill upon patient request if the prescription is for a schedule II opioid drug. Start Date: 08/11/25 Status: Ordered Medication Dispense Status: Completed Quantity: 1.0 Unit: tablet Total Allowed Fills: 1 Fills Dispensed: 0 Lasix 40 mg oral tablet 40 mg, 1, tablet, By Mouth, Daily, # 30 tablet, Refills 0, Tot. Refills 0, Maintenance, 07/29/25 2:18:00 PM EDT, Do Not Route, Partial fill upon patient request if the prescription is for a schedule II opioid drug. Start Date: 07/29/25 Status: Ordered Medication Dispense Status: Completed Quantity: 30.0 Unit: tablet Total Allowed Fills: 1 Fills Dispensed: 0 lidocaine 4% patch 1 patch, Topically, Daily, Applied to both knees, Maintenance, 08/09/25 3:50:00 PM EST, Partial fillupon patient request if the prescription is for a schedule II opioid drug. Start Date: 08/09/25 Status: Ordered Medication Dispense Status: Completed Total Allowed Fills: 1 Fills Dispensed: 0 melatonin 3 mg oral tablet 2 tablet = 6 mg, By Mouth, Daily at bedtime, Maintenance, 08/09/25 3:52:00 PM EST, Partial fill uponpatient request if the prescription is for a schedule II opioid drug. Start Date: 08/09/25 Status: Ordered Medication Dispense Status: Completed Total Allowed Fills: 1 Fills Dispensed: 0 Milk of Magnesia 1200 mg/15 mL oral liquid 30 mL = 2,400 mg, By Mouth, Every 24 hours, PRN Constipation, Maintenance, 08/09/25 3:52:00 PM EST, Partial fill upon patient request if the prescription is for a schedule II opioid drug. Start Date: 08/09/25 Status: Ordered Medication Dispense Status: Completed Total Allowed Fills: 1 Fills Dispensed: 0 omeprazole 20 mg oral enteric coated capsule 1 capsule = 20 mg, By Mouth, Daily, Maintenance, 08/09/25 3:52:00 PM EST, Partial fill upon patient request if the prescription is for a schedule II opioid drug. Start Date: 08/09/25 Status: Ordered Medication Dispense Status: Completed Total Allowed Fills: 1 Fills Dispensed: 0 oxyCODONE 5 mg oral tablet 2.5 mg, 0.5, tablet, By Mouth, Every 6 hours, PRN, Refills 0, Tot. Refills 0, Maintenance, Pain , Moderate, 08/09/25 3:53:00 PM EST, Partial fill upon patient request if the prescription is for a schedule II opioid drug. Start Date: 08/09/25 Status: Ordered Medication Dispense Status: Completed Total Allowed Fills: 1 Fills Dispensed: 0 SEROquel 25 mg oral tablet 25 mg, 1, tablet, By Mouth, Daily at bedtime, Maintenance, 08/09/25 3:53:00 PM EST, Partial fill upon patient request if the prescription is for a schedule II opioid drug. Start Date: 08/09/25 Status: Ordered Medication Dispense Status: Completed Total Allowed Fills: 1 Fills Dispensed: 0 Tylenol 325 mg oral tablet 650 mg, 2, tablet, By Mouth, Every 4 hours, PRN, NTE 3 gm/24 hours, Maintenance, Mild Pain/Fever, 08/09/25 3:45:00 PM EST, Partial fill upon patient request if the prescription is for a schedule II opioid drug. Start Date: 08/09/25 Status: Ordered Medication Dispense Status: Completed Total Allowed Fills: 1 Fills Dispensed: 0 vancomycin 2 g intravenous injection See Instructions, See OPAT instructions: End date: 08/17/2025, # 1 each, 0 Refills, Acute 08/17/25 9:00:00 AM EST, 07/29/25 2:18:00 PM EDT, Partial fill upon patient request if the prescription is for a schedule II opioid drug. Start Date: 07/29/25 Stop Date: 08/17/25 Status: Ordered Medication Dispense Status: Completed Quantity: 1.0 Unit: each Total Allowed Fills: 1 Fills Dispensed: 0 Vitamin B12 1000 mcg oral tablet 1 tablet = 1,000 mcg, By Mouth, Daily, Maintenance, 08/09/25 3:48:00 PM EST, Partial fill upon patient request if the prescription is for a schedule II opioid drug. Start Date: 08/09/25 Status: Ordered Medication Dispense Status: Completed Total Allowed Fills: 1 Fills Dispensed: 0 Vitamin D3 1000 intl units oral tablet 1 tablet = 25 mcg, By Mouth, Daily, Maintenance, 08/09/25 3:47:00 PM EST, Partial fill upon patient request if the prescription is for a schedule II opioid drug. Start Date: 08/09/25 Status: Ordered Medication Dispense Status: Completed Total Allowed Fills: 1 Fills Dispensed: 0 Vitamin D3 50,000 intl units oral capsule 1 capsule = 1,250 mcg, By Mouth, Every 30 days, # 3 capsule, 1 Refills, Maintenance, 01/27/25 1:18:00 PM EDT, Capsule, [facility], 167.6, cm, 10/30/24 11:10:00 EST, Height Start Date: 01/27/25 Stop Date: 02/26/25 Status: Ordered Medication Dispense Status: Completed Quantity: 3.0 Unit: capsule Total Allowed Fills: 2 Fills Dispensed: 0 Problem List Condition Confirmation Course Effective Dates Status H ealth Status Informant Allergic rhinitis Confirmed Active Aortic heart murmur;nil echo 2016 1 Confirmed Active Back pain, chronic Confirmed Active Trochanteric bursitis Confirmed Active Chronic fatigue Confirmed Active Chronic renal disease, stage 3, moderately decreased glomerular filtration rate (GFR) between 30-59 mL/min/1.73 square meter Confirmed Active CHF (congestive heart failure) Confirmed Active Cough variant asthma 2 Confirmed [...] Confirmed Active Chronic venous insufficiency Confirmed Active Pneumonia Confirmed Active Pyuria Confirmed Active Depression, major, recurrent, mild 7, 8, 9, 10 Confirmed Active Secondary hyperparathyroidism/e ndocrinology Confirmed Active Sepsis Confirmed Active Severe obesity (BMI 35.0-39.9) with comorbidity Confirmed Active Torus palatinus Confirmed Active Unspecified [...] 11rx Social History Social History Type Response Sexual Sexually involved in last 6 months: No. Smoking Status Never smoker entered on: 10/09/13 Sex Sex Representation Female (finding) Patient Care team information Care Team Personnel Name: Lakia Hoyt RN Position: [facility] RN Member Role: Primary Care Nurse Name: Carmella Stanton RN Position: [facility] RN Member Role: Primary Care Nurse Name: Silver Page RN Position: [facility] RN Member Role: Primary Care Nurse Name: Juliet Hay NP Position: [facility] PCO Associate Professional Member Role: Primary Care Nurse Name: Jovana Pal NP Position: [facility] PCO Associate Professional Member Role: Lifetime Consulting Provider Address: [address] [place] [id number]- Telecom: Name: Dayanara Lamas RN Position: [facility] RN Supv Member Role: Primary Care Nurse Name: Rebel Wilkinson RN Position: [facility] RN Member Role: Primary Care Nurse Name: Saji Barton RN Position: [facility] RN Member Role: Primary Care Nurse Name: Aubrey Friedman RN Position: [facility] RN Supv Member Role: Primary Care Nurse Name: Tiara Ramirez RN Position: [facility] RN Member Role: Primary Care Nurse Name: Michaela Castillo RN Position: [facility] RN Member Role: Primary Care Nurse Name: Maddy Stoddard RN Position: [facility] RN Supv Member Role: Primary Care Nurse Name: Leticia Barth RN Position: [facility] Onco RN Member Role: Primary Care Nurse Name: Stacy Garcia RN Position: [facility] AMB Nurse Member Role: Primary Care Nurse Name: Luis Mayen MD Position: [facility] Renal MD Member Role: Lifetime Consulting Physician Address: [address] [facility] [address] [facility] [address] Telecom: Name: María Elena Dixon RN Position: S RN Member Role: Primary Care Nurse Name: Benita Tom RN Position: S RN Member Role: Primary Care Nurse Name: Pasquale Knutson MD Position: Reference Physician Member Role: PCP Address: [address] [place] [address] Telecom: Name: Epifanio Simms RN Position: S RN Member Role: Primary Care Nurse Name: Jose Huff RN Position: S RN Member Role: Primary Care Nurse Name: Madie Dozier RN, Trinity Choi Position: S RN Member Role: Primary Care Nurse Name: Srinivasan Richard MD Position: [facility] Renal MD Member Role: Lifetime Consulting Physician Address: [address] [facility] [address] [facility] [address] Telecom: Care Team Related Persons Name: ISAURO HARKINS Name: ISAURO HARKINS Name: AGNIESZKA MAURER Insurance Providers Guarantor name: BRIANNA HARKINS Health Plan Information #: 1 Payer: MEDICARE A INPT 26 Payer Identifier: NA Member Number: [id number] Group Number: NA Subscriber Identifier: NA Relationship to Subscriber: self Coverage Type: MEDICARE Coverage Verification Date: NA Telecom: NA Address: Health Plan Information #: 2 Payer: FOR LIFE Payer Identifier: NA Member Number: [id number] Group Number: [id number] Subscriber Identifier: NA Relationship to Subscriber: spouse Coverage Type: For Life--Medicare Supplement Coverage Verification Date: NA Telecom: Address:
[2025-08-18 05:52] LABS: MANUAL DIFF FLAG NO
[2025-08-18 06:12] LABS: Hematocrit 24.0 % (37.0-47.0); Hemoglobin 7.9 g/dl (12.0-16.0); Imm Gran Abs Auto 0.03 X10*3/uL (0.00-0.03); Imm Gran Pct Auto 0.5 % (0.0-0.4); Lymphocytes Absolute Auto 1.1 X10*3/uL (1.2-4.9); Mean Corpuscular HGB Conc 32.9 g/dl (31.0-35.0); Mean Corpuscular Hemoglobin 32.2 pg (27.0-33.0); Mean Corpuscular Volume 98.0 fL (80.0-98.0); NRBC Abs Auto 0.000 X10*3/uL (0.0-0.012); NRBC Pct Auto 0.0 /100WBC (0.0-0.2); Platelet Count 286 X10*3/uL (160-400); Red Blood Count 2.45 X10*6/uL (4.20-5.50); White Blood Count 6.3 X10*3/uL (4.8-10.8)
[2025-08-18 06:23] LABS: Anion Gap 16 (12-20); Blood Urea Nitrogen 18 mg/dL (9-16); Calcium 8.9 mg/dL (8.4-10.2); Carbon Dioxide 23 mmol/L (22-29); Chloride 102 mmol/L (96-108); Estimated Glomerular Filt Rate 36; Potassium 3.2 mmol/L (3.3-5.1); Sodium 138 mmol/L (135-145)
--- OUTSIDE RECORDS SUMMARY | 2025-08-18 07:24 | XMS_ITS | Data Portability ---
Author Organization [place] - [facility], [facility] Address [address] [place] [address] Assessment Encounter Date Assessment Date Assessment LastModified by Organization Details LastModified Time 07/15/2021 07/15/2021 Time On Scene with Patient: 00:54:47 [id number] Not available 07/15/2021 16:15:44 Plan of Treatment Reminders Order Date Submit Date Provider Last Modified By Organization Details Last Modified Time Details Appointments None recorded. Lab CBC w/ auto diff 2020 NIRAJ [facility] (Centralized Electronic Ordering - All Locations), Patient Can Go To The Location Of Their Choice, [id number] 03:39:52 BMP + ionized calcium, serum or plasma 2020 NIRAJ [facility] (Centralized Electronic Ordering - All Locations), Patient Can Go To The Location Of Their Choice, [address] 11:47:17 unlisted lab - sars-cov-2 virus PCR (covid-19) 2020 [place] [address] [facility], [address] [place] [address], [address], 13:43:31 urinalysis , dipstick 2020 [facility], [address] [place], [address], 15:46:05 culture, urine 2020 NIRAJ [facility] (Centralized Electronic Ordering - All Locations), Patient Can Go To The Location Of Their Choice, [id number] 07:14:12 Referral None recorded. Procedures None recorded. Surgeries None recorded. Imaging None recorded. Medication Orders None recorded. Patient TargetsNo targets recorded. Patient Instructions Encounter Date Encounter Id Patient Instructions Last Modified By Organization Details Last Modified Time 07/15/2021 [id number] You were seen today for suspicion of UTI given your lower abdominal cramping and pain across your back by your kidneys. You also have a low grade fever today and symptoms suspicious of viral illness or Covid. We completed Covid test and will call you with results. Until results are returned, maintain quarantine precautions until symptom free x 2 days. Your urine dipstick was resulted and indicates unlikely UTI. A urine culture was sent to the lab and we will call you with results. Your urine dipstick indicates mild dehydration. Make sure to avoid your concentrated tea and start drinking plenty of water to hydrate. Concentrate on pushing your fluids and eat small meals, soups. Your Basic Metabolic Profile is non-acute. We are sending results to your PCP. IF YOUR FEVER IS UNCONTROLLED WHILE TAKING TYLENOL, CHEST PAIN, SHORTNESS OF BREATH, NAUSEA, VOMITING DIARRHEA THAT YOU CANNOT CONTROL, UNCONTROLLED PAIN - GO TO THE ER. Thank you [facility] your [facility] today. You were seen today for abdominal pain, nausea, vomiting and/or diarrhea. Medications may have been administered and lab tests may have been performed. At this time, we do not see evidence of a serious surgical or infectious cause of your symptoms. However, lab tests and an evaluation cannot always exclude appendicitis or other serious causes of abdominal pain. Please see a medical professional in 12-24 hours to be re-examined. Seek immediate medical attention for increased pain, vomiting or fever. If you develop any new or worsening symptoms and need after hours care, please go to nearest ER and/or call 911. If you have additional concerns or develop a change in your condition between 8am-10pm, please call [facility] at [phone] to help navigate your care. Not available 07/15/2021 16:07:18 Reason for Referral None Reported. Results Created Date Observation Date Name Description Value Unit Range Abnormal Flag Note LastModifiedBy Organization Detail LastModifiedTime 07/15/20 21 07/16/2021 COMPL ETE CBC WITH DIFF WBC 6.7 K/mm3 (4.0-1 1.0) Not Available [facility] (Centralized Electronic Ordering - All Locations) Patient Can Go To The Location Of Their Choice, 07/16/2021 03:39:52 07/15/2007/16/2021 COMPL ETE CBC WITH DIFF RBC 4.11 M/mm3 (4.20- 5.40) low Not Available [facility] (Centralized Electronic Ordering - All Locations) Patient Can Go To The Location Of Their Choice, 07/16/2021 03:39:52 07/15/2007/16/2021 COMPL ETE CBC WITH DIFF HGB 13.8 gm/dL (11.7- 15.5) Not Available [facility] (Centralized Electronic Ordering - All Locations) Patient Can Go To The Location Of Their Choice, 07/16/2021 03:39:52 07/15/2007/16/2021 COMPL ETE CBC WITH DIFF HCT 39.8 % (35.7- 45.8) Not Available [facility] (Centralized Electronic Ordering - All Locations) Patient Can Go To The Location Of Their Choice, 07/16/2021 03:39:52 07/15/2007/16/2021 COMPL ETE CBC WITH DIFF MCV 96.8 fL (80.0- 100.0) Not Available [facility] (Centralized Electronic Ordering - All Locations) Patient Can Go To The Location Of Their Choice, 07/16/2021 03:39:52 07/15/2007/16/2021 COMPL ETE CBC WITH DIFF MCH 33.6 pg (27.0- 34.0) Not Available [facility] (Centralized Electronic Ordering - All Locations) Patient Can Go To The Location Of Their Choice, 07/16/2021 03:39:52 07/15/2007/16/2021 COMPL ETE CBC WITH DIFF MCHC 34.7 g/dL (33.0- 37.0) Not Available [facility] (Centralized Electronic Ordering - All Locations) Patient Can Go To The Location Of Their Choice, 07/16/2021 03:39:52 07/15/2007/16/2021 COMPL ETE CBC WITH DIFF plt 182 K/mm3 (150-4 60) Not Available [facility] (Centralized Electronic Ordering - All Locations) Patient Can Go To The Location Of Their Choice, 07/16/2021 03:39:52 07/15/2007/16/2021 COMPL ETE CBC WITH DIFF RDW-SD 45.8 fL (<47.0 ) Not Available [facility] (Centralized Electronic Ordering - All Locations) Patient Can Go To The Location Of Their Choice, 07/16/2021 03:39:52 07/15/2007/16/2021 COMPL ETE CBC WITH DIFF MPV 9.8 fL (9.4-1 2.4) Not Available [facility] (Centralized Electronic Ordering - All Locations) Patient Can Go To The Location Of Their Choice, 07/16/2021 03:39:52 07/15/2007/16/2021 COMPL ETE CBC WITH DIFF automated NRBC 0.0 #/100 _WBC' s Not Available [facility] (Centralized Electronic Ordering - All Locations) Patient Can Go To The Location Of Their Choice, 07/16/2021 03:39:52 07/15/2007/16/2021 COMPL ETE CBC WITH DIFF abs. NRBC 0.0 K/mm3 Not Available [facility] (Centralized Electronic Ordering - All Locations) Patient Can Go To The Location Of Their Choice, 07/16/2021 03:39:52 07/15/2007/16/2021 COMPL ETE CBC WITH DIFF neut # 5.1 K/mm3 (1.3-7 .0) Not Available [facility] (Centralized Electronic Ordering - All Locations) Patient Can Go To The Location Of Their Choice, 07/16/2021 03:39:52 07/15/2007/16/2021 COMPL ETE CBC WITH DIFF lymph # 1.0 K/mm3 (0.8-3 .1) Not Available [facility] (Centralized Electronic Ordering - All Locations) Patient Can Go To The Location Of Their Choice, 07/16/2021 03:39:52 07/15/2007/16/2021 COMPL ETE CBC WITH DIFF mono# 0.5 K/mm3 (0.4-0 .9) Not Available [facility] (Centralized Electronic Ordering - All Locations) Patient Can Go To The Location Of Their Choice, 07/16/2021 03:39:52 07/15/2007/16/2021 COMPL ETE CBC WITH DIFF eo # 0.0 K/mm3 (0.0-0 .4) Not Available [facility] (Centralized Electronic Ordering - All Locations) Patient Can Go To The Location Of Their Choice, 07/16/2021 03:39:52 07/15/2007/16/2021 COMPL ETE CBC WITH DIFF baso # 0.0 K/mm3 (0.0-0 .1) Not Available [facility] (Centralized Electronic Ordering - All Locations) Patient Can Go To The Location Of Their Choice, 07/16/2021 03:39:52 07/15/2007/16/2021 COMPL ETE CBC WITH DIFF abs. imm gran 0.0 K/mm3 Not Available [facility] ([facility] Ordering - All Locations) Patient Can Go To The Location Of Their Choice, 07/16/2021 03:39:52 07/15/2007/16/2021 COMPL ETE CBC WITH DIFF neut 76.2 % (44-76 ) high Not Available [facility] (Centralized Electronic Ordering - All Locations) Patient Can Go To The Location Of Their Choice, 07/16/2021 03:39:52 07/15/2007/16/2021 COMPL ETE CBC WITH DIFF lymph 14.9 % (15-43 ) low Not Available [facility] (Centralized Electronic Ordering - All Locations) Patient Can Go To The Location Of Their Choice, 07/16/2021 03:39:52 07/15/2007/16/2021 COMPL ETE CBC WITH DIFF monocyte 7.8 % (4.5-1 0.5) Not Available [facility] (Centralized Electronic Ordering - All Locations) Patient Can Go To The Location Of Their Choice, 07/16/2021 03:39:52 07/15/2007/16/2021 COMPL ETE CBC WITH DIFF eo 0.4 % (0-6) Not Available [facility] (Centralized Electronic Ordering - All Locations) Patient Can Go To The Location Of Their Choice, 07/16/2021 03:39:52 07/15/2007/16/2021 COMPL ETE CBC WITH DIFF baso 0.6 % (0-2) Not Available [facility] (Centralized Electronic Ordering - All Locations) Patient Can Go To The Location Of Their Choice, [facility] 07/16/2021 03:39:52 07/15/2007/16/2021 COMPL ETE CBC WITH DIFF imm gran 0.1 % Not Available [facility] (Centralized Electronic Ordering - All Locations) Patient Can Go To The Location Of Their Choice, [facility] 07/16/2021 03:39:52 07/15/2007/16/2021 URINE CULTU RE specimen description URINE Not Available [facility] ([facility] - All Locations) Patient Can Go To The Location Of Their Choice, [facility] 07/17/2021 07:14:12 07/15/2007/16/2021 URINE CULTU RE special requests NONE Not Available [facility] ([facility] Ordering - All Locations) Patient Can Go To The Location Of Their Choice, [facility] 07/17/2021 07:14:12 07/15/2007/17/2021 URINE CULTU RE culture <10,00 0 COL/ML abnormal Not Available [facility] (Centralized Electronic Ordering - All Locations) Patient Can Go To The Location Of Their Choice, [facility] 07/17/2021 07:14:12 07/15/2007/17/2021 URINE CULTU RE report status FINAL 2020 Not Available [facility] (Centralized Electronic Ordering - All Locations) Patient Can Go To The Location Of Their Choice, [facility] 07/17/2021 07:14:12 07/15/2007/15/2021 urina lysis , dipst ick Appearance clear Not Available [facility] - [place] [address] [place], [address], 07/15/2021 15:32:38 07/15/2007/15/2021 urina lysis , dipst ick Color dark yellow Not Available [facility] - [place] [address] [place], [address], 07/15/2021 15:32:38 07/15/2007/15/2021 urina lysis , dipst ick Glucose (ref: neg) Neg Not Available [facility] - [facility] [address] [place], [address], 07/15/2021 15:32:38 07/15/2007/15/2021 urina lysis , dipst ick Bilirubin (ref: neg) Neg Not Available [facility] - [place] [address] [place], [address], 07/15/2021 15:32:38 07/15/2007/15/2021 urina lysis , dipst ick Ketones (ref: neg) + Not Available [facility] [place] [address] [place], [address], 07/15/2021 15:32:38 07/15/2007/15/2021 urina lysis , dipst ick Specific Tyner (ref: 1.003 - 1.035) 1.030 Not Available [facility] [place] [address] [place], [address], 07/15/2021 15:32:38 07/15/2007/15/2021 urina lysis , dipst ick Blood (ref: neg) Neg Not Available [facility] [address] [place], [address], 07/15/2021 15:32:38 07/15/2007/15/2021 urina lysis , dipst ick pH (ref: 5-7) 5.0 Not Available [facility] - [address] [place], [address], 07/15/2021 15:32:38 07/15/2007/15/2021 urina lysis , dipst ick Protein (ref: neg) Neg Not Available [facility] [place] [address] [place], [address], 07/15/2021 15:32:38 07/15/2007/15/2021 urina lysis , dipst ick Urobilinogen (ref: 0.2) 0 Not Available [facility] [place] [address] [place], [address], 07/15/2021 15:32:38 07/15/2007/15/2021 urina lysis , dipst ick Nitrites (ref: neg) negati ve Not Available [facility] - Home [address] [place], [address], 07/15/2021 15:32:38 07/15/20 21 07/15/2021 urina lysis , dipst ick Leukocytes (ref: neg) Neg Not Available [facility] - Home [address] [place], [address], 07/15/2021 15:32:38 07/15/2007/15/2021 BMP + IONIZ ED CALCI UM, SERUM OR PLASM A glu 121 mg/dL 70-105 Not Available [facility] [address] [place], [address], 07/21/2021 11:47:17 07/15/2007/15/2021 BMP + IONIZ ED CALCI UM, SERUM OR PLASM A BUN 18 mg/dL 8-26 Not Available [facility] [address] [place], [address], 07/21/2021 11:47:17 07/15/20 21 07/15/2021 BMP + IONIZ ED CALCI UM, SERUM OR PLASM A crea 1.3 mg/dL 0.6-1. 3 Not Available [facility] [address] [place], [address], 07/21/2021 11:47:17 07/15/20 21 07/15/2021 BMP + IONIZ ED CALCI UM, SERUM OR PLASM A Na 137 mmol/ L 138-14 6 Not Available [facility] [address] [place], [address], 07/21/2021 11:47:17 07/15/20 21 07/15/2021 BMP + IONIZ ED CALCI UM, SERUM OR PLASM A K 3.5 mmol/ L 3.5-4. 9 Not Available [address], [address], 07/21/2021 11:47:17 07/15/2007/15/2021 BMP + IONIZ ED CALCI UM, SERUM OR PLASM A cL 101 mmol/ L 98-109 Not Available [address], [address], 07/21/2021 11:47:17 07/15/2007/15/2021 BMP + IONIZ ED CALCI UM, SERUM OR PLASM A TCO2 24 mmol/ L 24-29 Not Available [address], [address], 07/21/2021 11:47:17 07/15/2007/15/2021 BMP + IONIZ ED CALCI UM, SERUM OR PLASM A angap 16 mmol/ L 10-20 Not Available [address], [address], 07/21/2021 11:47:17 07/15/2007/15/2021 BMP + IONIZ ED CALCI UM, SERUM OR PLASM A ica 1.19 mmol/ L 1.12-1 .32 Not Available [address], [address], 07/21/2021 11:47:17 07/15/2007/15/2021 BMP + IONIZ ED CALCI UM, SERUM OR PLASM A HCT 41 %pcv 38-51 Not Available [address], [address], 07/21/2021 11:47:17 07/15/2007/15/2021 BMP + IONIZ ED CALCI UM, SERUM OR PLASM A Hb 13.9 g/dL 12-17 Not Available [address], [address], 07/21/2021 11:47:17 08/13/20 21 08/13/2021 PH CORRE CTED IONIZ ED CALCI UM pH corrected ionized calcium 1.26 mmol/ L (1.13- 1.32) Not Available [facility] (Centralized Electronic Ordering - All Locations) Patient Can Go To The Location Of Their Choice, [id number] 08/13/2021 18:43:03 Result Notes None recorded. Procedures Surgical History Date Name Laterality Status Provider Name and Address Organization Details Recorded Time 021 Venipuncture - DH completed Milagros Daniels NP [address] [place], [address], [place] [facility] 07/15/2021 16:22:23 Cataract Surgery completed Milagros Daniels NP [address] [place], [address], [place] [facility] 07/15/2021 15:24:17 arthroplasty of knee completed Milagros Daniels NP [address], [place], [address], [place] [facility] 07/15/2021 15:24:27 Cholecystectomy completed Milagros Daniels NP [address], [place], [address], [place] [facility] 07/15/2021 15:24:44 appendectomy completed Milagros Daniels NP [address] [place], [address], [place] [facility] 07/15/2021 15:24:54 Imaging Results None recorded. Procedure Notes None recorded. Medical Equipment None Reported. Allergies No known drug allergies Medications Name Sig Start Date Stop Date Status Note LastModified by Organization Details LastModified Time fluoxetine 40 mg capsule 2020 completed Not Available Not Available Not Available atorvastatin 40 mg tablet active Not Available Not Available Not Available amlodipine 5 mg tablet active Not Available Not Available No t Available ketorolac 0.5 % eye drops 2020 completed Not Available Not Available Not Available omeprazole 20 mg capsule,delaye d release active Not Available Not Available No t Available montelukast 10 mg tablet active Not Available Not Available No t Available Ativan 0.5 mg tablet active Not Available Not Available Not Available fluoxetine 20 mg capsule active Not Available Not Available N ot Available fluticasone propionate 50 mcg/actuation nasal spray,suspensi on active Not Available Not Available Not Available Vitamin D2 active Not Available Not Av ailable Not Available Vitamin B12 active Not Available Not A vailable Not Available Vitals Date Recorded Body temperature Heart rate Oxygen saturation Oxygen saturation in Arterial blood by Pulse oximetry Respiratory rate Systolic And Diastolic Provider Name and Address Organization Details Last Updated DateTime 99 [degF] 106 /min 95 % 95 % 22 /min 158/82 mm[Hg] Not Available [facility] 15:25:49 Social History Question Answer Notes LastModified by Organizat ion Details LastModified Time Tobacco Smoking Status Never Smoker Milagros Daniels, GREGOR [address], [place], [address], [place] [facility] 07/15/2021 15:23:08 Do You Have An Advance Directive? No Information not available 07/15/2021 What Is Your Code Status? Full Code Information not available 07/15/2021 Within The Past 12 Months, Has It Happened That The Food You Bought Just Didn't Last And You Didn't Have Money To Get More. No Information not available 07/15/2021 Within The Past 12 Months, Have You Worried That Your Food Would Run Out Before You Got Money To Buy More. No Information not available 07/15/2021 Fall Risk: Do You Feel Unsteady When Standing Or Walking? No Uses Cane Outdoors Information not available 07/15/2021 We Know That How And When People Interact With Friends And Family Can Be Very Different From Person To Person. How Often Do You Have The Opportunity To See Or Talk To People That You Care About And Feel Close To? (Ex: Talking To Friends On The Phone Or Visiting Friends Or Family Or Going To Temple Or Club Meetings) 3 Or 4 Times Per Week Information not available 07/15/2021 Excessive Alcohol Or Drug Use No Information not available 07/15/2021 Does This Patient Have A PCP? Yes Information not available 07/15/2021 We Know From Many Of Our Patients That Covering All Of Their Costs Can Be Difficult At Times. This Can Cause Stress And Impact Health. In The Past Year, Have You Been Unable To Get Any Of The Following When It Was Really Needed? No Information not available 07/15/2021 What Is Your Housing Situation Today? I Have Housing Information not available 07/15/2021 Would You Like Help Connecting To Resources? None Information not available 07/15/2021 Sex: Unknown Functional Status Question Answer Note LastModified by Organizat ion Details LastModified Time Do you use any illicit or recreational drugs? No Information not available 07/15/2021 Do you or have you ever used any other forms of tobacco or nicotine? No Information not available 07/15/2021 What is your level of alcohol consumption? None Information not available 07/15/2021 Mental Status None recorded. Family History Relationship Description Onset Age of this Age Resolved Age Notes LastModified by Organization Details LastModified Time Father No current problems or disability Not available 07/15 15:22:45 Mother No current problems or disability Not available 07/15 15:22:45 Medical History Condition Response Coronary Artery Disease N COPD N Depression Y Hypothyroidism N A-fib N Cancer N Stroke N High Cholesterol Y Rheumatoid Arthritis N Kidney Disease Y Parkinson's Disease N Diabetes N CHF N Dementia N Asthma N Pulmonary Embolism N Hypertension Y Osteoporosis Y Gynecological HistoryNo gynecological history recorded. Obstetrics History GPAL:G 0 P 0 0 0 0 Past Encounters Encounter ID Performer Location Encounter Start Date Encounter Closed Date Diagnosis/Indication Diagnosis SNOMED-CT Code Diagnosis ICD10 Code Diagnosis IMO Codes Diagnosis Note [id number] Milagros Daniels NP [facility] [address] [place] [address] 07/15/2021 15:20:29 07/21/2021 10:23:32 Abdominal pain 45972144 R10.9 Overview/H istory: Patient is a 75 year old alert female who presents with generalize d complaints to include, chills, stomach cramping, diarrhea, loss of appetite, pain across back x 5 days. Medical history includes depression , anxiety, hyperlipid emia, HTN, kidney disease. Osteoarthr itis, anxiety IBS. Patient has had her Covid vaccine. Exam: Febrile 99.0. HRR, tachycardi c 106. Hypertensi ve. LSCTA bilaterall y, no WOB. ABD SNT, + BS x 4. No CVA tenderness , no suprapubic tenderness . DDx considered , but not limited to:Covid considered , recent travel + feverUTI considered , unlikely, negative urine dipstickIB S cannot be ruled out, diarrhea reported, cramping reportedGa stroenteri tis considered Mild dehydratio n on urine dipstick 1.030 sp gravity Work up/Results :ExamUrine dipstick flat, Urine culture to labCBC with diff ISTAT 8NA 137k+ 3.5cL 101iCA 1.19TC02 24Glu 121BUN 18Cr 1.3H&H 13.9 41Angap 16 Plan/Discu ssion:1. Report CBC, covid results to patient, report to patient PCP2. Report urine culture results to patient, report to PCP3. Encourage fluids, avoid tea for now4. Tylenol for fever per box instructio n Proper Personal Protective Equipment (PPE), including gloves, eye protection , N95 mask, gown, and shoe covers were donned and doffed appropreugene dennis and all equipment cleaned using approved technique with germicidal disposable wipes prior to and after care of this patient according to [facility]'s infection prevention protocols. In order to obtain further informatio n and compare any laboratory results/va lues, I have accessed old patient records. This informatio n was pertinent in my medical decision making today. Exposure t o SARS-CoV-2 960358898 Z20.822 Fever 326258341 R50.9 Mild dehydration 8071624 119 108 E86.0 Health Concerns Section Related Observation LastModified by Organization Detai ls LastModified Time None Recorded Concern Status LastModified by Organization Details LastModified Time None Recorded Advance Directives Directive N: Payers Insurance Date Sequence Insurance Name Policy Number Policy Carrera Covered Member ID Carrera Member ID Guarantor Name 07/23/2021 1 [place]ICARE B-[place]: [employer] Serena Sanabria [id number] Serena Sanabria 07/13/2021 1 *SELF PAY* Serena Sanabria [id number] Serena Sanabria Notes Date Note Type Note Provider Name and Address Organization Details Recorded Time 07/15/2021 text/html General HPI Template - DHReported by Patient Patient is an alert 75 year female who is new to and new to this provider. Patient chief complaint is concerns for UTI. Symptoms include lower abdominal cramping, chills, diarrhea x 5 days. Alleviating factor is use of heating pad. Patient denies sick exposure, recent travel to [place] by car 2 weeks ago. Patient medical history significant for depression, anxiety, hyperlipidemia, HTN, kidney disease, osteoporosis. Milagros Daniels, GREGOR [address] [place], [address], [place] [facility] 07/15/2021 18:11:17 OBGyn Episode No OBEpisode recorded.
--- OUTSIDE RECORDS SUMMARY | 2025-08-18 07:25 | XMS_ITS | Data Portability ---
Author Organization [facility] M[facility]ann [facility] [address] Address [address] [place] [address] Care Team Providers Care School Bus Monitor Name Role Phone KENJI MEZA Primary Care Provider [phone] Assessment No assessment recorded. Plan of Treatment Reminders Order Date Submit Date Provider Last Modified By Organization Details Last Modified Time Details Appointments None record ed. Lab None record ed. Referral None record ed. Procedures None record ed. Surgeries None record ed. Imaging None record ed. Medication Orders neomyc in-jasmin ymyxin -hydro adrianne 3.5 mg-10, 000 unit/m L-1 % ear drops, susp 023 04/21/20 23 [email or web address], [address] [place], [address], 3 17:01:52 Patient TargetsNo targets recorded. Patient Instructions Encounter Date Encounter Id Patient Instructions Last Modified By Organization Details Last Modified Time 04/21/2023 [id number] What is irritabl e bowel syndrome? Irritable bowel syndrome ( IBS ) is a chronic condition that causes belly pain and problems with bowel movements. Chronic means that it is exterminator termite and needs to be managed throughout a person's life. Some people with IBS have frequent, watery bowel movements (diarrhea). Others do not have enough bowel movements (constipation). Some people go back and forth between diarrhea and constipation. What are the symptoms of IBS? Symptoms include: Stomach pain and cramps, related to a bowel movement Diarrhea, constipation, or both Bloating Gas Is there a test for IBS? No, there is no specific test. But your doctor or nurse can figure out if you have IBS by asking you a few questions, and by running tests to make sure that you do not have something other than IBS. Lots of medical conditions can cause the same symptoms as IBS. So it is important that your doctor or nurse checks the other possibilities. What can I do to feel better? You can: Keep track of what you ate each day, what you did, and how you felt. That way, you can figure out if anything you do or eat makes your symptoms better or worse. Avoid foods that might make your IBS worse. Start by avoiding foods that give you gas. Then, you can try giving up milk, ice cream, and other foods that have traces of milk for 2 weeks. Ask your doctor or nurse for advice on which foods can make IBS worse. Eat more fiber, if you have constipation. You can do this by eating more fruits and vegetables. Or you can take fiber pills or powders. (If eating more fiber makes your symptoms worse, cut back on the fiber.) Get regular physical activity. Try to do something active for 20 to 60 minutes, at least 3 to 5 days a week. Studies show this helps improve IBS symptoms. Even gentle forms of movement, like walking, can help. How is IBS treated? IBS cannot be cured. But there are medicines that can help relieve IBS symptoms, including: Medicines to ease diarrhea Medicines to ease constipation Antidepressants These medicines work by blocking pain. When used to treat IBS, they are given at a much lower dose than would normally be given to treat depression. Medicines called antispasmodics Antibiotics These medicines sometimes help with bloating and diarrhea in some people. Stress can make IBS symptoms worse. Some people find that it helps to talk with a counselor or find other ways to relax and manage stress. What will my life be like? Most people with IBS have the condition for the rest of their life. Even so, most people find ways to improve their symptoms. Keep working with your doctor or nurse until you find an approach that works. decrease hearing and pressure bilateral ears requesting irrigation for cerumen removal. denies any fever or fever with chills, denies any SOB or respiratory distress. Not available 04/21/2023 17:01:49 Water in the ear , from swimming or bathing, makes the ear canal prone to infection. Hot and humid weather also predisposes to infection. Symptoms of otitis externa include: ear pain, fullness or itching in the ear, ear drainage, and temporary loss of hearing. These symptoms are similar to those caused by otitis media (middle ear infection). To differentiate between external ear infection and middle ear infection, the provider looks in the ear with an instrument called an otoscope. It is important to distinguish between the two infections, as they are treated differently: External otitis is treated with drops in the ear canal, while middle ear infection is sometimes treated with an antibiotic by mouth. MEASURES YOU SHOULD TAKE TO HELP TREAT EXTERNAL EAR INFECTION: 1. Use the ear drops regularly, as directed on the prescription. 2. The wiggins to treatment is getting the drops down into the canal and keeping the medicine there. To accomplish this: Lie on your side, with the unaffected ear down. Put three to four drops in the infected ear canal, then gently pull the outer ear back and forth several times, working the medicine deeper into the ear canal. Remain still, fqqj-hfr-aotj-down for about 15 minutes. 3. Keep the ear as dry as possible. Swimming should be postponed until the infection has cleared. Try to avoid getting water in the ear when bathing. If water does get in the ear, the canal can be gently dried with a hair blow dryer. Use the low heat setting, and keep the blow dryer about six inches from the ear. 4. Kdto-wju-qrwjpqu pain medications can relieve discomfort associated with external otitis. Acetaminophen (Tylenol), ibuprofen, or naproxen can be taken, depending on individual preference. 5. Return to the [facility] in about one week. The provider can check to make sure the infection has cleared, continue the medicine if needed, okay a return to swimming, etc. 6. To prevent repeated episodes of otitis externa, try to keep the ear canal dry. Gentle swabbing with Q-tips (never deep into the canal), along with a hair blow dryer (low heat), can be used to dry the ear canal if it gets wet. 7. Should you develop severe pain, fever, severe headache, or stiff neck, see your personal/referral doctor or go to the closest emergency department promptly. Otitis externa does not normally cause these symptoms; another problem, requiring different treatment, could be present Not available 04/21/2023 16:48:26 Reason for Referral None Reported. Problems Name Problem SNOMED Code Status Onset Date Resolution Date Notes Provider Name and Address Organization Details Recorded Time Hypertensive disorder 95985942 Active 2022 Diana Clements null, PA - [facility] 3 16:14:10 Hypercholester olemia 01899684 Active 2022 Diana Clements null, PA - [facility] 3 16:14:18 Anxiety 67213815 Active 2022 Diana Clements null, PA - [facility] 3 16:14:27 Gastroesophage al reflux disease 668814892 Active 2022 Diana Jimenezbe null, PA - [facility] 3 16:14:39 Problem Notes None recorded. Procedures Surgical History Date Name Laterality Status Provider Name and Address Organization Details Recorded Time Cerumen Removal by Irrigation completed Diana Kinjal PA - [facility] 04/21/2023 16:58:33 total knee replacement completed Diana Layton PA - [facility] 04/21/2023 16:15:12 Imaging Results None recorded. Procedure Notes None recorded. Medical Equipment None Reported. Allergies No known drug allergies Medications Name Sig Start Date Stop Date Status Note LastModified by Organization Details LastModified Time amoxicillin 500 mg capsule 04/21 completed Not Available Not Available Not Available atorvastati n 40 mg tablet active Not Available Not Available Not Available amlodipine 5 mg tablet active Not Available Not Available Not Available lorazepam 0.5 mg tablet active Not Available Not Available Not Available betamethaso ne dipropionat e 0.05 % topical cream active Not Available Not Available Not Available omeprazole 20 mg capsule,del ayed release active Not Available Not Available Not Available fluoxetine 20 mg capsule active Not Available Not Available Not Available dicyclomine 10 mg capsule active Not Available Not Available Not Available valsartan 160 mg tablet active Not Available Not Available Not Available neomycin-po lymyxin-hyd rocort 3.5 mg-10,000 unit/mL-1 % ear drops,susp INSTILL 4 DROPS INTO AFFECTED EAR(S) BY OTIC ROUTE 3 TIMES PER DAY x 10 days. 2022 active Not Available Not Available Not Avai lable cyclobenzap rine 5 mg tablet active Not Available Not Available Not Available bupropion HCl XL 150 mg 24 hr tablet, extended release active Not Available Not Available Not Available Vitals Date Recorded Body height Body mass index (BMI) Body weight Pain severity - 0-10 verbal numeric rating [Score] - Reported Respiratory rate Body temperature Oxygen saturation Oxygen saturation in Arterial blood by Pulse oximetry Heart rate Systolic And Diastolic Provider Name and Address Organization Details Last Updated DateTime 3 167.64 cm 37.1 kg/m2 461303. 25 g 0 18 /min 98 [degF] 99 % 99 % 65 /min 140/84 mm[Hg] Diana Layton PA - [facility] 3 16:15:31 Social History Question Answer Notes LastModified by [employer] Details LastModified Time Tobacco Smoking Status Never Smoker Diana trevizo PA - [facility] 04/21/2023 16:15:00 Have You Had Direct Contact, Or Contact During Intimacy, With Monkeypox Rash, Scabs, Or Body Fluids From A Person With Monkeypox? No Information not available 04/21/2023 Have You Recently Traveled Abroad? No Information not available 04/21/2023 Sex: Unknown Functional Status Question Answer Note LastModified by [employer] Details LastModified Time Do you use any illicit or recreational drugs? No Information not available 04/21/2023 Do you or have you ever used any other forms of tobacco or nicotine? No Information not available 04/21/2023 What is your level of alcohol consumption? None Information not available 04/21/2023 Mental Status None recorded. Family History Relationship Description Onset Age of this Age Resolved Age Notes LastModified by Organization Details LastModified Time Father No current problems or disability Not available 04/21 16:14:42 Mother No current problems or disability Not available 04/21 16:14:42 Medical History No medical history recorded. Gynecological History Statement/Question Response Is there any chance of ? No LMP N/A Obstetrics History GPAL:G 0 P 0 0 0 0 Immunizations Vaccine Type Date Status Note Provider Nam e and Address Organization Details Recorded Time zoster recombinant 0 completed Diana trevizo PA - [facility] 04/21/2023 16:09:50 zoster recombinant 0 completed Diana Clements null, PA - [facility] 04/21/2023 16:09:51 zoster recombinant 0 completed Diana Clements null, PA - [facility] 04/21/2023 16:09:51 COVID-19, mRNA, LNP-S, PF, 100 mcg/0.5mL dose or 50 mcg/0.25mL dose 2 completed Diana Kinjal null, PA - [facility] 04/21/2023 16:09:51 COVID-19, mRNA, LNP-S, PF, 30 mcg/0.3 mL dose 1 completed Diana Clements null, PA - [facility] 04/21/2023 16:09:51 COVID-19, mRNA, LNP-S, PF, 30 mcg/0.3 mL dose 1 completed Diana Clements null, PA - [facility] 04/21/2023 16:09:51 Pneumococcal conjugate PCV20, polysaccharide [id number] conjugate, adjuvant, PF 3 completed Diana Kinjal null, PA - [facility] 04/21/2023 16:09:51 pneumococcal polysaccharide PPV23 1 completed Diana Kinjal null, PA - [facility] 04/21/2023 16:09:51 Influenza, split virus, trivalent, preservative 1 completed Diana Clements null, PA - [facility] 04/21/2023 16:09:51 Influenza, split virus, trivalent, preservative 2 completed Diana Kinjal null, PA - [facility] 04/21/2023 16:09:51 Influenza, split virus, trivalent, preservative 0 completed Diana Kinjal null, PA - [facility] 04/21/2023 16:09:51 Past Encounters Encounter ID Performer Location Encounter Start Date Encounter Closed Date Diagnosis/Indication Diagnosis SNOMED-CT Code Diagnosis ICD10 Code Diagnosis IMO Codes Diagnosis Note [id number] [facility] [address] [place] [address] 10/20/2016 13:49:02 10/20/2016 16:16:30 [id number] Manuel Murillo, GREGOR [address] [place] [address] 04/21/2023 15:54:40 04/21/2023 17:11:19 Impacted cerumen in right ear 1940032593 225603 H61.21 Otitis ext martine of right ear 6712793199 278491 H60.91 Irritable bowel syndrome with diarrhea 988995296 K58.0 Patient have IBS for quiet sometime encourage to follow up with her PCP and continue treatment as prescribed . Health Concerns Section Related Observation LastModified by Organization Detai ls LastModified Time None Recorded Concern Status LastModified by Organization Details LastModified Time None Recorded Advance Directives Directive None Recorded Payers Insurance Date Sequence Insurance Name Policy Number Policy Carrera Covered Member ID Carrera Member ID Guarantor Name 05/11/2023 2 FOR LIFE ( - MEDICARE SUPPLEMENT) Serena Sanabria 04/21/2023 1 MED[place] B-[place] [facility] Serena Molly Daniele [id number] Serena Sanabria 04/21/2023 2 FOR LIFE ( - MEDICARE SUPPLEMENT) Serena Sanabria [id number] Serena Sanabria 04/21/2023 2 [facility] Serena Sanabria [id number] Serena Sanabria 04/21/2023 2 [facility] Tylor Augie Sanabria [id number] Serena Sanabria Notes Date Note Type Note Provider Name and Address Organization Details Recorded Time 04/21/20 23 text/htm l Ear problem UCReported by PatientHPIFor quality, patient reportscloggedanddecreased hearing. For severity, patient reportsmoderate. For modifying factors, patient reportshurts to lie on, or pull on earbut reportsdoes not hurt to chewandoften has wax accumulation. For associated symptoms, patient reportspopping noise in the ears. For source of patient information, patient reportsinformation obtained from patient,patient arrived at urgent care ambulatory, andlearning styles: auditory. For location, patient reportsbilateral. For duration, patient reports2 weeks. For context, patient reportsno sick contacts,no recent swimming/water in ear, andno recent air travel. Manuel Murillo NP [address] [place], [address], PA - [facility] 04/21/2023 17:03:20 OBGyn Episode No OBEpisode recorded.
--- OUTSIDE RECORDS SUMMARY | 2025-08-18 07:25 | XMS_ITS | Data Portability ---
Author Organization [place] - [facility], [facility] Address [address] [place] [address] Assessment Encounter Date Assessment Date Assessment LastModified [...] some time difficulty sitting standing. Difficulty walking. Hmpj-vwy-iedtyoh medications have not helped. Now currently affecting [...] greater trochanter, - Milagros s , Obers, Kyrie sign, calf soft, neurovascularly intact. Back Exam. No warmth, effusion, erythema, ecchymosis. Good flexion, extension, lateral bending, and rotation,. No edema, 5/5 strength, LE, negative straight leg raise, nontender paraspinal muscles, nontender spinous processes, calf soft and nontender, neurovascularly intact, +2 reflexes, good L5/S1 function, no drop foot, no radicular symptoms. 2 X-ray views independently reviewed at [facility] o diffuse lumbar spine osteoarthritis Impression: [...] 2024 025 [email or web address] [facility] [place], [address] [place] [address], [address], 16:15:13 physical therapist referral - Evaluate & Rx Lumbar Stabilizati on Program 2023 024 [email or web address] Not available 14:58:30 Procedures None recorded. Surgeries None recorded. Imaging XR, shoulder, 2 or more view - 4v timur shldr. room 1 2024 025 NIRAJ [facility], [address], [address], [place], [address], 5 14:36:51 XR, cervical spine, 1 view - cspine. room 1 2024 025 [email or web address] de2 [facility], [address], [address], [place], [address], 5 14:32:42 Medication Orders Medrol (Moshe) 4 mg tablets in a dose pack 2023 024 [email or web address] [facility], [address] [place], [address], 14:17:45 Patient TargetsNo targets recorded. Patient InstructionsNo instructions recorded. Reason for Referral Physical Therapist Referral for Lumbar radiculopathy Evaluate & RxLumbar Stabilization Program Referring Physician: Meng Mcduffie, Orthopedic Surgery, [id number] Encounter Date: 01/30/2024 Physical Therapist Referral for [...] a4ajBk vP9nXo QUaueC m3YtLR FvZlgJ JJ8mAn HZtai3 2z4821 AC0Klb 3qFWKC uKiQtr MwF INTERFACE [facility] [address], [place], [address], 05/29/2025 14:29:41 05/29/20 25 05/29/2025 XR, cervi blade spine , 1 view [email or web address] ?Encry pted=s hAaTro YD8dLq bEUv6g %2BXZw aYqtaq 0bqfl% 2Fg9IQ a4ajBk vP9nXo QUaueC m3YtLR FvZlgJ JJ8mAn HZtai3 7b7246 AC0Klb 3qFWKC uKiQtr MwF INTERFACE [facility] [address], [place], [address], 05/29/2025 14:29:43 05/29/20 25 05/29/2025 XR, shoul alex, 2 or more view [email or web address] ?Encry pted=s hAaTro YD8dLq bEUv6g %2BXZw aYqtaq 0bqfl% 2Fg9IQ a4ajBk vP9nXo QUaueC m3YtLR FvZlgJ JJ8mAn HZtai3 6v6600 AC0Klb 3qFWKC hKiQtr MwF INTERFACE [facility] [address], [place], [address], 05/29/2025 14:36:53 05/29/20 25 05/29/2025 XR, shoul alex, 2 or more view [email or web address] ?Encry pted=s hAaTro YD8dLq bEUv6g %2BXZw aYqtaq 0bqfl% 2Fg9IQ a4ajBk vP9nXo QUaueC m3YtLR FvZlgJ JJ8mAn HZtai3 9h5759 AC0Klb 3qFWKC hKiQtr MwF INTERFACE [facility] [address], [place], [address], 05/29/2025 14:36:55 Result Notes Documentation Provider Name and Address Organization Details Recorded Time Xr, Cervical Spine, 1 View : [email or web address] Encrypted=lcSzLptQY0rKuaT Uv6g%1VMRomZpkfo1crzt%2Fg 4SXb7fwUixJ1uSgDBkzfKn2Tw AIYwXtbSZL5fZvGGmnl40g351 6XQ9Xjn1mPYJUeWcSflSwE Not Available [facility] 05/29/2025 14:29: 42 Xr, Cervical Spine, 1 View : [email or web address] Encrypted=ogKbYntCV9aBtcF Uv6g%8KOIfcDuvde2uloe%2Fg 4TWc8fiDlqI0dZhHMrsdHm7Jy XDCoSfoUGI4dNaEQtux56v274 0BP1Znn0aGUWFgMlBcpSuN Not Available [facility] 05/29/2025 14:29: 43 Xr, Shoulder, 2 Or More View : [email or web address] Encrypted=nuGnHpmHM5zTruM Uv6g%7BSJvoEevpo0sklz%2Fg 9JSc1xmAoiB7uDtWTsybAe6Bl UGZgJehGKB7kCbCNyby84e725 4TM1Ena1pKZBTmPvVdiQvP Not Available [facility] 05/29/2025 14:36: 54 Xr, Shoulder, 2 Or More View : [email or web address] Encrypted=wbOnSdvWL8zCosD Uv6g%1UTAqgIlzex8imqp%2Fg 5FGc4ilRknX0pXrWFipuCj5Px TWReFjdEYE2rAzOSzuz23d262 7QC0Dmp1qANDAaWkPsbRpX Not Available [facility] 05/29/2025 14:36: 55 Problems Name Problem SNOMED Code Status Onset Date Resolution Date Notes Provider Name and Address Organization Details Recorded Time Idiopathi c osteoarth radha 076748679 Active 2016 Problem Code: M17.12; Problem Code Type: ICD-10; Status: 'A'; Not Available [facility] 4 11:42:16 Knee joint prosthesi s present 182113351451 Active 2019 Problem Code: Z96.652; Problem Code Type: ICD-10; Status: 'A'; Not Available [facility] 4 11:42:16 Trochante hazel bursitis of right hip 498114263830 100 Active 2023 Meng Mcduffie PA-C [address], [place], [address] , [facility] 4 08:45:31 Trochante hazel bursitis of left hip 630457503847 103 Active 2023 Meng Mcduffie PA-C [address], [place], [address] , [facility] 4 08:45:38 Lumbar radiculop athy 372407516 [facility] 4 13:49:38 Problem Notes None recorded. Procedures Surgical History Date Name Laterality Status Provider Name and Address Organization Details Recorded Time 07/10/2024 JZHip Inj completed Meng Mcduffie PA-C [address], [place], [address], [facility] 07/10/2024 09:21:08 12/21/2023 JZHip Inj Timur completed Meng Mcduffie PA-C [address], [place], [address], [facility] 12/21/2023 08:45:11 Imaging Results [...] Updated DateTime 12/21/2023 167.64 cm 40.4 kg/m2 002056.09 g MADELYN FAYE [place] - [facility] 12/21/2023 08:44:20 Date Recorded Body height Body mass index (BMI) Body weight Provider Name and Address Organization Details Last Updated DateTime 01/30/2024 167.64 cm 40.4 kg/m2 152610.09 g MADELYN FAYE [facility] 01/30/2024 13:45:45 Date Recorded Body height Body mass index (BMI) Body weight Provider Name and Address Organization Details Last Updated DateTime 05/29/2025 167.64 cm 40.4 kg/m2 730488.09 g Astrid Dutta [facility] 05/29/2025 14:17:16 Date Recorded Body height Body mass index (BMI) Body weight Provider Name and Address Organization Details Last Updated DateTime 07/10/2024 167.64 cm 40.4 kg/m2 001817.09 g Antonio Melgar [facility] 07/10/2024 08:36:41 Social History None recorded. Functional Status None recorded. Mental Status None recorded. Family History Nothing Reported. Medical History No medical history recorded. Gynecological HistoryNo gynecological history recorded. Obstetrics History GPAL:G 0 P 0 0 0 0 Past Encounters Encounter ID Performer Location Encounter Start Date Encounter Closed Date Diagnosis/Indication Diagnosis SNOMED-CT Code Diagnosis ICD10 Code Diagnosis IMO Codes Diagnosis Note [id number] MD Parker Noguera [address] [place] [address] 12/21/2023 08:36:08 12/21/2023 08:54:30 Trochanteric bursitis of right hip 2665171686 30425 M70.61 Trochanter ic bursitis of left hip 1428476317 00200 M70.62 [id number] LEROY Jaramillo [address] [place] [address] 01/30/2024 13:42:33 02/20/2024 13:48:06 Idiopathic osteoarthritis 073051515 M17.12 Lumbar radiculopathy 128 701082 M54.16 [id number] LEROY Jaramillo [address] [place] [address] 07/10/2024 08:29:06 08/05/2024 14:43:21 Trochanteric bursitis of left hip 5526597000 20408 M70.[id number] [place] [address] 05/29/2025 13:45:55 06/10/2025 11:05:41 Pain of bilateral shoulder regions 8862365125 62654 M25.511 M25.512 43436521 Bilateral rotator cuff syndrome 5867820422 5399916 M75.101 M75.102 65013238 Health Concerns Section Related Observation LastModified by Organization Detai ls LastModified Time None Recorded Concern Status LastModified by Organization Details LastModified Time None Recorded Advance Directives Directive None Recorded Payers Insurance Date Sequence Insurance Name Policy Number Policy Carrera Covered Member ID Carrera Member ID Guarantor Name 05/26/2025 1 [place]IC[place] B-[place]: [employer] Serena Sanabria [id number] Serena Sanabria 07/04/2025 2 FOR LIFE () Serena Sanabria [id number] Serena Sanabria Notes Date Note Type Note [...] us as needed. Pablito Mercedes PA-C [address] [facility] [address], [place], [address], [facility] - [facility] 05/29/2025 14:53:44 OBGyn Episode No OBEpisode recorded.
--- OUTSIDE RECORDS SUMMARY | 2025-08-18 07:25 | XMS_ITS | Patient Health Record ---
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 Phone Jovana Pal Primary Care Provider Gaudencio EstradaZaida Unavailable [phone] Allergies Allergen (clinical drug ingredient) Drug/Non Drug Allergy documented on EMR Reaction Allergy Type Onset Date Status Levaquin stomach upset Drug Allergy Act douglas Reason For Referral No Information Medications Medication SIG (Take, Route, Frequency, Duration) Notes Start Date End Date Status Fluticasone Furoate PRN Active Ativan 0.5 MG 1 tablet at bedtime as needed Orally Once a day PRN Active Montelukast Sodium 10 MG 1 tablet Orally Once a day; Duration: 30 day(s) Not-Taking Tylenol PRN Active Vitamin B-12 1000 MCG 1 tablet Orally On ce a day; Duration: 30 day(s) Active FLUoxetine HCl 20 MG 1 capsule Orally On ce a day; Duration: 30 day(s) Active Caltrate 600 Active Vitamin D3 Active Calcium Active Atorvastatin Calcium 40 MG 1 tablet Orally Once a day; Duration: 30 day(s) Active immodium PRN Active Sleep Aid Active Omeprazole 20 MG 1 capsule 30 minutes before morning meal Orally Once a day; Duration: 30 day(s) Active Amoxicillin as needed Active amLODIPine Besylate 5 MG 1 tablet Orally Once a day; Duration: 30 day(s) Active Immunizations [...] primary osteoarthritis of the ankle and/or foot (156209613) Osteoarthritis of right ankle or foot (M19.071) Active confirmed Vital Signs Blood pressure diastolic 80 mm Hg 03/24/2025 Height 5ft 6in in 03/24/2025 Blood pressure systolic 122 mm Hg 03/24/2025 Weight 240 lbs 03/24/2025 BMI 38.73 kg/m2 03/24/2025 Procedures Procedure Date Ordered Date Performed Result Body Sit e 86072-DRHYCTV NAIL, 6 OR MORE 09/12/2024 N/A 90462-UEKAEPI NAIL, 6 OR MORE 03/24/2025 N/A Encounters Encounter Location Date Provider Diagnosis [address] [address] 09/12/2024 Zaida Black Pain in right toe(s) M79.674 ; Onychomycosis B35.1 and Pain in left toe(s) M79.[address] [address] 03/24/2025 Zaida Black Onychomycosis B35.1 ; Osteoarthritis of right ankle or foot M19.071 ; Pain in right toe(s) M79.674 ; Pain in left toe(s) M79.675 and Arthralgia of right ankle M25.[address] [address] 08/19/2024 Zaida Black [address] [address] 12/17/2024 Zaida Black [address] [address] 07/23/2025 Zaida Black Assessments Encounter Date Diagnosis (ICD [...] Treatment Pending Test Test Name Order Date 76245-DOPMTMR NAIL, 6 OR MORE 04/22/2021 14314-FZLMKMU NAIL, 6 OR MORE 04/21/2022 45175-BYKZWLH NAIL, 6 OR MORE 08/29/2022 67328-RGGBASA NAIL, 6 OR MORE 12/26/2022 30662-ZVMFSIW NAIL, 6 OR MORE 05/01/2023 04687-MDRERSE NAIL, 6 OR MORE 08/14/2023 52365-XFRLKZH NAIL, 6 OR MORE 11/09/2023 00737-AZNJYBW NAIL, 6 OR MORE 05/13/2024 13223-TVGHMAL NAIL, 6 OR MORE 09/12/2024 28977-JZYVERU NAIL, 6 OR MORE 03/24/2025 87364-Bwrgxuir Plate 04/21/2022 83291-Ondjhyjn Plate 05/01/2023 39098-Tnwlqmev Plate 04/22/2021 90158-Ezszxkgw Plate Each Additional 24605-Xbjezwqt Plate Each Additional Insurance Providers Payer Name Payer Address Payer Phone Subscriber Number Group Number Insured Name Patient Relationship to Insured Coverage Start Date Coverage End Date Medicare National [employer] [address] [place] [address] [id number] Serena Sanabria Self - patient is the insured [facility] [address] [place] [id number] Serena Sanabria Self - patient is the [...] knee replacement 09/2019 Hospitalization History Reason Date(Month/Year) [facility] [place] [facility] [place] stomach issues 08/25
--- OUTSIDE RECORDS SUMMARY | 2025-08-18 07:25 | XMS_ITS | Patient Health Record ---
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 Name Role Phone Kae Jovana CORCORAN Primary Care Provider Chin Parish [phone] Allergies No Known Allergies Reason For Referral No Information Medications Medication SIG (Take, Route, Frequency, Duration) Notes Start Date End Date Status Atorvastatin Calcium 40 MG Tablet Oral; Duration: 90 Active Calcium & Vit D3 Bone Health - Liquid as directed Orally Active Valsartan 160 MG Tablet Oral; Duration: 90 Active QUEtiapine Fumarate 25 MG Tablet 1 tablet at bedtime Orally Once a day; Duration: 30 day(s) Active Amoxicillin 250 MG Tablet Chewable 1 capsule Orally as needed for dentist due to knee surgery Active Omeprazole Active Famotidine 40 MG Tablet 1 Orally Once every morning and once every late afternoon or evening for acid reflux; Duration: 30 day(s) Please remind the patient to stop her omeprazole when she starts this new Rx.Thanks 03/01/2024 Active FLUoxetine HCl 20 MG Capsule Oral; Duration: 90 Active amLODIPine Besylate 5 MG Tablet Oral; Duration: 90 Active Vitamin B12 100 MCG Tablet as directed Orally Active buPROPion HCl ER (XL) 150 MG Tablet Extended Release 24 Hour Oral; Duration: 90 Active Vitamin D Active Dicyclomine HCl 10 MG Capsule 1-2 Orally Q 6 hours as needed for abdominal cramps--you can also try the Dicyclomine before a meal to see if that would help; Duration: 90 days 10/05/2021 Active PROzac Active LORazepam as needed Active Dicyclomine HCl 10 MG Capsule 1 or 2 Orally Q 6 hours prn abdominal cramps/bloating/dis comfort--you can also use it before meals to prevent any symptoms after you eat; Duration: 90 days 10/21/2021 Active Immunizations Vaccine Route Administration Date Status Comme nts Influenza Unknown 08/02/2021 Administered Influenza Unknown 07/25/2023 Administered Social History Social History Drugs/Alcohol: Social Info Question Answer Notes Alcohol Screen Did you have a drink containing alcohol in the past year? No Points 0 Interpretation Negative Additional Details Category Social Info Options Details Miscellaneous: Marital status: Occupation: Retired Section Notes: Nonsmoker; no sig. alcohol Nonsmoker; [...] Status W/U Status Risk Notes Problem Diarrhea (94356824) Diarrhea (R19.7) Active confirmed Problem Anorexia (07330007) Anorexia (R63.0) Active confirmed Problem Irritable bowel syndrome (78436970) Irritable bowel syndrome with both constipation and diarrhea (K58.2) Active confirmed Problem Gastroesophageal reflux disease (disorder) (543892538) Chronic GERD (K21.9) Active confirmed Plan Of Treatment Pending Test Test Name Order Date CELIAC PANEL #10 03/01/2024 Insurance Providers Payer Name Payer Address Payer Phone Subscriber Number Group Number Insured Name Patient Relationship to Insured Coverage Start Date Coverage End Date MEDICARE OF [place] [address] [place] [address] [id number] BRIANNA HARKINS Self - patient is the insured [employer] [address] [place] [address] [id number] BRIANNA HARKINS Self - patient is the insured Medical (General) History Medical History History ICD Code Colonoscopy in 2008 was negative except for diverticulosis Upper endoscopy in 2007 was negative except for a small hiatal hernia and minimal gastritis--biopsies were negative for H. pylori Anxiety and depression Hypertension Colonoscopy in 2015 at [facility] was negative, without any sign of polyps no inflammatory bowel disease--colon biopsies were negative for microscopic colitis Upper endoscopy in 2019 at [facility] was negative except for a hiatal hernia--esophageal biopsies were negative for eosinophilic esophagitis-gastric and duodenal biopsies were not obtained Osteoporosis She reports that she had neg ative celiac disease laboratories in approximately 2019 Hyperlipidemia Irritable bowel syndrome GERD Surgical History Surgery Date(Month/Year) Right knee replacement in 2007 Cholecystectomy Left knee Bilateral eye surgery
--- OUTSIDE RECORDS SUMMARY | 2025-08-18 07:25 | XMS_ITS | Continuity of Care Document ---
Author Organization [place] [facility], JAQUI Gonzales Clinical Address [address] [place] [address] Assessment No assessment recorded. Plan of Treatment Reminders Order Date Submit Date Provider Last Modified By Organization Details Last Modified Time Details Appointments None recorded. Lab None recorded. Referral physical therapist referral - Dx: Timur shldr degenerativ e rotator cuff disease rom & stretching eval & tx 2024 025 [email or web address] - [address], [address], 16:15:13 Procedures None recorded. Surgeries None recorded. Imaging XR, shoulder, 2 or more view - 4v timur shldr. room 1 2024 025 NIRAJ [facility], [address], [address], [place], [address], 5 14:36:51 XR, cervical spine, 1 view - cspine. room 1 2024 025 [email or web address] [facility], [address], [address], [place], [address], 5 14:32:42 Medication Orders None recorded. Patient TargetsNo targets recorded. Patient InstructionsNo instructions recorded. Reason for Referral Physical Therapist Referral for Bilateral rotator cuff syndrome Dx: Timur shldr degenerative rotator cuff diseaserom & stretchingeval & tx Referring Physician: Pablito Mercedes, Orthopedic Surgery, Encounter Date: 05/29/2025 Results Created Date Observation Date Name Description Value Unit Range Abnormal Flag Note LastModifiedBy Organization Detail LastModifiedTime 05/29/20 25 05/29/2025 XR, cervi blade spine , 1 view [email or web address] ?Encry pted=s hAaTro YD8dLq bEUv6g %2BXZw aYqtaq 0bqfl% 2Fg9IQ a4ajBk vP9nXo QUaueC m3YtLR FvZlgJ JJ8mAn HZtai3 9r0368 AC0Klb 3qFWKC uKiQtr MwF INTERFACE [facility] [address], [place], [address], 05/29/2025 14:29:41 05/29/20 25 05/29/2025 XR, cervi blade spine , 1 view [email or web address] ?Encry pted=s hAaTro YD8dLq bEUv6g %2BXZw aYqtaq 0bqfl% 2Fg9IQ a4ajBk vP9nXo QUaueC m3YtLR FvZlgJ JJ8mAn HZtai3 5p3317 AC0Klb 3qFWKC uKiQtr MwF INTERFACE [facility] [address], [place], [address], 05/29/2025 14:29:43 05/29/20 25 05/29/2025 XR, verónica alex, 2 or more view [email or web address] ?Encry pted=s hAaTro YD8dLq bEUv6g %2BXZw aYqtaq 0bqfl% 2Fg9IQ a4ajBk vP9nXo QUaueC m3YtLR FvZlgJ JJ8mAn HZtai3 5i0286 AC0Klb 3qFWKC hKiQtr MwF INTERFACE [facility] [address], [place], [address], 05/29/2025 14:36:53 05/29/20 25 05/29/2025 XR, shoul alex, 2 or more view [email or web address] ?Encry pted=s hAaTro YD8dLq bEUv6g %2BXZw aYqtaq 0bqfl% 2Fg9IQ a4ajBk vP9nXo QUaueC m3YtLR FvZlgJ JJ8mAn HZtai3 6f5058 AC0Klb 3qFWKC hKiQtr MwF INTERFACE [facility] [address], [place], [address], 05/29/2025 14:36:55 Result Notes Documentation Provider Name and Address Organization Details Recorded Time Xr, Cervical Spine, 1 View : [email or web address] Encrypted=lvIrNleJN6xPlaG Uv6g%0IKFutWigai9kong%2Fg 1RJg8jqKrqD3pLwVBncsUb6Dr LVZeCtzVZM7sNfRMtkv57k867 0AB6Ofi6zLDJJbLdGhvBpK Not Available [facility] 05/29/2025 14:29: 42 Xr, Cervical Spine, 1 View : [email or web address] Encrypted=pzNuCmiAJ6nBiiL Uv6g%8GWVweOhceq1uemq%2Fg 7HUy3ewYoaN9wGlUFzojJn8Os FAOsCqyNZS6cQaLNdiu55j535 7NO5Khy7yRMUZsAsCviDuR Not Available [facility] 05/29/2025 14:29: 43 Xr, Shoulder, 2 Or More View : [email or web address] Encrypted=szOcCbzNW2tEykI Uv6g%4PXTuuHonzh9wdxq%2Fg 1ODl5urMfuZ9fFzTWbxuSz8Db BRCbJxuPYJ9bSlZErft69q030 4DR0Fsp3bGMQHhOnKwtTqR Not Available [facility] 05/29/2025 14:36: 54 Xr, Shoulder, 2 Or More View : [email or web address] Encrypted=ylVvUtoCJ5fQgjG Uv6g%7WNHdoIjaom9cygi%2Fg 2UQh3liRqgL9sDbCIxpgGy3Rz OCTeRjmLOC9yYnIXsid29q383 6DR9Gny5iITCOeSbAfgZcW Not Available [facility] 05/29/2025 14:36: 55 Problems Name Problem SNOMED Code Status Onset Date Resolution Date Notes Provider Name and Address Organization Details Recorded Time Idiopathi c osteoarth ritis 786518884 Active 2016 Problem Code: M17.12; Problem Code Type: ICD-10; Status: 'A'; Not Available [facility] 4 11:42:16 Knee joint prosthesi s present 425856572156 Active 2019 Problem Code: Z96.652; Problem Code Type: ICD-10; Status: 'A'; Not Available [facility] 4 11:42:16 Trochante hazel bursitis of right hip 574878364574 100 Active 2023 Meng Mcduffie PA-C [address], [place], [address] , [facility] 4 08:45:31 Trochante hazel bursitis of left hip 773354605007 103 Active 2023 Meng Mcduffie PA-C [address], [place], [address] , [facility] 4 08:45:38 Lumbar radiculop athy 973890753 Active 2023 MADELYN trevizo [place] - [facility] 4 13:49:38 Problem Notes None recorded. Procedures Surgical History Date Name Laterality Status Provider Name and Address Organization Details Recorded Time 07/10/2024 JZHip Inj completed Meng Mcduffie PA-C [address], [place], [address], [facility] 07/10/2024 09:21:08 12/21/2023 JZHip Inj Timur completed Meng Mcduffie PA-C [address], [place], [address], [facility] 12/21/2023 08:45:11 Imaging Results None recorded. Procedure [...] TO MODERATE PAIN WAS GIVEN ON DISCHARGE 12/01/17 completed Statu s: 'Disc ontin ued'; Not Available Not Available Not Available Vitals Date Recorded Body height Body mass index (BMI) Body weight Provider Name and Address Organization Details Last Updated DateTime 05/29/2025 167.64 cm 40.4 kg/m2 393143.09 g Astrid Dutta [place] [facility] 05/29/2025 14:17:16 Social History None recorded. Functional Status None recorded. Mental Status None recorded. Family History Nothing Reported. Medical History No medical history recorded. Gynecological HistoryNo gynecological history recorded. Obstetrics History GPAL:G 0 P 0 0 0 0 Past Encounters Encounter ID Performer Location Encounter Start Date Encounter Closed Date Diagnosis/Indication Diagnosis SNOMED-CT Code Diagnosis ICD10 Code Diagnosis IMO Codes Diagnosis Note [id number] LEROY Costa [address] [place] [address] 05/29/2025 13:45:55 06/10/2025 11:05:41 Pain of bilateral shoulder regions 8334423364 29392 M25.511 M25.512 31845183 Bilateral rotator cuff syndrome 9487109753 5601192 M75.101 M75.102 70613416 Health Concerns Section Related Observation LastModified by Organization Detai ls LastModified Time None Recorded Concern Status LastModified by Organization Details LastModified Time None Recorded Payers Encounter Date Sequence Insurance Name Policy Number Policy Carrera Covered Member ID Carrera Member ID Guarantor Name 05/29/2025 1 [place] B[place] [facility] Serena Sanabria [id number] Serena Sanabria 05/29/2025 2 FOR LIFE () Serena Sanabria [id number] Serena Sanabria Notes Date Note Type Note [...] us as needed. Pablito Mercedes PA-C [address], [place], [address], [place] [facility] 05/29/2025 14:53:44 OBGyn Episode No OBEpisode recorded.
== END 2025-08-18 07:03 | disposition home or self-care (01) ==
LOC: HO.MMNH2L 07:02
PROVIDERS: Visit Provider Physician Assistant Medical
DX: R78.81 Bacteremia (principal); D64.9 Anemia, unspecified; F32.A Depression, unspecified
CPT/HCPCS: 36415; 80048; 85025

== ENCOUNTER 2025-10-01 15:20 | Outpatient (REF) | payer SELFPAY ==
--- OUTSIDE RECORDS SUMMARY | 2024-06-14 08:40 | XMS_ITS ---
Author Organization [facility] Address [address] [place] [address] Care Team Providers Care Charge Aide Name Role Phone Jovana Pal CNP Primary Care Provider Chin Parish [phone] REASON FOR VISIT stomach is a mess Encounters Encounter Location Date Provider Diagnosis [facility] [address] [place] [phone] 06/14/2024 Chin Garcia Plan Of Treatment No Information Progress Notes * BRIANNA HARKINS ADOB: 7 (80 yo F)Acc No.[id number]:06/14/2024 Progress Notes Patient: BRIANNA STEPHENS Provider: Ford Garcia MD :1945 A ge:78 Y S ex:Female Date:06/14/2024 Address:[address] [place], [place] [phone] Pcp:Jovana Pal CNP Subjective: * Chief Complaints: * S tomach is a mess * The named appointment provid er may or may not be the originator of this progress note, and it is not deemed complete until electronically signed by the appointment provider. Sign off status: Pending * Provider: Ford Garcia MD Date: 0 06/14/2024 Generated for Maykel rfanz/Dusty/eTjimmysmitting on: 1 03:57 PM EST
--- OUTSIDE RECORDS SUMMARY | 2024-08-19 09:45 | XMS_ITS ---
Author Organization [facility] Address [address] [place] [address] Care Team Providers Care Talent Buyer Name Role Phone Jovana Pal Primary Care Provider Zaida Elam [phone] Encounters Encounter Location Date Provider Diagnosis [address] [address] 08/19/2024 Zaida Estrada Plan Of Treatment No Information Progress Notes * Serena SANABRIA ADOB: 7 (80 yo F)Acc No.[id number]:08/19/2024 Progress Note Patient: Serena STEPHENS Provider: Angelica Estrada DPM :1945 A ge:78 Y S ex:Female Date:08/19/2024 Address:[address] [place], [place] [phone] Pcp:Jovana Pal Subjective: * Chief Complaints: * * Medical History: Objective: * Vitals: Assessment: Plan: * Treatment: * Images: * The named appointment provid er may or may not be the originator of this progress note, and it is not deemed complete until electronically signed by the appointment provider. Sign off status: Pending * Provider: Angelica Estrada DPM Date: 10/19/2023 Generated for Omairai osei/Faomega/eTransmitting on: 03:58 PM EST
--- OUTSIDE RECORDS SUMMARY | 2024-12-19 09:30 | XMS_ITS ---
Author Organization [facility] Address [address] [place] [address] Care Team Providers Care Assembler Leather Goods Name Role Phone Jovana Pal Primary Care Provider Zaida Elam [phone] Encounters Encounter Location Date Provider Diagnosis [address] [address] 12/19/2024 Zaida Estrada Plan Of Treatment No Information Progress Notes * Serena SANABRIA ADOB: [birth year] (80 yo F)Acc No.[id number]:12/19/2024 Progress Note Patient: Serena STEPHENS Provider: Angelica Estrada DPM :1945 A ge:79 Y S ex:Female Date:12/19/2024 Address:[address] [place], [place] [id number] Pcp:Jovana Pal Subjective: * Chief Complaints: * * Medical History: Objective: * Vitals: Assessment: Plan: * Treatment: * Images: * The named appointment provid er may or may not be the originator of this progress note, and it is not deemed complete until electronically signed by the appointment provider. Sign off status: Pending * Provider: Angelica Estrada DPM Date: 0 12/19/2024 Generated for Omairai ng/Fafabienneg/eTransmitting on: 1 03:57 PM EST
--- OUTSIDE RECORDS SUMMARY | 2025-07-24 06:15 | XMS_ITS ---
Author Organization [facility] Address [address] [place] [address] Care Team Providers Care Python Consultant Name Role Phone Kae, Jovana Primary Care Provider Zaida Elam [phone] Medications Medication SIG (Take, Route, Frequency, Duration) Notes Start Date End Date Status Fluticasone Furoate PRN Active Tylenol PRN Active Calcium Active immodium PRN Active Amoxicillin as needed Active Montelukast Sodium 10 MG 1 tablet Orally Once a day; Duration: 30 day(s) Not-Taking Atorvastatin Calcium 40 MG 1 tablet Orally Once a day; Duration: 30 day(s) Active Sleep Aid Active Omeprazole 20 MG 1 capsule 30 minutes before morning meal Orally Once a day; Duration: 30 day(s) Active amLODIPine Besylate 5 MG 1 tablet Orally Once a day; Duration: 30 day(s) Active Ativan 0.5 MG 1 tablet at bedtime as needed Orally Once a day PRN Active Vitamin B-12 1000 MCG 1 tablet Orally On ce a day; Duration: 30 day(s) Active FLUoxetine HCl 20 MG 1 capsule Orally On ce a day; Duration: 30 day(s) Active Caltrate 600 Active Vitamin D3 Active Encounters Encounter Location Date Provider Diagnosis [facility] [address] [place] [address] 07/24/2025 Zaida Estrada Plan Of Treatment No Information Progress Notes * Serena SANABRIA ADOB: [birth year] (80 yo F)Acc No.[id number]:07/24/2025 Progress Note Patient: B ARTON, Serena A Provider: Angelica Estrada DPM :1945 A ge:79 Y S ex:Female Date:07/24/2025 Address:[address] [place] [address] [phone] Pcp:Jovana Pal Subjective: * Chief Complaints: * * Medical History: * Medications: T aking Sleep Aid , Taking Amoxicillin , Notes to Pharmacist: as needed, Taking Calcium , Taking immodium , Notes to Pharmacist: PRN, Taking Tylenol , Notes to Pharmacist: PRN, Taking Fluticasone Furoate , Notes to Pharmacist: PRN, Taking Ativan 0.5 MG Tablet 1 tablet at bedtime as needed Orally Once a day , Notes to Pharmacist: PRN, Taking Caltrate 600 , Taking Vitamin D3 , Taking Vitamin B-12 1000 MCG Tablet 1 tablet Orally Once a day , Taking FLUoxetine HCl 20 MG Capsule 1 capsule Orally Once a day , Taking Omeprazole 20 MG Capsule Delayed Release 1 capsule 30 minutes before morning meal Orally Once a day , Taking amLODIPine Besylate 5 MG Tablet 1 tablet Orally Once a day , Taking Atorvastatin Calcium 40 MG Tablet 1 tablet Orally Once a day , Not-Taking/PRN Montelukast Sodium 10 MG Tablet 1 tablet Orally Once a day Objective: * Vitals: Assessment: Plan: * Treatment: * Images: * The named appointment provid er may or may not be the originator of this progress note, and it is not deemed complete until electronically signed by the appointment provider. Sign off status: Pending * Provider: Angelica Estrada DPM Date: Generated for Maykel franz/Dusty/Latia on: 03:57 PM EST
--- OUTSIDE RECORDS SUMMARY | 2025-10-01 15:57 | XMS_ITS | Data Portability ---
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 Plan of Treatment [...] % ear drops, susp 023 04/21/20 23 [facility], [address] [place], [address], 3 17:01:52 Patient TargetsNo targets recorded. Patient Instructions Encounter Date Encounter Id Patient Instructions Last Modified By Organization Details Last Modified Time 04/21/2023 [id number] What is irritabl e bowel syndrome? Irritable bowel syndrome ( IBS ) is a chronic condition that causes belly pain and problems with bowel movements. 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 Remain still, hgyc-mlw-jyby-down for about 15 minutes. 3. Keep the [...] about six inches from the ear. 4. Bbtf-csj-rltwyab pain medications can relieve discomfort associated with external otitis. Acetaminophen (Tylenol), ibuprofen, or naproxen can be taken, depending on individual preference. 5. Return to the [facility] in about one week. The provider can [...] Address Organization Details Recorded Time Hypertensive disorder 05554274 Active 2022 Diana Golden null, [place] - [facility] 3 16:14:10 Hypercholester olemia 48679468 Active 2022 Diana Golden null, [place] - [facility] 3 16:14:18 Anxiety 09231508 Active 2022 Diana Golden null, [place] - [facility] 3 16:14:27 Gastroesophage al reflux disease 904824861 Active 2022 Diana Jimenezbe null, PA - [...] Reported Respiratory rate Body temperature Oxygen saturation Heart rate Systolic And Diastolic Provider Name and Address Organization Details Last Updated DateTime 3 167.64 cm 37.1 kg/m2 066011. 25 g 0 18 /min 98 [degF] 99 % 65 /min 140/84 mm[Hg] Diana Golden PA - [facility] 3 16:15:31 Social History Question Answer Notes LastModified by [employer] Details LastModified Time Tobacco Smoking Status Never Smoker Dianamolly Layton null, [place] - [facility] 04/21/2023 16:15:00 Have You Had Direct Contact, Or Contact During Intimacy, With Monkeypox Rash, Scabs, Or Body Fluids From A Person With Monkeypox? No Information not available 04/21/2023 Have You Recently Traveled Abroad? No Information not available 04/21/2023 Sex: Unknown Functional Status Question Answer Note LastModified by [employer] Details LastModified Time Do you use any [...] Recorded Time zoster recombinant 0 completed Diana Golden null, PA - [facility] 04/21/2023 16:09:50 zoster recombinant 0 completed Diana Kinjal null, PA - [facility] 04/21/2023 16:09:51 zoster recombinant 0 completed Diana Golden null, PA - [facility] 04/21/2023 16:09:51 COVID-19, mRNA, LNP-S, PF, 100 mcg/0.5mL dose or 50 mcg/0.25mL dose 2 completed Diana Golden null, PA - [facility] 04/21/2023 16:09:51 COVID-19, mRNA, LNP-S, PF, 30 mcg/0.3 mL dose 1 completed Diana Golden null, PA - [facility] 04/21/2023 16:09:51 COVID-19, mRNA, LNP-S, PF, 30 mcg/0.3 mL dose 1 completed Diana Golden null, PA - [facility] 04/21/2023 16:09:51 Pneumococcal conjugate PCV20, polysaccharide FKW978 conjugate, adjuvant, PF 3 completed Diana Golden null, PA - [facility] 04/21/2023 16:09:51 pneumococcal polysaccharide PPV23 1 completed Diana Kinjal null, PA - [facility] 04/21/2023 16:09:51 Influenza, split virus, trivalent, preservative 1 completed Diana Golden null, PA - [facility] 04/21/2023 16:09:51 Influenza, split virus, trivalent, preservative 2 completed Diana Kinjal null, PA - [facility] 04/21/2023 16:09:51 Influenza, split virus, trivalent, preservative 0 completed Diana Kinjal null, PA - [facility] 04/21/2023 16:09:51 Past Encounters Encounter ID Performer Location Encounter Start Date Encounter Closed Date Diagnosis/Indication Diagnosis SNOMED-CT Code Diagnosis ICD10 Code Diagnosis IMO Codes Diagnosis Note [id number] [facility] [address] [address] 10/20/2016 13:49:02 10/20/2016 16:16:30 [id number] Manuel Murillo, EXPLOSIVE MAN [address] [address] [facility] THIERRY Richard [address] 04/21/2023 15:54:40 04/21/2023 17:11:19 Impacted cerumen in right ear 6403001936 354801 H61.21 Otitis ext martine of right ear 1759119699 981047 H60.91 Irritable bowel syndrome with diarrhea 223047417 K58.0 Patient have IBS for quiet sometime [...] SUPPLEMENT) Serena Sanabria 04/21/2023 1 MEDICARE B-[place]: [facility] Serena Barrientos Daniele [id number] Serena Sanabria 04/21/2023 2 FOR LIFE ( - MEDICARE SUPPLEMENT) Serena Sanabria [id number] Serena Sanabria 04/21/2023 2 [place] - [employer] - [place] () Serena Sanabria [id number] Serena Sanabria 04/21/2023 2 [place] - [employer] () Tylor Ghosh Daniele [id number] Serena Sanabria Notes Date Note Type Note [...] Murillo NP [address] [place], [address], [place] - [facility] 04/21/2023 17:03:20 OBGyn Episode No OBEpisode recorded.
--- OUTSIDE RECORDS SUMMARY | 2025-10-01 15:57 | XMS_ITS | Data Portability ---
Author Organization [place] [facility] Address [address] [place] [address] Assessment Encounter Date Assessment Date Assessment LastModified [...] Go To The Location Of Their Choice, [address] 03:39:52 BMP + ionized calcium, serum or plasma 2020 NIRAJ [facility] (Centralized Electronic Ordering - All Locations), Patient Can Go To The Location Of Their Choice, [address] 11:47:17 unlisted lab - sars-cov-2 virus PCR (covid-19) 2020 [place] [address] [facility], [address] [place] [address], [address], 13:43:31 urinalysis , dipstick 2020 [facility], [address] [place], [address], 15:46:05 culture, urine 2020 NIRAJ [facility] (Centralized Electronic Ordering - All Locations), Patient Can Go To The Location Of Their Choice, [address] 07:14:12 Referral None recorded. Procedures None recorded. Surgeries None recorded. Imaging None recorded. Medication Orders None recorded. Patient TargetsNo targets recorded. Patient Instructions Encounter Date Encounter Id Patient Instructions Last Modified By Organization Details Last Modified Time 07/15/2021 [id number] You were seen today for suspicion of [...] ER. [facility]. You were seen today for [...] in your condition between 8am-10pm, please call Pending sale to [facility] at [phone] to help navigate your care. Not available [...] Go To The Location Of Their Choice, [facility] 07/16/2021 03:39:52 07/15/2007/16/2021 COMPL ETE CBC WITH DIFF imm gran 0.1 % Not Available [facility] (Centralized Electronic Ordering - All Locations) Patient Can Go To The Location Of Their Choice, [facility] 07/16/2021 03:39:52 07/15/2007/16/2021 URINE CULTU RE specimen description URINE Not Available [facility] (Central[facility] Ordering - All Locations) Patient Can Go To The Location Of Their Choice, [facility] 07/17/2021 07:14:12 07/15/2007/16/2021 URINE CULTU RE special requests NONE Not Available [facility] (Centralized Electronic Ordering - All Locations) Patient Can Go To The Location Of Their Choice, [facility] 07/17/2021 07:14:12 07/15/2007/17/2021 URINE CULTU RE culture <10,00 0 COL/ML abnormal Not Available [facility] (Centralized Electronic Ordering - All Locations) Patient Can Go To The Location Of Their Choice, [facility] 07/17/2021 07:14:12 07/15/2007/17/2021 URINE CULTU RE report status FINAL 2020 Not Available [facility] (Centralized Electronic Ordering - All Locations) Patient Can Go To The Location Of Their Choice, [facility] 07/17/2021 07:14:12 07/15/2007/15/2021 urina lysis , dipst ick Appearance clear Not Available [facility] - [facility] [place]me [address] [place], [address], 07/15/2021 15:32:38 07/15/2007/15/2021 urina lysis , dipst ick Color dark yellow Not Available [facility] - Home [address] [place], [address], 07/15/2021 15:32:38 07/15/2007/15/2021 urina lysis , dipst ick Glucose (ref: neg) Neg Not Available [facility] - Home [address] [place], [address], 07/15/2021 15:32:38 07/15/2007/15/2021 urina lysis , dipst ick Bilirubin (ref: neg) Neg Not Available [facility] - [place] [address] [place], [address], 07/15/2021 15:32:38 07/15/2007/15/2021 urina lysis , dipst ick Ketones (ref: neg) + Not Available [facility] [place] [address] [place], [address], 07/15/2021 15:32:38 07/15/2007/15/2021 urina lysis , dipst ick Specific [place] (ref: 1.003 - 1.035) 1.030 Not Available [facility] [place] [address] [place], [address], 07/15/2021 15:32:38 07/15/2007/15/2021 urina lysis , dipst ick Blood (ref: neg) Neg Not Available [facility] [address] [place], [address], 07/15/2021 15:32:38 07/15/2007/15/2021 urina lysis , dipst ick pH (ref: 5-7) 5.0 Not Available [facility] - [address] [place], [address], 07/15/2021 15:32:38 07/15/2007/15/2021 urina lysis , dipst ick Protein (ref: neg) Neg Not Available [facility] [place] [address] [place], [address], 07/15/2021 15:32:38 07/15/2007/15/2021 urina lysis , dipst ick Urobilinogen (ref: 0.2) 0 Not Available [facility] [place] [address] [place], [address], 07/15/2021 15:32:38 07/15/2007/15/2021 urina lysis , dipst ick Nitrites (ref: neg) negati ve Not Available [facility] - Home [address] [place], [address], 07/15/2021 15:32:38 07/15/20 21 07/15/2021 urina lysis , dipst ick Leukocytes (ref: neg) Neg Not Available [facility] - Home [address] [place], [address], 07/15/2021 15:32:38 07/15/2007/15/2021 BMP + IONIZ ED CALCI UM, SERUM OR PLASM A glu 121 mg/dL 70-105 Not Available [facility] [address] [place], [address], 07/21/2021 11:47:17 07/15/2007/15/2021 BMP + IONIZ ED CALCI UM, SERUM OR PLASM A BUN 18 mg/dL 8-26 Not Available [facility] [address] [place], [address], 07/21/2021 11:47:17 07/15/20 21 07/15/2021 BMP + IONIZ ED CALCI UM, SERUM OR PLASM A crea 1.3 mg/dL 0.6-1. [address] Not [address] [facility] [address] [place], [address], 07/21/2021 11:47:17 07/15/20 21 07/15/2021 BMP + IONIZ ED CALCI UM, SERUM OR PLASM A Na 137 mmol/ L 138-14 6 Not Available [facility] [address] [place], [address], 07/21/2021 11:47:17 07/15/20 21 07/15/2021 BMP + IONIZ ED CALCI UM, SERUM OR PLASM A K 3.5 mmol/ L 3.5-4. 9 Not Available [address], [address], 07/21/2021 11:47:17 07/15/2007/15/2021 BMP + IONIZ ED CALCI UM, SERUM OR PLASM A cL 101 mmol/ L 98-109 Not Available [address], [address], 07/21/2021 11:47:17 07/15/2007/15/2021 BMP + IONIZ ED CALCI UM, SERUM OR PLASM A TCO2 24 mmol/ L 24-29 Not Available [address], [address], 07/21/2021 11:47:17 07/15/2007/15/2021 BMP + IONIZ ED CALCI UM, SERUM OR PLASM A angap 16 mmol/ L 10-20 Not Available [address], [address], 07/21/2021 11:47:17 07/15/2007/15/2021 BMP + IONIZ ED CALCI UM, SERUM OR PLASM A ica 1.19 mmol/ L 1.12-1 .32 Not Available [address], [address], 07/21/2021 11:47:17 07/15/2007/15/2021 BMP + IONIZ ED CALCI UM, SERUM OR PLASM A HCT 41 %pcv 38-51 Not Available [address], [address], 07/21/2021 11:47:17 07/15/2007/15/2021 BMP + IONIZ ED CALCI UM, SERUM OR PLASM A Hb 13.9 g/dL 12-17 Not Available [address], [address], 07/21/2021 11:47:17 08/13/20 21 08/13/2021 PH CORRE CTED IONIZ ED CALCI UM pH corrected ionized calcium 1.26 mmol/ L (1.13- 1.32) Not Available [facility] (Centralized Electronic Ordering - All Locations) Patient Can Go To The Location Of Their Choice, [address] 08/13/2021 18:43:03 Result Notes None recorded. Procedures Surgical History Date Name Laterality Status Provider Name and Address Organization Details Recorded Time 021 Venipuncture - DH completed Milagros Daniels NP [address] [place], [address], [place] [facility] 07/15/2021 16:22:23 Cataract Surgery completed Milagros Daniels NP [address] [place], [address], [place] [facility] 07/15/2021 15:24:17 arthroplasty of knee completed Milagros Daniels NP [address], [place], [address], [place] [facility] 07/15/2021 15:24:27 Cholecystectomy completed Milagros Daniels NP [address], [place], [address], [place] [facility] 07/15/2021 15:24:44 appendectomy completed Milagros Daniels NP [address] [place], [address], [place] [facility] 07/15/2021 15:24:54 Imaging Results [...] Recorded Body temperature Heart rate Oxygen saturation Respiratory rate Systolic And Diastolic Provider Name and Address Organization Details Last Updated DateTime 99 [degF] 106 /min 95 % 22 /min 158/82 mm[Hg] Not Available [facility] 15:25:49 Social History Question Answer Notes LastModified by Organizat ion Details LastModified Time Tobacco Smoking Status Never Smoker Milagros Daniels, GREGOR [address], [place], [address], [place] [facility] 07/15/2021 15:23:08 Do You [...] Visiting Friends Or Family Or Going To Alevism Or Club Meetings) 3 Or 4 Times [...] available 07/15 15:22:45 Medical History Condition Response Diabetes N Coronary Artery Disease N CHF N Parkinson's Disease N Cancer N Stroke N Dementia N Hypothyroidism N COPD N Asthma N Depression Y High Cholesterol Y Rheumatoid Arthritis N Pulmonary Embolism N Hypertension Y A-fib N Osteoporosis Y Kidney Disease Y Gynecological HistoryNo gynecological history recorded. Obstetrics History GPAL:G 0 P 0 0 0 0 Past Encounters Encounter ID Performer Location Encounter Start Date Encounter Closed Date Diagnosis/Indication Diagnosis SNOMED-CT Code Diagnosis ICD10 Code Diagnosis IMO Codes Diagnosis Note [id number] Milagros Daniels NP [facility] [address] [facility] [place] [place] [place] [address] 07/15/2021 15:20:29 07/21/2021 10:23:32 Abdominal pain 26114970 R10.9 Overview/H istory: Patient is a 75 [...] up/Results :ExamUrine dipstick flat, [facility] ISTAT 8NA 137k+ 3.5cL 101iCA [...] after care of this patient according to [facility]'s infection prevention protocols. In order to obtain further informatio n and compare any laboratory results/va lues, I have accessed old patient records. This informatio n was pertinent in my medical decision making today. Exposure t o SARS-CoV-2 572642749 Z20.822 Fever 635496065 R50.9 Mild dehydration 4770784 119 108 E86.0 Health Concerns Section Related Observation LastModified by Organization Detai ls LastModified Time None Recorded Concern Status LastModified by Organization Details LastModified Time None Recorded Advance Directives Directive N: Payers Insurance Date Sequence Insurance Name Policy Number Policy Carrera Covered Member ID Carrera Member ID Guarantor Name 07/23/2021 1 [place]ICARE B-[place]: [employer] Serena Sanabria [id number] Serena Sanabria 07/13/2021 1 *SELF PAY* Serena Daniele [id number] Serena Sanabria Notes Date Note Type Note [...] Patient denies sick exposure, recent travel to [place] by car 2 weeks ago. Patient medical history significant for depression, anxiety, hyperlipidemia, HTN, kidney disease, osteoporosis. Milgaros Daniels, GREGOR [address] [place] [address], [address], [place] [facility] 07/15/2021 18:11:17 OBGyn Episode No OBEpisode recorded.
--- OUTSIDE RECORDS SUMMARY | 2025-10-01 15:58 | XMS_ITS | Patient Health Record ---
Author [facility] Address [address] [place] [address] Care Team Providers Care Ground Operations Supervisor Name Role Phone Jovana Pal Primary Care Provider Gaudencio EstradaZaida Unavailable [phone] Allergies Allergen (clinical drug ingredient) Drug/Non Drug [...] primary osteoarthritis of the ankle and/or foot (191210776) Osteoarthritis of right ankle or foot (M19.071) Active confirmed Vital Signs Blood pressure diastolic 80 mm Hg 03/24/2025 Height 5ft 6in in 03/24/2025 Blood pressure systolic 122 mm Hg 03/24/2025 Weight 240 lbs 03/24/2025 BMI 38.73 kg/m2 03/24/2025 Procedures Procedure Date Ordered Date Performed Result Body Sit e 02458-AWFXSRX NAIL, 6 OR MORE 03/24/2025 N/A Encounters Encounter Location Date Provider Diagnosis [facility] [address] 03/24/2025 Zaida Estrada Onychomycosis B35.1 ; Osteoarthritis of right ankle or foot M19.071 ; Pain in right toe(s) M79.674 ; Pain in left toe(s) M79.675 and Arthralgia of right ankle M25.[address] [facility] [address] 12/17/2024 Zaida Estrada [facility] [address] 07/23/2025 Zaida Estrada Assessments Encounter Date Diagnosis (ICD Code) Assessment Notes Treatment Notes Treatment Clinical Notes Section Notes 03/24/2025 Onychomycosis (ICD-10 - B35.1) 03/24/2025 Osteoarthritis of right ankle or foot (ICD-10 - M19.071) 03/24/2025 Pain in right toe(s) (ICD-10 - M79.674) 03/24/2025 Pain in left toe(s) (ICD-10 - M79.675) 03/24/2025 Arthralgia of right ankle (ICD-10 - M25.571) Plan Of Treatment Pending Test Test Name Order Date [id number] NAIL, 6 OR MORE 04/22/2021 96192-LSKZDSX NAIL, 6 OR MORE 04/21/2022 32868-OESCDTB NAIL, 6 OR MORE 08/29/2022 94753-HQQKIOA NAIL, 6 OR MORE 12/26/2022 08650-MOAGSEH NAIL, 6 OR MORE 05/01/2023 45966-RGVLNAM NAIL, 6 OR MORE 08/14/2023 64836-EAPXEOU NAIL, 6 OR MORE 11/09/2023 33009-ZWTBWEA NAIL, 6 OR MORE 05/13/2024 15786-[id number] NAIL, 6 OR MORE 09/12/2024 35868-UEXEHAS NAIL, 6 OR MORE 03/24/2025 14817-Mfofpkyn Plate 04/21/2022 43294-Lrnycavs Plate 05/01/2023 15478-Divafjdu Plate 04/22/2021 53030-Jefvhybi Plate Each Additional 90289-Ogwvzzlv Plate Each Additional Insurance Providers Payer Name Payer Address Payer Phone Subscriber Number Group Number Insured Name Patient Relationship to Insured Coverage Start Date Coverage End Date Medicare National [employer] [address] [place] [address] [id number] Serena Sanabria Self - patient is the insured [facility] [employer] [address] [place] [address] [id number] Serena Sanabria Self - patient is the [...] Reason Date(Month/Year) [facility] [place]
--- OUTSIDE RECORDS SUMMARY | 2025-10-01 15:58 | XMS_ITS | Patient Health Record ---
Author Organization [facility] Address [address] [place] [address] Care Team Providers Care Director Medical Affairs Name Role Phone Kae Jovana CORCORAN Primary Care Provider [place] [phone] Allergies No Known Allergies Reason For Referral [...] Status W/U Status Risk Notes Problem Diarrhea (65578181) Diarrhea (R19.7) Active confirmed Problem Anorexia (44488474) Anorexia (R63.0) Active confirmed Problem Irritable bowel syndrome (84884158) Irritable bowel syndrome with both constipation and diarrhea (K58.2) Active confirmed Problem Gastroesophageal reflux disease (disorder) (923409676) Chronic GERD (K21.9) Active confirmed Plan Of Treatment Pending Test Test Name Order Date CELIAC PANEL #10 03/01/2024 Insurance Providers Payer Name Payer Address Payer Phone Subscriber Number Group Number Insured Name Patient Relationship to Insured Coverage Start Date Coverage End Date MEDICARE OF [place] [address] [place] [address] [phone] [id number] BRIANNA HARKINS Self - patient is the insured [employer] [address] [place] [address] [id number] BRIANNA HARKINS Self - patient is the insured Medical (General) History Medical History History ICD Code Colonoscopy in 2008 was negative except for diverticulosis Upper endoscopy in 2007 was negative except for a small hiatal hernia and minimal gastritis--biopsies were negative for H. pylori Anxiety and depression Hypertension Colonoscopy in 2015 at [facility] was negative, without any sign of polyps no inflammatory bowel disease--colon biopsies were negative for microscopic colitis Upper endoscopy in 2019 at [facility] was negative except for a hiatal hernia--esophageal biopsies were negative for eosinophilic esophagitis-gastric and duodenal biopsies were not obtained Osteoporosis She reports that she had neg ative celiac disease laboratories in approximately 2019 Hyperlipidemia Irritable bowel syndrome GERD Surgical History Surgery Date(Month/Year) Right knee replacement in 2007 Cholecystectomy Left knee Bilateral eye surgery
--- OUTSIDE RECORDS SUMMARY | 2025-10-01 15:58 | XMS_ITS | Data Portability ---
Author Organization [facility], [facility] Address [address] [place] [address] Support Name Relationship Address Phone SERENA SANABRIA self [address] [place] [address] Assessment Encounter Date Assessment Date Assessment LastModified [...] Monitor the effects and follow-up as directed. [email or web address] Not available 12/21/2023 08:45:25 01/30/2024 01/30/2024 I am seeing the patient today under the supervision of was available but who did not see the patient. HPI: Patient presents today complaining of hip and back pain. Patient's been dealing with hip pain for quite some time difficulty sitting standing. Difficulty walking. Bnwc-ybv-udzvjgb medications have not helped. Now currently affecting [...] greater trochanter, - Milagros s , Obers, Winston sign, calf soft, neurovascularly intact. Back Exam. No warmth, effusion, erythema, ecchymosis. Good flexion, extension, lateral bending, and rotation,. No edema, 5/5 strength, LE, negative straight leg raise, nontender paraspinal muscles, nontender spinous processes, calf soft and nontender, neurovascularly intact, +2 reflexes, good L5/S1 function, no drop foot, no radicular symptoms. 2 X-ray views independently reviewed at [facility] o diffuse lumbar spine osteoarthritis Impression: [...] Treatment Reminders Order Date Submit Date Provider Name Organization Details Last Modified By Last Modified Time Details Appointments None audrey chávez Lab None audrey chávez Referral physica l therapi st referra l 2024 14:48: 02 025 Pablito dooley PA-C At Physical Therapy - [address], [address], [place] 5 16:15:[address] st referra l 2023 13:49: 54 024 Meng Mcduffie PA-C Not available Meng Mcduffie PA-C 4 14:58:30 Procedures None recorde d. Surgeries None recorde d. Imaging XR, shoulde r, 2 or more view 2024 14:19: 15 025 Pablito dooley PA-C [facility] [address], [place], [address], Not Available 5 14:36:51 XR, cervica l spine, 1 view 2024 14:19: 15 025 Pablito dooley PA-C [facility] [address], [place], [address], Pablito Mercedes PA-C 5 14:32:42 MedicationOrders None recorde d. VaccineOrders None recorde d. Patient TargetsNo targets recorded. Patient InstructionsNo instructions recorded. Reason for Referral Physical Therapist Referral for Bilateral rotator cuff syndrome Dx: Timur shldr degenerative rotator cuff disease rom & stretching eval & tx Referring Physician: Pablito Mercedes, Orthopedic Surgery, Encounter Date: 05/29/2025 Physical Therapist Referral for Lumbar radiculopathy Evaluate & Rx Lumbar Stabilization Program Referring Physician: Meng Mcduffie, Orthopedic Surgery, [phone] Encounter Date: 01/30/2024 Results Created Date Observation Date Name Description Value Unit Range Abnormal Flag Specimen Type Note LastModifiedBy Organization Detail LastModifiedTime 05/29/2025 05/29/2025 cervical spine 1 view [email or web address]=amElAgbRE7zRgsBIv0o%4HXTizAvpaj9ksex%9Da3RIa8 odLenF3cUpLXqxbFu5OwAAJhZunWCU1gYwMVwit69w6940UI8Xnr9dCMAVnTiKtvMgQ Not Available [facility] , [address],[facility] [address] , [place] , [address], , 05/29/2025 14:29:42 05/29/2025 05/29/2025 cervical spine 1 view [email or web address]=kfHcRwsHG8gIkdVIn7r%5JRXyySpmpn2gnsx%4Qg2UGn3 tdGtfG9iWeQAptnXh0GnSBQdVwsWDG6gEcQJvaj65i8227PX2Ytc4pTXQLbEsOytPpO Not Available [facility] , [address],[facility] [address] , [place] , [address], , 05/29/2025 14:29:43 05/29/2025 05/29/2025 shoulder 4 view [email or web address]=ocAfBznZQ8ePlvQBu2f%4DNLjmBkxfk7qudz%6Yp7WRz6 opXfnY2wKdGWrruBc1HkXCBcSmiZPS8zAkAJebx06z6138LL9Imb7yEHOUgTrOidJaB Not Available [facility] , [address],[facility] [address] , [place] , [address], , 05/29/2025 14:36:54 05/29/2025 05/29/2025 shoulder 4 view [email or web address]=gtXlDkiBV8xPxsKAr9s%4WQVwsGvsut6cypd%1Uh2OJh5 keTbgV3oUqWOukiVb1EeXZOrJowFBN0eVhSGpux40y9858EF4Nwi0wUBRKvJeRuoOeB Not Available [facility] , [address],[facility] [address] , [place] , [address], , 05/29/2025 14:36:55 Result Notes Documentation Provider Name and Address Organization Details Recorded Time Xr, Cervical Spine, 1 View : [email or web address] Encrypted=ltBrZkvDN6kAtgQ Uv6g%1NUGdcVwwtc8bbuq%2Fg 2KHq8fqKsqP9qNvNYhtkKm5Bq RFYvSdrQPY5hMxQWzeb29j423 3CG4Kdr4bFLVCnYzBzbHrQ Not Available [facility] 05/29/2025 14:29: 42 Xr, Cervical Spine, 1 View : [email or web address] Encrypted=scFuRmhKJ6mLqtK Uv6g%2NBRaaRmhqo0vhvx%2Fg 7VDa2zbCxzG3mBfHDmdiMh8Sy OPNhGlcJUQ4eHdYWyvg39d464 0AQ2Dod5gPIPCyFgLwkMoU Not Available [facility] 05/29/2025 14:29: 43 Xr, Shoulder, 2 Or More View : [email or web address] Encrypted=vsXuKerQR1vYrgX Uv6g%3GWJpwNxzun7lbne%2Fg 5RVj6xiZmiO3wOoIIzkyEt0Qq HSFsEgqEVB6xLrEDedw00e574 5CA5Mkf1iHLNOsSyFvwTbW Not Available [facility] 05/29/2025 14:36: 54 Xr, Shoulder, 2 Or More View : [email or web address] Encrypted=wwRqXbkZT4qYqcK Uv6g%7YUNmhBpoya2tnhc%2Fg 6CSq3zsLzgQ4fTfGQaywPu3We NXKsLwcCWW0oZxKIasx08m039 7QO7Trz7wAOVLaFlOqmNjM Not Available [facility] 05/29/2025 14:36: 55 Problems Name Problem SNOMED Code Status Onset Date Resolution Date Notes Provider Name and Address Organization Details Recorded Time Idiopathi c osteoarth ritis 288357266 Active 2016 Problem Code: M17.12; Problem Code Type: ICD-10; Status: 'A'; Not Available [facility] 4 11:42:16 Knee joint prosthesi s present 117453991294 Active 2019 Problem Code: Z96.652; Problem Code Type: ICD-10; Status: 'A'; Not Available [facility] 4 11:42:16 Trochante hazel bursitis of right hip 068713231672 100 Active 2023 Meng Mcduffie PA-C [address], [place], [address] , [facility] 4 08:45:31 Trochante hazel bursitis of left hip 088123657529 103 Active 2023 Meng Mcduffie PA-C [address], [place], [address] , [facility] 4 08:45:38 Lumbar radiculop athy 486156092 Active 2023 [facility] 4 13:49:38 Problem Notes None recorded. Procedures Surgical History Date Name Laterality Status Provider Name and Address Organization Details Recorded Time 07/10/2024 JZHip Inj completed Meng Mcduffie PA-C [address], [place], [address], [facility] 07/10/2024 09:21:08 12/21/2023 JZHip Inj Timur completed Mneg Mcduffie PA-C [address], [place], [address], [facility] 12/21/2023 08:45:11 Imaging Results Imaging Date Name Status LastModifiedBy Organiza tion Detail LastModifiedTime 05/29/2025 cervical spine 1 view completed Not Available [facility] , [address] , [place] , [address], , 05/29/2025 14:29:42 05/29/2025 cervical spine 1 view completed Not Available [facility] , [address] , [place] , [address], , 05/29/2025 14:29:43 05/29/2025 shoulder 4 view completed Not Available [facility] , [address] , [place] , [address], [place] , 05/29/2025 14:36:54 05/29/2025 shoulder 4 view completed Not Available [facility] , [address] , [place] , [address], [place] , 05/29/2025 14:36:55 Procedure Notes None recorded. Medical Equipment None Reported. Allergies No known drug allergies Medications Name Authored On Sig Start Date Stop Date Status Note Indication Fill Status Repeat Number Dispense Quantity LastModified by Organization Details LastModified Time hyosc leena e sulfa te 17:46:14 Hyos cyam ine Sulf ate 0.12 5MG Tabl et 09/09 aborted Statu s: 'Disc ontin ued'; Not Available Not availab le 0 Not Available Not Available [facility] 12/04/2023 17:46:14 oxyco done HCl-o xycod one-A SA 17:46:14 1-2 TABL ETS EVER Y 4 HOUR S PRN FOR MILD TO MODE RATE PAIN WAS GIVE N ON DISC HARG E 09/01 aborted Statu s: 'Disc ontin ued'; Not Available Not availab le 0 Not Available Not Available [facility] 12/04/2023 17:46:14 pseud aubrie morrow in ER 80-70 0 mg table t,ext ended relea se 17:46:14 1-2 TABS EVER Y 4-6 HRS PRN PAIN 01/17 aborted Statu s: 'Disc ontin ued'; Not Available Not availab le 0 Not Available Not Available [facility] 12/04/2023 17:46:14 amoxi cilli n 500 mg capsu le 4 08:38:35 12/20 aborted Not Available Not availab le 0 Not Available MADELYN FAYE [place] [facility] 12/21/2023 08:44:31 gabap entin 100 mg capsu le 4 05:58:10 active Not Available Not availab le 0 Not Available Not Available [facility] 01/30/2024 05:58:10 amlod ipine 5 mg table t 4 20:51:47 active Not Available Not availab le 0 Not Available Not Available [facility] 07/09/2024 20:51:47 atorv astat in 40 mg table t 4 20:51:47 active Not Available Not availab le 0 Not Available Not Available [facility] 07/09/2024 20:51:47 famot idine 40 mg table t 4 20:51:47 active Not Available Not availab le 0 Not Available Not Available [facility] 07/09/2024 20:51:47 fluox etine 20 mg capsu le 4 20:51:47 active Not Available Not availab le 0 Not Available Not Available [facility] 07/09/2024 20:51:47 loraz epam 0.5 mg table t 4 20:51:47 active Not Available Not availab le 0 Not Available Not Available [facility] 07/09/2024 20:51:47 omepr azole 20 mg capsu le,de layed relea se 4 20:51:47 active Not Available Not availab le 0 Not Available Not Available [facility] 07/09/2024 20:51:47 queti apine 25 mg table t 4 20:51:47 active Not Available Not availab le 0 Not Available Not Available [facility] 07/09/2024 20:51:47 valsa rtan 160 mg table t 4 20:51:47 active Not Available Not availab le 0 Not Available Not Available [facility] 07/09/2024 20:51:47 dicyc lomin e 10 mg capsu le 20:51:47 05/29 aborted Not Available Not availab le 0 Not Available Astrid Dutta [facility] 05/29/2025 14:17:42 methy lpred nisol one 4 mg table ts in a dose pack 13:29:35 05/29 aborted Not Available Not availab le 0 Not Available Astrid Dutta [facility] 05/29/2025 14:17:45 neomy jessenia-p olymy fabienne-h ydroc ort 3.5 mg/mL -10,0 00 unit/ mL-1 % ear solut ion 08:38:35 05/29 aborted Not Available Not availab le 0 Not Available Astrid Dutta [facility] 05/29/2025 14:17:51 Vitals Date Recorded Body height Body mass index (BMI) Body weight Provider Name and Address Organization Details Last Updated DateTime 12/21/2023 167.64 cm 40.4 kg/m2 240221.09 g MADELYN [facility] 12/21/2023 08:44:20 Date Recorded Body height Body mass index (BMI) Body weight Provider Name and Address Organization Details Last Updated DateTime 01/30/2024 167.64 cm 40.4 kg/m2 271086.09 g [facility] 01/30/2024 13:45:45 Date Recorded Body height Body mass index (BMI) Body weight Provider Name and Address Organization Details Last Updated DateTime 05/29/2025 167.64 cm 40.4 kg/m2 098520.09 g Astrid Dutta [facility] 05/29/2025 14:17:16 Date Recorded Body height Body mass index (BMI) Body weight Provider Name and Address Organization Details Last Updated DateTime 07/10/2024 167.64 cm 40.4 kg/m2 309048.09 g Antonio Melgar [facility] 07/10/2024 08:36:41 Social History Social History Observation Description Date Observed Sex Unknown 06/10/2025 Legal Sex Female Status Not (finding) 12/31/20 25 No social history survey screeners recorded No social history SDOH screeners recorded Functional Status None recorded. No Functional Screening assessment recorded No Functional SDOH screeners recorded Mental Status None recorded. No Mental Screening assessment recorded No Mental SDOH screeners recorded Family History Nothing Reported. Medical History No medical history recorded. Gynecological HistoryNo gynecological history recorded. Obstetrics History GPAL:G 0 P 0 0 0 0 Past Encounters Encounter ID Performer Location Encounter Start Date Encounter Closed Date Diagnosis/Indication Diagnosis SNOMED-CT Code Diagnosis ICD10 Code Diagnosis IMO Codes Diagnosis Note [id number] Darrell Harris MD [facility] [address] [place] [address] 12/21/2023 08:36:08 12/21/2023 08:54:30 Trochanteric bursitis of right hip 6283880153 35147 M70.61 Trochanter ic bursitis of left hip 1938995242 79090 M70.62 [id number] LEROY Jar[facility] [address] [place] [address] 01/30/2024 13:42:33 02/20/2024 13:48:06 Idiopathic osteoarthritis 869592936 M17.12 Lumbar radiculopathy 128 604369 M54.16 [id number] LEROY Jaramillo [address] [place] [address] 07/10/2024 08:29:06 08/05/2024 14:43:21 Trochanteric bursitis of left hip 2687089783 48697 M70.62 [id number] LEROY [address] [place] [address] 05/29/2025 13:45:55 06/10/2025 11:05:41 Pain of bilateral shoulder regions 9804059274 99216 M25.511 M25.512 [id number] Bilateral rotator cuff syndrome 3585908615 2941120 M75.101 M75.102 [id number] Health Concerns Section Related Observation LastModified by Organization Detai ls LastModified Time None Recorded Concern Status LastModified by Organization Details LastModified Time None Recorded SDOH Concern Status LastModified by Organization Detai ls LastModified Time None Recorded Advance Directives Directive None Recorded Payers Insurance Date Sequence Insurance Name Policy Number Policy Carrera Covered Member ID Carrera Member ID Guarantor Name 05/26/2025 1 [place]ICARE B-[place]: [facility] [employer] Serena Sanabria [id number] Serena Sanabria 07/04/2025 2 FOR LIFE () Serena Sanabria [id number] Serena Sanabria Notes Date Note Type Note [...] us as needed. Pablito Mercedes PA-C [address] [facility] [address], [place], [address], [facility] 05/29/2025 14:53:44 Care Team Name Role Member ID Specialty Address Phone None Recorded. OBGyn Episode No OBEpisode recorded.
[2025-10-01 16:21] LABS: Chlamydia pneumoniae PCR Not Detected (Not Detect.); Coronavirus 229E PCR Not Detected (Not Detect.); Coronavirus HKU1 PCR Not Detected (Not Detect.); Coronavirus NL63 PCR Not Detected (Not Detect.); Coronavirus OC43 PCR Not Detected (Not Detect.); RSV PCR Not Detected (Not Detect.); Rhino/Enterovirus PCR Not Detected (Not Detect.)
[2025-10-01 16:25] LABS: Influenza A H1 PCR Not Detected (Not Detect.); Influenza A H1-2009 PCR Not Detected (Not Detect.); Influenza A H3 PCR Not Detected (Not Detect.); SARS-CoV-2 PCR Detected (Not Detect.)
== END 2025-10-01 15:21 | disposition home or self-care (01) ==
LOC: HO.MMNH1L 15:20
PROVIDERS: Visit Provider Physician Assistant Medical
DX: G72.81 Critical illness myopathy (principal)
CPT/HCPCS: 87633